=== PATIENT | male | born 1960 | race Caucasian/White ===

== ENCOUNTER 2018-06-01 18:38 | Inpatient (IN) | payer MEDICAID ==
[~2018-06-01] VITALS: Ht 177.8 cm; Wt 69.9 kg
[2018-06-01] MEDS ORDERED: FERROUS FUMARA324 M1 PO (18:54)
[2018-06-01] MEDS ORDERED: NOVOLOG100 UNIT/3 SUBQ (18:54)
[2018-06-01] MEDS ORDERED: LEXAPRO10 MG ORAL (18:54)
[2018-06-01] MEDS ORDERED: ZYPREXA10 MG ORAL (18:54)
[2018-06-01 19:00] VITALS: BP 95/44
[2018-06-01 19:23] LABS: HEMATOCRIT 24.3 % (42.0-52.0); HEMOGLOBIN 8.5 G/DL (14.2-18.0); MEAN CORPUSCULAR VOLUME 89 FL (80-99); PLATELET COUNT 220 K/UL (150-450); RED BLOOD COUNT 2.72 M/UL (4.70-6.10); RED CELL DISTRIBUTION WIDTH 11.6 % (11.6-14.8); WHITE BLOOD COUNT 18.3 K/UL (4.8-10.8)
[2018-06-01 19:25] LABS: BASOPHILS % (AUTO) 0.3 % (0.0-2.0); EOSINOPHILS % (AUTO) 1.5 % (0.0-3.0); LYMPHOCYTES % (AUTO) 7.4 % (20.0-45.0); MONOCYTES % (AUTO) 5.4 % (1.0-10.0); NEUTROPHILS % (AUTO) 85.4 % (45.0-75.0)
[2018-06-01 19:31] LABS: ANION GAP 11 mmol/L (5-15); APPEARANCE,URINE CLOUDY; BILIRUBIN, URINE NEGATIVE (NEGATIVE); BLOOD UREA NITROGEN 61 mg/dL (7-18); CALCIUM 9.2 MG/DL (8.5-10.1); CARBON DIOXIDE 27 MMOL/L (21-32); CHLORIDE 91 MMOL/L (98-107); COLOR,URINE PALE YELLOW; CREATININE 3.7 MG/DL (0.55-1.30); GLUCOSE, URINE (UA) NEGATIVE (NEGATIVE); KETONES,URINE NEGATIVE (NEGATIVE); LEUKOCYTE ESTERASE ,URINE 3+ (NEGATIVE); NITRITE,URINE NEGATIVE (NEGATIVE); PH,URINE 6 (4.5-8.0); POTASSIUM 5.1 MMOL/L (3.5-5.1); PROTEIN,URINE 1+ (NEGATIVE); SODIUM 128 MMOL/L (136-145); UROBILINOGEN,URINE NORMAL MG/DL (0.0-1.0)
[2018-06-01 19:58] LABS: ALANINE AMINOTRANSFERASE 20 U/L (12-78); ALBUMIN 2.1 G/DL (3.4-5.0); ALBUMIN/GLOBULIN RATIO 0.4 (1.0-2.7); ALKALINE PHOSPHATASE 73 U/L (46-116); ASPARTATE AMINO TRANSFERASE 22 U/L (15-37); BILIRUBIN,TOTAL 0.3 MG/DL (0.2-1.0); CKMB 0.6 NG/ML (0.0-3.6); CREATINE KINASE 148 U/L (26-308); PHOSPHORUS 5.7 MG/DL (2.5-4.9)
--- NOTE | 2018-06-01 20:37 | Emergency Room Report ---
History of Present Illness General Chief Complaint: Abnormal Labs Source: Patient Present Illness HPI Patient is a 58-year-old male sent in snf by ambulance after increased generalized weakness and fever. Patient was noted to be type I diabetic. Previous amputation to his left lower extremity. He was noted to have increased white blood count on laboratory testing at the facility. Patient was sent in for possible pneumonia. Patient was noted to have increased generalized weakness. History is markedly limited by patient's mental status. Allergies: Coded Allergies: DIVALPROEX SODIUM (Verified Allergy, Unknown, 06/01/18) PENICILLINS (Unverified Allergy, Unknown, 06/01/18) Uncoded Allergies: PENICILLIN (Allergy, Unknown, 06/01/18) Patient History Past Medical History: see triage record, DM Reviewed Nursing Documentation: PMH: Agreed; PSxH: Agreed Nursing Documentation-PMH Hx Hypertension: Yes Hx Diabetes: Yes History Of Psychiatric Problem: Yes - Schizophrenia Hx Seizures: Yes Review of Systems All Other Systems: limited Physical Exam Vital Signs Date Time Temp Pulse Resp B/P (MAP) Pulse Ox O2 Delivery O2 Flow Rate FiO2 06/01/18 18:48 98.4 119 20 89/62 98 Nasal Cannula 2.0 98.4 Sp02 EP Interpretation: reviewed, normal General Appearance: normal inspection, well appearing, no apparent distress, alert, GCS 15 Head: atraumatic ENT: normal ENT inspection, hearing grossly normal, normal voice Neck: normal inspection, supple, no bony tend, limited range of motion Respiratory: normal inspection, no respiratory distress, no retraction, wheezing Cardiovascular #1: no edema, tachycardia Gastrointestinal: normal bowel sounds, soft, no guarding, other - gtube Genitourinary: no CVA tenderness Musculoskeletal: back normal, decreased range of motion Neurologic: normal inspection, alert, responsive, speech normal, motor weakness Psychiatric: depressed affect Skin: normal inspection, normal color, no rash Medical Decision Making Diagnostic Impression: Primary Impression: Sepsis Additional Impressions: UTI (urinary tract infection) Pneumonia Amputated left leg Renal insufficiency ER Course Patient presented for fever. Differential diagnosis included wasn't limited to pneumonia, urinary tract infection, drug fever, allergic reaction, sepsis, cholecystitis, among others.Because of complexity of patient's case laboratory testing and imaging studies were ordered. Laboratory testing was notable for elevated white blood count as well as elevated BUN/creatinine consistent with acute renal insufficiency urinalysis showed evidence of gross infection. The patient started on IV fluids as well as IV antibiotics. Chest x-ray one view showed a right lower lobe atelectasis possible infiltrate. Dr. Joyce was contacted for inpatient management due to covering physician. Labs Test 06/01/18 18:50 White Blood Count 18.3 K/UL (4.8-10.8) Red Blood Count 2.72 M/UL (4.70-6.10) Hemoglobin 8.5 G/DL (14.2-18.0) Hematocrit 24.3 % (42.0-52.0) Mean Corpuscular Volume 89 FL (80-99) Mean Corpuscular Hemoglobin 31.4 PG (27.0-31.0) Mean Corpuscular Hemoglobin Concent 35.0 G/DL (32.0-36.0) Red Cell Distribution Width 11.6 % (11.6-14.8) Platelet Count 220 K/UL (150-450) Mean Platelet Volume 7.3 FL (6.5-10.1) Neutrophils (%) (Auto) 85.4 % (45.0-75.0) Lymphocytes (%) (Auto) 7.4 % (20.0-45.0) Monocytes (%) (Auto) 5.4 % (1.0-10.0) Eosinophils (%) (Auto) 1.5 % (0.0-3.0) Basophils (%) (Auto) 0.3 % (0.0-2.0) Urine Color Pale yellow Urine Appearance Cloudy Urine pH 6 (4.5-8.0) Urine Specific [place] 1.005 (1.005-1.035) Urine Protein 1+ (NEGATIVE) Urine Glucose (UA) Negative (NEGATIVE) Urine Ketones Negative (NEGATIVE) Urine Blood 3+ (NEGATIVE) Urine Nitrite Negative (NEGATIVE) Urine Bilirubin Negative (NEGATIVE) Urine Urobilinogen Normal MG/DL (0.0-1.0) Urine Leukocyte Esterase 3+ (NEGATIVE) Urine RBC 5-10 /HPF (0 - 0) Urine WBC Tntc /HPF (0 - 0) Urine Squamous Epithelial Cells None /LPF (NONE/OCC) Urine Bacteria Many /HPF (NONE) Sodium Level 128 MMOL/L (136-145) Potassium Level 5.1 MMOL/L (3.5-5.1) Chloride Level 91 MMOL/L (98-107) Carbon Dioxide Level 27 MMOL/L (21-32) Anion Gap 11 mmol/L (5-15) Blood Urea Nitrogen 61 mg/dL (7-18) Creatinine 3.7 MG/DL (0.55-1.30) Estimat Glomerular Filtration Rate 17.0 mL/min (>60) Glucose Level 148 MG/DL (74-106) Lactic Acid Level 1.60 mmol/L (0.4-2.0) Calcium Level 9.2 MG/DL (8.5-10.1) Phosphorus Level 5.7 MG/DL (2.5-4.9) Magnesium Level 2.3 MG/DL (1.8-2.4) Total Bilirubin 0.3 MG/DL (0.2-1.0) Aspartate Amino Transf (AST/SGOT) 22 U/L (15-37) Alanine Aminotransferase (ALT/SGPT) 20 U/L (12-78) Alkaline Phosphatase 73 U/L (46-116) Total Creatine Kinase 148 U/L (26-308) Creatine Kinase MB 0.6 NG/ML (0.0-3.6) Creatine Kinase MB Relative Index 0.4 Troponin I 0.000 ng/mL (0.000-0.056) Pro-B-Type Natriuretic Peptide 336 pg/mL (0-125) Total Protein 7.1 G/DL (6.4-8.2) Albumin 2.1 G/DL (3.4-5.0) Globulin 5.0 g/dL Albumin/Globulin Ratio 0.4 (1.0-2.7) Last Vital Signs Date Time Temp Pulse Resp B/P (MAP) Pulse Ox O2 Delivery O2 Flow Rate FiO2 06/01/18 19:00 99.3 98 20 95/44 97 Room Air 99.3 06/01/18 18:48 2.0 Status: unchanged Disposition: ADMITTED INPATIENT Condition: Serious Referrals: Dony Sanchez MD (PCP) Tha Lobo MD Jun 01, 2018 20:37
[2018-06-01] MEDS ORDERED: Clindamycin 600mg 50 ML IVPB ONE (20:45)
[2018-06-01] MEDS ORDERED: Folic Acid 1 MG, Magnesium Sulfate 2,000 MG, Multivitamin - 12 Injection 10 ML, Thiamin... IV ONE ×5 (21:15)
[2018-06-01] MEDS ORDERED: Folic Acid 1 MG, Magnesium Sulfate 2,000 MG, Multivitamin - 12 Injection 10 ML in NS 10... IV ONE (21:15)
[2018-06-01] MEDS ORDERED: [UNRECOGNIZED DRUG - OTHER] IV ONE (21:30)
[2018-06-01] MEDS ORDERED: THIAMINE HCL IV ONE (21:30)
[2018-06-01] MEDS ORDERED: FOLIC ACID IV ONE (21:30)
[2018-06-01] MEDS ORDERED: MULTIVITAMIN IV ONE (21:30)
[2018-06-01 22:00] VITALS: BP 87/49
[2018-06-01] MEDS ORDERED: Thiamine HCl 100 MG in NS 55 ML IV ONE (22:00)
[2018-06-01 22:39] VITALS: BP 91/58
[2018-06-01 23:00] VITALS: BP 83/45
[2018-06-01] MEDS ORDERED: Azithromycin 500 MG in D5W 275 ML IV ONE (23:45)
[2018-06-01] MEDS ORDERED: cefTRIAXone 1 GM in D5W 55 ML IVPB ONE (23:45)
[2018-06-02] VITALS (61 sets, daily range): BP systolic 77–122; BP diastolic 39–68
[2018-06-02] MEDS: NovoLOG Insulin Flexpen SUBQ SCH ×4 (00:48→18:49)
[2018-06-02] MEDS: levETIRAcetam 500mg/5ml Liquid NG SCH ×3 (00:52→21:02)
[2018-06-02] MEDS ORDERED: DOPamine 400mg/250ml 250 ML IV PRN (01:15)
[2018-06-02 06:11] LABS: HEMATOCRIT 21.5 % (42.0-52.0); HEMOGLOBIN 7.4 G/DL (14.2-18.0); MEAN CORPUSCULAR VOLUME 92 FL (80-99); PLATELET COUNT 201 K/UL (150-450); RED BLOOD COUNT 2.34 M/UL (4.70-6.10); RED CELL DISTRIBUTION WIDTH 12.1 % (11.6-14.8)
[2018-06-02 06:47] LABS: ALANINE AMINOTRANSFERASE 19 U/L (12-78); ALBUMIN 1.9 G/DL (3.4-5.0); ALBUMIN/GLOBULIN RATIO 0.4 (1.0-2.7); ALKALINE PHOSPHATASE 61 U/L (46-116); ANION GAP 11 mmol/L (5-15); ASPARTATE AMINO TRANSFERASE 20 U/L (15-37); BILIRUBIN,TOTAL 0.3 MG/DL (0.2-1.0); BLOOD UREA NITROGEN 55 mg/dL (7-18); CALCIUM 8.7 MG/DL (8.5-10.1); CARBON DIOXIDE 23 MMOL/L (21-32); CHLORIDE 99 MMOL/L (98-107); CREATININE 3.3 MG/DL (0.55-1.30); PHOSPHORUS 4.6 MG/DL (2.5-4.9); POTASSIUM 4.4 MMOL/L (3.5-5.1); SODIUM 133 MMOL/L (136-145)
[2018-06-02] MEDS ORDERED: Lidocaine 1% Plain 30 ml INJ PRN (07:00)
[2018-06-02] MEDS ORDERED: Heparin 2000 units/Ns 1000ml INJ PRN (07:00)
[2018-06-02] MEDS ORDERED: Megace 400mg/10ml Susp ORAL SCH (09:00)
[2018-06-02] MEDS ORDERED: Pantoprazole Inj IVP SCH (09:00)
[2018-06-02] MEDS ORDERED: Azithromycin 250mg tab ORAL SCH (09:00)
[2018-06-02] MEDS: Heparin 5000 units/ml inj SUBQ SCH ×2 (09:00→21:05)
--- NOTE | 2018-06-02 09:00 | Operative Note - PDOC ---
Operative Note Operative Note Date of Operation/Procedure: Jun 02, 2018 Pre-op Diagnosis: sepsis, hypotension, critical care Procedure: right subclavian central venous catheter insertion Post-op Diagnosis: same as pre-op Surgeon: dhruv Anesthesia: local Specimen: none Complications: none Condition: unstable Fluids: n/a Estimated Blood Loss: minimal Drains: none Implant(s) used?: No Indications for Procedure 58M in septic shock admitted to ICU for critical care and management. Found to by tachy and hypotensive. Currently on Pressors. Central venous access urgently needed for care. Unfortunately no next of kin available and patient only AAOx1. Line needed for care and emergency consent signed. Medically necessary in critically ill patient. Description of Procedure Patient was made comfortable at bedside. Placed in correct position. Sterile technique and procedure carried out. right chest wall prepped and draped in standard surgical fashion. local anesthetic infiltrated. finder needle used to cannulate right subclavian vein on second pass. good venous flow noted. guide wire passed and needle removed. small skin incision made and dilator used. triple lumen catheter placed over wire and wire discarded. all ports flushed and aspirated well. catheter sutured in place. dressings applied. cxr ordered. patient tolerated procedure well. Shiv Horvath Jun 02, 2018 09:00
[2018-06-02] MEDS ORDERED: Lidocaine 1% MPF 10mg/ml 5ml INJ PRN (09:15)
--- NOTE | 2018-06-02 09:33 | Diagnostic Imaging Report ---
EXAM: XR Chest, 1 View CLINICAL HISTORY: LINE TECHNIQUE: Frontal view of the chest. COMPARISON: Chest x-ray dated 06/01/18 FINDINGS: Lungs: Subsegmental atelectasis in the right lung base, improved compared to the prior exam. The lungs are otherwise clear. Pleural space: Unremarkable. The costophrenic angles are sharp. No visible pneumothorax. Heart: Unremarkable. No cardiomegaly. Mediastinum: Unremarkable. Bones/joints: Unremarkable. Tubes, lines and devices: Interval placement of a right subclavian- approach central venous catheter with the tip in the region of the SVC/right atrial junction. EKG leads overlie the thorax. IMPRESSION: 1. Interval placement of a right subclavian-approach central venous catheter with the tip in the region of the SVC/right atrial junction. 2. Subsegmental atelectasis in the right lung base, improved compared to the prior exam.
--- NOTE | 2018-06-02 09:41 | Pulmonolgy Critical Care Note ---
Critical Care - Asmt/Plan Problems: (1) Septic shock (2) ATN (acute tubular necrosis) (3) UTI (urinary tract infection) (4) Amputated left leg (5) Feeding by G-tube (6) Diabetes Respiratory: monitor respiratory rate, adjust FIO2, CXR Cardiac: continue to monitor HR/BP Renal: F/U I&O, keep IV fluid Infectious Disease: check cultures Gastrointestinal: continue feedings/current rate Endocrine: monitor blood sugar Hematologic: monitor H/H, transfuse if hgb<8.5 Neurologic: PRN Ativan, keep patient comfortable Prophylaxis: Protonix Notes Reviewed: insurance investigator, renal Discussed with: nurses Critical Care - Objective Last 24 Hour Vital Signs Date Time Temp Pulse Resp B/P (MAP) Pulse Ox O2 Delivery O2 Flow Rate FiO2 06/02/18 07:00 102 25 82/44 (57) 100 06/02/18 06:30 101 25 78/39 (52) 100 06/02/18 06:30 84/45 06/02/18 06:00 106 23 83/41 (55) 100 06/02/18 05:45 103 27 85/46 (59) 100 06/02/18 05:30 101 19 77/40 (52) 100 06/02/18 05:15 102 21 79/41 (54) 100 06/02/18 05:00 105 21 82/45 (57) 97 06/02/18 04:45 103 25 80/48 (59) 97 06/02/18 04:30 105 25 80/40 (53) 97 06/02/18 04:15 108 25 77/39 (52) 98 06/02/18 04:00 Room Air 06/02/18 04:00 98.3 105 23 93/54 (67) 98 98.3 06/02/18 04:00 105 06/02/18 00:00 Room Air 06/01/18 23:19 Room Air 06/01/18 23:00 99 25 83/45 (58) 98 06/01/18 22:39 104 06/01/18 22:39 97.8 104 26 91/58 (69) 96 97.8 06/01/18 22:15 99.5 106 12 87/49 95 Room Air 2.0 99.5 06/01/18 22:00 99.5 106 12 87/49 95 Room Air 99.5 06/01/18 19:00 99.3 98 20 95/44 97 Room Air 99.3 06/01/18 18:48 98.4 119 20 89/62 98 Nasal Cannula 2.0 98.4 Status: awake Condition: critical HEENT: atraumatic Neck: full ROM Lungs: clear Heart: HR/BP stable Abdomen: soft, non-tender Extremities: no C/C/E Decubiti: location Micro: Microbiology Date/Time Source Procedure Growth Status 06/01/18 18:50 Urine,Clean Catch Urine Culture - Preliminary Gram Negative Gomez Resulted Accucheck: 107 Critical Care - Subjective ROS Limited/Unobtainable: Yes Condition: critical EKG Rhythm: Sinus Rhythm I&O: Intake and Output 06/01/18 06/02/18 19:00 07:00 Intake Total 610.631 ml Output Total 3300 ml Balance -2689.369 ml Intake Oral 0 ml IV Total 610.631 ml Output Urine Total 3300 ml # Bowel Movements 1 Labs: Laboratory Tests Test 06/01/18 18:50 06/02/18 05:18 White Blood Count 18.3 K/UL (4.8-10.8) H 11.0 K/UL (4.8-10.8) H Red Blood Count 2.72 M/UL (4.70-6.10) L 2.34 M/UL (4.70-6.10) L Hemoglobin 8.5 G/DL (14.2-18.0) L 7.4 G/DL (14.2-18.0) L Hematocrit 24.3 % (42.0-52.0) L 21.5 % (42.0-52.0) L Mean Corpuscular Volume 89 FL (80-99) 92 FL (80-99) Mean Corpuscular Hemoglobin 31.4 PG (27.0-31.0) H 31.6 PG (27.0-31.0) H Mean Corpuscular Hemoglobin Concent 35.0 G/DL (32.0-36.0) 34.3 G/DL (32.0-36.0) Red Cell Distribution Width 11.6 % (11.6-14.8) 12.1 % (11.6-14.8) Platelet Count 220 K/UL (150-450) 201 K/UL (150-450) Mean Platelet Volume 7.3 FL (6.5-10.1) 7.9 FL (6.5-10.1) Neutrophils (%) (Auto) 85.4 % (45.0-75.0) H % (45.0-75.0) Lymphocytes (%) (Auto) 7.4 % (20.0-45.0) L % (20.0-45.0) Monocytes (%) (Auto) 5.4 % (1.0-10.0) % (1.0-10.0) Eosinophils (%) (Auto) 1.5 % (0.0-3.0) % (0.0-3.0) Basophils (%) (Auto) 0.3 % (0.0-2.0) % (0.0-2.0) Urine Color Pale yellow Urine Appearance Cloudy Urine pH 6 (4.5-8.0) Urine Specific [place] 1.005 (1.005-1.035) Urine Protein 1+ (NEGATIVE) H Urine Glucose (UA) Negative (NEGATIVE) Urine Ketones Negative (NEGATIVE) Urine Blood 3+ (NEGATIVE) H Urine Nitrite Negative (NEGATIVE) Urine Bilirubin Negative (NEGATIVE) Urine Urobilinogen Normal MG/DL (0.0-1.0) Urine Leukocyte Esterase 3+ (NEGATIVE) H Urine RBC 5-10 /HPF (0 - 0) H Urine WBC Tntc /HPF (0 - 0) H Urine Squamous Epithelial Cells None /LPF (NONE/OCC) Urine Bacteria Many /HPF (NONE) H Sodium Level 128 MMOL/L (136-145) L 133 MMOL/L (136-145) L Potassium Level 5.1 MMOL/L (3.5-5.1) 4.4 MMOL/L (3.5-5.1) Chloride Level 91 MMOL/L (98-107) L 99 MMOL/L (98-107) Carbon Dioxide Level 27 MMOL/L (21-32) 23 MMOL/L (21-32) Anion Gap 11 mmol/L (5-15) 11 mmol/L (5-15) Blood Urea Nitrogen 61 mg/dL (7-18) H 55 mg/dL (7-18) H Creatinine 3.7 MG/DL (0.55-1.30) H 3.3 MG/DL (0.55-1.30) H Estimat Glomerular Filtration Rate 17.0 mL/min (>60) 19.4 mL/min (>60) Glucose Level 148 MG/DL (74-106) H 100 MG/DL (74-106) Lactic Acid Level 1.60 mmol/L (0.4-2.0) 1.90 mmol/L (0.4-2.0) Calcium Level 9.2 MG/DL (8.5-10.1) 8.7 MG/DL (8.5-10.1) Phosphorus Level 5.7 MG/DL (2.5-4.9) H 4.6 MG/DL (2.5-4.9) Magnesium Level 2.3 MG/DL (1.8-2.4) 2.2 MG/DL (1.8-2.4) Total Bilirubin 0.3 MG/DL (0.2-1.0) 0.3 MG/DL (0.2-1.0) Aspartate Amino Transf (AST/SGOT) 22 U/L (15-37) 20 U/L (15-37) Alanine Aminotransferase (ALT/SGPT) 20 U/L (12-78) 19 U/L (12-78) Alkaline Phosphatase 73 U/L (46-116) 61 U/L (46-116) Total Creatine Kinase 148 U/L (26-308) Creatine Kinase MB 0.6 NG/ML (0.0-3.6) Creatine Kinase MB Relative Index 0.4 Troponin I 0.000 ng/mL (0.000-0.056) 0.000 ng/mL (0.000-0.056) Pro-B-Type Natriuretic Peptide 336 pg/mL (0-125) H Total Protein 7.1 G/DL (6.4-8.2) 6.4 G/DL (6.4-8.2) Albumin 2.1 G/DL (3.4-5.0) L 1.9 G/DL (3.4-5.0) L Globulin 5.0 g/dL 4.5 g/dL Albumin/Globulin Ratio 0.4 (1.0-2.7) L 0.4 (1.0-2.7) L Neutrophils % (Manual) Pending Lymphocytes % (Manual) Pending Platelet Estimate Pending Platelet Morphology Pending Dony Sanchez MD Jun 02, 2018 09:41
[2018-06-02] MEDS ORDERED: Morphine Sulfate 4mg/ml Inj (IV USE ONLY) IVP PRN (09:45)
[2018-06-02] MEDS ORDERED: Miralax 17gm pkt ORAL PRN (09:45)
[2018-06-02] MEDS ORDERED: Albuterol/Ipratropium 3ml neb HHN PRN (09:45)
[2018-06-02] MEDS ORDERED: Ertapenem 0.5 GM in NS 55 ML IV SCH (10:30)
[2018-06-02] MEDS ORDERED: Vancomycin 1250mg/D5W 250ml IVPB ONE (11:00)
[2018-06-02] MEDS ORDERED: Amikacin Rx to dose MISC PRN (11:30)
[2018-06-02] MEDS: Ertapenem 0.5 GM in NS 55 ML IV SCH (11:52)
--- NOTE | 2018-06-02 12:55 | Consultation ---
Consult Note Consult Note asked to eval for renal failure- Patient is a 58-year-old male sent in longterm by ambulance after increased generalized weakness and fever. Patient was noted to be type I diabetic. Previous amputation to his left lower extremity. He was noted to have increased white blood count on laboratory testing at the facility. Patient was sent in for possible pneumonia. Patient was noted to have increased generalized weakness. History is markedly limited by patient's mental status. Allergies: DIVALPROEX SODIUM (Verified Allergy, Unknown, 06/01/18) PENICILLINS (Unverified Allergy, Unknown, 06/01/18) Hx Hypertension: Yes Hx Diabetes: Yes History Of Psychiatric Problem: Yes - Schizophrenia Hx Seizures: Yes in ICU examined data reviewed discussed with wash and greaser/Plan Acute renal failure- Hypotension, on Pressors Sever Anemia UTI , Pneumonia, Amputated left leg Transfuse Hydrate ferreira Avoid Nephrotoxics monitor renal parameters trial hydrocortison Albumin bolus Jose Menon MD Jun 02, 2018 12:55
--- NOTE | 2018-06-02 13:06 | General Progress Note ---
Progress Note Progress Note pt needs blood transfusion. He doesn't have any family member to sing his consents. Pt himself in not capable of singing any consent either. Dony Sanchez MD Jun 02, 2018 13:06
[2018-06-02 13:28] LABS: CREATINE KINASE 160 U/L (26-308); FERRITIN 560 NG/ML (8-388); GAMMA GLUTAMYL TRANSPEPTIDASE 19 U/L (5-85)
[2018-06-02] MEDS ORDERED: Amikacin 450 MG in NS 110 ML IV SCH (13:30)
--- NOTE | 2018-06-02 13:52 | Consultation ---
Consult Note Consult Note [id number] Sanya Dodson MD Jun 02, 2018 13:52
[2018-06-02 14:25] LABS: % IRON SATURATION 14 % (15-50); IRON 18 ug/dL (50-175); TOTAL IRON BINDING CAPACITY 127 ug/dL (250-450)
[2018-06-02] MEDS: Hydrocortisone 100mg Inj IV SCH ×2 (15:27→21:34)
[2018-06-02] MEDS ORDERED: Tubing IV Secondary IV ONE (16:41)
[2018-06-02] MEDS ORDERED: D5W 275ml ONE (16:41)
--- NOTE | 2018-06-02 17:53 | History & Physical ---
History and Physical History & Physicial Dictated for Int Med-dr Joyce no. [id number] Manjinder Marley MD Jun 02, 2018 17:53
--- NOTE | 2018-06-02 19:00 | Consultation ---
DATE OF CONSULTATION: 06/02/2018 INFECTIOUS DISEASE CONSULTATION CONSULTING PHYSICIAN: Sanya Dodson M.D. REFERRING PHYSICIAN: Dony Sanchez M.D. REASON FOR CONSULTATION: Evaluation of the patient for sepsis and antibiotic management. HISTORY OF PRESENT ILLNESS: The patient is a 58-year-old male with multiple medical problems as listed below, who was admitted to this medical center for general weakness. The patient was found to be febrile. It was noted that the patient has urinary obstruction. A Vargas catheter was placed with drainage of over 3 L. Initially, urine was purulent. Urine culture is growing gram-negative sin. The patient was found to be hypotensive and he was admitted to ICU and started on pressors. Infectious Diseases consultation has been requested for further evaluation of the patient's antibiotic management. The patient is lethargic and unable to provide much information. PAST MEDICAL HISTORY: 1. History of duodenal fistula. 2. History of left BKA. 3. History of feeding tube placement. 4. Diabetes. 5. Depression/anxiety. 6. Anemia. 7. History of seizure disorder. 8. Hypertension. 9. History of recent suicidal attempt. ALLERGIES: Penicillin. FAMILY HISTORY: Unavailable. REVIEW OF SYSTEMS: Unobtainable. MEDICATIONS: Vancomycin, amikacin, and ertapenem. PHYSICAL EXAMINATION: VITAL SIGNS: Temperature 99.5, blood pressure 82/44, pulse 114, respiratory rate 20. HEENT: No pale conjunctivae. No icterus. NECK: No lymphadenopathy. CHEST: Feeding tube in place. EXTREMITIES: Left BKA. NEUROLOGIC: Lethargic. GENITOURINARY: Vargas catheter in place. LABORATORY DATA: White blood cell count on admission 18 and today it is 11, hemoglobin 7.4, platelets 201,000. UA, too numerous to count white blood cells. BUN 55, creatinine 3.3. Liver function tests unremarkable. Chest x-ray, interval placement of right subclavian vein , right lung base atelectasis. ASSESSMENT: The patient is a 58-year-old unfortunate male with: 1. Sepsis/septic shock. 2. UTI (complicated) in the setting of urinary obstruction. 3. Fever. 4. Leukocytosis, improving. 5. CKD versus FARHANA. PLAN: 1. We will continue the patient on IV ertapenem and vancomycin for now day #1, hold amikacin. 2. Monitor CBC. 3. Monitor BMP. 4. Monitor cultures (blood, sputum, urine). 5. Monitor chest x-ray. 6. Based on the patient's clinical course and laboratories, we will do further recommendation. Thank you for this consultation. I will follow the patient with you during this admission. Sanya Dodson M.D. DR: Jean-Pierre JOB#: [id number] CC:
--- NOTE | 2018-06-02 19:15 | History and Physical Report ---
DATE OF ADMISSION: 06/01/2018 CHIEF COMPLAINT: The patient is a 58-year-old male who presents with chief complaint of fever and generalized weakness. HISTORY OF PRESENT ILLNESS: The patient is a resident of [facility]. The patient has a history of cerebrovascular accident with resulting hemiparesis. The patient himself is mostly nonverbal. Much of the history and physical is obtained from the patient's chart. According to staff at [facility], the patient began to experience fever yesterday, 06/01/2018. The patient previously had been admitted to [facility] for reversal of PEG and placement of jejunostomy tube. The patient presented to [facility] emergency room. The patient was found to have urinary tract infection. The patient is admitted with fever and urinary tract infection to rule out sepsis. PAST MEDICAL HISTORY: Significant for 1. Diabetes type 1. 2. Hypertension. 3. Seizure disorder. 4. Cerebrovascular disease status post cerebrovascular accident. 5. Multi infarct dementia. PAST SURGICAL HISTORY: Significant for 1. Duodenal to transverse colon fistulotomy on 05/25/2018. 2. Laparoscopic placement of jejunostomy tube. 3. PEG placement. 4. PEG reversal. 5. Left [id number] amputation. CURRENT MEDICATIONS: 1. Lexapro 10 mg p.o. daily. 2. Iron fumarate 324 mg by p.o. daily. 3. NovoLog sliding scale. 4. Zyprexa 10 mg p.o. daily. ALLERGIES: To 1. Depakote. 2. Penicillin. SOCIAL HISTORY: The patient lives at [facility]. The patient denies tobacco or alcohol use. REVIEW OF SYSTEMS: Unable to assess secondary to the patient's mental status. PHYSICAL EXAMINATION: GENERAL: The patient is thin appearing, cachectic white male, in no apparent distress. VITAL SIGNS: Temperature 98.3 degrees, respirations 13 to 23, pulse 105 to 108, and blood pressure 85 to 93 over 43 to 54. HEENT: Eyes, pupils equal and responsive to light and accommodation. Extraocular movements intact. NECK: Supple without lymphadenopathy. CHEST: Lungs are clear to auscultation bilaterally without wheezes or rales. CARDIOVASCULAR: Tachycardic, regular rate. S1 and S2 are normal without murmurs, rubs, or gallops. ABDOMEN: Soft, nondistended with positive bowel sounds. No evidence of hepatosplenomegaly. Currently, no rebound or guarding noted. EXTREMITIES: Negative for clubbing, cyanosis, or edema. RECTAL: Refused. GENITAL: Refused. NEUROLOGIC: Cranial nerves II through XII are grossly intact without focal deficits. Motor strength is 5/5 bilaterally. LABORATORY AND DIAGNOSTIC DATA: WBC 18.3, hemoglobin 8.5, hematocrit 24.3, and platelets 223,000. Sodium 128, potassium 5.1, chloride 91, CO2 27, BUN 61, creatinine 3.7, and glucose 148. Urinalysis showed 1+ protein, 3+ blood, and 3+ leukocyte esterase with wbc's too numerous to count. ASSESSMENT: This is a 58-year-old white male 1. Generalized weakness. 2. Fever. 3. Leukocytosis. 4. Anemia. 5. Diabetes type 1. 6. Seizure disorder. 7. Hypertension. 8. Renal failure. 9. Cerebrovascular disease. 10. History of left hkgne-lun-vula amputation. 11. Anorexia. 12. Multi infarct dementia. TREATMENT: 1. Urinary tract infection. The patient has been started empirically on ertapenem and vancomycin. An Infectious Disease consultation has been obtained with Dr. Dodson. We will follow recommendations of Dr. Dodson. 2. Anemia. The patient is status post transfusion one unit of packed RBCs. 3. Diabetes type 1. Continue NovoLog sliding scale as above. 4. Seizure disorder. Continue Keppra as above. 5. Hypertension. The patient is currently hypotensive on dopamine. 6. Renal failure. A Nephrology consultation is pending with Dr. Menon. 7. Cerebrovascular disease, status post cerebrovascular accident. 8. Left svwme-orm-xqte amputation. 9. Anorexia. 10. Multi infarct dementia. 11. Jejunostomy tube. The patient currently has a Red Vipul in place. An abdominal x-ray is pending to determine location of Red Vipul. Manjinder Marley M.D. DR: SO JOB#: [id number] CC:
[2018-06-02] MEDS ORDERED: Dyna-Hex 2% Top Sol 2oz TOPIC SCH (20:00)
[2018-06-02] MEDS: Dyna-Hex 2% Top Sol 2oz TOPIC SCH (20:03)
[2018-06-02] MEDS: Pantoprazole Inj IVP SCH (21:02)
[2018-06-02] MEDS ORDERED: Amikacin 0 MG in NS 110 ML IV SCH (23:45)
[2018-06-02] MEDS ORDERED: Ertapenem 1 GM in NS 55 ML IV SCH (23:45)
[2018-06-02] MEDS ORDERED: Vancomycin 1 GM in D5W 275 ML IV SCH (23:45)
[2018-06-03] VITALS (63 sets, daily range): BP systolic 75–126; BP diastolic 38–68
[2018-06-03] MEDS: Hydrocortisone 100mg Inj IV SCH ×3 (05:25→21:16)
[2018-06-03] MEDS: NovoLOG Insulin Flexpen SUBQ SCH ×4 (05:28→17:32)
[2018-06-03 05:45] LABS: HEMATOCRIT 26.7 % (42.0-52.0); HEMOGLOBIN 8.9 G/DL (14.2-18.0); MEAN CORPUSCULAR VOLUME 91 FL (80-99); PLATELET COUNT 276 K/UL (150-450); RED BLOOD COUNT 2.92 M/UL (4.70-6.10); RED CELL DISTRIBUTION WIDTH 12.5 % (11.6-14.8); WHITE BLOOD COUNT 10.5 K/UL (4.8-10.8)
[2018-06-03 06:14] LABS: ALANINE AMINOTRANSFERASE 21 U/L (12-78); ALBUMIN 2.1 G/DL (3.4-5.0); ALBUMIN/GLOBULIN RATIO 0.5 (1.0-2.7); ALKALINE PHOSPHATASE 56 U/L (46-116); ANION GAP 10 mmol/L (5-15); ASPARTATE AMINO TRANSFERASE 21 U/L (15-37); BILIRUBIN,TOTAL 0.5 MG/DL (0.2-1.0); BLOOD UREA NITROGEN 12 mg/dL (7-18); CALCIUM 8.5 MG/DL (8.5-10.1); CARBON DIOXIDE 23 MMOL/L (21-32); CHLORIDE 105 MMOL/L (98-107); CREATININE 0.5 MG/DL (0.55-1.30); PHOSPHORUS 2.4 MG/DL (2.5-4.9); POTASSIUM 4.1 MMOL/L (3.5-5.1); SODIUM 138 MMOL/L (136-145)
[2018-06-03 06:36] LABS: ALANINE AMINOTRANSFERASE 18 U/L (12-78); ALBUMIN 2.1 G/DL (3.4-5.0); ALKALINE PHOSPHATASE 56 U/L (46-116); ASPARTATE AMINO TRANSFERASE 21 U/L (15-37); BILIRUBIN,DIRECT 0.1 MG/DL (0.0-0.3); BILIRUBIN,TOTAL 0.5 MG/DL (0.2-1.0); CHOLESTEROL 71 MG/DL (< 200); HDL CHOLESTEROL 15 MG/DL (40-60); TRIGLYCERIDES 127 MG/DL (30-150)
--- NOTE | 2018-06-03 07:24 | General Progress Note ---
Assessment/Plan Problem List: (1) Diabetes ICD Codes: E11.9 - Type 2 diabetes mellitus without complications SNOMED: 68321900 (2) Sepsis ICD Codes: A41.9 - Sepsis, unspecified organism SNOMED: 45247352, 169787270 (3) Renal insufficiency ICD Codes: N28.9 - Disorder of kidney and ureter, unspecified SNOMED: 872080035, 641697388 (4) Amputated left leg ICD Codes: Z89.612 - Acquired absence of left leg above knee SNOMED: 793694885 (5) feeding by Jt Assessment/Plan start JTF anemia work up abx per ID fu labs supportive care chart from an out side facility was reviewed Subjective ROS Limited/Unobtainable: No Allergies: Coded Allergies: DIVALPROEX SODIUM (Verified Allergy, Unknown, 06/01/18) PENICILLINS (Unverified Allergy, Unknown, 06/01/18) Uncoded Allergies: PENICILLIN (Allergy, Unknown, 06/01/18) Objective Last 24 Hour Vital Signs Date Time Temp Pulse Resp B/P (MAP) Pulse Ox O2 Delivery O2 Flow Rate FiO2 06/03/18 06:45 90 23 117/51 (73) 100 06/03/18 06:30 67 23 101/51 (68) 100 06/03/18 06:15 84 17 106/56 (73) 100 06/03/18 06:00 80 16 89/65 (73) 100 06/03/18 05:45 90 14 117/53 (74) 100 06/03/18 05:30 89 16 102/50 (67) 100 06/03/18 05:25 104/50 06/03/18 05:15 83 10 104/50 (68) 100 06/03/18 05:00 89 15 99/56 (70) 99 06/03/18 04:45 74 14 126/38 (67) 100 06/03/18 04:15 88 14 75/42 (53) 100 06/03/18 04:00 98.3 96 16 100/57 (71) 99 98.3 06/03/18 04:00 96 06/03/18 04:00 Room Air 06/03/18 03:45 100 18 97/56 (70) 99 06/03/18 03:30 93 15 110/62 (78) 99 06/03/18 03:15 73 11 105/54 (71) 100 06/03/18 03:00 90 17 105/58 (74) 100 06/03/18 02:30 88 14 91/49 (63) 99 06/03/18 02:15 84 15 113/62 (79) 99 06/03/18 02:00 92 17 108/59 (75) 100 06/03/18 01:45 90 15 101/61 (74) 99 06/03/18 01:30 95 23 95/61 (72) 99 06/03/18 01:15 101 21 109/62 (78) 99 06/03/18 01:00 91 11 110/59 (76) 100 06/03/18 00:45 89 13 107/58 (74) 100 06/03/18 00:30 90 14 107/61 (76) 99 06/03/18 00:15 91 15 99/56 (70) 100 06/03/18 00:00 99 18 103/57 (72) 100 06/03/18 00:00 Room Air 06/03/18 00:00 89 06/02/18 23:45 83 21 108/58 (75) 100 06/02/18 23:30 86 19 107/57 (74) 100 06/02/18 23:15 89 16 98/61 (73) 100 06/02/18 23:00 98.1 94 19 100/55 (70) 100 98.1 06/02/18 22:45 88 16 101/57 (72) 100 06/02/18 22:30 88 15 99/54 (69) 100 06/02/18 22:15 93 16 104/51 (68) 100 06/02/18 22:00 93 15 98/51 (67) 100 06/02/18 21:45 89 17 101/55 (70) 100 06/02/18 21:30 91 13 99/54 (69) 100 06/02/18 21:15 88 16 100/54 (69) 100 06/02/18 21:00 89 15 101/54 (70) 100 06/02/18 20:45 88 18 95/67 (76) 100 06/02/18 20:30 88 15 98/52 (67) 100 06/02/18 20:15 89 13 98/53 (68) 100 9/15/18 20:00 97 14 92/54 (67) 99 18 20:00 94 06/02/18 20:00 Room Air 06/02/18 19:45 100 13 93/44 (60) 100 06/02/18 19:36 94 13 97/50 (66) 100 06/02/18 19:30 95 14 98/53 (68) 100 06/02/18 19:29 97 20 Nasal Cannula 2.0 28 06/02/18 19:29 99 Nasal Cannula 2.0 28 06/02/18 19:29 Nasal Cannula 2.0 28 06/02/18 19:22 97 18 94/47 (63) 100 06/02/18 19:15 97 15 92/51 (65) 100 06/02/18 19:00 98.9 92 10 98/52 (67) 100 98.9 06/02/18 18:00 99 12 95/66 (76) 99 06/02/18 17:00 98 12 99/68 (78) 99 06/02/18 16:30 95 12 116/60 (78) 99 18 16:00 93 06/02/18 16:00 99/68 06/02/18 16:00 Room Air 06/02/18 16:00 95 12 114/67 (83) 99 06/02/18 15:00 95 12 106/64 (78) 99 06/02/18 14:30 95 12 112/63 (79) 99 06/02/18 14:00 96 12 122/66 (84) 99 06/02/18 14:00 93 06/02/18 13:30 94 12 113/59 (77) 99 06/02/18 13:00 99 12 107/65 (79) 99 06/02/18 12:30 99 12 95/56 (69) 99 06/02/18 12:00 Room Air 06/02/18 12:00 98 12 111/59 (76) 99 06/02/18 12:00 100 06/02/18 11:30 99 12 84/47 (59) 99 06/02/18 11:00 105 12 100/55 (70) 99 18 10:32 82/44 18 10:30 107 12 81/53 (62) 99 06/02/18 10:05 97 Nasal Cannula 2.0 28 06/02/18 10:05 Nasal Cannula 2.0 28 06/02/18 10:04 114 20 Nasal Cannula 2.0 28 06/02/18 10:00 113 12 78/42 (54) 99 06/02/18 09:30 116 12 82/51 (61) 96 06/02/18 09:00 115 12 81/44 (56) 96 06/02/18 08:00 106 06/02/18 08:00 110 12 86/39 (55) 96 06/02/18 08:00 Room Air Intake and Output 06/02/18 06/03/18 19:00 07:00 Intake Total 1357.60 ml 1400.03 ml Output Total 2010 ml 1155 ml Balance -652.40 ml 245.03 ml IV Total 1357.60 ml 1340.03 ml Other 60 ml Output Urine Total 2010 ml 1155 ml Laboratory Tests 06/03/18 04:00: Urine Eosinophils [Pending], Urine Random Sodium 85 06/03/18 04:35: White Blood Count 10.5, Red Blood Count 2.92L, Hemoglobin 8.9L, Hematocrit 26.7L , Mean Corpuscular Volume 91, Mean Corpuscular Hemoglobin 30.7, Mean Corpuscular Hemoglobin Concent 33.5, Red Cell Distribution Width 12.5, Platelet Count 276, Mean Platelet Volume 7.4, Neutrophils (%) (Auto) , Lymphocytes (%) ( Auto) , Monocytes (%) (Auto) , Eosinophils (%) (Auto) , Basophils (%) (Auto) , Neutrophils % (Manual) [Pending], Lymphocytes % (Manual) [Pending], Platelet Estimate [Pending], Platelet Morphology [Pending], Sodium Level 138, Potassium Level 4.1, Chloride Level 105, Carbon Dioxide Level 23, Anion Gap 10, Blood Urea Nitrogen 12, Creatinine 0.5#L, Estimat Glomerular Filtration Rate > 60, Glucose Level 166H, Lactic Acid Level 0.70, Uric Acid 5.0, Calcium Level 8.5, Phosphorus Level 2.4L, Magnesium Level 1.8, Total Bilirubin 0.5, Direct Bilirubin 0.1, Aspartate Amino Transf (AST/SGOT) 21, Alanine Aminotransferase ( ALT/SGPT) 18, Alkaline Phosphatase 56, Troponin I 0.021, Pro-B-Type Natriuretic Peptide 2221H, Total Protein 6.2L, Albumin 2.1L, Globulin 4.0, Albumin/Globulin Ratio 0.5L, Triglycerides Level 127, Cholesterol Level 71, LDL Cholesterol 40, HDL Cholesterol 15L, Cholesterol/HDL Ratio 4.7H, Thyroid Stimulating Hormone ( TSH) 0.849 Height (Feet): 5 Height (Inches): 10.00 Weight (Pounds): 125 General Appearance: lethargic EENT: normal ENT inspection Neck: supple Cardiovascular: normal rate Respiratory/Chest: decreased breath sounds Abdomen: normal bowel sounds, non tender, soft Extremities: non-tender Louis Mcneil MD Jun 03, 2018 07:24
[2018-06-03] MEDS: Pantoprazole Inj IVP SCH ×2 (08:00→21:15)
[2018-06-03] MEDS: Heparin 5000 units/ml inj SUBQ SCH ×2 (08:02→21:16)
[2018-06-03] MEDS: levETIRAcetam 500mg/5ml Liquid NG SCH ×2 (08:03→21:15)
--- NOTE | 2018-06-03 09:20 | Diagnostic Imaging Report ---
EXAM: XR Chest, 1 View CLINICAL HISTORY: DYSPNEA TECHNIQUE: Frontal view of the chest. COMPARISON: Chest x-ray dated 06/02/18 FINDINGS: Lungs: Persistent subsegmental atelectasis versus infiltrate at the periphery of the right lung base. Pleural space: Unremarkable. The costophrenic angles are sharp. No visible pneumothorax. Heart: Unremarkable. No cardiomegaly. Mediastinum: Unremarkable. Bones/joints: Unremarkable. Tubes, lines and devices: Stable positioning of the right subclavian central venous catheter with the tip in SVC/right atrial junction. EKG leads overlie the thorax. IMPRESSION: No significant interval change compared to the prior exam. Persistent subcentimeter atelectasis versus infiltrate in the periphery of the right lung base.
--- NOTE | 2018-06-03 09:23 | Diagnostic Imaging Report ---
EXAM: XR Abdomen, 1 view CLINICAL HISTORY: PAIN TECHNIQUE: Frontal supine view of the abdomen/pelvis. COMPARISON: No relevant prior studies available. FINDINGS: Intraperitoneal space: No free air. Gastrointestinal tract: Mild diffuse colonic fecal retention, suggesting constipation. Nonspecific mild gaseous distention of small bowel loops, which remain within normal limits in diameter. Organs: Surgical clips in the right upper abdominal quadrant suggest prior cholecystectomy. Renal shadows are obscured by bowel gas. Bones/joints: Mild degenerative changes in the lumbosacral junction and bilateral hip joints. Soft tissues: Radiodense clips also seen in the mid abdomen and left upper quadrant. IMPRESSION: Mild diffuse colonic fecal retention, suggesting constipation, with nonspecific mild gaseous distention of small bowel loops..
--- NOTE | 2018-06-03 12:03 | Consultation ---
History of Present Illness General Date patient seen: Jun 03, 2018 Chief Complaint: Abnormal Labs Reason for Consultation: evaluate recently placed j tube Present Illness HPI The patient is a resident of [facility]. The patient has a history of cerebrovascular accident with resulting hemiparesis. Found to be febrile and admitted to [facility] for care and work up. Septic requiring ICU admission. Altered mental status and initially non verbal upon admission. From records, at [facility] for reversal of PEG and placement of surgical jejunostomy tube. Given history and currently medical status as well as recent surgical history concerns for possible surgical placed j tube as etiology of sepsis. surgery called to evaluate. patient seen, chart reviewed, patient examined. Allergies: Coded Allergies: DIVALPROEX SODIUM (Verified Allergy, Unknown, 06/01/18) PENICILLINS (Unverified Allergy, Unknown, 06/01/18) Uncoded Allergies: PENICILLIN (Allergy, Unknown, 06/01/18) Medication History Scheduled Escitalopram Oxalate* (Lexapro*), 10 MG ORAL DAILY, (Reported) Olanzapine* (Zyprexa*), 10 MG ORAL DAILY, (Reported) Miscellaneous Medications Ferrous Fumarate (Ferrous Fumarate), 324 MG PO, (Reported) Insulin Aspart* (Novolog*), 0 SUBQ, (Reported) Patient History Limited by: medical condition History Provided By: Medical Record, PMD Healthcare decision maker NO Resuscitation status Full Code Advanced Directive on File Past Medical/Surgical History Past Medical/Surgical History: (1) Renal insufficiency (2) Pneumonia (3) Septic shock (4) Diabetes (5) Sepsis (6) UTI (urinary tract infection) (7) Feeding by G-tube (8) ATN (acute tubular necrosis) (9) feeding by Jt Review of Systems All Other Systems: negative except mentioned in HPI Physical Exam General Appearance: no apparent distress Lines, tubes and drains: central line HEENT: mucous membranes moist Neck: normal inspection Respiratory/Chest: no respiratory distress, no accessory muscle use Cardiovascular/Chest: normal peripheral pulses, tachycardia Abdomen: non tender, soft, no organomegaly, no mass, feeding tube, other - midline incision c/d/i Extremities: other Skin Exam: warm/dry Neurologic: responsive Last 24 Hour Vital Signs Date Time Temp Pulse Resp B/P (MAP) Pulse Ox O2 Delivery O2 Flow Rate FiO2 06/03/18 10:15 67 17 100 06/03/18 10:00 62 12 103/66 (78) 100 06/03/18 09:45 76 16 116/59 (78) 100 06/03/18 09:30 91 24 111/63 (79) 99 06/03/18 09:15 73 14 119/68 (85) 98 06/03/18 09:00 84 13 117/60 (79) 98 06/03/18 08:45 72 11 116/60 (78) 98 06/03/18 08:30 74 19 110/51 (70) 100 06/03/18 08:15 90 17 104/53 (70) 99 06/03/18 08:00 Nasal Cannula 3.0 06/03/18 08:00 71 15 105/49 (67) 99 06/03/18 08:00 70 06/03/18 07:45 82 18 106/47 (66) 99 06/03/18 07:30 79 17 111/55 (73) 100 06/03/18 07:15 99.1 90 16 111/55 (73) 100 99.1 06/03/18 07:00 67 15 116/52 (73) 100 06/03/18 06:45 90 23 117/51 (73) 100 06/03/18 06:30 67 23 101/51 (68) 100 06/03/18 06:15 84 17 106/56 (73) 100 06/03/18 06:00 80 16 89/65 (73) 100 06/03/18 05:45 90 14 117/53 (74) 100 06/03/18 05:30 89 16 102/50 (67) 100 06/03/18 05:25 104/50 06/03/18 05:15 83 10 104/50 (68) 100 06/03/18 05:00 89 15 99/56 (70) 99 06/03/18 04:45 74 14 126/38 (67) 100 06/03/18 04:15 88 14 75/42 (53) 100 06/03/18 04:00 98.3 96 16 100/57 (71) 99 98.3 06/03/18 04:00 96 06/03/18 04:00 Room Air 06/03/18 03:45 100 18 97/56 (70) 99 06/03/18 03:30 93 15 110/62 (78) 99 06/03/18 03:15 73 11 105/54 (71) 100 06/03/18 03:00 90 17 105/58 (74) 100 06/03/18 02:30 88 14 91/49 (63) 99 06/03/18 02:15 84 15 113/62 (79) 99 06/03/18 02:00 92 17 108/59 (75) 100 06/03/18 01:45 90 15 101/61 (74) 99 06/03/18 01:30 95 23 95/61 (72) 99 06/03/18 01:15 101 21 109/62 (78) 99 06/03/18 01:00 91 11 110/59 (76) 100 06/03/18 00:45 89 13 107/58 (74) 100 06/03/18 00:30 90 14 107/61 (76) 99 06/03/18 00:15 91 15 99/56 (70) 100 06/03/18 00:00 99 18 103/57 (72) 100 06/03/18 00:00 Room Air 06/03/18 00:00 89 06/02/18 23:45 83 21 108/58 (75) 100 06/02/18 23:30 86 19 107/57 (74) 100 06/02/18 23:15 89 16 98/61 (73) 100 06/02/18 23:00 98.1 94 19 100/55 (70) 100 98.1 06/02/18 22:45 88 16 101/57 (72) 100 06/02/18 22:30 88 15 99/54 (69) 100 06/02/18 22:15 93 16 104/51 (68) 100 06/02/18 22:00 93 15 98/51 (67) 100 06/02/18 21:45 89 17 101/55 (70) 100 06/02/18 21:30 91 13 99/54 (69) 100 06/02/18 21:15 88 16 100/54 (69) 100 06/02/18 21:00 89 15 101/54 (70) 100 06/02/18 20:45 88 18 95/67 (76) 100 06/02/18 20:30 88 15 98/52 (67) 100 06/02/18 20:15 89 13 98/53 (68) 100 06/02/18 20:00 97 14 92/54 (67) 99 06/02/18 20:00 94 06/02/18 20:00 Room Air 06/02/18 19:45 100 13 93/44 (60) 100 06/02/18 19:36 94 13 97/50 (66) 100 06/02/18 19:30 95 14 98/53 (68) 100 06/02/18 19:29 97 20 Nasal Cannula 2.0 28 06/02/18 19:29 99 Nasal Cannula 2.0 28 06/02/18 19:29 Nasal Cannula 2.0 28 06/02/18 19:22 97 18 94/47 (63) 100 06/02/18 19:15 97 15 92/51 (65) 100 06/02/18 19:00 98.9 92 10 98/52 (67) 100 98.9 06/02/18 18:00 99 12 95/66 (76) 99 06/02/18 17:00 98 12 99/68 (78) 99 06/02/18 16:30 95 12 116/60 (78) 99 06/02/18 16:00 93 06/02/18 16:00 99/68 06/02/18 16:00 Room Air 06/02/18 16:00 95 12 114/67 (83) 99 06/02/18 15:00 95 12 106/64 (78) 99 06/02/18 14:30 95 12 112/63 (79) 99 06/02/18 14:00 96 12 122/66 (84) 99 06/02/18 14:00 93 06/02/18 13:30 94 12 113/59 (77) 99 06/02/18 13:00 99 12 107/65 (79) 99 06/02/18 12:30 99 12 95/56 (69) 99 06/02/18 12:00 Room Air 06/02/18 12:00 98 12 111/59 (76) 99 06/02/18 12:00 100 Intake and Output 06/02/18 06/03/18 19:00 07:00 Intake Total 1357.60 ml 1522.89 ml Output Total 2009 ml 1205 ml Balance -652.40 ml 317.89 ml IV Total 1357.60 ml 1462.89 ml Other 60 ml Output Urine Total 2009 ml 1205 ml Laboratory Tests Test 06/03/18 04:00 06/03/18 04:35 06/03/18 08:55 Urine Eosinophils None seen (NONE SEEN) Urine Random Sodium 85 mmol/L (20-110) White Blood Count 10.5 K/UL (4.8-10.8) Red Blood Count 2.92 M/UL (4.70-6.10) L Hemoglobin 8.9 G/DL (14.2-18.0) L Hematocrit 26.7 % (42.0-52.0) L Mean Corpuscular Volume 91 FL (80-99) Mean Corpuscular Hemoglobin 30.7 PG (27.0-31.0) Mean Corpuscular Hemoglobin Concent 33.5 G/DL (32.0-36.0) Red Cell Distribution Width 12.5 % (11.6-14.8) Platelet Count 276 K/UL (150-450) Mean Platelet Volume 7.4 FL (6.5-10.1) Neutrophils (%) (Auto) % (45.0-75.0) Lymphocytes (%) (Auto) % (20.0-45.0) Monocytes (%) (Auto) % (1.0-10.0) Eosinophils (%) (Auto) % (0.0-3.0) Basophils (%) (Auto) % (0.0-2.0) Differential Total Cells Counted 100 Neutrophils % (Manual) 91 % (45-75) H Lymphocytes % (Manual) 3 % (20-45) L Monocytes % (Manual) 5 % (1-10) Eosinophils % (Manual) 0 % (0-3) Basophils % (Manual) 0 % (0-2) Band Neutrophils 1 % (0-8) Platelet Estimate Adequate Platelet Morphology Normal Hypochromasia 1+ Sodium Level 138 MMOL/L (136-145) Potassium Level 4.1 MMOL/L (3.5-5.1) Chloride Level 105 MMOL/L (98-107) Carbon Dioxide Level 23 MMOL/L (21-32) Anion Gap 10 mmol/L (5-15) Blood Urea Nitrogen 12 mg/dL (7-18) Creatinine 0.5 MG/DL (0.55-1.30) #L Estimat Glomerular Filtration Rate > 60 mL/min (>60) Glucose Level 166 MG/DL (74-106) H Lactic Acid Level 0.70 mmol/L (0.4-2.0) Uric Acid 5.0 MG/DL (2.6-7.2) Calcium Level 8.5 MG/DL (8.5-10.1) Phosphorus Level 2.4 MG/DL (2.5-4.9) L Magnesium Level 1.8 MG/DL (1.8-2.4) Total Bilirubin 0.5 MG/DL (0.2-1.0) Direct Bilirubin 0.1 MG/DL (0.0-0.3) Aspartate Amino Transf (AST/SGOT) 21 U/L (15-37) Alanine Aminotransferase (ALT/SGPT) 18 U/L (12-78) Alkaline Phosphatase 56 U/L (46-116) Troponin I 0.021 ng/mL (0.000-0.056) Pro-B-Type Natriuretic Peptide 2221 pg/mL (0-125) H Total Protein 6.2 G/DL (6.4-8.2) L Albumin 2.1 G/DL (3.4-5.0) L Globulin 4.0 g/dL Albumin/Globulin Ratio 0.5 (1.0-2.7) L Triglycerides Level 127 MG/DL (30-150) Cholesterol Level 71 MG/DL (< 200) LDL Cholesterol 40 mg/dL (<100) HDL Cholesterol 15 MG/DL (40-60) L Cholesterol/HDL Ratio 4.7 (3.3-4.4) H Thyroid Stimulating Hormone (TSH) 0.849 uiU/mL (0.358-3.740) Arterial Blood pH 7.400 (7.350-7.450) Arterial Blood Partial Pressure CO2 32.3 mmHg (35.0-45.0) L Arterial Blood Partial Pressure O2 97.4 mmHg (75.0-100.0) Arterial Blood HCO3 19.7 mmol/L (22.0-26.0) L Arterial Blood Oxygen Saturation 96.9 % (92.0-98.0) Arterial Blood Base Excess -4.3 Nickolas Test Positive Height (Feet): 5 Height (Inches): 10.00 Weight (Pounds): 125 Medications Current Medications Medications (Trade) Dose Ordered Sig/Cristofer Route PRN Reason Start Time Stop Time Status Last Admin Dose Admin Acetaminophen (Tylenol) 650 mg Q4H PRN ORAL fever 06/02/18 09:45 07/02/18 09:44 Albuterol/ Ipratropium (Albuterol/ Ipratropium) 3 ml Q4H PRN HHN Shortness of Breath 06/02/18 09:45 06/07/18 09:44 Chlorhexidine Gluconate (Aileen-Hex 2%) 1 applic DAILY@2000 TOPIC 06/02/18 20:00 07/02/18 19:59 06/02/18 20:03 Dextrose (Dextrose 50%) 25 ml STAT PRN IV Hypoglycemia 06/01/18 23:45 07/01/18 23:44 Dextrose (Dextrose 50%) 50 ml STAT PRN IV Hypoglycemia 06/01/18 23:45 07/01/18 23:44 Ertapenem 0.5 gm/ Sodium Chloride 55 ml @ 110 mls/hr Q24H IV 06/02/18 12:00 06/07/18 11:59 06/02/18 11:52 Heparin Sodium (Porcine) (Heparin 5000 units/ml) 5,000 units EVERY 12 HOURS SUBQ 06/02/18 09:00 07/02/18 08:59 06/03/18 08:02 Hydrocortisone (Solu-CORTEF) 100 mg EVERY 8 HOURS IV 06/02/18 14:00 07/02/18 13:59 06/03/18 05:25 Insulin Aspart (NovoLOG) Q6HR SUBQ 06/02/18 00:00 07/02/18 00:00 06/03/18 05:28 Levetiracetam (Keppra) 500 mg Q12HR NG 06/02/18 00:06 07/02/18 00:05 06/03/18 08:03 Morphine Sulfate (Morphine Sulfate) 2 mg Q4H PRN IVP Severe Pain (Pain Scale 7-10) 06/02/18 09:45 06/09/18 09:44 Norepinephrine Bitartrate 4 mg/ Dextrose 254 ml @ 0 mls/hr Q24H IV 06/02/18 09:45 07/02/18 09:44 06/03/18 05:25 Ondansetron HCl (Zofran) 4 mg Q6H PRN IVP Nausea & Vomiting 06/02/18 09:45 07/02/18 09:44 Pantoprazole (Protonix) 40 mg EVERY 12 HOURS IVP 06/02/18 21:00 07/02/18 20:59 06/03/18 08:00 Polyethylene Glycol (Miralax) 17 gm DAILYPRN PRN ORAL Constipation 06/02/18 09:45 07/02/18 09:44 Sodium Chloride 1,000 ml @ 100 mls/hr Q10H IVLG 06/02/18 09:35 07/02/18 09:34 06/03/18 01:47 Vancomycin HCl (Vanco rx to dose) 1 ea DAILY PRN MISC . 06/02/18 10:15 07/02/18 10:14 Assessment/Plan Problem List: (1) Sepsis Assessment & Plan: Patient known to me. Seen yesterday for urgent central line placement given sepsis and requirements during work up noted recent surgical placed j tube. also urosepsis. today patient is more awake and responsive. he is unsure of what happened but is able to follow commands. looks much better today as was completely unresponsive yesterday. records reviewed. abdomen examined. midline wound c/d/i with surgical milind. no signs of infection or complication. j tube is a red rubber catheter and patent/functional. KUB reviewed. -unlikely etiology of sepsis recent surgery and feeding tube. likely urosepsis -okay to use feeding tube -will potentially remove surgical milind during hospitalization -cont current care and management thank you ICD Codes: A41.9 - Sepsis, unspecified organism SNOMED: 78583399, [id number] Shiv Horvath Jun 03, 2018 12:03
[2018-06-03] MEDS: Ertapenem 0.5 GM in NS 55 ML IV SCH (12:09)
--- NOTE | 2018-06-03 12:22 | Pulmonolgy Critical Care Note ---
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 - Objective Last 24 Hour Vital Signs Date Time Temp Pulse Resp B/P (MAP) Pulse Ox O2 Delivery O2 Flow Rate FiO2 06/03/18 10:15 67 17 100 06/03/18 10:00 62 12 103/66 (78) 100 06/03/18 09:45 76 16 116/59 (78) 100 06/03/18 09:30 91 24 111/63 (79) 99 06/03/18 09:15 73 14 119/68 (85) 98 06/03/18 09:00 84 13 117/60 (79) 98 06/03/18 08:45 72 11 116/60 (78) 98 06/03/18 08:30 74 19 110/51 (70) 100 06/03/18 08:15 90 17 104/53 (70) 99 06/03/18 08:00 Nasal Cannula 3.0 06/03/18 08:00 71 15 105/49 (67) 99 06/03/18 08:00 70 06/03/18 07:45 82 18 106/47 (66) 99 06/03/18 07:30 79 17 111/55 (73) 100 06/03/18 07:15 99.1 90 16 111/55 (73) 100 99.1 06/03/18 07:00 67 15 116/52 (73) 100 06/03/18 06:45 90 23 117/51 (73) 100 06/03/18 06:30 67 23 101/51 (68) 100 06/03/18 06:15 84 17 106/56 (73) 100 06/03/18 06:00 80 16 89/65 (73) 100 06/03/18 05:45 90 14 117/53 (74) 100 06/03/18 05:30 89 16 102/50 (67) 100 06/03/18 05:25 104/50 06/03/18 05:15 83 10 104/50 (68) 100 06/03/18 05:00 89 15 99/56 (70) 99 06/03/18 04:45 74 14 126/38 (67) 100 06/03/18 04:15 88 14 75/42 (53) 100 06/03/18 04:00 98.3 96 16 100/57 (71) 99 98.3 06/03/18 04:00 96 06/03/18 04:00 Room Air 06/03/18 03:45 100 18 97/56 (70) 99 06/03/18 03:30 93 15 110/62 (78) 99 06/03/18 03:15 73 11 105/54 (71) 100 06/03/18 03:00 90 17 105/58 (74) 100 06/03/18 02:30 88 14 91/49 (63) 99 06/03/18 02:15 84 15 113/62 (79) 99 06/03/18 02:00 92 17 108/59 (75) 100 06/03/18 01:45 90 15 101/61 (74) 99 06/03/18 01:30 95 23 95/61 (72) 99 06/03/18 01:15 101 21 109/62 (78) 99 06/03/18 01:00 91 11 110/59 (76) 100 06/03/18 00:45 89 13 107/58 (74) 100 06/03/18 00:30 90 14 107/61 (76) 99 06/03/18 00:15 91 15 99/56 (70) 100 06/03/18 00:00 99 18 103/57 (72) 100 06/03/18 00:00 Room Air 06/03/18 00:00 89 06/02/18 23:45 83 21 108/58 (75) 100 06/02/18 23:30 86 19 107/57 (74) 100 06/02/18 23:15 89 16 98/61 (73) 100 06/02/18 23:00 98.1 94 19 100/55 (70) 100 98.1 06/02/18 22:45 88 16 101/57 (72) 100 18 22:30 88 15 99/54 (69) 100 18 22:15 93 16 104/51 (68) 100 18 22:00 93 15 98/51 (67) 100 18 21:45 89 17 101/55 (70) 100 18 21:30 91 13 99/54 (69) 100 18 21:15 88 16 100/54 (69) 100 18 21:00 89 15 101/54 (70) 100 18 20:45 88 18 95/67 (76) 100 18 20:30 88 15 98/52 (67) 100 06/02/18 20:15 89 13 98/53 (68) 100 06/02/18 20:00 97 14 92/54 (67) 99 06/02/18 20:00 94 06/02/18 20:00 Room Air 06/02/18 19:45 100 13 93/44 (60) 100 06/02/18 19:36 94 13 97/50 (66) 100 06/02/18 19:30 95 14 98/53 (68) 100 06/02/18 19:29 97 20 Nasal Cannula 2.0 28 06/02/18 19:29 99 Nasal Cannula 2.0 28 06/02/18 19:29 Nasal Cannula 2.0 28 06/02/18 19:22 97 18 94/47 (63) 100 06/02/18 19:15 97 15 92/51 (65) 100 06/02/18 19:00 98.9 92 10 98/52 (67) 100 98.9 18 18:00 99 12 95/66 (76) 99 18 17:00 98 12 99/68 (78) 99 06/02/18 16:30 95 12 116/60 (78) 99 06/02/18 16:00 93 18 16:00 99/68 06/02/18 16:00 Room Air 06/02/18 16:00 95 12 114/67 (83) 99 06/02/18 15:00 95 12 106/64 (78) 99 06/02/18 14:30 95 12 112/63 (79) 99 06/02/18 14:00 96 12 122/66 (84) 99 06/02/18 14:00 93 06/02/18 13:30 94 12 113/59 (77) 99 06/02/18 13:00 99 12 107/65 (79) 99 06/02/18 12:30 99 12 95/56 (69) 99 Status: awake Condition: critical HEENT: atraumatic Lungs: clear Heart: HR/BP stable, regular Abdomen: soft, non-tender Extremities: no C/C/E, edema Micro: Microbiology Date/Time Source Procedure Growth Status 06/01/18 18:58 Blood Blood Culture - Preliminary NO GROWTH AFTER 24 HOURS Resulted 06/01/18 18:58 Blood Blood Culture - Preliminary NO GROWTH AFTER 24 HOURS Resulted 06/01/18 18:50 Urine,Clean Catch Urine Culture - Final Escherichia Coli Complete Accucheck: 190 Critical Care - Subjective ROS Limited/Unobtainable: Yes Condition: critical FI02: 28 Sputum Amount: None Tube Feeding Amount: 10 I&O: Intake and Output 06/02/18 06/03/18 19:00 07:00 Intake Total 1357.60 ml 1522.89 ml Output Total 2010 ml 1205 ml Balance -652.40 ml 317.89 ml IV Total 1357.60 ml 1462.89 ml Other 60 ml Output Urine Total 2010 ml 1205 ml Labs: Laboratory Tests Test 06/03/18 04:00 06/03/18 04:35 06/03/18 08:55 Urine Eosinophils None seen (NONE SEEN) Urine Random Sodium 85 mmol/L (20-110) White Blood Count 10.5 K/UL (4.8-10.8) Red Blood Count 2.92 M/UL (4.70-6.10) L Hemoglobin 8.9 G/DL (14.2-18.0) L Hematocrit 26.7 % (42.0-52.0) L Mean Corpuscular Volume 91 FL (80-99) Mean Corpuscular Hemoglobin 30.7 PG (27.0-31.0) Mean Corpuscular Hemoglobin Concent 33.5 G/DL (32.0-36.0) Red Cell Distribution Width 12.5 % (11.6-14.8) Platelet Count 276 K/UL (150-450) Mean Platelet Volume 7.4 FL (6.5-10.1) Neutrophils (%) (Auto) % (45.0-75.0) Lymphocytes (%) (Auto) % (20.0-45.0) Monocytes (%) (Auto) % (1.0-10.0) Eosinophils (%) (Auto) % (0.0-3.0) Basophils (%) (Auto) % (0.0-2.0) Differential Total Cells Counted 100 Neutrophils % (Manual) 91 % (45-75) H Lymphocytes % (Manual) 3 % (20-45) L Monocytes % (Manual) 5 % (1-10) Eosinophils % (Manual) 0 % (0-3) Basophils % (Manual) 0 % (0-2) Band Neutrophils 1 % (0-8) Platelet Estimate Adequate Platelet Morphology Normal Hypochromasia 1+ Sodium Level 138 MMOL/L (136-145) Potassium Level 4.1 MMOL/L (3.5-5.1) Chloride Level 105 MMOL/L (98-107) Carbon Dioxide Level 23 MMOL/L (21-32) Anion Gap 10 mmol/L (5-15) Blood Urea Nitrogen 12 mg/dL (7-18) Creatinine 0.5 MG/DL (0.55-1.30) #L Estimat Glomerular Filtration Rate > 60 mL/min (>60) Glucose Level 166 MG/DL (74-106) H Lactic Acid Level 0.70 mmol/L (0.4-2.0) Uric Acid 5.0 MG/DL (2.6-7.2) Calcium Level 8.5 MG/DL (8.5-10.1) Phosphorus Level 2.4 MG/DL (2.5-4.9) L Magnesium Level 1.8 MG/DL (1.8-2.4) Total Bilirubin 0.5 MG/DL (0.2-1.0) Direct Bilirubin 0.1 MG/DL (0.0-0.3) Aspartate Amino Transf (AST/SGOT) 21 U/L (15-37) Alanine Aminotransferase (ALT/SGPT) 18 U/L (12-78) Alkaline Phosphatase 56 U/L (46-116) Troponin I 0.021 ng/mL (0.000-0.056) Pro-B-Type Natriuretic Peptide 2221 pg/mL (0-125) H Total Protein 6.2 G/DL (6.4-8.2) L Albumin 2.1 G/DL (3.4-5.0) L Globulin 4.0 g/dL Albumin/Globulin Ratio 0.5 (1.0-2.7) L Triglycerides Level 127 MG/DL (30-150) Cholesterol Level 71 MG/DL (< 200) LDL Cholesterol 40 mg/dL (<100) HDL Cholesterol 15 MG/DL (40-60) L Cholesterol/HDL Ratio 4.7 (3.3-4.4) H Thyroid Stimulating Hormone (TSH) 0.849 uiU/mL (0.358-3.740) Arterial Blood pH 7.400 (7.350-7.450) Arterial Blood Partial Pressure CO2 32.3 mmHg (35.0-45.0) L Arterial Blood Partial Pressure O2 97.4 mmHg (75.0-100.0) Arterial Blood HCO3 19.7 mmol/L (22.0-26.0) L Arterial Blood Oxygen Saturation 96.9 % (92.0-98.0) Arterial Blood Base Excess -4.3 Nickolas Test Positive Dony Sanchez MD Jun 03, 2018 12:22
--- NOTE | 2018-06-03 15:53 | Cardiology Report ---
APPROVED REPORT EKG Measurement Heart [id number] OR [id number] Sinus tachycardia Otherwise normal ECG
--- NOTE | 2018-06-03 16:13 | Nephrology Progress Note ---
Assessment/Plan Problem List: (1) Septic shock (2) ATN (acute tubular necrosis) (3) UTI (urinary tract infection) (4) feeding by Jt (5) Hypoalbuminemia Assessment Acute renal failure- Likely urinary retention Hypotension, on Pressors Sever Anemia UTI , Pneumonia, Amputated left leg Plan Transfuse pressors, taper Hydrate ferreira Avoid Nephrotoxics monitor renal parameters trial hydrocortisone Midodrine Albumin bolus as needed Subjective ROS Limited/Unobtainable: No Constitutional: Reports: malaise Objective Objective Last 24 Hour Vital Signs Date Time Temp Pulse Resp B/P (MAP) Pulse Ox O2 Delivery O2 Flow Rate FiO2 06/03/18 14:00 80 13 89/54 (66) 99 06/03/18 12:45 92 15 85/56 (66) 99 06/03/18 12:30 79 17 102/57 (72) 100 06/03/18 12:15 86 12 96/59 (71) 99 06/03/18 12:00 87 14 97/57 (70) 99 06/03/18 12:00 84 06/03/18 12:00 97/57 06/03/18 12:00 Nasal Cannula 2.0 06/03/18 11:45 96 17 106/57 (73) 99 06/03/18 11:30 88 16 109/67 (81) 100 06/03/18 11:15 72 18 104/56 (72) 100 06/03/18 11:00 62 14 111/49 (69) 100 06/03/18 11:00 111/49 06/03/18 10:45 75 16 113/65 (81) 99 06/03/18 10:30 98.9 64 11 113/54 (73) 100 98.9 06/03/18 10:15 67 17 100 06/03/18 10:00 62 12 103/66 (78) 100 06/03/18 10:00 103/66 06/03/18 09:45 76 16 116/59 (78) 100 06/03/18 09:30 91 24 111/63 (79) 99 06/03/18 09:15 73 14 119/68 (85) 98 06/03/18 09:00 117/60 06/03/18 09:00 84 13 117/60 (79) 98 06/03/18 08:45 72 11 116/60 (78) 98 06/03/18 08:30 74 19 110/51 (70) 100 06/03/18 08:15 90 17 104/53 (70) 99 06/03/18 08:00 Nasal Cannula 3.0 06/03/18 08:00 71 15 105/49 (67) 99 06/03/18 08:00 105/49 06/03/18 08:00 70 06/03/18 07:45 82 18 106/47 (66) 99 06/03/18 07:30 79 17 111/55 (73) 100 06/03/18 07:15 99.1 90 16 111/55 (73) 100 99.1 06/03/18 07:00 67 15 116/52 (73) 100 06/03/18 06:45 90 23 117/51 (73) 100 06/03/18 06:30 67 23 101/51 (68) 100 06/03/18 06:15 84 17 106/56 (73) 100 06/03/18 06:00 80 16 89/65 (73) 100 06/03/18 05:45 90 14 117/53 (74) 100 06/03/18 05:30 89 16 102/50 (67) 100 06/03/18 05:25 104/50 06/03/18 05:15 83 10 104/50 (68) 100 06/03/18 05:00 89 15 99/56 (70) 99 06/03/18 04:45 74 14 126/38 (67) 100 06/03/18 04:15 88 14 75/42 (53) 100 06/03/18 04:00 98.3 96 16 100/57 (71) 99 98.3 06/03/18 04:00 96 06/03/18 04:00 Room Air 06/03/18 03:45 100 18 97/56 (70) 99 06/03/18 03:30 93 15 110/62 (78) 99 06/03/18 03:15 73 11 105/54 (71) 100 06/03/18 03:00 90 17 105/58 (74) 100 06/03/18 02:30 88 14 91/49 (63) 99 06/03/18 02:15 84 15 113/62 (79) 99 06/03/18 02:00 92 17 108/59 (75) 100 06/03/18 01:45 90 15 101/61 (74) 99 06/03/18 01:30 95 23 95/61 (72) 99 06/03/18 01:15 101 21 109/62 (78) 99 06/03/18 01:00 91 11 110/59 (76) 100 06/03/18 00:45 89 13 107/58 (74) 100 06/03/18 00:30 90 14 107/61 (76) 99 06/03/18 00:15 91 15 99/56 (70) 100 06/03/18 00:00 99 18 103/57 (72) 100 06/03/18 00:00 Room Air 06/03/18 00:00 89 06/02/18 23:45 83 21 108/58 (75) 100 06/02/18 23:30 86 19 107/57 (74) 100 06/02/18 23:15 89 16 98/61 (73) 100 06/02/18 23:00 98.1 94 19 100/55 (70) 100 98.1 06/02/18 22:45 88 16 101/57 (72) 100 06/02/18 22:30 88 15 99/54 (69) 100 06/02/18 22:15 93 16 104/51 (68) 100 06/02/18 22:00 93 15 98/51 (67) 100 06/02/18 21:45 89 17 101/55 (70) 100 06/02/18 21:30 91 13 99/54 (69) 100 06/02/18 21:15 88 16 100/54 (69) 100 06/02/18 21:00 89 15 101/54 (70) 100 06/02/18 20:45 88 18 95/67 (76) 100 06/02/18 20:30 88 15 98/52 (67) 100 06/02/18 20:15 89 13 98/53 (68) 100 06/02/18 20:00 97 14 92/54 (67) 99 06/02/18 20:00 94 06/02/18 20:00 Room Air 06/02/18 19:45 100 13 93/44 (60) 100 06/02/18 19:36 94 13 97/50 (66) 100 9/15/18 19:30 95 14 98/53 (68) 100 06/02/18 19:29 97 20 Nasal Cannula 2.0 28 06/02/18 19:29 99 Nasal Cannula 2.0 28 06/02/18 19:29 Nasal Cannula 2.0 28 06/02/18 19:22 97 18 94/47 (63) 100 06/02/18 19:15 97 15 92/51 (65) 100 06/02/18 19:00 98.9 92 10 98/52 (67) 100 98.9 06/02/18 18:00 99 12 95/66 (76) 99 06/02/18 17:00 98 12 99/68 (78) 99 06/02/18 16:30 95 12 116/60 (78) 99 Intake and Output 06/02/18 06/03/18 19:00 07:00 Intake Total 1357.60 ml 1522.89 ml Output Total 2010 ml 1205 ml Balance -652.40 ml 317.89 ml IV Total 1357.60 ml 1462.89 ml Other 60 ml Output Urine Total 2010 ml 1205 ml Laboratory Tests 06/03/18 04:00: Urine Eosinophils None seen, Urine Random Sodium 85 06/03/18 04:35: White Blood Count 10.5, Red Blood Count 2.92L, Hemoglobin 8.9L, Hematocrit 26.7L , Mean Corpuscular Volume 91, Mean Corpuscular Hemoglobin 30.7, Mean Corpuscular Hemoglobin Concent 33.5, Red Cell Distribution Width 12.5, Platelet Count 276, Mean Platelet Volume 7.4, Neutrophils (%) (Auto) , Lymphocytes (%) ( Auto) , Monocytes (%) (Auto) , Eosinophils (%) (Auto) , Basophils (%) (Auto) , Differential Total Cells Counted 100, Neutrophils % (Manual) 91H, Lymphocytes % (Manual) 3L, Monocytes % (Manual) 5, Eosinophils % (Manual) 0, Basophils % ( Manual) 0, Band Neutrophils 1, Platelet Estimate Adequate, Platelet Morphology Normal, Hypochromasia 1+, Sodium Level 138, Potassium Level 4.1, Chloride Level 105, Carbon Dioxide Level 23, Anion Gap 10, Blood Urea Nitrogen 12, Creatinine 0.5#L, Estimat Glomerular Filtration Rate > 60, Glucose Level 166H, Lactic Acid Level 0.70, Uric Acid 5.0, Calcium Level 8.5, Phosphorus Level 2.4L, Magnesium Level 1.8, Total Bilirubin 0.5, Direct Bilirubin 0.1, Aspartate Amino Transf ( AST/SGOT) 21, Alanine Aminotransferase (ALT/SGPT) 18, Alkaline Phosphatase 56, Troponin I 0.021, Pro-B-Type Natriuretic Peptide 2221H, Total Protein 6.2L, Albumin 2.1L, Globulin 4.0, Albumin/Globulin Ratio 0.5L, Triglycerides Level 127 , Cholesterol Level 71, LDL Cholesterol 40, HDL Cholesterol 15L, Cholesterol/ HDL Ratio 4.7H, Thyroid Stimulating Hormone (TSH) 0.849 06/03/18 08:55: Arterial Blood pH 7.400, Arterial Blood Partial Pressure CO2 32.3L, Arterial Blood Partial Pressure O2 97.4, Arterial Blood HCO3 19.7L, Arterial Blood Oxygen Saturation 96.9, Arterial Blood Base Excess -4.3, Nickolas Test Positive Height (Feet): 5 Height (Inches): 10.00 Weight (Pounds): 125 General Appearance: no apparent distress Cardiovascular: normal rate Respiratory/Chest: decreased breath sounds Abdomen: soft, distended, other - JT + Objective no other change Jose Menon MD Jun 03, 2018 16:13
--- NOTE | 2018-06-03 16:22 | Internal Med Progress Note ---
Subjective Date of Service: Jun 03, 2018 Physician Name Manjinder Marley Attending Physician Ean Joyce MD Current Medications Medications (Trade) Dose Ordered Sig/Cristofer Route PRN Reason Start Time Stop Time Status Last Admin Dose Admin Acetaminophen (Tylenol) 650 mg Q4H PRN ORAL fever 06/02/18 09:45 07/02/18 09:44 Albumin Human 500 ml @ 0 mls/hr Q0M ONCE IV 06/03/18 17:00 06/03/18 17:01 Albuterol/ Ipratropium (Albuterol/ Ipratropium) 3 ml Q4H PRN HHN Shortness of Breath 06/02/18 09:45 06/07/18 09:44 Chlorhexidine Gluconate (Aileen-Hex 2%) 1 applic DAILY@2000 TOPIC 06/02/18 20:00 07/02/18 19:59 06/02/18 20:03 Dextrose (Dextrose 50%) 25 ml STAT PRN IV Hypoglycemia 06/01/18 23:45 07/01/18 23:44 Dextrose (Dextrose 50%) 50 ml STAT PRN IV Hypoglycemia 06/01/18 23:45 07/01/18 23:44 Dextrose/Sodium Chloride 1,000 ml @ 50 mls/hr Q20H IV 06/03/18 17:00 07/03/18 16:59 Ertapenem 0.5 gm/ Sodium Chloride 55 ml @ 110 mls/hr Q24H IV 06/02/18 12:00 06/07/18 11:59 06/03/18 12:09 Heparin Sodium (Porcine) (Heparin 5000 units/ml) 5,000 units EVERY 12 HOURS SUBQ 06/02/18 09:00 07/02/18 08:59 06/03/18 08:02 Hydrocortisone (Solu-CORTEF) 100 mg EVERY 8 HOURS IV 06/02/18 14:00 07/02/18 13:59 06/03/18 14:49 Insulin Aspart (NovoLOG) Q6HR SUBQ 06/02/18 00:00 07/02/18 00:00 06/03/18 12:10 Levetiracetam (Keppra) 500 mg Q12HR NG 06/02/18 00:06 07/02/18 00:05 06/03/18 08:03 Midodrine (Pro-Amatine) 10 mg THREE TIMES A DAY ORAL 06/03/18 18:00 07/03/18 17:59 Norepinephrine Bitartrate 4 mg/ Dextrose 254 ml @ 0 mls/hr Q24H IV 06/02/18 09:45 07/02/18 09:44 06/03/18 05:25 Ondansetron HCl (Zofran) 4 mg Q6H PRN IVP Nausea & Vomiting 06/02/18 09:45 07/02/18 09:44 Pantoprazole (Protonix) 40 mg EVERY 12 HOURS IVP 06/02/18 21:00 07/02/18 20:59 06/03/18 08:00 Polyethylene Glycol (Miralax) 17 gm DAILYPRN PRN ORAL Constipation 06/02/18 09:45 07/02/18 09:44 Vancomycin HCl (Vanco rx to dose) 1 ea DAILY PRN MISC . 06/02/18 10:15 07/02/18 10:14 Allergies: Coded Allergies: DIVALPROEX SODIUM (Verified Allergy, Unknown, 06/01/18) PENICILLINS (Unverified Allergy, Unknown, 06/01/18) Uncoded Allergies: PENICILLIN (Allergy, Unknown, 06/01/18) ROS Limited/Unobtainable: Yes Subjective 59 YO M admitted with Fever and gen weakness. Now UTI and sepsis. Continues on levophed. Cover for Int Med-Dr Joyce. ICU Objective Last Vital Signs Date Time Temp Pulse Resp B/P (MAP) Pulse Ox O2 Delivery O2 Flow Rate FiO2 06/03/18 14:00 80 13 89/54 (66) 99 06/03/18 12:00 Nasal Cannula 2.0 06/03/18 10:30 98.9 98.9 06/02/18 19:29 28 Laboratory Tests Test 06/03/18 04:00 06/03/18 04:35 06/03/18 08:55 Urine Eosinophils None seen (NONE SEEN) Urine Random Sodium 85 mmol/L (20-110) White Blood Count 10.5 K/UL (4.8-10.8) Red Blood Count 2.92 M/UL (4.70-6.10) L Hemoglobin 8.9 G/DL (14.2-18.0) L Hematocrit 26.7 % (42.0-52.0) L Mean Corpuscular Volume 91 FL (80-99) Mean Corpuscular Hemoglobin 30.7 PG (27.0-31.0) Mean Corpuscular Hemoglobin Concent 33.5 G/DL (32.0-36.0) Red Cell Distribution Width 12.5 % (11.6-14.8) Platelet Count 276 K/UL (150-450) Mean Platelet Volume 7.4 FL (6.5-10.1) Neutrophils (%) (Auto) % (45.0-75.0) Lymphocytes (%) (Auto) % (20.0-45.0) Monocytes (%) (Auto) % (1.0-10.0) Eosinophils (%) (Auto) % (0.0-3.0) Basophils (%) (Auto) % (0.0-2.0) Differential Total Cells Counted 100 Neutrophils % (Manual) 91 % (45-75) H Lymphocytes % (Manual) 3 % (20-45) L Monocytes % (Manual) 5 % (1-10) Eosinophils % (Manual) 0 % (0-3) Basophils % (Manual) 0 % (0-2) Band Neutrophils 1 % (0-8) Platelet Estimate Adequate Platelet Morphology Normal Hypochromasia 1+ Sodium Level 138 MMOL/L (136-145) Potassium Level 4.1 MMOL/L (3.5-5.1) Chloride Level 105 MMOL/L (98-107) Carbon Dioxide Level 23 MMOL/L (21-32) Anion Gap 10 mmol/L (5-15) Blood Urea Nitrogen 12 mg/dL (7-18) Creatinine 0.5 MG/DL (0.55-1.30) #L Estimat Glomerular Filtration Rate > 60 mL/min (>60) Glucose Level 166 MG/DL (74-106) H Lactic Acid Level 0.70 mmol/L (0.4-2.0) Uric Acid 5.0 MG/DL (2.6-7.2) Calcium Level 8.5 MG/DL (8.5-10.1) Phosphorus Level 2.4 MG/DL (2.5-4.9) L Magnesium Level 1.8 MG/DL (1.8-2.4) Total Bilirubin 0.5 MG/DL (0.2-1.0) Direct Bilirubin 0.1 MG/DL (0.0-0.3) Aspartate Amino Transf (AST/SGOT) 21 U/L (15-37) Alanine Aminotransferase (ALT/SGPT) 18 U/L (12-78) Alkaline Phosphatase 56 U/L (46-116) Troponin I 0.021 ng/mL (0.000-0.056) Pro-B-Type Natriuretic Peptide 2221 pg/mL (0-125) H Total Protein 6.2 G/DL (6.4-8.2) L Albumin 2.1 G/DL (3.4-5.0) L Globulin 4.0 g/dL Albumin/Globulin Ratio 0.5 (1.0-2.7) L Triglycerides Level 127 MG/DL (30-150) Cholesterol Level 71 MG/DL (< 200) LDL Cholesterol 40 mg/dL (<100) HDL Cholesterol 15 MG/DL (40-60) L Cholesterol/HDL Ratio 4.7 (3.3-4.4) H Thyroid Stimulating Hormone (TSH) 0.849 uiU/mL (0.358-3.740) Arterial Blood pH 7.400 (7.350-7.450) Arterial Blood Partial Pressure CO2 32.3 mmHg (35.0-45.0) L Arterial Blood Partial Pressure O2 97.4 mmHg (75.0-100.0) Arterial Blood HCO3 19.7 mmol/L (22.0-26.0) L Arterial Blood Oxygen Saturation 96.9 % (92.0-98.0) Arterial Blood Base Excess -4.3 Nickolas Test Positive Microbiology Date/Time Source Procedure Growth Status 06/01/18 18:58 Blood Blood Culture - Preliminary NO GROWTH AFTER 24 HOURS Resulted 06/01/18 18:58 Blood Blood Culture - Preliminary NO GROWTH AFTER 24 HOURS Resulted 06/01/18 18:50 Urine,Clean Catch Urine Culture - Final Escherichia Coli Complete Intake and Output 06/02/18 06/03/18 19:00 07:00 Intake Total 1357.60 ml 1522.89 ml Output Total 2010 ml 1205 ml Balance -652.40 ml 317.89 ml IV Total 1357.60 ml 1462.89 ml Other 60 ml Output Urine Total 2010 ml 1205 ml Objective HYSICAL EXAMINATION: GENERAL: The patient is thin appearing, cachectic white male, in no apparent distress. VITAL SIGNS: Temperature 98.3 degrees, respirations 13 to 23, pulse 105 to 108, and blood pressure 85 to 93 over 43 to 54. HEENT: Eyes, pupils equal and responsive to light and accommodation. Extraocular movements intact. NECK: Supple without lymphadenopathy. CHEST: Nasal canula; Lungs are clear to auscultation bilaterally without wheezes or rales. CARDIOVASCULAR: Tachycardic, regular rate. S1 and S2 are normal without murmurs, rubs, or gallops. ABDOMEN: Soft, nondistended with positive bowel sounds. No evidence of hepatosplenomegaly. Currently, no rebound or guarding noted. EXTREMITIES: Negative for clubbing, cyanosis, or edema. RECTAL: Refused. GENITAL: Refused. NEUROLOGIC: Cranial nerves II through XII are grossly intact without focal deficits. Motor strength is 5/5 bilaterally. Assessment/Plan Problem List: (1) HTN (hypertension) Assessment & Plan: current hypotensive (2) Alzheimer's dementia (3) Fever (4) Altered mental status (5) UTI (urinary tract infection) Assessment & Plan: E. Coli-continue ceftriaxone. See ID note (6) Septic shock Assessment & Plan: Continue levophed. Status: not improved Manjinder Marley MD Jun 03, 2018 16:22
[2018-06-03] MEDS ORDERED: D5NS 1,000 ML IV SCH (17:00)
[2018-06-03] MEDS: Midodrine 10mg tab ORAL SCH (17:14)
[2018-06-03] MEDS: Dyna-Hex 2% Top Sol 2oz TOPIC SCH (20:00)
[2018-06-04] VITALS (16 sets, daily range): BP systolic 92–117; BP diastolic 51–69
[2018-06-04] MEDS: NovoLOG Insulin Flexpen SUBQ SCH ×5 (05:24→23:25)
[2018-06-04] MEDS: Hydrocortisone 100mg Inj IV SCH (05:24)
[2018-06-04 05:53] LABS: INR 1.1 (0.9-1.1)
[2018-06-04 05:58] LABS: BASOPHILS % (AUTO) 0.2 % (0.0-2.0); HEMATOCRIT 27.4 % (42.0-52.0); HEMOGLOBIN 9.1 G/DL (14.2-18.0); LYMPHOCYTES % (AUTO) 11.1 % (20.0-45.0); MEAN CORPUSCULAR VOLUME 92 FL (80-99); MONOCYTES % (AUTO) 6.1 % (1.0-10.0); NEUTROPHILS % (AUTO) 82.6 % (45.0-75.0); PLATELET COUNT 315 K/UL (150-450); RED CELL DISTRIBUTION WIDTH 12.3 % (11.6-14.8); WHITE BLOOD COUNT 12.5 K/UL (4.8-10.8)
[2018-06-04 06:06] LABS: ALANINE AMINOTRANSFERASE 33 U/L (12-78); ALBUMIN 2.1 G/DL (3.4-5.0); ALBUMIN/GLOBULIN RATIO 0.6 (1.0-2.7); ALKALINE PHOSPHATASE 70 U/L (46-116); AMYLASE 20 U/L (25-115); ANION GAP 7 mmol/L (5-15); ASPARTATE AMINO TRANSFERASE 26 U/L (15-37); BILIRUBIN,TOTAL 0.3 MG/DL (0.2-1.0); BLOOD UREA NITROGEN 16 mg/dL (7-18); CALCIUM 8.8 MG/DL (8.5-10.1); CARBON DIOXIDE 27 MMOL/L (21-32); CHLORIDE 108 MMOL/L (98-107); CREATININE 0.6 MG/DL (0.55-1.30); PHOSPHORUS 1.2 MG/DL (2.5-4.9); POTASSIUM 4.1 MMOL/L (3.5-5.1); SODIUM 142 MMOL/L (136-145)
[2018-06-04 06:44] LABS: % IRON SATURATION 62 % (15-50); IRON 64 ug/dL (50-175); TOTAL IRON BINDING CAPACITY 104 ug/dL (250-450)
[2018-06-04] MEDS ORDERED: Vancomycin 1250mg/D5W 250ml IVPB ONE (08:00)
[2018-06-04] MEDS: Pantoprazole Inj IVP SCH ×2 (08:58→20:43)
[2018-06-04] MEDS: Midodrine 10mg tab ORAL SCH ×3 (08:58→20:45)
[2018-06-04] MEDS: levETIRAcetam 500mg/5ml Liquid NG SCH ×2 (08:58→20:42)
[2018-06-04] MEDS: Heparin 5000 units/ml inj SUBQ SCH ×2 (09:01→20:43)
--- NOTE | 2018-06-04 09:34 | Nephrology Progress Note ---
Assessment/Plan Problem List: (1) Septic shock (2) ATN (acute tubular necrosis) (3) UTI (urinary tract infection) (4) feeding by Jt (5) Hypoalbuminemia Assessment OFF pressors Acute renal failure- Likely urinary retention Hypotension, on Pressors Sever Anemia UTI , Pneumonia, Amputated left leg Plan DC Hydrocortisone Transfused Hydrate ferreira Avoid Nephrotoxics monitor renal parameters Midodrine Albumin bolus as needed to Tele Subjective ROS Limited/Unobtainable: No Constitutional: Reports: malaise Objective Objective Last 24 Hour Vital Signs Date Time Temp Pulse Resp B/P (MAP) Pulse Ox O2 Delivery O2 Flow Rate FiO2 06/04/18 08:00 Nasal Cannula 2.0 06/04/18 08:00 98.2 93 17 105/60 (75) 97 98.2 06/04/18 08:00 92 06/04/18 07:00 90 19 103/55 (71) 98 06/04/18 06:00 97 18 100/51 (67) 98 06/04/18 05:00 87 14 99/58 (72) 99 06/04/18 04:00 63 06/04/18 04:00 99.1 80 11 93/55 (68) 99 99.1 06/04/18 04:00 Nasal Cannula 2.0 06/04/18 03:00 91 14 96/56 (69) 98 06/04/18 02:00 85 18 92/53 (66) 99 06/04/18 01:00 92 18 105/58 (74) 100 06/04/18 00:00 80 06/04/18 00:00 Nasal Cannula 2.0 06/04/18 00:00 98.9 101 16 93/57 (69) 99 98.9 06/03/18 23:00 90 14 107/58 (74) 100 06/03/18 22:00 93 13 99/55 (70) 99 06/03/18 21:00 93 14 93/54 (67) 98 06/03/18 21:00 99/55 06/03/18 20:31 98 Nasal Cannula 2.0 28 06/03/18 20:31 Nasal Cannula 2.0 28 06/03/18 20:30 82 16 Nasal Cannula 2.0 28 06/03/18 20:00 98.1 97 14 112/57 (75) 98 98.1 06/03/18 20:00 120/60 06/03/18 20:00 Nasal Cannula 2.0 06/03/18 20:00 71 18 19:00 110/59 18 19:00 67 13 106/60 (75) 97 18 18:27 119/59 18 18:00 67 12 113/54 (73) 99 18 18:00 113/54 06/03/18 18:00 98.7 67 12 113/54 (73) 99 98.7 06/03/18 17:30 76 16 103/46 (65) 98 18 17:00 118/60 06/03/18 17:00 89 21 118/60 (79) 98 06/03/18 16:30 73 17 105/68 (80) 99 06/03/18 16:00 71 06/03/18 16:00 109/91 06/03/18 16:00 Nasal Cannula 2.0 06/03/18 16:00 97.8 71 17 104/48 (66) 99 97.8 06/03/18 15:30 71 17 94/47 (63) 99 06/03/18 15:00 78 18 95/53 (67) 99 06/03/18 15:00 89/34 06/03/18 14:30 81 14 90/52 (65) 99 06/03/18 14:00 80 13 89/54 (66) 99 18 14:00 119/65 06/03/18 13:00 84/44 06/03/18 12:45 92 15 85/56 (66) 99 06/03/18 12:30 79 17 102/57 (72) 100 06/03/18 12:15 86 12 96/59 (71) 99 06/03/18 12:00 87 14 97/57 (70) 99 06/03/18 12:00 84 06/03/18 12:00 97/57 06/03/18 12:00 Nasal Cannula 2.0 06/03/18 11:45 96 17 106/57 (73) 99 06/03/18 11:30 88 16 109/67 (81) 100 06/03/18 11:15 72 18 104/56 (72) 100 06/03/18 11:00 62 14 111/49 (69) 100 06/03/18 11:00 111/49 06/03/18 10:45 75 16 113/65 (81) 99 06/03/18 10:30 98.9 64 11 113/54 (73) 100 98.9 06/03/18 10:28 Nasal Cannula 2.0 28 06/03/18 10:27 100 Nasal Cannula 2.0 28 06/03/18 10:26 73 16 Nasal Cannula 2.0 28 06/03/18 10:15 67 17 100 06/03/18 10:00 62 12 103/66 (78) 100 06/03/18 10:00 103/66 06/03/18 09:45 76 16 116/59 (78) 100 Intake and Output 06/03/18 06/04/18 19:00 07:00 Intake Total 2195.14 ml 1287.62 ml Output Total 750 ml 625 ml Balance 1445.14 ml 662.62 ml Free Water 430 ml 100 ml IV Total 1515.14 ml 557.62 ml Tube Feeding 250 ml 630 ml Output Urine Total 750 ml 625 ml # Bowel Movements 2 Laboratory Tests 06/04/18 04:00: White Blood Count 12.5H, Red Blood Count 3.00L, Hemoglobin 9.1L, Hematocrit 27.4L, Mean Corpuscular Volume 92, Mean Corpuscular Hemoglobin 30.5, Mean Corpuscular Hemoglobin Concent 33.3, Red Cell Distribution Width 12.3, Platelet Count 315, Mean Platelet Volume 6.5, Neutrophils (%) (Auto) 82.6H, Lymphocytes ( %) (Auto) 11.1L, Monocytes (%) (Auto) 6.1, Eosinophils (%) (Auto) 0.0, Basophils (%) (Auto) 0.2, Erythrocyte Sedimentation Rate [Pending], Prothrombin Time 12.0H, Prothromb Time International Ratio 1.1, Urine Eosinophils None seen , Sodium Level 142, Potassium Level 4.1, Chloride Level 108H, Carbon Dioxide Level 27, Anion Gap 7, Blood Urea Nitrogen 16, Creatinine 0.6, Estimat Glomerular Filtration Rate > 60, Glucose Level 239H, Calcium Level 8.8, Phosphorus Level 1.2L, Magnesium Level 2.0, Iron Level 64, Total Iron Binding Capacity 104L, Percent Iron Saturation 62H, Unsaturated Iron Binding 40L, Total Bilirubin 0.3, Aspartate Amino Transf (AST/SGOT) 26, Alanine Aminotransferase ( ALT/SGPT) 33, Alkaline Phosphatase 70, C-Reactive Protein, Quantitative 11.2H, Total Protein 5.7L, Albumin 2.1L, Globulin 3.6, Albumin/Globulin Ratio 0.6L, Amylase Level 20L, Lipase 82, Carcinoembryonic Antigen [Pending], Random Vancomycin Level < 2.0 06/04/18 04:30: Stool Occult Blood [Pending] Height (Feet): 5 Height (Inches): 10.00 Weight (Pounds): 125 General Appearance: no apparent distress Cardiovascular: tachycardia Respiratory/Chest: decreased breath sounds Abdomen: soft Objective no other change Jose Menon MD Jun 04, 2018 09:34
[2018-06-04] MEDS ORDERED: Potassium Phosphate 30 MM in NS 275 ML IV ONE (10:00)
--- NOTE | 2018-06-04 10:07 | Infectious Diseases Prog Note ---
Assessment/Plan Assessment/Plan The patient is a 58-year-old unfortunate male with: Sepsis/septic shock. 06/01 - BCx NGTD UTI (complicated) in the setting of urinary obstruction. 06/01/18 - UCx E. Coli Fever - resolved Leukocytosis, improving. CKD versus FARHANA. PLAN: - Continue the patient on IV ertapenem #3 and vancomycin #3 for now 06/02 SP Amikacin #1 - Monitor CBC. - Monitor BMP. - Monitor cultures (blood, sputum, urine). - Monitor chest x-ray. We will follow the patient with you during this admission. Subjective Allergies: Coded Allergies: DIVALPROEX SODIUM (Verified Allergy, Unknown, 06/01/18) PENICILLINS (Unverified Allergy, Unknown, 06/01/18) Subjective Patient talking a little No complaints Objective Vital Signs Last 24 Hour Vital Signs Date Time Temp Pulse Resp B/P (MAP) Pulse Ox O2 Delivery O2 Flow Rate FiO2 06/04/18 09:00 75 19 98/54 (69) 98 06/04/18 08:16 Nasal Cannula 2.0 28 06/04/18 08:16 86 20 Nasal Cannula 2.0 28 06/04/18 08:16 99 Nasal Cannula 2.0 28 06/04/18 08:00 Nasal Cannula 2.0 06/04/18 08:00 98.2 93 17 105/60 (75) 97 98.2 06/04/18 08:00 92 06/04/18 07:00 90 19 103/55 (71) 98 06/04/18 06:00 97 18 100/51 (67) 98 06/04/18 05:00 87 14 99/58 (72) 99 06/04/18 04:00 63 06/04/18 04:00 99.1 80 11 93/55 (68) 99 99.1 06/04/18 04:00 Nasal Cannula 2.0 06/04/18 03:00 91 14 96/56 (69) 98 06/04/18 02:00 85 18 92/53 (66) 99 06/04/18 01:00 92 18 105/58 (74) 100 06/04/18 00:00 80 06/04/18 00:00 Nasal Cannula 2.0 06/04/18 00:00 98.9 101 16 93/57 (69) 99 98.9 18 23:00 90 14 107/58 (74) 100 1618 22:00 93 13 99/55 (70) 99 1618 21:00 93 14 93/54 (67) 98 1618 21:00 99/55 1618 20:31 98 Nasal Cannula 2.0 28 18 20:31 Nasal Cannula 2.0 28 18 20:30 82 16 Nasal Cannula 2.0 28 18 20:00 98.1 97 14 112/57 (75) 98 98.1 18 20:00 120/60 18 20:00 Nasal Cannula 2.0 18 20:00 71 18 19:00 110/59 18 19:00 67 13 106/60 (75) 97 18 18:27 119/59 06/03/18 18:00 67 12 113/54 (73) 99 18 18:00 113/54 18 18:00 98.7 67 12 113/54 (73) 99 98.7 18 17:30 76 16 103/46 (65) 98 1618 17:00 118/60 18 17:00 89 21 118/60 (79) 98 1618 16:30 73 17 105/68 (80) 99 18 16:00 71 1618 16:00 109/91 18 16:00 Nasal Cannula 2.0 06/03/18 16:00 97.8 71 17 104/48 (66) 99 97.8 16/18 15:30 71 17 94/47 (63) 99 16/18 15:00 78 18 95/53 (67) 99 16/18 15:00 89/34 16/18 14:30 81 14 90/52 (65) 99 16/18 14:00 80 13 89/54 (66) 99 1618 14:00 119/65 16/18 13:00 84/44 16/18 12:45 92 15 85/56 (66) 99 18 12:30 79 17 102/57 (72) 100 06/03/18 12:15 86 12 96/59 (71) 99 06/03/18 12:00 87 14 97/57 (70) 99 06/03/18 12:00 84 06/03/18 12:00 97/57 06/03/18 12:00 Nasal Cannula 2.0 06/03/18 11:45 96 17 106/57 (73) 99 06/03/18 11:30 88 16 109/67 (81) 100 06/03/18 11:15 72 18 104/56 (72) 100 06/03/18 11:00 62 14 111/49 (69) 100 06/03/18 11:00 111/49 06/03/18 10:45 75 16 113/65 (81) 99 06/03/18 10:30 98.9 64 11 113/54 (73) 100 98.9 06/03/18 10:28 Nasal Cannula 2.0 28 06/03/18 10:27 100 Nasal Cannula 2.0 28 06/03/18 10:26 73 16 Nasal Cannula 2.0 28 06/03/18 10:15 67 17 100 06/03/18 10:00 62 12 103/66 (78) 100 06/03/18 10:00 103/66 Height (Feet): 5 Height (Inches): 10.00 Weight (Pounds): 125 Objective GEN: NAD, HEENT: NCAT, No pale conjunctivae. No icterus. CHEST: CTAB, ABD: Soft, Feeding tube in place. HEART: RRR, S1, S2 EXTREMITIES: Left BKA. NEUROLOGIC: Lethargic. GENITOURINARY: Vargas catheter in place. Microbiology Date/Time Source Procedure Growth Status 06/02/18 11:50 Blood Blood Culture - Preliminary NO GROWTH AFTER 24 HOURS Resulted 06/02/18 11:30 Blood Blood Culture - Preliminary NO GROWTH AFTER 24 HOURS Resulted 06/01/18 18:58 Blood Blood Culture - Preliminary NO GROWTH AFTER 48 HOURS Resulted 06/01/18 18:58 Blood Blood Culture - Preliminary NO GROWTH AFTER 48 HOURS Resulted 06/01/18 18:50 Nasal Nares MRSA Culture - Final Staphylococcus Aureus - Mrsa Complete 06/01/18 18:50 Urine,Clean Catch Urine Culture - Final Escherichia Coli Complete 06/01/18 18:50 Rectum VRE Culture - Final NO VANCOMYCIN RESISTANT ENTEROCOCCUS ... Complete Laboratory Tests Test 06/04/18 04:00 06/04/18 04:30 White Blood Count 12.5 K/UL (4.8-10.8) H Red Blood Count 3.00 M/UL (4.70-6.10) L Hemoglobin 9.1 G/DL (14.2-18.0) L Hematocrit 27.4 % (42.0-52.0) L Mean Corpuscular Volume 92 FL (80-99) Mean Corpuscular Hemoglobin 30.5 PG (27.0-31.0) Mean Corpuscular Hemoglobin Concent 33.3 G/DL (32.0-36.0) Red Cell Distribution Width 12.3 % (11.6-14.8) Platelet Count 315 K/UL (150-450) Mean Platelet Volume 6.5 FL (6.5-10.1) Neutrophils (%) (Auto) 82.6 % (45.0-75.0) H Lymphocytes (%) (Auto) 11.1 % (20.0-45.0) L Monocytes (%) (Auto) 6.1 % (1.0-10.0) Eosinophils (%) (Auto) 0.0 % (0.0-3.0) Basophils (%) (Auto) 0.2 % (0.0-2.0) Erythrocyte Sedimentation Rate 71 MM/HR (0-20) H Prothrombin Time 12.0 SEC (9.30-11.50) H Prothromb Time International Ratio 1.1 (0.9-1.1) Urine Eosinophils None seen (NONE SEEN) Sodium Level 142 MMOL/L (136-145) Potassium Level 4.1 MMOL/L (3.5-5.1) Chloride Level 108 MMOL/L (98-107) H Carbon Dioxide Level 27 MMOL/L (21-32) Anion Gap 7 mmol/L (5-15) Blood Urea Nitrogen 16 mg/dL (7-18) Creatinine 0.6 MG/DL (0.55-1.30) Estimat Glomerular Filtration Rate > 60 mL/min (>60) Glucose Level 239 MG/DL (74-106) H Calcium Level 8.8 MG/DL (8.5-10.1) Phosphorus Level 1.2 MG/DL (2.5-4.9) L Magnesium Level 2.0 MG/DL (1.8-2.4) Iron Level 64 ug/dL (50-175) Total Iron Binding Capacity 104 ug/dL (250-450) L Percent Iron Saturation 62 % (15-50) H Unsaturated Iron Binding 40 ug/dL (112-346) L Total Bilirubin 0.3 MG/DL (0.2-1.0) Aspartate Amino Transf (AST/SGOT) 26 U/L (15-37) Alanine Aminotransferase (ALT/SGPT) 33 U/L (12-78) Alkaline Phosphatase 70 U/L (46-116) C-Reactive Protein, Quantitative 11.2 mg/dL (0.00-0.90) H Total Protein 5.7 G/DL (6.4-8.2) L Albumin 2.1 G/DL (3.4-5.0) L Globulin 3.6 g/dL Albumin/Globulin Ratio 0.6 (1.0-2.7) L Amylase Level 20 U/L (25-115) L Lipase 82 U/L (73-393) Carcinoembryonic Antigen Pending Random Vancomycin Level < 2.0 ug/mL Stool Occult Blood Pending Current Medications Medications (Trade) Dose Ordered Sig/Cristofer Route PRN Reason Start Time Stop Time Status Last Admin Dose Admin Acetaminophen (Tylenol) 650 mg Q4H PRN ORAL fever 06/02/18 09:45 07/02/18 09:44 Albuterol/ Ipratropium (Albuterol/ Ipratropium) 3 ml Q4H PRN HHN Shortness of Breath 06/02/18 09:45 06/07/18 09:44 Chlorhexidine Gluconate (Aileen-Hex 2%) 1 applic DAILY@2000 TOPIC 06/02/18 20:00 07/02/18 19:59 06/03/18 20:00 Dextrose (Dextrose 50%) 25 ml STAT PRN IV Hypoglycemia 06/01/18 23:45 07/01/18 23:44 Dextrose (Dextrose 50%) 50 ml STAT PRN IV Hypoglycemia 06/01/18 23:45 07/01/18 23:44 Dextrose/Sodium Chloride 1,000 ml @ 50 mls/hr Q20H IV 06/03/18 17:00 07/03/18 16:59 06/03/18 17:16 Ertapenem 1 gm/ Sodium Chloride 55 ml @ 110 mls/hr Q24H IV 06/04/18 12:00 06/07/18 11:59 Heparin Sodium (Porcine) (Heparin 5000 units/ml) 5,000 units EVERY 12 HOURS SUBQ 06/02/18 09:00 07/02/18 08:59 06/04/18 09:01 Insulin Aspart (NovoLOG) Q6HR SUBQ 06/02/18 00:00 07/02/18 00:00 06/04/18 05:24 Levetiracetam (Keppra) 500 mg Q12HR NG 06/02/18 00:06 07/02/18 00:05 06/04/18 08:58 Midodrine (Pro-Amatine) 10 mg Q8HR ORAL 06/04/18 14:00 07/03/18 17:59 Norepinephrine Bitartrate 4 mg/ Dextrose 254 ml @ 0 mls/hr Q24H IV 06/02/18 09:45 07/02/18 09:44 06/03/18 18:27 Ondansetron HCl (Zofran) 4 mg Q6H PRN IVP Nausea & Vomiting 06/02/18 09:45 07/02/18 09:44 Pantoprazole (Protonix) 40 mg EVERY 12 HOURS IVP 06/02/18 21:00 07/02/18 20:59 06/04/18 08:58 Polyethylene Glycol (Miralax) 17 gm DAILYPRN PRN ORAL Constipation 06/02/18 09:45 07/02/18 09:44 Potassium Phosphate 30 mm/ Sodium Chloride 285 ml @ 47.5 mls/hr ONCE ONCE IV 06/04/18 10:00 06/04/18 15:59 Vancomycin HCl (Vanco rx to dose) 1 ea DAILY PRN MISC . 06/02/18 10:15 07/02/18 10:14 Jacek Davenport MD Jun 04, 2018 10:07
--- NOTE | 2018-06-04 10:27 | Pulmonolgy Critical Care Note ---
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, 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 Discussed with: nurses, consultants, telehealth case managermanager cash - Objective Last 24 Hour Vital Signs Date Time Temp Pulse Resp B/P (MAP) Pulse Ox O2 Delivery O2 Flow Rate FiO2 06/04/18 10:00 80 19 105/60 (75) 98 06/04/18 09:00 75 19 98/54 (69) 98 06/04/18 08:16 Nasal Cannula 2.0 28 06/04/18 08:16 86 20 Nasal Cannula 2.0 28 06/04/18 08:16 99 Nasal Cannula 2.0 28 06/04/18 08:00 Nasal Cannula 2.0 06/04/18 08:00 98.2 93 17 105/60 (75) 97 98.2 06/04/18 08:00 92 06/04/18 07:00 90 19 103/55 (71) 98 06/04/18 06:00 97 18 100/51 (67) 98 06/04/18 05:00 87 14 99/58 (72) 99 06/04/18 04:00 63 06/04/18 04:00 99.1 80 11 93/55 (68) 99 99.1 06/04/18 04:00 Nasal Cannula 2.0 06/04/18 03:00 91 14 96/56 (69) 98 06/04/18 02:00 85 18 92/53 (66) 99 06/04/18 01:00 92 18 105/58 (74) 100 06/04/18 00:00 80 06/04/18 00:00 Nasal Cannula 2.0 06/04/18 00:00 98.9 101 16 93/57 (69) 99 98.9 9/16/18 23:00 90 14 107/58 (74) 100 18 22:00 93 13 99/55 (70) 99 18 21:00 93 14 93/54 (67) 98 18 21:00 99/55 18 20:31 98 Nasal Cannula 2.0 28 06/03/18 20:31 Nasal Cannula 2.0 28 18 20:30 82 16 Nasal Cannula 2.0 28 06/03/18 20:00 98.1 97 14 112/57 (75) 98 98.1 18 20:00 120/60 18 20:00 Nasal Cannula 2.0 06/03/18 20:00 71 18 19:00 110/59 18 19:00 67 13 106/60 (75) 97 18 18:27 119/59 18 18:00 67 12 113/54 (73) 99 18 18:00 113/54 18 18:00 98.7 67 12 113/54 (73) 99 98.7 18 17:30 76 16 103/46 (65) 98 18 17:00 118/60 18 17:00 89 21 118/60 (79) 98 18 16:30 73 17 105/68 (80) 99 18 16:00 71 18 16:00 109/91 18 16:00 Nasal Cannula 2.0 06/03/18 16:00 97.8 71 17 104/48 (66) 99 97.8 18 15:30 71 17 94/47 (63) 99 18 15:00 78 18 95/53 (67) 99 1618 15:00 89/34 1618 14:30 81 14 90/52 (65) 99 18 14:00 80 13 89/54 (66) 99 1618 14:00 119/65 18 13:00 84/44 1618 12:45 92 15 85/56 (66) 99 18 12:30 79 17 102/57 (72) 100 06/03/18 12:15 86 12 96/59 (71) 99 06/03/18 12:00 87 14 97/57 (70) 99 06/03/18 12:00 84 06/03/18 12:00 97/57 06/03/18 12:00 Nasal Cannula 2.0 06/03/18 11:45 96 17 106/57 (73) 99 06/03/18 11:30 88 16 109/67 (81) 100 06/03/18 11:15 72 18 104/56 (72) 100 06/03/18 11:00 62 14 111/49 (69) 100 06/03/18 11:00 111/49 06/03/18 10:45 75 16 113/65 (81) 99 06/03/18 10:30 98.9 64 11 113/54 (73) 100 98.9 06/03/18 10:28 Nasal Cannula 2.0 28 06/03/18 10:27 100 Nasal Cannula 2.0 28 Status: awake Condition: critical Neck: full ROM Lungs: chest wall tender Heart: HR/BP unstable Abdomen: soft, feeding tube Decubiti: location Micro: Microbiology Date/Time Source Procedure Growth Status 06/02/18 11:50 Blood Blood Culture - Preliminary NO GROWTH AFTER 24 HOURS Resulted 06/02/18 11:30 Blood Blood Culture - Preliminary NO GROWTH AFTER 24 HOURS Resulted 06/01/18 18:58 Blood Blood Culture - Preliminary NO GROWTH AFTER 48 HOURS Resulted 06/01/18 18:58 Blood Blood Culture - Preliminary NO GROWTH AFTER 48 HOURS Resulted 06/01/18 18:50 Nasal Nares MRSA Culture - Final Staphylococcus Aureus - Mrsa Complete 06/01/18 18:50 Urine,Clean Catch Urine Culture - Final Escherichia Coli Complete 06/01/18 18:50 Rectum VRE Culture - Final NO VANCOMYCIN RESISTANT ENTEROCOCCUS ... Complete Accucheck: 285 Critical Care - Subjective ROS Limited/Unobtainable: No Condition: critical EKG Rhythm: Sinus Rhythm FI02: 28 Sputum Amount: None Tube Feeding Amount: 60 I&O: Intake and Output 06/03/18 06/04/18 19:00 07:00 Intake Total 2195.14 ml 1287.62 ml Output Total 750 ml 625 ml Balance 1445.14 ml 662.62 ml Free Water 430 ml 100 ml IV Total 1515.14 ml 557.62 ml Tube Feeding 250 ml 630 ml Output Urine Total 750 ml 625 ml # Bowel Movements 2 Labs: Laboratory Tests Test 06/04/18 04:00 06/04/18 04:30 White Blood Count 12.5 K/UL (4.8-10.8) H Red Blood Count 3.00 M/UL (4.70-6.10) L Hemoglobin 9.1 G/DL (14.2-18.0) L Hematocrit 27.4 % (42.0-52.0) L Mean Corpuscular Volume 92 FL (80-99) Mean Corpuscular Hemoglobin 30.5 PG (27.0-31.0) Mean Corpuscular Hemoglobin Concent 33.3 G/DL (32.0-36.0) Red Cell Distribution Width 12.3 % (11.6-14.8) Platelet Count 315 K/UL (150-450) Mean Platelet Volume 6.5 FL (6.5-10.1) Neutrophils (%) (Auto) 82.6 % (45.0-75.0) H Lymphocytes (%) (Auto) 11.1 % (20.0-45.0) L Monocytes (%) (Auto) 6.1 % (1.0-10.0) Eosinophils (%) (Auto) 0.0 % (0.0-3.0) Basophils (%) (Auto) 0.2 % (0.0-2.0) Erythrocyte Sedimentation Rate 71 MM/HR (0-20) H Prothrombin Time 12.0 SEC (9.30-11.50) H Prothromb Time International Ratio 1.1 (0.9-1.1) Urine Eosinophils None seen (NONE SEEN) Sodium Level 142 MMOL/L (136-145) Potassium Level 4.1 MMOL/L (3.5-5.1) Chloride Level 108 MMOL/L (98-107) H Carbon Dioxide Level 27 MMOL/L (21-32) Anion Gap 7 mmol/L (5-15) Blood Urea Nitrogen 16 mg/dL (7-18) Creatinine 0.6 MG/DL (0.55-1.30) Estimat Glomerular Filtration Rate > 60 mL/min (>60) Glucose Level 239 MG/DL (74-106) H Calcium Level 8.8 MG/DL (8.5-10.1) Phosphorus Level 1.2 MG/DL (2.5-4.9) L Magnesium Level 2.0 MG/DL (1.8-2.4) Iron Level 64 ug/dL (50-175) Total Iron Binding Capacity 104 ug/dL (250-450) L Percent Iron Saturation 62 % (15-50) H Unsaturated Iron Binding 40 ug/dL (112-346) L Total Bilirubin 0.3 MG/DL (0.2-1.0) Aspartate Amino Transf (AST/SGOT) 26 U/L (15-37) Alanine Aminotransferase (ALT/SGPT) 33 U/L (12-78) Alkaline Phosphatase 70 U/L (46-116) C-Reactive Protein, Quantitative 11.2 mg/dL (0.00-0.90) H Total Protein 5.7 G/DL (6.4-8.2) L Albumin 2.1 G/DL (3.4-5.0) L Globulin 3.6 g/dL Albumin/Globulin Ratio 0.6 (1.0-2.7) L Amylase Level 20 U/L (25-115) L Lipase 82 U/L (73-393) Carcinoembryonic Antigen Pending Random Vancomycin Level < 2.0 ug/mL Stool Occult Blood Pending Dony Sanchez MD Jun 04, 2018 10:27
--- NOTE | 2018-06-04 11:23 | GI Progress Note ---
Assessment/Plan Problems: (1) Amputated left leg ICD Codes: Z89.612 - Acquired absence of left leg above knee SNOMED: 722179261 (2) feeding by Jt (3) Sepsis ICD Codes: A41.9 - Sepsis, unspecified organism SNOMED: 73694635, 461561152 (4) Diabetes ICD Codes: E11.9 - Type 2 diabetes mellitus without complications SNOMED: 29868525 (5) Septic shock ICD Codes: A41.9 - Sepsis, unspecified organism; R65.21 - Severe sepsis with septic shock SNOMED: 56529839 (6) Renal insufficiency ICD Codes: N28.9 - Disorder of kidney and ureter, unspecified SNOMED: 856501638, 403009627 (7) Hypoalbuminemia ICD Codes: E88.09 - Other disorders of plasma-protein metabolism, not elsewhere classified SNOMED: 750813028 Status: stable Status Narrative Discussed with Dr. Mcneil. Assessment/Plan start JTF anemia work up abx per ID fu labs supportive care chart from an out side facility was reviewed The patient was seen and examined at bedside and all new and available data was reviewed in the patients chart. I agree with the above findings, impression and plan. (Patient seen earlier today. Signature stamp does not reflect patient encounter time.). - Louis Mcneil MD Subjective Gastrointestinal/Abdominal: Reports: no symptoms Objective Last 24 Hour Vital Signs Date Time Temp Pulse Resp B/P (MAP) Pulse Ox O2 Delivery O2 Flow Rate FiO2 06/04/18 10:00 80 19 105/60 (75) 98 06/04/18 09:00 75 19 98/54 (69) 98 06/04/18 08:16 Nasal Cannula 2.0 28 06/04/18 08:16 86 20 Nasal Cannula 2.0 28 06/04/18 08:16 99 Nasal Cannula 2.0 28 06/04/18 08:00 Nasal Cannula 2.0 06/04/18 08:00 98.2 93 17 105/60 (75) 97 98.2 06/04/18 08:00 92 06/04/18 07:00 90 19 103/55 (71) 98 06/04/18 06:00 97 18 100/51 (67) 98 06/04/18 05:00 87 14 99/58 (72) 99 9/17/18 04:00 63 18 04:00 99.1 80 11 93/55 (68) 99 99.1 06/04/18 04:00 Nasal Cannula 2.0 06/04/18 03:00 91 14 96/56 (69) 98 18 02:00 85 18 92/53 (66) 99 18 01:00 92 18 105/58 (74) 100 18 00:00 80 06/04/18 00:00 Nasal Cannula 2.0 06/04/18 00:00 98.9 101 16 93/57 (69) 99 98.9 06/03/18 23:00 90 14 107/58 (74) 100 18 22:00 93 13 99/55 (70) 99 18 21:00 93 14 93/54 (67) 98 18 21:00 99/55 18 20:31 98 Nasal Cannula 2.0 28 06/03/18 20:31 Nasal Cannula 2.0 28 18 20:30 82 16 Nasal Cannula 2.0 28 06/03/18 20:00 98.1 97 14 112/57 (75) 98 98.1 18 20:00 120/60 18 20:00 Nasal Cannula 2.0 18 20:00 71 18 19:00 110/59 18 19:00 67 13 106/60 (75) 97 1618 18:27 119/59 16/18 18:00 67 12 113/54 (73) 99 16/18 18:00 113/54 16/18 18:00 98.7 67 12 113/54 (73) 99 98.7 18 17:30 76 16 103/46 (65) 98 1618 17:00 118/60 1618 17:00 89 21 118/60 (79) 98 16/18 16:30 73 17 105/68 (80) 99 1618 16:00 71 16/18 16:00 109/91 18 16:00 Nasal Cannula 2.0 18 16:00 97.8 71 17 104/48 (66) 99 97.8 06/03/18 15:30 71 17 94/47 (63) 99 06/03/18 15:00 78 18 95/53 (67) 99 06/03/18 15:00 89/34 06/03/18 14:30 81 14 90/52 (65) 99 06/03/18 14:00 80 13 89/54 (66) 99 06/03/18 14:00 119/65 06/03/18 13:00 84/44 06/03/18 12:45 92 15 85/56 (66) 99 06/03/18 12:30 79 17 102/57 (72) 100 06/03/18 12:15 86 12 96/59 (71) 99 06/03/18 12:00 87 14 97/57 (70) 99 06/03/18 12:00 84 06/03/18 12:00 97/57 06/03/18 12:00 Nasal Cannula 2.0 06/03/18 11:45 96 17 106/57 (73) 99 06/03/18 11:30 88 16 109/67 (81) 100 Intake and Output 06/03/18 06/04/18 19:00 07:00 Intake Total 2195.14 ml 1287.62 ml Output Total 750 ml 625 ml Balance 1445.14 ml 662.62 ml Free Water 430 ml 100 ml IV Total 1515.14 ml 557.62 ml Tube Feeding 250 ml 630 ml Output Urine Total 750 ml 625 ml # Bowel Movements 2 Laboratory Tests Test 06/04/18 04:00 06/04/18 04:30 White Blood Count 12.5 K/UL (4.8-10.8) H Red Blood Count 3.00 M/UL (4.70-6.10) L Hemoglobin 9.1 G/DL (14.2-18.0) L Hematocrit 27.4 % (42.0-52.0) L Mean Corpuscular Volume 92 FL (80-99) Mean Corpuscular Hemoglobin 30.5 PG (27.0-31.0) Mean Corpuscular Hemoglobin Concent 33.3 G/DL (32.0-36.0) Red Cell Distribution Width 12.3 % (11.6-14.8) Platelet Count 315 K/UL (150-450) Mean Platelet Volume 6.5 FL (6.5-10.1) Neutrophils (%) (Auto) 82.6 % (45.0-75.0) H Lymphocytes (%) (Auto) 11.1 % (20.0-45.0) L Monocytes (%) (Auto) 6.1 % (1.0-10.0) Eosinophils (%) (Auto) 0.0 % (0.0-3.0) Basophils (%) (Auto) 0.2 % (0.0-2.0) Erythrocyte Sedimentation Rate 71 MM/HR (0-20) H Prothrombin Time 12.0 SEC (9.30-11.50) H Prothromb Time International Ratio 1.1 (0.9-1.1) Urine Eosinophils None seen (NONE SEEN) Sodium Level 142 MMOL/L (136-145) Potassium Level 4.1 MMOL/L (3.5-5.1) Chloride Level 108 MMOL/L (98-107) H Carbon Dioxide Level 27 MMOL/L (21-32) Anion Gap 7 mmol/L (5-15) Blood Urea Nitrogen 16 mg/dL (7-18) Creatinine 0.6 MG/DL (0.55-1.30) Estimat Glomerular Filtration Rate > 60 mL/min (>60) Glucose Level 239 MG/DL (74-106) H Calcium Level 8.8 MG/DL (8.5-10.1) Phosphorus Level 1.2 MG/DL (2.5-4.9) L Magnesium Level 2.0 MG/DL (1.8-2.4) Iron Level 64 ug/dL (50-175) Total Iron Binding Capacity 104 ug/dL (250-450) L Percent Iron Saturation 62 % (15-50) H Unsaturated Iron Binding 40 ug/dL (112-346) L Total Bilirubin 0.3 MG/DL (0.2-1.0) Aspartate Amino Transf (AST/SGOT) 26 U/L (15-37) Alanine Aminotransferase (ALT/SGPT) 33 U/L (12-78) Alkaline Phosphatase 70 U/L (46-116) C-Reactive Protein, Quantitative 11.2 mg/dL (0.00-0.90) H Total Protein 5.7 G/DL (6.4-8.2) L Albumin 2.1 G/DL (3.4-5.0) L Globulin 3.6 g/dL Albumin/Globulin Ratio 0.6 (1.0-2.7) L Amylase Level 20 U/L (25-115) L Lipase 82 U/L (73-393) Carcinoembryonic Antigen Pending Random Vancomycin Level < 2.0 ug/mL Stool Occult Blood Negative (NEGATIVE) Height (Feet): 5 Height (Inches): 10.00 Weight (Pounds): 125 General Appearance: WD/WN, no apparent distress, alert Cardiovascular: normal rate Respiratory/Chest: normal breath sounds, no respiratory distress Abdominal Exam: normal bowel sounds, non tender, soft, other - JT Extremities: normal range of motion, non-tender Finn El NP Jun 04, 2018 11:22
[2018-06-04] MEDS ORDERED: Ertapenem 1 GM in NS 55 ML IV SCH (12:00)
[2018-06-04] MEDS ORDERED: Miralax 17gm pkt ORAL PRN (12:55)
[2018-06-04] MEDS ORDERED: Albuterol/Ipratropium 3ml neb HHN PRN (13:45)
[2018-06-04] MEDS ORDERED: Midodrine 10mg tab ORAL SCH (14:00)
[2018-06-04] MEDS: D5NS 1,000 ML IV SCH (14:27)
--- NOTE | 2018-06-04 19:38 | Internal Med Progress Note ---
Subjective Date of Service: Jun 04, 2018 Physician Name MarleyManjinder Attending Physician Ean Joyce MD Current Medications Medications (Trade) Dose Ordered Sig/Cristofer Route PRN Reason Start Time Stop Time Status Last Admin Dose Admin Acetaminophen (Tylenol) 650 mg Q4H PRN ORAL fever 06/04/18 13:45 07/02/18 09:44 Albuterol/ Ipratropium (Albuterol/ Ipratropium) 3 ml Q4H PRN HHN Shortness of Breath 06/04/18 13:45 06/07/18 09:44 Chlorhexidine Gluconate (Aileen-Hex 2%) 1 applic DAILY@2000 TOPIC 06/04/18 20:00 07/02/18 19:59 Dextrose (Dextrose 50%) 25 ml STAT PRN IV Hypoglycemia 06/04/18 12:54 07/01/18 12:53 Dextrose (Dextrose 50%) 50 ml STAT PRN IV Hypoglycemia 06/04/18 12:54 07/01/18 12:53 Dextrose/Sodium Chloride 1,000 ml @ 50 mls/hr Q20H IV 06/04/18 12:45 07/03/18 16:59 06/04/18 14:27 Ertapenem 1 gm/ Sodium Chloride 55 ml @ 110 mls/hr Q24H IV 06/05/18 12:00 06/07/18 11:59 Heparin Sodium (Porcine) (Heparin 5000 units/ml) 5,000 units EVERY 12 HOURS SUBQ 06/04/18 21:00 07/02/18 08:59 Insulin Aspart (NovoLOG) Q6HR SUBQ 06/04/18 18:00 07/02/18 00:00 06/04/18 17:52 Levetiracetam (Keppra) 500 mg Q12HR NG 06/04/18 21:00 07/02/18 00:05 Midodrine (Pro-Amatine) 10 mg Q8HR ORAL 06/04/18 14:00 07/03/18 17:59 06/04/18 14:26 Ondansetron HCl (Zofran) 4 mg Q6H PRN IVP Nausea & Vomiting 06/04/18 15:45 07/02/18 09:44 Pantoprazole (Protonix) 40 mg EVERY 12 HOURS IVP 06/04/18 21:00 07/02/18 20:59 Polyethylene Glycol (Miralax) 17 gm DAILYPRN PRN ORAL Constipation 06/04/18 12:55 07/04/18 12:54 Vancomycin HCl (Vanco rx to dose) 1 ea DAILY PRN MISC . 06/05/18 09:00 07/02/18 10:14 Vancomycin/Sodium Chloride 250 ml @ 166.667 mls/hr Q12H IVPB 06/04/18 23:00 06/09/18 22:59 Allergies: Coded Allergies: DIVALPROEX SODIUM (Verified Allergy, Unknown, 06/01/18) PENICILLINS (Unverified Allergy, Unknown, 06/01/18) Subjective 59 YO M admitted with Fever and gen weakness. Now UTI and sepsis. Cover for Int Med-Dr Joyce. Objective Last Vital Signs Date Time Temp Pulse Resp B/P (MAP) Pulse Ox O2 Delivery O2 Flow Rate FiO2 06/04/18 16:05 97.5 75 18 117/69 (85) 98 97.5 06/04/18 12:00 Nasal Cannula 2.0 06/04/18 08:16 28 Laboratory Tests Test 06/04/18 04:00 06/04/18 04:30 White Blood Count 12.5 K/UL (4.8-10.8) H Red Blood Count 3.00 M/UL (4.70-6.10) L Hemoglobin 9.1 G/DL (14.2-18.0) L Hematocrit 27.4 % (42.0-52.0) L Mean Corpuscular Volume 92 FL (80-99) Mean Corpuscular Hemoglobin 30.5 PG (27.0-31.0) Mean Corpuscular Hemoglobin Concent 33.3 G/DL (32.0-36.0) Red Cell Distribution Width 12.3 % (11.6-14.8) Platelet Count 315 K/UL (150-450) Mean Platelet Volume 6.5 FL (6.5-10.1) Neutrophils (%) (Auto) 82.6 % (45.0-75.0) H Lymphocytes (%) (Auto) 11.1 % (20.0-45.0) L Monocytes (%) (Auto) 6.1 % (1.0-10.0) Eosinophils (%) (Auto) 0.0 % (0.0-3.0) Basophils (%) (Auto) 0.2 % (0.0-2.0) Erythrocyte Sedimentation Rate 71 MM/HR (0-20) H Prothrombin Time 12.0 SEC (9.30-11.50) H Prothromb Time International Ratio 1.1 (0.9-1.1) Urine Eosinophils None seen (NONE SEEN) Sodium Level 142 MMOL/L (136-145) Potassium Level 4.1 MMOL/L (3.5-5.1) Chloride Level 108 MMOL/L (98-107) H Carbon Dioxide Level 27 MMOL/L (21-32) Anion Gap 7 mmol/L (5-15) Blood Urea Nitrogen 16 mg/dL (7-18) Creatinine 0.6 MG/DL (0.55-1.30) Estimat Glomerular Filtration Rate > 60 mL/min (>60) Glucose Level 239 MG/DL (74-106) H Calcium Level 8.8 MG/DL (8.5-10.1) Phosphorus Level 1.2 MG/DL (2.5-4.9) L Magnesium Level 2.0 MG/DL (1.8-2.4) Iron Level 64 ug/dL (50-175) Total Iron Binding Capacity 104 ug/dL (250-450) L Percent Iron Saturation 62 % (15-50) H Unsaturated Iron Binding 40 ug/dL (112-346) L Total Bilirubin 0.3 MG/DL (0.2-1.0) Aspartate Amino Transf (AST/SGOT) 26 U/L (15-37) Alanine Aminotransferase (ALT/SGPT) 33 U/L (12-78) Alkaline Phosphatase 70 U/L (46-116) C-Reactive Protein, Quantitative 11.2 mg/dL (0.00-0.90) H Total Protein 5.7 G/DL (6.4-8.2) L Albumin 2.1 G/DL (3.4-5.0) L Globulin 3.6 g/dL Albumin/Globulin Ratio 0.6 (1.0-2.7) L Amylase Level 20 U/L (25-115) L Lipase 82 U/L (73-393) Carcinoembryonic Antigen Pending Random Vancomycin Level < 2.0 ug/mL Stool Occult Blood Negative (NEGATIVE) Microbiology Date/Time Source Procedure Growth Status 06/02/18 11:50 Blood Blood Culture - Preliminary NO GROWTH AFTER 24 HOURS Resulted 06/02/18 11:30 Blood Blood Culture - Preliminary NO GROWTH AFTER 24 HOURS Resulted 06/03/18 09:27 Sputum Gram Stain - Final Resulted 06/03/18 09:27 Sputum Sputum Culture Pending Resulted Intake and Output 06/03/18 06/04/18 19:00 07:00 Intake Total 2195.14 ml 1287.62 ml Output Total 750 ml 625 ml Balance 1445.14 ml 662.62 ml Free Water 430 ml 100 ml IV Total 1515.14 ml 557.62 ml Tube Feeding 250 ml 630 ml Output Urine Total 750 ml 625 ml # Bowel Movements 2 Objective HYSICAL EXAMINATION: GENERAL: The patient is thin appearing, cachectic white male, in no apparent distress. HEENT: Eyes, pupils equal and responsive to light and accommodation. Extraocular movements intact. NECK: Supple without lymphadenopathy. CHEST: Nasal canula; Lungs are clear to auscultation bilaterally without wheezes or rales. CARDIOVASCULAR: Tachycardic, regular rate. S1 and S2 are normal without murmurs, rubs, or gallops. ABDOMEN: Soft, nondistended with positive bowel sounds. No evidence of hepatosplenomegaly. Currently, no rebound or guarding noted. EXTREMITIES: Negative for clubbing, cyanosis, or edema. RECTAL: Refused. GENITAL: Refused. NEUROLOGIC: Cranial nerves II through XII are grossly intact without focal deficits. Motor strength is 5/5 bilaterally. Assessment/Plan Problem List: (1) HTN (hypertension) Assessment & Plan: current hypotensive (2) Alzheimer's dementia (3) Fever (4) Altered mental status (5) UTI (urinary tract infection) Assessment & Plan: E. Coli-continue ertapenem. See ID note (6) Septic shock Assessment & Plan: Continue levophed. Status: progressing Manjinder Marley MD Jun 04, 2018 19:38
[2018-06-04] MEDS: Dyna-Hex 2% Top Sol 2oz TOPIC SCH (20:42)
--- NOTE | 2018-06-04 22:12 | Consultation ---
History of Present Illness General Date patient seen: Jun 04, 2018 Chief Complaint: Abnormal Labs Reason for Consultation: evaluate recently placed j tube Present Illness HPI 58-year-old male with multiple medical problems as listed below, who was admitted to this medical center for general weakness. the pt is well known to this md the pt has decompensated over the past several months. the pt is unable to make decisions and lacks capacity. he is a poor historian Allergies: Coded Allergies: DIVALPROEX SODIUM (Verified Allergy, Unknown, 06/01/18) PENICILLINS (Unverified Allergy, Unknown, 06/01/18) Medication History Scheduled Escitalopram Oxalate* (Lexapro*), 10 MG ORAL DAILY, (Reported) Olanzapine* (Zyprexa*), 10 MG ORAL DAILY, (Reported) Miscellaneous Medications Ferrous Fumarate (Ferrous Fumarate), 324 MG PO, (Reported) Insulin Aspart* (Novolog*), 0 SUBQ, (Reported) Patient History Limited by: medical condition History Provided By: Patient, Medical Record, PMD Healthcare decision maker NO Resuscitation status Full Code Advanced Directive on File Past Medical/Surgical History Past Medical/Surgical History: (1) Renal insufficiency (2) Pneumonia (3) Septic shock (4) Diabetes (5) Sepsis (6) UTI (urinary tract infection) (7) Feeding by G-tube (8) ATN (acute tubular necrosis) (9) feeding by Jt (10) Hypoalbuminemia (11) Fever (12) Altered mental status (13) HTN (hypertension) (14) Alzheimer's dementia Review of Systems Psychiatric: Reports: prior hx, anxiety, depressed feelings, emotional problems , hallucinations Physical Exam General Appearance: no apparent distress, lethargic, confused, agitated Last 24 Hour Vital Signs Date Time Temp Pulse Resp B/P (MAP) Pulse Ox O2 Delivery O2 Flow Rate FiO2 06/04/18 16:05 97.5 75 18 117/69 (85) 98 97.5 06/04/18 13:06 97.7 81 18 99/60 (73) 96 97.7 06/04/18 12:00 90 06/04/18 12:00 98.0 85 19 105/65 (78) 99 98.0 06/04/18 12:00 Nasal Cannula 2.0 06/04/18 11:00 80 19 110/62 (78) 98 06/04/18 10:00 80 19 105/60 (75) 98 06/04/18 09:00 75 19 98/54 (69) 98 06/04/18 08:16 Nasal Cannula 2.0 28 06/04/18 08:16 86 20 Nasal Cannula 2.0 28 06/04/18 08:16 99 Nasal Cannula 2.0 28 06/04/18 08:00 Nasal Cannula 2.0 06/04/18 08:00 98.2 93 17 105/60 (75) 97 98.2 06/04/18 08:00 92 06/04/18 07:00 90 19 103/55 (71) 98 06/04/18 06:00 97 18 100/51 (67) 98 06/04/18 05:00 87 14 99/58 (72) 99 06/04/18 04:00 63 06/04/18 04:00 99.1 80 11 93/55 (68) 99 99.1 06/04/18 04:00 Nasal Cannula 2.0 06/04/18 03:00 91 14 96/56 (69) 98 06/04/18 02:00 85 18 92/53 (66) 99 06/04/18 01:00 92 18 105/58 (74) 100 06/04/18 00:00 80 06/04/18 00:00 Nasal Cannula 2.0 06/04/18 00:00 98.9 101 16 93/57 (69) 99 98.9 06/03/18 23:00 90 14 107/58 (74) 100 Intake and Output 06/03/18 06/04/18 19:00 07:00 Intake Total 2195.14 ml 1287.62 ml Output Total 750 ml 625 ml Balance 1445.14 ml 662.62 ml Free Water 430 ml 100 ml IV Total 1515.14 ml 557.62 ml Tube Feeding 250 ml 630 ml Output Urine Total 750 ml 625 ml # Bowel Movements 2 Laboratory Tests Test 06/04/18 04:00 06/04/18 04:30 White Blood Count 12.5 K/UL (4.8-10.8) H Red Blood Count 3.00 M/UL (4.70-6.10) L Hemoglobin 9.1 G/DL (14.2-18.0) L Hematocrit 27.4 % (42.0-52.0) L Mean Corpuscular Volume 92 FL (80-99) Mean Corpuscular Hemoglobin 30.5 PG (27.0-31.0) Mean Corpuscular Hemoglobin Concent 33.3 G/DL (32.0-36.0) Red Cell Distribution Width 12.3 % (11.6-14.8) Platelet Count 315 K/UL (150-450) Mean Platelet Volume 6.5 FL (6.5-10.1) Neutrophils (%) (Auto) 82.6 % (45.0-75.0) H Lymphocytes (%) (Auto) 11.1 % (20.0-45.0) L Monocytes (%) (Auto) 6.1 % (1.0-10.0) Eosinophils (%) (Auto) 0.0 % (0.0-3.0) Basophils (%) (Auto) 0.2 % (0.0-2.0) Erythrocyte Sedimentation Rate 71 MM/HR (0-20) H Prothrombin Time 12.0 SEC (9.30-11.50) H Prothromb Time International Ratio 1.1 (0.9-1.1) Urine Eosinophils None seen (NONE SEEN) Sodium Level 142 MMOL/L (136-145) Potassium Level 4.1 MMOL/L (3.5-5.1) Chloride Level 108 MMOL/L (98-107) H Carbon Dioxide Level 27 MMOL/L (21-32) Anion Gap 7 mmol/L (5-15) Blood Urea Nitrogen 16 mg/dL (7-18) Creatinine 0.6 MG/DL (0.55-1.30) Estimat Glomerular Filtration Rate > 60 mL/min (>60) Glucose Level 239 MG/DL (74-106) H Calcium Level 8.8 MG/DL (8.5-10.1) Phosphorus Level 1.2 MG/DL (2.5-4.9) L Magnesium Level 2.0 MG/DL (1.8-2.4) Iron Level 64 ug/dL (50-175) Total Iron Binding Capacity 104 ug/dL (250-450) L Percent Iron Saturation 62 % (15-50) H Unsaturated Iron Binding 40 ug/dL (112-346) L Total Bilirubin 0.3 MG/DL (0.2-1.0) Aspartate Amino Transf (AST/SGOT) 26 U/L (15-37) Alanine Aminotransferase (ALT/SGPT) 33 U/L (12-78) Alkaline Phosphatase 70 U/L (46-116) C-Reactive Protein, Quantitative 11.2 mg/dL (0.00-0.90) H Total Protein 5.7 G/DL (6.4-8.2) L Albumin 2.1 G/DL (3.4-5.0) L Globulin 3.6 g/dL Albumin/Globulin Ratio 0.6 (1.0-2.7) L Amylase Level 20 U/L (25-115) L Lipase 82 U/L (73-393) Carcinoembryonic Antigen Pending Random Vancomycin Level < 2.0 ug/mL Stool Occult Blood Negative (NEGATIVE) Height (Feet): 5 Height (Inches): 10.00 Weight (Pounds): 125 Medications Current Medications Medications (Trade) Dose Ordered Sig/Cristofer Route PRN Reason Start Time Stop Time Status Last Admin Dose Admin Acetaminophen (Tylenol) 650 mg Q4H PRN ORAL fever 06/04/18 13:45 07/02/18 09:44 Albuterol/ Ipratropium (Albuterol/ Ipratropium) 3 ml Q4H PRN HHN Shortness of Breath 06/04/18 13:45 06/07/18 09:44 Chlorhexidine Gluconate (Aileen-Hex 2%) 1 applic DAILY@2000 TOPIC 06/04/18 20:00 07/02/18 19:59 06/04/18 20:42 Dextrose (Dextrose 50%) 25 ml STAT PRN IV Hypoglycemia 06/04/18 12:54 07/01/18 12:53 Dextrose (Dextrose 50%) 50 ml STAT PRN IV Hypoglycemia 06/04/18 12:54 07/01/18 12:53 Dextrose/Sodium Chloride 1,000 ml @ 50 mls/hr Q20H IV 06/04/18 12:45 07/03/18 16:59 06/04/18 14:27 Ertapenem 1 gm/ Sodium Chloride 55 ml @ 110 mls/hr Q24H IV 06/05/18 12:00 06/07/18 11:59 Heparin Sodium (Porcine) (Heparin 5000 units/ml) 5,000 units EVERY 12 HOURS SUBQ 06/04/18 21:00 07/02/18 08:59 06/04/18 20:43 Insulin Aspart (NovoLOG) Q6HR SUBQ 06/04/18 18:00 07/02/18 00:00 06/04/18 17:52 Levetiracetam (Keppra) 500 mg Q12HR NG 06/04/18 21:00 07/02/18 00:05 06/04/18 20:42 Midodrine (Pro-Amatine) 10 mg Q8HR ORAL 06/04/18 14:00 07/03/18 17:59 06/04/18 20:45 Ondansetron HCl (Zofran) 4 mg Q6H PRN IVP Nausea & Vomiting 06/04/18 15:45 07/02/18 09:44 Pantoprazole (Protonix) 40 mg EVERY 12 HOURS IVP 06/04/18 21:00 07/02/18 20:59 06/04/18 20:43 Polyethylene Glycol (Miralax) 17 gm DAILYPRN PRN ORAL Constipation 06/04/18 12:55 07/04/18 12:54 Vancomycin HCl (Vanco rx to dose) 1 ea DAILY PRN MISC . 06/05/18 09:00 07/02/18 10:14 Vancomycin/Sodium Chloride 250 ml @ 166.667 mls/hr Q12H IVPB 06/04/18 23:00 06/09/18 22:59 Assessment/Plan Problem List: (1) Encephalopathy due to metabolic factor or toxin SNOMED: 724852300 (2) MDD (major depressive disorder), recurrent episode, moderate ICD Codes: F33.1 - Major depressive disorder, recurrent, moderate SNOMED: 52934368, 040978451 Status: unchanged Assessment/Plan seroquel prn the pt lacks capacity to make decisions Katherine Orozco MD Jun 04, 2018 22:12
[2018-06-04] MEDS ORDERED: Vancomycin 750mg/NS 250ml IVPB SCH (23:00)
[2018-06-05] VITALS: BP 101/61
[2018-06-05 04:00] VITALS: BP 110/63
[2018-06-05] MEDS: Midodrine 10mg tab ORAL SCH ×3 (05:02→21:20)
[2018-06-05] MEDS: NovoLOG Insulin Flexpen SUBQ SCH ×3 (05:48→17:57)
[2018-06-05 06:43] LABS: BASOPHILS % (AUTO) 0.6 % (0.0-2.0); EOSINOPHILS % (AUTO) 1.2 % (0.0-3.0); HEMATOCRIT 28.1 % (42.0-52.0); HEMOGLOBIN 9.4 G/DL (14.2-18.0); MEAN CORPUSCULAR VOLUME 92 FL (80-99); MONOCYTES % (AUTO) 8.8 % (1.0-10.0); NEUTROPHILS % (AUTO) 68.5 % (45.0-75.0); PLATELET COUNT 366 K/UL (150-450); RED BLOOD COUNT 3.05 M/UL (4.70-6.10); RED CELL DISTRIBUTION WIDTH 12.2 % (11.6-14.8); WHITE BLOOD COUNT 14.8 K/UL (4.8-10.8)
[2018-06-05 06:52] LABS: ALANINE AMINOTRANSFERASE 38 U/L (12-78); ALBUMIN 1.9 G/DL (3.4-5.0); ALBUMIN/GLOBULIN RATIO 0.6 (1.0-2.7); ALKALINE PHOSPHATASE 63 U/L (46-116); ANION GAP 2 mmol/L (5-15); ASPARTATE AMINO TRANSFERASE 33 U/L (15-37); BILIRUBIN,TOTAL 0.2 MG/DL (0.2-1.0); BLOOD UREA NITROGEN 15 mg/dL (7-18); CALCIUM 8.4 MG/DL (8.5-10.1); CARBON DIOXIDE 31 MMOL/L (21-32); CHLORIDE 109 MMOL/L (98-107); CREATININE 0.6 MG/DL (0.55-1.30); PHOSPHORUS 1.6 MG/DL (2.5-4.9); POTASSIUM 3.7 MMOL/L (3.5-5.1); SODIUM 142 MMOL/L (136-145)
[2018-06-05 08:00] VITALS: BP 104/63
--- NOTE | 2018-06-05 08:22 | Infectious Diseases Prog Note ---
Assessment/Plan Assessment/Plan The patient is a 58-year-old unfortunate male with: Sepsis/septic shock. 06/01 - BCx NGTD 06/02 - BCx NGTD UTI (complicated) in the setting of urinary obstruction. 06/01/18 - UCx E. Coli Fever - resolved Leukocytosis - still elevated CKD versus FARHANA. PLAN: - Start Ceftriaxone - D/C - IV ertapenem #4 and vancomycin #4 06/02 SP Amikacin #1 - Monitor CBC. - Monitor BMP. - Monitor cultures (blood). - Monitor chest x-ray. We will follow the patient with you during this admission. Subjective Allergies: Coded Allergies: DIVALPROEX SODIUM (Verified Allergy, Unknown, 06/01/18) PENICILLINS (Unverified Allergy, Unknown, 06/01/18) Subjective Patient talking some. Afebrile Objective Vital Signs Last 24 Hour Vital Signs Date Time Temp Pulse Resp B/P (MAP) Pulse Ox O2 Delivery O2 Flow Rate FiO2 06/05/18 04:00 97.9 92 19 110/63 (79) 97 97.9 06/05/18 00:00 97.4 76 18 101/61 (74) 98 97.4 06/04/18 21:00 Nasal Cannula 2.0 06/04/18 20:00 Nasal Cannula 2.0 28 06/04/18 20:00 96 Nasal Cannula 2.0 28 06/04/18 20:00 80 20 Nasal Cannula 2.0 28 06/04/18 20:00 97.5 80 18 112/57 (75) 97 97.5 06/04/18 16:05 97.5 75 18 117/69 (85) 98 97.5 06/04/18 13:06 97.7 81 18 99/60 (73) 96 97.7 06/04/18 12:00 90 06/04/18 12:00 98.0 85 19 105/65 (78) 99 98.0 06/04/18 12:00 Nasal Cannula 2.0 06/04/18 11:00 80 19 110/62 (78) 98 06/04/18 10:00 80 19 105/60 (75) 98 06/04/18 09:00 75 19 98/54 (69) 98 Height (Feet): 5 Height (Inches): 10.00 Weight (Pounds): 125 Objective GEN: NAD, Laying in bed HEENT: NCAT, MMM No icterus. CHEST: CTAB, No W ABD: Soft, Feeding tube in place. HEART: RRR, S1, S2 EXTREMITIES: Left BKA. GENITOURINARY: Vargas catheter in place. Microbiology Date/Time Source Procedure Growth Status 06/02/18 11:50 Blood Blood Culture - Preliminary NO GROWTH AFTER 48 HOURS Resulted 06/02/18 11:30 Blood Blood Culture - Preliminary NO GROWTH AFTER 48 HOURS Resulted 06/03/18 09:27 Sputum Gram Stain - Final Complete 06/03/18 09:27 Sputum Sputum Culture - Final NORMAL UPPER RESPIRATORY BIENVENIDO PRESENT Complete Laboratory Tests Test 06/05/18 05:45 06/05/18 06:00 White Blood Count 14.8 K/UL (4.8-10.8) H Red Blood Count 3.05 M/UL (4.70-6.10) L Hemoglobin 9.4 G/DL (14.2-18.0) L Hematocrit 28.1 % (42.0-52.0) L Mean Corpuscular Volume 92 FL (80-99) Mean Corpuscular Hemoglobin 31.0 PG (27.0-31.0) Mean Corpuscular Hemoglobin Concent 33.6 G/DL (32.0-36.0) Red Cell Distribution Width 12.2 % (11.6-14.8) Platelet Count 366 K/UL (150-450) Mean Platelet Volume 6.2 FL (6.5-10.1) L Neutrophils (%) (Auto) 68.5 % (45.0-75.0) Lymphocytes (%) (Auto) 21.0 % (20.0-45.0) Monocytes (%) (Auto) 8.8 % (1.0-10.0) Eosinophils (%) (Auto) 1.2 % (0.0-3.0) Basophils (%) (Auto) 0.6 % (0.0-2.0) Sodium Level 142 MMOL/L (136-145) Potassium Level 3.7 MMOL/L (3.5-5.1) Chloride Level 109 MMOL/L (98-107) H Carbon Dioxide Level 31 MMOL/L (21-32) Anion Gap 2 mmol/L (5-15) L Blood Urea Nitrogen 15 mg/dL (7-18) Creatinine 0.6 MG/DL (0.55-1.30) Estimat Glomerular Filtration Rate > 60 mL/min (>60) Glucose Level 182 MG/DL (74-106) H Calcium Level 8.4 MG/DL (8.5-10.1) L Phosphorus Level 1.6 MG/DL (2.5-4.9) L Magnesium Level 1.6 MG/DL (1.8-2.4) L Total Bilirubin 0.2 MG/DL (0.2-1.0) Aspartate Amino Transf (AST/SGOT) 33 U/L (15-37) Alanine Aminotransferase (ALT/SGPT) 38 U/L (12-78) Alkaline Phosphatase 63 U/L (46-116) Total Protein 5.2 G/DL (6.4-8.2) L Albumin 1.9 G/DL (3.4-5.0) L Globulin 3.3 g/dL Albumin/Globulin Ratio 0.6 (1.0-2.7) L Urine Eosinophils Pending Current Medications Medications (Trade) Dose Ordered Sig/Cristofer Route PRN Reason Start Time Stop Time Status Last Admin Dose Admin Acetaminophen (Tylenol) 650 mg Q4H PRN ORAL fever 06/04/18 13:45 07/02/18 09:44 Albuterol/ Ipratropium (Albuterol/ Ipratropium) 3 ml Q4H PRN HHN Shortness of Breath 06/04/18 13:45 06/07/18 09:44 Chlorhexidine Gluconate (Aileen-Hex 2%) 1 applic DAILY@2000 TOPIC 06/04/18 20:00 07/02/18 19:59 06/04/18 20:42 Dextrose (Dextrose 50%) 25 ml STAT PRN IV Hypoglycemia 06/04/18 12:54 07/01/18 12:53 Dextrose (Dextrose 50%) 50 ml STAT PRN IV Hypoglycemia 06/04/18 12:54 07/01/18 12:53 Dextrose/Sodium Chloride 1,000 ml @ 50 mls/hr Q20H IV 06/04/18 12:45 07/03/18 16:59 06/04/18 14:27 Ertapenem 1 gm/ Sodium Chloride 55 ml @ 110 mls/hr Q24H IV 06/05/18 12:00 06/07/18 11:59 Heparin Sodium (Porcine) (Heparin 5000 units/ml) 5,000 units EVERY 12 HOURS SUBQ 06/04/18 21:00 07/02/18 08:59 06/04/18 20:43 Insulin Aspart (NovoLOG) Q6HR SUBQ 06/04/18 18:00 07/02/18 00:00 06/05/18 05:48 Levetiracetam (Keppra) 500 mg Q12HR NG 06/04/18 21:00 07/02/18 00:05 06/04/18 20:42 Midodrine (Pro-Amatine) 10 mg Q8HR ORAL 06/04/18 14:00 07/03/18 17:59 06/05/18 05:02 Ondansetron HCl (Zofran) 4 mg Q6H PRN IVP Nausea & Vomiting 06/04/18 15:45 07/02/18 09:44 Pantoprazole (Protonix) 40 mg EVERY 12 HOURS IVP 06/04/18 21:00 07/02/18 20:59 06/04/18 20:43 Polyethylene Glycol (Miralax) 17 gm DAILYPRN PRN ORAL Constipation 06/04/18 12:55 07/04/18 12:54 Vancomycin HCl (Vanco rx to dose) 1 ea DAILY PRN MISC . 06/05/18 09:00 07/02/18 10:14 Vancomycin/Sodium Chloride 250 ml @ 166.667 mls/hr Q12H IVPB 06/04/18 23:00 06/09/18 22:59 06/04/18 23:23 Jacek Davenport MD Jun 05, 2018 08:22
[2018-06-05] MEDS: Pantoprazole Inj IVP SCH ×2 (08:50→21:16)
[2018-06-05] MEDS: levETIRAcetam 500mg/5ml Liquid NG SCH ×2 (08:51→21:19)
[2018-06-05] MEDS: D5NS 1,000 ML IV SCH (08:52)
[2018-06-05] MEDS: Heparin 5000 units/ml inj SUBQ SCH ×2 (08:53→21:24)
[2018-06-05] MEDS ORDERED: Potassium Phosphate 30 MM in NS 275 ML IV ONE ×2 (10:00→11:00)
--- NOTE | 2018-06-05 10:00 | Nephrology Progress Note ---
Assessment/Plan Problem List: (1) Septic shock (2) ATN (acute tubular necrosis) (3) UTI (urinary tract infection) (4) feeding by Jt (5) Hypoalbuminemia Assessment OFF pressors Acute renal failure- Likely urinary retention Hypotension, on Pressors Sever Anemia UTI , Pneumonia, Amputated left leg Plan DC Hydrocortisone mag and Phos IV Transfused Hydrate ferreira Avoid Nephrotoxics monitor renal parameters Midodrine Albumin bolus as needed Med surg Subjective ROS Limited/Unobtainable: No Constitutional: Reports: weakness Objective Objective Last 24 Hour Vital Signs Date Time Temp Pulse Resp B/P (MAP) Pulse Ox O2 Delivery O2 Flow Rate FiO2 06/05/18 09:00 Nasal Cannula 2.0 06/05/18 08:00 97.8 95 19 104/63 (77) 97 97.8 06/05/18 04:00 97.9 92 19 110/63 (79) 97 97.9 06/05/18 00:00 97.4 76 18 101/61 (74) 98 97.4 06/04/18 21:00 Nasal Cannula 2.0 06/04/18 20:00 Nasal Cannula 2.0 28 06/04/18 20:00 96 Nasal Cannula 2.0 28 06/04/18 20:00 80 20 Nasal Cannula 2.0 28 06/04/18 20:00 97.5 80 18 112/57 (75) 97 97.5 06/04/18 16:05 97.5 75 18 117/69 (85) 98 97.5 06/04/18 13:06 97.7 81 18 99/60 (73) 96 97.7 06/04/18 12:00 90 06/04/18 12:00 98.0 85 19 105/65 (78) 99 98.0 06/04/18 12:00 Nasal Cannula 2.0 06/04/18 11:00 80 19 110/62 (78) 98 06/04/18 10:00 80 19 105/60 (75) 98 Intake and Output 06/04/18 06/05/18 19:00 07:00 Intake Total 510 ml 1520.000 ml Output Total 940 ml 625 ml Balance -430 ml 895.000 ml Free Water 300 ml IV Total 150 ml 500.000 ml Tube Feeding 360 ml 720 ml Output Urine Total 940 ml 625 ml # Bowel Movements 2 Laboratory Tests 06/05/18 05:45: White Blood Count 14.8H, Red Blood Count 3.05L, Hemoglobin 9.4L, Hematocrit 28.1L, Mean Corpuscular Volume 92, Mean Corpuscular Hemoglobin 31.0, Mean Corpuscular Hemoglobin Concent 33.6, Red Cell Distribution Width 12.2, Platelet Count 366, Mean Platelet Volume 6.2L, Neutrophils (%) (Auto) 68.5, Lymphocytes ( %) (Auto) 21.0, Monocytes (%) (Auto) 8.8, Eosinophils (%) (Auto) 1.2, Basophils (%) (Auto) 0.6, Sodium Level 142, Potassium Level 3.7, Chloride Level 109H, Carbon Dioxide Level 31, Anion Gap 2L, Blood Urea Nitrogen 15, Creatinine 0.6, Estimat Glomerular Filtration Rate > 60, Glucose Level 182H, Calcium Level 8.4L , Phosphorus Level 1.6L, Magnesium Level 1.6L, Total Bilirubin 0.2, Aspartate Amino Transf (AST/SGOT) 33, Alanine Aminotransferase (ALT/SGPT) 38, Alkaline Phosphatase 63, Total Protein 5.2L, Albumin 1.9L, Globulin 3.3, Albumin/ Globulin Ratio 0.6L 06/05/18 06:00: Urine Eosinophils None seen Height (Feet): 5 Height (Inches): 10.00 Weight (Pounds): 125 General Appearance: no apparent distress Cardiovascular: tachycardia Abdomen: soft, hypoactive bowel sounds Objective no other change Jose Menon MD Jun 05, 2018 10:00
[2018-06-05] MEDS: cefTRIAXone 1 GM in D5W 55 ML IVPB SCH (10:05)
--- NOTE | 2018-06-05 10:52 | Diagnostic Imaging Report ---
Indication: Cough, abnormal chest sounds Technique: One view of the chest Comparison: 06/03/2018 Findings: There is increased hazy opacity over the right lung base, likely increasing pleural fluid. Left lung and pleural space remain clear. Right subclavian central venous catheter remains Impression: Suspect increasing right-sided pleural effusion since previous exam of 2 days earlier Other stable findings as described
[2018-06-05 12:00] VITALS: BP 102/63
[2018-06-05] MEDS ORDERED: Ertapenem 1 GM in NS 55 ML IV SCH (12:00)
--- NOTE | 2018-06-05 12:02 | Pulmonology Progress Note ---
Assessment/Plan Problems: (1) Sepsis (2) UTI (urinary tract infection) (3) Hypoalbuminemia (4) feeding by Jt (5) Amputated left leg (6) HTN (hypertension) (7) Alzheimer's dementia Assessment/Plan improving continue abx check electrolytes watch WBC f/u cultures Subjective ROS Limited/Unobtainable: No Constitutional: Reports: no symptoms HEENT: Repors: no symptoms Allergies: Coded Allergies: DIVALPROEX SODIUM (Verified Allergy, Unknown, 06/01/18) PENICILLINS (Unverified Allergy, Unknown, 06/01/18) Objective Last 24 Hour Vital Signs Date Time Temp Pulse Resp B/P (MAP) Pulse Ox O2 Delivery O2 Flow Rate FiO2 06/05/18 09:24 97 Nasal Cannula 2.0 28 06/05/18 09:24 Nasal Cannula 2.0 28 06/05/18 09:24 77 20 Nasal Cannula 2.0 28 06/05/18 09:00 Nasal Cannula 2.0 06/05/18 08:00 97.8 95 19 104/63 (77) 97 97.8 06/05/18 04:00 97.9 92 19 110/63 (79) 97 97.9 06/05/18 00:00 97.4 76 18 101/61 (74) 98 97.4 06/04/18 21:00 Nasal Cannula 2.0 06/04/18 20:00 Nasal Cannula 2.0 28 06/04/18 20:00 96 Nasal Cannula 2.0 28 06/04/18 20:00 80 20 Nasal Cannula 2.0 28 06/04/18 20:00 97.5 80 18 112/57 (75) 97 97.5 06/04/18 16:05 97.5 75 18 117/69 (85) 98 97.5 06/04/18 13:06 97.7 81 18 99/60 (73) 96 97.7 Intake and Output 06/04/18 06/05/18 19:00 07:00 Intake Total 510 ml 1520.000 ml Output Total 940 ml 625 ml Balance -430 ml 895.000 ml Free Water 300 ml IV Total 150 ml 500.000 ml Tube Feeding 360 ml 720 ml Output Urine Total 940 ml 625 ml # Bowel Movements 2 General Appearance: cachetic HEENT: normocephalic Respiratory/Chest: chest wall non-tender, lungs clear Cardiovascular: normal peripheral pulses, normal rate Abdomen: normal bowel sounds Genitourinary: normal external genitalia 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 II-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 grossly normal Microbiology Date/Time Source Procedure Growth Status 06/03/18 09:27 Sputum Gram Stain - Final Complete 06/03/18 09:27 Sputum Sputum Culture - Final NORMAL UPPER RESPIRATORY BIENVENIDO PRESENT Complete Laboratory Tests 06/05/18 05:45: White Blood Count 14.8H, Red Blood Count 3.05L, Hemoglobin 9.4L, Hematocrit 28.1L, Mean Corpuscular Volume 92, Mean Corpuscular Hemoglobin 31.0, Mean Corpuscular Hemoglobin Concent 33.6, Red Cell Distribution Width 12.2, Platelet Count 366, Mean Platelet Volume 6.2L, Neutrophils (%) (Auto) 68.5, Lymphocytes ( %) (Auto) 21.0, Monocytes (%) (Auto) 8.8, Eosinophils (%) (Auto) 1.2, Basophils (%) (Auto) 0.6, Sodium Level 142, Potassium Level 3.7, Chloride Level 109H, Carbon Dioxide Level 31, Anion Gap 2L, Blood Urea Nitrogen 15, Creatinine 0.6, Estimat Glomerular Filtration Rate > 60, Glucose Level 182H, Calcium Level 8.4L , Phosphorus Level 1.6L, Magnesium Level 1.6L, Total Bilirubin 0.2, Aspartate Amino Transf (AST/SGOT) 33, Alanine Aminotransferase (ALT/SGPT) 38, Alkaline Phosphatase 63, Total Protein 5.2L, Albumin 1.9L, Globulin 3.3, Albumin/ Globulin Ratio 0.6L 06/05/18 06:00: Urine Eosinophils None seen Current Medications Medications (Trade) Dose Ordered Sig/Cristofer Route PRN Reason Start Time Stop Time Status Last Admin Dose Admin Acetaminophen (Tylenol) 650 mg Q4H PRN ORAL fever 06/04/18 13:45 07/02/18 09:44 Albuterol/ Ipratropium (Albuterol/ Ipratropium) 3 ml Q4H PRN HHN Shortness of Breath 06/04/18 13:45 06/07/18 09:44 Ceftriaxone Sodium 1 gm/ Dextrose 55 ml @ 110 mls/hr Q24H IVPB 06/05/18 10:00 06/12/18 09:59 06/05/18 10:05 Chlorhexidine Gluconate (Aileen-Hex 2%) 1 applic DAILY@2000 TOPIC 06/04/18 20:00 07/02/18 19:59 06/04/18 20:42 Dextrose (Dextrose 50%) 25 ml STAT PRN IV Hypoglycemia 06/04/18 12:54 07/01/18 12:53 Dextrose (Dextrose 50%) 50 ml STAT PRN IV Hypoglycemia 06/04/18 12:54 07/01/18 12:53 Dextrose/Sodium Chloride 1,000 ml @ 50 mls/hr Q20H IV 06/04/18 12:45 07/03/18 16:59 06/05/18 08:52 Heparin Sodium (Porcine) (Heparin 5000 units/ml) 5,000 units EVERY 12 HOURS SUBQ 06/04/18 21:00 07/02/18 08:59 06/05/18 08:53 Insulin Aspart (NovoLOG) Q6HR SUBQ 06/04/18 18:00 07/02/18 00:00 06/05/18 05:48 Levetiracetam (Keppra) 500 mg Q12HR NG 06/04/18 21:00 07/02/18 00:05 06/05/18 08:51 Midodrine (Pro-Amatine) 10 mg Q8HR ORAL 06/04/18 14:00 07/03/18 17:59 06/05/18 05:02 Ondansetron HCl (Zofran) 4 mg Q6H PRN IVP Nausea & Vomiting 06/04/18 15:45 07/02/18 09:44 Pantoprazole (Protonix) 40 mg EVERY 12 HOURS IVP 06/04/18 21:00 07/02/18 20:59 06/05/18 08:50 Polyethylene Glycol (Miralax) 17 gm DAILYPRN PRN ORAL Constipation 06/04/18 12:55 07/04/18 12:54 Potassium Phosphate 30 mm/ Sodium Chloride 285 ml @ 47.5 mls/hr ONCE ONCE IV 06/05/18 11:00 06/05/18 16:59 06/05/18 11:36 Dony Sanchez MD Jun 05, 2018 12:02
--- NOTE | 2018-06-05 13:04 | Cardiology Report ---
APPROVED REPORT EXAM: Two-dimensional and M-mode echocardiogram with Doppler and color Doppler. INDICATION SYNCOPE M-Mode DIMENSIONS IVSd1.6 (0.7-1.1cm)Left Atrium (MM)3.7 (1.6-4.0cm) LVDd3.8 (3.5-5.6cm)Aortic Root3.8 (2.0-3.7cm) PWd1.4 (0.7-1.1cm)Aortic Cusp Exc.1.9 (1.5-2.0cm) IVSs1.7 cm LVDs2.7 (2.5-4.0cm) PWs1.8 cm Technically difficult study due to dextrocardia.no apical views recorded Normal left ventricular chamber size, not all willett are visualized Left ventricular ejection fraction cannot be adequately estimated but seems to be normal in the availabe viewes No evidence of left ventricular hypertrophy. No evidence of pericardial effusion however may ahve a pericardial fat pad All other cardiac chamber sizes are within normal limits. Ortic valve not well visualized . Thickened mitral valve leaflets with normal excursion. Mitral annulus and aortic root calcification. Pulmonic valve not well visualized. Normal tricuspid valve structure. IVC at normal size with physiologic collapse. A color flow and spectral Doppler study was performed and revealed: Trace mitral regurgitation. Mitral diastolic velocities suggest reduced left ventricular relaxation c/w mild LV diastolic dysfunction (Grade I ) Tricuspid systolic velocities suggests peak right ventricular systolic pressure of 15 mmHg.
--- NOTE | 2018-06-05 13:46 | GI Progress Note ---
Assessment/Plan Problems: (1) Amputated left leg ICD Codes: Z89.612 - Acquired absence of left leg above knee SNOMED: 603211823 (2) feeding by Jt (3) Sepsis ICD Codes: A41.9 - Sepsis, unspecified organism SNOMED: 22522294, 256841805 (4) Diabetes ICD Codes: E11.9 - Type 2 diabetes mellitus without complications SNOMED: 02721222 (5) Septic shock ICD Codes: A41.9 - Sepsis, unspecified organism; R65.21 - Severe sepsis with septic shock SNOMED: 93221117 (6) Renal insufficiency ICD Codes: N28.9 - Disorder of kidney and ureter, unspecified SNOMED: 209597370, 812889689 (7) Hypoalbuminemia ICD Codes: E88.09 - Other disorders of plasma-protein metabolism, not elsewhere classified SNOMED: 236545263 Status: stable Status Narrative Discussed with Dr. Mcneil. Assessment/Plan OB stool negative cont GJFs to goal prn transfusions abx per ID PO/IV hydration fu labs supportive care dc planning The patient was seen and examined at bedside and all new and available data was reviewed in the patients chart. I agree with the above findings, impression and plan. (Patient seen earlier today. Signature stamp does not reflect patient encounter time.). - Louis Mcneil MD Subjective Gastrointestinal/Abdominal: Reports: no symptoms Subjective limited Objective Last 24 Hour Vital Signs Date Time Temp Pulse Resp B/P (MAP) Pulse Ox O2 Delivery O2 Flow Rate FiO2 06/05/18 12:00 96.9 93 19 102/63 (76) 97 96.9 06/05/18 09:24 97 Nasal Cannula 2.0 28 06/05/18 09:24 Nasal Cannula 2.0 28 06/05/18 09:24 77 20 Nasal Cannula 2.0 28 06/05/18 09:00 Nasal Cannula 2.0 06/05/18 08:00 97.8 95 19 104/63 (77) 97 97.8 06/05/18 04:00 97.9 92 19 110/63 (79) 97 97.9 06/05/18 00:00 97.4 76 18 101/61 (74) 98 97.4 06/04/18 21:00 Nasal Cannula 2.0 06/04/18 20:00 Nasal Cannula 2.0 28 06/04/18 20:00 96 Nasal Cannula 2.0 28 06/04/18 20:00 80 20 Nasal Cannula 2.0 28 06/04/18 20:00 97.5 80 18 112/57 (75) 97 97.5 06/04/18 16:05 97.5 75 18 117/69 (85) 98 97.5 Intake and Output 06/04/18 06/05/18 19:00 07:00 Intake Total 510 ml 1520.000 ml Output Total 940 ml 625 ml Balance -430 ml 895.000 ml Free Water 300 ml IV Total 150 ml 500.000 ml Tube Feeding 360 ml 720 ml Output Urine Total 940 ml 625 ml # Bowel Movements 2 Laboratory Tests Test 06/05/18 05:45 06/05/18 06:00 White Blood Count 14.8 K/UL (4.8-10.8) H Red Blood Count 3.05 M/UL (4.70-6.10) L Hemoglobin 9.4 G/DL (14.2-18.0) L Hematocrit 28.1 % (42.0-52.0) L Mean Corpuscular Volume 92 FL (80-99) Mean Corpuscular Hemoglobin 31.0 PG (27.0-31.0) Mean Corpuscular Hemoglobin Concent 33.6 G/DL (32.0-36.0) Red Cell Distribution Width 12.2 % (11.6-14.8) Platelet Count 366 K/UL (150-450) Mean Platelet Volume 6.2 FL (6.5-10.1) L Neutrophils (%) (Auto) 68.5 % (45.0-75.0) Lymphocytes (%) (Auto) 21.0 % (20.0-45.0) Monocytes (%) (Auto) 8.8 % (1.0-10.0) Eosinophils (%) (Auto) 1.2 % (0.0-3.0) Basophils (%) (Auto) 0.6 % (0.0-2.0) Sodium Level 142 MMOL/L (136-145) Potassium Level 3.7 MMOL/L (3.5-5.1) Chloride Level 109 MMOL/L (98-107) H Carbon Dioxide Level 31 MMOL/L (21-32) Anion Gap 2 mmol/L (5-15) L Blood Urea Nitrogen 15 mg/dL (7-18) Creatinine 0.6 MG/DL (0.55-1.30) Estimat Glomerular Filtration Rate > 60 mL/min (>60) Glucose Level 182 MG/DL (74-106) H Calcium Level 8.4 MG/DL (8.5-10.1) L Phosphorus Level 1.6 MG/DL (2.5-4.9) L Magnesium Level 1.6 MG/DL (1.8-2.4) L Total Bilirubin 0.2 MG/DL (0.2-1.0) Aspartate Amino Transf (AST/SGOT) 33 U/L (15-37) Alanine Aminotransferase (ALT/SGPT) 38 U/L (12-78) Alkaline Phosphatase 63 U/L (46-116) Total Protein 5.2 G/DL (6.4-8.2) L Albumin 1.9 G/DL (3.4-5.0) L Globulin 3.3 g/dL Albumin/Globulin Ratio 0.6 (1.0-2.7) L Urine Eosinophils None seen (NONE SEEN) Height (Feet): 5 Height (Inches): 10.00 Weight (Pounds): 125 General Appearance: WD/WN, no apparent distress, alert Cardiovascular: normal rate Respiratory/Chest: normal breath sounds, no respiratory distress Abdominal Exam: normal bowel sounds, non tender, soft, other Genitourinary/Rectal: other - suprapubic cathether Extremities: non-tender Finn El NP Jun 05, 2018 13:46
--- NOTE | 2018-06-05 15:12 | General Progress Note ---
Assessment/Plan Problem List: (1) Encephalopathy due to metabolic factor or toxin SNOMED: 799887974 (2) MDD (major depressive disorder), recurrent episode, moderate ICD Codes: F33.1 - Major depressive disorder, recurrent, moderate SNOMED: 95431286, 850289620 Assessment/Plan seroquel prn the pt lacks capacity to make decisions Subjective Date patient seen: Jun 05, 2018 Neurologic/Psychiatric: Reports: anxiety, depressed, emotional problems Allergies: Coded Allergies: DIVALPROEX SODIUM (Verified Allergy, Unknown, 06/01/18) PENICILLINS (Unverified Allergy, Unknown, 06/01/18) Objective Last 24 Hour Vital Signs Date Time Temp Pulse Resp B/P (MAP) Pulse Ox O2 Delivery O2 Flow Rate FiO2 06/05/18 12:00 96.9 93 19 102/63 (76) 97 96.9 06/05/18 09:24 97 Nasal Cannula 2.0 28 06/05/18 09:24 Nasal Cannula 2.0 28 06/05/18 09:24 77 20 Nasal Cannula 2.0 28 06/05/18 09:00 Nasal Cannula 2.0 06/05/18 08:00 97.8 95 19 104/63 (77) 97 97.8 06/05/18 04:00 97.9 92 19 110/63 (79) 97 97.9 06/05/18 00:00 97.4 76 18 101/61 (74) 98 97.4 06/04/18 21:00 Nasal Cannula 2.0 06/04/18 20:00 Nasal Cannula 2.0 28 06/04/18 20:00 96 Nasal Cannula 2.0 28 06/04/18 20:00 80 20 Nasal Cannula 2.0 28 06/04/18 20:00 97.5 80 18 112/57 (75) 97 97.5 06/04/18 16:05 97.5 75 18 117/69 (85) 98 97.5 Intake and Output 06/04/18 06/05/18 19:00 07:00 Intake Total 510 ml 1520.000 ml Output Total 940 ml 625 ml Balance -430 ml 895.000 ml Free Water 300 ml IV Total 150 ml 500.000 ml Tube Feeding 360 ml 720 ml Output Urine Total 940 ml 625 ml # Bowel Movements 2 Laboratory Tests 06/05/18 05:45: White Blood Count 14.8H, Red Blood Count 3.05L, Hemoglobin 9.4L, Hematocrit 28.1L, Mean Corpuscular Volume 92, Mean Corpuscular Hemoglobin 31.0, Mean Corpuscular Hemoglobin Concent 33.6, Red Cell Distribution Width 12.2, Platelet Count 366, Mean Platelet Volume 6.2L, Neutrophils (%) (Auto) 68.5, Lymphocytes ( %) (Auto) 21.0, Monocytes (%) (Auto) 8.8, Eosinophils (%) (Auto) 1.2, Basophils (%) (Auto) 0.6, Sodium Level 142, Potassium Level 3.7, Chloride Level 109H, Carbon Dioxide Level 31, Anion Gap 2L, Blood Urea Nitrogen 15, Creatinine 0.6, Estimat Glomerular Filtration Rate > 60, Glucose Level 182H, Calcium Level 8.4L , Phosphorus Level 1.6L, Magnesium Level 1.6L, Total Bilirubin 0.2, Aspartate Amino Transf (AST/SGOT) 33, Alanine Aminotransferase (ALT/SGPT) 38, Alkaline Phosphatase 63, Total Protein 5.2L, Albumin 1.9L, Globulin 3.3, Albumin/ Globulin Ratio 0.6L 06/05/18 06:00: Urine Eosinophils None seen Height (Feet): 5 Height (Inches): 10.00 Weight (Pounds): 125 General Appearance: no apparent distress, alert, confused Neurologic: depressed affect Katherine Orozco MD Jun 05, 2018 15:12
[2018-06-05 16:00] VITALS: BP 91/63
--- NOTE | 2018-06-05 18:25 | Internal Med Progress Note ---
Subjective Date of Service: Jun 05, 2018 Physician Name Marley,Manjinder Attending Physician Ean Joyce MD Current Medications Medications (Trade) Dose Ordered Sig/Cristofer Route PRN Reason Start Time Stop Time Status Last Admin Dose Admin Acetaminophen (Tylenol) 650 mg Q4H PRN ORAL fever 06/04/18 13:45 07/02/18 09:44 Albuterol/ Ipratropium (Albuterol/ Ipratropium) 3 ml Q4H PRN HHN Shortness of Breath 06/04/18 13:45 06/07/18 09:44 Ceftriaxone Sodium 1 gm/ Dextrose 55 ml @ 110 mls/hr Q24H IVPB 06/05/18 10:00 06/12/18 09:59 06/05/18 10:05 Chlorhexidine Gluconate (Aileen-Hex 2%) 1 applic DAILY@2000 TOPIC 06/04/18 20:00 07/02/18 19:59 06/04/18 20:42 Dextrose (Dextrose 50%) 25 ml STAT PRN IV Hypoglycemia 06/04/18 12:54 07/01/18 12:53 Dextrose (Dextrose 50%) 50 ml STAT PRN IV Hypoglycemia 06/04/18 12:54 07/01/18 12:53 Dextrose/Sodium Chloride 1,000 ml @ 50 mls/hr Q20H IV 06/04/18 12:45 07/03/18 16:59 06/05/18 08:52 Heparin Sodium (Porcine) (Heparin 5000 units/ml) 5,000 units EVERY 12 HOURS SUBQ 06/04/18 21:00 07/02/18 08:59 06/05/18 08:53 Insulin Aspart (NovoLOG) Q6HR SUBQ 06/04/18 18:00 07/02/18 00:00 06/05/18 17:57 Levetiracetam (Keppra) 500 mg Q12HR NG 06/04/18 21:00 07/02/18 00:05 06/05/18 08:51 Midodrine (Pro-Amatine) 10 mg Q8HR ORAL 06/04/18 14:00 07/03/18 17:59 06/05/18 14:12 Ondansetron HCl (Zofran) 4 mg Q6H PRN IVP Nausea & Vomiting 06/04/18 15:45 07/02/18 09:44 Pantoprazole (Protonix) 40 mg EVERY 12 HOURS IVP 06/04/18 21:00 07/02/18 20:59 06/05/18 08:50 Polyethylene Glycol (Miralax) 17 gm DAILYPRN PRN ORAL Constipation 06/04/18 12:55 07/04/18 12:54 Quetiapine Fumarate (SEROquel) 25 mg Q6H PRN ORAL For Anxiety 06/05/18 15:15 07/05/18 15:14 Allergies: Coded Allergies: DIVALPROEX SODIUM (Verified Allergy, Unknown, 06/01/18) PENICILLINS (Unverified Allergy, Unknown, 06/01/18) ROS Limited/Unobtainable: Yes Subjective 59 YO M admitted with Fever and gen weakness. Now UTI and sepsis. Cover for Int Med-Dr Joyce. Objective Last Vital Signs Date Time Temp Pulse Resp B/P (MAP) Pulse Ox O2 Delivery O2 Flow Rate FiO2 06/05/18 16:00 98.9 95 19 91/63 (72) 97 98.9 06/05/18 09:24 Nasal Cannula 2.0 28 Laboratory Tests Test 06/05/18 05:45 06/05/18 06:00 White Blood Count 14.8 K/UL (4.8-10.8) H Red Blood Count 3.05 M/UL (4.70-6.10) L Hemoglobin 9.4 G/DL (14.2-18.0) L Hematocrit 28.1 % (42.0-52.0) L Mean Corpuscular Volume 92 FL (80-99) Mean Corpuscular Hemoglobin 31.0 PG (27.0-31.0) Mean Corpuscular Hemoglobin Concent 33.6 G/DL (32.0-36.0) Red Cell Distribution Width 12.2 % (11.6-14.8) Platelet Count 366 K/UL (150-450) Mean Platelet Volume 6.2 FL (6.5-10.1) L Neutrophils (%) (Auto) 68.5 % (45.0-75.0) Lymphocytes (%) (Auto) 21.0 % (20.0-45.0) Monocytes (%) (Auto) 8.8 % (1.0-10.0) Eosinophils (%) (Auto) 1.2 % (0.0-3.0) Basophils (%) (Auto) 0.6 % (0.0-2.0) Sodium Level 142 MMOL/L (136-145) Potassium Level 3.7 MMOL/L (3.5-5.1) Chloride Level 109 MMOL/L (98-107) H Carbon Dioxide Level 31 MMOL/L (21-32) Anion Gap 2 mmol/L (5-15) L Blood Urea Nitrogen 15 mg/dL (7-18) Creatinine 0.6 MG/DL (0.55-1.30) Estimat Glomerular Filtration Rate > 60 mL/min (>60) Glucose Level 182 MG/DL (74-106) H Calcium Level 8.4 MG/DL (8.5-10.1) L Phosphorus Level 1.6 MG/DL (2.5-4.9) L Magnesium Level 1.6 MG/DL (1.8-2.4) L Total Bilirubin 0.2 MG/DL (0.2-1.0) Aspartate Amino Transf (AST/SGOT) 33 U/L (15-37) Alanine Aminotransferase (ALT/SGPT) 38 U/L (12-78) Alkaline Phosphatase 63 U/L (46-116) Total Protein 5.2 G/DL (6.4-8.2) L Albumin 1.9 G/DL (3.4-5.0) L Globulin 3.3 g/dL Albumin/Globulin Ratio 0.6 (1.0-2.7) L Urine Eosinophils None seen (NONE SEEN) Microbiology Date/Time Source Procedure Growth Status 06/03/18 09:27 Sputum Gram Stain - Final Complete 06/03/18 09:27 Sputum Sputum Culture - Final NORMAL UPPER RESPIRATORY BIENVENIDO PRESENT Complete Intake and Output 06/04/18 06/05/18 19:00 07:00 Intake Total 510 ml 1520.000 ml Output Total 940 ml 625 ml Balance -430 ml 895.000 ml Free Water 300 ml IV Total 150 ml 500.000 ml Tube Feeding 360 ml 720 ml Output Urine Total 940 ml 625 ml # Bowel Movements 2 Objective HYSICAL EXAMINATION: GENERAL: The patient is thin appearing, cachectic white male, in no apparent distress. HEENT: Eyes, pupils equal and responsive to light and accommodation. Extraocular movements intact. NECK: Supple without lymphadenopathy. CHEST: Nasal canula; Lungs are clear to auscultation bilaterally without wheezes or rales. CARDIOVASCULAR: Tachycardic, regular rate. S1 and S2 are normal without murmurs, rubs, or gallops. ABDOMEN: Soft, nondistended with positive bowel sounds. No evidence of hepatosplenomegaly. Currently, no rebound or guarding noted. EXTREMITIES: Negative for clubbing, cyanosis, or edema. RECTAL: Refused. GENITAL: Refused. NEUROLOGIC: Cranial nerves II through XII are grossly intact without focal deficits. Motor strength is 5/5 bilaterally. Assessment/Plan Problem List: (1) HTN (hypertension) Assessment & Plan: current hypotensive (2) Alzheimer's dementia (3) Fever (4) Altered mental status (5) UTI (urinary tract infection) Assessment & Plan: E. Coli-continue ertapenem. See ID note (6) Septic shock Assessment & Plan: Continue levophed. Manjinder Marley MD Jun 05, 2018 18:24
[2018-06-05] MEDS: Dyna-Hex 2% Top Sol 2oz TOPIC SCH (21:19)
[2018-06-06] VITALS (7 sets, daily range): BP systolic 98–124; BP diastolic 60–75
[2018-06-06] MEDS: NovoLOG Insulin Flexpen SUBQ SCH ×4 (00:05→17:52)
[2018-06-06] MEDS: D5NS 1,000 ML IV SCH ×2 (04:52→06:05)
[2018-06-06] MEDS: Midodrine 10mg tab ORAL SCH ×3 (05:24→21:18)
[2018-06-06 06:57] LABS: ALANINE AMINOTRANSFERASE 42 U/L (12-78); ALBUMIN 1.9 G/DL (3.4-5.0); ALBUMIN/GLOBULIN RATIO 0.5 (1.0-2.7); ALKALINE PHOSPHATASE 69 U/L (46-116); ANION GAP 2 mmol/L (5-15); ASPARTATE AMINO TRANSFERASE 33 U/L (15-37); BILIRUBIN,TOTAL 0.3 MG/DL (0.2-1.0); BLOOD UREA NITROGEN 9 mg/dL (7-18); CALCIUM 8.3 MG/DL (8.5-10.1); CARBON DIOXIDE 31 MMOL/L (21-32); CHLORIDE 102 MMOL/L (98-107); CREATININE 0.5 MG/DL (0.55-1.30); PHOSPHORUS 2.7 MG/DL (2.5-4.9); SODIUM 135 MMOL/L (136-145)
[2018-06-06 07:10] LABS: BASOPHILS % (AUTO) 0.6 % (0.0-2.0); EOSINOPHILS % (AUTO) 5.7 % (0.0-3.0); HEMATOCRIT 27.1 % (42.0-52.0); HEMOGLOBIN 9.2 G/DL (14.2-18.0); LYMPHOCYTES % (AUTO) 15.5 % (20.0-45.0); MEAN CORPUSCULAR VOLUME 92 FL (80-99); MONOCYTES % (AUTO) 7.9 % (1.0-10.0); NEUTROPHILS % (AUTO) 70.4 % (45.0-75.0); PLATELET COUNT 371 K/UL (150-450); RED BLOOD COUNT 2.95 M/UL (4.70-6.10); RED CELL DISTRIBUTION WIDTH 12.7 % (11.6-14.8); WHITE BLOOD COUNT 13.8 K/UL (4.8-10.8)
[2018-06-06] MEDS: Pantoprazole Inj IVP SCH (08:25)
[2018-06-06] MEDS: levETIRAcetam 500mg/5ml Liquid NG SCH ×2 (08:25→21:18)
[2018-06-06] MEDS: Heparin 5000 units/ml inj SUBQ SCH ×2 (08:26→21:18)
--- NOTE | 2018-06-06 08:47 | Nephrology Progress Note ---
Assessment/Plan Problem List: (1) Septic shock (2) ATN (acute tubular necrosis) (3) UTI (urinary tract infection) (4) feeding by Jt (5) Hypoalbuminemia Assessment OFF pressors Acute renal failure- Likely urinary retention Hypotension, on Pressors Sever Anemia UTI , Pneumonia, Amputated left leg Plan DC Hydrocortisone mag and Phos IV Transfused Hydrate ferreira Avoid Nephrotoxics monitor renal parameters Midodrine Albumin bolus as needed Med surg Subjective ROS Limited/Unobtainable: No Constitutional: Reports: malaise Objective Objective Last 24 Hour Vital Signs Date Time Temp Pulse Resp B/P (MAP) Pulse Ox O2 Delivery O2 Flow Rate FiO2 06/06/18 08:00 97.5 87 19 124/69 (87) 99 97.5 06/06/18 04:00 98.1 93 18 98/60 (73) 99 98.1 06/06/18 00:00 97.0 69 19 119/67 (84) 99 97.0 06/05/18 20:40 Nasal Cannula 2.0 06/05/18 16:00 98.9 95 19 91/63 (72) 97 98.9 06/05/18 12:00 96.9 93 19 102/63 (76) 97 96.9 06/05/18 09:24 97 Nasal Cannula 2.0 28 06/05/18 09:24 Nasal Cannula 2.0 28 06/05/18 09:24 77 20 Nasal Cannula 2.0 28 06/05/18 09:00 Nasal Cannula 2.0 Intake and Output 06/05/18 06/06/18 19:00 07:00 Intake Total 180 ml 1290 ml Output Total 900 ml 1000 ml Balance -720 ml 290 ml Free Water 300 ml IV Total 450 ml Tube Feeding 180 ml 540 ml Output Urine Total 900 ml 1000 ml # Bowel Movements 1 Laboratory Tests 06/06/18 05:15: White Blood Count 13.8H, Red Blood Count 2.95L, Hemoglobin 9.2L, Hematocrit 27.1L, Mean Corpuscular Volume 92, Mean Corpuscular Hemoglobin 31.3H, Mean Corpuscular Hemoglobin Concent 34.0, Red Cell Distribution Width 12.7, Platelet Count 371, Mean Platelet Volume 6.3L, Neutrophils (%) (Auto) 70.4, Lymphocytes ( %) (Auto) 15.5L, Monocytes (%) (Auto) 7.9, Eosinophils (%) (Auto) 5.7H, Basophils (%) (Auto) 0.6, Erythrocyte Sedimentation Rate [Pending], Sodium Level 135L, Potassium Level 4.0, Chloride Level 102, Carbon Dioxide Level 31, Anion Gap 2L, Blood Urea Nitrogen 9, Creatinine 0.5L, Estimat Glomerular Filtration Rate > 60, Glucose Level 168H, Calcium Level 8.3L, Phosphorus Level 2.7, Magnesium Level 1.9, Total Bilirubin 0.3, Aspartate Amino Transf (AST/SGOT ) 33, Alanine Aminotransferase (ALT/SGPT) 42, Alkaline Phosphatase 69, C- Reactive Protein, Quantitative 6.3H, Total Protein 5.4L, Albumin 1.9L, Globulin 3.5, Albumin/Globulin Ratio 0.5L Height (Feet): 5 Height (Inches): 10.00 Weight (Pounds): 154 General Appearance: no apparent distress Objective no other change Jose Menon MD Jun 06, 2018 08:47
[2018-06-06] MEDS: cefTRIAXone 1 GM in D5W 55 ML IVPB SCH (09:10)
--- NOTE | 2018-06-06 11:20 | Infectious Diseases Prog Note ---
Assessment/Plan Assessment/Plan The patient is a 58-year-old unfortunate male with: Sepsis/septic shock. 06/01 - BCx NGTD 06/02 - BCx NGTD UTI (complicated) in the setting of urinary obstruction. 06/01/18 - UCx E. Coli Fever - resolved Leukocytosis - still elevated CKD versus FARHANA. PLAN: - Continue Ceftriaxone #2/7 - 06/05 SP - IV ertapenem #4 and vancomycin #4 06/02 SP Amikacin #1 - Monitor CBC. - Monitor BMP. - Monitor cultures (blood). - Monitor chest x-ray. We will follow the patient with you during this admission. Subjective Allergies: Coded Allergies: DIVALPROEX SODIUM (Verified Allergy, Unknown, 06/01/18) PENICILLINS (Unverified Allergy, Unknown, 06/01/18) Subjective Patient awake and interactive Afebrile Objective Vital Signs Last 24 Hour Vital Signs Date Time Temp Pulse Resp B/P (MAP) Pulse Ox O2 Delivery O2 Flow Rate FiO2 06/06/18 09:41 79 18 Nasal Cannula 2.0 28 06/06/18 09:41 Nasal Cannula 2.0 28 06/06/18 09:41 97 Nasal Cannula 2.0 28 06/06/18 08:55 Nasal Cannula 2.0 06/06/18 08:00 97.5 87 19 124/69 (87) 99 97.5 06/06/18 04:00 98.1 93 18 98/60 (73) 99 98.1 06/06/18 00:00 97.0 69 19 119/67 (84) 99 97.0 06/05/18 20:40 Nasal Cannula 2.0 06/05/18 16:00 98.9 95 19 91/63 (72) 97 98.9 06/05/18 12:00 96.9 93 19 102/63 (76) 97 96.9 Height (Feet): 5 Height (Inches): 10.00 Weight (Pounds): 154 Objective GEN: NAD, comfortable HEENT: NCAT, MMM No icterus. CHEST: CTAB, No W ABD: Soft, Feeding tube in place. HEART: RRR, S1, S2 EXTREMITIES: Left BKA. GENITOURINARY: Vargas catheter in place. Laboratory Tests Test 06/06/18 05:15 White Blood Count 13.8 K/UL (4.8-10.8) H Red Blood Count 2.95 M/UL (4.70-6.10) L Hemoglobin 9.2 G/DL (14.2-18.0) L Hematocrit 27.1 % (42.0-52.0) L Mean Corpuscular Volume 92 FL (80-99) Mean Corpuscular Hemoglobin 31.3 PG (27.0-31.0) H Mean Corpuscular Hemoglobin Concent 34.0 G/DL (32.0-36.0) Red Cell Distribution Width 12.7 % (11.6-14.8) Platelet Count 371 K/UL (150-450) Mean Platelet Volume 6.3 FL (6.5-10.1) L Neutrophils (%) (Auto) 70.4 % (45.0-75.0) Lymphocytes (%) (Auto) 15.5 % (20.0-45.0) L Monocytes (%) (Auto) 7.9 % (1.0-10.0) Eosinophils (%) (Auto) 5.7 % (0.0-3.0) H Basophils (%) (Auto) 0.6 % (0.0-2.0) Erythrocyte Sedimentation Rate 56 MM/HR (0-20) H Sodium Level 135 MMOL/L (136-145) L Potassium Level 4.0 MMOL/L (3.5-5.1) Chloride Level 102 MMOL/L (98-107) Carbon Dioxide Level 31 MMOL/L (21-32) Anion Gap 2 mmol/L (5-15) L Blood Urea Nitrogen 9 mg/dL (7-18) Creatinine 0.5 MG/DL (0.55-1.30) L Estimat Glomerular Filtration Rate > 60 mL/min (>60) Glucose Level 168 MG/DL (74-106) H Calcium Level 8.3 MG/DL (8.5-10.1) L Phosphorus Level 2.7 MG/DL (2.5-4.9) Magnesium Level 1.9 MG/DL (1.8-2.4) Total Bilirubin 0.3 MG/DL (0.2-1.0) Aspartate Amino Transf (AST/SGOT) 33 U/L (15-37) Alanine Aminotransferase (ALT/SGPT) 42 U/L (12-78) Alkaline Phosphatase 69 U/L (46-116) C-Reactive Protein, Quantitative 6.3 mg/dL (0.00-0.90) H Total Protein 5.4 G/DL (6.4-8.2) L Albumin 1.9 G/DL (3.4-5.0) L Globulin 3.5 g/dL Albumin/Globulin Ratio 0.5 (1.0-2.7) L Current Medications Medications (Trade) Dose Ordered Sig/Cristofer Route PRN Reason Start Time Stop Time Status Last Admin Dose Admin Acetaminophen (Tylenol) 650 mg Q4H PRN ORAL fever 06/04/18 13:45 07/02/18 09:44 Albuterol/ Ipratropium (Albuterol/ Ipratropium) 3 ml Q4H PRN HHN Shortness of Breath 06/04/18 13:45 06/07/18 09:44 Ceftriaxone Sodium 1 gm/ Dextrose 55 ml @ 110 mls/hr Q24H IVPB 06/05/18 10:00 06/12/18 09:59 06/06/18 09:10 Chlorhexidine Gluconate (Aileen-Hex 2%) 1 applic DAILY@2000 TOPIC 06/04/18 20:00 07/02/18 19:59 06/05/18 21:19 Dextrose (Dextrose 50%) 25 ml STAT PRN IV Hypoglycemia 06/04/18 12:54 07/01/18 12:53 Dextrose (Dextrose 50%) 50 ml STAT PRN IV Hypoglycemia 06/04/18 12:54 07/01/18 12:53 Heparin Sodium (Porcine) (Heparin 5000 units/ml) 5,000 units EVERY 12 HOURS SUBQ 06/04/18 21:00 07/02/18 08:59 06/06/18 08:26 Insulin Aspart (NovoLOG) Q6HR SUBQ 06/04/18 18:00 07/02/18 00:00 06/06/18 05:24 Lansoprazole (Prevacid) 30 mg DAILY GT 06/07/18 09:00 07/07/18 08:59 Levetiracetam (Keppra) 500 mg Q12HR NG 06/04/18 21:00 07/02/18 00:05 06/06/18 08:25 Midodrine (Pro-Amatine) 10 mg Q8HR ORAL 06/04/18 14:00 07/03/18 17:59 06/06/18 05:24 Ondansetron HCl (Zofran) 4 mg Q6H PRN IVP Nausea & Vomiting 06/04/18 15:45 07/02/18 09:44 Polyethylene Glycol (Miralax) 17 gm DAILYPRN PRN ORAL Constipation 06/04/18 12:55 07/04/18 12:54 Quetiapine Fumarate (SEROquel) 25 mg Q6H PRN ORAL For Anxiety 06/05/18 15:15 07/05/18 15:14 Jacek Davenport MD Jun 06, 2018 11:20
--- NOTE | 2018-06-06 13:27 | Pulmonology Progress Note ---
Assessment/Plan Problems: (1) Sepsis (2) UTI (urinary tract infection) (3) Hypoalbuminemia (4) feeding by Jt (5) Amputated left leg (6) HTN (hypertension) (7) Alzheimer's dementia Assessment/Plan wbc still high confused improving continue abx check electrolytes watch WBC f/u cultures dc in one or two days Subjective ROS Limited/Unobtainable: No Constitutional: Reports: no symptoms HEENT: Repors: no symptoms Respiratory: Reports: no symptoms Cardiovascular: Reports: no symptoms Allergies: Coded Allergies: DIVALPROEX SODIUM (Verified Allergy, Unknown, 06/01/18) PENICILLINS (Unverified Allergy, Unknown, 06/01/18) Objective Last 24 Hour Vital Signs Date Time Temp Pulse Resp B/P (MAP) Pulse Ox O2 Delivery O2 Flow Rate FiO2 06/06/18 12:00 97.7 85 20 118/66 (83) 98 97.7 06/06/18 09:41 79 18 Nasal Cannula 2.0 28 06/06/18 09:41 Nasal Cannula 2.0 28 06/06/18 09:41 97 Nasal Cannula 2.0 28 06/06/18 08:55 Nasal Cannula 2.0 06/06/18 08:00 97.5 87 19 124/69 (87) 99 97.5 06/06/18 04:00 98.1 93 18 98/60 (73) 99 98.1 06/06/18 00:00 97.0 69 19 119/67 (84) 99 97.0 06/05/18 20:40 Nasal Cannula 2.0 06/05/18 16:00 98.9 95 19 91/63 (72) 97 98.9 Intake and Output 06/05/18 06/06/18 19:00 07:00 Intake Total 180 ml 1290 ml Output Total 900 ml 1000 ml Balance -720 ml 290 ml Free Water 300 ml IV Total 450 ml Tube Feeding 180 ml 540 ml Output Urine Total 900 ml 1000 ml # Bowel Movements 1 General Appearance: WD/WN HEENT: normocephalic Respiratory/Chest: chest wall non-tender, lungs clear Cardiovascular: normal peripheral pulses, normal rate Abdomen: normal bowel sounds, no organomegaly Extremities: no cyanosis Skin: no ulcers Laboratory Tests 06/06/18 05:15: White Blood Count 13.8H, Red Blood Count 2.95L, Hemoglobin 9.2L, Hematocrit 27.1L, Mean Corpuscular Volume 92, Mean Corpuscular Hemoglobin 31.3H, Mean Corpuscular Hemoglobin Concent 34.0, Red Cell Distribution Width 12.7, Platelet Count 371, Mean Platelet Volume 6.3L, Neutrophils (%) (Auto) 70.4, Lymphocytes ( %) (Auto) 15.5L, Monocytes (%) (Auto) 7.9, Eosinophils (%) (Auto) 5.7H, Basophils (%) (Auto) 0.6, Erythrocyte Sedimentation Rate 56H, Sodium Level 135L , Potassium Level 4.0, Chloride Level 102, Carbon Dioxide Level 31, Anion Gap 2L , Blood Urea Nitrogen 9, Creatinine 0.5L, Estimat Glomerular Filtration Rate > 60, Glucose Level 168H, Calcium Level 8.3L, Phosphorus Level 2.7, Magnesium Level 1.9, Total Bilirubin 0.3, Aspartate Amino Transf (AST/SGOT) 33, Alanine Aminotransferase (ALT/SGPT) 42, Alkaline Phosphatase 69, C-Reactive Protein, Quantitative 6.3H, Total Protein 5.4L, Albumin 1.9L, Globulin 3.5, Albumin/ Globulin Ratio 0.5L Current Medications Medications (Trade) Dose Ordered Sig/Cristofer Route PRN Reason Start Time Stop Time Status Last Admin Dose Admin Acetaminophen (Tylenol) 650 mg Q4H PRN ORAL fever 06/04/18 13:45 07/02/18 09:44 Albuterol/ Ipratropium (Albuterol/ Ipratropium) 3 ml Q4H PRN HHN Shortness of Breath 06/04/18 13:45 06/07/18 09:44 Ceftriaxone Sodium 1 gm/ Dextrose 55 ml @ 110 mls/hr Q24H IVPB 06/05/18 10:00 06/12/18 09:59 06/06/18 09:10 Chlorhexidine Gluconate (Aileen-Hex 2%) 1 applic DAILY@1999 TOPIC 06/04/18 20:00 07/02/18 19:59 06/05/18 21:19 Dextrose (Dextrose 50%) 25 ml STAT PRN IV Hypoglycemia 06/04/18 12:54 07/01/18 12:53 Dextrose (Dextrose 50%) 50 ml STAT PRN IV Hypoglycemia 06/04/18 12:54 07/01/18 12:53 Heparin Sodium (Porcine) (Heparin 5000 units/ml) 5,000 units EVERY 12 HOURS SUBQ 06/04/18 21:00 07/02/18 08:59 06/06/18 08:26 Insulin Aspart (NovoLOG) Q6HR SUBQ 06/04/18 18:00 07/02/18 00:00 06/06/18 12:12 Lansoprazole (Prevacid) 30 mg DAILY GT 06/07/18 09:00 07/07/18 08:59 Levetiracetam (Keppra) 500 mg Q12HR NG 06/04/18 21:00 07/02/18 00:05 06/06/18 08:25 Midodrine (Pro-Amatine) 10 mg Q8HR ORAL 06/04/18 14:00 07/03/18 17:59 06/06/18 05:24 Ondansetron HCl (Zofran) 4 mg Q6H PRN IVP Nausea & Vomiting 06/04/18 15:45 07/02/18 09:44 Polyethylene Glycol (Miralax) 17 gm DAILYPRN PRN ORAL Constipation 06/04/18 12:55 07/04/18 12:54 Quetiapine Fumarate (SEROquel) 25 mg Q6H PRN ORAL For Anxiety 06/05/18 15:15 07/05/18 15:14 Dony Sanchez MD Jun 06, 2018 13:27
--- NOTE | 2018-06-06 14:25 | General Surgery Progress Note ---
General Surgery-Progress Note Subjective Procedure Performed right subclavian central venous catheter insertion Symptoms: improved Additional Comments leukocytosis improving Objective Last 24 Hour Vital Signs Date Time Temp Pulse Resp B/P (MAP) Pulse Ox O2 Delivery O2 Flow Rate FiO2 06/06/18 14:17 85 109/70 (83) 06/06/18 12:00 97.7 85 20 118/66 (83) 98 97.7 06/06/18 09:41 79 18 Nasal Cannula 2.0 28 06/06/18 09:41 Nasal Cannula 2.0 28 06/06/18 09:41 97 Nasal Cannula 2.0 28 06/06/18 08:55 Nasal Cannula 2.0 06/06/18 08:00 97.5 87 19 124/69 (87) 99 97.5 06/06/18 04:00 98.1 93 18 98/60 (73) 99 98.1 06/06/18 00:00 97.0 69 19 119/67 (84) 99 97.0 06/05/18 20:40 Nasal Cannula 2.0 06/05/18 16:00 98.9 95 19 91/63 (72) 97 98.9 I&O Intake and Output 06/05/18 06/06/18 19:00 07:00 Intake Total 180 ml 1290 ml Output Total 900 ml 1000 ml Balance -720 ml 290 ml Free Water 300 ml IV Total 450 ml Tube Feeding 180 ml 540 ml Output Urine Total 900 ml 1000 ml # Bowel Movements 1 Dressing: dry Wound: clean, dry Drains: other Cardiovascular: RSR Respiratory: clear Abdomen: soft, flat, non-tender, present bowel sounds, other Extremities: other Laboratory Tests Test 06/06/18 05:15 White Blood Count 13.8 K/UL (4.8-10.8) H Red Blood Count 2.95 M/UL (4.70-6.10) L Hemoglobin 9.2 G/DL (14.2-18.0) L Hematocrit 27.1 % (42.0-52.0) L Mean Corpuscular Volume 92 FL (80-99) Mean Corpuscular Hemoglobin 31.3 PG (27.0-31.0) H Mean Corpuscular Hemoglobin Concent 34.0 G/DL (32.0-36.0) Red Cell Distribution Width 12.7 % (11.6-14.8) Platelet Count 371 K/UL (150-450) Mean Platelet Volume 6.3 FL (6.5-10.1) L Neutrophils (%) (Auto) 70.4 % (45.0-75.0) Lymphocytes (%) (Auto) 15.5 % (20.0-45.0) L Monocytes (%) (Auto) 7.9 % (1.0-10.0) Eosinophils (%) (Auto) 5.7 % (0.0-3.0) H Basophils (%) (Auto) 0.6 % (0.0-2.0) Erythrocyte Sedimentation Rate 56 MM/HR (0-20) H Sodium Level 135 MMOL/L (136-145) L Potassium Level 4.0 MMOL/L (3.5-5.1) Chloride Level 102 MMOL/L (98-107) Carbon Dioxide Level 31 MMOL/L (21-32) Anion Gap 2 mmol/L (5-15) L Blood Urea Nitrogen 9 mg/dL (7-18) Creatinine 0.5 MG/DL (0.55-1.30) L Estimat Glomerular Filtration Rate > 60 mL/min (>60) Glucose Level 168 MG/DL (74-106) H Calcium Level 8.3 MG/DL (8.5-10.1) L Phosphorus Level 2.7 MG/DL (2.5-4.9) Magnesium Level 1.9 MG/DL (1.8-2.4) Total Bilirubin 0.3 MG/DL (0.2-1.0) Aspartate Amino Transf (AST/SGOT) 33 U/L (15-37) Alanine Aminotransferase (ALT/SGPT) 42 U/L (12-78) Alkaline Phosphatase 69 U/L (46-116) C-Reactive Protein, Quantitative 6.3 mg/dL (0.00-0.90) H Total Protein 5.4 G/DL (6.4-8.2) L Albumin 1.9 G/DL (3.4-5.0) L Globulin 3.5 g/dL Albumin/Globulin Ratio 0.5 (1.0-2.7) L Plan Problems: (1) Sepsis Assessment & Plan: Patient known to me. Seen yesterday for urgent central line placement given sepsis and requirements during work up noted recent surgical placed j tube. also urosepsis. awake and responsive. he is unsure of what happened but is able to follow commands. records reviewed. abdomen examined. midline wound c/d/i with surgical milind. no signs of infection or complication. j tube is a red rubber catheter and patent/functional. KUB reviewed. -unlikely etiology of sepsis recent surgery and feeding tube. likely urosepsis -okay to use feeding tube -surgical milind from midline removed at bedside today. -cont current care and management thank you Shiv Horvath Jun 06, 2018 14:25
--- NOTE | 2018-06-06 14:28 | GI Progress Note ---
Assessment/Plan Problems: (1) Amputated left leg ICD Codes: Z89.612 - Acquired absence of left leg above knee SNOMED: 765931811 (2) feeding by Jt (3) Sepsis ICD Codes: A41.9 - Sepsis, unspecified organism SNOMED: 71488416, 887993535 (4) Diabetes ICD Codes: E11.9 - Type 2 diabetes mellitus without complications SNOMED: 10677420 (5) Septic shock ICD Codes: A41.9 - Sepsis, unspecified organism; R65.21 - Severe sepsis with septic shock SNOMED: 42320539 (6) Renal insufficiency ICD Codes: N28.9 - Disorder of kidney and ureter, unspecified SNOMED: 075719285, 310688022 (7) Hypoalbuminemia ICD Codes: E88.09 - Other disorders of plasma-protein metabolism, not elsewhere classified SNOMED: 337180250 Status: stable Status Narrative Discussed with Dr. Mcneil. Assessment/Plan OB stool negative cont GJFs to goal prn transfusions abx per ID PO/IV hydration fu labs supportive care dc planning The patient was seen and examined at bedside and all new and available data was reviewed in the patients chart. I agree with the above findings, impression and plan. (Patient seen earlier today. Signature stamp does not reflect patient encounter time.). - Louis Mcneil MD Subjective Subjective limited Objective Last 24 Hour Vital Signs Date Time Temp Pulse Resp B/P (MAP) Pulse Ox O2 Delivery O2 Flow Rate FiO2 06/06/18 14:17 85 109/70 (83) 06/06/18 12:00 97.7 85 20 118/66 (83) 98 97.7 06/06/18 09:41 79 18 Nasal Cannula 2.0 28 06/06/18 09:41 Nasal Cannula 2.0 28 06/06/18 09:41 97 Nasal Cannula 2.0 28 06/06/18 08:55 Nasal Cannula 2.0 06/06/18 08:00 97.5 87 19 124/69 (87) 99 97.5 06/06/18 04:00 98.1 93 18 98/60 (73) 99 98.1 06/06/18 00:00 97.0 69 19 119/67 (84) 99 97.0 06/05/18 20:40 Nasal Cannula 2.0 06/05/18 16:00 98.9 95 19 91/63 (72) 97 98.9 Intake and Output 06/05/18 06/06/18 19:00 07:00 Intake Total 180 ml 1290 ml Output Total 900 ml 1000 ml Balance -720 ml 290 ml Free Water 300 ml IV Total 450 ml Tube Feeding 180 ml 540 ml Output Urine Total 900 ml 1000 ml # Bowel Movements 1 Laboratory Tests Test 06/06/18 05:15 White Blood Count 13.8 K/UL (4.8-10.8) H Red Blood Count 2.95 M/UL (4.70-6.10) L Hemoglobin 9.2 G/DL (14.2-18.0) L Hematocrit 27.1 % (42.0-52.0) L Mean Corpuscular Volume 92 FL (80-99) Mean Corpuscular Hemoglobin 31.3 PG (27.0-31.0) H Mean Corpuscular Hemoglobin Concent 34.0 G/DL (32.0-36.0) Red Cell Distribution Width 12.7 % (11.6-14.8) Platelet Count 371 K/UL (150-450) Mean Platelet Volume 6.3 FL (6.5-10.1) L Neutrophils (%) (Auto) 70.4 % (45.0-75.0) Lymphocytes (%) (Auto) 15.5 % (20.0-45.0) L Monocytes (%) (Auto) 7.9 % (1.0-10.0) Eosinophils (%) (Auto) 5.7 % (0.0-3.0) H Basophils (%) (Auto) 0.6 % (0.0-2.0) Erythrocyte Sedimentation Rate 56 MM/HR (0-20) H Sodium Level 135 MMOL/L (136-145) L Potassium Level 4.0 MMOL/L (3.5-5.1) Chloride Level 102 MMOL/L (98-107) Carbon Dioxide Level 31 MMOL/L (21-32) Anion Gap 2 mmol/L (5-15) L Blood Urea Nitrogen 9 mg/dL (7-18) Creatinine 0.5 MG/DL (0.55-1.30) L Estimat Glomerular Filtration Rate > 60 mL/min (>60) Glucose Level 168 MG/DL (74-106) H Calcium Level 8.3 MG/DL (8.5-10.1) L Phosphorus Level 2.7 MG/DL (2.5-4.9) Magnesium Level 1.9 MG/DL (1.8-2.4) Total Bilirubin 0.3 MG/DL (0.2-1.0) Aspartate Amino Transf (AST/SGOT) 33 U/L (15-37) Alanine Aminotransferase (ALT/SGPT) 42 U/L (12-78) Alkaline Phosphatase 69 U/L (46-116) C-Reactive Protein, Quantitative 6.3 mg/dL (0.00-0.90) H Total Protein 5.4 G/DL (6.4-8.2) L Albumin 1.9 G/DL (3.4-5.0) L Globulin 3.5 g/dL Albumin/Globulin Ratio 0.5 (1.0-2.7) L Height (Feet): 5 Height (Inches): 10.00 Weight (Pounds): 154 General Appearance: WD/WN, no apparent distress, alert Cardiovascular: normal rate Respiratory/Chest: normal breath sounds, no respiratory distress Abdominal Exam: normal bowel sounds, non tender, soft, other - GJ Extremities: non-tender Finn El NP Jun 06, 2018 14:28
--- NOTE | 2018-06-06 18:13 | Internal Med Progress Note ---
Subjective Date of Service: Jun 06, 2018 Physician Name MarleyManjinder Attending Physician Ean Joyce MD Current Medications Medications (Trade) Dose Ordered Sig/Cristofer Route PRN Reason Start Time Stop Time Status Last Admin Dose Admin Acetaminophen (Tylenol) 650 mg Q4H PRN ORAL fever 06/04/18 13:45 07/02/18 09:44 Albuterol/ Ipratropium (Albuterol/ Ipratropium) 3 ml Q4H PRN HHN Shortness of Breath 06/04/18 13:45 06/07/18 09:44 Ceftriaxone Sodium 1 gm/ Dextrose 55 ml @ 110 mls/hr Q24H IVPB 06/05/18 10:00 06/12/18 09:59 06/06/18 09:10 Chlorhexidine Gluconate (Aileen-Hex 2%) 1 applic DAILY@2000 TOPIC 06/04/18 20:00 07/02/18 19:59 06/05/18 21:19 Dextrose (Dextrose 50%) 25 ml STAT PRN IV Hypoglycemia 06/04/18 12:54 07/01/18 12:53 Dextrose (Dextrose 50%) 50 ml STAT PRN IV Hypoglycemia 06/04/18 12:54 07/01/18 12:53 Heparin Sodium (Porcine) (Heparin 5000 units/ml) 5,000 units EVERY 12 HOURS SUBQ 06/04/18 21:00 07/02/18 08:59 06/06/18 08:26 Insulin Aspart (NovoLOG) Q6HR SUBQ 06/04/18 18:00 07/02/18 00:00 06/06/18 17:52 Lansoprazole (Prevacid) 30 mg DAILY GT 06/07/18 09:00 07/07/18 08:59 Levetiracetam (Keppra) 500 mg Q12HR NG 06/04/18 21:00 07/02/18 00:05 06/06/18 08:25 Midodrine (Pro-Amatine) 10 mg Q8HR ORAL 06/04/18 14:00 07/03/18 17:59 06/06/18 14:14 Ondansetron HCl (Zofran) 4 mg Q6H PRN IVP Nausea & Vomiting 06/04/18 15:45 07/02/18 09:44 Polyethylene Glycol (Miralax) 17 gm DAILYPRN PRN ORAL Constipation 06/04/18 12:55 07/04/18 12:54 Quetiapine Fumarate (SEROquel) 25 mg Q6H PRN ORAL For Anxiety 06/05/18 15:15 07/05/18 15:14 Allergies: Coded Allergies: DIVALPROEX SODIUM (Verified Allergy, Unknown, 06/01/18) PENICILLINS (Unverified Allergy, Unknown, 06/01/18) ROS Limited/Unobtainable: Yes Subjective 59 YO M admitted with Fever and gen weakness. Now UTI and sepsis. Cover for Int Med-Dr Joyce. Objective Last Vital Signs Date Time Temp Pulse Resp B/P (MAP) Pulse Ox O2 Delivery O2 Flow Rate FiO2 06/06/18 16:00 97.7 82 18 123/75 (91) 100 97.7 06/06/18 09:41 Nasal Cannula 2.0 28 Laboratory Tests Test 06/06/18 05:15 White Blood Count 13.8 K/UL (4.8-10.8) H Red Blood Count 2.95 M/UL (4.70-6.10) L Hemoglobin 9.2 G/DL (14.2-18.0) L Hematocrit 27.1 % (42.0-52.0) L Mean Corpuscular Volume 92 FL (80-99) Mean Corpuscular Hemoglobin 31.3 PG (27.0-31.0) H Mean Corpuscular Hemoglobin Concent 34.0 G/DL (32.0-36.0) Red Cell Distribution Width 12.7 % (11.6-14.8) Platelet Count 371 K/UL (150-450) Mean Platelet Volume 6.3 FL (6.5-10.1) L Neutrophils (%) (Auto) 70.4 % (45.0-75.0) Lymphocytes (%) (Auto) 15.5 % (20.0-45.0) L Monocytes (%) (Auto) 7.9 % (1.0-10.0) Eosinophils (%) (Auto) 5.7 % (0.0-3.0) H Basophils (%) (Auto) 0.6 % (0.0-2.0) Erythrocyte Sedimentation Rate 56 MM/HR (0-20) H Sodium Level 135 MMOL/L (136-145) L Potassium Level 4.0 MMOL/L (3.5-5.1) Chloride Level 102 MMOL/L (98-107) Carbon Dioxide Level 31 MMOL/L (21-32) Anion Gap 2 mmol/L (5-15) L Blood Urea Nitrogen 9 mg/dL (7-18) Creatinine 0.5 MG/DL (0.55-1.30) L Estimat Glomerular Filtration Rate > 60 mL/min (>60) Glucose Level 168 MG/DL (74-106) H Calcium Level 8.3 MG/DL (8.5-10.1) L Phosphorus Level 2.7 MG/DL (2.5-4.9) Magnesium Level 1.9 MG/DL (1.8-2.4) Total Bilirubin 0.3 MG/DL (0.2-1.0) Aspartate Amino Transf (AST/SGOT) 33 U/L (15-37) Alanine Aminotransferase (ALT/SGPT) 42 U/L (12-78) Alkaline Phosphatase 69 U/L (46-116) C-Reactive Protein, Quantitative 6.3 mg/dL (0.00-0.90) H Total Protein 5.4 G/DL (6.4-8.2) L Albumin 1.9 G/DL (3.4-5.0) L Globulin 3.5 g/dL Albumin/Globulin Ratio 0.5 (1.0-2.7) L Intake and Output 06/05/18 06/06/18 19:00 07:00 Intake Total 180 ml 1290 ml Output Total 900 ml 1000 ml Balance -720 ml 290 ml Free Water 300 ml IV Total 450 ml Tube Feeding 180 ml 540 ml Output Urine Total 900 ml 1000 ml # Bowel Movements 1 Objective HYSICAL EXAMINATION: GENERAL: The patient is thin appearing, cachectic white male, in no apparent distress. HEENT: Eyes, pupils equal and responsive to light and accommodation. Extraocular movements intact. NECK: Supple without lymphadenopathy. CHEST: Nasal canula; Lungs are clear to auscultation bilaterally without wheezes or rales. CARDIOVASCULAR: Tachycardic, regular rate. S1 and S2 are normal without murmurs, rubs, or gallops. ABDOMEN: Soft, nondistended with positive bowel sounds. No evidence of hepatosplenomegaly. Currently, no rebound or guarding noted. EXTREMITIES: Negative for clubbing, cyanosis, or edema. RECTAL: Refused. GENITAL: Refused. NEUROLOGIC: Cranial nerves II through XII are grossly intact without focal deficits. Motor strength is 5/5 bilaterally. Assessment/Plan Problem List: (1) HTN (hypertension) Assessment & Plan: current hypotensive (2) Alzheimer's dementia (3) Fever (4) Altered mental status (5) UTI (urinary tract infection) Assessment & Plan: E. Coli-continue ertapenem. See ID note (6) Septic shock Assessment & Plan: Continue levophed. Status: progressing Manjinder Marley MD Jun 06, 2018 18:13
[2018-06-06] MEDS: Dyna-Hex 2% Top Sol 2oz TOPIC SCH (21:18)
--- NOTE | 2018-06-06 21:49 | General Progress Note ---
Assessment/Plan Problem List: (1) Encephalopathy due to metabolic factor or toxin SNOMED: 924970625 (2) MDD (major depressive disorder), recurrent episode, moderate ICD Codes: F33.1 - Major depressive disorder, recurrent, moderate SNOMED: 94517264, 025871428 Assessment/Plan seroquel prn the pt lacks capacity to make decisions Subjective Date patient seen: Jun 06, 2018 Neurologic/Psychiatric: Reports: anxiety, depressed, emotional problems Allergies: Coded Allergies: DIVALPROEX SODIUM (Verified Allergy, Unknown, 06/01/18) PENICILLINS (Unverified Allergy, Unknown, 06/01/18) Objective Last 24 Hour Vital Signs Date Time Temp Pulse Resp B/P (MAP) Pulse Ox O2 Delivery O2 Flow Rate FiO2 06/06/18 20:00 97.2 79 19 111/75 (87) 97 97.2 06/06/18 19:14 96 Nasal Cannula 2.0 28 06/06/18 19:14 77 19 Nasal Cannula 2.0 28 06/06/18 19:14 Nasal Cannula 2.0 28 06/06/18 16:00 97.7 82 18 123/75 (91) 100 97.7 06/06/18 14:17 85 109/70 (83) 06/06/18 12:00 97.7 85 20 118/66 (83) 98 97.7 06/06/18 09:41 79 18 Nasal Cannula 2.0 28 06/06/18 09:41 Nasal Cannula 2.0 28 06/06/18 09:41 97 Nasal Cannula 2.0 28 06/06/18 08:55 Nasal Cannula 2.0 06/06/18 08:00 97.5 87 19 124/69 (87) 99 97.5 06/06/18 04:00 98.1 93 18 98/60 (73) 99 98.1 06/06/18 00:00 97.0 69 19 119/67 (84) 99 97.0 Intake and Output 06/05/18 06/06/18 19:00 07:00 Intake Total 180 ml 1290 ml Output Total 900 ml 1000 ml Balance -720 ml 290 ml Free Water 300 ml IV Total 450 ml Tube Feeding 180 ml 540 ml Output Urine Total 900 ml 1000 ml # Bowel Movements 1 Laboratory Tests 06/06/18 05:15: White Blood Count 13.8H, Red Blood Count 2.95L, Hemoglobin 9.2L, Hematocrit 27.1L, Mean Corpuscular Volume 92, Mean Corpuscular Hemoglobin 31.3H, Mean Corpuscular Hemoglobin Concent 34.0, Red Cell Distribution Width 12.7, Platelet Count 371, Mean Platelet Volume 6.3L, Neutrophils (%) (Auto) 70.4, Lymphocytes ( %) (Auto) 15.5L, Monocytes (%) (Auto) 7.9, Eosinophils (%) (Auto) 5.7H, Basophils (%) (Auto) 0.6, Erythrocyte Sedimentation Rate 56H, Sodium Level 135L , Potassium Level 4.0, Chloride Level 102, Carbon Dioxide Level 31, Anion Gap 2L , Blood Urea Nitrogen 9, Creatinine 0.5L, Estimat Glomerular Filtration Rate > 60, Glucose Level 168H, Calcium Level 8.3L, Phosphorus Level 2.7, Magnesium Level 1.9, Total Bilirubin 0.3, Aspartate Amino Transf (AST/SGOT) 33, Alanine Aminotransferase (ALT/SGPT) 42, Alkaline Phosphatase 69, C-Reactive Protein, Quantitative 6.3H, Total Protein 5.4L, Albumin 1.9L, Globulin 3.5, Albumin/ Globulin Ratio 0.5L Height (Feet): 5 Height (Inches): 10.00 Weight (Pounds): 154 General Appearance: no apparent distress, alert, confused Katherine Orozco MD Jun 06, 2018 21:49
[2018-06-07] VITALS: BP 98/69
[2018-06-07] MEDS: NovoLOG Insulin Flexpen SUBQ SCH ×4 (00:15→17:42)
[2018-06-07 04:00] VITALS: BP 100/73
[2018-06-07] MEDS: Midodrine 10mg tab ORAL SCH ×3 (05:24→22:05)
[2018-06-07 06:36] LABS: BASOPHILS % (AUTO) 0.4 % (0.0-2.0); EOSINOPHILS % (AUTO) 5.9 % (0.0-3.0); HEMATOCRIT 27.6 % (42.0-52.0); HEMOGLOBIN 9.3 G/DL (14.2-18.0); LYMPHOCYTES % (AUTO) 13.4 % (20.0-45.0); MEAN CORPUSCULAR VOLUME 92 FL (80-99); MONOCYTES % (AUTO) 5.6 % (1.0-10.0); NEUTROPHILS % (AUTO) 74.6 % (45.0-75.0); PLATELET COUNT 425 K/UL (150-450); RED CELL DISTRIBUTION WIDTH 12.4 % (11.6-14.8); WHITE BLOOD COUNT 15.2 K/UL (4.8-10.8)
[2018-06-07 06:47] LABS: ALANINE AMINOTRANSFERASE 34 U/L (12-78); ALBUMIN/GLOBULIN RATIO 0.5 (1.0-2.7); ALKALINE PHOSPHATASE 71 U/L (46-116); ANION GAP 1 mmol/L (5-15); ASPARTATE AMINO TRANSFERASE 24 U/L (15-37); BILIRUBIN,TOTAL 0.3 MG/DL (0.2-1.0); BLOOD UREA NITROGEN 8 mg/dL (7-18); CALCIUM 8.9 MG/DL (8.5-10.1); CARBON DIOXIDE 32 MMOL/L (21-32); CHLORIDE 101 MMOL/L (98-107); CREATININE 0.5 MG/DL (0.55-1.30); PHOSPHORUS 3.5 MG/DL (2.5-4.9); POTASSIUM 4.1 MMOL/L (3.5-5.1); SODIUM 134 MMOL/L (136-145)
[2018-06-07 07:57] VITALS: BP 117/62
[2018-06-07] MEDS: Heparin 5000 units/ml inj SUBQ SCH ×3 (09:00→20:58)
--- NOTE | 2018-06-07 09:11 | Infectious Diseases Prog Note ---
Assessment/Plan Assessment/Plan The patient is a 58-year-old unfortunate male with: Sepsis/septic shock. 06/01 - BCx NGTD 06/02 - BCx NGTD UTI (complicated) in the setting of urinary obstruction. 06/01/18 - UCx E. Coli Fever - resolved Leukocytosis - still elevated CKD versus FARHANA. PLAN: - Continue Ceftriaxone #3/7 - 06/05 SP - IV ertapenem #4 and vancomycin #4 06/02 SP Amikacin #1 - Monitor CBC. - Monitor BMP. - Monitor cultures (blood). - Monitor chest x-ray. We will follow the patient with you during this admission. Subjective Allergies: Coded Allergies: DIVALPROEX SODIUM (Verified Allergy, Unknown, 06/01/18) PENICILLINS (Unverified Allergy, Unknown, 06/01/18) Subjective Patient awake Afebrile Objective Vital Signs Last 24 Hour Vital Signs Date Time Temp Pulse Resp B/P (MAP) Pulse Ox O2 Delivery O2 Flow Rate FiO2 06/07/18 08:12 81 18 Nasal Cannula 2.0 28 06/07/18 08:12 98 Nasal Cannula 2.0 28 06/07/18 08:12 Nasal Cannula 2.0 28 06/07/18 07:57 97.0 95 19 117/62 (80) 100 97.0 06/07/18 04:00 97.4 88 19 100/73 (82) 100 97.4 06/07/18 00:00 96.3 20 98/69 (79) 100 96.3 06/06/18 21:00 Nasal Cannula 2.0 06/06/18 20:00 97.2 79 19 111/75 (87) 97 97.2 06/06/18 19:14 96 Nasal Cannula 2.0 28 06/06/18 19:14 77 19 Nasal Cannula 2.0 28 06/06/18 19:14 Nasal Cannula 2.0 28 06/06/18 16:00 97.7 82 18 123/75 (91) 100 97.7 06/06/18 14:17 85 109/70 (83) 06/06/18 12:00 97.7 85 20 118/66 (83) 98 97.7 06/06/18 09:41 79 18 Nasal Cannula 2.0 28 06/06/18 09:41 Nasal Cannula 2.0 28 06/06/18 09:41 97 Nasal Cannula 2.0 28 Height (Feet): 5 Height (Inches): 10.00 Weight (Pounds): 154 Objective GEN: NAD, Laying in bed HEENT: NCAT, MMM No icterus. CHEST: CTAB, No W ABD: Soft, NT, ND, Feeding tube in place. HEART: RRR, S1, S2 EXTREMITIES: Left BKA. GENITOURINARY: Vargas catheter in place. Laboratory Tests Test 06/07/18 05:45 White Blood Count 15.2 K/UL (4.8-10.8) H Red Blood Count 3.00 M/UL (4.70-6.10) L Hemoglobin 9.3 G/DL (14.2-18.0) L Hematocrit 27.6 % (42.0-52.0) L Mean Corpuscular Volume 92 FL (80-99) Mean Corpuscular Hemoglobin 31.1 PG (27.0-31.0) H Mean Corpuscular Hemoglobin Concent 33.8 G/DL (32.0-36.0) Red Cell Distribution Width 12.4 % (11.6-14.8) Platelet Count 425 K/UL (150-450) Mean Platelet Volume 6.7 FL (6.5-10.1) Neutrophils (%) (Auto) 74.6 % (45.0-75.0) Lymphocytes (%) (Auto) 13.4 % (20.0-45.0) L Monocytes (%) (Auto) 5.6 % (1.0-10.0) Eosinophils (%) (Auto) 5.9 % (0.0-3.0) H Basophils (%) (Auto) 0.4 % (0.0-2.0) Sodium Level 134 MMOL/L (136-145) L Potassium Level 4.1 MMOL/L (3.5-5.1) Chloride Level 101 MMOL/L (98-107) Carbon Dioxide Level 32 MMOL/L (21-32) Anion Gap 1 mmol/L (5-15) L Blood Urea Nitrogen 8 mg/dL (7-18) Creatinine 0.5 MG/DL (0.55-1.30) L Estimat Glomerular Filtration Rate > 60 mL/min (>60) Glucose Level 147 MG/DL (74-106) H Calcium Level 8.9 MG/DL (8.5-10.1) Phosphorus Level 3.5 MG/DL (2.5-4.9) Magnesium Level 1.8 MG/DL (1.8-2.4) Total Bilirubin 0.3 MG/DL (0.2-1.0) Aspartate Amino Transf (AST/SGOT) 24 U/L (15-37) Alanine Aminotransferase (ALT/SGPT) 34 U/L (12-78) Alkaline Phosphatase 71 U/L (46-116) Total Protein 5.7 G/DL (6.4-8.2) L Albumin 2.0 G/DL (3.4-5.0) L Globulin 3.7 g/dL Albumin/Globulin Ratio 0.5 (1.0-2.7) L Current Medications Medications (Trade) Dose Ordered Sig/Cristofer Route PRN Reason Start Time Stop Time Status Last Admin Dose Admin Acetaminophen (Tylenol) 650 mg Q4H PRN ORAL fever 06/04/18 13:45 07/02/18 09:44 Albuterol/ Ipratropium (Albuterol/ Ipratropium) 3 ml Q4H PRN HHN Shortness of Breath 06/04/18 13:45 06/07/18 09:44 Ceftriaxone Sodium 1 gm/ Dextrose 55 ml @ 110 mls/hr Q24H IVPB 06/05/18 10:00 06/12/18 09:59 06/06/18 09:10 Chlorhexidine Gluconate (Aileen-Hex 2%) 1 applic DAILY@2000 TOPIC 06/04/18 20:00 07/02/18 19:59 06/06/18 21:18 Dextrose (Dextrose 50%) 25 ml STAT PRN IV Hypoglycemia 06/04/18 12:54 07/01/18 12:53 Dextrose (Dextrose 50%) 50 ml STAT PRN IV Hypoglycemia 06/04/18 12:54 07/01/18 12:53 Heparin Sodium (Porcine) (Heparin 5000 units/ml) 5,000 units EVERY 12 HOURS SUBQ 06/04/18 21:00 07/02/18 08:59 06/06/18 21:18 Insulin Aspart (NovoLOG) Q6HR SUBQ 06/04/18 18:00 07/02/18 00:00 06/07/18 05:25 Lansoprazole (Prevacid) 30 mg DAILY GT 06/07/18 09:00 07/07/18 08:59 Levetiracetam (Keppra) 500 mg Q12HR NG 06/04/18 21:00 07/02/18 00:05 06/06/18 21:18 Midodrine (Pro-Amatine) 10 mg Q8HR ORAL 06/04/18 14:00 07/03/18 17:59 06/07/18 05:24 Ondansetron HCl (Zofran) 4 mg Q6H PRN IVP Nausea & Vomiting 06/04/18 15:45 07/02/18 09:44 Polyethylene Glycol (Miralax) 17 gm DAILYPRN PRN ORAL Constipation 06/04/18 12:55 07/04/18 12:54 Quetiapine Fumarate (SEROquel) 25 mg Q6H PRN ORAL For Anxiety 06/05/18 15:15 07/05/18 15:14 Jacek Davenport MD Jun 07, 2018 09:11
[2018-06-07] MEDS: levETIRAcetam 500mg/5ml Liquid NG SCH ×2 (09:16→20:57)
[2018-06-07] MEDS: cefTRIAXone 1 GM in D5W 55 ML IVPB SCH (09:16)
--- NOTE | 2018-06-07 10:41 | General Surgery Progress Note ---
General Surgery-Progress Note Subjective Procedure Performed right subclavian central venous catheter insertion Additional Comments doing well. no acute events. leukocytosis Objective Last 24 Hour Vital Signs Date Time Temp Pulse Resp B/P (MAP) Pulse Ox O2 Delivery O2 Flow Rate FiO2 06/07/18 08:45 Nasal Cannula 2.0 06/07/18 08:12 81 18 Nasal Cannula 2.0 28 06/07/18 08:12 98 Nasal Cannula 2.0 28 06/07/18 08:12 Nasal Cannula 2.0 28 06/07/18 07:57 97.0 95 19 117/62 (80) 100 97.0 06/07/18 04:00 97.4 88 19 100/73 (82) 100 97.4 06/07/18 00:00 96.3 20 98/69 (79) 100 96.3 06/06/18 21:00 Nasal Cannula 2.0 06/06/18 20:00 97.2 79 19 111/75 (87) 97 97.2 06/06/18 19:14 96 Nasal Cannula 2.0 28 06/06/18 19:14 77 19 Nasal Cannula 2.0 28 06/06/18 19:14 Nasal Cannula 2.0 28 06/06/18 16:00 97.7 82 18 123/75 (91) 100 97.7 06/06/18 14:17 85 109/70 (83) 06/06/18 12:00 97.7 85 20 118/66 (83) 98 97.7 I&O Intake and Output 06/06/18 06/07/18 19:00 07:00 Intake Total 1075 ml 1020 ml Output Total 5200 ml Balance -4125 ml 1020 ml Free Water 300 ml 300 ml IV Total 55 ml Tube Feeding 720 ml 720 ml Output Urine Total 5200 ml # Bowel Movements 2 Drains: other Cardiovascular: RSR Respiratory: clear Abdomen: soft, flat, non-tender, present bowel sounds Extremities: other Laboratory Tests Test 06/07/18 05:45 White Blood Count 15.2 K/UL (4.8-10.8) H Red Blood Count 3.00 M/UL (4.70-6.10) L Hemoglobin 9.3 G/DL (14.2-18.0) L Hematocrit 27.6 % (42.0-52.0) L Mean Corpuscular Volume 92 FL (80-99) Mean Corpuscular Hemoglobin 31.1 PG (27.0-31.0) H Mean Corpuscular Hemoglobin Concent 33.8 G/DL (32.0-36.0) Red Cell Distribution Width 12.4 % (11.6-14.8) Platelet Count 425 K/UL (150-450) Mean Platelet Volume 6.7 FL (6.5-10.1) Neutrophils (%) (Auto) 74.6 % (45.0-75.0) Lymphocytes (%) (Auto) 13.4 % (20.0-45.0) L Monocytes (%) (Auto) 5.6 % (1.0-10.0) Eosinophils (%) (Auto) 5.9 % (0.0-3.0) H Basophils (%) (Auto) 0.4 % (0.0-2.0) Sodium Level 134 MMOL/L (136-145) L Potassium Level 4.1 MMOL/L (3.5-5.1) Chloride Level 101 MMOL/L (98-107) Carbon Dioxide Level 32 MMOL/L (21-32) Anion Gap 1 mmol/L (5-15) L Blood Urea Nitrogen 8 mg/dL (7-18) Creatinine 0.5 MG/DL (0.55-1.30) L Estimat Glomerular Filtration Rate > 60 mL/min (>60) Glucose Level 147 MG/DL (74-106) H Calcium Level 8.9 MG/DL (8.5-10.1) Phosphorus Level 3.5 MG/DL (2.5-4.9) Magnesium Level 1.8 MG/DL (1.8-2.4) Total Bilirubin 0.3 MG/DL (0.2-1.0) Aspartate Amino Transf (AST/SGOT) 24 U/L (15-37) Alanine Aminotransferase (ALT/SGPT) 34 U/L (12-78) Alkaline Phosphatase 71 U/L (46-116) Total Protein 5.7 G/DL (6.4-8.2) L Albumin 2.0 G/DL (3.4-5.0) L Globulin 3.7 g/dL Albumin/Globulin Ratio 0.5 (1.0-2.7) L Plan Problems: (1) Sepsis Assessment & Plan: Patient known to me. Seen yesterday for urgent central line placement given sepsis and requirements during work up noted recent surgical placed j tube. also urosepsis. awake and responsive. he is unsure of what happened but is able to follow commands. records reviewed. abdomen examined. midline wound c/d/i with surgical milind. no signs of infection or complication. j tube is a red rubber catheter and patent/functional. KUB reviewed. wound c/d/i. -unlikely etiology of sepsis recent surgery and feeding tube. likely urosepsis -okay to use feeding tube -cont current care and management thank you Shiv Horvath Jun 07, 2018 10:41
--- NOTE | 2018-06-07 10:42 | GI Progress Note ---
Assessment/Plan Problems: (1) Amputated left leg ICD Codes: Z89.612 - Acquired absence of left leg above knee SNOMED: 775697270 (2) feeding by Jt (3) Sepsis ICD Codes: A41.9 - Sepsis, unspecified organism SNOMED: 43417320, 931944502 (4) Diabetes ICD Codes: E11.9 - Type 2 diabetes mellitus without complications SNOMED: 23906540 (5) Septic shock ICD Codes: A41.9 - Sepsis, unspecified organism; R65.21 - Severe sepsis with septic shock SNOMED: 64870119 (6) Renal insufficiency ICD Codes: N28.9 - Disorder of kidney and ureter, unspecified SNOMED: 269605528, 485741861 (7) Hypoalbuminemia ICD Codes: E88.09 - Other disorders of plasma-protein metabolism, not elsewhere classified SNOMED: 543417499 Status: stable Status Narrative Discussed with Dr. Mcneil. Assessment/Plan OB stool negative cont GJFs to goal prn transfusions abx per ID PO/IV hydration fu labs supportive care dc planning The patient was seen and examined at bedside and all new and available data was reviewed in the patients chart. I agree with the above findings, impression and plan. (Patient seen earlier today. Signature stamp does not reflect patient encounter time.). - Louis Mcneil MD Subjective Subjective limited Objective Last 24 Hour Vital Signs Date Time Temp Pulse Resp B/P (MAP) Pulse Ox O2 Delivery O2 Flow Rate FiO2 06/07/18 08:45 Nasal Cannula 2.0 06/07/18 08:12 81 18 Nasal Cannula 2.0 28 06/07/18 08:12 98 Nasal Cannula 2.0 28 06/07/18 08:12 Nasal Cannula 2.0 28 06/07/18 07:57 97.0 95 19 117/62 (80) 100 97.0 06/07/18 04:00 97.4 88 19 100/73 (82) 100 97.4 06/07/18 00:00 96.3 20 98/69 (79) 100 96.3 06/06/18 21:00 Nasal Cannula 2.0 06/06/18 20:00 97.2 79 19 111/75 (87) 97 97.2 06/06/18 19:14 96 Nasal Cannula 2.0 28 06/06/18 19:14 77 19 Nasal Cannula 2.0 28 06/06/18 19:14 Nasal Cannula 2.0 28 06/06/18 16:00 97.7 82 18 123/75 (91) 100 97.7 06/06/18 14:17 85 109/70 (83) 06/06/18 12:00 97.7 85 20 118/66 (83) 98 97.7 Intake and Output 06/06/18 06/07/18 19:00 07:00 Intake Total 1075 ml 1020 ml Output Total 5200 ml Balance -4125 ml 1020 ml Free Water 300 ml 300 ml IV Total 55 ml Tube Feeding 720 ml 720 ml Output Urine Total 5200 ml # Bowel Movements 2 Laboratory Tests Test 06/07/18 05:45 White Blood Count 15.2 K/UL (4.8-10.8) H Red Blood Count 3.00 M/UL (4.70-6.10) L Hemoglobin 9.3 G/DL (14.2-18.0) L Hematocrit 27.6 % (42.0-52.0) L Mean Corpuscular Volume 92 FL (80-99) Mean Corpuscular Hemoglobin 31.1 PG (27.0-31.0) H Mean Corpuscular Hemoglobin Concent 33.8 G/DL (32.0-36.0) Red Cell Distribution Width 12.4 % (11.6-14.8) Platelet Count 425 K/UL (150-450) Mean Platelet Volume 6.7 FL (6.5-10.1) Neutrophils (%) (Auto) 74.6 % (45.0-75.0) Lymphocytes (%) (Auto) 13.4 % (20.0-45.0) L Monocytes (%) (Auto) 5.6 % (1.0-10.0) Eosinophils (%) (Auto) 5.9 % (0.0-3.0) H Basophils (%) (Auto) 0.4 % (0.0-2.0) Sodium Level 134 MMOL/L (136-145) L Potassium Level 4.1 MMOL/L (3.5-5.1) Chloride Level 101 MMOL/L (98-107) Carbon Dioxide Level 32 MMOL/L (21-32) Anion Gap 1 mmol/L (5-15) L Blood Urea Nitrogen 8 mg/dL (7-18) Creatinine 0.5 MG/DL (0.55-1.30) L Estimat Glomerular Filtration Rate > 60 mL/min (>60) Glucose Level 147 MG/DL (74-106) H Calcium Level 8.9 MG/DL (8.5-10.1) Phosphorus Level 3.5 MG/DL (2.5-4.9) Magnesium Level 1.8 MG/DL (1.8-2.4) Total Bilirubin 0.3 MG/DL (0.2-1.0) Aspartate Amino Transf (AST/SGOT) 24 U/L (15-37) Alanine Aminotransferase (ALT/SGPT) 34 U/L (12-78) Alkaline Phosphatase 71 U/L (46-116) Total Protein 5.7 G/DL (6.4-8.2) L Albumin 2.0 G/DL (3.4-5.0) L Globulin 3.7 g/dL Albumin/Globulin Ratio 0.5 (1.0-2.7) L Height (Feet): 5 Height (Inches): 10.00 Weight (Pounds): 154 General Appearance: alert Cardiovascular: normal rate Respiratory/Chest: normal breath sounds Abdominal Exam: other - Finn Gilbert NP Jun 07, 2018 10:42
[2018-06-07 12:00] VITALS: BP 88/56
--- NOTE | 2018-06-07 13:11 | Pulmonology Progress Note ---
Assessment/Plan Problems: (1) Sepsis (2) UTI (urinary tract infection) (3) Hypoalbuminemia (4) feeding by Jt (5) Amputated left leg (6) HTN (hypertension) (7) Alzheimer's dementia Assessment/Plan wbc still high confused improving continue abx check electrolytes watch WBC f/u cultures dc to care home when wbc trending down Subjective ROS Limited/Unobtainable: No Constitutional: Reports: no symptoms HEENT: Repors: no symptoms Respiratory: Reports: no symptoms Allergies: Coded Allergies: DIVALPROEX SODIUM (Verified Allergy, Unknown, 06/01/18) PENICILLINS (Unverified Allergy, Unknown, 06/01/18) Objective Last 24 Hour Vital Signs Date Time Temp Pulse Resp B/P (MAP) Pulse Ox O2 Delivery O2 Flow Rate FiO2 06/07/18 12:00 97.5 102 16 88/56 (67) 97 97.5 06/07/18 08:45 Nasal Cannula 2.0 06/07/18 08:12 81 18 Nasal Cannula 2.0 28 06/07/18 08:12 98 Nasal Cannula 2.0 28 06/07/18 08:12 Nasal Cannula 2.0 28 06/07/18 07:57 97.0 95 19 117/62 (80) 100 97.0 06/07/18 04:00 97.4 88 19 100/73 (82) 100 97.4 06/07/18 00:00 96.3 20 98/69 (79) 100 96.3 06/06/18 21:00 Nasal Cannula 2.0 06/06/18 20:00 97.2 79 19 111/75 (87) 97 97.2 06/06/18 19:14 96 Nasal Cannula 2.0 28 06/06/18 19:14 77 19 Nasal Cannula 2.0 28 06/06/18 19:14 Nasal Cannula 2.0 28 06/06/18 16:00 97.7 82 18 123/75 (91) 100 97.7 06/06/18 14:17 85 109/70 (83) Intake and Output 06/06/18 06/07/18 19:00 07:00 Intake Total 1075 ml 1020 ml Output Total 5200 ml Balance -4125 ml 1020 ml Free Water 300 ml 300 ml IV Total 55 ml Tube Feeding 720 ml 720 ml Output Urine Total 5200 ml # Bowel Movements 2 General Appearance: WD/WN HEENT: normocephalic, atraumatic Respiratory/Chest: chest wall non-tender, lungs clear Cardiovascular: normal peripheral pulses, regular rhythm Genitourinary: normal external genitalia Laboratory Tests 06/07/18 05:45: White Blood Count 15.2H, Red Blood Count 3.00L, Hemoglobin 9.3L, Hematocrit 27.6L, Mean Corpuscular Volume 92, Mean Corpuscular Hemoglobin 31.1H, Mean Corpuscular Hemoglobin Concent 33.8, Red Cell Distribution Width 12.4, Platelet Count 425, Mean Platelet Volume 6.7, Neutrophils (%) (Auto) 74.6, Lymphocytes (% ) (Auto) 13.4L, Monocytes (%) (Auto) 5.6, Eosinophils (%) (Auto) 5.9H, Basophils (%) (Auto) 0.4, Sodium Level 134L, Potassium Level 4.1, Chloride Level 101, Carbon Dioxide Level 32, Anion Gap 1L, Blood Urea Nitrogen 8, Creatinine 0.5L, Estimat Glomerular Filtration Rate > 60, Glucose Level 147H, Calcium Level 8.9, Phosphorus Level 3.5, Magnesium Level 1.8, Total Bilirubin 0.3, Aspartate Amino Transf (AST/SGOT) 24, Alanine Aminotransferase (ALT/SGPT) 34, Alkaline Phosphatase 71, Total Protein 5.7L, Albumin 2.0L, Globulin 3.7, Albumin/Globulin Ratio 0.5L Current Medications Medications (Trade) Dose Ordered Sig/Cristofer Route PRN Reason Start Time Stop Time Status Last Admin Dose Admin Acetaminophen (Tylenol) 650 mg Q4H PRN ORAL fever 06/04/18 13:45 07/02/18 09:44 Ceftriaxone Sodium 1 gm/ Dextrose 55 ml @ 110 mls/hr Q24H IVPB 06/05/18 10:00 06/12/18 09:59 06/07/18 09:16 Chlorhexidine Gluconate (Aileen-Hex 2%) 1 applic DAILY@2000 TOPIC 06/04/18 20:00 07/02/18 19:59 06/06/18 21:18 Dextrose (Dextrose 50%) 25 ml STAT PRN IV Hypoglycemia 06/04/18 12:54 07/01/18 12:53 Dextrose (Dextrose 50%) 50 ml STAT PRN IV Hypoglycemia 06/04/18 12:54 07/01/18 12:53 Heparin Sodium (Porcine) (Heparin 5000 units/ml) 5,000 units EVERY 12 HOURS SUBQ 06/04/18 21:00 07/02/18 08:59 06/06/18 21:18 Insulin Aspart (NovoLOG) Q6HR SUBQ 06/04/18 18:00 07/02/18 00:00 06/07/18 05:25 Lansoprazole (Prevacid) 30 mg DAILY GT 06/07/18 09:00 07/07/18 08:59 06/07/18 09:16 Levetiracetam (Keppra) 500 mg Q12HR NG 06/04/18 21:00 07/02/18 00:05 06/07/18 09:16 Midodrine (Pro-Amatine) 10 mg Q8HR ORAL 06/04/18 14:00 07/03/18 17:59 06/07/18 05:24 Ondansetron HCl (Zofran) 4 mg Q6H PRN IVP Nausea & Vomiting 06/04/18 15:45 07/02/18 09:44 Polyethylene Glycol (Miralax) 17 gm DAILYPRN PRN ORAL Constipation 06/04/18 12:55 07/04/18 12:54 Quetiapine Fumarate (SEROquel) 25 mg Q6H PRN ORAL For Anxiety 06/05/18 15:15 07/05/18 15:14 Dony Sanchez MD Jun 07, 2018 13:10
--- NOTE | 2018-06-07 13:21 | General Progress Note ---
Assessment/Plan Problem List: (1) Encephalopathy due to metabolic factor or toxin SNOMED: 966745165 (2) MDD (major depressive disorder), recurrent episode, moderate ICD Codes: F33.1 - Major depressive disorder, recurrent, moderate SNOMED: 12424703, 209297797 Status: stable Assessment/Plan seroquel prn the pt lacks capacity to make decisions Subjective Date patient seen: Jun 07, 2018 Neurologic/Psychiatric: Reports: anxiety, depressed, emotional problems Allergies: Coded Allergies: DIVALPROEX SODIUM (Verified Allergy, Unknown, 06/01/18) PENICILLINS (Unverified Allergy, Unknown, 06/01/18) Objective Last 24 Hour Vital Signs Date Time Temp Pulse Resp B/P (MAP) Pulse Ox O2 Delivery O2 Flow Rate FiO2 06/07/18 12:00 97.5 102 16 88/56 (67) 97 97.5 06/07/18 08:45 Nasal Cannula 2.0 06/07/18 08:12 81 18 Nasal Cannula 2.0 28 06/07/18 08:12 98 Nasal Cannula 2.0 28 06/07/18 08:12 Nasal Cannula 2.0 28 06/07/18 07:57 97.0 95 19 117/62 (80) 100 97.0 06/07/18 04:00 97.4 88 19 100/73 (82) 100 97.4 06/07/18 00:00 96.3 20 98/69 (79) 100 96.3 06/06/18 21:00 Nasal Cannula 2.0 06/06/18 20:00 97.2 79 19 111/75 (87) 97 97.2 06/06/18 19:14 96 Nasal Cannula 2.0 28 06/06/18 19:14 77 19 Nasal Cannula 2.0 28 06/06/18 19:14 Nasal Cannula 2.0 28 06/06/18 16:00 97.7 82 18 123/75 (91) 100 97.7 06/06/18 14:17 85 109/70 (83) Intake and Output 06/06/18 06/07/18 19:00 07:00 Intake Total 1075 ml 1020 ml Output Total 5200 ml Balance -4125 ml 1020 ml Free Water 300 ml 300 ml IV Total 55 ml Tube Feeding 720 ml 720 ml Output Urine Total 5200 ml # Bowel Movements 2 Laboratory Tests 06/07/18 05:45: White Blood Count 15.2H, Red Blood Count 3.00L, Hemoglobin 9.3L, Hematocrit 27.6L, Mean Corpuscular Volume 92, Mean Corpuscular Hemoglobin 31.1H, Mean Corpuscular Hemoglobin Concent 33.8, Red Cell Distribution Width 12.4, Platelet Count 425, Mean Platelet Volume 6.7, Neutrophils (%) (Auto) 74.6, Lymphocytes (% ) (Auto) 13.4L, Monocytes (%) (Auto) 5.6, Eosinophils (%) (Auto) 5.9H, Basophils (%) (Auto) 0.4, Sodium Level 134L, Potassium Level 4.1, Chloride Level 101, Carbon Dioxide Level 32, Anion Gap 1L, Blood Urea Nitrogen 8, Creatinine 0.5L, Estimat Glomerular Filtration Rate > 60, Glucose Level 147H, Calcium Level 8.9, Phosphorus Level 3.5, Magnesium Level 1.8, Total Bilirubin 0.3, Aspartate Amino Transf (AST/SGOT) 24, Alanine Aminotransferase (ALT/SGPT) 34, Alkaline Phosphatase 71, Total Protein 5.7L, Albumin 2.0L, Globulin 3.7, Albumin/Globulin Ratio 0.5L Height (Feet): 5 Height (Inches): 10.00 Weight (Pounds): 154 General Appearance: no apparent distress, alert, confused Neurologic: depressed affect Katherine Orozco MD Jun 07, 2018 13:20
--- NOTE | 2018-06-07 14:38 | Nephrology Progress Note ---
Assessment/Plan Problem List: (1) Septic shock (2) ATN (acute tubular necrosis) (3) UTI (urinary tract infection) (4) feeding by Jt (5) Hypoalbuminemia Assessment OFF pressors Acute renal failure- Likely urinary retention Hypotension, on Pressors Sever Anemia UTI , Pneumonia, Amputated left leg Plan DC Hydrocortisone mag and Phos IV Transfused Hydrate ferreira Avoid Nephrotoxics monitor renal parameters Midodrine Albumin bolus as needed Med surg Subjective ROS Limited/Unobtainable: No Constitutional: Reports: malaise, weakness Objective Objective Last 24 Hour Vital Signs Date Time Temp Pulse Resp B/P (MAP) Pulse Ox O2 Delivery O2 Flow Rate FiO2 06/07/18 12:00 97.5 102 16 88/56 (67) 97 97.5 06/07/18 08:45 Nasal Cannula 2.0 06/07/18 08:12 81 18 Nasal Cannula 2.0 28 06/07/18 08:12 98 Nasal Cannula 2.0 28 06/07/18 08:12 Nasal Cannula 2.0 28 06/07/18 07:57 97.0 95 19 117/62 (80) 100 97.0 06/07/18 04:00 97.4 88 19 100/73 (82) 100 97.4 06/07/18 00:00 96.3 20 98/69 (79) 100 96.3 06/06/18 21:00 Nasal Cannula 2.0 06/06/18 20:00 97.2 79 19 111/75 (87) 97 97.2 06/06/18 19:14 96 Nasal Cannula 2.0 28 06/06/18 19:14 77 19 Nasal Cannula 2.0 28 06/06/18 19:14 Nasal Cannula 2.0 28 06/06/18 16:00 97.7 82 18 123/75 (91) 100 97.7 Intake and Output 06/06/18 06/07/18 19:00 07:00 Intake Total 1075 ml 1020 ml Output Total 5200 ml Balance -4125 ml 1020 ml Free Water 300 ml 300 ml IV Total 55 ml Tube Feeding 720 ml 720 ml Output Urine Total 5200 ml # Bowel Movements 2 Laboratory Tests 06/07/18 05:45: White Blood Count 15.2H, Red Blood Count 3.00L, Hemoglobin 9.3L, Hematocrit 27.6L, Mean Corpuscular Volume 92, Mean Corpuscular Hemoglobin 31.1H, Mean Corpuscular Hemoglobin Concent 33.8, Red Cell Distribution Width 12.4, Platelet Count 425, Mean Platelet Volume 6.7, Neutrophils (%) (Auto) 74.6, Lymphocytes (% ) (Auto) 13.4L, Monocytes (%) (Auto) 5.6, Eosinophils (%) (Auto) 5.9H, Basophils (%) (Auto) 0.4, Sodium Level 134L, Potassium Level 4.1, Chloride Level 101, Carbon Dioxide Level 32, Anion Gap 1L, Blood Urea Nitrogen 8, Creatinine 0.5L, Estimat Glomerular Filtration Rate > 60, Glucose Level 147H, Calcium Level 8.9, Phosphorus Level 3.5, Magnesium Level 1.8, Total Bilirubin 0.3, Aspartate Amino Transf (AST/SGOT) 24, Alanine Aminotransferase (ALT/SGPT) 34, Alkaline Phosphatase 71, Total Protein 5.7L, Albumin 2.0L, Globulin 3.7, Albumin/Globulin Ratio 0.5L Height (Feet): 5 Height (Inches): 10.00 Weight (Pounds): 154 General Appearance: no apparent distress Respiratory/Chest: decreased breath sounds Abdomen: distended Objective no other change Jose Menon MD Jun 07, 2018 14:38
[2018-06-07] MEDS ORDERED: Albumin Human 5% 250ml IV ONE (14:45)
[2018-06-07 16:00] VITALS: BP 92/58
[2018-06-07] MEDS ORDERED: Albumin Human 5% 500ml IV ONE (16:00)
--- NOTE | 2018-06-07 16:31 | Internal Med Progress Note ---
Subjective Date of Service: Jun 07, 2018 Physician Name Marley,Manjinder Attending Physician Ean Joyce MD Current Medications Medications (Trade) Dose Ordered Sig/Cristofer Route PRN Reason Start Time Stop Time Status Last Admin Dose Admin Acetaminophen (Tylenol) 650 mg Q4H PRN ORAL fever 06/04/18 13:45 07/02/18 09:44 Albumin Human 500 ml @ 0 mls/hr Q0M ONCE IV 06/07/18 16:00 06/07/18 16:01 06/07/18 15:24 Ceftriaxone Sodium 1 gm/ Dextrose 55 ml @ 110 mls/hr Q24H IVPB 06/05/18 10:00 06/12/18 09:59 06/07/18 09:16 Chlorhexidine Gluconate (Aileen-Hex 2%) 1 applic DAILY@2000 TOPIC 06/04/18 20:00 07/02/18 19:59 06/06/18 21:18 Dextrose (Dextrose 50%) 25 ml STAT PRN IV Hypoglycemia 06/04/18 12:54 07/01/18 12:53 Dextrose (Dextrose 50%) 50 ml STAT PRN IV Hypoglycemia 06/04/18 12:54 07/01/18 12:53 Heparin Sodium (Porcine) (Heparin 5000 units/ml) 5,000 units EVERY 12 HOURS SUBQ 06/04/18 21:00 07/02/18 08:59 06/06/18 21:18 Insulin Aspart (NovoLOG) Q6HR SUBQ 06/04/18 18:00 07/02/18 00:00 06/07/18 05:25 Lansoprazole (Prevacid) 30 mg DAILY GT 06/07/18 09:00 07/07/18 08:59 06/07/18 09:16 Levetiracetam (Keppra) 500 mg Q12HR NG 06/04/18 21:00 07/02/18 00:05 06/07/18 09:16 Midodrine (Pro-Amatine) 10 mg Q8HR ORAL 06/04/18 14:00 07/03/18 17:59 06/07/18 14:40 Ondansetron HCl (Zofran) 4 mg Q6H PRN IVP Nausea & Vomiting 06/04/18 15:45 07/02/18 09:44 Polyethylene Glycol (Miralax) 17 gm DAILYPRN PRN ORAL Constipation 06/04/18 12:55 07/04/18 12:54 Quetiapine Fumarate (SEROquel) 25 mg Q6H PRN ORAL For Anxiety 06/05/18 15:15 07/05/18 15:14 Allergies: Coded Allergies: DIVALPROEX SODIUM (Verified Allergy, Unknown, 06/01/18) PENICILLINS (Unverified Allergy, Unknown, 06/01/18) ROS Limited/Unobtainable: No Constitutional: Reports: no symptoms HEENT: Reports: no symptoms Cardiovascular: Reports: no symptoms Respiratory: Reports: no symptoms Gastrointestinal/Abdominal: Reports: no symptoms Genitourinary: Reports: no symptoms Neurologic/Psychiatric: Reports: no symptoms Subjective 59 YO M admitted with Fever and gen weakness. Now UTI and sepsis. Cover for Int Med-Dr Joyce. Worsening leukocytosis Objective Last Vital Signs Date Time Temp Pulse Resp B/P (MAP) Pulse Ox O2 Delivery O2 Flow Rate FiO2 06/07/18 16:00 97.5 97 17 92/58 (69) 100 97.5 06/07/18 08:45 Nasal Cannula 2.0 06/07/18 08:12 28 Laboratory Tests Test 06/07/18 05:45 White Blood Count 15.2 K/UL (4.8-10.8) H Red Blood Count 3.00 M/UL (4.70-6.10) L Hemoglobin 9.3 G/DL (14.2-18.0) L Hematocrit 27.6 % (42.0-52.0) L Mean Corpuscular Volume 92 FL (80-99) Mean Corpuscular Hemoglobin 31.1 PG (27.0-31.0) H Mean Corpuscular Hemoglobin Concent 33.8 G/DL (32.0-36.0) Red Cell Distribution Width 12.4 % (11.6-14.8) Platelet Count 425 K/UL (150-450) Mean Platelet Volume 6.7 FL (6.5-10.1) Neutrophils (%) (Auto) 74.6 % (45.0-75.0) Lymphocytes (%) (Auto) 13.4 % (20.0-45.0) L Monocytes (%) (Auto) 5.6 % (1.0-10.0) Eosinophils (%) (Auto) 5.9 % (0.0-3.0) H Basophils (%) (Auto) 0.4 % (0.0-2.0) Sodium Level 134 MMOL/L (136-145) L Potassium Level 4.1 MMOL/L (3.5-5.1) Chloride Level 101 MMOL/L (98-107) Carbon Dioxide Level 32 MMOL/L (21-32) Anion Gap 1 mmol/L (5-15) L Blood Urea Nitrogen 8 mg/dL (7-18) Creatinine 0.5 MG/DL (0.55-1.30) L Estimat Glomerular Filtration Rate > 60 mL/min (>60) Glucose Level 147 MG/DL (74-106) H Calcium Level 8.9 MG/DL (8.5-10.1) Phosphorus Level 3.5 MG/DL (2.5-4.9) Magnesium Level 1.8 MG/DL (1.8-2.4) Total Bilirubin 0.3 MG/DL (0.2-1.0) Aspartate Amino Transf (AST/SGOT) 24 U/L (15-37) Alanine Aminotransferase (ALT/SGPT) 34 U/L (12-78) Alkaline Phosphatase 71 U/L (46-116) Total Protein 5.7 G/DL (6.4-8.2) L Albumin 2.0 G/DL (3.4-5.0) L Globulin 3.7 g/dL Albumin/Globulin Ratio 0.5 (1.0-2.7) L Intake and Output 06/06/18 06/07/18 19:00 07:00 Intake Total 1075 ml 1020 ml Output Total 5200 ml Balance -4125 ml 1020 ml Free Water 300 ml 300 ml IV Total 55 ml Tube Feeding 720 ml 720 ml Output Urine Total 5200 ml # Bowel Movements 2 Objective HYSICAL EXAMINATION: GENERAL: The patient is thin appearing, cachectic white male, in no apparent distress. HEENT: Eyes, pupils equal and responsive to light and accommodation. Extraocular movements intact. NECK: Supple without lymphadenopathy. CHEST: Nasal canula; Lungs are clear to auscultation bilaterally without wheezes or rales. CARDIOVASCULAR: Tachycardic, regular rate. S1 and S2 are normal without murmurs, rubs, or gallops. ABDOMEN: Soft, nondistended with positive bowel sounds. No evidence of hepatosplenomegaly. Currently, no rebound or guarding noted. EXTREMITIES: Negative for clubbing, cyanosis, or edema. RECTAL: Refused. GENITAL: Refused. NEUROLOGIC: Cranial nerves II through XII are grossly intact without focal deficits. Motor strength is 5/5 bilaterally. Assessment/Plan Problem List: (1) HTN (hypertension) Assessment & Plan: current hypotensive (2) Alzheimer's dementia (3) Fever (4) Altered mental status (5) UTI (urinary tract infection) Assessment & Plan: E. Coli-continue ertapenem. See ID note (6) Septic shock Assessment & Plan: Continue antibiotics per ID (7) Leukocytosis Assessment & Plan: See ID note. Status: progressing Manjinder Marley MD Jun 07, 2018 16:31
[2018-06-07 20:00] VITALS: BP 100/61
[2018-06-07] MEDS: Dyna-Hex 2% Top Sol 2oz TOPIC SCH (20:57)
[2018-06-08] VITALS: BP 117/65
[2018-06-08] MEDS: NovoLOG Insulin Flexpen SUBQ SCH ×3 (00:24→12:22)
[2018-06-08 04:00] VITALS: BP 107/64
[2018-06-08] MEDS: Midodrine 10mg tab ORAL SCH ×2 (05:40→14:14)
[2018-06-08 06:37] LABS: BASOPHILS % (AUTO) 0.2 % (0.0-2.0); EOSINOPHILS % (AUTO) 2.7 % (0.0-3.0); HEMATOCRIT 28.1 % (42.0-52.0); HEMOGLOBIN 9.5 G/DL (14.2-18.0); LYMPHOCYTES % (AUTO) 13.9 % (20.0-45.0); MEAN CORPUSCULAR VOLUME 92 FL (80-99); MONOCYTES % (AUTO) 6.3 % (1.0-10.0); NEUTROPHILS % (AUTO) 76.9 % (45.0-75.0); PLATELET COUNT 438 K/UL (150-450); RED BLOOD COUNT 3.05 M/UL (4.70-6.10); RED CELL DISTRIBUTION WIDTH 13.1 % (11.6-14.8); WHITE BLOOD COUNT 12.2 K/UL (4.8-10.8)
[2018-06-08 06:47] LABS: ANION GAP 5 mmol/L (5-15); BLOOD UREA NITROGEN 10 mg/dL (7-18); CARBON DIOXIDE 32 MMOL/L (21-32); CHLORIDE 101 MMOL/L (98-107); CREATININE 0.5 MG/DL (0.55-1.30); POTASSIUM 3.5 MMOL/L (3.5-5.1); SODIUM 138 MMOL/L (136-145)
[2018-06-08 08:00] VITALS: BP 102/63
--- NOTE | 2018-06-08 08:01 | Infectious Diseases Prog Note ---
Assessment/Plan Assessment/Plan The patient is a 58-year-old unfortunate male with: Sepsis/septic shock. 06/01 - BCx NGTD 06/02 - BCx NGTD UTI (complicated) in the setting of urinary obstruction. 06/01/18 - UCx E. Coli Fever - resolved Leukocytosis - Improving CKD versus FARHANA. PLAN: - Continue Ceftriaxone #4/7 - 06/05 SP - IV ertapenem #4 and vancomycin #4 06/02 SP Amikacin #1 - Monitor CBC. - Monitor BMP. - Monitor cultures (blood). - Monitor chest x-ray. We will follow the patient with you during this admission. Subjective Allergies: Coded Allergies: DIVALPROEX SODIUM (Verified Allergy, Unknown, 06/01/18) PENICILLINS (Unverified Allergy, Unknown, 06/01/18) Subjective Patient awake and alert Afebrile Objective Vital Signs Last 24 Hour Vital Signs Date Time Temp Pulse Resp B/P (MAP) Pulse Ox O2 Delivery O2 Flow Rate FiO2 06/08/18 04:00 97.2 93 19 107/64 (78) 98 97.2 06/08/18 00:00 97.1 80 19 117/65 (82) 98 97.1 06/07/18 21:00 Room Air 06/07/18 20:14 98 Room Air 06/07/18 20:14 Room Air 06/07/18 20:13 89 18 Nasal Cannula 2.0 28 06/07/18 20:00 97.7 91 19 100/61 (74) 94 97.7 06/07/18 16:00 97.5 97 17 92/58 (69) 100 97.5 06/07/18 12:00 97.5 102 16 88/56 (67) 97 97.5 06/07/18 08:45 Nasal Cannula 2.0 06/07/18 08:12 81 18 Nasal Cannula 2.0 28 06/07/18 08:12 98 Nasal Cannula 2.0 28 06/07/18 08:12 Nasal Cannula 2.0 28 Height (Feet): 5 Height (Inches): 10.00 Weight (Pounds): 154 Objective GEN: NAD, Laying in bed HEENT: NCAT, MMM No icterus. CHEST: CTAB, No W ABD: Soft, NT, ND, Feeding tube in place. HEART: RRR, S1, S2 EXTREMITIES: Left BKA. GENITOURINARY: Vargas catheter in place. Laboratory Tests Test 06/08/18 05:30 White Blood Count 12.2 K/UL (4.8-10.8) H Red Blood Count 3.05 M/UL (4.70-6.10) L Hemoglobin 9.5 G/DL (14.2-18.0) L Hematocrit 28.1 % (42.0-52.0) L Mean Corpuscular Volume 92 FL (80-99) Mean Corpuscular Hemoglobin 31.2 PG (27.0-31.0) H Mean Corpuscular Hemoglobin Concent 33.9 G/DL (32.0-36.0) Red Cell Distribution Width 13.1 % (11.6-14.8) Platelet Count 438 K/UL (150-450) Mean Platelet Volume 7.0 FL (6.5-10.1) Neutrophils (%) (Auto) 76.9 % (45.0-75.0) H Lymphocytes (%) (Auto) 13.9 % (20.0-45.0) L Monocytes (%) (Auto) 6.3 % (1.0-10.0) Eosinophils (%) (Auto) 2.7 % (0.0-3.0) Basophils (%) (Auto) 0.2 % (0.0-2.0) Sodium Level 138 MMOL/L (136-145) Potassium Level 3.5 MMOL/L (3.5-5.1) Chloride Level 101 MMOL/L (98-107) Carbon Dioxide Level 32 MMOL/L (21-32) Anion Gap 5 mmol/L (5-15) Blood Urea Nitrogen 10 mg/dL (7-18) Creatinine 0.5 MG/DL (0.55-1.30) L Estimat Glomerular Filtration Rate > 60 mL/min (>60) Glucose Level 160 MG/DL (74-106) H Calcium Level 9.0 MG/DL (8.5-10.1) Current Medications Medications (Trade) Dose Ordered Sig/Cristofer Route PRN Reason Start Time Stop Time Status Last Admin Dose Admin Acetaminophen (Tylenol) 650 mg Q4H PRN ORAL fever 06/04/18 13:45 07/02/18 09:44 Ceftriaxone Sodium 1 gm/ Dextrose 55 ml @ 110 mls/hr Q24H IVPB 06/05/18 10:00 06/12/18 09:59 06/07/18 09:16 Chlorhexidine Gluconate (Aileen-Hex 2%) 1 applic DAILY@2000 TOPIC 06/04/18 20:00 07/02/18 19:59 06/07/18 20:57 Dextrose (Dextrose 50%) 25 ml STAT PRN IV Hypoglycemia 06/04/18 12:54 07/01/18 12:53 Dextrose (Dextrose 50%) 50 ml STAT PRN IV Hypoglycemia 06/04/18 12:54 07/01/18 12:53 Heparin Sodium (Porcine) (Heparin 5000 units/ml) 5,000 units EVERY 12 HOURS SUBQ 06/04/18 21:00 07/02/18 08:59 06/07/18 20:58 Insulin Aspart (NovoLOG) Q6HR SUBQ 06/04/18 18:00 07/02/18 00:00 06/08/18 05:39 Lansoprazole (Prevacid) 30 mg DAILY GT 06/07/18 09:00 07/07/18 08:59 06/07/18 09:16 Levetiracetam (Keppra) 500 mg Q12HR NG 06/04/18 21:00 07/02/18 00:05 06/07/18 20:57 Midodrine (Pro-Amatine) 10 mg Q8HR ORAL 06/04/18 14:00 07/03/18 17:59 06/08/18 05:40 Ondansetron HCl (Zofran) 4 mg Q6H PRN IVP Nausea & Vomiting 06/04/18 15:45 07/02/18 09:44 Polyethylene Glycol (Miralax) 17 gm DAILYPRN PRN ORAL Constipation 06/04/18 12:55 07/04/18 12:54 Quetiapine Fumarate (SEROquel) 25 mg Q6H PRN ORAL For Anxiety 06/05/18 15:15 07/05/18 15:14 Jacek Davenport MD Jun 08, 2018 08:01
[2018-06-08] MEDS: levETIRAcetam 500mg/5ml Liquid NG SCH (08:24)
[2018-06-08] MEDS: Heparin 5000 units/ml inj SUBQ SCH (08:25)
[2018-06-08] MEDS: cefTRIAXone 1 GM in D5W 55 ML IVPB SCH (09:35)
--- NOTE | 2018-06-08 10:36 | Diagnostic Imaging Report ---
Indication: Pain Findings: 3 views of the right shoulder were obtained. No acute fractures, malalignment, erosions or periostitis are identified. Soft tissues are unremarkable. There is a right subclavian line incidentally noted. Impression: Negative for acute injury
--- NOTE | 2018-06-08 10:37 | Diagnostic Imaging Report ---
Indication: Pain right ankle ankle pain/trauma Comparison: None Findings: 3 views of the right ankle obtained. No acute fracture, malalignment, periostitis, or osteochondral defects are identified. Soft tissues are unremarkable. Impression: Negative examination
--- NOTE | 2018-06-08 10:48 | GI Progress Note ---
Assessment/Plan Problems: (1) Amputated left leg ICD Codes: Z89.612 - Acquired absence of left leg above knee SNOMED: 030667870 (2) feeding by Jt (3) Sepsis ICD Codes: A41.9 - Sepsis, unspecified organism SNOMED: 72598393, 828582577 (4) Diabetes ICD Codes: E11.9 - Type 2 diabetes mellitus without complications SNOMED: 68577963 (5) Septic shock ICD Codes: A41.9 - Sepsis, unspecified organism; R65.21 - Severe sepsis with septic shock SNOMED: 71896871 (6) Renal insufficiency ICD Codes: N28.9 - Disorder of kidney and ureter, unspecified SNOMED: 443658908, 386378905 (7) Hypoalbuminemia ICD Codes: E88.09 - Other disorders of plasma-protein metabolism, not elsewhere classified SNOMED: 887283104 Status: stable Status Narrative Discussed with Dr. Mcneil. Assessment/Plan OB stool negative cont GJFs to goal prn transfusions abx per ID PO/IV hydration fu labs supportive care dc planning The patient was seen and examined at bedside and all new and available data was reviewed in the patients chart. I agree with the above findings, impression and plan. (Patient seen earlier today. Signature stamp does not reflect patient encounter time.). - Louis Mcneil MD Subjective Subjective limited Objective Last 24 Hour Vital Signs Date Time Temp Pulse Resp B/P (MAP) Pulse Ox O2 Delivery O2 Flow Rate FiO2 06/08/18 10:28 Nasal Cannula 2.0 28 06/08/18 10:28 94 18 Nasal Cannula 2.0 28 06/08/18 10:28 95 Nasal Cannula 2.0 28 06/08/18 09:00 Room Air 06/08/18 08:00 97.4 90 18 102/63 (76) 97 97.4 06/08/18 04:00 97.2 93 19 107/64 (78) 98 97.2 06/08/18 00:00 97.1 80 19 117/65 (82) 98 97.1 06/07/18 21:00 Room Air 06/07/18 20:14 98 Room Air 06/07/18 20:14 Room Air 06/07/18 20:13 89 18 Nasal Cannula 2.0 28 06/07/18 20:00 97.7 91 19 100/61 (74) 94 97.7 06/07/18 16:00 97.5 97 17 92/58 (69) 100 97.5 06/07/18 12:00 97.5 102 16 88/56 (67) 97 97.5 Intake and Output 06/07/18 06/08/18 19:00 07:00 Intake Total 115 ml 1020 ml Output Total 2500 ml 2500 ml Balance -2385 ml -1480 ml Free Water 300 ml IV Total 55 ml Tube Feeding 60 ml 720 ml Output Urine Total 2500 ml 2500 ml # Bowel Movements 1 Laboratory Tests Test 06/08/18 05:30 White Blood Count 12.2 K/UL (4.8-10.8) H Red Blood Count 3.05 M/UL (4.70-6.10) L Hemoglobin 9.5 G/DL (14.2-18.0) L Hematocrit 28.1 % (42.0-52.0) L Mean Corpuscular Volume 92 FL (80-99) Mean Corpuscular Hemoglobin 31.2 PG (27.0-31.0) H Mean Corpuscular Hemoglobin Concent 33.9 G/DL (32.0-36.0) Red Cell Distribution Width 13.1 % (11.6-14.8) Platelet Count 438 K/UL (150-450) Mean Platelet Volume 7.0 FL (6.5-10.1) Neutrophils (%) (Auto) 76.9 % (45.0-75.0) H Lymphocytes (%) (Auto) 13.9 % (20.0-45.0) L Monocytes (%) (Auto) 6.3 % (1.0-10.0) Eosinophils (%) (Auto) 2.7 % (0.0-3.0) Basophils (%) (Auto) 0.2 % (0.0-2.0) Sodium Level 138 MMOL/L (136-145) Potassium Level 3.5 MMOL/L (3.5-5.1) Chloride Level 101 MMOL/L (98-107) Carbon Dioxide Level 32 MMOL/L (21-32) Anion Gap 5 mmol/L (5-15) Blood Urea Nitrogen 10 mg/dL (7-18) Creatinine 0.5 MG/DL (0.55-1.30) L Estimat Glomerular Filtration Rate > 60 mL/min (>60) Glucose Level 160 MG/DL (74-106) H Calcium Level 9.0 MG/DL (8.5-10.1) Height (Feet): 5 Height (Inches): 10.00 Weight (Pounds): 154 General Appearance: alert, thin Cardiovascular: normal rate Respiratory/Chest: normal breath sounds Abdominal Exam: other - Finn Gilbert NP Jun 08, 2018 10:48
[2018-06-08 12:00] VITALS: BP 91/65
[2018-06-08] MEDS ORDERED: KEPPRA LIQ100 MG/1 M NG (13:12)
[2018-06-08] MEDS ORDERED: SEROQUEL25 MG ORAL (13:12)
[2018-06-08] MEDS ORDERED: PRO-AMATINE10 MG ORAL (13:12)
[2018-06-08] MEDS ORDERED: CEFTRIAXONE1 G2 IV (13:12)
--- NOTE | 2018-06-08 13:14 | Pulmonology Progress Note ---
Assessment/Plan Problems: (1) Sepsis (2) UTI (urinary tract infection) (3) Hypoalbuminemia (4) feeding by Jt (5) Amputated left leg (6) HTN (hypertension) (7) Alzheimer's dementia Assessment/Plan wbc decreasing, afebrile confused improving continue abx check electrolytes watch WBC f/u cultures dc with IV abx at the care home Subjective ROS Limited/Unobtainable: No Constitutional: Reports: no symptoms HEENT: Repors: no symptoms Respiratory: Reports: no symptoms Allergies: Coded Allergies: DIVALPROEX SODIUM (Verified Allergy, Unknown, 06/01/18) PENICILLINS (Unverified Allergy, Unknown, 06/01/18) Objective Last 24 Hour Vital Signs Date Time Temp Pulse Resp B/P (MAP) Pulse Ox O2 Delivery O2 Flow Rate FiO2 06/08/18 12:00 97.5 106 17 91/65 (74) 96 97.5 06/08/18 10:28 Nasal Cannula 2.0 28 06/08/18 10:28 94 18 Nasal Cannula 2.0 28 06/08/18 10:28 95 Nasal Cannula 2.0 28 06/08/18 09:00 Room Air 06/08/18 08:00 97.4 90 18 102/63 (76) 97 97.4 06/08/18 04:00 97.2 93 19 107/64 (78) 98 97.2 06/08/18 00:00 97.1 80 19 117/65 (82) 98 97.1 06/07/18 21:00 Room Air 06/07/18 20:14 98 Room Air 06/07/18 20:14 Room Air 06/07/18 20:13 89 18 Nasal Cannula 2.0 28 06/07/18 20:00 97.7 91 19 100/61 (74) 94 97.7 06/07/18 16:00 97.5 97 17 92/58 (69) 100 97.5 Intake and Output 06/07/18 06/08/18 19:00 07:00 Intake Total 115 ml 1020 ml Output Total 2500 ml 2500 ml Balance -2385 ml -1480 ml Free Water 300 ml IV Total 55 ml Tube Feeding 60 ml 720 ml Output Urine Total 2500 ml 2500 ml # Bowel Movements 1 General Appearance: WD/WN HEENT: atraumatic Respiratory/Chest: chest wall non-tender, no respiratory distress Cardiovascular: normal peripheral pulses, normal rate Abdomen: normal bowel sounds, soft, non tender Genitourinary: normal external genitalia Extremities: no clubbing Skin: no rash Laboratory Tests 06/08/18 05:30: White Blood Count 12.2H, Red Blood Count 3.05L, Hemoglobin 9.5L, Hematocrit 28.1L, Mean Corpuscular Volume 92, Mean Corpuscular Hemoglobin 31.2H, Mean Corpuscular Hemoglobin Concent 33.9, Red Cell Distribution Width 13.1, Platelet Count 438, Mean Platelet Volume 7.0, Neutrophils (%) (Auto) 76.9H, Lymphocytes ( %) (Auto) 13.9L, Monocytes (%) (Auto) 6.3, Eosinophils (%) (Auto) 2.7, Basophils (%) (Auto) 0.2, Sodium Level 138, Potassium Level 3.5, Chloride Level 101, Carbon Dioxide Level 32, Anion Gap 5, Blood Urea Nitrogen 10, Creatinine 0.5L, Estimat Glomerular Filtration Rate > 60, Glucose Level 160H, Calcium Level 9.0 Current Medications Medications (Trade) Dose Ordered Sig/Cristofer Route PRN Reason Start Time Stop Time Status Last Admin Dose Admin Acetaminophen (Tylenol) 650 mg Q4H PRN ORAL fever 06/04/18 13:45 07/02/18 09:44 Ceftriaxone Sodium 1 gm/ Dextrose 55 ml @ 110 mls/hr Q24H IVPB 06/05/18 10:00 06/12/18 09:59 06/08/18 09:35 Chlorhexidine Gluconate (Aileen-Hex 2%) 1 applic DAILY@2000 TOPIC 06/04/18 20:00 07/02/18 19:59 06/07/18 20:57 Dextrose (Dextrose 50%) 25 ml STAT PRN IV Hypoglycemia 06/04/18 12:54 07/01/18 12:53 Dextrose (Dextrose 50%) 50 ml STAT PRN IV Hypoglycemia 06/04/18 12:54 07/01/18 12:53 Heparin Sodium (Porcine) (Heparin 5000 units/ml) 5,000 units EVERY 12 HOURS SUBQ 06/04/18 21:00 07/02/18 08:59 06/08/18 08:25 Insulin Aspart (NovoLOG) Q6HR SUBQ 06/04/18 18:00 07/02/18 00:00 06/08/18 12:22 Lansoprazole (Prevacid) 30 mg DAILY GT 06/07/18 09:00 07/07/18 08:59 06/08/18 08:25 Levetiracetam (Keppra) 500 mg Q12HR NG 06/04/18 21:00 07/02/18 00:05 06/08/18 08:24 Midodrine (Pro-Amatine) 10 mg Q8HR ORAL 06/04/18 14:00 07/03/18 17:59 06/08/18 05:40 Ondansetron HCl (Zofran) 4 mg Q6H PRN IVP Nausea & Vomiting 06/04/18 15:45 07/02/18 09:44 Polyethylene Glycol (Miralax) 17 gm DAILYPRN PRN ORAL Constipation 06/04/18 12:55 07/04/18 12:54 Quetiapine Fumarate (SEROquel) 25 mg Q6H PRN ORAL For Anxiety 06/05/18 15:15 07/05/18 15:14 Dony Sanchez MD Jun 08, 2018 13:14
--- NOTE | 2018-06-08 13:37 | Nephrology Progress Note ---
Assessment/Plan Problem List: (1) Septic shock (2) ATN (acute tubular necrosis) (3) UTI (urinary tract infection) (4) feeding by Jt (5) Hypoalbuminemia Assessment OFF pressors Acute renal failure- Likely urinary retention Hypotension, on Pressors Sever Anemia UTI , Pneumonia, Amputated left leg Plan DC Hydrocortisone mag and Phos IV Transfused Hydrate ferreira Avoid Nephrotoxics monitor renal parameters Midodrine Albumin bolus as needed Med surg Subjective ROS Limited/Unobtainable: No Objective Objective Last 24 Hour Vital Signs Date Time Temp Pulse Resp B/P (MAP) Pulse Ox O2 Delivery O2 Flow Rate FiO2 06/08/18 12:00 97.5 106 17 91/65 (74) 96 97.5 06/08/18 10:28 Nasal Cannula 2.0 28 06/08/18 10:28 94 18 Nasal Cannula 2.0 06/08/18 10:28 95 Nasal Cannula 2.0 28 06/08/18 09:00 Room Air 06/08/18 08:00 97.4 90 18 102/63 (76) 97 97.4 06/08/18 04:00 97.2 93 19 107/64 (78) 98 97.2 06/08/18 00:00 97.1 80 19 117/65 (82) 98 97.1 06/07/18 21:00 Room Air 06/07/18 20:14 98 Room Air 06/07/18 20:14 Room Air 06/07/18 20:13 89 18 Nasal Cannula 2.0 28 06/07/18 20:00 97.7 91 19 100/61 (74) 94 97.7 06/07/18 16:00 97.5 97 17 92/58 (69) 100 97.5 Intake and Output 06/07/18 06/08/18 19:00 07:00 Intake Total 115 ml 1020 ml Output Total 2500 ml 2500 ml Balance -2385 ml -1480 ml Free Water 300 ml IV Total 55 ml Tube Feeding 60 ml 720 ml Output Urine Total 2500 ml 2500 ml # Bowel Movements 1 Laboratory Tests 06/08/18 05:30: White Blood Count 12.2H, Red Blood Count 3.05L, Hemoglobin 9.5L, Hematocrit 28.1L, Mean Corpuscular Volume 92, Mean Corpuscular Hemoglobin 31.2H, Mean Corpuscular Hemoglobin Concent 33.9, Red Cell Distribution Width 13.1, Platelet Count 438, Mean Platelet Volume 7.0, Neutrophils (%) (Auto) 76.9H, Lymphocytes ( %) (Auto) 13.9L, Monocytes (%) (Auto) 6.3, Eosinophils (%) (Auto) 2.7, Basophils (%) (Auto) 0.2, Sodium Level 138, Potassium Level 3.5, Chloride Level 101, Carbon Dioxide Level 32, Anion Gap 5, Blood Urea Nitrogen 10, Creatinine 0.5L, Estimat Glomerular Filtration Rate > 60, Glucose Level 160H, Calcium Level 9.0 Height (Feet): 5 Height (Inches): 10.00 Weight (Pounds): 154 General Appearance: no apparent distress, lethargic Cardiovascular: tachycardia Respiratory/Chest: decreased breath sounds Abdomen: soft Objective no other change Jose Menon MD Jun 08, 2018 13:37
--- NOTE | 2018-06-08 13:40 | General Progress Note ---
Assessment/Plan Problem List: (1) Encephalopathy due to metabolic factor or toxin SNOMED: 585787846 (2) MDD (major depressive disorder), recurrent episode, moderate ICD Codes: F33.1 - Major depressive disorder, recurrent, moderate SNOMED: 05229202, 935440808 Assessment/Plan seroquel prn the pt lacks capacity to make decisions Subjective Date patient seen: Jun 08, 2018 Neurologic/Psychiatric: Reports: anxiety Allergies: Coded Allergies: DIVALPROEX SODIUM (Verified Allergy, Unknown, 06/01/18) PENICILLINS (Unverified Allergy, Unknown, 06/01/18) Objective Last 24 Hour Vital Signs Date Time Temp Pulse Resp B/P (MAP) Pulse Ox O2 Delivery O2 Flow Rate FiO2 06/08/18 12:00 97.5 106 17 91/65 (74) 96 97.5 06/08/18 10:28 Nasal Cannula 2.0 28 06/08/18 10:28 94 18 Nasal Cannula 2.0 28 06/08/18 10:28 95 Nasal Cannula 2.0 28 06/08/18 09:00 Room Air 06/08/18 08:00 97.4 90 18 102/63 (76) 97 97.4 06/08/18 04:00 97.2 93 19 107/64 (78) 98 97.2 06/08/18 00:00 97.1 80 19 117/65 (82) 98 97.1 06/07/18 21:00 Room Air 06/07/18 20:14 98 Room Air 06/07/18 20:14 Room Air 06/07/18 20:13 89 18 Nasal Cannula 2.0 28 06/07/18 20:00 97.7 91 19 100/61 (74) 94 97.7 06/07/18 16:00 97.5 97 17 92/58 (69) 100 97.5 Intake and Output 06/07/18 06/08/18 19:00 07:00 Intake Total 115 ml 1020 ml Output Total 2500 ml 2500 ml Balance -2385 ml -1480 ml Free Water 300 ml IV Total 55 ml Tube Feeding 60 ml 720 ml Output Urine Total 2500 ml 2500 ml # Bowel Movements 1 Laboratory Tests 06/08/18 05:30: White Blood Count 12.2H, Red Blood Count 3.05L, Hemoglobin 9.5L, Hematocrit 28.1L, Mean Corpuscular Volume 92, Mean Corpuscular Hemoglobin 31.2H, Mean Corpuscular Hemoglobin Concent 33.9, Red Cell Distribution Width 13.1, Platelet Count 438, Mean Platelet Volume 7.0, Neutrophils (%) (Auto) 76.9H, Lymphocytes ( %) (Auto) 13.9L, Monocytes (%) (Auto) 6.3, Eosinophils (%) (Auto) 2.7, Basophils (%) (Auto) 0.2, Sodium Level 138, Potassium Level 3.5, Chloride Level 101, Carbon Dioxide Level 32, Anion Gap 5, Blood Urea Nitrogen 10, Creatinine 0.5L, Estimat Glomerular Filtration Rate > 60, Glucose Level 160H, Calcium Level 9.0 Height (Feet): 5 Height (Inches): 10.00 Weight (Pounds): 154 General Appearance: no apparent distress, alert, confused Katherine Orozco MD Jun 08, 2018 13:40
--- NOTE | 2018-06-08 13:52 | General Surgery Progress Note ---
General Surgery-Progress Note Subjective Additional Comments leukocytosis improving Objective Last 24 Hour Vital Signs Date Time Temp Pulse Resp B/P (MAP) Pulse Ox O2 Delivery O2 Flow Rate FiO2 06/08/18 12:00 97.5 106 17 91/65 (74) 96 97.5 06/08/18 10:28 Nasal Cannula 2.0 28 06/08/18 10:28 94 18 Nasal Cannula 2.0 28 06/08/18 10:28 95 Nasal Cannula 2.0 28 06/08/18 09:00 Room Air 06/08/18 08:00 97.4 90 18 102/63 (76) 97 97.4 06/08/18 04:00 97.2 93 19 107/64 (78) 98 97.2 06/08/18 00:00 97.1 80 19 117/65 (82) 98 97.1 06/07/18 21:00 Room Air 06/07/18 20:14 98 Room Air 06/07/18 20:14 Room Air 06/07/18 20:13 89 18 Nasal Cannula 2.0 28 06/07/18 20:00 97.7 91 19 100/61 (74) 94 97.7 06/07/18 16:00 97.5 97 17 92/58 (69) 100 97.5 I&O Intake and Output 06/07/18 06/08/18 19:00 07:00 Intake Total 115 ml 1020 ml Output Total 2500 ml 2500 ml Balance -2385 ml -1480 ml Free Water 300 ml IV Total 55 ml Tube Feeding 60 ml 720 ml Output Urine Total 2500 ml 2500 ml # Bowel Movements 1 Laboratory Tests Test 06/08/18 05:30 White Blood Count 12.2 K/UL (4.8-10.8) H Red Blood Count 3.05 M/UL (4.70-6.10) L Hemoglobin 9.5 G/DL (14.2-18.0) L Hematocrit 28.1 % (42.0-52.0) L Mean Corpuscular Volume 92 FL (80-99) Mean Corpuscular Hemoglobin 31.2 PG (27.0-31.0) H Mean Corpuscular Hemoglobin Concent 33.9 G/DL (32.0-36.0) Red Cell Distribution Width 13.1 % (11.6-14.8) Platelet Count 438 K/UL (150-450) Mean Platelet Volume 7.0 FL (6.5-10.1) Neutrophils (%) (Auto) 76.9 % (45.0-75.0) H Lymphocytes (%) (Auto) 13.9 % (20.0-45.0) L Monocytes (%) (Auto) 6.3 % (1.0-10.0) Eosinophils (%) (Auto) 2.7 % (0.0-3.0) Basophils (%) (Auto) 0.2 % (0.0-2.0) Sodium Level 138 MMOL/L (136-145) Potassium Level 3.5 MMOL/L (3.5-5.1) Chloride Level 101 MMOL/L (98-107) Carbon Dioxide Level 32 MMOL/L (21-32) Anion Gap 5 mmol/L (5-15) Blood Urea Nitrogen 10 mg/dL (7-18) Creatinine 0.5 MG/DL (0.55-1.30) L Estimat Glomerular Filtration Rate > 60 mL/min (>60) Glucose Level 160 MG/DL (74-106) H Calcium Level 9.0 MG/DL (8.5-10.1) Plan Problems: (1) Sepsis Assessment & Plan: Patient known to me. Seen yesterday for urgent central line placement given sepsis and requirements during work up noted recent surgical placed j tube. also urosepsis. awake and responsive. he is unsure of what happened but is able to follow commands. records reviewed. abdomen examined. midline wound c/d/i with surgical milind. no signs of infection or complication. j tube is a red rubber catheter and patent/functional. KUB reviewed. wound c/d/i. -unlikely etiology of sepsis recent surgery and feeding tube. likely urosepsis -okay to use feeding tube -cont current care and management thank you Shiv Horvath Jun 08, 2018 13:52
--- NOTE | 2018-06-08 15:01 | Internal Med Progress Note ---
Subjective Physician Name Ean Joyce Attending Physician Ean Joyce MD Current Medications Medications (Trade) Dose Ordered Sig/Cristofer Route PRN Reason Start Time Stop Time Status Last Admin Dose Admin Acetaminophen (Tylenol) 650 mg Q4H PRN ORAL fever 06/04/18 13:45 07/02/18 09:44 Ceftriaxone Sodium 1 gm/ Dextrose 55 ml @ 110 mls/hr Q24H IVPB 06/05/18 10:00 06/12/18 09:59 06/08/18 09:35 Chlorhexidine Gluconate (Aileen-Hex 2%) 1 applic DAILY@2000 TOPIC 06/04/18 20:00 07/02/18 19:59 06/07/18 20:57 Dextrose (Dextrose 50%) 25 ml STAT PRN IV Hypoglycemia 06/04/18 12:54 07/01/18 12:53 Dextrose (Dextrose 50%) 50 ml STAT PRN IV Hypoglycemia 06/04/18 12:54 07/01/18 12:53 Heparin Sodium (Porcine) (Heparin 5000 units/ml) 5,000 units EVERY 12 HOURS SUBQ 06/04/18 21:00 07/02/18 08:59 06/08/18 08:25 Insulin Aspart (NovoLOG) Q6HR SUBQ 06/04/18 18:00 07/02/18 00:00 06/08/18 12:22 Lansoprazole (Prevacid) 30 mg DAILY GT 06/07/18 09:00 07/07/18 08:59 06/08/18 08:25 Levetiracetam (Keppra) 500 mg Q12HR NG 06/04/18 21:00 07/02/18 00:05 06/08/18 08:24 Midodrine (Pro-Amatine) 10 mg Q8HR ORAL 06/04/18 14:00 07/03/18 17:59 06/08/18 14:14 Ondansetron HCl (Zofran) 4 mg Q6H PRN IVP Nausea & Vomiting 06/04/18 15:45 07/02/18 09:44 Polyethylene Glycol (Miralax) 17 gm DAILYPRN PRN ORAL Constipation 06/04/18 12:55 07/04/18 12:54 Quetiapine Fumarate (SEROquel) 25 mg Q6H PRN ORAL For Anxiety 06/05/18 15:15 07/05/18 15:14 Allergies: Coded Allergies: DIVALPROEX SODIUM (Verified Allergy, Unknown, 06/01/18) PENICILLINS (Unverified Allergy, Unknown, 06/01/18) Subjective awake, responsive, single word response, NAD Objective Last Vital Signs Date Time Temp Pulse Resp B/P (MAP) Pulse Ox O2 Delivery O2 Flow Rate FiO2 06/08/18 12:00 97.5 106 17 91/65 (74) 96 97.5 06/08/18 10:28 Nasal Cannula 2.0 28 Laboratory Tests Test 06/08/18 05:30 White Blood Count 12.2 K/UL (4.8-10.8) H Red Blood Count 3.05 M/UL (4.70-6.10) L Hemoglobin 9.5 G/DL (14.2-18.0) L Hematocrit 28.1 % (42.0-52.0) L Mean Corpuscular Volume 92 FL (80-99) Mean Corpuscular Hemoglobin 31.2 PG (27.0-31.0) H Mean Corpuscular Hemoglobin Concent 33.9 G/DL (32.0-36.0) Red Cell Distribution Width 13.1 % (11.6-14.8) Platelet Count 438 K/UL (150-450) Mean Platelet Volume 7.0 FL (6.5-10.1) Neutrophils (%) (Auto) 76.9 % (45.0-75.0) H Lymphocytes (%) (Auto) 13.9 % (20.0-45.0) L Monocytes (%) (Auto) 6.3 % (1.0-10.0) Eosinophils (%) (Auto) 2.7 % (0.0-3.0) Basophils (%) (Auto) 0.2 % (0.0-2.0) Sodium Level 138 MMOL/L (136-145) Potassium Level 3.5 MMOL/L (3.5-5.1) Chloride Level 101 MMOL/L (98-107) Carbon Dioxide Level 32 MMOL/L (21-32) Anion Gap 5 mmol/L (5-15) Blood Urea Nitrogen 10 mg/dL (7-18) Creatinine 0.5 MG/DL (0.55-1.30) L Estimat Glomerular Filtration Rate > 60 mL/min (>60) Glucose Level 160 MG/DL (74-106) H Calcium Level 9.0 MG/DL (8.5-10.1) Intake and Output 06/07/18 06/08/18 19:00 07:00 Intake Total 115 ml 1020 ml Output Total 2500 ml 2500 ml Balance -2385 ml -1480 ml Free Water 300 ml IV Total 55 ml Tube Feeding 60 ml 720 ml Output Urine Total 2500 ml 2500 ml # Bowel Movements 1 Objective General: No acute distress, awake and responsive, NAD HEENT: NCAT, sclera anicteric, PERRL, EOMI. Neck: Supple, no significant jugular venous distention, Lungs: Fair inspiratory effort, decrease breath sound on bases, no Wheeze, Right side chest wall TLC. Heart: Regular rate and rhythm, normal S1/S2, no murmurs Abdomen: soft, nontender, nondistended. Normoactive bowel sounds, PEG site intact. : Vargas cath Extremities: No Cyanosis , clubbing or edema. Neuro: A&O x 3, Able to move upper extremities slowly. Left BKA. Skin: warm, no rashes Assessment/Plan Assessment/Plan (1) HTN (hypertension) (2) Alzheimer's dementia (3) Fever (4) Altered mental status (5) E. Coli UTI (urinary tract infection) (6) Septic shock Plan: Abx: Ertapenem Monitor Labs and cultures DC Planning to SNF. Full code Ean Joyce MD Jun 08, 2018 15:01
[2018-06-08 16:00] VITALS: BP 102/66
[2018-06-08] MEDS ORDERED: NS 275ml ONE (16:19)
--- NOTE | 2018-06-10 14:13 | Discharge Summary ---
Discharge Summary Discharge Summary _ DATE OF ADMISSION: 06/01/2018 DATE OF DISCHARGE: 06/08/2018 REASON FOR ADMISSION: 58 years old male with past medical history of hypertension, Alzheimer dementia , left lower extremity BKA, seizure disorder, dysphagia , J-tube recently placed , depression, diabetes mellitus, was sent from the long-term facility for evaluation ,due to fever and generalized weakness. Vital signs revealed no fever but show ed hypotension and tachycardia. Laboratory workup revealed leukocytosis with WBC 18.3. Hemoglobin 8.5, hematocrit 24.3 Urinalysis positive for UTI. Sodium 128 ,potassium 5.1, BUN 61, creatinine 3.7. Lactic acid 1.6. LFT stable. Glucose 148. Troponin negative. Chest x-ray revealed atelectasis in the right lung base. Patient admitted with diagnoses of hypotension, shock ,sepsis , urinary tract infection, possible pneumonia. CONSULTANTS: pulmonary Dr. Sanchez ID specialist Dr. Dodson GI specialist dr. Mcneil bottom loader Dr. Menon surgery Dr. Horvath psychiatrist [facility] COURSE: Patient initially admitted to ICU . Patient was started on IV fludis. Patient was on pressors for hemodynamic support. Central line was placed by surgeon. Hemodynamic status was closely monitored. Echocardiogram was done; ejection fraction appeared to be within normal. Patient started on IV fluids and empiric antibiotics. Infectious disease specialist directed antibiotic treatment. Blood culture were negative, urine culture revealed Escherichia coli, sputum culture was negative. According to infectious disease doctor recommendations, patient need to complete antibiotic regimen at the facility. Leukocytosis trending down, 12, prior to discharge, no fevers,. Supplemental oxygen provided as needed to keep pulse oximetry above 92%. Pulmonary toilet provided as needed. Blood pressure was supported with midodrine. Patient subsequently was able to be weaned off pressors. Renal parameters and electrolytes were closely monitored. Electrolytes corrected as needed, and nephrotoxins were avoided. Acute renal failure was likely due to septic shock and resolved with IV hydration and as patient clinically improved. Prior to discharge BUN 10 and creatinine 0.5. Electrolytes stable. Albumin boluses provided as needed. Patient initially was on stress dose of steroids, which subsequently tapered down and discontinued. Seizure precautions were maintained. Keppra was continued. No seizure activity while in the hospital. J tube feeding started with strict aspiration/ reflux precautions. J-tube site care provided. Patient was able to tolerate tube feeding. Blood sugar was managed with sliding scale of insulin and remained stable. Hemoglobin and hematocrit were closely monitored with goal to keep hemoglobin above 7. Patient undergone transfusion of 1 unit of packed red blood cells. Stool for occult blood was negative. Anemia workup was consistent with anemia of chronic disease. Prior to discharge hemoglobin 9.5 hematocrit 28.1. GI specialist closely followed. Pain management was addressed, and pain was controlled. Bowel regimen instituted. Supportive care provided. Psychiatrist closely followed . Per psychiatrist , patient lacked capacity to make an informed decision. Psychiatric medication regimen optimized. Patient clinically stabilized and was ready for discharge to long-term facility for continuation of care. FINAL DIAGNOSES: Septic shock Sepsis Complicated UTI with Escherichia coli in setting of urinary obstruction Acute tubular necrosis, resolved Encephalopathy due to metabolic factor or toxin Hypertension Alzheimer dementia BKA left lower extremity Seizure disorder G-tube feeding Major depressive disorder Hypoalbuminemia Anemia of chronic disease DISCHARGE MEDICATIONS: See Medication Reconciliation list. DISCHARGE INSTRUCTIONS: Patient was discharged to the long-term facility. Follow up with medical doctor at the facility. I have been assigned to dictate discharge summary for this account. I was not involved in the patient's management. Claudia Keita NP Jun 10, 2018 14:13
== END 2018-06-08 16:20 | DRG 720 ==
LOC: EDBD 18:38 → EMR 19:15 → ICU 20:40 → 2E 20:40 → UNDOADMIN 20:40 → EDBEDREQ 20:56 → EDBEDREQSVC 21:24 → 4E 06-04 12:30
PROC: 30233N1 Transfusion of Nonautologous Red Blood Cells into Peripheral Vein, Percutaneous Approach (ICD-10-PCS; principal; 2018-06-02)
PROC: 05H533Z Insertion of Infusion Device into Right Subclavian Vein, Percutaneous Approach (ICD-10-PCS; 2018-06-02)
DX: A41.9 Sepsis, unspecified organism (principal); N17.0 Acute kidney failure with tubular necrosis; R65.21 Severe sepsis with septic shock; G93.49 Other encephalopathy; N39.0 Urinary tract infection, site not specified; E88.09 Other disorders of plasma-protein metabolism, not elsewhere classified; F20.9 Schizophrenia, unspecified; B96.20 Unspecified Escherichia coli [E. coli] as the cause of diseases classified elsewhere; E10.9 Type 1 diabetes mellitus without complications; G30.9 Alzheimer's disease, unspecified; F02.80 Dementia in other diseases classified elsewhere, unspecified severity, without behavioral disturbance, psychotic disturbance, mood disturbance, and anxiety; Z79.4 Long term (current) use of insulin; I10 Essential (primary) hypertension; Z89.512 Acquired absence of left leg below knee; G40.909 Epilepsy, unspecified, not intractable, without status epilepticus; F32.9 Major depressive disorder, single episode, unspecified; D63.8 Anemia in other chronic diseases classified elsewhere; Z88.0 Allergy status to penicillin; Z88.8 Allergy status to other drugs, medicaments and biological substances; I69.359 Hemiplegia and hemiparesis following cerebral infarction affecting unspecified side; Z43.4 Encounter for attention to other artificial openings of digestive tract
CPT/HCPCS: 36415; 36600; 71045; 74018; 80048; 80053; 80061; 80076; 80202; 81003; 82150; 82270; 82378; 82550; 82553; 82607; 82728; 82746; 82803; 82962; 82977; 83540; 83550; 83605; 83690; 83735; 83880; 84100; 84300; 84443; 84484; 84550; 85007; 85025; 85610; 85651; 86140; 86850; 86900; 86901; 86920; 87040; 87070; 87081; 87086; 87181; 87205; 89050; 93005; 93306; 94664; 94760; J1815; S0077

== ENCOUNTER 2018-06-19 13:39 | Inpatient (IN) | payer MEDICAID ==
[~2018-06-19] VITALS: Ht 177.8 cm; Wt 58.2 kg
[~2018-06-19 13:39] MED LIST: CEFTRIAXONE1 G2 IV; FERROUS FUMARA324 M1 PO; KEPPRA LIQ100 MG/1 M NG; LEXAPRO10 MG ORAL; NOVOLOG100 UNIT/3 SUBQ; PRO-AMATINE10 MG ORAL; SEROQUEL25 MG ORAL; ZYPREXA10 MG ORAL
[2018-06-19 13:48] VITALS: BP 112/69
[2018-06-19] MEDS ORDERED: levETIRAcetam 500mg/NS100ml 100 ML IVPB ONE (14:00)
[2018-06-19 14:16] LABS: APPEARANCE,URINE CLEAR; BILIRUBIN, URINE NEGATIVE (NEGATIVE); GLUCOSE, URINE (UA) NEGATIVE (NEGATIVE); KETONES,URINE NEGATIVE (NEGATIVE); LEUKOCYTE ESTERASE ,URINE 1+ (NEGATIVE); NITRITE,URINE NEGATIVE (NEGATIVE); PH,URINE 8 (4.5-8.0); PROTEIN,URINE 2+ (NEGATIVE); UROBILINOGEN,URINE 1 MG/DL (0.0-1.0)
[2018-06-19 14:19] LABS: COLOR,URINE YELLOW
[2018-06-19 14:20] LABS: BASOPHILS % (AUTO) 0.5 % (0.0-2.0); HEMATOCRIT 33.6 % (42.0-52.0); HEMOGLOBIN 11.2 G/DL (14.2-18.0); LYMPHOCYTES % (AUTO) 10.4 % (20.0-45.0); MEAN CORPUSCULAR VOLUME 90 FL (80-99); MONOCYTES % (AUTO) 6.7 % (1.0-10.0); NEUTROPHILS % (AUTO) 82.4 % (45.0-75.0); PLATELET COUNT 384 K/UL (150-450); RED BLOOD COUNT 3.75 M/UL (4.70-6.10); RED CELL DISTRIBUTION WIDTH 13.2 % (11.6-14.8); WHITE BLOOD COUNT 11.3 K/UL (4.8-10.8)
[2018-06-19 14:30] LABS: ANION GAP 11 mmol/L (5-15); BLOOD UREA NITROGEN 19 mg/dL (7-18); CALCIUM 9.6 MG/DL (8.5-10.1); CARBON DIOXIDE 25 MMOL/L (21-32); CHLORIDE 98 MMOL/L (98-107); CREATININE 0.7 MG/DL (0.55-1.30); POTASSIUM 4.1 MMOL/L (3.5-5.1); SODIUM 134 MMOL/L (136-145)
--- NOTE | 2018-06-19 14:34 | Diagnostic Imaging Report ---
Indications: Altered mental status Technique: Spiral acquisitions obtained through the brain. Angled axial and coronal 5 x 5 mm slices were reconstructed. Total dose length product 1505.47 mGycm. CTDI vol(s) 70.38 mGy. Dose reduction achieved using automated exposure control Comparison: None. Findings: There is an area of encephalomalacia involving the posterior right frontal lobe at or adjacent to the operculum. No acute intracranial hemorrhage nor edema. No mass effect nor midline shift. Normal size ventricles and extra axial CSF spaces. There is a small focus of encephalomalacia in the right cerebellar hemisphere. Normal alejandro-white differentiation. There is evidence of prior bilateral cataract surgery. There is minimal ethmoid sinus and sphenoid sinus mucosal disease. The mastoids are clear. There is evidence of prior bilateral cataract surgery. The calvarium is intact. Impression: Negative for acute intracranial bleed or mass effect Right frontal and right cerebellar encephalomalacia, consistent with old infarcts. Minimal sinus disease The CT scanner at [facility] is accredited by the [employer] and the scans are performed using protocols designed to limit radiation exposure to as low as reasonably achievable to attain images of sufficient resolution adequate for diagnostic evaluation.
[2018-06-19 14:35] LABS: ALANINE AMINOTRANSFERASE 30 U/L (12-78); ALBUMIN 3.4 G/DL (3.4-5.0); ALBUMIN/GLOBULIN RATIO 0.7 (1.0-2.7); ALKALINE PHOSPHATASE 83 U/L (46-116); ASPARTATE AMINO TRANSFERASE 23 U/L (15-37); BILIRUBIN,TOTAL 0.4 MG/DL (0.2-1.0); CREATINE KINASE 81 U/L (26-308)
--- NOTE | 2018-06-19 14:36 | Emergency Room Report ---
History of Present Illness General Chief Complaint: Seizure Source: EMS Present Illness HPI Patient presents emergency department today with acute altered mental status. Patient apparently had a history of seizure. And patient had a seizure today. Patient stays at a senior living. Patient at baseline is nonverbal. Symptoms noted the severe. Patient is unable to provide any history. History is obtained from medical records.No other modifying factors. No other associated signs and symptoms. No other complaints were noted. Allergies: Coded Allergies: DIVALPROEX SODIUM (Verified Allergy, Unknown, 06/01/18) PENICILLINS (Unverified Allergy, Unknown, 06/01/18) Patient History Past Medical History: DM, HTN, CAD, CVA/TIA, dementia, seizures Past Surgical History: other - GJ tube Social History Narrative from senior living Reviewed Nursing Documentation: PMH: Agreed; PSxH: Agreed Nursing Documentation-PMH Hx Cardiac Problems: Yes Hx Hypertension: Yes Hx Diabetes: Yes Hx Cancer: No Hx Gastrointestinal Problems: Yes - duodenal fistula Hx Neurological Problems: Yes Hx Cerebrovascular Accident: Yes Hx Seizures: Yes Review of Systems All Other Systems: limited - For mental status Physical Exam Vital Signs Date Time Temp Pulse Resp B/P (MAP) Pulse Ox O2 Delivery O2 Flow Rate FiO2 06/19/18 13:37 98.2 113 16 107/69 96 98.2 Sp02 EP Interpretation: reviewed, normal General Appearance: mild distress, thin, Chronically Ill Head: atraumatic Eyes: bilateral eye normal inspection ENT: dry mucus membranes Neck: full range of motion, supple Respiratory: lungs clear, normal breath sounds Cardiovascular #1: regular rate, rhythm, no edema Gastrointestinal: non tender, soft Genitourinary: normal inspection Musculoskeletal: decreased range of motion - Lower extremity Neurologic: other - Unable to fully assess, poor mental status. Psychiatric: other - Unable to fully assess for mental status Skin: normal color, no rash Medical Decision Making Diagnostic Impression: Primary Impression: Seizure disorder Additional Impressions: Epileptic seizure, generalized Altered mental state ER Course Patient presents to the emergency department today with altered mental status. Differential considerations include acute CVA, acute infectious process, acute electrolyte abnormality, acute coronary syndrome, worsening dementia just to name a few.Given the severity of the patient's presentation I felt this is a highly complex patient. This patient required extensive workup. Patient's head CT was negative. Laboratory workup was negative. Patient remained confused and altered. Therefore felt the patient require admission. Case was discussed with Dr. Joyce and Dr. Sanchez. Patient will be admitted to telemetry for further treatment. Labs Test 06/19/18 13:42 06/19/18 13:45 Urine Color Yellow Urine Appearance Clear Urine pH 8 (4.5-8.0) Urine Specific [place] 1.015 (1.005-1.035) Urine Protein 2+ (NEGATIVE) Urine Glucose (UA) Negative (NEGATIVE) Urine Ketones Negative (NEGATIVE) Urine Blood 1+ (NEGATIVE) Urine Nitrite Negative (NEGATIVE) Urine Bilirubin Negative (NEGATIVE) Urine Urobilinogen 1 MG/DL (0.0-1.0) Urine Leukocyte Esterase 1+ (NEGATIVE) Urine RBC 5-10 /HPF (0 - 0) Urine WBC 2-4 /HPF (0 - 0) Urine Squamous Epithelial Cells Occasional /LPF Urine Bacteria Few /HPF (NONE) White Blood Count 11.3 K/UL (4.8-10.8) Red Blood Count 3.75 M/UL (4.70-6.10) Hemoglobin 11.2 G/DL (14.2-18.0) Hematocrit 33.6 % (42.0-52.0) Mean Corpuscular Volume 90 FL (80-99) Mean Corpuscular Hemoglobin 29.8 PG (27.0-31.0) Mean Corpuscular Hemoglobin Concent 33.3 G/DL (32.0-36.0) Red Cell Distribution Width 13.2 % (11.6-14.8) Platelet Count 384 K/UL (150-450) Mean Platelet Volume 7.0 FL (6.5-10.1) Neutrophils (%) (Auto) 82.4 % (45.0-75.0) Lymphocytes (%) (Auto) 10.4 % (20.0-45.0) Monocytes (%) (Auto) 6.7 % (1.0-10.0) Eosinophils (%) (Auto) 0.0 % (0.0-3.0) Basophils (%) (Auto) 0.5 % (0.0-2.0) Sodium Level 134 MMOL/L (136-145) Potassium Level 4.1 MMOL/L (3.5-5.1) Chloride Level 98 MMOL/L (98-107) Carbon Dioxide Level 25 MMOL/L (21-32) Anion Gap 11 mmol/L (5-15) Blood Urea Nitrogen 19 mg/dL (7-18) Creatinine 0.7 MG/DL (0.55-1.30) Estimat Glomerular Filtration Rate > 60 mL/min (>60) Glucose Level 177 MG/DL (74-106) Lactic Acid Level 1.70 mmol/L (0.4-2.0) Calcium Level 9.6 MG/DL (8.5-10.1) Total Bilirubin 0.4 MG/DL (0.2-1.0) Aspartate Amino Transf (AST/SGOT) 23 U/L (15-37) Alanine Aminotransferase (ALT/SGPT) 30 U/L (12-78) Alkaline Phosphatase 83 U/L (46-116) Total Creatine Kinase 81 U/L (26-308) Troponin I 0.009 ng/mL (0.000-0.056) Total Protein 8.4 G/DL (6.4-8.2) Albumin 3.4 G/DL (3.4-5.0) Globulin 5.0 g/dL Albumin/Globulin Ratio 0.7 (1.0-2.7) EKG Diagnostic Results Rate: normal Rhythm: NSR ST Segments: no acute changes Rhythm Strip Diag. Results EP Interpretation: yes Rate: 100 Rhythm: NSR, no PVC's, no ectopy Chest X-Ray Diagnostic Results Chest X-Ray Diagnostic Results : Chest X-Ray Ordered: Yes # of Views/Limited/Complete: 1 View Indication: Chest Pain EP Interpretation: Yes Interpretation: no consolidation, no effusion, no pneumothorax Impression: No acute disease Electronically Signed by: Electronically signed by Jose Christie MD CT/MRI/US Diagnostic Results CT/MRI/US Diagnostic Results : Imaging Test Ordered: CT head: Negative Last Vital Signs Date Time Temp Pulse Resp B/P (MAP) Pulse Ox O2 Delivery O2 Flow Rate FiO2 06/19/18 13:48 108 16 06/19/18 13:48 100.0 112/69 98 100.0 Status: unchanged Disposition: ADMITTED INPATIENT Condition: Serious Referrals: Dony Sanchez MD (PCP) Jose Christie MD Jun 19, 2018 14:36
[2018-06-19 15:22] VITALS: BP 110/68
[2018-06-19] MEDS ORDERED: ALBUTEROL0.63 MG/3 HHN (15:25)
[2018-06-19] MEDS ORDERED: PRO-AMATINE10 MG GT (15:25)
[2018-06-19 16:41] VITALS: BP 103/61
--- NOTE | 2018-06-19 17:17 | Diagnostic Imaging Report ---
Indication: Cough Technique: One view of the chest Comparison: 06/05/2018 Findings: Lungs and pleural spaces are clear. Heart size is normal . Previously demonstrated right-sided pleural effusion is no longer evident. Previously demonstrated PICC has been removed Impression: No acute process
[2018-06-19] MEDS ORDERED: Zolpidem 5mg tab ORAL PRN (18:30)
[2018-06-19] MEDS ORDERED: Morphine Sulfate 2mg/ml Inj IVP PRN (18:30)
[2018-06-19] MEDS ORDERED: Mylanta II UD 30ml ORAL PRN (18:30)
[2018-06-19] MEDS ORDERED: Miralax 17gm pkt ORAL PRN (18:30)
[2018-06-19] MEDS ORDERED: LORazepam Inj 2mg/ml 1ml IV PRN (18:30)
--- NOTE | 2018-06-19 19:38 | History & Physical ---
History and Physical History & Physicial Dictated for Int Med-Dr Joyce no. [id number]. Manjinder Marley MD Jun 19, 2018 19:38
[2018-06-19 20:00] VITALS: BP 118/69
[2018-06-19] MEDS: Heparin 5000 units/ml inj SUBQ SCH (20:54)
[2018-06-19] MEDS ORDERED: OLANZapine 10mg tab ORAL SCH (21:00)
[2018-06-19] MEDS ORDERED: levETIRAcetam 500mg/5ml Liquid NG SCH (21:00)
[2018-06-19] MEDS ORDERED: Midodrine 10mg tab ORAL SCH (22:00)
[2018-06-19] MEDS ORDERED: Acetaminophen 650mg/20.3ml GT PRN (23:30)
[2018-06-19] MEDS ORDERED: Zolpidem 5mg tab GT PRN (23:30)
[2018-06-19] MEDS ORDERED: Miralax 17gm pkt GT PRN (23:30)
[2018-06-20] VITALS: BP 112/79
[2018-06-20] MEDS ORDERED: Mylanta II UD 30ml GT PRN (00:30)
[2018-06-20 04:00] VITALS: BP 118/66
[2018-06-20] MEDS: Midodrine 10mg tab GT SCH ×3 (05:49→22:18)
[2018-06-20 07:00] LABS: BASOPHILS % (AUTO) 0.8 % (0.0-2.0); EOSINOPHILS % (AUTO) 1.2 % (0.0-3.0); HEMATOCRIT 33.2 % (42.0-52.0); HEMOGLOBIN 11.1 G/DL (14.2-18.0); LYMPHOCYTES % (AUTO) 32.5 % (20.0-45.0); MEAN CORPUSCULAR VOLUME 91 FL (80-99); MONOCYTES % (AUTO) 11.4 % (1.0-10.0); NEUTROPHILS % (AUTO) 54.2 % (45.0-75.0); PLATELET COUNT 361 K/UL (150-450); RED BLOOD COUNT 3.66 M/UL (4.70-6.10); RED CELL DISTRIBUTION WIDTH 13.4 % (11.6-14.8); WHITE BLOOD COUNT 6.1 K/UL (4.8-10.8)
[2018-06-20 07:29] LABS: ALANINE AMINOTRANSFERASE 29 U/L (12-78); ALBUMIN 3.4 G/DL (3.4-5.0); ALBUMIN/GLOBULIN RATIO 0.7 (1.0-2.7); ALKALINE PHOSPHATASE 87 U/L (46-116); ANION GAP 9 mmol/L (5-15); ASPARTATE AMINO TRANSFERASE 30 U/L (15-37); BILIRUBIN,TOTAL 0.7 MG/DL (0.2-1.0); BLOOD UREA NITROGEN 15 mg/dL (7-18); CARBON DIOXIDE 25 MMOL/L (21-32); CHLORIDE 101 MMOL/L (98-107); CREATININE 0.7 MG/DL (0.55-1.30); SODIUM 135 MMOL/L (136-145)
[2018-06-20 08:00] VITALS: BP 121/70
[2018-06-20] MEDS: Heparin 5000 units/ml inj SUBQ SCH ×2 (08:15→22:19)
[2018-06-20] MEDS ORDERED: levETIRAcetam 500mg/5ml Liquid GT SCH (09:00)
--- NOTE | 2018-06-20 11:44 | Consultation ---
History of Present Illness General Date patient seen: Jun 20, 2018 Chief Complaint: Seizure Present Illness HPI 58 year old male with hx of CVA, bed bound, DM, psychosis, bed bound, [facility] resident admitted with CC of witnessed seizures. Pt can't give any history and all information is obtained from the chart. Allergies: Coded Allergies: DIVALPROEX SODIUM (Verified Allergy, Unknown, 06/01/18) PENICILLINS (Unverified Allergy, Unknown, 06/01/18) Medication History Scheduled Albuterol Sulfate (Albuterol Sulfate), 0.63 MG HHN Q4HR, (Reported) Ceftriaxone Sodium (Ceftriaxone), 1 GM IV DAILY Escitalopram Oxalate* (Lexapro*), 10 MG ORAL DAILY, (Reported) Levetiracetam (Keppra), 500 MG NG Q12HR Midodrine (Midodrine HCl), 10 MG ORAL Q8HR Midodrine (Midodrine HCl), 10 MG GT THREE TIMES A DAY, (Reported) Olanzapine* (Zyprexa*), 10 MG ORAL DAILY, (Reported) Scheduled PRN Quetiapine Fumarate* (Seroquel*), 25 MG ORAL Q6H PRN Miscellaneous Medications Ferrous Fumarate (Ferrous Fumarate), 324 MG PO, (Reported) Insulin Aspart* (Novolog*), 0 SUBQ, (Reported) Patient History Healthcare decision maker N Resuscitation status Full Code Advanced Directive on File Past Medical/Surgical History Past Medical/Surgical History: (1) Feeding by G-tube (2) Diabetes (3) Hypoalbuminemia (4) Alzheimer's dementia (5) Epileptic seizure, generalized Review of Systems All Other Systems: negative except mentioned in HPI Physical Exam General Appearance: cachetic Lines, tubes and drains: peripheral HEENT: normocephalic, atraumatic Neck: non-tender, normal alignment Respiratory/Chest: chest wall non-tender, lungs clear Cardiovascular/Chest: normal peripheral pulses, normal rate Abdomen: normal bowel sounds, non tender Genitourinary/Rectal: normal genital exam, normal rectal exam Extremities: normal range of motion, non-tender Last 24 Hour Vital Signs Date Time Temp Pulse Resp B/P (MAP) Pulse Ox O2 Delivery O2 Flow Rate FiO2 06/20/18 09:00 Room Air 06/20/18 08:00 95 06/20/18 08:00 98.1 95 20 121/70 (87) 97 98.1 06/20/18 04:00 93 06/20/18 04:00 97.3 93 20 118/66 (83) 97 97.3 06/20/18 00:00 98.0 94 18 112/79 (90) 98 98.0 06/20/18 00:00 94 06/19/18 21:00 Room Air 06/19/18 20:00 97.0 95 19 118/69 (85) 97 97.0 06/19/18 20:00 97 06/19/18 17:50 Room Air 06/19/18 17:27 90 06/19/18 16:41 96.3 88 18 103/61 (75) 94 96.3 06/19/18 16:25 99.5 97 16 110/68 100 99.5 06/19/18 15:22 99.5 97 16 110/68 100 99.5 06/19/18 13:48 108 16 06/19/18 13:48 100.0 108 16 112/69 98 100.0 06/19/18 13:37 98.2 113 16 107/69 96 98.2 Intake and Output 06/19/18 06/20/18 19:00 07:00 Intake Total 600 ml Output Total 200 ml 1000 ml Balance -200 ml -400 ml Intake Tube Feeding 420 ml Other 180 ml Output Urine Total 200 ml 1000 ml # Bowel Movements 1 1 Laboratory Tests Test 06/19/18 13:42 06/19/18 13:45 06/20/18 05:25 Urine Color Yellow Urine Appearance Clear Urine pH 8 (4.5-8.0) Urine Specific [place] 1.015 (1.005-1.035) Urine Protein 2+ (NEGATIVE) H Urine Glucose (UA) Negative (NEGATIVE) Urine Ketones Negative (NEGATIVE) Urine Blood 1+ (NEGATIVE) H Urine Nitrite Negative (NEGATIVE) Urine Bilirubin Negative (NEGATIVE) Urine Urobilinogen 1 MG/DL (0.0-1.0) H Urine Leukocyte Esterase 1+ (NEGATIVE) H Urine RBC 5-10 /HPF (0 - 0) H Urine WBC 2-4 /HPF (0 - 0) Urine Squamous Epithelial Cells Occasional /LPF Urine Bacteria Few /HPF (NONE) White Blood Count 11.3 K/UL (4.8-10.8) H 6.1 K/UL (4.8-10.8) Red Blood Count 3.75 M/UL (4.70-6.10) L 3.66 M/UL (4.70-6.10) L Hemoglobin 11.2 G/DL (14.2-18.0) L 11.1 G/DL (14.2-18.0) L Hematocrit 33.6 % (42.0-52.0) L 33.2 % (42.0-52.0) L Mean Corpuscular Volume 90 FL (80-99) 91 FL (80-99) Mean Corpuscular Hemoglobin 29.8 PG (27.0-31.0) 30.5 PG (27.0-31.0) Mean Corpuscular Hemoglobin Concent 33.3 G/DL (32.0-36.0) 33.6 G/DL (32.0-36.0) Red Cell Distribution Width 13.2 % (11.6-14.8) 13.4 % (11.6-14.8) Platelet Count 384 K/UL (150-450) 361 K/UL (150-450) Mean Platelet Volume 7.0 FL (6.5-10.1) 7.2 FL (6.5-10.1) Neutrophils (%) (Auto) 82.4 % (45.0-75.0) H 54.2 % (45.0-75.0) Lymphocytes (%) (Auto) 10.4 % (20.0-45.0) L 32.5 % (20.0-45.0) Monocytes (%) (Auto) 6.7 % (1.0-10.0) 11.4 % (1.0-10.0) H Eosinophils (%) (Auto) 0.0 % (0.0-3.0) 1.2 % (0.0-3.0) Basophils (%) (Auto) 0.5 % (0.0-2.0) 0.8 % (0.0-2.0) Sodium Level 134 MMOL/L (136-145) L 135 MMOL/L (136-145) L Potassium Level 4.1 MMOL/L (3.5-5.1) 4.0 MMOL/L (3.5-5.1) Chloride Level 98 MMOL/L (98-107) 101 MMOL/L (98-107) Carbon Dioxide Level 25 MMOL/L (21-32) 25 MMOL/L (21-32) Anion Gap 11 mmol/L (5-15) 9 mmol/L (5-15) Blood Urea Nitrogen 19 mg/dL (7-18) H 15 mg/dL (7-18) Creatinine 0.7 MG/DL (0.55-1.30) 0.7 MG/DL (0.55-1.30) Estimat Glomerular Filtration Rate > 60 mL/min (>60) > 60 mL/min (>60) Glucose Level 177 MG/DL (74-106) H 127 MG/DL (74-106) H Lactic Acid Level 1.70 mmol/L (0.4-2.0) Calcium Level 9.6 MG/DL (8.5-10.1) 10.0 MG/DL (8.5-10.1) Total Bilirubin 0.4 MG/DL (0.2-1.0) 0.7 MG/DL (0.2-1.0) Aspartate Amino Transf (AST/SGOT) 23 U/L (15-37) 30 U/L (15-37) Alanine Aminotransferase (ALT/SGPT) 30 U/L (12-78) 29 U/L (12-78) Alkaline Phosphatase 83 U/L (46-116) 87 U/L (46-116) Total Creatine Kinase 81 U/L (26-308) Troponin I 0.009 ng/mL (0.000-0.056) Total Protein 8.4 G/DL (6.4-8.2) H 8.5 G/DL (6.4-8.2) H Albumin 3.4 G/DL (3.4-5.0) 3.4 G/DL (3.4-5.0) Globulin 5.0 g/dL 5.1 g/dL Albumin/Globulin Ratio 0.7 (1.0-2.7) L 0.7 (1.0-2.7) L Levetiracetam (Keppra) Level Pending Microbiology Date/Time Source Procedure Growth Status 06/19/18 13:42 Urine,Clean Catch Urine Culture - Preliminary NO GROWTH Resulted Height (Feet): 5 Height (Inches): 10.00 Weight (Pounds): 129 Medications Current Medications Medications (Trade) Dose Ordered Sig/Cristofer Route PRN Reason Start Time Stop Time Status Last Admin Dose Admin Acetaminophen (Tylenol) 650 mg Q4H PRN GT fever 06/19/18 23:30 07/19/18 23:29 Al Hydroxide/Mg Hydroxide (Mylanta II) 30 ml Q6H PRN GT dyspepsia 06/20/18 00:30 07/19/18 18:29 Dextrose (Dextrose 50%) 25 ml Q30M PRN IV Hypoglycemia 06/19/18 18:30 07/19/18 18:29 Dextrose (Dextrose 50%) 50 ml Q30M PRN IV Hypoglycemia 06/19/18 18:30 07/19/18 18:29 Escitalopram Oxalate (Lexapro) 10 mg DAILY GT 06/20/18 09:00 07/20/18 08:59 06/20/18 08:13 Heparin Sodium (Porcine) (Heparin 5000 units/ml) 5,000 units EVERY 12 HOURS SUBQ 06/19/18 21:00 07/19/18 20:59 06/20/18 08:15 Levetiracetam (Keppra) 500 mg Q12HR GT 06/20/18 09:00 07/19/18 20:59 06/20/18 08:13 Lorazepam (Ativan 2mg/ml 1ml) 2 mg Q1H PRN IV seizures 06/19/18 18:30 06/26/18 18:29 Midodrine (Pro-Amatine) 10 mg Q8HR GT 06/20/18 06:00 07/19/18 21:59 06/20/18 05:49 Morphine Sulfate (Morphine Sulfate) 1 mg Q4H PRN IVP For Pain 06/19/18 18:30 06/26/18 18:29 Olanzapine (ZyPREXA) 10 mg QHS GT 06/20/18 21:00 07/19/18 20:59 Ondansetron HCl (Zofran) 4 mg Q6H PRN IVP Nausea & Vomiting 06/19/18 18:30 07/19/18 18:29 Polyethylene Glycol (Miralax) 17 gm HSPRN PRN GT Constipation 06/19/18 23:30 07/19/18 18:29 Quetiapine Fumarate (SEROquel) 25 mg Q6H PRN GT agitation 06/20/18 00:30 07/19/18 18:29 06/20/18 08:14 Zolpidem Tartrate (Ambien) 5 mg HSPRN PRN GT Insomnia 06/19/18 23:30 06/26/18 18:29 Assessment/Plan Problem List: (1) Epileptic seizure, generalized ICD Codes: G40.309 - Generalized idiopathic epilepsy and epileptic syndromes, not intractable, without status epilepticus SNOMED: 70339655 (2) Diabetes ICD Codes: E11.9 - Type 2 diabetes mellitus without complications SNOMED: 44943337 (3) HTN (hypertension) ICD Codes: I10 - Essential (primary) hypertension SNOMED: 56579917 (4) Alzheimer's dementia ICD Codes: G30.9 - Alzheimer's disease, unspecified; F02.80 - Dementia in other diseases classified elsewhere without behavioral disturbance SNOMED: 19562900 (5) Feeding by G-tube ICD Codes: Z93.1 - Gastrostomy status SNOMED: 039802080, 996033915 (6) Hypoalbuminemia ICD Codes: E88.09 - Other disorders of plasma-protein metabolism, not elsewhere classified SNOMED: 800962372 Assessment/Plan increase [facility] social service consult monitor BP resume Gtube feeding Dony Sanchez MD Jun 20, 2018 11:44
[2018-06-20 12:00] VITALS: BP 101/79
--- NOTE | 2018-06-20 12:20 | Internal Med Progress Note ---
Subjective Date of Service: Jun 20, 2018 Physician Name Manjinder Marley Attending Physician Ean Joyce MD Current Medications Medications (Trade) Dose Ordered Sig/Cristofer Route PRN Reason Start Time Stop Time Status Last Admin Dose Admin Acetaminophen (Tylenol) 650 mg Q4H PRN GT fever 06/19/18 23:30 07/19/18 23:29 Al Hydroxide/Mg Hydroxide (Mylanta II) 30 ml Q6H PRN GT dyspepsia 06/20/18 00:30 07/19/18 18:29 Dextrose (Dextrose 50%) 25 ml Q30M PRN IV Hypoglycemia 06/20/18 12:15 07/20/18 12:14 Dextrose (Dextrose 50%) 50 ml Q30M PRN IV Hypoglycemia 06/20/18 12:15 07/20/18 12:14 Escitalopram Oxalate (Lexapro) 10 mg DAILY GT 06/20/18 09:00 07/20/18 08:59 06/20/18 08:13 Heparin Sodium (Porcine) (Heparin 5000 units/ml) 5,000 units EVERY 12 HOURS SUBQ 06/19/18 21:00 07/19/18 20:59 06/20/18 08:15 Insulin Aspart (NovoLOG) BEFORE MEALS AND HS SUBQ 06/20/18 16:30 07/20/18 16:29 Levetiracetam (Keppra) 1,000 mg Q12HR GT 06/20/18 21:00 07/19/18 20:59 Lorazepam (Ativan 2mg/ml 1ml) 2 mg Q1H PRN IV seizures 06/19/18 18:30 06/26/18 18:29 Midodrine (Pro-Amatine) 10 mg Q8HR GT 06/20/18 06:00 07/19/18 21:59 06/20/18 05:49 Morphine Sulfate (Morphine Sulfate) 1 mg Q4H PRN IVP For Pain 06/19/18 18:30 06/26/18 18:29 Olanzapine (ZyPREXA) 10 mg QHS GT 06/20/18 21:00 07/19/18 20:59 Ondansetron HCl (Zofran) 4 mg Q6H PRN IVP Nausea & Vomiting 06/19/18 18:30 07/19/18 18:29 Polyethylene Glycol (Miralax) 17 gm HSPRN PRN GT Constipation 06/19/18 23:30 07/19/18 18:29 Quetiapine Fumarate (SEROquel) 25 mg Q6H PRN GT agitation 06/20/18 00:30 07/19/18 18:29 06/20/18 08:14 Zolpidem Tartrate (Ambien) 5 mg HSPRN PRN GT Insomnia 06/19/18 23:30 06/26/18 18:29 Allergies: Coded Allergies: DIVALPROEX SODIUM (Verified Allergy, Unknown, 06/01/18) PENICILLINS (Unverified Allergy, Unknown, 06/01/18) ROS Limited/Unobtainable: Yes Subjective 58 YO M admitted with seizure. Cover for Int Med-Dr Joyce Objective Last Vital Signs Date Time Temp Pulse Resp B/P (MAP) Pulse Ox O2 Delivery O2 Flow Rate FiO2 06/20/18 12:00 98.2 107 20 101/79 (86) 98 98.2 06/20/18 09:00 Room Air General Appearance: alert, cachetic, thin EENT: PERRL/EOMI, normal ENT inspection Neck: non-tender, normal alignment, supple, normal inspection Cardiovascular: normal peripheral pulses, normal rate, regular rhythm, no gallop/murmur, no JVD Respiratory/Chest: chest wall non-tender, lungs clear, normal breath sounds, no respiratory distress, no accessory muscle use Abdomen: normal bowel sounds, non tender, soft, no organomegaly, no mass Extremities: normal range of motion Edema: trace edema Neurologic: hydrologic engineer II-XII grossly normal, no motor/sensory deficits Skin: normal pigmentation, warm/dry Laboratory Tests Test 06/19/18 13:42 06/19/18 13:45 06/20/18 05:25 Urine Color Yellow Urine Appearance Clear Urine pH 8 (4.5-8.0) Urine Specific [place] 1.015 (1.005-1.035) Urine Protein 2+ (NEGATIVE) H Urine Glucose (UA) Negative (NEGATIVE) Urine Ketones Negative (NEGATIVE) Urine Blood 1+ (NEGATIVE) H Urine Nitrite Negative (NEGATIVE) Urine Bilirubin Negative (NEGATIVE) Urine Urobilinogen 1 MG/DL (0.0-1.0) H Urine Leukocyte Esterase 1+ (NEGATIVE) H Urine RBC 5-10 /HPF (0 - 0) H Urine WBC 2-4 /HPF (0 - 0) Urine Squamous Epithelial Cells Occasional /LPF Urine Bacteria Few /HPF (NONE) White Blood Count 11.3 K/UL (4.8-10.8) H 6.1 K/UL (4.8-10.8) Red Blood Count 3.75 M/UL (4.70-6.10) L 3.66 M/UL (4.70-6.10) L Hemoglobin 11.2 G/DL (14.2-18.0) L 11.1 G/DL (14.2-18.0) L Hematocrit 33.6 % (42.0-52.0) L 33.2 % (42.0-52.0) L Mean Corpuscular Volume 90 FL (80-99) 91 FL (80-99) Mean Corpuscular Hemoglobin 29.8 PG (27.0-31.0) 30.5 PG (27.0-31.0) Mean Corpuscular Hemoglobin Concent 33.3 G/DL (32.0-36.0) 33.6 G/DL (32.0-36.0) Red Cell Distribution Width 13.2 % (11.6-14.8) 13.4 % (11.6-14.8) Platelet Count 384 K/UL (150-450) 361 K/UL (150-450) Mean Platelet Volume 7.0 FL (6.5-10.1) 7.2 FL (6.5-10.1) Neutrophils (%) (Auto) 82.4 % (45.0-75.0) H 54.2 % (45.0-75.0) Lymphocytes (%) (Auto) 10.4 % (20.0-45.0) L 32.5 % (20.0-45.0) Monocytes (%) (Auto) 6.7 % (1.0-10.0) 11.4 % (1.0-10.0) H Eosinophils (%) (Auto) 0.0 % (0.0-3.0) 1.2 % (0.0-3.0) Basophils (%) (Auto) 0.5 % (0.0-2.0) 0.8 % (0.0-2.0) Sodium Level 134 MMOL/L (136-145) L 135 MMOL/L (136-145) L Potassium Level 4.1 MMOL/L (3.5-5.1) 4.0 MMOL/L (3.5-5.1) Chloride Level 98 MMOL/L (98-107) 101 MMOL/L (98-107) Carbon Dioxide Level 25 MMOL/L (21-32) 25 MMOL/L (21-32) Anion Gap 11 mmol/L (5-15) 9 mmol/L (5-15) Blood Urea Nitrogen 19 mg/dL (7-18) H 15 mg/dL (7-18) Creatinine 0.7 MG/DL (0.55-1.30) 0.7 MG/DL (0.55-1.30) Estimat Glomerular Filtration Rate > 60 mL/min (>60) > 60 mL/min (>60) Glucose Level 177 MG/DL (74-106) H 127 MG/DL (74-106) H Lactic Acid Level 1.70 mmol/L (0.4-2.0) Calcium Level 9.6 MG/DL (8.5-10.1) 10.0 MG/DL (8.5-10.1) Total Bilirubin 0.4 MG/DL (0.2-1.0) 0.7 MG/DL (0.2-1.0) Aspartate Amino Transf (AST/SGOT) 23 U/L (15-37) 30 U/L (15-37) Alanine Aminotransferase (ALT/SGPT) 30 U/L (12-78) 29 U/L (12-78) Alkaline Phosphatase 83 U/L (46-116) 87 U/L (46-116) Total Creatine Kinase 81 U/L (26-308) Troponin I 0.009 ng/mL (0.000-0.056) Total Protein 8.4 G/DL (6.4-8.2) H 8.5 G/DL (6.4-8.2) H Albumin 3.4 G/DL (3.4-5.0) 3.4 G/DL (3.4-5.0) Globulin 5.0 g/dL 5.1 g/dL Albumin/Globulin Ratio 0.7 (1.0-2.7) L 0.7 (1.0-2.7) L Levetiracetam (Keppra) Level Pending Microbiology Date/Time Source Procedure Growth Status 06/19/18 13:42 Urine,Clean Catch Urine Culture - Preliminary NO GROWTH Resulted Intake and Output 06/19/18 06/20/18 19:00 07:00 Intake Total 600 ml Output Total 200 ml 1000 ml Balance -200 ml -400 ml Intake Tube Feeding 420 ml Other 180 ml Output Urine Total 200 ml 1000 ml # Bowel Movements 1 1 Assessment/Plan Problem List: (1) History of left above knee amputation (2) Dementia, multi-infarct (3) Cerebral vascular disease (4) Seizure disorder (5) Epileptic seizure, generalized Assessment & Plan: Breakthrough seizure. Continue Keppra (6) HTN (hypertension) (7) Diabetes Assessment & Plan: Continue novolog sliding scale Status: not improved Manjinder Marley MD Jun 20, 2018 12:20
--- NOTE | 2018-06-20 12:51 | Consultation ---
History of Present Illness General Chief Complaint: Seizure Present Illness HPI 58-year-old male with multiple medical problems as listed below, who was admitted to this medical center for AMS. the pt is weak and has waxing and waning of consciousness cognitive impairment Allergies: Coded Allergies: DIVALPROEX SODIUM (Verified Allergy, Unknown, 06/01/18) PENICILLINS (Unverified Allergy, Unknown, 06/01/18) Medication History Scheduled Albuterol Sulfate (Albuterol Sulfate), 0.63 MG HHN Q4HR, (Reported) Ceftriaxone Sodium (Ceftriaxone), 1 GM IV DAILY Escitalopram Oxalate* (Lexapro*), 10 MG ORAL DAILY, (Reported) Levetiracetam (Keppra), 500 MG NG Q12HR Midodrine (Midodrine HCl), 10 MG ORAL Q8HR Midodrine (Midodrine HCl), 10 MG GT THREE TIMES A DAY, (Reported) Olanzapine* (Zyprexa*), 10 MG ORAL DAILY, (Reported) Scheduled PRN Quetiapine Fumarate* (Seroquel*), 25 MG ORAL Q6H PRN Miscellaneous Medications Ferrous Fumarate (Ferrous Fumarate), 324 MG PO, (Reported) Insulin Aspart* (Novolog*), 0 SUBQ, (Reported) Patient History Limited by: medical condition History Provided By: Patient, Medical Record, PMD Healthcare decision maker N Resuscitation status Full Code Advanced Directive on File Past Medical/Surgical History Past Medical/Surgical History: (1) Septic shock (2) ATN (acute tubular necrosis) (3) feeding by Jt (4) Fever (5) Altered mental status (6) MDD (major depressive disorder), recurrent episode, moderate (7) Encephalopathy due to metabolic factor or toxin (8) Leukocytosis (9) Seroma after procedure (10) Epileptic seizure, generalized (11) Altered mental state (12) Diabetes (13) Hypoalbuminemia (14) Feeding by G-tube (15) Alzheimer's dementia (16) HTN (hypertension) (17) Dementia, multi-infarct (18) Seizure disorder (19) Cerebral vascular disease (20) History of left above knee amputation Review of Systems Psychiatric: Reports: prior hx, anxiety, depressed feelings, emotional problems Physical Exam General Appearance: no apparent distress, alert Neurologic: depressed affect Last 24 Hour Vital Signs Date Time Temp Pulse Resp B/P (MAP) Pulse Ox O2 Delivery O2 Flow Rate FiO2 06/20/18 12:00 98.2 107 20 101/79 (86) 98 98.2 06/20/18 09:00 Room Air 06/20/18 08:00 95 06/20/18 08:00 98.1 95 20 121/70 (87) 97 98.1 06/20/18 04:00 93 06/20/18 04:00 97.3 93 20 118/66 (83) 97 97.3 06/20/18 00:00 98.0 94 18 112/79 (90) 98 98.0 06/20/18 00:00 94 06/19/18 21:00 Room Air 06/19/18 20:00 97.0 95 19 118/69 (85) 97 97.0 06/19/18 20:00 97 06/19/18 17:50 Room Air 06/19/18 17:27 90 06/19/18 16:41 96.3 88 18 103/61 (75) 94 96.3 06/19/18 16:25 99.5 97 16 110/68 100 99.5 06/19/18 15:22 99.5 97 16 110/68 100 99.5 06/19/18 13:48 108 16 06/19/18 13:48 100.0 108 16 112/69 98 100.0 06/19/18 13:37 98.2 113 16 107/69 96 98.2 Intake and Output 06/19/18 06/20/18 19:00 07:00 Intake Total 600 ml Output Total 200 ml 1000 ml Balance -200 ml -400 ml Intake Tube Feeding 420 ml Other 180 ml Output Urine Total 200 ml 1000 ml # Bowel Movements 1 1 Laboratory Tests Test 06/19/18 13:42 06/19/18 13:45 06/20/18 05:25 Urine Color Yellow Urine Appearance Clear Urine pH 8 (4.5-8.0) Urine Specific [place] 1.015 (1.005-1.035) Urine Protein 2+ (NEGATIVE) H Urine Glucose (UA) Negative (NEGATIVE) Urine Ketones Negative (NEGATIVE) Urine Blood 1+ (NEGATIVE) H Urine Nitrite Negative (NEGATIVE) Urine Bilirubin Negative (NEGATIVE) Urine Urobilinogen 1 MG/DL (0.0-1.0) H Urine Leukocyte Esterase 1+ (NEGATIVE) H Urine RBC 5-10 /HPF (0 - 0) H Urine WBC 2-4 /HPF (0 - 0) Urine Squamous Epithelial Cells Occasional /LPF Urine Bacteria Few /HPF (NONE) White Blood Count 11.3 K/UL (4.8-10.8) H 6.1 K/UL (4.8-10.8) Red Blood Count 3.75 M/UL (4.70-6.10) L 3.66 M/UL (4.70-6.10) L Hemoglobin 11.2 G/DL (14.2-18.0) L 11.1 G/DL (14.2-18.0) L Hematocrit 33.6 % (42.0-52.0) L 33.2 % (42.0-52.0) L Mean Corpuscular Volume 90 FL (80-99) 91 FL (80-99) Mean Corpuscular Hemoglobin 29.8 PG (27.0-31.0) 30.5 PG (27.0-31.0) Mean Corpuscular Hemoglobin Concent 33.3 G/DL (32.0-36.0) 33.6 G/DL (32.0-36.0) Red Cell Distribution Width 13.2 % (11.6-14.8) 13.4 % (11.6-14.8) Platelet Count 384 K/UL (150-450) 361 K/UL (150-450) Mean Platelet Volume 7.0 FL (6.5-10.1) 7.2 FL (6.5-10.1) Neutrophils (%) (Auto) 82.4 % (45.0-75.0) H 54.2 % (45.0-75.0) Lymphocytes (%) (Auto) 10.4 % (20.0-45.0) L 32.5 % (20.0-45.0) Monocytes (%) (Auto) 6.7 % (1.0-10.0) 11.4 % (1.0-10.0) H Eosinophils (%) (Auto) 0.0 % (0.0-3.0) 1.2 % (0.0-3.0) Basophils (%) (Auto) 0.5 % (0.0-2.0) 0.8 % (0.0-2.0) Sodium Level 134 MMOL/L (136-145) L 135 MMOL/L (136-145) L Potassium Level 4.1 MMOL/L (3.5-5.1) 4.0 MMOL/L (3.5-5.1) Chloride Level 98 MMOL/L (98-107) 101 MMOL/L (98-107) Carbon Dioxide Level 25 MMOL/L (21-32) 25 MMOL/L (21-32) Anion Gap 11 mmol/L (5-15) 9 mmol/L (5-15) Blood Urea Nitrogen 19 mg/dL (7-18) H 15 mg/dL (7-18) Creatinine 0.7 MG/DL (0.55-1.30) 0.7 MG/DL (0.55-1.30) Estimat Glomerular Filtration Rate > 60 mL/min (>60) > 60 mL/min (>60) Glucose Level 177 MG/DL (74-106) H 127 MG/DL (74-106) H Lactic Acid Level 1.70 mmol/L (0.4-2.0) Calcium Level 9.6 MG/DL (8.5-10.1) 10.0 MG/DL (8.5-10.1) Total Bilirubin 0.4 MG/DL (0.2-1.0) 0.7 MG/DL (0.2-1.0) Aspartate Amino Transf (AST/SGOT) 23 U/L (15-37) 30 U/L (15-37) Alanine Aminotransferase (ALT/SGPT) 30 U/L (12-78) 29 U/L (12-78) Alkaline Phosphatase 83 U/L (46-116) 87 U/L (46-116) Total Creatine Kinase 81 U/L (26-308) Troponin I 0.009 ng/mL (0.000-0.056) Total Protein 8.4 G/DL (6.4-8.2) H 8.5 G/DL (6.4-8.2) H Albumin 3.4 G/DL (3.4-5.0) 3.4 G/DL (3.4-5.0) Globulin 5.0 g/dL 5.1 g/dL Albumin/Globulin Ratio 0.7 (1.0-2.7) L 0.7 (1.0-2.7) L Levetiracetam (Keppra) Level Pending Microbiology Date/Time Source Procedure Growth Status 06/19/18 13:42 Urine,Clean Catch Urine Culture - Preliminary NO GROWTH Resulted Height (Feet): 5 Height (Inches): 10.00 Weight (Pounds): 129 Medications Current Medications Medications (Trade) Dose Ordered Sig/Cristofer Route PRN Reason Start Time Stop Time Status Last Admin Dose Admin Acetaminophen (Tylenol) 650 mg Q4H PRN GT fever 06/19/18 23:30 07/19/18 23:29 Al Hydroxide/Mg Hydroxide (Mylanta II) 30 ml Q6H PRN GT dyspepsia 06/20/18 00:30 07/19/18 18:29 Dextrose (Dextrose 50%) 25 ml Q30M PRN IV Hypoglycemia 06/20/18 12:15 07/20/18 12:14 Dextrose (Dextrose 50%) 50 ml Q30M PRN IV Hypoglycemia 06/20/18 12:15 07/20/18 12:14 Escitalopram Oxalate (Lexapro) 10 mg DAILY GT 06/20/18 09:00 07/20/18 08:59 06/20/18 08:13 Heparin Sodium (Porcine) (Heparin 5000 units/ml) 5,000 units EVERY 12 HOURS SUBQ 06/19/18 21:00 07/19/18 20:59 06/20/18 08:15 Insulin Aspart (NovoLOG) BEFORE MEALS AND HS SUBQ 06/20/18 16:30 07/20/18 16:29 Levetiracetam (Keppra) 1,000 mg Q12HR GT 06/20/18 21:00 07/19/18 20:59 Lorazepam (Ativan 2mg/ml 1ml) 2 mg Q1H PRN IV seizures 06/19/18 18:30 10 18:29 Midodrine (Pro-Amatine) 10 mg Q8HR GT 06/20/18 06:00 07/19/18 21:59 06/20/18 05:49 Morphine Sulfate (Morphine Sulfate) 1 mg Q4H PRN IVP For Pain 06/19/18 18:30 06/26/18 18:29 Olanzapine (ZyPREXA) 10 mg QHS GT 06/20/18 21:00 07/19/18 20:59 Ondansetron HCl (Zofran) 4 mg Q6H PRN IVP Nausea & Vomiting 06/19/18 18:30 07/19/18 18:29 Polyethylene Glycol (Miralax) 17 gm HSPRN PRN GT Constipation 06/19/18 23:30 07/19/18 18:29 Quetiapine Fumarate (SEROquel) 25 mg Q6H PRN GT agitation 06/20/18 00:30 07/19/18 18:29 06/20/18 08:14 Zolpidem Tartrate (Ambien) 5 mg HSPRN PRN GT Insomnia 06/19/18 23:30 06/26/18 18:29 Assessment/Plan Status: stable Assessment/Plan Encephalopathy due to metabolic d/o MDD psychotic d/o seizure d/o -cont current meds -provided kurt/Katherine Dwo MD Jun 20, 2018 12:51
[2018-06-20 16:00] VITALS: BP 98/59
[2018-06-20] MEDS: NovoLOG Insulin Flexpen SUBQ SCH ×2 (16:32→21:00)
[2018-06-20 20:00] VITALS: BP 124/73
[2018-06-20] MEDS ORDERED: OLANZapine 10mg tab GT SCH (21:00)
[2018-06-20] MEDS: levETIRAcetam 500mg/5ml Liquid GT SCH (22:22)
[2018-06-21] VITALS (8 sets, daily range): BP systolic 100–125; BP diastolic 39–71
[2018-06-21] MEDS: Midodrine 10mg tab GT SCH ×2 (06:22→22:17)
[2018-06-21] MEDS: NovoLOG Insulin Flexpen SUBQ SCH ×4 (06:26→21:00)
[2018-06-21 07:27] LABS: BASOPHILS % (AUTO) 1.1 % (0.0-2.0); EOSINOPHILS % (AUTO) 3.1 % (0.0-3.0); HEMATOCRIT 33.5 % (42.0-52.0); HEMOGLOBIN 11.1 G/DL (14.2-18.0); LYMPHOCYTES % (AUTO) 29.1 % (20.0-45.0); MEAN CORPUSCULAR VOLUME 92 FL (80-99); MONOCYTES % (AUTO) 9.1 % (1.0-10.0); NEUTROPHILS % (AUTO) 57.6 % (45.0-75.0); PLATELET COUNT 319 K/UL (150-450); RED BLOOD COUNT 3.66 M/UL (4.70-6.10); RED CELL DISTRIBUTION WIDTH 13.9 % (11.6-14.8); WHITE BLOOD COUNT 5.8 K/UL (4.8-10.8)
[2018-06-21 07:46] LABS: ANION GAP 8 mmol/L (5-15); BLOOD UREA NITROGEN 22 mg/dL (7-18); CALCIUM 9.6 MG/DL (8.5-10.1); CARBON DIOXIDE 29 MMOL/L (21-32); CHLORIDE 103 MMOL/L (98-107); CREATININE 0.7 MG/DL (0.55-1.30); POTASSIUM 4.4 MMOL/L (3.5-5.1); SODIUM 140 MMOL/L (136-145)
[2018-06-21] MEDS: levETIRAcetam 500mg/5ml Liquid GT SCH ×2 (08:42→22:18)
[2018-06-21] MEDS: Heparin 5000 units/ml inj SUBQ SCH ×2 (08:47→22:20)
--- NOTE | 2018-06-21 12:15 | Pulmonology Progress Note ---
Assessment/Plan Problems: (1) Epileptic seizure, generalized (2) Diabetes (3) HTN (hypertension) (4) Alzheimer's dementia (5) Feeding by G-tube (6) Hypoalbuminemia Assessment/Plan no more seizures tolerating feeding sliding scale med/surg social service consult to find family member to discuss end of life care. Subjective ROS Limited/Unobtainable: No Constitutional: Reports: no symptoms HEENT: Repors: no symptoms Respiratory: Reports: no symptoms Cardiovascular: Reports: no symptoms Allergies: Coded Allergies: DIVALPROEX SODIUM (Verified Allergy, Unknown, 06/01/18) PENICILLINS (Unverified Allergy, Unknown, 06/01/18) Objective Last 24 Hour Vital Signs Date Time Temp Pulse Resp B/P (MAP) Pulse Ox O2 Delivery O2 Flow Rate FiO2 06/21/18 12:00 97.8 81 17 109/71 (84) 96 97.8 06/21/18 09:00 Room Air 06/21/18 08:00 97.7 81 17 103/42 (62) 96 97.7 06/21/18 08:00 75 06/21/18 04:00 60 06/21/18 04:00 97.4 107 23 103/39 (60) 98 97.4 06/21/18 00:00 62 06/21/18 00:00 97.5 96 19 100/45 (63) 98 97.5 06/20/18 21:00 Room Air 06/20/18 20:00 91 06/20/18 20:00 97.7 95 20 124/73 (90) 98 97.7 06/20/18 16:00 89 06/20/18 16:00 98.2 98 20 98/59 (72) 98 98.2 Intake and Output 06/20/18 06/21/18 19:00 07:00 Intake Total 700 ml Output Total 400 ml 100 ml Balance 300 ml -100 ml Intake Free Water 160 ml Tube Feeding 540 ml Output Urine Total 400 ml 100 ml General Appearance: WD/WN HEENT: normocephalic Respiratory/Chest: chest wall non-tender, lungs clear Cardiovascular: normal peripheral pulses, normal rate Abdomen: normal bowel sounds, soft, non tender Genitourinary: normal external genitalia Extremities: no cyanosis Skin: no rash Microbiology Date/Time Source Procedure Growth Status 06/19/18 13:45 Blood Blood Culture - Preliminary NO GROWTH AFTER 24 HOURS Resulted 06/19/18 13:35 Blood Blood Culture - Preliminary NO GROWTH AFTER 24 HOURS Resulted 06/19/18 13:42 Urine,Clean Catch Urine Culture - Preliminary NO GROWTH AFTER 24 HOURS Resulted 06/19/18 15:00 Rectum VRE Culture - Final Enterococcus Faecalis - Vre Complete Laboratory Tests 06/21/18 06:00: White Blood Count 5.8, Red Blood Count 3.66L, Hemoglobin 11.1L, Hematocrit 33.5L , Mean Corpuscular Volume 92, Mean Corpuscular Hemoglobin 30.2, Mean Corpuscular Hemoglobin Concent 33.0, Red Cell Distribution Width 13.9, Platelet Count 319, Mean Platelet Volume 7.2, Neutrophils (%) (Auto) 57.6, Lymphocytes (% ) (Auto) 29.1, Monocytes (%) (Auto) 9.1, Eosinophils (%) (Auto) 3.1H, Basophils (%) (Auto) 1.1, Sodium Level 140, Potassium Level 4.4, Chloride Level 103, Carbon Dioxide Level 29, Anion Gap 8, Blood Urea Nitrogen 22H, Creatinine 0.7, Estimat Glomerular Filtration Rate > 60, Glucose Level 132H, Calcium Level 9.6 Current Medications Medications (Trade) Dose Ordered Sig/Cristofer Route PRN Reason Start Time Stop Time Status Last Admin Dose Admin Acetaminophen (Tylenol) 650 mg Q4H PRN GT fever 06/19/18 23:30 07/19/18 23:29 Al Hydroxide/Mg Hydroxide (Mylanta II) 30 ml Q6H PRN GT dyspepsia 06/20/18 00:30 07/19/18 18:29 Dextrose (Dextrose 50%) 25 ml Q30M PRN IV Hypoglycemia 06/20/18 12:15 07/20/18 12:14 Dextrose (Dextrose 50%) 50 ml Q30M PRN IV Hypoglycemia 06/20/18 12:15 07/20/18 12:14 Escitalopram Oxalate (Lexapro) 10 mg DAILY GT 06/20/18 09:00 07/20/18 08:59 06/21/18 08:42 Heparin Sodium (Porcine) (Heparin 5000 units/ml) 5,000 units EVERY 12 HOURS SUBQ 06/19/18 21:00 07/19/18 20:59 06/21/18 08:47 Insulin Aspart (NovoLOG) BEFORE MEALS AND HS SUBQ 06/20/18 16:30 07/20/18 16:29 06/21/18 11:10 Levetiracetam (Keppra) 1,000 mg Q12HR GT 06/20/18 21:00 07/19/18 20:59 06/21/18 08:42 Lorazepam (Ativan 2mg/ml 1ml) 2 mg Q1H PRN IV seizures 06/19/18 18:30 06/26/18 18:29 Midodrine (Pro-Amatine) 10 mg Q8HR GT 06/20/18 06:00 07/19/18 21:59 06/21/18 06:22 Morphine Sulfate (Morphine Sulfate) 1 mg Q4H PRN IVP For Pain 06/19/18 18:30 06/26/18 18:29 Olanzapine (ZyPREXA) 10 mg QHS GT 06/20/18 21:00 07/19/18 20:59 06/20/18 22:18 Ondansetron HCl (Zofran) 4 mg Q6H PRN IVP Nausea & Vomiting 06/19/18 18:30 07/19/18 18:29 Polyethylene Glycol (Miralax) 17 gm HSPRN PRN GT Constipation 06/19/18 23:30 07/19/18 18:29 Quetiapine Fumarate (SEROquel) 25 mg Q6H PRN GT agitation 06/20/18 00:30 07/19/18 18:29 06/20/18 08:14 Zolpidem Tartrate (Ambien) 5 mg HSPRN PRN GT Insomnia 06/19/18 23:30 06/26/18 18:29 Dony Sanchez MD Jun 21, 2018 12:15
[2018-06-21] MEDS ORDERED: Midodrine 10mg tab GT SCH (14:00)
--- NOTE | 2018-06-21 19:40 | Internal Med Progress Note ---
Subjective Date of Service: Jun 21, 2018 Physician Name AyakaManjinder Attending Physician Ean Joyce MD Current Medications Medications (Trade) Dose Ordered Sig/Cristofer Route PRN Reason Start Time Stop Time Status Last Admin Dose Admin Acetaminophen (Tylenol) 650 mg Q4H PRN GT fever 06/19/18 23:30 07/19/18 23:29 Al Hydroxide/Mg Hydroxide (Mylanta II) 30 ml Q6H PRN GT dyspepsia 06/20/18 00:30 07/19/18 18:29 Dextrose (Dextrose 50%) 25 ml Q30M PRN IV Hypoglycemia 06/20/18 12:15 07/20/18 12:14 Dextrose (Dextrose 50%) 50 ml Q30M PRN IV Hypoglycemia 06/20/18 12:15 07/20/18 12:14 Escitalopram Oxalate (Lexapro) 10 mg DAILY GT 06/20/18 09:00 07/20/18 08:59 06/21/18 08:42 Heparin Sodium (Porcine) (Heparin 5000 units/ml) 5,000 units EVERY 12 HOURS SUBQ 06/19/18 21:00 07/19/18 20:59 06/21/18 08:47 Insulin Aspart (NovoLOG) BEFORE MEALS AND HS SUBQ 06/20/18 16:30 07/20/18 16:29 06/21/18 16:38 Levetiracetam (Keppra) 1,000 mg Q12HR GT 06/20/18 21:00 07/19/18 20:59 06/21/18 08:42 Lorazepam (Ativan 2mg/ml 1ml) 2 mg Q1H PRN IV seizures 06/19/18 18:30 06/26/18 18:29 Midodrine (Pro-Amatine) 15 mg Q8HR GT 06/21/18 14:00 07/19/18 21:59 06/21/18 13:45 Morphine Sulfate (Morphine Sulfate) 1 mg Q4H PRN IVP For Pain 06/19/18 18:30 06/26/18 18:29 Olanzapine (ZyPREXA) 10 mg QHS GT 06/20/18 21:00 07/19/18 20:59 06/20/18 22:18 Ondansetron HCl (Zofran) 4 mg Q6H PRN IVP Nausea & Vomiting 06/19/18 18:30 07/19/18 18:29 Polyethylene Glycol (Miralax) 17 gm HSPRN PRN GT Constipation 06/19/18 23:30 07/19/18 18:29 Quetiapine Fumarate (SEROquel) 25 mg Q6H PRN GT agitation 06/20/18 00:30 07/19/18 18:29 06/20/18 08:14 Zolpidem Tartrate (Ambien) 5 mg HSPRN PRN GT Insomnia 06/19/18 23:30 06/26/18 18:29 Allergies: Coded Allergies: DIVALPROEX SODIUM (Verified Allergy, Unknown, 06/01/18) PENICILLINS (Unverified Allergy, Unknown, 06/01/18) ROS Limited/Unobtainable: Yes Subjective 58 YO M admitted with seizure. Cover for Int Med-Dr Joyce. No new seizure overnight Objective Last Vital Signs Date Time Temp Pulse Resp B/P (MAP) Pulse Ox O2 Delivery O2 Flow Rate FiO2 06/21/18 16:00 63 06/21/18 16:00 97.6 20 120/70 (87) 98 97.6 06/21/18 09:00 Room Air Laboratory Tests Test 06/21/18 06:00 White Blood Count 5.8 K/UL (4.8-10.8) Red Blood Count 3.66 M/UL (4.70-6.10) L Hemoglobin 11.1 G/DL (14.2-18.0) L Hematocrit 33.5 % (42.0-52.0) L Mean Corpuscular Volume 92 FL (80-99) Mean Corpuscular Hemoglobin 30.2 PG (27.0-31.0) Mean Corpuscular Hemoglobin Concent 33.0 G/DL (32.0-36.0) Red Cell Distribution Width 13.9 % (11.6-14.8) Platelet Count 319 K/UL (150-450) Mean Platelet Volume 7.2 FL (6.5-10.1) Neutrophils (%) (Auto) 57.6 % (45.0-75.0) Lymphocytes (%) (Auto) 29.1 % (20.0-45.0) Monocytes (%) (Auto) 9.1 % (1.0-10.0) Eosinophils (%) (Auto) 3.1 % (0.0-3.0) H Basophils (%) (Auto) 1.1 % (0.0-2.0) Sodium Level 140 MMOL/L (136-145) Potassium Level 4.4 MMOL/L (3.5-5.1) Chloride Level 103 MMOL/L (98-107) Carbon Dioxide Level 29 MMOL/L (21-32) Anion Gap 8 mmol/L (5-15) Blood Urea Nitrogen 22 mg/dL (7-18) H Creatinine 0.7 MG/DL (0.55-1.30) Estimat Glomerular Filtration Rate > 60 mL/min (>60) Glucose Level 132 MG/DL (74-106) H Calcium Level 9.6 MG/DL (8.5-10.1) Microbiology Date/Time Source Procedure Growth Status 06/19/18 13:45 Blood Blood Culture - Preliminary NO GROWTH AFTER 24 HOURS Resulted 06/19/18 13:35 Blood Blood Culture - Preliminary NO GROWTH AFTER 24 HOURS Resulted 06/19/18 13:42 Urine,Clean Catch Urine Culture - Preliminary NO GROWTH AFTER 24 HOURS Resulted 06/19/18 15:00 Rectum VRE Culture - Final Enterococcus Faecalis - Vre Complete Intake and Output 06/20/18 06/21/18 19:00 07:00 Intake Total 700 ml Output Total 400 ml 100 ml Balance 300 ml -100 ml Intake Free Water 160 ml Tube Feeding 540 ml Output Urine Total 400 ml 100 ml Objective General Appearance: alert, cachetic, thin EENT: PERRL/EOMI, normal ENT inspection Neck: non-tender, normal alignment, supple, normal inspection Cardiovascular: normal peripheral pulses, normal rate, regular rhythm, no gallop/murmur, no JVD Respiratory/Chest: chest wall non-tender, lungs clear, normal breath sounds, no respiratory distress, no accessory muscle use Abdomen: normal bowel sounds, non tender, soft, no organomegaly, no mass Extremities: normal range of motion Edema: trace edema 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 Continue Keppra (6) HTN (hypertension) (7) Diabetes Assessment & Plan: Continue novolog sliding scale Status: progressing Assessment/Plan Discharge planning Manjinder Marley MD Jun 21, 2018 19:40
[2018-06-21] MEDS ORDERED: Miralax 17gm pkt GT PRN (21:00)
[2018-06-21] MEDS ORDERED: Zolpidem 5mg tab GT PRN (21:00)
[2018-06-21] MEDS ORDERED: Mylanta II UD 30ml GT PRN (21:30)
[2018-06-21] MEDS ORDERED: Acetaminophen 650mg/20.3ml GT PRN (21:30)
[2018-06-21] MEDS ORDERED: LORazepam Inj 2mg/ml 1ml IV PRN (21:30)
[2018-06-21] MEDS: OLANZapine 10mg tab GT SCH (22:18)
--- NOTE | 2018-06-21 22:34 | General Progress Note ---
Assessment/Plan Status: unchanged Assessment/Plan Encephalopathy due to metabolic d/o MDD psychotic d/o seizure d/o -cont current meds -provided ro/st Subjective Date patient seen: Jun 21, 2018 Neurologic/Psychiatric: Reports: anxiety, depressed, emotional problems Allergies: Coded Allergies: DIVALPROEX SODIUM (Verified Allergy, Unknown, 06/01/18) PENICILLINS (Unverified Allergy, Unknown, 06/01/18) Objective Last 24 Hour Vital Signs Date Time Temp Pulse Resp B/P (MAP) Pulse Ox O2 Delivery O2 Flow Rate FiO2 06/21/18 21:00 Room Air 06/21/18 21:00 97.4 64 19 109/65 (80) 97 97.4 06/21/18 20:00 97.2 77 19 122/62 (82) 96 97.2 06/21/18 16:00 63 06/21/18 16:00 97.6 65 20 120/70 (87) 98 97.6 06/21/18 14:00 97.6 63 20 125/71 (89) 98 97.6 06/21/18 12:00 78 06/21/18 12:00 97.8 81 17 109/71 (84) 96 97.8 06/21/18 09:00 Room Air 06/21/18 08:00 97.7 81 17 103/42 (62) 96 97.7 06/21/18 08:00 75 06/21/18 04:00 60 06/21/18 04:00 97.4 107 23 103/39 (60) 98 97.4 06/21/18 00:00 62 06/21/18 00:00 97.5 96 19 100/45 (63) 98 97.5 Intake and Output 06/20/18 06/21/18 19:00 07:00 Intake Total 700 ml Output Total 400 ml 100 ml Balance 300 ml -100 ml Intake Free Water 160 ml Tube Feeding 540 ml Output Urine Total 400 ml 100 ml Laboratory Tests 06/21/18 06:00: White Blood Count 5.8, Red Blood Count 3.66L, Hemoglobin 11.1L, Hematocrit 33.5L , Mean Corpuscular Volume 92, Mean Corpuscular Hemoglobin 30.2, Mean Corpuscular Hemoglobin Concent 33.0, Red Cell Distribution Width 13.9, Platelet Count 319, Mean Platelet Volume 7.2, Neutrophils (%) (Auto) 57.6, Lymphocytes (% ) (Auto) 29.1, Monocytes (%) (Auto) 9.1, Eosinophils (%) (Auto) 3.1H, Basophils (%) (Auto) 1.1, Sodium Level 140, Potassium Level 4.4, Chloride Level 103, Carbon Dioxide Level 29, Anion Gap 8, Blood Urea Nitrogen 22H, Creatinine 0.7, Estimat Glomerular Filtration Rate > 60, Glucose Level 132H, Calcium Level 9.6 Height (Feet): 5 Height (Inches): 10.00 Weight (Pounds): 128 General Appearance: no apparent distress, alert Katherine Orozco MD Jun 21, 2018 22:34
[2018-06-22] VITALS: BP 147/81
[2018-06-22 04:00] VITALS: BP 120/60
[2018-06-22] MEDS: Midodrine 10mg tab GT SCH ×3 (06:01→21:35)
[2018-06-22] MEDS: NovoLOG Insulin Flexpen SUBQ SCH ×4 (06:24→21:40)
[2018-06-22 08:00] VITALS: BP 134/60
[2018-06-22 08:23] LABS: BASOPHILS % (AUTO) 0.7 % (0.0-2.0); EOSINOPHILS % (AUTO) 4.2 % (0.0-3.0); HEMATOCRIT 34.1 % (42.0-52.0); HEMOGLOBIN 11.1 G/DL (14.2-18.0); MEAN CORPUSCULAR VOLUME 92 FL (80-99); MONOCYTES % (AUTO) 7.8 % (1.0-10.0); NEUTROPHILS % (AUTO) 59.3 % (45.0-75.0); PLATELET COUNT 327 K/UL (150-450); RED CELL DISTRIBUTION WIDTH 13.9 % (11.6-14.8); WHITE BLOOD COUNT 6.1 K/UL (4.8-10.8)
[2018-06-22 08:44] LABS: ALANINE AMINOTRANSFERASE 27 U/L (12-78); ALBUMIN 3.2 G/DL (3.4-5.0); ALBUMIN/GLOBULIN RATIO 0.7 (1.0-2.7); ALKALINE PHOSPHATASE 82 U/L (46-116); ANION GAP 8 mmol/L (5-15); ASPARTATE AMINO TRANSFERASE 22 U/L (15-37); BILIRUBIN,TOTAL 0.6 MG/DL (0.2-1.0); BLOOD UREA NITROGEN 20 mg/dL (7-18); CALCIUM 9.5 MG/DL (8.5-10.1); CARBON DIOXIDE 28 MMOL/L (21-32); CHLORIDE 103 MMOL/L (98-107); CREATININE 0.6 MG/DL (0.55-1.30); POTASSIUM 3.8 MMOL/L (3.5-5.1); SODIUM 139 MMOL/L (136-145)
[2018-06-22] MEDS: levETIRAcetam 500mg/5ml Liquid GT SCH ×2 (10:01→21:33)
[2018-06-22] MEDS: Heparin 5000 units/ml inj SUBQ SCH ×2 (10:03→21:39)
[2018-06-22 12:00] VITALS: BP 99/65
--- NOTE | 2018-06-22 12:51 | Pulmonology Progress Note ---
Assessment/Plan Problems: (1) Epileptic seizure, generalized (2) Diabetes (3) HTN (hypertension) (4) Alzheimer's dementia (5) Feeding by G-tube (6) Hypoalbuminemia Assessment/Plan no more seizures tolerating feeding sliding scale med/surg social service consult to find family member to discuss end of life care. Subjective ROS Limited/Unobtainable: No Allergies: Coded Allergies: DIVALPROEX SODIUM (Verified Allergy, Unknown, 06/01/18) PENICILLINS (Unverified Allergy, Unknown, 06/01/18) Objective Last 24 Hour Vital Signs Date Time Temp Pulse Resp B/P (MAP) Pulse Ox O2 Delivery O2 Flow Rate FiO2 06/22/18 12:00 97.3 76 22 99/65 (76) 97 97.3 06/22/18 09:00 Room Air 06/22/18 08:00 98.2 81 18 134/60 (84) 97 98.2 06/22/18 04:00 97.7 80 19 120/60 (80) 94 97.7 06/22/18 00:00 97.4 62 19 147/81 (103) 95 97.4 06/21/18 21:00 Room Air 06/21/18 21:00 97.4 64 19 109/65 (80) 97 97.4 06/21/18 20:00 97.2 77 19 122/62 (82) 96 97.2 06/21/18 16:00 63 06/21/18 16:00 97.6 65 20 120/70 (87) 98 97.6 06/21/18 14:00 97.6 63 20 125/71 (89) 98 97.6 Intake and Output 06/21/18 06/22/18 19:00 07:00 Intake Total 720 ml Output Total 500 ml 600 ml Balance -500 ml 120 ml Intake Free Water 120 ml Tube Feeding 600 ml Output Urine Total 500 ml 600 ml # Bowel Movements 1 HEENT: normocephalic, atraumatic Respiratory/Chest: chest wall non-tender, normal breath sounds Cardiovascular: normal peripheral pulses, normal rate Abdomen: soft, non tender Genitourinary: normal external genitalia Extremities: no clubbing Skin: no rash, no ulcers Microbiology Date/Time Source Procedure Growth Status 06/19/18 13:45 Blood Blood Culture - Preliminary NO GROWTH AFTER 48 HOURS Resulted 06/19/18 13:35 Blood Blood Culture - Preliminary NO GROWTH AFTER 48 HOURS Resulted 06/19/18 13:42 Urine,Clean Catch Urine Culture - Final NO GROWTH AFTER 48 HOURS Complete 06/19/18 15:00 Rectum VRE Culture - Final Enterococcus Faecalis - Vre Complete Laboratory Tests 06/22/18 06:15: White Blood Count 6.1, Red Blood Count 3.70L, Hemoglobin 11.1L, Hematocrit 34.1L , Mean Corpuscular Volume 92, Mean Corpuscular Hemoglobin 30.0, Mean Corpuscular Hemoglobin Concent 32.6, Red Cell Distribution Width 13.9, Platelet Count 327, Mean Platelet Volume 7.2, Neutrophils (%) (Auto) 59.3, Lymphocytes (% ) (Auto) 28.0, Monocytes (%) (Auto) 7.8, Eosinophils (%) (Auto) 4.2H, Basophils (%) (Auto) 0.7, Sodium Level 139, Potassium Level 3.8, Chloride Level 103, Carbon Dioxide Level 28, Anion Gap 8, Blood Urea Nitrogen 20H, Creatinine 0.6, Estimat Glomerular Filtration Rate > 60, Glucose Level 132H, Calcium Level 9.5, Phosphorus Level 4.0, Magnesium Level 1.8, Total Bilirubin 0.6, Aspartate Amino Transf (AST/SGOT) 22, Alanine Aminotransferase (ALT/SGPT) 27, Alkaline Phosphatase 82, Total Protein 7.9, Albumin 3.2L, Globulin 4.7, Albumin/Globulin Ratio 0.7L Current Medications Medications (Trade) Dose Ordered Sig/Cristofer Route PRN Reason Start Time Stop Time Status Last Admin Dose Admin Acetaminophen (Tylenol) 650 mg Q4H PRN GT fever 06/21/18 21:30 07/19/18 21:29 Al Hydroxide/Mg Hydroxide (Mylanta II) 30 ml Q6H PRN GT dyspepsia 06/21/18 21:30 07/21/18 21:29 Dextrose (Dextrose 50%) 25 ml Q30M PRN IV Hypoglycemia 06/21/18 21:15 07/20/18 12:14 Dextrose (Dextrose 50%) 50 ml Q30M PRN IV Hypoglycemia 06/21/18 21:15 07/20/18 12:14 Escitalopram Oxalate (Lexapro) 10 mg DAILY GT 06/22/18 09:00 11/2/18 08:59 06/22/18 10:01 Heparin Sodium (Porcine) (Heparin 5000 units/ml) 5,000 units EVERY 12 HOURS SUBQ 06/21/18 21:00 07/21/18 20:59 06/22/18 10:03 Insulin Aspart (NovoLOG) BEFORE MEALS AND HS SUBQ 06/21/18 21:00 07/21/18 20:59 06/22/18 11:33 Levetiracetam (Keppra) 1,000 mg Q12HR GT 06/21/18 21:00 07/21/18 20:59 06/22/18 10:01 Lorazepam (Ativan 2mg/ml 1ml) 2 mg Q1H PRN IV seizures 06/21/18 21:30 06/26/18 18:29 Midodrine (Pro-Amatine) 15 mg Q8HR GT 06/21/18 22:00 07/19/18 21:59 06/22/18 06:01 Morphine Sulfate (Morphine Sulfate) 1 mg Q4H PRN IVP For Pain 06/21/18 21:30 06/26/18 21:29 Olanzapine (ZyPREXA) 10 mg QHS GT 06/21/18 21:00 07/21/18 20:59 06/21/18 22:18 Ondansetron HCl (Zofran) 4 mg Q6H PRN IVP Nausea & Vomiting 06/21/18 21:30 07/21/18 21:29 Polyethylene Glycol (Miralax) 17 gm HSPRN PRN GT Constipation 06/21/18 21:00 07/19/18 20:59 Quetiapine Fumarate (SEROquel) 25 mg Q6H PRN GT agitation 06/21/18 21:30 07/21/18 21:29 Zolpidem Tartrate (Ambien) 5 mg HSPRN PRN GT Insomnia 06/21/18 21:00 06/26/18 20:59 Dony Sanchez MD Jun 22, 2018 12:51
[2018-06-22] MEDS ORDERED: KEPPRA LIQ100 MG/1 M GT (12:52)
--- NOTE | 2018-06-22 14:49 | Internal Med Progress Note ---
Subjective Physician Name Ean Joyce Attending Physician Ean Joyce MD Current Medications Medications (Trade) Dose Ordered Sig/Cristofer Route PRN Reason Start Time Stop Time Status Last Admin Dose Admin Acetaminophen (Tylenol) 650 mg Q4H PRN GT fever 06/21/18 21:30 07/19/18 21:29 Al Hydroxide/Mg Hydroxide (Mylanta II) 30 ml Q6H PRN GT dyspepsia 06/21/18 21:30 07/21/18 21:29 Dextrose (Dextrose 50%) 25 ml Q30M PRN IV Hypoglycemia 06/21/18 21:15 07/20/18 12:14 Dextrose (Dextrose 50%) 50 ml Q30M PRN IV Hypoglycemia 06/21/18 21:15 07/20/18 12:14 Escitalopram Oxalate (Lexapro) 10 mg DAILY GT 06/22/18 09:00 07/20/18 08:59 06/22/18 10:01 Heparin Sodium (Porcine) (Heparin 5000 units/ml) 5,000 units EVERY 12 HOURS SUBQ 06/21/18 21:00 07/21/18 20:59 06/22/18 10:03 Insulin Aspart (NovoLOG) BEFORE MEALS AND HS SUBQ 06/21/18 21:00 07/21/18 20:59 06/22/18 11:33 Levetiracetam (Keppra) 1,000 mg Q12HR GT 06/21/18 21:00 07/21/18 20:59 06/22/18 10:01 Lorazepam (Ativan 2mg/ml 1ml) 2 mg Q1H PRN IV seizures 06/21/18 21:30 06/26/18 18:29 Midodrine (Pro-Amatine) 15 mg Q8HR GT 06/21/18 22:00 07/19/18 21:59 06/22/18 13:55 Morphine Sulfate (Morphine Sulfate) 1 mg Q4H PRN IVP For Pain 06/21/18 21:30 06/26/18 21:29 Olanzapine (ZyPREXA) 10 mg QHS GT 06/21/18 21:00 07/21/18 20:59 06/21/18 22:18 Ondansetron HCl (Zofran) 4 mg Q6H PRN IVP Nausea & Vomiting 10/4/18 21:30 07/21/18 21:29 Polyethylene Glycol (Miralax) 17 gm HSPRN PRN GT Constipation 06/21/18 21:00 07/19/18 20:59 Quetiapine Fumarate (SEROquel) 25 mg Q6H PRN GT agitation 06/21/18 21:30 07/21/18 21:29 Zolpidem Tartrate (Ambien) 5 mg HSPRN PRN GT Insomnia 06/21/18 21:00 06/26/18 20:59 Allergies: Coded Allergies: DIVALPROEX SODIUM (Verified Allergy, Unknown, 06/01/18) PENICILLINS (Unverified Allergy, Unknown, 06/01/18) Subjective open eyes, Not verbal, awake, NAD Objective Last Vital Signs Date Time Temp Pulse Resp B/P (MAP) Pulse Ox O2 Delivery O2 Flow Rate FiO2 06/22/18 12:00 97.3 76 22 99/65 (76) 97 97.3 06/22/18 09:00 Room Air Laboratory Tests Test 06/22/18 06:15 White Blood Count 6.1 K/UL (4.8-10.8) Red Blood Count 3.70 M/UL (4.70-6.10) L Hemoglobin 11.1 G/DL (14.2-18.0) L Hematocrit 34.1 % (42.0-52.0) L Mean Corpuscular Volume 92 FL (80-99) Mean Corpuscular Hemoglobin 30.0 PG (27.0-31.0) Mean Corpuscular Hemoglobin Concent 32.6 G/DL (32.0-36.0) Red Cell Distribution Width 13.9 % (11.6-14.8) Platelet Count 327 K/UL (150-450) Mean Platelet Volume 7.2 FL (6.5-10.1) Neutrophils (%) (Auto) 59.3 % (45.0-75.0) Lymphocytes (%) (Auto) 28.0 % (20.0-45.0) Monocytes (%) (Auto) 7.8 % (1.0-10.0) Eosinophils (%) (Auto) 4.2 % (0.0-3.0) H Basophils (%) (Auto) 0.7 % (0.0-2.0) Sodium Level 139 MMOL/L (136-145) Potassium Level 3.8 MMOL/L (3.5-5.1) Chloride Level 103 MMOL/L (98-107) Carbon Dioxide Level 28 MMOL/L (21-32) Anion Gap 8 mmol/L (5-15) Blood Urea Nitrogen 20 mg/dL (7-18) H Creatinine 0.6 MG/DL (0.55-1.30) Estimat Glomerular Filtration Rate > 60 mL/min (>60) Glucose Level 132 MG/DL (74-106) H Calcium Level 9.5 MG/DL (8.5-10.1) Phosphorus Level 4.0 MG/DL (2.5-4.9) Magnesium Level 1.8 MG/DL (1.8-2.4) Total Bilirubin 0.6 MG/DL (0.2-1.0) Aspartate Amino Transf (AST/SGOT) 22 U/L (15-37) Alanine Aminotransferase (ALT/SGPT) 27 U/L (12-78) Alkaline Phosphatase 82 U/L (46-116) Total Protein 7.9 G/DL (6.4-8.2) Albumin 3.2 G/DL (3.4-5.0) L Globulin 4.7 g/dL Albumin/Globulin Ratio 0.7 (1.0-2.7) L Microbiology Date/Time Source Procedure Growth Status 06/19/18 15:00 Rectum VRE Culture - Final Enterococcus Faecalis - Vre Complete Intake and Output 06/21/18 06/22/18 19:00 07:00 Intake Total 720 ml Output Total 500 ml 600 ml Balance -500 ml 120 ml Intake Free Water 120 ml Tube Feeding 600 ml Output Urine Total 500 ml 600 ml # Bowel Movements 1 Objective General: No acute distress, awake and not verbal HEENT: NCAT, sclera anicteric, PERRL, EOMI. Neck: Supple, no significant jugular venous distention, Lungs: Fair inspiratory effort, decrease air on bases, clear to auscultation bilaterally, no Wheeze Heart: Regular rate and rhythm, normal S1/S2, no murmurs Abdomen: soft, nontender, nondistended. Normoactive bowel sound, + PEG. : Vargas cath Extremities: No Cyanosis , clubbing or edema, Left BKA, Muscle atrophy. Neuro: minimal movement Upper extremities. Assessment/Plan Assessment/Plan (1) History of left above knee amputation (2) Dementia, multi-infarct (3) Cerebral vascular disease (4) Seizure disorder (5) Epileptic seizure, generalized (6) HTN (hypertension) (7) Diabetes Assessment & Plan: monitor Labs and cultures DC Planning to SNF Ean Jain MD Jun 22, 2018 14:49
[2018-06-22 16:00] VITALS: BP 118/68
[2018-06-22 20:00] VITALS: BP 110/75
[2018-06-22] MEDS: OLANZapine 10mg tab GT SCH (21:33)
--- NOTE | 2018-06-22 23:48 | General Progress Note ---
Assessment/Plan Assessment/Plan Encephalopathy due to metabolic d/o MDD psychotic d/o seizure d/o -cont current meds -provided ro/st Subjective Neurologic/Psychiatric: Reports: anxiety, depressed Allergies: Coded Allergies: DIVALPROEX SODIUM (Verified Allergy, Unknown, 06/01/18) PENICILLINS (Unverified Allergy, Unknown, 06/01/18) Objective Last 24 Hour Vital Signs Date Time Temp Pulse Resp B/P (MAP) Pulse Ox O2 Delivery O2 Flow Rate FiO2 06/22/18 21:00 Room Air 06/22/18 20:00 97.5 79 20 110/75 (87) 97 97.5 06/22/18 16:00 98.6 68 20 118/68 (85) 98 98.6 06/22/18 12:00 97.3 76 22 99/65 (76) 97 97.3 06/22/18 09:00 Room Air 06/22/18 08:00 98.2 81 18 134/60 (84) 97 98.2 06/22/18 04:00 97.7 80 19 120/60 (80) 94 97.7 06/22/18 00:00 97.4 62 19 147/81 (103) 95 97.4 Intake and Output 06/21/18 06/22/18 19:00 07:00 Intake Total 720 ml Output Total 500 ml 600 ml Balance -500 ml 120 ml Intake Free Water 120 ml Tube Feeding 600 ml Output Urine Total 500 ml 600 ml # Bowel Movements 1 Laboratory Tests 06/22/18 06:15: White Blood Count 6.1, Red Blood Count 3.70L, Hemoglobin 11.1L, Hematocrit 34.1L , Mean Corpuscular Volume 92, Mean Corpuscular Hemoglobin 30.0, Mean Corpuscular Hemoglobin Concent 32.6, Red Cell Distribution Width 13.9, Platelet Count 327, Mean Platelet Volume 7.2, Neutrophils (%) (Auto) 59.3, Lymphocytes (% ) (Auto) 28.0, Monocytes (%) (Auto) 7.8, Eosinophils (%) (Auto) 4.2H, Basophils (%) (Auto) 0.7, Sodium Level 139, Potassium Level 3.8, Chloride Level 103, Carbon Dioxide Level 28, Anion Gap 8, Blood Urea Nitrogen 20H, Creatinine 0.6, Estimat Glomerular Filtration Rate > 60, Glucose Level 132H, Calcium Level 9.5, Phosphorus Level 4.0, Magnesium Level 1.8, Total Bilirubin 0.6, Aspartate Amino Transf (AST/SGOT) 22, Alanine Aminotransferase (ALT/SGPT) 27, Alkaline Phosphatase 82, Total Protein 7.9, Albumin 3.2L, Globulin 4.7, Albumin/Globulin Ratio 0.7L Height (Feet): 5 Height (Inches): 10.00 Weight (Pounds): 128 General Appearance: no apparent distress, alert Katherine Orozco MD Jun 22, 2018 23:48
[2018-06-23] VITALS: BP 109/69
[2018-06-23 04:00] VITALS: BP 105/66
[2018-06-23] MEDS: Midodrine 10mg tab GT SCH ×3 (07:03→22:32)
[2018-06-23] MEDS: NovoLOG Insulin Flexpen SUBQ SCH ×4 (07:05→20:42)
[2018-06-23 08:00] VITALS: BP 115/73
[2018-06-23] MEDS: levETIRAcetam 500mg/5ml Liquid GT SCH ×2 (08:53→20:34)
[2018-06-23] MEDS: Heparin 5000 units/ml inj SUBQ SCH ×2 (08:54→20:35)
[2018-06-23 11:42] VITALS: BP 102/62
--- NOTE | 2018-06-23 12:01 | Pulmonology Progress Note ---
Assessment/Plan Problems: (1) Epileptic seizure, generalized (2) Diabetes (3) HTN (hypertension) (4) Alzheimer's dementia (5) Feeding by G-tube (6) Hypoalbuminemia Assessment/Plan no more seizures tolerating feeding sliding scale med/surg pts brother will think about Hospice Subjective ROS Limited/Unobtainable: No Constitutional: Reports: no symptoms HEENT: Repors: no symptoms Respiratory: Reports: no symptoms Allergies: Coded Allergies: DIVALPROEX SODIUM (Verified Allergy, Unknown, 06/01/18) PENICILLINS (Unverified Allergy, Unknown, 06/01/18) Objective Last 24 Hour Vital Signs Date Time Temp Pulse Resp B/P (MAP) Pulse Ox O2 Delivery O2 Flow Rate FiO2 06/23/18 11:42 98.6 89 18 102/62 (75) 98 98.6 06/23/18 09:00 Room Air 06/23/18 08:00 98.3 78 18 115/73 (87) 97 98.3 06/23/18 04:00 97.4 87 19 105/66 (79) 96 97.4 06/23/18 00:00 97.9 82 19 109/69 (82) 96 97.9 06/22/18 21:00 Room Air 06/22/18 20:00 97.5 79 20 110/75 (87) 97 97.5 06/22/18 16:00 98.6 68 20 118/68 (85) 98 98.6 Intake and Output 06/22/18 06/23/18 19:00 07:00 Intake Total 90 ml Output Total 800 ml 400 ml Balance -800 ml -310 ml Intake Free Water 30 ml Tube Feeding 60 ml Output Urine Total 800 ml 400 ml General Appearance: cachetic HEENT: normocephalic, atraumatic Respiratory/Chest: chest wall non-tender, lungs clear Cardiovascular: normal peripheral pulses, regular rhythm Abdomen: normal bowel sounds, soft, non tender Extremities: no cyanosis Skin: no rash Current Medications Medications (Trade) Dose Ordered Sig/Cristofer Route PRN Reason Start Time Stop Time Status Last Admin Dose Admin Acetaminophen (Tylenol) 650 mg Q4H PRN GT fever 06/21/18 21:30 07/19/18 21:29 Al Hydroxide/Mg Hydroxide (Mylanta II) 30 ml Q6H PRN GT dyspepsia 06/21/18 21:30 07/21/18 21:29 Dextrose (Dextrose 50%) 25 ml Q30M PRN IV Hypoglycemia 06/21/18 21:15 07/20/18 12:14 Dextrose (Dextrose 50%) 50 ml Q30M PRN IV Hypoglycemia 06/21/18 21:15 07/20/18 12:14 Escitalopram Oxalate (Lexapro) 10 mg DAILY GT 06/22/18 09:00 07/20/18 08:59 06/23/18 08:53 Heparin Sodium (Porcine) (Heparin 5000 units/ml) 5,000 units EVERY 12 HOURS SUBQ 06/21/18 21:00 07/21/18 20:59 06/23/18 08:54 Insulin Aspart (NovoLOG) BEFORE MEALS AND HS SUBQ 06/21/18 21:00 07/21/18 20:59 06/23/18 07:05 Levetiracetam (Keppra) 1,000 mg Q12HR GT 06/21/18 21:00 07/21/18 20:59 06/23/18 08:53 Lorazepam (Ativan 2mg/ml 1ml) 2 mg Q1H PRN IV seizures 06/21/18 21:30 06/26/18 18:29 Midodrine (Pro-Amatine) 15 mg Q8HR GT 06/21/18 22:00 07/19/18 21:59 06/23/18 07:03 Morphine Sulfate (Morphine Sulfate) 1 mg Q4H PRN IVP For Pain 06/21/18 21:30 06/26/18 21:29 Olanzapine (ZyPREXA) 10 mg QHS GT 06/21/18 21:00 07/21/18 20:59 06/22/18 21:33 Ondansetron HCl (Zofran) 4 mg Q6H PRN IVP Nausea & Vomiting 06/21/18 21:30 07/21/18 21:29 Polyethylene Glycol (Miralax) 17 gm HSPRN PRN GT Constipation 06/21/18 21:00 07/19/18 20:59 Quetiapine Fumarate (SEROquel) 25 mg Q6H PRN GT agitation 06/21/18 21:30 07/21/18 21:29 Zolpidem Tartrate (Ambien) 5 mg HSPRN PRN GT Insomnia 06/21/18 21:00 06/26/18 20:59 Dony Sanchez MD Jun 23, 2018 12:01
[2018-06-23] MEDS ORDERED: Sterile Water For Irrig 2000ml IRRIG ONE (15:00)
[2018-06-23 16:07] VITALS: BP 119/73
--- NOTE | 2018-06-23 17:39 | Internal Med Progress Note ---
Subjective Date of Service: Jun 23, 2018 Physician Name AyakaManjinder Attending Physician Ean Joyce MD Current Medications Medications (Trade) Dose Ordered Sig/Cristofer Route PRN Reason Start Time Stop Time Status Last Admin Dose Admin Acetaminophen (Tylenol) 650 mg Q4H PRN GT fever 06/21/18 21:30 07/19/18 21:29 Al Hydroxide/Mg Hydroxide (Mylanta II) 30 ml Q6H PRN GT dyspepsia 06/21/18 21:30 07/21/18 21:29 Dextrose (Dextrose 50%) 25 ml Q30M PRN IV Hypoglycemia 06/21/18 21:15 07/20/18 12:14 Dextrose (Dextrose 50%) 50 ml Q30M PRN IV Hypoglycemia 06/21/18 21:15 07/20/18 12:14 Escitalopram Oxalate (Lexapro) 10 mg DAILY GT 06/22/18 09:00 07/20/18 08:59 06/23/18 08:53 Heparin Sodium (Porcine) (Heparin 5000 units/ml) 5,000 units EVERY 12 HOURS SUBQ 06/21/18 21:00 07/21/18 20:59 06/23/18 08:54 Insulin Aspart (NovoLOG) BEFORE MEALS AND HS SUBQ 06/21/18 21:00 07/21/18 20:59 06/23/18 16:59 Levetiracetam (Keppra) 1,000 mg Q12HR GT 06/21/18 21:00 07/21/18 20:59 06/23/18 08:53 Lorazepam (Ativan 2mg/ml 1ml) 2 mg Q1H PRN IV seizures 06/21/18 21:30 06/26/18 18:29 Midodrine (Pro-Amatine) 15 mg Q8HR GT 06/21/18 22:00 07/19/18 21:59 06/23/18 13:13 Morphine Sulfate (Morphine Sulfate) 1 mg Q4H PRN IVP For Pain 06/21/18 21:30 06/26/18 21:29 Olanzapine (ZyPREXA) 10 mg QHS GT 06/21/18 21:00 07/21/18 20:59 06/22/18 21:33 Ondansetron HCl (Zofran) 4 mg Q6H PRN IVP Nausea & Vomiting 06/21/18 21:30 07/21/18 21:29 Polyethylene Glycol (Miralax) 17 gm HSPRN PRN GT Constipation 06/21/18 21:00 07/19/18 20:59 Quetiapine Fumarate (SEROquel) 25 mg Q6H PRN GT agitation 06/21/18 21:30 07/21/18 21:29 Zolpidem Tartrate (Ambien) 5 mg HSPRN PRN GT Insomnia 06/21/18 21:00 06/26/18 20:59 Allergies: Coded Allergies: DIVALPROEX SODIUM (Verified Allergy, Unknown, 06/01/18) PENICILLINS (Unverified Allergy, Unknown, 06/01/18) ROS Limited/Unobtainable: No Constitutional: Reports: no symptoms HEENT: Reports: no symptoms Cardiovascular: Reports: no symptoms Respiratory: Reports: no symptoms Gastrointestinal/Abdominal: Reports: no symptoms Genitourinary: Reports: no symptoms Neurologic/Psychiatric: Reports: no symptoms Subjective 58 YO M admitted with seizure. Cover for [facility]-Dr Joyce. No new seizure overnight Objective Last Vital Signs Date Time Temp Pulse Resp B/P (MAP) Pulse Ox O2 Delivery O2 Flow Rate FiO2 06/23/18 16:07 98.1 82 18 119/73 (88) 98 98.1 06/23/18 09:00 Room Air Intake and Output 06/22/18 06/23/18 19:00 07:00 Intake Total 90 ml Output Total 800 ml 400 ml Balance -800 ml -310 ml Intake Free Water 30 ml Tube Feeding 60 ml Output Urine Total 800 ml 400 ml Objective General Appearance: alert, cachetic, thin EENT: PERRL/EOMI, normal ENT inspection Neck: non-tender, normal alignment, supple, normal inspection Cardiovascular: normal peripheral pulses, normal rate, regular rhythm, no gallop/murmur, no JVD Respiratory/Chest: chest wall non-tender, lungs clear, normal breath sounds, no respiratory distress, no accessory muscle use Abdomen: normal bowel sounds, non tender, soft, no organomegaly, no mass Extremities: normal range of motion Edema: trace edema 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 Continue Keppra (6) HTN (hypertension) (7) Diabetes Assessment & Plan: Continue novolog sliding scale Status: progressing Assessment/Plan Discharge planning Manjinder Marley MD Jun 23, 2018 17:39
[2018-06-23] MEDS: OLANZapine 10mg tab GT SCH (22:32)
--- NOTE | 2018-06-24 00:04 | General Progress Note ---
Assessment/Plan Assessment/Plan Encephalopathy due to metabolic d/o MDD psychotic d/o seizure d/o -cont current meds -provided ro/st Subjective Date patient seen: Jun 23, 2018 Neurologic/Psychiatric: Reports: depressed Allergies: Coded Allergies: DIVALPROEX SODIUM (Verified Allergy, Unknown, 06/01/18) PENICILLINS (Unverified Allergy, Unknown, 06/01/18) Objective Last 24 Hour Vital Signs Date Time Temp Pulse Resp B/P (MAP) Pulse Ox O2 Delivery O2 Flow Rate FiO2 06/23/18 21:08 Room Air 06/23/18 16:07 98.1 82 18 119/73 (88) 98 98.1 06/23/18 11:42 98.6 89 18 102/62 (75) 98 98.6 06/23/18 09:00 Room Air 06/23/18 08:00 98.3 78 18 115/73 (87) 97 98.3 06/23/18 04:00 97.4 87 19 105/66 (79) 96 97.4 Intake and Output 06/23/18 06/24/18 19:00 07:00 Intake Total 630 ml 300 ml Output Total 500 ml Balance 130 ml 300 ml Intake Free Water 60 ml 120 ml Tube Feeding 570 ml 180 ml Output Urine Total 500 ml Height (Feet): 5 Height (Inches): 10.00 Weight (Pounds): 128 General Appearance: no apparent distress, alert, cachetic Neurologic: depressed affect Katherine Orozco MD Jun 24, 2018 00:04
[2018-06-24 04:00] VITALS: BP 133/74
[2018-06-24] MEDS: Midodrine 10mg tab GT SCH ×3 (05:31→22:33)
[2018-06-24] MEDS: NovoLOG Insulin Flexpen SUBQ SCH ×4 (05:39→21:00)
[2018-06-24 07:28] LABS: EOSINOPHILS % (AUTO) 3.8 % (0.0-3.0); HEMATOCRIT 32.2 % (42.0-52.0); HEMOGLOBIN 10.9 G/DL (14.2-18.0); MEAN CORPUSCULAR VOLUME 92 FL (80-99); MONOCYTES % (AUTO) 10.8 % (1.0-10.0); NEUTROPHILS % (AUTO) 55.4 % (45.0-75.0); PLATELET COUNT 231 K/UL (150-450); RED BLOOD COUNT 3.51 M/UL (4.70-6.10); RED CELL DISTRIBUTION WIDTH 13.6 % (11.6-14.8); WHITE BLOOD COUNT 4.9 K/UL (4.8-10.8)
[2018-06-24 07:56] LABS: ANION GAP 7 mmol/L (5-15); BLOOD UREA NITROGEN 20 mg/dL (7-18); CALCIUM 9.4 MG/DL (8.5-10.1); CARBON DIOXIDE 28 MMOL/L (21-32); CHLORIDE 103 MMOL/L (98-107); CREATININE 0.5 MG/DL (0.55-1.30); POTASSIUM 4.3 MMOL/L (3.5-5.1); SODIUM 138 MMOL/L (136-145)
[2018-06-24 08:00] VITALS: BP 105/69
[2018-06-24] MEDS: levETIRAcetam 500mg/5ml Liquid GT SCH ×2 (09:53→21:47)
[2018-06-24] MEDS: Heparin 5000 units/ml inj SUBQ SCH ×2 (09:54→21:48)
[2018-06-24 12:00] VITALS: BP 105/66
[2018-06-24] MEDS: Morphine Sulfate 2mg/ml Inj IVP PRN (14:02)
--- NOTE | 2018-06-24 15:30 | Internal Med Progress Note ---
Subjective Date of Service: Jun 24, 2018 Physician Name AyakaManjinder Attending Physician Ean Joyce MD Current Medications Medications (Trade) Dose Ordered Sig/Cristofer Route PRN Reason Start Time Stop Time Status Last Admin Dose Admin Acetaminophen (Tylenol) 650 mg Q4H PRN GT fever 06/21/18 21:30 07/19/18 21:29 Al Hydroxide/Mg Hydroxide (Mylanta II) 30 ml Q6H PRN GT dyspepsia 06/21/18 21:30 07/21/18 21:29 Dextrose (Dextrose 50%) 25 ml Q30M PRN IV Hypoglycemia 06/21/18 21:15 07/20/18 12:14 Dextrose (Dextrose 50%) 50 ml Q30M PRN IV Hypoglycemia 06/21/18 21:15 07/20/18 12:14 Escitalopram Oxalate (Lexapro) 10 mg DAILY GT 06/22/18 09:00 07/20/18 08:59 06/24/18 09:53 Heparin Sodium (Porcine) (Heparin 5000 units/ml) 5,000 units EVERY 12 HOURS SUBQ 06/21/18 21:00 07/21/18 20:59 06/24/18 09:54 Insulin Aspart (NovoLOG) BEFORE MEALS AND HS SUBQ 06/21/18 21:00 07/21/18 20:59 06/24/18 12:13 Levetiracetam (Keppra) 1,000 mg Q12HR GT 06/21/18 21:00 07/21/18 20:59 06/24/18 09:53 Lorazepam (Ativan 2mg/ml 1ml) 2 mg Q1H PRN IV seizures 06/21/18 21:30 06/26/18 18:29 Midodrine (Pro-Amatine) 15 mg Q8HR GT 06/21/18 22:00 07/19/18 21:59 06/24/18 14:01 Morphine Sulfate (Morphine Sulfate) 1 mg Q4H PRN IVP For Pain 06/21/18 21:30 06/26/18 21:29 06/24/18 14:02 Olanzapine (ZyPREXA) 10 mg QHS GT 06/21/18 21:00 07/21/18 20:59 06/23/18 22:32 Ondansetron HCl (Zofran) 4 mg Q6H PRN IVP Nausea & Vomiting 06/21/18 21:30 07/21/18 21:29 Polyethylene Glycol (Miralax) 17 gm HSPRN PRN GT Constipation 06/21/18 21:00 07/19/18 20:59 Quetiapine Fumarate (SEROquel) 25 mg Q6H PRN GT agitation 06/21/18 21:30 07/21/18 21:29 Zolpidem Tartrate (Ambien) 5 mg HSPRN PRN GT Insomnia 06/21/18 21:00 06/26/18 20:59 Allergies: Coded Allergies: DIVALPROEX SODIUM (Verified Allergy, Unknown, 06/01/18) PENICILLINS (Unverified Allergy, Unknown, 06/01/18) ROS Limited/Unobtainable: No Constitutional: Reports: no symptoms HEENT: Reports: no symptoms Cardiovascular: Reports: no symptoms Respiratory: Reports: no symptoms Gastrointestinal/Abdominal: Reports: no symptoms Genitourinary: Reports: no symptoms Neurologic/Psychiatric: Reports: no symptoms Subjective 58 YO M admitted with seizure. Cover for [facility] Med-Dr Joyce. No new seizure overnight Objective Last Vital Signs Date Time Temp Pulse Resp B/P (MAP) Pulse Ox O2 Delivery O2 Flow Rate FiO2 06/24/18 14:32 97.9 06/24/18 12:00 88 18 105/66 (79) 96 06/24/18 09:00 Room Air Laboratory Tests Test 06/24/18 07:00 White Blood Count 4.9 K/UL (4.8-10.8) Red Blood Count 3.51 M/UL (4.70-6.10) L Hemoglobin 10.9 G/DL (14.2-18.0) L Hematocrit 32.2 % (42.0-52.0) L Mean Corpuscular Volume 92 FL (80-99) Mean Corpuscular Hemoglobin 31.1 PG (27.0-31.0) H Mean Corpuscular Hemoglobin Concent 33.9 G/DL (32.0-36.0) Red Cell Distribution Width 13.6 % (11.6-14.8) Platelet Count 231 K/UL (150-450) Mean Platelet Volume 7.7 FL (6.5-10.1) Neutrophils (%) (Auto) 55.4 % (45.0-75.0) Lymphocytes (%) (Auto) 29.0 % (20.0-45.0) Monocytes (%) (Auto) 10.8 % (1.0-10.0) H Eosinophils (%) (Auto) 3.8 % (0.0-3.0) H Basophils (%) (Auto) 1.0 % (0.0-2.0) Sodium Level 138 MMOL/L (136-145) Potassium Level 4.3 MMOL/L (3.5-5.1) Chloride Level 103 MMOL/L (98-107) Carbon Dioxide Level 28 MMOL/L (21-32) Anion Gap 7 mmol/L (5-15) Blood Urea Nitrogen 20 mg/dL (7-18) H Creatinine 0.5 MG/DL (0.55-1.30) L Estimat Glomerular Filtration Rate > 60 mL/min (>60) Glucose Level 141 MG/DL (74-106) H Calcium Level 9.4 MG/DL (8.5-10.1) Intake and Output 06/23/18 06/24/18 19:00 07:00 Intake Total 630 ml 780 ml Output Total 500 ml 300 ml Balance 130 ml 480 ml Intake Free Water 60 ml 180 ml Tube Feeding 570 ml 600 ml Output Urine Total 500 ml 300 ml Objective General Appearance: alert, cachetic, thin EENT: PERRL/EOMI, normal ENT inspection Neck: non-tender, normal alignment, supple, normal inspection Cardiovascular: normal peripheral pulses, normal rate, regular rhythm, no gallop/murmur, no JVD Respiratory/Chest: chest wall non-tender, lungs clear, normal breath sounds, no respiratory distress, no accessory muscle use Abdomen: normal bowel sounds, non tender, soft, no organomegaly, no mass Extremities: normal range of motion Edema: trace edema 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 Continue Keppra (6) HTN (hypertension) (7) Diabetes Assessment & Plan: Continue novolog sliding scale Status: progressing Assessment/Plan Discharge planning: Rehab on [place] refused patient-Discharge to another SNF when bed available Manjinder Marley MD Jun 24, 2018 15:30
[2018-06-24 16:00] VITALS: BP 98/67
[2018-06-24 16:33] LABS: BASOPHILS % (AUTO) 1.1 % (0.0-2.0); EOSINOPHILS % (AUTO) 2.8 % (0.0-3.0); HEMATOCRIT 34.1 % (42.0-52.0); HEMOGLOBIN 11.8 G/DL (14.2-18.0); LYMPHOCYTES % (AUTO) 24.7 % (20.0-45.0); MEAN CORPUSCULAR VOLUME 93 FL (80-99); MONOCYTES % (AUTO) 9.2 % (1.0-10.0); NEUTROPHILS % (AUTO) 62.2 % (45.0-75.0); PLATELET COUNT 280 K/UL (150-450); RED BLOOD COUNT 3.67 M/UL (4.70-6.10); RED CELL DISTRIBUTION WIDTH 13.6 % (11.6-14.8); WHITE BLOOD COUNT 7.8 K/UL (4.8-10.8)
[2018-06-24 20:00] VITALS: BP 105/66
[2018-06-24] MEDS: OLANZapine 10mg tab GT SCH (21:46)
[2018-06-25] VITALS: BP 101/69
[2018-06-25] MEDS: Morphine Sulfate 2mg/ml Inj IVP PRN (00:36)
[2018-06-25 04:00] VITALS: BP 102/67
[2018-06-25] MEDS: Midodrine 10mg tab GT SCH ×2 (05:45→13:26)
[2018-06-25] MEDS: NovoLOG Insulin Flexpen SUBQ SCH ×3 (05:47→16:30)
[2018-06-25 06:56] LABS: ANION GAP 8 mmol/L (5-15); BLOOD UREA NITROGEN 19 mg/dL (7-18); CALCIUM 9.5 MG/DL (8.5-10.1); CARBON DIOXIDE 28 MMOL/L (21-32); CHLORIDE 103 MMOL/L (98-107); CREATININE 0.6 MG/DL (0.55-1.30); POTASSIUM 4.1 MMOL/L (3.5-5.1); SODIUM 139 MMOL/L (136-145)
[2018-06-25 08:00] VITALS: BP 104/65
[2018-06-25] MEDS: levETIRAcetam 500mg/5ml Liquid GT SCH (08:35)
[2018-06-25] MEDS: Heparin 5000 units/ml inj SUBQ SCH (08:36)
[2018-06-25 12:00] VITALS: BP 116/69
--- NOTE | 2018-06-25 13:28 | Pulmonology Progress Note ---
Assessment/Plan Problems: (1) Epileptic seizure, generalized (2) Diabetes (3) HTN (hypertension) (4) Alzheimer's dementia (5) Feeding by G-tube (6) Hypoalbuminemia Assessment/Plan no more seizures tolerating feeding sliding scale med/surg pts brother will think about Hospice [place] will take the pt Subjective ROS Limited/Unobtainable: No Constitutional: Reports: no symptoms HEENT: Repors: no symptoms Respiratory: Reports: no symptoms Allergies: Coded Allergies: DIVALPROEX SODIUM (Verified Allergy, Unknown, 06/01/18) PENICILLINS (Unverified Allergy, Unknown, 06/01/18) Objective Last 24 Hour Vital Signs Date Time Temp Pulse Resp B/P (MAP) Pulse Ox O2 Delivery O2 Flow Rate FiO2 06/25/18 12:00 98.3 73 21 116/69 (85) 96 98.3 06/25/18 09:00 Room Air 06/25/18 08:00 97.3 69 19 104/65 (78) 96 97.3 06/25/18 04:00 97.5 70 18 102/67 (79) 99 97.5 06/25/18 01:06 98.3 06/25/18 00:36 98.3 06/25/18 00:00 98.3 75 20 101/69 (80) 97 98.3 06/24/18 21:08 Room Air 06/24/18 20:00 97.1 67 20 105/66 (79) 96 97.1 06/24/18 16:00 97.5 80 18 98/67 (77) 96 97.5 06/24/18 14:02 97.9 Intake and Output 06/24/18 06/25/18 19:00 07:00 Intake Total 690 ml 630 ml Balance 690 ml 630 ml Intake Free Water 90 ml 150 ml Tube Feeding 600 ml 480 ml General Appearance: cachetic HEENT: normocephalic Respiratory/Chest: chest wall non-tender, lungs clear Cardiovascular: normal peripheral pulses, normal rate Abdomen: normal bowel sounds, no mass Extremities: no cyanosis, no clubbing Laboratory Tests 06/24/18 16:10: White Blood Count 7.8#, Red Blood Count 3.67L, Hemoglobin 11.8L, Hematocrit 34.1L, Mean Corpuscular Volume 93, Mean Corpuscular Hemoglobin 32.2H, Mean Corpuscular Hemoglobin Concent 34.7, Red Cell Distribution Width 13.6, Platelet Count 280, Mean Platelet Volume 7.1, Neutrophils (%) (Auto) 62.2, Lymphocytes (% ) (Auto) 24.7, Monocytes (%) (Auto) 9.2, Eosinophils (%) (Auto) 2.8, Basophils ( %) (Auto) 1.1 06/25/18 06:10: Sodium Level 139, Potassium Level 4.1, Chloride Level 103, Carbon Dioxide Level 28, Anion Gap 8, Blood Urea Nitrogen 19H, Creatinine 0.6, Estimat Glomerular Filtration Rate > 60, Glucose Level 141H, Calcium Level 9.5 Current Medications Medications (Trade) Dose Ordered Sig/Cristofer Route PRN Reason Start Time Stop Time Status Last Admin Dose Admin Acetaminophen (Tylenol) 650 mg Q4H PRN GT fever 06/21/18 21:30 07/19/18 21:29 Al Hydroxide/Mg Hydroxide (Mylanta II) 30 ml Q6H PRN GT dyspepsia 06/21/18 21:30 07/21/18 21:29 Dextrose (Dextrose 50%) 25 ml Q30M PRN IV Hypoglycemia 06/21/18 21:15 07/20/18 12:14 Dextrose (Dextrose 50%) 50 ml Q30M PRN IV Hypoglycemia 06/21/18 21:15 07/20/18 12:14 Escitalopram Oxalate (Lexapro) 10 mg DAILY GT 06/22/18 09:00 07/20/18 08:59 06/25/18 08:35 Heparin Sodium (Porcine) (Heparin 5000 units/ml) 5,000 units EVERY 12 HOURS SUBQ 06/21/18 21:00 07/21/18 20:59 06/25/18 08:36 Insulin Aspart (NovoLOG) BEFORE MEALS AND HS SUBQ 06/21/18 21:00 07/21/18 20:59 06/25/18 12:04 Levetiracetam (Keppra) 1,000 mg Q12HR GT 06/21/18 21:00 07/21/18 20:59 06/25/18 08:35 Lorazepam (Ativan 2mg/ml 1ml) 2 mg Q1H PRN IV seizures 06/21/18 21:30 06/26/18 18:29 Midodrine (Pro-Amatine) 15 mg Q8HR GT 06/21/18 22:00 07/19/18 21:59 06/25/18 05:45 Morphine Sulfate (Morphine Sulfate) 1 mg Q4H PRN IVP For Pain 06/21/18 21:30 06/26/18 21:29 06/25/18 00:36 Olanzapine (ZyPREXA) 10 mg QHS GT 06/21/18 21:00 07/21/18 20:59 06/24/18 21:46 Ondansetron HCl (Zofran) 4 mg Q6H PRN IVP Nausea & Vomiting 06/21/18 21:30 07/21/18 21:29 Polyethylene Glycol (Miralax) 17 gm HSPRN PRN GT Constipation 06/21/18 21:00 07/19/18 20:59 06/25/18 08:35 Quetiapine Fumarate (SEROquel) 25 mg Q6H PRN GT agitation 06/21/18 21:30 07/21/18 21:29 Zolpidem Tartrate (Ambien) 5 mg HSPRN PRN GT Insomnia 06/21/18 21:00 06/26/18 20:59 Dony Sanchez MD Jun 25, 2018 13:28
[2018-06-25 16:00] VITALS: BP 111/69
--- NOTE | 2018-06-25 23:52 | General Progress Note ---
Assessment/Plan Assessment/Plan Encephalopathy due to metabolic d/o MDD psychotic d/o seizure d/o -cont current meds -provided ro/st Subjective Date patient seen: Jun 25, 2018 Neurologic/Psychiatric: Reports: anxiety, depressed, emotional problems Allergies: Coded Allergies: DIVALPROEX SODIUM (Verified Allergy, Unknown, 06/01/18) PENICILLINS (Unverified Allergy, Unknown, 06/01/18) Objective Last 24 Hour Vital Signs Date Time Temp Pulse Resp B/P (MAP) Pulse Ox O2 Delivery O2 Flow Rate FiO2 06/25/18 16:00 97.0 64 14 111/69 (83) 98 97.0 06/25/18 12:00 98.3 73 21 116/69 (85) 96 98.3 06/25/18 09:00 Room Air 06/25/18 08:00 97.3 69 19 104/65 (78) 96 97.3 06/25/18 04:00 97.5 70 18 102/67 (79) 99 97.5 06/25/18 01:06 98.3 06/25/18 00:36 98.3 06/25/18 00:00 98.3 75 20 101/69 (80) 97 98.3 Intake and Output 06/24/18 06/25/18 19:00 07:00 Intake Total 690 ml 630 ml Balance 690 ml 630 ml Intake Free Water 90 ml 150 ml Tube Feeding 600 ml 480 ml Laboratory Tests 06/25/18 06:10: Sodium Level 139, Potassium Level 4.1, Chloride Level 103, Carbon Dioxide Level 28, Anion Gap 8, Blood Urea Nitrogen 19H, Creatinine 0.6, Estimat Glomerular Filtration Rate > 60, Glucose Level 141H, Calcium Level 9.5 Height (Feet): 5 Height (Inches): 10.00 Weight (Pounds): 128 Katherine Orozco MD Jun 25, 2018 23:52
--- NOTE | 2018-06-28 12:40 | Discharge Summary ---
Discharge Summary Discharge Summary _ DATE OF ADMISSION: 06/19/2018 DATE OF DISCHARGE: 06/25/2018 REASON FOR ADMISSION: 58 years old male with past medical history of diabetes mellitus, hypertension, coronary artery disease, CVA , multiinfarct dementia, seizure disorder , dysphagia G-tube ,was sent for evaluation due to acute altered mental status. Patient apparently had a seizure prior to presentation to emergency department. Patient was non-verbal and was unable to provide any information. Vital signs revealed tachycardia and low blood pres.sure Laboratory workup revealed mild leukocytosis WBC 11.3. Hemoglobin 11.3, hematocrit 33.6. Essentially stable electrolytes and renal parameters. Troponin negative. Urinalysis revealed no evidence of UTI. CT of the head revealed no evidence of acute intracranial bleeding or mass effect. Noted right frontal and right cerebellar encephalomalacia, consistent with old infarcts. Chest x-ray revealed no acute cardiopulmonary pathology. Patient admitted with diagnoses of generalized epileptic seizure, altered mental status. CONSULTANTS: pulmonary Dr. Sanchez psychiatrist [facility]: Patient admitted. Seizure precautions were maintained. Keppra dose was increased. No further seizure activity. Blood pressure was supported with midodrine . All antihypertensive medications were on hold . Blood sugar was managed with sliding scale of insulin, remained stable. DVT prophylaxis provided. Strict aspiration precautions were maintained . G tube site care provided . Patient was able to tolerate tube feeding. Leukocytosis resolved, no fevers, no evidence of infection. Leukocytosis was likely reactive due to breakthrough seizure episode. Hemoglobin and hematocrit were closely monitored with goal to keep hemoglobin above 7, remained at baseline. Psychiatrist seen and evaluated patient, and diagnosed patient with metabolic encephalopathy, major depressive disorder and psychotic disorder. Reality orientation and supportive therapy provided. Psychiatric medication regimen optimized. Bowel regimen instituted. Supportive care provided. Per nnps , dietary recommendations via G tube, implemented in plan of care. Patient was transferred to intermediate facility for further management FINAL DIAGNOSES: Generalized epileptic seizure Seizure disorder Metabolic encephalopathy Cerebrovascular disease with history of CVA Diabetes mellitus History of hypertension with current hypotension Multi-infarct dementia Dysphagia, G-tube feeding Left above-knee amputation Major depressive disorder Psychotic disorder Malnutrition DISCHARGE MEDICATIONS: See Medication Reconciliation list. DISCHARGE INSTRUCTIONS: Patient was discharged to the intermediate facility. Follow up with medical doctor at the facility. I have been assigned to dictate discharge summary for this account. I was not involved in the patient's management. Claudia Keita NP Jun 28, 2018 12:40
== END 2018-06-25 17:15 | DRG 53 ==
LOC: EDBD 13:39 → EDBEDREQ 14:02 → EMR 14:15 → 2E 14:32 → EDBEDREQ 14:53 → 2E 17:59 → 4E 06-21 21:13
DX: G40.309 Generalized idiopathic epilepsy and epileptic syndromes, not intractable, without status epilepticus (principal); G93.41 Metabolic encephalopathy; E88.09 Other disorders of plasma-protein metabolism, not elsewhere classified; Z89.612 Acquired absence of left leg above knee; Z43.1 Encounter for attention to gastrostomy; G30.9 Alzheimer's disease, unspecified; R13.10 Dysphagia, unspecified; F02.80 Dementia in other diseases classified elsewhere, unspecified severity, without behavioral disturbance, psychotic disturbance, mood disturbance, and anxiety; E11.9 Type 2 diabetes mellitus without complications; Z86.73 Personal history of transient ischemic attack (TIA), and cerebral infarction without residual deficits; Z88.0 Allergy status to penicillin; Z88.8 Allergy status to other drugs, medicaments and biological substances; I10 Essential (primary) hypertension; F29 Unspecified psychosis not due to a substance or known physiological condition; F32.9 Major depressive disorder, single episode, unspecified; R09.02 Hypoxemia; D64.9 Anemia, unspecified
CPT/HCPCS: 36415; 70450; 71045; 80048; 80053; 80299; 81003; 82550; 82962; 83605; 83735; 84100; 84484; 85025; 87040; 87081; 87086; 93005; 96374; 99285; J1815

== ENCOUNTER 2018-07-24 10:45 | Inpatient (IN) | payer MEDICAID ==
[~2018-07-24] VITALS: Ht 165.1 cm; Wt 59.4 kg
[~2018-07-24 10:45] MED LIST changes: +ALBUTEROL0.63 MG/3 HHN; +KEPPRA LIQ100 MG/1 M GT; +LEXAPRO10 MG GT; -LEXAPRO10 MG ORAL; +PRO-AMATINE10 MG GT; +ZYPREXA10 MG GT; -ZYPREXA10 MG ORAL
[2018-07-24 11:00] VITALS: BP 94/75
[2018-07-24] MEDS ORDERED: LEVSIN-SL0.125 MG SL (11:24)
[2018-07-24] MEDS ORDERED: ZOFRAN ODT8 MG SL (11:24)
[2018-07-24] MEDS ORDERED: POLYETHYLENE GL17 GM GT (11:24)
[2018-07-24] MEDS ORDERED: MORPHINE S10 MG/5 ML ORAL (11:24)
[2018-07-24] MEDS ORDERED: ACETAMINOPHEN325 M1 GT (11:24)
[2018-07-24] MEDS ORDERED: HEPARIN SO5000 UNIT2 SUBQ (11:24)
[2018-07-24] MEDS ORDERED: BISACODYL10 M1 RC (11:24)
[2018-07-24] MEDS ORDERED: ZOFRAN4 M3 GT (11:24)
[2018-07-24] MEDS ORDERED: NORCO 5-325 TA1 EACH GT (11:24)
[2018-07-24] MEDS ORDERED: ALUM-MAG HYDRO360 ML GT (11:24)
[2018-07-24] MEDS ORDERED: SENNA8.6 M2 GT (11:24)
[2018-07-24 11:43] VITALS: BP 113/78
[2018-07-24 12:00] LABS: BASOPHILS % (AUTO) 0.6 % (0.0-2.0); EOSINOPHILS % (AUTO) 1.3 % (0.0-3.0); HEMATOCRIT 37.1 % (42.0-52.0); HEMOGLOBIN 12.7 G/DL (14.2-18.0); LYMPHOCYTES % (AUTO) 15.4 % (20.0-45.0); MEAN CORPUSCULAR VOLUME 89 FL (80-99); MONOCYTES % (AUTO) 7.8 % (1.0-10.0); PLATELET COUNT 363 K/UL (150-450); RED BLOOD COUNT 4.16 M/UL (4.70-6.10); RED CELL DISTRIBUTION WIDTH 13.6 % (11.6-14.8); WHITE BLOOD COUNT 9.2 K/UL (4.8-10.8)
[2018-07-24 12:33] LABS: ANION GAP 10 mmol/L (5-15); BLOOD UREA NITROGEN 18 mg/dL (7-18); CALCIUM 10.4 MG/DL (8.5-10.1); CARBON DIOXIDE 27 MMOL/L (21-32); CHLORIDE 99 MMOL/L (98-107); CREATININE 0.6 MG/DL (0.55-1.30); POTASSIUM 4.3 MMOL/L (3.5-5.1); SODIUM 136 MMOL/L (136-145)
[2018-07-24] MEDS ORDERED: LORazepam Inj 2mg/ml 1ml IV PRN ×2 (12:45→16:45)
[2018-07-24] MEDS ORDERED: Morphine Sulfate 2mg/ml Inj IVP PRN (12:45)
--- NOTE | 2018-07-24 12:51 | Emergency Room Report ---
History of Present Illness General Chief Complaint: Malfunctioning Gastric Tube Source: Medical Record, EMS Present Illness HPI This patient presents from a long term facility for concern of inability to use the J-tube. There are no other complaints. Allergies: Coded Allergies: DIVALPROEX SODIUM (Verified Allergy, Unknown, 06/01/18) PENICILLINS (Unverified Allergy, Unknown, 06/01/18) Patient History Past Medical History: see triage record, DM, CVA/TIA, dementia, seizures Social History: Denies: smoking, alcohol use, drug use Reviewed Nursing Documentation: PMH: Agreed; PSxH: Agreed Nursing Documentation-PMH Past Medical History: No History, Except For Hx Cardiac Problems: Yes - stroke Hx Hypertension: Yes Hx Diabetes: Yes Hx Cancer: No Hx Gastrointestinal Problems: Yes - duodenal fistula Hx Neurological Problems: Yes Hx Cerebrovascular Accident: Yes Hx Seizures: Yes Review of Systems All Other Systems: limited Physical Exam Vital Signs Date Time Temp Pulse Resp B/P (MAP) Pulse Ox O2 Delivery O2 Flow Rate FiO2 07/24/18 10:47 96.8 109 18 103/62 96 Room Air Sp02 EP Interpretation: reviewed, normal General Appearance: no apparent distress, alert, GCS 15, non-toxic Head: normocephalic, atraumatic Eyes: bilateral eye normal inspection, bilateral eye PERRL ENT: hearing grossly normal, normal pharynx, no angioedema Neck: full range of motion, supple/symm/no masses Respiratory: chest non-tender, lungs clear, normal breath sounds, no respiratory distress, no retraction, no accessory muscle use, speaking full sentences Cardiovascular #1: regular rate, rhythm, no edema Gastrointestinal: normal bowel sounds, non tender, soft, non-distended, no guarding, no rebound, other - J-tube in place Rectal: deferred Musculoskeletal: back normal, gait/station normal, normal range of motion, non- tender Neurologic: alert, oriented x3, responsive, motor strength/tone normal, sensory intact, speech normal Psychiatric: judgement/insight normal, memory normal, mood/affect normal, no suicidal/homicidal ideation Skin: no rash, warm/dry, well hydrated, other - See RN skin exam Medical Decision Making Diagnostic Impression: Primary Impression: Malfunction of jejunostomy tube ER Course This patient has malfunction of his J-tube. He is admitted for J-tube replacement. Laboratory Tests Test 07/24/18 11:45 White Blood Count 9.2 K/UL (4.8-10.8) Red Blood Count 4.16 M/UL (4.70-6.10) L Hemoglobin 12.7 G/DL (14.2-18.0) L Hematocrit 37.1 % (42.0-52.0) L Mean Corpuscular Volume 89 FL (80-99) Mean Corpuscular Hemoglobin 30.5 PG (27.0-31.0) Mean Corpuscular Hemoglobin Concent 34.2 G/DL (32.0-36.0) Red Cell Distribution Width 13.6 % (11.6-14.8) Platelet Count 363 K/UL (150-450) Mean Platelet Volume 7.5 FL (6.5-10.1) Neutrophils (%) (Auto) 75.0 % (45.0-75.0) Lymphocytes (%) (Auto) 15.4 % (20.0-45.0) L Monocytes (%) (Auto) 7.8 % (1.0-10.0) Eosinophils (%) (Auto) 1.3 % (0.0-3.0) Basophils (%) (Auto) 0.6 % (0.0-2.0) Prothrombin Time 11.0 SEC (9.30-11.50) Prothrombin Time INR 1.0 (0.9-1.1) PTT 27 SEC (23-33) Sodium Level 136 MMOL/L (136-145) Potassium Level 4.3 MMOL/L (3.5-5.1) Chloride Level 99 MMOL/L (98-107) Carbon Dioxide Level 27 MMOL/L (21-32) Anion Gap 10 mmol/L (5-15) Blood Urea Nitrogen 18 mg/dL (7-18) Creatinine 0.6 MG/DL (0.55-1.30) Estimate Glomerular Filtration Rate > 60 mL/min (>60) Glucose Level 149 MG/DL (74-106) H Calcium Level 10.4 MG/DL (8.5-10.1) H Last Vital Signs Date Time Temp Pulse Resp B/P (MAP) Pulse Ox O2 Delivery O2 Flow Rate FiO2 07/24/18 11:43 103 11 113/78 100 Room Air 07/24/18 11:00 95.1 Disposition: ADMITTED INPATIENT Condition: Stable Referrals: Dony Sanchez MD (PCP) Anne Carballo DO Jul 24, 2018 12:51
[2018-07-24] MEDS: D5 1/2NS 1,000 ML IV SCH (14:11)
[2018-07-24 14:12] VITALS: BP 124/74
--- NOTE | 2018-07-24 14:58 | Consultation ---
Sanya Dodson MD Jul 24, 2018 14:58
--- NOTE | 2018-07-24 15:08 | Consultation ---
History of Present Illness General Date patient seen: Jul 24, 2018 Chief Complaint: Malfunctioning Gastric Tube Present Illness HPI 58 yo male with hx of mmp, the pt is stable at baseline no behavioral issues. the pt has episodes of anxiety. meds were ordered. no si/hi Allergies: Coded Allergies: DIVALPROEX SODIUM (Verified Allergy, Unknown, 06/01/18) PENICILLINS (Unverified Allergy, Unknown, 06/01/18) Medication History Scheduled Albuterol Sulfate (Albuterol Sulfate), 0.63 MG HHN Q4HR, (Reported) Bisacodyl (Bisacodyl), 10 MG RC PRN, (Reported) Ceftriaxone Sodium (Ceftriaxone), 1 GM IV DAILY Escitalopram Oxalate* (Lexapro*), 10 MG GT DAILY, (Reported) Heparin Sod (Porcine) (Heparin Sodium*), 5,000 UNITS SUBQ EVERY 12 HOURS, ( Reported) Hyoscyamine Sulfate* (Levsin-Sl*), 0.125 MG SL EVERY 4 HOURS, (Reported) Levetiracetam (Keppra), 500 MG NG Q12HR Levetiracetam (Keppra), 1,000 MG GT Q12HR Mag Hydrox/Al Hydrox/Simeth (Alum-Mag Hydroxide-Simeth Liq), 30 ML GT EVERY 6 HOURS, (Reported) Midodrine (Midodrine HCl), 10 MG ORAL Q8HR Midodrine (Midodrine HCl), 15 MG GT THREE TIMES A DAY, (Reported) Olanzapine* (Zyprexa*), 10 MG GT DAILY, (Reported) Sennosides (Senna), 8.6 MG GT DAILY, (Reported) Scheduled PRN Acetaminophen* (Acetaminophen 325MG Tablet*), 650 MG GT Q4H PRN for Mild Pain/ Temp > 100.5, (Reported) Hydrocodone Bit/Acetaminophen 5-325* ([place] 5-325*), 1 TAB GT Q4H PRN for For Pain, (Reported) Morphine 10mg/5ml Oral Soln* (Morphine 10mg/5ml Oral Soln*), 10 MG ORAL EVERY 4 HOURS PRN for For Pain, (Reported) Ondansetron Odt* (Zofran Odt*), 4 MG SL Q4HR PRN for Nausea & Vomiting, ( Reported) Ondansetron* (Zofran*), 4 MG GT Q6H PRN for Nausea & Vomiting, (Reported) Polyethylene Glycol 3350* (Polyethylene Glycol 3350*), 17 GM GT BEDTIME PRN for Constipation, (Reported) Quetiapine Fumarate* (Seroquel*), 25 MG ORAL Q6H PRN Miscellaneous Medications Ferrous Fumarate (Ferrous Fumarate), 324 MG PO, (Reported) Insulin Aspart* (Novolog*), 0 SUBQ, (Reported) Patient History History Provided By: Patient, Medical Record, PMD Healthcare decision maker Resuscitation status Advanced Directive on File Past Medical/Surgical History Past Medical/Surgical History: (1) Diabetes (2) Hypoalbuminemia (3) Feeding by G-tube (4) Alzheimer's dementia (5) HTN (hypertension) (6) Dementia, multi-infarct (7) Cerebral vascular disease (8) History of left above knee amputation (9) Septic shock (10) Fever (11) ATN (acute tubular necrosis) (12) Altered mental status (13) MDD (major depressive disorder), recurrent episode, moderate (14) feeding by Jt (15) Leukocytosis (16) Encephalopathy due to metabolic factor or toxin (17) Seroma after procedure (18) Malfunction of jejunostomy tube (19) Cellulitis Review of Systems Psychiatric: Reports: prior hx, anxiety, depressed feelings, emotional problems Physical Exam General Appearance: alert Neurologic: oriented x 3, responsive, depressed affect Last 24 Hour Vital Signs Date Time Temp Pulse Resp B/P (MAP) Pulse Ox O2 Delivery O2 Flow Rate FiO2 07/24/18 14:28 98.6 105 20 124/74 96 Room Air 07/24/18 14:12 98.6 105 20 124/74 (91) 96 07/24/18 11:43 103 11 113/78 100 Room Air 07/24/18 11:00 95.1 103 11 94/75 100 Room Air 07/24/18 10:47 96.8 109 18 103/62 96 Room Air Laboratory Tests Test 07/24/18 11:45 White Blood Count 9.2 K/UL (4.8-10.8) Red Blood Count 4.16 M/UL (4.70-6.10) L Hemoglobin 12.7 G/DL (14.2-18.0) L Hematocrit 37.1 % (42.0-52.0) L Mean Corpuscular Volume 89 FL (80-99) Mean Corpuscular Hemoglobin 30.5 PG (27.0-31.0) Mean Corpuscular Hemoglobin Concent 34.2 G/DL (32.0-36.0) Red Cell Distribution Width 13.6 % (11.6-14.8) Platelet Count 363 K/UL (150-450) Mean Platelet Volume 7.5 FL (6.5-10.1) Neutrophils (%) (Auto) 75.0 % (45.0-75.0) Lymphocytes (%) (Auto) 15.4 % (20.0-45.0) L Monocytes (%) (Auto) 7.8 % (1.0-10.0) Eosinophils (%) (Auto) 1.3 % (0.0-3.0) Basophils (%) (Auto) 0.6 % (0.0-2.0) Prothrombin Time 11.0 SEC (9.30-11.50) Prothromb Time International Ratio 1.0 (0.9-1.1) Activated Partial Thromboplast Time 27 SEC (23-33) Sodium Level 136 MMOL/L (136-145) Potassium Level 4.3 MMOL/L (3.5-5.1) Chloride Level 99 MMOL/L (98-107) Carbon Dioxide Level 27 MMOL/L (21-32) Anion Gap 10 mmol/L (5-15) Blood Urea Nitrogen 18 mg/dL (7-18) Creatinine 0.6 MG/DL (0.55-1.30) Estimat Glomerular Filtration Rate > 60 mL/min (>60) Glucose Level 149 MG/DL (74-106) H Calcium Level 10.4 MG/DL (8.5-10.1) H Height (Feet): 5 Height (Inches): 9.00 Weight (Pounds): 160 Medications Current Medications Medications (Trade) Dose Ordered Sig/Cristofer Route PRN Reason Start Time Stop Time Status Last Admin Dose Admin Dextrose (Dextrose 50%) 25 ml Q30M PRN IV Hypoglycemia 07/24/18 12:45 08/23/18 12:44 Dextrose (Dextrose 50%) 50 ml Q30MIN PRN IV Hypoglycemia 07/24/18 12:45 08/23/18 12:44 Dextrose/Sodium Chloride 1,000 ml @ 50 mls/hr Q20H IV 07/24/18 12:44 08/23/18 12:43 07/24/18 14:11 Heparin Sodium (Porcine) (Heparin 5000 units/ml) 5,000 units EVERY 12 HOURS SUBQ 07/24/18 21:00 08/23/18 20:59 Levetiracetam (Keppra) 1,000 mg Q12HR GT 07/24/18 21:00 08/23/18 20:59 Lorazepam (Ativan 2mg/ml 1ml) 0.5 mg Q4H PRN IV For Anxiety 07/24/18 12:45 07/31/18 12:44 Morphine Sulfate (Morphine Sulfate) 1 mg Q4H PRN IVP For Pain 07/24/18 12:45 07/31/18 12:44 Olanzapine (ZyPREXA) 10 mg DAILY GT 07/25/18 09:00 08/24/18 08:59 Ondansetron HCl (Zofran) 4 mg Q6H PRN IVP Nausea & Vomiting 07/24/18 12:45 08/23/18 12:44 Quetiapine Fumarate (SEROquel) 25 mg Q6H PRN ORAL agitation 07/24/18 12:45 08/23/18 12:44 Assessment/Plan Problem List: (1) Alzheimer's dementia ICD Codes: G30.9 - Alzheimer's disease, unspecified; F02.80 - Dementia in other diseases classified elsewhere without behavioral disturbance SNOMED: 99294599 (2) MDD (major depressive disorder), recurrent episode, moderate ICD Codes: F33.1 - Major depressive disorder, recurrent, moderate SNOMED: 89414311, [id number] Assessment/Plan karen cervantes seroquel provided ro/st ativan prn Katherine Orozco MD Jul 24, 2018 15:08
--- NOTE | 2018-07-24 15:36 | Consultation ---
Consult Note Consult Note # [id number] Sanya Dodson MD Jul 24, 2018 15:36
[2018-07-24 16:13] VITALS: BP 99/65
[2018-07-24] MEDS: NovoLOG Insulin Flexpen SUBQ SCH ×2 (16:30→20:41)
--- NOTE | 2018-07-24 16:43 | GI Initial Consult Note ---
History of Present Illness General Date patient seen: Jul 24, 2018 Time patient seen: 16:36 Reason for Hospitalization: Malfunctioning Gastric Tube Referring physician: TERELL BOSWELL Reason for Consultation: J TUBE MALFUNCTION Present Illness HPI This patient presents from a half-way facility for concern of inability to use the J-tube. There are no other complaints. GI consulted for J-tube malfunction, unable to flush or use. ROS limited, patient with psychiatric history. Jtube site assessed, possible surgical tube placed. Presents today with mild anemia. Unable to obtain any records of exact date when and how J tube placed. Home Meds Active Scripts Levetiracetam (Keppra) 100 Mg/1 Ml Solution, 1000 MG GT Q12HR for 60 Days, #60 ML Prov:Dony Sanchez MD 06/22/18 Ceftriaxone Sodium (CEFTRIAXONE) 1 Gm Vial.port, 1 GM IV DAILY for 3 Days, VIAL Prov:Dony Sanchez MD 06/08/18 Levetiracetam (Keppra) 100 Mg/1 Ml Solution, 500 MG NG Q12HR for 30 Days, #30 ML Prov:Dony Sanchez MD 06/08/18 Midodrine (Midodrine HCl) 10 Mg Tablet, 10 MG ORAL Q8HR for 60 Days, TAB Prov:Dony Sanchez MD 06/08/18 Quetiapine Fumarate* (SEROQUEL*) 25 Mg Tablet, 25 MG ORAL Q6H PRN for 30 Days, TAB Prov:Dony Sanchez MD 06/08/18 Reported Medications Ondansetron* (ZOFRAN*) 4 Mg Tablet, 4 MG GT Q6H PRN for Nausea & Vomiting, TAB 07/24/18 Ondansetron Odt* (ZOFRAN ODT*) 8 Mg Tab.rapdis, 4 MG SL Q4HR PRN for Nausea & Vomiting, #30 TAB 07/24/18 Sennosides (SENNA) 8.6 Mg Tablet, 8.6 MG GT DAILY, TAB 07/24/18 Polyethylene Glycol 3350* (POLYETHYLENE GLYCOL 3350*) 17 Gm Powd.pack, 17 GM GT BEDTIME PRN for Constipation, PACKET 07/24/18 Hydrocodone Bit/Acetaminophen 5-325* ([place] 5-325*) 1 Each Tablet, 1 TAB GT Q4H PRN for For Pain, TAB 0 Refills 07/24/18 Mag Hydrox/Al Hydrox/Simeth (ALUM-MAG HYDROXIDE-SIMETH LIQ) 360 Ml Oral.susp, 30 ML GT EVERY 6 HOURS, ML 07/24/18 Morphine 10mg/5ml Oral Soln* (Morphine 10mg/5ml Oral Soln*) 10 Mg/5 Ml Solution , 10 MG ORAL EVERY 4 HOURS PRN for For Pain, ML 0 Refills 07/24/18 Hyoscyamine Sulfate* (LEVSIN-SL*) 0.125 Mg Tab.subl, 0.125 MG SL EVERY 4 HOURS, #20 TAB 0 Refills 07/24/18 Heparin Sod (Porcine) (HEPARIN SODIUM*) 5 000/1 Ml Vial, 5000 UNITS SUBQ EVERY 12 HOURS, VIAL 07/24/18 Bisacodyl (BISACODYL) 10 Mg Supp.rect, 10 MG RC PRN, SUPP 07/24/18 Acetaminophen* (ACETAMINOPHEN 325MG TABLET*) 325 Mg Tablet, 650 MG GT Q4H PRN for Mild Pain/Temp > 100.5, TAB 07/24/18 Albuterol Sulfate (ALBUTEROL SULFATE) 0.63 Mg/3 Ml Vial.neb, 0.63 MG HHN Q4HR, VIAL 06/19/18 Midodrine (Midodrine HCl) 10 Mg Tablet, 15 MG GT THREE TIMES A DAY, TAB 06/19/18 Olanzapine* (ZYPREXA*) 10 Mg Tablet, 10 MG GT DAILY, #30 TAB 0 Refills 06/01/18 Insulin Aspart* (NOVOLOG*) 100 Unit/1 Ml Insuln.pen, 0 SUBQ, #1 EA 0 Refills 06/01/18 Ferrous Fumarate (FERROUS FUMARATE) 324 Mg Tablet, 324 MG PO, TAB 06/01/18 Escitalopram Oxalate* (LEXAPRO*) 10 Mg Tablet, 10 MG GT DAILY, TAB 06/01/18 Med list reviewed/reconciled: Yes Allergies: Coded Allergies: DIVALPROEX SODIUM (Verified Allergy, Unknown, 06/01/18) PENICILLINS (Unverified Allergy, Unknown, 06/01/18) Patient History Limited by: medical condition History Provided By: Medical Record [facility] Narrative Past Medical History: see triage record, DM, CVA/TIA, dementia, seizures Social History: Denies: smoking, alcohol use, drug use Reviewed Nursing Documentation: PMH: Agreed; PSxH: Agreed Nursing Documentation-PMH Past Medical History: No History, Except For Hx Cardiac Problems: Yes - stroke Hx Hypertension: Yes Hx Diabetes: Yes Hx Cancer: No Hx Gastrointestinal Problems: Yes - duodenal fistula Hx Neurological Problems: Yes Hx Cerebrovascular Accident: Yes Hx Seizures: Yes Review of Systems All Other Systems: negative except mentioned in HPI Physical Exam Vital Signs Date Time Temp Pulse Resp B/P (MAP) Pulse Ox O2 Delivery O2 Flow Rate FiO2 07/24/18 10:47 96.8 109 18 103/62 96 Room Air Sp02 EP Interpretation: reviewed, normal Labs Laboratory Tests Test 07/24/18 11:45 White Blood Count 9.2 K/UL (4.8-10.8) Red Blood Count 4.16 M/UL (4.70-6.10) L Hemoglobin 12.7 G/DL (14.2-18.0) L Hematocrit 37.1 % (42.0-52.0) L Mean Corpuscular Volume 89 FL (80-99) Mean Corpuscular Hemoglobin 30.5 PG (27.0-31.0) Mean Corpuscular Hemoglobin Concent 34.2 G/DL (32.0-36.0) Red Cell Distribution Width 13.6 % (11.6-14.8) Platelet Count 363 K/UL (150-450) Mean Platelet Volume 7.5 FL (6.5-10.1) Neutrophils (%) (Auto) 75.0 % (45.0-75.0) Lymphocytes (%) (Auto) 15.4 % (20.0-45.0) L Monocytes (%) (Auto) 7.8 % (1.0-10.0) Eosinophils (%) (Auto) 1.3 % (0.0-3.0) Basophils (%) (Auto) 0.6 % (0.0-2.0) Prothrombin Time 11.0 SEC (9.30-11.50) Prothromb Time International Ratio 1.0 (0.9-1.1) Activated Partial Thromboplast Time 27 SEC (23-33) Sodium Level 136 MMOL/L (136-145) Potassium Level 4.3 MMOL/L (3.5-5.1) Chloride Level 99 MMOL/L (98-107) Carbon Dioxide Level 27 MMOL/L (21-32) Anion Gap 10 mmol/L (5-15) Blood Urea Nitrogen 18 mg/dL (7-18) Creatinine 0.6 MG/DL (0.55-1.30) Estimat Glomerular Filtration Rate > 60 mL/min (>60) Glucose Level 149 MG/DL (74-106) H Calcium Level 10.4 MG/DL (8.5-10.1) H General Appearance: well appearing, no apparent distress, alert, thin Head: normocephalic EENT: PERRL/EOMI, normal ENT inspection Neck: supple Respiratory: normal breath sounds, no respiratory distress Cardiovascular: normal rate Gastrointestinal: normal inspection, non tender, soft, normal bowel sounds, non -distended Rectal: deferred Genitourinary: deferred Musculoskeletal: normal inspection, back normal Neurologic: alert, responsive Skin: normal inspection, normal color, no rash, warm/dry, palpation normal, well hydrated Lymphatic: normal inspection, no adenopathy Current Medications Current Medications Medications (Trade) Dose Ordered Sig/Cristofer Route PRN Reason Start Time Stop Time Status Last Admin Dose Admin Dextrose (Dextrose 50%) 25 ml Q30M PRN IV Hypoglycemia 07/24/18 16:00 08/23/18 15:59 Dextrose (Dextrose 50%) 50 ml Q30M PRN IV Hypoglycemia 07/24/18 16:00 08/23/18 15:59 Dextrose/Sodium Chloride 1,000 ml @ 50 mls/hr Q20H IV 07/24/18 12:44 08/23/18 12:43 07/24/18 14:11 Heparin Sodium (Porcine) (Heparin 5000 units/ml) 5,000 units EVERY 12 HOURS SUBQ 07/24/18 21:00 08/23/18 20:59 Insulin Aspart (NovoLOG) BEFORE MEALS AND HS SUBQ 07/24/18 16:30 08/23/18 16:29 Levetiracetam (Keppra) 1,000 mg Q12HR GT 07/24/18 21:00 08/23/18 20:59 Lorazepam (Ativan 2mg/ml 1ml) 1 mg Q4H PRN IV For Anxiety 07/24/18 16:45 07/31/18 16:44 Morphine Sulfate (Morphine Sulfate) 1 mg Q4H PRN IVP For Pain 07/24/18 12:45 07/31/18 12:44 Olanzapine (ZyPREXA) 10 mg DAILY GT 07/25/18 09:00 08/24/18 08:59 Ondansetron HCl (Zofran) 4 mg Q6H PRN IVP Nausea & Vomiting 07/24/18 12:45 08/23/18 12:44 GI: Plan Problems: (1) feeding by Jt (2) Malfunction of jejunostomy tube (3) Feeding by G-tube (4) Alzheimer's dementia Plan J tube replacement scheduled for tomorrow. - maintain NPO + IVFs - hold all blood thinners ST evaluation for possible oral gratification will follow with additional recs post procedure Discussed with Dr. Mcneil. Thank you for this patient referral, we will follow. The patient was seen and examined at bedside and all new and available data was reviewed in the patients chart. I agree with the above findings, impression and plan. (Patient seen earlier today. Signature stamp does not reflect patient encounter time.). - MD [facility] PH[facility]GR[facility]HER Jul 24, 2018 16:43
--- NOTE | 2018-07-24 16:56 | History & Physical ---
History and Physical History & Physicial Dictated for Int Med-Dr Joyce no. [id number]. Manjinder Marley MD Jul 24, 2018 16:56
[2018-07-24 20:00] VITALS: BP 107/72
[2018-07-24] MEDS: levETIRAcetam 500mg/5ml Liquid GT SCH (20:40)
[2018-07-24] MEDS: Heparin 5000 units/ml inj SUBQ SCH (20:40)
--- NOTE | 2018-07-24 21:15 | Consultation ---
DATE OF CONSULTATION: 07/24/2018 INFECTIOUS DISEASE CONSULTATION CONSULTING PHYSICIAN: Sanya Dodson M.D. REFERRING PHYSICIAN: Dony Sanchez M.D. REASON FOR CONSULTATION: Evaluation of the patient for possible J-tube site infection and antibiotic management. HISTORY OF PRESENT ILLNESS: The patient is a 58-year-old male with multiple medical problems, who came to the hospital with J-tube dysfunction. According to the nurse, the patient has some drainage from the site. The patient is not able to provide information due to the patient's mental status. Infectious Disease consultation has been requested for further evaluation of the patient and antibiotic management. PAST MEDICAL HISTORY: 1. Dementia. 2. Seizure disorder. 3. CVA. 4. Hypertension. 5. History of duodenal ulcer. 6. Status post J-tube placement. 7. History of left BKA. 8. Diabetes. MEDICATIONS: Off of antibiotics. ALLERGIES: Allergic to penicillin. FAMILY HISTORY: Unavailable. REVIEW OF SYSTEMS: Unobtainable. PHYSICAL EXAMINATION: VITAL SIGNS: Temperature 95.8, pulse 86, respiratory rate 18, and blood pressure 124/74. HEENT: No pale conjunctivitis. No icterus. NECK: No lymphadenopathy. CHEST: Clear. HEART: S1 and S2. ABDOMEN: Soft. J-tube in place. Minimal erythema around the site. I could not appreciate any drainage on abdominal exam. EXTREMITY: Left BKA. Wound healed. NEUROLOGIC: Awake. LABORATORY DATA: White blood cells 9.3, hemoglobin 12.7, and platelets 363,000. BUN 18 and creatinine 0.6. Chest x-ray, no acute process (06/19/2018). ASSESSMENT: The patient is a 58-year-old male, with mild J-tube site erythema (does not appear to be clinically significant at this point). 1. J-tube malfunction. 2. Afebrile. 3. Normal white blood cells. PLAN: 1. Monitor the patient clinically off of antibiotics. 2. Monitor CBC. 3. Monitor BMP. 4. Based on the patient's clinical course and laboratories, we will do further recommendations.. Sanya Dodson M.D. DR: SAGAR JOB#: [id number] CC:
--- NOTE | 2018-07-24 22:45 | History and Physical Report ---
DATE OF ADMISSION: 07/24/2018 CHIEF COMPLAINT: The patient is a 58-year-old male, presents with complaint of malfunctioning jejunostomy tube. HISTORY OF PRESENT ILLNESS: The patient was admitted to [facility] on 06/19/2018 to 06/25/2018. Please see history and physical and discharge summary dictated at that time. The patient is resident of [facility]. According to staff at [facility], the patient's Jejunostomy tube was nonfunctional. The patient presented to [place] emergency room. The patient was admitted for nonfunctional jejunostomy tube. REVIEW OF SYSTEMS: Unable to assess secondary to the patient's mental status. PAST MEDICAL HISTORY: Significant for: 1. Diabetes type 1. 2. Hypertension. 3. History of seizure disorder. 4. Cerebrovascular disease, status post cerebrovascular accident. 5. Multi-infarct dementia. PAST SURGICAL HISTORY: Significant for: 1. Duodenal to transverse colon fistulotomy on 05/25/2018. 2. Laparoscopic placement of jejunostomy tube. 3. PEG placement. 4. PEG reversal. 5. Left [id number] amputation. CURRENT MEDICATIONS: 1. Tylenol 650 mg per J-tube q.4 hours p.r.n. 2. Keppra 1000 mg per J-tube q.12 hours. 3. Levsin 0.125 mg sublingually q.4 hours p.r.n. 4. Lexapro 10 mg per J-tube daily. 5. Midodrine 5 mg three tablets per G-tube q.8 hours. 6. Morphine sulfate 100 mg per G-tube q.4 hours p.r.n. 7. Mylanta 30 mL per G-tube q.6 hours p.r.n. 8. [place] 5/325 one tablet per J-tube q.4 hours p.r.n. 9. MiraLax 17 g per J-tube daily p.r.n. 10. Zofran 4 mg sublingual q.4 hours p.r.n. 11. Zyprexa 10 mg per J-tube at bedtime. ALLERGIES: 1. Valproic acid. 2. Penicillin. SOCIAL HISTORY: The patient is single and lives at rehabilitation center [facility]. The patient denies tobacco or alcohol use. PHYSICAL EXAMINATION: VITAL SIGNS: Temperature 95.1 to 98.6, respirations 11 to 20, pulse 103 to 108, and blood pressure 94 to 124 over 74 to 76. GENERAL: The patient is thin-appearing white male, in no apparent distress. HEENT: Eyes, pupils equal and responsive to light and accommodation. Extraocular movements are intact. NECK: Supple without lymphadenopathy. CHEST: Lungs are clear to auscultation bilaterally without wheezes or rales. CARDIOVASCULAR: Regular rate. S1 and S2 are normal without murmurs, rubs, or gallops. ABDOMEN: Soft, nontender, and nondistended. Positive bowel sounds. No evidence of hepatosplenomegaly. Currently, no rebound or guarding noted. EXTREMITIES: Negative for clubbing, cyanosis, or edema. RECTAL: Refused. GENITAL: Refused. NEUROLOGIC: Cranial nerves II through XII are grossly intact without focal deficits. Motor strength is 5/5 bilaterally. Deep tendon reflexes are 2+ plantar. LABORATORY STUDIES: WBC 9.2, hemoglobin 12.7, hematocrit 37.1, and platelets 363,000. Sodium 136, potassium 4.3, chloride 99, CO2 of 27, BUN 18, creatinine 0.6, and glucose 149. ASSESSMENT AND PLAN: This is a 58-year-old white male. 1. Malfunctioning jejunostomy tube. A Gastroenterology consultation with Dr. Louis Mcneil. We will follow recommendations of Dr. Mcneil. The patient required endoscopic placement of jejunostomy tube in the past hospitalization. 2. Diabetes type 1. The patient has been placed on a NovoLog sliding scale. 3. Seizure disorder. Continue Keppra as above. 4. Hypotension. Continue midodrine as above. 5. Multi-infarct dementia. Manjinder Marley M.D. DR: MALIA JOB#: [id number] CC:
[2018-07-24 23:57] VITALS: BP 112/71
[2018-07-25] VITALS (8 sets, daily range): BP systolic 103–121; BP diastolic 67–75
[2018-07-25] MEDS: NovoLOG Insulin Flexpen SUBQ SCH ×2 (05:57→13:15)
[2018-07-25 06:29] LABS: BASOPHILS % (AUTO) 0.6 % (0.0-2.0); EOSINOPHILS % (AUTO) 1.8 % (0.0-3.0); HEMATOCRIT 36.5 % (42.0-52.0); HEMOGLOBIN 12.8 G/DL (14.2-18.0); LYMPHOCYTES % (AUTO) 26.6 % (20.0-45.0); MEAN CORPUSCULAR VOLUME 89 FL (80-99); MONOCYTES % (AUTO) 9.6 % (1.0-10.0); NEUTROPHILS % (AUTO) 61.5 % (45.0-75.0); PLATELET COUNT 368 K/UL (150-450); RED CELL DISTRIBUTION WIDTH 13.9 % (11.6-14.8); WHITE BLOOD COUNT 5.9 K/UL (4.8-10.8)
[2018-07-25 06:30] LABS: INR 1.1 (0.9-1.1)
[2018-07-25 07:12] LABS: ALANINE AMINOTRANSFERASE 60 U/L (12-78); ALBUMIN 3.3 G/DL (3.4-5.0); ALBUMIN/GLOBULIN RATIO 0.6 (1.0-2.7); ALKALINE PHOSPHATASE 127 U/L (46-116); ANION GAP 7 mmol/L (5-15); ASPARTATE AMINO TRANSFERASE 26 U/L (15-37); BILIRUBIN,TOTAL 1.1 MG/DL (0.2-1.0); BLOOD UREA NITROGEN 18 mg/dL (7-18); CALCIUM 10.1 MG/DL (8.5-10.1); CARBON DIOXIDE 28 MMOL/L (21-32); CHLORIDE 101 MMOL/L (98-107); CREATININE 0.6 MG/DL (0.55-1.30); POTASSIUM 4.2 MMOL/L (3.5-5.1); SODIUM 136 MMOL/L (136-145)
[2018-07-25 07:15] LABS: BILIRUBIN,DIRECT 0.3 MG/DL (0.0-0.3)
[2018-07-25] MEDS: D5 1/2NS 1,000 ML IV SCH (08:16)
[2018-07-25] MEDS: levETIRAcetam 500mg/5ml Liquid GT SCH (08:47)
[2018-07-25] MEDS: Heparin 5000 units/ml inj SUBQ SCH (08:47)
[2018-07-25] MEDS ORDERED: OLANZapine 10mg tab GT SCH (09:00)
--- NOTE | 2018-07-25 10:35 | Pre-Procedure Note/Attestation ---
Pre-Procedure Note/Attestation Complete Prior to Procedure Planned Procedure: not applicable Procedure Narrative: egd/J ot GT placement Indications for Procedure Pre-Operative Diagnosis: clogged feeding tube Attestation I attest that I discussed the nature of the procedure; its benefits; risks and complications; and alternatives (and the risks and benefits of such alternatives ), prior to the procedure, with the patient (or the patient's legal labor union business representative). I attest that, if there was a reasonable possibility of needing a blood transfusion, the patient (or the patient's legal labor union business representative) was given the [facility] standardized written summary, pursuant to the Bruce Derek Blood Safety Act ([place] Health and Safety Code # 1645, as amended). I attest that I re-evaluated the patient just prior to the surgery and that there has been no change in the patient's H&P, except as documented below: Louis Mcneil MD Jul 25, 2018 10:35
[2018-07-25] MEDS ORDERED: NS 500ML IVPB ONE (10:45)
[2018-07-25] MEDS ORDERED: Lidocaine 1% MPF 10mg/ml 5ml ONE (10:51)
[2018-07-25] MEDS ORDERED: Propofol 200mg/20ml IV ONE (10:51)
--- NOTE | 2018-07-25 10:57 | Internal Med Progress Note ---
Subjective Date of Service: Jul 25, 2018 Physician Name Manjinder Marley Attending Physician Ean Joyce MD Current Medications Medications (Trade) Dose Ordered Sig/Cristofer Route PRN Reason Start Time Stop Time Status Last Admin Dose Admin Dextrose (Dextrose 50%) 25 ml Q30M PRN IV Hypoglycemia 07/24/18 16:00 08/23/18 15:59 Dextrose (Dextrose 50%) 50 ml Q30M PRN IV Hypoglycemia 07/24/18 16:00 08/23/18 15:59 Dextrose/Sodium Chloride 1,000 ml @ 50 mls/hr Q20H IV 07/24/18 12:44 08/23/18 12:43 07/25/18 08:16 Heparin Sodium (Porcine) (Heparin 5000 units/ml) 5,000 units EVERY 12 HOURS SUBQ 07/24/18 21:00 08/23/18 20:59 Insulin Aspart (NovoLOG) BEFORE MEALS AND HS SUBQ 07/24/18 16:30 08/23/18 16:29 Levetiracetam (Keppra) 1,000 mg Q12HR GT 07/24/18 21:00 08/23/18 20:59 Lorazepam (Ativan 2mg/ml 1ml) 1 mg Q4H PRN IV For Anxiety 07/24/18 16:45 07/31/18 16:44 Morphine Sulfate (Morphine Sulfate) 1 mg Q4H PRN IVP For Pain 07/24/18 12:45 07/31/18 12:44 Olanzapine (ZyPREXA) 10 mg DAILY GT 07/25/18 09:00 08/24/18 08:59 Ondansetron HCl (Zofran) 4 mg Q6H PRN IVP Nausea & Vomiting 07/24/18 12:45 08/23/18 12:44 Allergies: Coded Allergies: DIVALPROEX SODIUM (Verified Allergy, Unknown, 06/01/18) PENICILLINS (Unverified Allergy, Unknown, 06/01/18) ROS Limited/Unobtainable: Yes Subjective 58 YO M admitted with malfunctioning jejunostomy tube. Await J-tube replacement on 07/26/18. Cover for Int Med-Dr Joyce. Objective Last Vital Signs Date Time Temp Pulse Resp B/P (MAP) Pulse Ox O2 Delivery O2 Flow Rate FiO2 07/25/18 08:55 Room Air 07/25/18 08:00 97.5 110 18 103/68 (80) 98 General Appearance: WD/WN, alert, thin EENT: PERRL/EOMI, normal ENT inspection Neck: non-tender, normal alignment, supple, normal inspection Cardiovascular: normal peripheral pulses, normal rate, regular rhythm, no gallop/murmur, no JVD Respiratory/Chest: chest wall non-tender, lungs clear, normal breath sounds, no respiratory distress, no accessory muscle use Abdomen: normal bowel sounds, non tender, soft, no organomegaly, no mass Extremities: normal range of motion, non-tender Neurologic: lead 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 II-XII grossly normal, no motor/sensory deficits Skin: normal pigmentation, warm/dry Laboratory Tests Test 07/24/18 11:45 07/25/18 06:00 White Blood Count 9.2 K/UL (4.8-10.8) 5.9 K/UL (4.8-10.8) Red Blood Count 4.16 M/UL (4.70-6.10) L 4.10 M/UL (4.70-6.10) L Hemoglobin 12.7 G/DL (14.2-18.0) L 12.8 G/DL (14.2-18.0) L Hematocrit 37.1 % (42.0-52.0) L 36.5 % (42.0-52.0) L Mean Corpuscular Volume 89 FL (80-99) 89 FL (80-99) Mean Corpuscular Hemoglobin 30.5 PG (27.0-31.0) 31.3 PG (27.0-31.0) H Mean Corpuscular Hemoglobin Concent 34.2 G/DL (32.0-36.0) 35.2 G/DL (32.0-36.0) Red Cell Distribution Width 13.6 % (11.6-14.8) 13.9 % (11.6-14.8) Platelet Count 363 K/UL (150-450) 368 K/UL (150-450) Mean Platelet Volume 7.5 FL (6.5-10.1) 7.3 FL (6.5-10.1) Neutrophils (%) (Auto) 75.0 % (45.0-75.0) 61.5 % (45.0-75.0) Lymphocytes (%) (Auto) 15.4 % (20.0-45.0) L 26.6 % (20.0-45.0) Monocytes (%) (Auto) 7.8 % (1.0-10.0) 9.6 % (1.0-10.0) Eosinophils (%) (Auto) 1.3 % (0.0-3.0) 1.8 % (0.0-3.0) Basophils (%) (Auto) 0.6 % (0.0-2.0) 0.6 % (0.0-2.0) Prothrombin Time 11.0 SEC (9.30-11.50) 11.3 SEC (9.30-11.50) Prothromb Time International Ratio 1.0 (0.9-1.1) 1.1 (0.9-1.1) Activated Partial Thromboplast Time 27 SEC (23-33) 27 SEC (23-33) Sodium Level 136 MMOL/L (136-145) 136 MMOL/L (136-145) Potassium Level 4.3 MMOL/L (3.5-5.1) 4.2 MMOL/L (3.5-5.1) Chloride Level 99 MMOL/L (98-107) 101 MMOL/L (98-107) Carbon Dioxide Level 27 MMOL/L (21-32) 28 MMOL/L (21-32) Anion Gap 10 mmol/L (5-15) 7 mmol/L (5-15) Blood Urea Nitrogen 18 mg/dL (7-18) 18 mg/dL (7-18) Creatinine 0.6 MG/DL (0.55-1.30) 0.6 MG/DL (0.55-1.30) Estimat Glomerular Filtration Rate > 60 mL/min (>60) > 60 mL/min (>60) Glucose Level 149 MG/DL (74-106) H 151 MG/DL (74-106) H Calcium Level 10.4 MG/DL (8.5-10.1) H 10.1 MG/DL (8.5-10.1) Total Bilirubin 1.1 MG/DL (0.2-1.0) H Direct Bilirubin 0.3 MG/DL (0.0-0.3) Aspartate Amino Transf (AST/SGOT) 26 U/L (15-37) Alanine Aminotransferase (ALT/SGPT) 60 U/L (12-78) Alkaline Phosphatase 127 U/L (46-116) H Total Protein 8.7 G/DL (6.4-8.2) H Albumin 3.3 G/DL (3.4-5.0) L Globulin 5.4 g/dL Albumin/Globulin Ratio 0.6 (1.0-2.7) L Microbiology Date/Time Source Procedure Growth Status 07/24/18 17:00 Rectum VRE Culture Pending Resulted 07/24/18 17:00 Rectum - Preliminary Resulted Intake and Output 07/24/18 07/25/18 19:00 07:00 Intake Total 200 ml 500 ml Output Total 200 ml Balance 0 ml 500 ml Intake IV Total 200 ml 500 ml Output Urine Total 200 ml Assessment/Plan Problem List: (1) Cerebral vascular disease (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 See GI note. (4) Diabetes Assessment & Plan: continue novolog (5) Seizure disorder Assessment & Plan: Continue keppra. Status: unchanged Manjinder Marley MD Jul 25, 2018 10:57
[2018-07-25] MEDS ORDERED: Clindamycin 600mg 50 ML IV ONE (11:04)
[2018-07-25] MEDS ORDERED: Atropine Inj 1mg/10ml Syr IV PRN (11:15)
[2018-07-25] MEDS ORDERED: fentaNYL 100 mcg/2 mL IV PRN (11:15)
[2018-07-25] MEDS ORDERED: DiphenhydrAMINE 50mg/ml Inj IVP PRN (11:15)
[2018-07-25] MEDS ORDERED: Midazolam 2mg/2ml Inj IVP PRN (11:15)
--- NOTE | 2018-07-25 11:17 | Anethesia Preoperative Eval ---
Anesthesia Pre-op PMH/ROS General Date of Evaluation: Jul 25, 2018 Time of Evaluation: 10:51 Anesthesiologist: richar ASA Score: ASA 4 Mallampati Score Class I : Soft palate, uvula, fauces, pillars visible Class II: Soft palate, uvula, fauces visible Class III: Soft palate, base of uvula visible Class IV: Only hard plate visible Mallampati Classification: Class II Surgeon: carmelita Diagnosis: dysphagia Surgical Procedure: gtube placement Anesthesia History: none Family History: no anesthesia problems Allergies: Coded Allergies: DIVALPROEX SODIUM (Verified Allergy, Unknown, 06/01/18) PENICILLINS (Unverified Allergy, Unknown, 06/01/18) Medications: see eMAR Patient NPO?: Yes Past Medical History Cardiovascular: Reports: HTN Pulmonary: Reports: other - pneumonia Neurologic/Psychiatric: Reports: CVA, other - alzheimer's dz, sz dz Endocrine: Reports: DM Anesthesia Pre-op Phys. Exam Physician Exam Last Vital Signs Date Time Temp Pulse Resp B/P (MAP) Pulse Ox O2 Delivery O2 Flow Rate FiO2 07/25/18 08:55 Room Air 07/25/18 08:00 97.5 110 18 103/68 (80) 98 Constitutional: NAD Neurologic: CN 2-12 intact Cardiovascular: RRR Respiratory: CTA Gastrointestinal: S/NT/ND Airway Exam Mallampati Score: Class II MO: limited Neck: flexible TMD: 2fb ROM: limited Teeth: missing, broken Anesthesia Pre-op A/P Labs Hematology Test 07/24/18 11:45 07/25/18 06:00 White Blood Count 9.2 K/UL (4.8-10.8) 5.9 K/UL (4.8-10.8) Red Blood Count 4.16 M/UL (4.70-6.10) L 4.10 M/UL (4.70-6.10) L Hemoglobin 12.7 G/DL (14.2-18.0) L 12.8 G/DL (14.2-18.0) L Hematocrit 37.1 % (42.0-52.0) L 36.5 % (42.0-52.0) L Mean Corpuscular Volume 89 FL (80-99) 89 FL (80-99) Mean Corpuscular Hemoglobin 30.5 PG (27.0-31.0) 31.3 PG (27.0-31.0) H Mean Corpuscular Hemoglobin Concent 34.2 G/DL (32.0-36.0) 35.2 G/DL (32.0-36.0) Red Cell Distribution Width 13.6 % (11.6-14.8) 13.9 % (11.6-14.8) Platelet Count 363 K/UL (150-450) 368 K/UL (150-450) Mean Platelet Volume 7.5 FL (6.5-10.1) 7.3 FL (6.5-10.1) Neutrophils (%) (Auto) 75.0 % (45.0-75.0) 61.5 % (45.0-75.0) Lymphocytes (%) (Auto) 15.4 % (20.0-45.0) L 26.6 % (20.0-45.0) Monocytes (%) (Auto) 7.8 % (1.0-10.0) 9.6 % (1.0-10.0) Eosinophils (%) (Auto) 1.3 % (0.0-3.0) 1.8 % (0.0-3.0) Basophils (%) (Auto) 0.6 % (0.0-2.0) 0.6 % (0.0-2.0) Coagulation Test 07/24/18 11:45 07/25/18 06:00 Prothrombin Time 11.0 SEC (9.30-11.50) 11.3 SEC (9.30-11.50) Prothromb Time International Ratio 1.0 (0.9-1.1) 1.1 (0.9-1.1) Activated Partial Thromboplast Time 27 SEC (23-33) 27 SEC (23-33) Chemistry Test 07/24/18 11:45 07/25/18 06:00 Sodium Level 136 MMOL/L (136-145) 136 MMOL/L (136-145) Potassium Level 4.3 MMOL/L (3.5-5.1) 4.2 MMOL/L (3.5-5.1) Chloride Level 99 MMOL/L (98-107) 101 MMOL/L (98-107) Carbon Dioxide Level 27 MMOL/L (21-32) 28 MMOL/L (21-32) Anion Gap 10 mmol/L (5-15) 7 mmol/L (5-15) Blood Urea Nitrogen 18 mg/dL (7-18) 18 mg/dL (7-18) Creatinine 0.6 MG/DL (0.55-1.30) 0.6 MG/DL (0.55-1.30) Estimat Glomerular Filtration Rate > 60 mL/min (>60) > 60 mL/min (>60) Glucose Level 149 MG/DL (74-106) H 151 MG/DL (74-106) H Calcium Level 10.4 MG/DL (8.5-10.1) H 10.1 MG/DL (8.5-10.1) Total Bilirubin 1.1 MG/DL (0.2-1.0) H Direct Bilirubin 0.3 MG/DL (0.0-0.3) Aspartate Amino Transf (AST/SGOT) 26 U/L (15-37) Alanine Aminotransferase (ALT/SGPT) 60 U/L (12-78) Alkaline Phosphatase 127 U/L (46-116) H Total Protein 8.7 G/DL (6.4-8.2) H Albumin 3.3 G/DL (3.4-5.0) L Globulin 5.4 g/dL Albumin/Globulin Ratio 0.6 (1.0-2.7) L Risk Assessment & Plan Assessment: asa4 Plan: mac Pre-Antibiotics Drug: clindamycin 600ml Given Within 1 Hr of Incision: Yes Time Given: 11:10 Teri Mcdonald MD Jul 25, 2018 11:17
--- NOTE | 2018-07-25 11:18 | Endoscopy Procedure Note ---
Endoscopy Procedure Note General Indication for Procedure: dysphagia Procedures Performed: EGD, PEG Operative Findings/Diagnosis: same Specimen: none Pt Tolerated Procedure Well: Yes Estimated Blood Loss: none Anesthesia Anesthesiologist: estefania hess Anesthesia: MAC Inserted Devices Implant(s) used?: No GI Core Measures 50 yrs or older w/o bx or poly: Not Applicable 10yrs. F/U not recommended: Not Applicable Louis Mcneil MD Jul 25, 2018 11:18
--- NOTE | 2018-07-25 11:40 | Immediate Post-Op Evaluation ---
Immediate Post-Op Evalulation Immediate Post-Op Evalulation Procedure: g-tube placement Date of Evaluation: Jul 25, 2018 Time of Evaluation: 11:38 IV Fluids: 350ml 0.9ns Blood Products: none Estimated Blood Loss: negligible Blood Pressure Systolic: 111 Blood Pressure Diastolic: 67 Pulse Rate: 94 Respiratory Rate: 18 O2 Sat by Pulse Oximetry: 100 Temperature (Fahrenheit): 97.3 Pain Score (1-10): 0 Nausea: No Vomiting: No Complications none Patient Status: awake, reacts, patent Hydration Status: adequate Drug: clindamycin 600mg Given Within 1 Hr of Incision: Yes Time Given: 11:10 Teri Mcdonald MD Jul 25, 2018 11:40
--- NOTE | 2018-07-25 11:42 | 48 Hour Post Anesthesia Eval ---
Post Anesthesia Evaluation Procedure: g-tube placement Date of Evaluation: Jul 25, 2018 Time of Evaluation: 11:40 Blood Pressure Systolic: 120 0: 70 Pulse Rate: 95 Respiratory Rate: 18 Temperature (Fahrenheit): 97.3 O2 Sat by Pulse Oximetry: 100 Airway: patent Nausea: No Vomiting: No Pain Intensity: 0 Hydration Status: adequate Cardiopulmonary Status: stable Mental Status/LOC: patient returned to baseline Post-Anesthesia Complications: none Follow-up care needed: N/A Teri Mcdonald MD Jul 25, 2018 11:42
--- NOTE | 2018-07-25 13:52 | Consultation ---
History of Present Illness General Date patient seen: Jul 25, 2018 Chief Complaint: Malfunctioning Gastric Tube Referring physician: TERELL BOSWELL Reason for Consultation: J TUBE MALFUNCTION Present Illness HPI 58 year old male with hx of CVA with PEG, group home resident presented from a half-way facility for inability to use the J-tube. There are no other complaints. the tube has been changed meanwhile Allergies: Coded Allergies: DIVALPROEX SODIUM (Verified Allergy, Unknown, 06/01/18) PENICILLINS (Unverified Allergy, Unknown, 06/01/18) Medication History Scheduled Albuterol Sulfate (Albuterol Sulfate), 0.63 MG HHN Q4HR, (Reported) Bisacodyl (Bisacodyl), 10 MG RC PRN, (Reported) Ceftriaxone Sodium (Ceftriaxone), 1 GM IV DAILY Escitalopram Oxalate* (Lexapro*), 10 MG GT DAILY, (Reported) Heparin Sod (Porcine) (Heparin Sodium*), 5,000 UNITS SUBQ EVERY 12 HOURS, ( Reported) Hyoscyamine Sulfate* (Levsin-Sl*), 0.125 MG SL EVERY 4 HOURS, (Reported) Levetiracetam (Keppra), 500 MG NG Q12HR Levetiracetam (Keppra), 1,000 MG GT Q12HR Mag Hydrox/Al Hydrox/Simeth (Alum-Mag Hydroxide-Simeth Liq), 30 ML GT EVERY 6 HOURS, (Reported) Midodrine (Midodrine HCl), 10 MG ORAL Q8HR Midodrine (Midodrine HCl), 15 MG GT THREE TIMES A DAY, (Reported) Olanzapine* (Zyprexa*), 10 MG GT DAILY, (Reported) Sennosides (Senna), 8.6 MG GT DAILY, (Reported) Scheduled PRN Acetaminophen* (Acetaminophen 325MG Tablet*), 650 MG GT Q4H PRN for Mild Pain/ Temp > 100.5, (Reported) Hydrocodone Bit/Acetaminophen 5-325* (Eckerman 5-325*), 1 TAB GT Q4H PRN for For Pain, (Reported) Morphine 10mg/5ml Oral Soln* (Morphine 10mg/5ml Oral Soln*), 10 MG ORAL EVERY 4 HOURS PRN for For Pain, (Reported) Ondansetron Odt* (Zofran Odt*), 4 MG SL Q4HR PRN for Nausea & Vomiting, ( Reported) Ondansetron* (Zofran*), 4 MG GT Q6H PRN for Nausea & Vomiting, (Reported) Polyethylene Glycol 3350* (Polyethylene Glycol 3350*), 17 GM GT BEDTIME PRN for Constipation, (Reported) Quetiapine Fumarate* (Seroquel*), 25 MG ORAL Q6H PRN Miscellaneous Medications Ferrous Fumarate (Ferrous Fumarate), 324 MG PO, (Reported) Insulin Aspart* (Novolog*), 0 SUBQ, (Reported) Patient History Healthcare decision maker Resuscitation status Advanced Directive on File No Past Medical/Surgical History Past Medical/Surgical History: (1) Feeding by G-tube (2) Alzheimer's dementia (3) Dementia, multi-infarct (4) Cerebral vascular disease Review of Systems All Other Systems: negative except mentioned in HPI Physical Exam General Appearance: cachetic Lines, tubes and drains: peripheral HEENT: normocephalic, atraumatic Neck: non-tender, normal alignment Respiratory/Chest: chest wall non-tender, lungs clear Breasts: no masses Cardiovascular/Chest: normal peripheral pulses Abdomen: normal bowel sounds Genitourinary/Rectal: normal genital exam Last 24 Hour Vital Signs Date Time Temp Pulse Resp B/P (MAP) Pulse Ox O2 Delivery O2 Flow Rate FiO2 07/25/18 12:13 97.2 95 18 109/72 (84) 98 07/25/18 11:43 98.0 98 15 121/72 100 Nasal Cannula 3 07/25/18 11:42 95 18 100 07/25/18 11:40 94 18 100 07/25/18 11:36 98 15 121/72 100 Nasal Cannula 3 07/25/18 11:31 97 14 120/67 100 Nasal Cannula 3 07/25/18 11:26 97.3 94 18 111/67 100 Nasal Cannula 3 07/25/18 08:55 Room Air 07/25/18 08:00 97.5 110 18 103/68 (80) 98 07/25/18 04:00 98.0 99 18 113/75 (88) 98 07/24/18 23:57 98.2 108 19 112/71 (85) 97 07/24/18 20:00 98.0 104 19 107/72 (84) 98 07/24/18 16:13 97.8 108 20 99/65 (76) 95 07/24/18 14:28 98.6 105 20 124/74 96 Room Air 07/24/18 14:12 98.6 105 20 124/74 (91) 96 Intake and Output 07/24/18 07/25/18 19:00 07:00 Intake Total 200 ml 500 ml Output Total 200 ml Balance 0 ml 500 ml Intake IV Total 200 ml 500 ml Output Urine Total 200 ml Laboratory Tests Test 07/25/18 06:00 White Blood Count 5.9 K/UL (4.8-10.8) Red Blood Count 4.10 M/UL (4.70-6.10) L Hemoglobin 12.8 G/DL (14.2-18.0) L Hematocrit 36.5 % (42.0-52.0) L Mean Corpuscular Volume 89 FL (80-99) Mean Corpuscular Hemoglobin 31.3 PG (27.0-31.0) H Mean Corpuscular Hemoglobin Concent 35.2 G/DL (32.0-36.0) Red Cell Distribution Width 13.9 % (11.6-14.8) Platelet Count 368 K/UL (150-450) Mean Platelet Volume 7.3 FL (6.5-10.1) Neutrophils (%) (Auto) 61.5 % (45.0-75.0) Lymphocytes (%) (Auto) 26.6 % (20.0-45.0) Monocytes (%) (Auto) 9.6 % (1.0-10.0) Eosinophils (%) (Auto) 1.8 % (0.0-3.0) Basophils (%) (Auto) 0.6 % (0.0-2.0) Prothrombin Time 11.3 SEC (9.30-11.50) Prothromb Time International Ratio 1.1 (0.9-1.1) Activated Partial Thromboplast Time 27 SEC (23-33) Sodium Level 136 MMOL/L (136-145) Potassium Level 4.2 MMOL/L (3.5-5.1) Chloride Level 101 MMOL/L (98-107) Carbon Dioxide Level 28 MMOL/L (21-32) Anion Gap 7 mmol/L (5-15) Blood Urea Nitrogen 18 mg/dL (7-18) Creatinine 0.6 MG/DL (0.55-1.30) Estimat Glomerular Filtration Rate > 60 mL/min (>60) Glucose Level 151 MG/DL (74-106) H Calcium Level 10.1 MG/DL (8.5-10.1) Total Bilirubin 1.1 MG/DL (0.2-1.0) H Direct Bilirubin 0.3 MG/DL (0.0-0.3) Aspartate Amino Transf (AST/SGOT) 26 U/L (15-37) Alanine Aminotransferase (ALT/SGPT) 60 U/L (12-78) Alkaline Phosphatase 127 U/L (46-116) H Total Protein 8.7 G/DL (6.4-8.2) H Albumin 3.3 G/DL (3.4-5.0) L Globulin 5.4 g/dL Albumin/Globulin Ratio 0.6 (1.0-2.7) L Microbiology Date/Time Source Procedure Growth Status 07/24/18 17:00 Rectum VRE Culture Pending Resulted 07/24/18 17:00 Rectum - Preliminary Resulted Height (Feet): 5 Height (Inches): 5.00 Weight (Pounds): 131 Medications Current Medications Medications (Trade) Dose Ordered Sig/Cristofer Route PRN Reason Start Time Stop Time Status Last Admin Dose Admin Al Hydroxide/Mg Hydroxide (Mylanta) 15 ml Q1H PRN ORAL gi upset 07/25/18 11:15 07/25/18 17:00 Atropine Sulfate (Atropine) 0.5 mg Q5M PRN IV bpm less than 45 07/25/18 11:15 07/25/18 17:00 Dextrose (Dextrose 50%) 25 ml Q30M PRN IV Hypoglycemia 07/24/18 16:00 08/23/18 15:59 Dextrose (Dextrose 50%) 50 ml Q30M PRN IV Hypoglycemia 07/24/18 16:00 08/23/18 15:59 Dextrose/Sodium Chloride 1,000 ml @ 50 mls/hr Q20H IV 07/24/18 12:44 08/23/18 12:43 07/25/18 08:16 Diphenhydramine HCl (Benadryl) 25 mg Q15M PRN IVP Itching 07/25/18 11:15 07/25/18 17:00 Fentanyl Citrate (Sublimaze 100 mcg/2 mL) 25 mcg Q10M PRN IV Moderate Pain (Pain Scale 4-6) 07/25/18 11:15 07/25/18 17:00 Heparin Sodium (Porcine) (Heparin 5000 units/ml) 5,000 units EVERY 12 HOURS SUBQ 07/24/18 21:00 08/23/18 20:59 Hydralazine HCl (Apresoline) 5 mg Q30M PRN IV SBP>160 OR___/DBP>90 OR___ 07/25/18 11:15 07/25/18 17:00 Insulin Aspart (NovoLOG) BEFORE MEALS AND HS SUBQ 07/24/18 16:30 08/23/18 16:29 07/25/18 13:15 Levetiracetam (Keppra) 1,000 mg Q12HR GT 07/24/18 21:00 08/23/18 20:59 Lorazepam (Ativan 2mg/ml 1ml) 1 mg Q4H PRN IV For Anxiety 07/24/18 16:45 07/31/18 16:44 Midazolam HCl (Versed 2mg/2ml vial) 1 mg Q15M PRN IVP For Anxiety 07/25/18 11:15 07/25/18 17:00 Morphine Sulfate (Morphine Sulfate) 1 mg Q4H PRN IVP For Pain 07/24/18 12:45 07/31/18 12:44 Olanzapine (ZyPREXA) 10 mg DAILY GT 07/25/18 09:00 08/24/18 08:59 Ondansetron HCl (Zofran) 4 mg Q1H PRN IVP Nausea & Vomiting 07/25/18 11:15 07/25/18 17:00 Ondansetron HCl (Zofran) 4 mg Q6H PRN IVP Nausea & Vomiting 07/24/18 12:45 08/23/18 12:44 Sodium Chloride 1,000 ml @ 10 mls/hr Q24H IVLG 07/25/18 11:10 07/25/18 17:00 Assessment/Plan Problem List: (1) Malfunction of jejunostomy tube ICD Codes: K94.13 - Enterostomy malfunction SNOMED: 105245707, 355695897 (2) Seizure disorder ICD Codes: G40.909 - Epilepsy, unspecified, not intractable, without status epilepticus SNOMED: 797808343 (3) 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
--- NOTE | 2018-07-25 16:09 | General Progress Note ---
Assessment/Plan Problem List: (1) Alzheimer's dementia ICD Codes: G30.9 - Alzheimer's disease, unspecified; F02.80 - Dementia in other diseases classified elsewhere without behavioral disturbance SNOMED: 56148408 (2) MDD (major depressive disorder), recurrent episode, moderate ICD Codes: F33.1 - Major depressive disorder, recurrent, moderate SNOMED: 77511874, 283785727 Assessment/Plan zyprexa dc seroquel provided ro/st ativan prn Subjective Allergies: Coded Allergies: DIVALPROEX SODIUM (Verified Allergy, Unknown, 06/01/18) PENICILLINS (Unverified Allergy, Unknown, 06/01/18) Objective Last 24 Hour Vital Signs Date Time Temp Pulse Resp B/P (MAP) Pulse Ox O2 Delivery O2 Flow Rate FiO2 07/25/18 12:13 97.2 95 18 109/72 (84) 98 07/25/18 11:43 98.0 98 15 121/72 100 Nasal Cannula 3 07/25/18 11:42 95 18 100 07/25/18 11:40 94 18 100 07/25/18 11:36 98 15 121/72 100 Nasal Cannula 3 07/25/18 11:31 97 14 120/67 100 Nasal Cannula 3 07/25/18 11:26 97.3 94 18 111/67 100 Nasal Cannula 3 07/25/18 08:55 Room Air 07/25/18 08:00 97.5 110 18 103/68 (80) 98 07/25/18 04:00 98.0 99 18 113/75 (88) 98 07/24/18 23:57 98.2 108 19 112/71 (85) 97 07/24/18 20:00 98.0 104 19 107/72 (84) 98 07/24/18 16:13 97.8 108 20 99/65 (76) 95 Intake and Output 07/24/18 07/25/18 19:00 07:00 Intake Total 200 ml 500 ml Output Total 200 ml Balance 0 ml 500 ml Intake IV Total 200 ml 500 ml Output Urine Total 200 ml Laboratory Tests 07/25/18 06:00: White Blood Count 5.9, Red Blood Count 4.10L, Hemoglobin 12.8L, Hematocrit 36.5L , Mean Corpuscular Volume 89, Mean Corpuscular Hemoglobin 31.3H, Mean Corpuscular Hemoglobin Concent 35.2, Red Cell Distribution Width 13.9, Platelet Count 368, Mean Platelet Volume 7.3, Neutrophils (%) (Auto) 61.5, Lymphocytes (% ) (Auto) 26.6, Monocytes (%) (Auto) 9.6, Eosinophils (%) (Auto) 1.8, Basophils ( %) (Auto) 0.6, Prothrombin Time 11.3, Prothromb Time International Ratio 1.1, Activated Partial Thromboplast Time 27, Sodium Level 136, Potassium Level 4.2, Chloride Level 101, Carbon Dioxide Level 28, Anion Gap 7, Blood Urea Nitrogen 18 , Creatinine 0.6, Estimat Glomerular Filtration Rate > 60, Glucose Level 151H, Calcium Level 10.1, Total Bilirubin 1.1H, Direct Bilirubin 0.3, Aspartate Amino Transf (AST/SGOT) 26, Alanine Aminotransferase (ALT/SGPT) 60, Alkaline Phosphatase 127H, Total Protein 8.7H, Albumin 3.3L, Globulin 5.4, Albumin/ Globulin Ratio 0.6L Height (Feet): 5 Height (Inches): 5.00 Weight (Pounds): 131 Katherine Orozco MD Jul 25, 2018 16:09
--- NOTE | 2018-07-25 17:00 | Procedure Note ---
DATE OF PROCEDURE: 07/25/2018 SURGEON: Louis Mcneil M.D. PROCEDURE: Upper endoscopy with PEG placement. ANESTHESIA: Per Dr. Robbins. INSTRUMENT: Olympus adult flexible upper endoscope. INDICATION: Dysphagia, failure to thrive, malfunctioning J-tube. The procedure, risks, benefits, and possible consequences, including hemorrhage, aspiration, perforation and infection, and alternative treatments, were explained to the patient/legal guardian by Dr. Louis Mcneil and the patient/legal guardian understood and accepted these risks. DESCRIPTION OF PROCEDURE: After informed consent was obtained and the patient was adequately sedated, Olympus upper endoscope was advanced from the mouth into the second portion of the duodenum and retroflexion performed in the stomach. The patient had evidence of atrophic gastritis. Mild duodenitis. The tube that was placed in the abdomen actually was J-tube. It was not in the stomach. Given that it was already clogged up, we removed the sutures and removed the J-tube. Then under endoscopic guidance under sterile condition, a 20-[place] pull type of G-tube was successfully placed in the epigastric area. The distance from the tip of the tube to skin was about 3 cm in size. The patient tolerated procedure very well without any complication. SUMMARY OF FINDINGS: 1. Atrophic gastritis. 2. Duodenitis. 3. Status post successful G-tube placement. RECOMMENDATIONS: 1. Abdominal binder. 2. Elevate the head of the bed at all times. 3. G-tube flush. 4. G-tube care. 5. We will start tube feeding later today. I want to thank, Dr. Ean Joyce, for this kind referral. Louis Mcneil M.D. DR: Addie JOB#: [id number] CC: Ean Joyce M.D.; Fax#: [phone]
--- NOTE | 2018-07-25 17:02 | Infectious Diseases Prog Note ---
Assessment/Plan Assessment/Plan ASSESSMENT: The patient is a 58-year-old male, with mild J-tube site erythema (does not appear to be clinically significant at this point). J-tube malfunction. Afebrile. Normal white blood cells. Dementia. Seizure disorder. CVA. Hypertension. History of duodenal ulcer. Status post J-tube placement. History of left BKA. Diabetes. PLAN: 1. Monitor the patient clinically off of antibiotics. 2. Monitor CBC. 3. Monitor BMP. Subjective Allergies: Coded Allergies: DIVALPROEX SODIUM (Verified Allergy, Unknown, 06/01/18) PENICILLINS (Unverified Allergy, Unknown, 06/01/18) Subjective DC planning today Objective Vital Signs Last 24 Hour Vital Signs Date Time Temp Pulse Resp B/P (MAP) Pulse Ox O2 Delivery O2 Flow Rate FiO2 07/25/18 16:22 98.2 105 18 121/70 (87) 98 07/25/18 12:13 97.2 95 18 109/72 (84) 98 07/25/18 11:43 98.0 98 15 121/72 100 Nasal Cannula 3 07/25/18 11:42 95 18 100 07/25/18 11:40 94 18 100 07/25/18 11:36 98 15 121/72 100 Nasal Cannula 3 07/25/18 11:31 97 14 120/67 100 Nasal Cannula 3 07/25/18 11:26 97.3 94 18 111/67 100 Nasal Cannula 3 07/25/18 08:55 Room Air 07/25/18 08:00 97.5 110 18 103/68 (80) 98 07/25/18 04:00 98.0 99 18 113/75 (88) 98 07/24/18 23:57 98.2 108 19 112/71 (85) 97 07/24/18 20:00 98.0 104 19 107/72 (84) 98 Height (Feet): 5 Height (Inches): 5.00 Weight (Pounds): 131 HEENT: anicteric Respiratory/Chest: no accessory muscle use Cardiovascular: regularly irregular Microbiology Date/Time Source Procedure Growth Status 07/24/18 17:00 Rectum VRE Culture Pending Resulted 07/24/18 17:00 Rectum - Preliminary Resulted Laboratory Tests Test 07/25/18 06:00 White Blood Count 5.9 K/UL (4.8-10.8) Red Blood Count 4.10 M/UL (4.70-6.10) L Hemoglobin 12.8 G/DL (14.2-18.0) L Hematocrit 36.5 % (42.0-52.0) L Mean Corpuscular Volume 89 FL (80-99) Mean Corpuscular Hemoglobin 31.3 PG (27.0-31.0) H Mean Corpuscular Hemoglobin Concent 35.2 G/DL (32.0-36.0) Red Cell Distribution Width 13.9 % (11.6-14.8) Platelet Count 368 K/UL (150-450) Mean Platelet Volume 7.3 FL (6.5-10.1) Neutrophils (%) (Auto) 61.5 % (45.0-75.0) Lymphocytes (%) (Auto) 26.6 % (20.0-45.0) Monocytes (%) (Auto) 9.6 % (1.0-10.0) Eosinophils (%) (Auto) 1.8 % (0.0-3.0) Basophils (%) (Auto) 0.6 % (0.0-2.0) Prothrombin Time 11.3 SEC (9.30-11.50) Prothromb Time International Ratio 1.1 (0.9-1.1) Activated Partial Thromboplast Time 27 SEC (23-33) Sodium Level 136 MMOL/L (136-145) Potassium Level 4.2 MMOL/L (3.5-5.1) Chloride Level 101 MMOL/L (98-107) Carbon Dioxide Level 28 MMOL/L (21-32) Anion Gap 7 mmol/L (5-15) Blood Urea Nitrogen 18 mg/dL (7-18) Creatinine 0.6 MG/DL (0.55-1.30) Estimat Glomerular Filtration Rate > 60 mL/min (>60) Glucose Level 151 MG/DL (74-106) H Calcium Level 10.1 MG/DL (8.5-10.1) Total Bilirubin 1.1 MG/DL (0.2-1.0) H Direct Bilirubin 0.3 MG/DL (0.0-0.3) Aspartate Amino Transf (AST/SGOT) 26 U/L (15-37) Alanine Aminotransferase (ALT/SGPT) 60 U/L (12-78) Alkaline Phosphatase 127 U/L (46-116) H Total Protein 8.7 G/DL (6.4-8.2) H Albumin 3.3 G/DL (3.4-5.0) L Globulin 5.4 g/dL Albumin/Globulin Ratio 0.6 (1.0-2.7) L Sanya Dodson MD Jul 25, 2018 17:02
--- NOTE | 2018-07-26 11:15 | Discharge Summary ---
Discharge Summary Discharge Summary _ DATE OF ADMISSION: 07/24/2018 DATE OF DISCHARGE: 07/25/2018 CONSULTANTS: Dr. Louis Sanchez BRIEF HOSPITAL COURSE: Patient is a 58-year-old -[place] male, who presented with complaints of malfunctioning jejunostomy tube. Patient is a resident of [facility] usp facility. According to staff at [facility], the patient's jejunostomy tube was nonfunctional. He was then sent to ED for further evaluation. He has medical history significant for diabetes mellitus, hypertension, seizure disorder, cerebrovascular disease and multi-infarct dementia. On evaluation at ED, blood work did not show any leukocytoses, hemoglobin was 12 , hematocrit 37. Electrolytes were stable. He was admitted for evaluation of J -tube. He was seen by infectious disease specialist. On evaluation there was mild erythema around the site, but no drainage. He was observed off antibiotics. He has history of major depressive disorder and dementia. He was seen by psychiatrist. He was stable at baseline with no behavioral issues. Seroquel was discontinued. He was given Zyprexa. He was seen by GI. On 07/25/2018, he underwent upper endoscopy with PEG tube placement by Dr. Louis Mcneil. Findings showed atrophic gastritis, and duodenitis. J-tube was inserted. He was placed on abdominal binder. He was eventually started on G-tube feeding. He was tolerating feeding with no residual. He was later on discharged back to custodial. FINAL DIAGNOSES: Malfunctioning J-tube, status post replacement Cerebrovascular disease Diabetes mellitus Seizure disorder Major depressive disorder Alzheimer's dementia History of duodenal ulcer Left BKA DISPOSITION: Patient was discharged back to [facility]. DISCHARGE MEDICATIONS: Refer to Discharge Medication List. I have been assigned to dictate discharge summary on this account, and I was not involved in the patient's management. Ruth Ann Kathleen NP Jul 26, 2018 11:15
== END 2018-07-25 16:27 | DRG 223 ==
LOC: EDUNIT# 10:45 → EDBD 10:45 → EMR 11:10 → 4E 12:50 → EDBEDREQ 13:36 → 4E 14:21
PROC: 0DPD4UZ Removal of Feeding Device from Lower Intestinal Tract, Percutaneous Endoscopic Approach (ICD-10-PCS; principal; 2018-07-25 11:01)
PROC: 0DH63UZ Insertion of Feeding Device into Stomach, Percutaneous Approach (ICD-10-PCS; 2018-07-25 11:01)
DX: K94.13 Enterostomy malfunction (principal); I95.9 Hypotension, unspecified; R13.10 Dysphagia, unspecified; G30.9 Alzheimer's disease, unspecified; F33.1 Major depressive disorder, recurrent, moderate; F01.50 Vascular dementia, unspecified severity, without behavioral disturbance, psychotic disturbance, mood disturbance, and anxiety; E10.9 Type 1 diabetes mellitus without complications; Y83.3 Surgical operation with formation of external stoma as the cause of abnormal reaction of the patient, or of later complication, without mention of misadventure at the time of the procedure; G40.909 Epilepsy, unspecified, not intractable, without status epilepticus; F02.80 Dementia in other diseases classified elsewhere, unspecified severity, without behavioral disturbance, psychotic disturbance, mood disturbance, and anxiety; Z89.512 Acquired absence of left leg below knee; I10 Essential (primary) hypertension; Z88.0 Allergy status to penicillin; Z88.8 Allergy status to other drugs, medicaments and biological substances; K29.40 Chronic atrophic gastritis without bleeding; K29.80 Duodenitis without bleeding
CPT/HCPCS: 36415; 80048; 80053; 82248; 82962; 85025; 85610; 85730; 87081; 94003; 94150; 99285; J1815; S0077

== ENCOUNTER 2018-11-03 19:49 | Inpatient (IN) | payer MEDICAID ==
[~2018-11-03] VITALS: Ht 177.8 cm; Wt 58.3 kg
[~2018-11-03 19:49] MED LIST changes: +ACETAMINOPHEN325 M1 JT; +ALUM-MAG HYDRO360 ML GT; +BISACODYL10 M1 RC; +HEPARIN SO5000 UNIT2 SUBQ; +LEVSIN-SL0.125 MG SL; +MORPHINE S10 MG/5 ML ORAL; +NORCO 5-325 TA1 EACH GT; +POLYETHYLENE GL17 GM GT; +SENNA8.6 M2 GT; +ZOFRAN ODT8 MG SL; +ZOFRAN4 M3 GT
--- NOTE | 2018-11-03 19:50 | NUR ---
ED Nurse Note: pt came for dislodged ferreira from [facility] via ambulance, noted serosanguineous drainage out of penile area. no pain at this time 16g coude ferreira cath inserted and 20ccNS inserted, 50cc urine returned yellow cloudy, pt tolerated well, will cont monitor. Addendum: 11/04/18 at 0302 by [email or web address] ED Nurse Note: pt came for dislodged ferreira from [facility] via ambulance, noted serosanguineous drainage out of penile area. no pain at this time. Per ERMD order, 16g coude ferreira cath inserted and 20ccNS inserted, 50cc urine returned yellow cloudy, pt tolerated well, will cont monitor. urine specimen obtained and sent per ERMD order.
--- NOTE | 2018-11-03 20:30 | NUR ---
ED Nurse Note: ERMD reminded regarding ferreira order.
[2018-11-03 20:50] VITALS: BP 106/67
[2018-11-03 21:50] VITALS: BP 117/71
--- NOTE | 2018-11-03 22:31 | Emergency Room Report ---
History of Present Illness General Chief Complaint: Male Urogenital Problems Source: Medical Record, EMS Present Illness HPI Patient pulled out ferreira. Some bleeding. Here to have ferreira replaced. No other history from patient - all from past encounters and medical records. H/O multiinfarct dementia H/O seizures on Keppra S/P BKA L leg J tube Admitted July 2018with these d/c diagnoses: Malfunctioning J-tube, status post replacement Cerebrovascular disease Diabetes mellitus Seizure disorder Major depressive disorder Alzheimer's dementia History of duodenal ulcer Left BKA Allergies: Coded Allergies: DIVALPROEX SODIUM (Verified Allergy, Unknown, 06/01/18) PENICILLINS (Unverified Allergy, Unknown, 06/01/18) Patient History Limited by: medical condition Past Medical History: see triage record, old chart reviewed Past Surgical History: other - G tube, BKA L Social History Narrative SNF Reviewed Nursing Documentation: PMH: Agreed; PSxH: Agreed Nursing Documentation-PMH Past Medical History: No History, Except For Hx Cardiac Problems: No - pt unable to provide hx coginitive impaired Hx Hypertension: Yes - pt cognitive impaired, unable to provide hx Hx Diabetes: Yes - pt cognitive impaired, unable to provide hx Hx Cancer: No - pt cognitive impaired, unable to provide hx Hx Gastrointestinal Problems: Yes - dysphagia,g-tube,constipation History Of Psychiatric Problem: Yes - anxiety,depression,psychosis Hx Neurological Problems: Yes - pt unable to provide hx coginitive impaired Hx Cerebrovascular Accident: Yes Hx Alzheimer's Disease: Yes - pt unable to provide hx coginitive impaired Hx Seizures: Yes - pt cognitive impaired, unable to provide hx Hx Aphasia: Yes - pt unable to provide hx coginitive impaired Review of Systems All Other Systems: limited Physical Exam Vital Signs Date Time Temp Pulse Resp B/P (MAP) Pulse Ox O2 Delivery O2 Flow Rate FiO2 11/03/18 19:36 97.7 109 19 99/62 96 Room Air Sp02 EP Interpretation: reviewed, normal General Appearance: no apparent distress, alert, thin, Chronically Ill Head: normocephalic Eyes: bilateral eye normal inspection, bilateral eye PERRL ENT: dry mucus membranes Neck: supple Respiratory: lungs clear, normal breath sounds Cardiovascular #1: regular rate, rhythm Cardiovascular #2: 2+ radial (L) Gastrointestinal: normal bowel sounds, non tender, other - G tube, scaphoid Genitourinary: other - penis with blood at meatus, no active bleeding Musculoskeletal: other - BKA L Neurologic: responsive, other - atrophy Psychiatric: depressed affect - but easily agitated Skin: warm/dry, other - sacral decubitus stage 1, heel decubitus with dressing R Medical Decision Making Medical: Other - dementia - multiinfarct Behavioral: Other Reaction to Intervention: Other - not respond to verbal commands Restraint Reassesment I, Jacek Hernandez MD, have personally evaluated this patient. Laboratory tests have been reviewed and addressed accordingly. The patient is deemed to present a danger to themselves and/or others. This is based on the exam, history and observed or reported behavior. Attempts for non-invasive measures have been considered and/or attempted, however, have been futile. It is in the best interest of the nursing staff, the patient, and others involved in this patient's care that non-behavioral restraints be applied. Patient evaluation reveals the following: striking out at nursing staff (had pulled out ferreira). Diagnostic Impression: Primary Impression: UTI (urinary tract infection) Qualified Codes: N39.0 - Urinary tract infection, site not specified Additional Impressions: Sepsis Qualified Codes: A41.9 - Sepsis, unspecified organism Transient hypotension Dehydration Dementia, multi-infarct Qualified Codes: F01.51 - Vascular dementia with behavioral disturbance Urethral trauma Qualified Codes: S37.30XA - Unspecified injury of urethra, initial encounter ER Course Patient presents after he pulled out ferreira. Ferreira will be replaced. Urinalysis is sent. Coudet inserted. Terbid urine Patient dry and appears septic. BC and labs ordered with fluid resuscitation and antibiotics. Pt combative with staff. Non-behavioral restraints ordered. EKG without injury. Chest x-ray no infiltrate. Labs with elevated white count. Lactic acid normal. CMP with elevated BUN normal creatinine. BP better. Pulse improved. Mentation unchanged. 0:10 (sepsis reevaluation) Admit med, Dr. Joyce (at request of Dr. Sanchez). Laboratory Tests Test 11/03/18 21:50 11/03/18 23:00 11/03/18 23:15 Urine Color Stacie Urine Appearance Very cloudy Urine pH 7 (4.5-8.0) Urine Specific [place] 1.015 (1.005-1.035) Urine Protein 3+ (NEGATIVE) H Urine Glucose (UA) Negative (NEGATIVE) Urine Ketones Negative (NEGATIVE) Urine Blood 4+ (NEGATIVE) H Urine Nitrite Negative (NEGATIVE) Urine Bilirubin Negative (NEGATIVE) Urine Ictotest Negative (NEGATIVE) Urine Urobilinogen Normal MG/DL (0.0-1.0) Urine Leukocyte Esterase 3+ (NEGATIVE) H Urine RBC 10-15 /HPF (0 - 0) H Urine WBC Tntc /HPF (0 - 0) H Urine Squamous Epithelial Cells Occasional /LPF Urine Bacteria Many /HPF (NONE) H White Blood Count 12.1 K/UL (4.8-10.8) H Red Blood Count 3.62 M/UL (4.70-6.10) L Hemoglobin 11.5 G/DL (14.2-18.0) L Hematocrit 33.4 % (42.0-52.0) L Mean Corpuscular Volume 92 FL (80-99) Mean Corpuscular Hemoglobin 31.7 PG (27.0-31.0) H Mean Corpuscular Hemoglobin Concent 34.4 G/DL (32.0-36.0) Red Cell Distribution Width 13.9 % (11.6-14.8) Platelet Count 268 K/UL (150-450) Mean Platelet Volume 7.9 FL (6.5-10.1) Neutrophils (%) (Auto) 79.0 % (45.0-75.0) H Lymphocytes (%) (Auto) 10.3 % (20.0-45.0) L Monocytes (%) (Auto) 10.1 % (1.0-10.0) H Eosinophils (%) (Auto) 0.2 % (0.0-3.0) Basophils (%) (Auto) 0.5 % (0.0-2.0) Prothrombin Time 11.2 SEC (9.30-11.50) Prothrombin Time INR 1.1 (0.9-1.1) PTT 28 SEC (23-33) Sodium Level 137 MMOL/L (136-145) Potassium Level 4.5 MMOL/L (3.5-5.1) Chloride Level 100 MMOL/L (98-107) Carbon Dioxide Level 31 MMOL/L (21-32) Anion Gap 7 mmol/L (5-15) Blood Urea Nitrogen 22 mg/dL (7-18) H Creatinine 0.7 MG/DL (0.55-1.30) Estimate Glomerular Filtration Rate > 60 mL/min (>60) Glucose Level 119 MG/DL (74-106) H Calcium Level 9.8 MG/DL (8.5-10.1) Magnesium Level 1.9 MG/DL (1.8-2.4) Total Bilirubin 0.5 MG/DL (0.2-1.0) Aspartate Amino Transferase (AST) 18 U/L (15-37) Alanine Aminotransferase (ALT) 16 U/L (12-78) Alkaline Phosphatase 113 U/L (46-116) Total Creatine Kinase 39 U/L (26-308) Troponin I 0.000 ng/mL (0.000-0.056) Pro-B-Type Natriuretic Peptide 142 pg/mL (0-125) H Total Protein 8.9 G/DL (6.4-8.2) H Albumin 3.3 G/DL (3.4-5.0) L Globulin 5.6 g/dL Albumin/Globulin Ratio 0.6 (1.0-2.7) L Lactic Acid Level 1.90 mmol/L (0.4-2.0) EKG Diagnostic Results Rate: normal Rhythm: NSR ST Segments: no acute changes Rhythm Strip Diag. Results EP Interpretation: yes Rhythm: no PVC's, no ectopy, other - ST Chest X-Ray Diagnostic Results Chest X-Ray Diagnostic Results : Chest X-Ray Ordered: Yes # of Views/Limited/Complete: 1 View Indication: Other EP Interpretation: Yes Interpretation: no consolidation, no effusion, no pneumothorax Impression: No acute disease Electronically Signed by: Jacek Hernandez MD Last Vital Signs Date Time Temp Pulse Resp B/P (MAP) Pulse Ox O2 Delivery O2 Flow Rate FiO2 11/03/18 19:36 97.7 109 19 99/62 96 Room Air Status: improved Disposition: ADMITTED INPATIENT Condition: Serious Referrals: NON PHYSICIAN (PCP) Jacek Hernandez MD Nov 03, 2018 22:31
[2018-11-03 22:42] LABS: APPEARANCE,URINE VERY CLOUDY; BILIRUBIN, URINE NEGATIVE (NEGATIVE); COLOR,URINE AMBER; GLUCOSE, URINE (UA) NEGATIVE (NEGATIVE); KETONES,URINE NEGATIVE (NEGATIVE); LEUKOCYTE ESTERASE ,URINE 3+ (NEGATIVE); NITRITE,URINE NEGATIVE (NEGATIVE); PH,URINE 7 (4.5-8.0); PROTEIN,URINE 3+ (NEGATIVE); UROBILINOGEN,URINE NORMAL MG/DL (0.0-1.0)
[2018-11-03] MEDS ORDERED: Cefepime HCl 2 GM in NS 110 ML IV SCH (22:45)
[2018-11-03] MEDS ORDERED: Sodium Chloride 1,400 ML IVLG ONE (22:45)
[2018-11-03] MEDS ORDERED: Vancomycin 1 GM in NS 275 ML IV ONE (22:45)
[2018-11-03 22:50] VITALS: BP 109/67
--- NOTE | 2018-11-03 22:50 | NUR ---
ED Nurse Note: Pt being combative and resist to care during iv insertion, no injury occured, ERMD notified, verbal order obtained for soft restraints. soft restraints applied, CMS intact, cap refill <3sec, skin intact, will cont monitor.
[2018-11-03 23:43] LABS: BASOPHILS % (AUTO) 0.5 % (0.0-2.0); EOSINOPHILS % (AUTO) 0.2 % (0.0-3.0); HEMATOCRIT 33.4 % (42.0-52.0); HEMOGLOBIN 11.5 G/DL (14.2-18.0); LYMPHOCYTES % (AUTO) 10.3 % (20.0-45.0); MEAN CORPUSCULAR VOLUME 92 FL (80-99); MONOCYTES % (AUTO) 10.1 % (1.0-10.0); PLATELET COUNT 268 K/UL (150-450); RED BLOOD COUNT 3.62 M/UL (4.70-6.10); RED CELL DISTRIBUTION WIDTH 13.9 % (11.6-14.8); WHITE BLOOD COUNT 12.1 K/UL (4.8-10.8)
[2018-11-03] MEDS ORDERED: Ondansetron ODT 8mg tab SL PRN (23:45)
[2018-11-03 23:50] LABS: INR 1.1 (0.9-1.1)
--- NOTE | 2018-11-03 23:50 | NUR ---
ED Nurse Note: report given to JULIET galeana and endorsed care.
[2018-11-03 23:56] LABS: ANION GAP 7 mmol/L (5-15); BLOOD UREA NITROGEN 22 mg/dL (7-18); CALCIUM 9.8 MG/DL (8.5-10.1); CARBON DIOXIDE 31 MMOL/L (21-32); CHLORIDE 100 MMOL/L (98-107); CREATININE 0.7 MG/DL (0.55-1.30); POTASSIUM 4.5 MMOL/L (3.5-5.1); SODIUM 137 MMOL/L (136-145)
[2018-11-04] VITALS (9 sets, daily range): BP systolic 116–159; BP diastolic 68–86
[2018-11-04 00:01] LABS: ALANINE AMINOTRANSFERASE 16 U/L (12-78); ALBUMIN 3.3 G/DL (3.4-5.0); ALBUMIN/GLOBULIN RATIO 0.6 (1.0-2.7); ALKALINE PHOSPHATASE 113 U/L (46-116); ASPARTATE AMINO TRANSFERASE 18 U/L (15-37); BILIRUBIN,TOTAL 0.5 MG/DL (0.2-1.0); CREATINE KINASE 39 U/L (26-308)
--- NOTE | 2018-11-04 00:10 | NUR ---
ED Nurse Note: ERMD reminded regarding nonbehavioral restraint order.
--- NOTE | 2018-11-04 00:23 | Diagnostic Imaging Report ---
EXAM: XR Chest, 1 View CLINICAL HISTORY: ALOC TECHNIQUE: Frontal view of the chest. COMPARISON: Chest x-ray dated 06/19/2018 FINDINGS: Lungs: Unremarkable. No consolidation. Pleural space: Unremarkable. No pneumothorax. Heart: Unremarkable. No cardiomegaly. Mediastinum: Unremarkable. Bones/joints: Unremarkable. IMPRESSION: Normal chest x-ray.
[2018-11-04] MEDS ORDERED: Vancomycin 1 GM in D5W 275 ML IV SCH (00:30)
--- NOTE | 2018-11-04 01:00 | NUR ---
Note undone in EDM - 11/04/18 at 0611 by [email or web address] ER Nurse Note: Non behavioral restraints DC per MD orders at 0050. Pt not combative, coopeartive, calm. VSS. Soft restraints removed, skin intact, cap refill <3 secs, warm to touch. Will continue to montior.
[2018-11-04] MEDS ORDERED: Vancomycin 1gm vial IVPB ONE (02:37)
--- NOTE | 2018-11-04 04:53 | NUR ---
ER Nurse Note: Pt calm, asleep, VSS, no signs of distress. Pt has IV right AC, infusing NS; tolerating well. Pt has no fever. Vargas cath inserted, no kinks; urine clear and yellow. All orders completed per ERMD orders. All safey measures met. Awaitng bed and room; will continue to montior.
--- NOTE | 2018-11-04 06:11 | NUR ---
ER Nurse Note: Non behavioral restraints DC per MD orders at 0558. Pt not combative, coopeartive, calm, asleep. VSS. Soft restraints removed, skin intact, cap refill <3 secs, warm to touch. All safety measures met; no falls. Will continue to montior. Awaiting bed and hospital bed.
--- NOTE | 2018-11-04 07:09 | NUR ---
ER Nurse Note: Hand off report given to JULIET Garcia.
[2018-11-04] MEDS ORDERED: Miralax 17gm pkt ORAL PRN (07:25)
[2018-11-04] MEDS ORDERED: Albuterol/Ipratropium 3ml neb HHN PRN (07:25)
[2018-11-04] MEDS ORDERED: Morphine Sulfate 2mg/ml Inj(IV/IM USE ONLY) IVP PRN (07:26)
--- NOTE | 2018-11-04 07:40 | NUR ---
ED Nurse Note: Received patient in bed sleeping. pt woke up with nurse walked in to the room. pt aao x1 and fatigued. Lt below knee amputated with clean and intact surgical site skin. [facility] no pressure ulcer noted on Rt heel. VSS with room air. Addendum: 11/04/18 at 0749 by [email or web address] ED Nurse Note: Received patient in bed sleeping. pt woke up with nurse walked in to the room. pt aao x1 and fatigued. Lt below knee amputated with clean and intact surgical site skin. pt has pressure off boot on Rt foot from [facility] [place] [facility] but no pressure ulcer noted on Rt heel. G-tube in abdomen, F/C 16Fr patent and intact. VSS with room air.
--- NOTE | 2018-11-04 08:00 | NUR ---
ED Nurse Note: Breakfast has been served and offered but pt refused x3 and went back to sleep.
[2018-11-04] MEDS ORDERED: ATIVAN1 MG JT (08:49)
--- NOTE | 2018-11-04 09:01 | NUR ---
ED Nurse Note: Nurse tried to feed pt breakfast but pt refused again x3 as stating "I said I don't want to eat!" Waiting for the room in [place] to be available. pt is in hospital bed.
--- NOTE | 2018-11-04 09:43 | NUR ---
ED Nurse Note: Pt still in ER due to bed not available in [place]. Called Pharmacy to verify the 0900 medications. they will verify but was told IV ATB should be started once pt is transferred to [place]. will start other medications when they are verified.
[2018-11-04] MEDS ORDERED: Miralax 17gm pkt GT PRN (09:45)
[2018-11-04] MEDS ORDERED: Acetaminophen 650mg/20.3ml GT PRN (09:45)
[2018-11-04] MEDS: Heparin 5000 units/ml inj SUBQ SCH ×2 (09:50→20:54)
[2018-11-04] MEDS: levETIRAcetam 500mg/5ml Liquid GT SCH ×2 (10:04→20:52)
--- NOTE | 2018-11-04 12:57 | NUR ---
ED Nurse Note: Report given to JULIET Rodriguez
--- NOTE | 2018-11-04 13:03 | NUR ---
ED Nurse Note: Pt left department with 2 lead technologist in cytogenetics in stable condition with beloings with pt.
--- NOTE | 2018-11-04 15:14 | Consultation ---
History of Present Illness General Chief Complaint: Male Urogenital Problems Present Illness Allergies: Coded Allergies: DIVALPROEX SODIUM (Verified Allergy, Unknown, 06/01/18) PENICILLINS (Unverified Allergy, Unknown, 06/01/18) Medication History Scheduled Albuterol Sulfate (Albuterol Sulfate), 0.63 MG HHN Q4HR, (Reported) Bisacodyl (Bisacodyl), 10 MG RC PRN, (Reported) Ceftriaxone Sodium (Ceftriaxone), 1 GM IV DAILY Escitalopram Oxalate* (Lexapro*), 10 MG GT DAILY, (Reported) Heparin Sod (Porcine) (Heparin Sodium*), 5,000 UNITS SUBQ EVERY 12 HOURS, ( Reported) Hyoscyamine Sulfate* (Levsin-Sl*), 0.125 MG SL EVERY 4 HOURS, (Reported) Levetiracetam (Keppra), 500 MG NG Q12HR Levetiracetam (Keppra), 1,000 MG GT Q12HR Lorazepam* (Ativan*), 1 MG JT Q4HR, (Reported) Mag Hydrox/Al Hydrox/Simeth (Alum-Mag Hydroxide-Simeth Liq), 30 ML GT EVERY 6 HOURS, (Reported) Midodrine (Midodrine HCl), 10 MG ORAL Q8HR Midodrine (Midodrine HCl), 15 MG GT THREE TIMES A DAY, (Reported) Olanzapine* (Zyprexa*), 10 MG GT DAILY, (Reported) Sennosides (Senna), 8.6 MG GT DAILY, (Reported) Scheduled PRN Acetaminophen* (Acetaminophen 325MG Tablet*), 650 MG JT Q4H PRN for Mild Pain/ Temp > 100.5, (Reported) Hydrocodone Bit/Acetaminophen 5-325* ([place] 5-325*), 1 TAB GT Q4H PRN for For Pain, (Reported) Morphine 10mg/5ml Oral Soln* (Morphine 10mg/5ml Oral Soln*), 10 MG ORAL EVERY 4 HOURS PRN for For Pain, (Reported) Ondansetron Odt* (Zofran Odt*), 4 MG SL Q4HR PRN for Nausea & Vomiting, ( Reported) Ondansetron* (Zofran*), 4 MG GT Q6H PRN for Nausea & Vomiting, (Reported) Polyethylene Glycol 3350* (Polyethylene Glycol 3350*), 17 GM GT BEDTIME PRN for Constipation, (Reported) Quetiapine Fumarate* (Seroquel*), 25 MG ORAL Q6H PRN Miscellaneous Medications Ferrous Fumarate (Ferrous Fumarate), 324 MG PO, (Reported) Insulin Aspart* (Novolog*), 0 SUBQ, (Reported) Patient History Healthcare decision maker MARY JANE PRYOR Resuscitation status Advanced Directive on File Physical Exam Last 24 Hour Vital Signs Date Time Temp Pulse Resp B/P (MAP) Pulse Ox O2 Delivery O2 Flow Rate FiO2 11/04/18 14:14 97.7 108 20 159/86 (110) 98 11/04/18 13:01 98.2 81 18 121/68 100 Room Air 11/04/18 13:01 98.0 83 12 123/72 100 11/04/18 11:18 98.2 81 18 121/68 (85) 100 11/04/18 11:11 Room Air 11/04/18 11:02 Room Air 11/04/18 07:34 98.2 75 12 121/68 100 Room Air 11/04/18 07:34 79 13 Room Air 11/04/18 06:22 Room Air 11/04/18 06:08 98.1 80 13 118/76 99 Room Air 11/04/18 03:08 98.1 80 15 118/76 100 Room Air 11/04/18 00:50 98.0 80 14 116/74 100 Room Air 11/03/18 23:00 90 18 Room Air 11/03/18 22:50 98.1 90 18 109/67 96 Room Air 11/03/18 21:50 84 16 117/71 100 Room Air 11/03/18 20:50 98.1 95 18 106/67 96 Room Air 11/03/18 19:36 97.7 109 19 99/62 96 Room Air Intake and Output 11/03/18 11/04/18 18:59 06:59 Intake Total 2935 ml Output Total 1000 ml Balance 1935 ml IV Total 2935 ml Output Urine Total 1000 ml # Bowel Movements 1 Laboratory Tests Test 11/03/18 21:50 11/03/18 23:00 11/03/18 23:15 Urine Color Stacie Urine Appearance Very cloudy Urine pH 7 (4.5-8.0) Urine Specific [place] 1.015 (1.005-1.035) Urine Protein 3+ (NEGATIVE) H Urine Glucose (UA) Negative (NEGATIVE) Urine Ketones Negative (NEGATIVE) Urine Blood 4+ (NEGATIVE) H Urine Nitrite Negative (NEGATIVE) Urine Bilirubin Negative (NEGATIVE) Urine Ictotest Negative (NEGATIVE) Urine Urobilinogen Normal MG/DL (0.0-1.0) Urine Leukocyte Esterase 3+ (NEGATIVE) H Urine RBC 10-15 /HPF (0 - 0) H Urine WBC Tntc /HPF (0 - 0) H Urine Squamous Epithelial Cells Occasional /LPF Urine Bacteria Many /HPF (NONE) H White Blood Count 12.1 K/UL (4.8-10.8) H Red Blood Count 3.62 M/UL (4.70-6.10) L Hemoglobin 11.5 G/DL (14.2-18.0) L Hematocrit 33.4 % (42.0-52.0) L Mean Corpuscular Volume 92 FL (80-99) Mean Corpuscular Hemoglobin 31.7 PG (27.0-31.0) H Mean Corpuscular Hemoglobin Concent 34.4 G/DL (32.0-36.0) Red Cell Distribution Width 13.9 % (11.6-14.8) Platelet Count 268 K/UL (150-450) Mean Platelet Volume 7.9 FL (6.5-10.1) Neutrophils (%) (Auto) 79.0 % (45.0-75.0) H Lymphocytes (%) (Auto) 10.3 % (20.0-45.0) L Monocytes (%) (Auto) 10.1 % (1.0-10.0) H Eosinophils (%) (Auto) 0.2 % (0.0-3.0) Basophils (%) (Auto) 0.5 % (0.0-2.0) Prothrombin Time 11.2 SEC (9.30-11.50) Prothromb Time International Ratio 1.1 (0.9-1.1) Activated Partial Thromboplast Time 28 SEC (23-33) Sodium Level 137 MMOL/L (136-145) Potassium Level 4.5 MMOL/L (3.5-5.1) Chloride Level 100 MMOL/L (98-107) Carbon Dioxide Level 31 MMOL/L (21-32) Anion Gap 7 mmol/L (5-15) Blood Urea Nitrogen 22 mg/dL (7-18) H Creatinine 0.7 MG/DL (0.55-1.30) Estimat Glomerular Filtration Rate > 60 mL/min (>60) Glucose Level 119 MG/DL (74-106) H Calcium Level 9.8 MG/DL (8.5-10.1) Magnesium Level 1.9 MG/DL (1.8-2.4) Total Bilirubin 0.5 MG/DL (0.2-1.0) Aspartate Amino Transf (AST/SGOT) 18 U/L (15-37) Alanine Aminotransferase (ALT/SGPT) 16 U/L (12-78) Alkaline Phosphatase 113 U/L (46-116) Total Creatine Kinase 39 U/L (26-308) Troponin I 0.000 ng/mL (0.000-0.056) Pro-B-Type Natriuretic Peptide 142 pg/mL (0-125) H Total Protein 8.9 G/DL (6.4-8.2) H Albumin 3.3 G/DL (3.4-5.0) L Globulin 5.6 g/dL Albumin/Globulin Ratio 0.6 (1.0-2.7) L Lactic Acid Level 1.90 mmol/L (0.4-2.0) Height (Feet): 5 Height (Inches): 10.00 Weight (Pounds): 100 Medications Current Medications Medications (Trade) Dose Ordered Sig/Cristofer Route PRN Reason Start Time Stop Time Status Last Admin Dose Admin Acetaminophen (Tylenol) 650 mg Q4H PRN GT fever 11/04/18 09:45 12/04/18 07:24 Albuterol/ Ipratropium (Albuterol/ Ipratropium) 3 ml Q4H PRN HHN Shortness of Breath 11/04/18 07:25 11/09/18 07:24 Cefepime HCl 2 gm/ Dextrose 110 ml @ 220 mls/hr Q12H IV 11/04/18 14:00 11/11/18 13:59 Escitalopram Oxalate (Lexapro) 10 mg DAILY GT 11/04/18 09:00 12/04/18 08:59 11/04/18 09:46 Heparin Sodium (Porcine) (Heparin 5000 units/ml) 5,000 units EVERY 12 HOURS SUBQ 11/04/18 09:00 12/04/18 08:59 11/04/18 09:50 Levetiracetam (Keppra) 1,000 mg Q12HR GT 11/04/18 09:00 12/04/18 08:59 11/04/18 10:04 Morphine Sulfate (Morphine Sulfate) 2 mg Q4H PRN IVP Moderate Pain (Pain Scale 4-6) 11/04/18 07:26 11/11/18 07:25 Ondansetron HCl (Zofran) 4 mg Q6H PRN IVP Nausea & Vomiting 11/04/18 07:26 12/04/18 07:25 Phenazopyridine HCl (Pyridium) 100 mg DAILY PRN ORAL dysuria 11/04/18 09:44 12/04/18 09:43 Polyethylene Glycol (Miralax) 17 gm DAILYPRN PRN GT Constipation 11/04/18 09:45 12/04/18 07:24 Quetiapine Fumarate (SEROquel) 25 mg Q6H PRN GT agitation 11/04/18 09:45 12/04/18 07:23 Temazepam (Restoril) 15 mg HSPRN PRN GT Insomnia 11/04/18 21:00 11/11/18 20:59 Vancomycin HCl (Vanco rx to dose) 1 ea DAILY PRN MISC PER RX 11/04/18 13:00 12/04/18 12:59 Vancomycin HCl 500 mg/Dextrose 275 ml @ 275 mls/hr Q12H IVPB 11/04/18 15:30 11/09/18 15:29 Dony Sanchez MD Nov 04, 2018 15:14
[2018-11-04] MEDS: Cefepime HCl 2 GM in D5W 110 ML IV SCH (15:38)
--- NOTE | 2018-11-04 16:15 | NUR ---
CHARGE NURSE NOTE: was called twice for admission orders, no respond yet.
[2018-11-04] MEDS: Vancomycin 500 MG in D5W 275 ML IVPB SCH (16:43)
--- NOTE | 2018-11-04 18:40 | History & Physical ---
History and Physical History & Physicial Dictated for Int Med - Dr Joyce No. [id number] Manjinder Marley MD Nov 04, 2018 18:40
--- NOTE | 2018-11-04 19:30 | History and Physical Report ---
DATE OF ADMISSION: 11/04/2018 CHIEF COMPLAINT: The patient is a 58-year-old white male, presents with chief complaint of malfunctioning gastrostomy tube. HISTORY OF PRESENT ILLNESS: The patient is a resident of [facility]. The patient was admitted in July 2018 for J-tube malfunction. The J-tube was replaced with the G-tube by Dr. Louis Mcneil. According to staff at [facility], the patient pulled out his Vargas yesterday. The patient had some hematuria. The patient presented to [facility] for Vargas replacement. PAST MEDICAL HISTORY: Significant for: 1. Type 1 diabetes. 2. Hypertension. 3. History of seizure disorder. 4. Cerebrovascular disease, status post cerebrovascular accident. 5. Multiinfarct dementia. PAST SURGICAL HISTORY: Significant for: 1. Duodenal to transverse colon fistulotomy in May 2018. 2. Laparoscopic placement of jejunostomy tube. 3. Removal of jejunostomy tube. 4. PEG placement in July 2018 as above. 5. Left [id number] amputation. CURRENT MEDICATIONS: 1. Ativan 1 mg per G-tube q.4 h. p.r.n. 2. Keppra 1000 mg per G-tube twice daily. 3. Levsin 0.125 mg per G-tube q.4 h. p.r.n. 4. Lexapro 10 mg per G-tube daily. 5. Midodrine 50 mg per G-tube q.8 h. p.r.n. 6. Morphine sulfate 20 mg per G-tube q.4 h. p.r.n. 7. Thornton 5/325 mg one to two tablets p.o. q.4 h. p.r.n. 8. Zofran 4 mg per G-tube q.6 h. p.r.n. 9. Zyprexa 20 mg per G-tube nightly. ALLERGIES: To Depakote, sodium, and penicillin. SOCIAL HISTORY: The patient is a resident of [facility]. The patient denies tobacco or alcohol use. REVIEW OF SYSTEMS: Unable to assess secondary to the patient's mental status. PHYSICAL EXAMINATION: VITAL SIGNS: Temperature 98.2 degrees, respirations 13, pulse 79, blood pressure 110/60. GENERAL: The patient is a well-developed, well-nourished, nonverbal white male, in no apparent distress. HEENT: Eyes: Pupils equal and responsive to light and accommodation. Extraocular movements are intact. NECK: Supple without lymphadenopathy. CHEST: Lungs are clear to auscultation bilaterally without wheezes or rales. CARDIOVASCULAR: Regular rate. S1 and S2 are normal without murmurs, rubs, or gallops. ABDOMEN: Soft, nontender, and nondistended. Positive bowel sounds. No evidence of hepatosplenomegaly. Currently, no rebound or guarding noted. RECTAL: Refused. GENITAL: Refused. EXTREMITIES: Negative for clubbing, cyanosis, or edema. NEUROLOGIC: Cranial nerves II through XII are grossly intact without focal deficits. LABORATORY AND DIAGNOSTIC DATA: Laboratory studies, WBC 12.1, hemoglobin 11.5, hematocrit 33.4, and platelets 368,000. Sodium 137, potassium 4.5, chloride 100, CO2 31, BUN 22, creatinine 0.7, and glucose 119. Urinalysis showed 3+ protein, 4+ blood, 3+ leukocyte esterase with 10 to 15 rbc's, and wbc's too numerous to count. ASSESSMENT: This is a 58-year-old white male with: 1. Hematuria. 2. Urinary tract infection. 3. Vargas malfunction. 4. Diabetes type 2. 5. Dysphagia. 6. Hypertension. 7. Seizure disorder. 8. Cerebrovascular disease. 9. Multiinfarct dementia. TREATMENT: 1. Urinary tract infection/hematuria. Urine culture is pending. The patient has been started empirically on vancomycin and cefepime. Await urine culture results. 2. Diabetes type 1. NovoLog sliding scale has been instituted. 3. Dysphagia. Continue tube feeds with Glucerna 1.2 at 45 mL/hour. 4. Hypertension. 5. Seizure disorder. Continue Keppra as above. 6. Cerebrovascular disease. 7. Multiinfarct dementia. Manjinder Marley M.D. DR: Jodie JOB#: [id number] CC:
--- NOTE | 2018-11-04 19:30 | NUR ---
HAND-OFF: Report given to JULIET Salinas.
--- NOTE | 2018-11-04 19:43 | NUR ---
NURSE NOTES: Received patient awake in bed, pt denies pain, refused IV site dressing reinforcement, IV dressing otherwise dry and intact. Bed on lowest position, 2 side rials up, call light and belongings within reach. G tube noted, currently at 20cc/hr, will advance up to 45cc as tolerated. Sisi noted, urine yellow and clear. Addendum: 11/04/18 at 8987 by Cali Salinas RN harshad
[2018-11-05] MEDS: Cefepime HCl 2 GM in D5W 110 ML IV SCH ×2 (01:41→16:31)
[2018-11-05] MEDS: Vancomycin 500 MG in D5W 275 ML IVPB SCH (03:30)
--- NOTE | 2018-11-05 04:26 | NUR ---
NURSE NOTES: Patient refused 2000, 0000, 0400 vital signs even after numerous attempts. Patient refused to be connected to his IV as well so abx unable to be administered. Pt keeps saying "no no no" and pulls away when MARKETING SUPPORT ASSISTANT and RN attempt to get close to him. Pt will also kick his leg in an attempt to keep MARKETING SUPPORT ASSISTANT and RN away from him. Advanced feeding to 40cc/hr.
--- NOTE | 2018-11-05 07:25 | NUR ---
HAND-OFF: Report given to JULIET Espinoza. Addendum: 11/05/18 at 9627 by Cali Salinas RN Report given to JULIET Rodriguez.
[2018-11-05] MEDS: levETIRAcetam 500mg/5ml Liquid GT SCH ×2 (09:00→21:13)
[2018-11-05] MEDS: Heparin 5000 units/ml inj SUBQ SCH ×2 (09:00→21:00)
--- NOTE | 2018-11-05 11:19 | Consultation ---
History of Present Illness General Date patient seen: Nov 05, 2018 Time patient seen: 10:59 Chief Complaint: Male Urogenital Problems Present Illness HPI 58 y/o M wtih hx of vascular dementia, Dm, duodenal ulcer, CVA, MDD, seizures disorder, s/p L leg BKA, dysphagia s/p J-tube (w/ hx of malfunction and replacement on 07/2018), SNF resident presents to ED on 11/03 with hematuria after pulling out ferreira catheter day prior to admission. WBC increased pyuria Allergies: Coded Allergies: DIVALPROEX SODIUM (Verified Allergy, Unknown, 06/01/18) PENICILLINS (Unverified Allergy, Unknown, 06/01/18) Medication History Scheduled Albuterol Sulfate (Albuterol Sulfate), 0.63 MG HHN Q4HR, (Reported) Bisacodyl (Bisacodyl), 10 MG RC PRN, (Reported) Ceftriaxone Sodium (Ceftriaxone), 1 GM IV DAILY Escitalopram Oxalate* (Lexapro*), 10 MG GT DAILY, (Reported) Heparin Sod (Porcine) (Heparin Sodium*), 5,000 UNITS SUBQ EVERY 12 HOURS, ( Reported) Hyoscyamine Sulfate* (Levsin-Sl*), 0.125 MG SL EVERY 4 HOURS, (Reported) Levetiracetam (Keppra), 500 MG NG Q12HR Levetiracetam (Keppra), 1,000 MG GT Q12HR Lorazepam* (Ativan*), 1 MG JT Q4HR, (Reported) Mag Hydrox/Al Hydrox/Simeth (Alum-Mag Hydroxide-Simeth Liq), 30 ML GT EVERY 6 HOURS, (Reported) Midodrine (Midodrine HCl), 10 MG ORAL Q8HR Midodrine (Midodrine HCl), 15 MG GT THREE TIMES A DAY, (Reported) Olanzapine* (Zyprexa*), 10 MG GT DAILY, (Reported) Sennosides (Senna), 8.6 MG GT DAILY, (Reported) Scheduled PRN Acetaminophen* (Acetaminophen 325MG Tablet*), 650 MG JT Q4H PRN for Mild Pain/ Temp > 100.5, (Reported) Hydrocodone Bit/Acetaminophen 5-325* ([place] 5-325*), 1 TAB GT Q4H PRN for For Pain, (Reported) Morphine 10mg/5ml Oral Soln* (Morphine 10mg/5ml Oral Soln*), 10 MG ORAL EVERY 4 HOURS PRN for For Pain, (Reported) Ondansetron Odt* (Zofran Odt*), 4 MG SL Q4HR PRN for Nausea & Vomiting, ( Reported) Ondansetron* (Zofran*), 4 MG GT Q6H PRN for Nausea & Vomiting, (Reported) Polyethylene Glycol 3350* (Polyethylene Glycol 3350*), 17 GM GT BEDTIME PRN for Constipation, (Reported) Quetiapine Fumarate* (Seroquel*), 25 MG ORAL Q6H PRN Miscellaneous Medications Ferrous Fumarate (Ferrous Fumarate), 324 MG PO, (Reported) Insulin Aspart* (Novolog*), 0 SUBQ, (Reported) Patient History Healthcare decision maker MARY JANE PRYOR Resuscitation status Full Code Advanced Directive on File Patient History Narrative Pmhx: as above Shx: The patient is a resident of [facility]. The patient denies tobacco or alcohol use. Fhx: non contributory Review of Systems All Other Systems: negative except mentioned in HPI Physical Exam Physical Exam Narrative GENERAL: The patient is a well-developed, well-nourished, nonverbal white male, in no apparent distress. HEENT: Eyes: Pupils equal and responsive to light and accommodation. Extraocular movements are intact. NECK: Supple without lymphadenopathy. CHEST: Lungs are clear to auscultation bilaterally without wheezes or rales. CARDIOVASCULAR: Regular rate. S1 and S2 are normal without murmurs, rubs, or gallops. ABDOMEN: Soft, nontender, and nondistended. Positive bowel sounds. No evidence of hepatosplenomegaly. Currently, no rebound or guarding noted. RECTAL: Refused. GENITAL: Refused. EXTREMITIES: Negative for clubbing, cyanosis, or edema. NEUROLOGIC: Cranial nerves II through XII are grossly intact without focal deficits. Last 24 Hour Vital Signs Date Time Temp Pulse Resp B/P (MAP) Pulse Ox O2 Delivery O2 Flow Rate FiO2 11/05/18 09:00 Room Air 11/04/18 21:00 Room Air 11/04/18 18:00 97.8 101 19 149/83 (105) 98 11/04/18 16:00 98.2 87 20 131/83 (99) 98 11/04/18 14:14 97.7 108 20 159/86 (110) 98 11/04/18 13:01 98.2 81 18 121/68 100 Room Air 11/04/18 13:01 98.0 83 12 123/72 100 11/04/18 11:18 98.2 81 18 121/68 (85) 100 11/04/18 11:11 Room Air 11/04/18 11:02 Room Air Intake and Output 11/04/18 11/05/18 19:00 07:00 Intake Total 550 ml 420 ml Output Total 600 ml 1601 ml Balance -50 ml -1181 ml Intake Oral 0 ml Free Water 500 ml 50 ml IV Total 50 ml Tube Feeding 370 ml Output Urine Total 600 ml 1600 ml Stool Total 1 ml # Bowel Movements 1 1 Height (Feet): 5 Height (Inches): 10.00 Weight (Pounds): 100 Medications Current Medications Medications (Trade) Dose Ordered Sig/Cristofer Route PRN Reason Start Time Stop Time Status Last Admin Dose Admin Acetaminophen (Tylenol) 650 mg Q4H PRN GT fever 11/04/18 09:45 12/04/18 07:24 Albuterol/ Ipratropium (Albuterol/ Ipratropium) 3 ml Q4H PRN HHN Shortness of Breath 11/04/18 07:25 11/09/18 07:24 Cefepime HCl 2 gm/ Dextrose 110 ml @ 220 mls/hr Q12H IV 11/04/18 14:00 11/11/18 13:59 11/05/18 01:41 Escitalopram Oxalate (Lexapro) 10 mg DAILY GT 11/04/18 09:00 12/04/18 08:59 11/04/18 09:46 Heparin Sodium (Porcine) (Heparin 5000 units/ml) 5,000 units EVERY 12 HOURS SUBQ 11/04/18 09:00 12/04/18 08:59 11/04/18 20:54 Levetiracetam (Keppra) 1,000 mg Q12HR GT 11/04/18 09:00 12/04/18 08:59 11/04/18 20:52 Morphine Sulfate (Morphine Sulfate) 2 mg Q4H PRN IVP Moderate Pain (Pain Scale 4-6) 11/04/18 07:26 11/11/18 07:25 Ondansetron HCl (Zofran) 4 mg Q6H PRN IVP Nausea & Vomiting 11/04/18 07:26 12/04/18 07:25 Phenazopyridine HCl (Pyridium) 100 mg DAILY PRN ORAL dysuria 11/04/18 09:44 12/04/18 09:43 Polyethylene Glycol (Miralax) 17 gm DAILYPRN PRN GT Constipation 11/04/18 09:45 12/04/18 07:24 Quetiapine Fumarate (SEROquel) 25 mg Q6H PRN GT agitation 11/04/18 09:45 12/04/18 07:23 Temazepam (Restoril) 15 mg HSPRN PRN GT Insomnia 11/04/18 21:00 11/11/18 20:59 Vancomycin HCl (Vanco rx to dose) 1 ea DAILY PRN MISC PER RX 11/04/18 13:00 12/04/18 12:59 Vancomycin HCl 500 mg/Dextrose 275 ml @ 275 mls/hr Q12H IVPB 11/04/18 15:30 11/09/18 15:29 11/04/18 16:43 Assessment/Plan Assessment/Plan Abx: IV Vancomycin 11/03- Cefepime 11/03- Levaquin x1 11/03 Assessment: Sepsis-likely 2ry to UTI -u/a wbc tnct, nit neg, leuk +3; ucx p -CXR: Normal chest x-ray. Afebrile Leukocytosis hematuria vascular dementia Dm duodenal ulcer CVA MDD seizures disorder s/p L leg BKA dysphagia s/p J-tube (w/ hx of malfunction and replacement on 07/2018) SNF resident Plan: - D/c empiric IV Vancomycin #3 and continue empiric CEfepime #3 pending urine culture -f/u cx -Monitor CBC/CMP, temperatures -J tube care -aspiration precautions Thank you for this consultation. Will continue to follow along with you. Discussed with Ruthy Oneill M.D. Nov 05, 2018 11:19
--- NOTE | 2018-11-05 11:25 | Consultation ---
History of Present Illness General Chief Complaint: Male Urogenital Problems Present Illness HPI 58-year-old white male, with hx of schizophrenia who presents with chief complaint of malfunctioning gastrostomy tube. the pt is more confused than baseline. The pt was calm, however he was weak and has memory impairment. the pt is not suicidal or homicidal/ Allergies: Coded Allergies: DIVALPROEX SODIUM (Verified Allergy, Unknown, 06/01/18) PENICILLINS (Unverified Allergy, Unknown, 06/01/18) Medication History Scheduled Albuterol Sulfate (Albuterol Sulfate), 0.63 MG HHN Q4HR, (Reported) Bisacodyl (Bisacodyl), 10 MG RC PRN, (Reported) Ceftriaxone Sodium (Ceftriaxone), 1 GM IV DAILY Escitalopram Oxalate* (Lexapro*), 10 MG GT DAILY, (Reported) Heparin Sod (Porcine) (Heparin Sodium*), 5,000 UNITS SUBQ EVERY 12 HOURS, ( Reported) Hyoscyamine Sulfate* (Levsin-Sl*), 0.125 MG SL EVERY 4 HOURS, (Reported) Levetiracetam (Keppra), 500 MG NG Q12HR Levetiracetam (Keppra), 1,000 MG GT Q12HR Lorazepam* (Ativan*), 1 MG JT Q4HR, (Reported) Mag Hydrox/Al Hydrox/Simeth (Alum-Mag Hydroxide-Simeth Liq), 30 ML GT EVERY 6 HOURS, (Reported) Midodrine (Midodrine HCl), 10 MG ORAL Q8HR Midodrine (Midodrine HCl), 15 MG GT THREE TIMES A DAY, (Reported) Olanzapine* (Zyprexa*), 10 MG GT DAILY, (Reported) Sennosides (Senna), 8.6 MG GT DAILY, (Reported) Scheduled PRN Acetaminophen* (Acetaminophen 325MG Tablet*), 650 MG JT Q4H PRN for Mild Pain/ Temp > 100.5, (Reported) Hydrocodone Bit/Acetaminophen 5-325* ([place] 5-325*), 1 TAB GT Q4H PRN for For Pain, (Reported) Morphine 10mg/5ml Oral Soln* (Morphine 10mg/5ml Oral Soln*), 10 MG ORAL EVERY 4 HOURS PRN for For Pain, (Reported) Ondansetron Odt* (Zofran Odt*), 4 MG SL Q4HR PRN for Nausea & Vomiting, ( Reported) Ondansetron* (Zofran*), 4 MG GT Q6H PRN for Nausea & Vomiting, (Reported) Polyethylene Glycol 3350* (Polyethylene Glycol 3350*), 17 GM GT BEDTIME PRN for Constipation, (Reported) Quetiapine Fumarate* (Seroquel*), 25 MG ORAL Q6H PRN Miscellaneous Medications Ferrous Fumarate (Ferrous Fumarate), 324 MG PO, (Reported) Insulin Aspart* (Novolog*), 0 SUBQ, (Reported) Patient History Limited by: medical condition History Provided By: Patient, Medical Record, PMD Healthcare decision maker MARY JANE PRYOR Resuscitation status Full Code Advanced Directive on File Past Medical/Surgical History Past Medical/Surgical History: (1) Diabetes (2) Hypoalbuminemia (3) Feeding by G-tube (4) Alzheimer's dementia (5) Septic shock (6) Fever (7) Cellulitis (8) Leukocytosis (9) ATN (acute tubular necrosis) (10) Altered mental status (11) HTN (hypertension) (12) Cerebral vascular disease (13) MDD (major depressive disorder), recurrent episode, moderate (14) Encephalopathy due to metabolic factor or toxin (15) History of left above knee amputation (16) Seroma after procedure (17) feeding by Jt (18) Cerebral vascular disease (19) 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 (20) Seizure disorder (21) Urethral trauma (22) Dementia, multi-infarct (23) Transient hypotension (24) UTI (urinary tract infection) (25) Dehydration (26) Sepsis Review of Systems Constitutional: Reports: malaise, weakness Psychiatric: Reports: prior hx, anxiety, depressed feelings, emotional problems Physical Exam General Appearance: no apparent distress, alert, confused, cachetic Last 24 Hour Vital Signs Date Time Temp Pulse Resp B/P (MAP) Pulse Ox O2 Delivery O2 Flow Rate FiO2 11/05/18 09:00 Room Air 11/04/18 21:00 Room Air 11/04/18 18:00 97.8 101 19 149/83 (105) 98 11/04/18 16:00 98.2 87 20 131/83 (99) 98 11/04/18 14:14 97.7 108 20 159/86 (110) 98 11/04/18 13:01 98.2 81 18 121/68 100 Room Air 11/04/18 13:01 98.0 83 12 123/72 100 Intake and Output 11/04/18 11/05/18 19:00 07:00 Intake Total 550 ml 420 ml Output Total 600 ml 1601 ml Balance -50 ml -1181 ml Intake Oral 0 ml Free Water 500 ml 50 ml IV Total 50 ml Tube Feeding 370 ml Output Urine Total 600 ml 1600 ml Stool Total 1 ml # Bowel Movements 1 1 Height (Feet): 5 Height (Inches): 10.00 Weight (Pounds): 100 Medications Current Medications Medications (Trade) Dose Ordered Sig/Cristofer Route PRN Reason Start Time Stop Time Status Last Admin Dose Admin Acetaminophen (Tylenol) 650 mg Q4H PRN GT fever 11/04/18 09:45 12/04/18 07:24 Albuterol/ Ipratropium (Albuterol/ Ipratropium) 3 ml Q4H PRN HHN Shortness of Breath 11/04/18 07:25 11/09/18 07:24 Cefepime HCl 2 gm/ Dextrose 110 ml @ 220 mls/hr Q12H IV 11/04/18 14:00 11/11/18 13:59 11/05/18 01:41 Escitalopram Oxalate (Lexapro) 10 mg DAILY GT 11/04/18 09:00 12/04/18 08:59 11/04/18 09:46 Heparin Sodium (Porcine) (Heparin 5000 units/ml) 5,000 units EVERY 12 HOURS SUBQ 11/04/18 09:00 12/04/18 08:59 11/04/18 20:54 Levetiracetam (Keppra) 1,000 mg Q12HR GT 11/04/18 09:00 12/04/18 08:59 11/04/18 20:52 Morphine Sulfate (Morphine Sulfate) 2 mg Q4H PRN IVP Moderate Pain (Pain Scale 4-6) 11/04/18 07:26 11/11/18 07:25 Ondansetron HCl (Zofran) 4 mg Q6H PRN IVP Nausea & Vomiting 11/04/18 07:26 12/04/18 07:25 Phenazopyridine HCl (Pyridium) 100 mg DAILY PRN ORAL dysuria 11/04/18 09:44 12/04/18 09:43 Polyethylene Glycol (Miralax) 17 gm DAILYPRN PRN GT Constipation 11/04/18 09:45 12/04/18 07:24 Quetiapine Fumarate (SEROquel) 25 mg Q6H PRN GT agitation 11/04/18 09:45 12/04/18 07:23 Temazepam (Restoril) 15 mg HSPRN PRN GT Insomnia 11/04/18 21:00 11/11/18 20:59 Vancomycin HCl (Vanco rx to dose) 1 ea DAILY PRN MISC PER RX 11/04/18 13:00 12/04/18 12:59 Vancomycin HCl 500 mg/Dextrose 275 ml @ 275 mls/hr Q12H IVPB 11/04/18 15:30 11/09/18 15:29 11/04/18 16:43 Assessment/Plan Problem List: (1) Schizoaffective disorder ICD Codes: F25.9 - Schizoaffective disorder, unspecified SNOMED: 89993710 (2) Dementia, multi-infarct ICD Codes: F01.50 - Vascular dementia without behavioral disturbance SNOMED: 99889149 Qualifiers: Qualified Codes: F01.51 - Vascular dementia with behavioral disturbance (3) MDD (major depressive disorder), recurrent episode, moderate ICD Codes: F33.1 - Major depressive disorder, recurrent, moderate SNOMED: 90216233, 324867741 Assessment/Plan lexapro 10mg po qam seroquel 25mg the pt lacks capacity to make decisions Katherine Orozco MD Nov 05, 2018 11:25
--- NOTE | 2018-11-05 12:08 | NUR ---
RD ASSESSMENT & RECOMMENDATIONS SEE CARE ACTIVITY FOR COMPLETE ASSESSMENT DAILY ESTIMATED NEEDS: Needs based on Underweight, DM, 55 30-35 kcals/kg 3468-3368 total kcals 1-1.5 g protein/kg 55-83 g total protein 25-30 mL/kg 2108-2013 total fluid mLs NUTRITION DIAGNOSIS: *Swallowing difficulty r/t dysphagia as evidenced by pt is PEG dep for all nutritional needs. *Increased kcal and protein needs r/t underweight status as evidenced by pt is 70% IBW, w/ generalized severe wasting. CURRENT TF:Glucerna 1.2 @45ml ENTERAL NUTRITION RECOMMENDATIONS: Glucerna 1.2 @60ml x24 hrs to provide 1440ml, 1728 kcal, 86g prot, 1159ml free fluid - Rec to increase RATE to 60ml/hr to better meet est kcal/prot needs - Flush per MD/ HOB over 30 degrees ADDITIONAL RECOMMENDATIONS: 1) Monitor lytes closely w/ TF / replete as needed 2) RECALIBRATE BED SCALE: PER SNF: Ht of 73 inches, Wt 119# (10/25) 3) Monitor BG, need for iss . .
--- NOTE | 2018-11-05 13:12 | Pulmonology Progress Note ---
Assessment/Plan Problems: (1) Encephalopathy due to metabolic factor or toxin (2) UTI (urinary tract infection) (3) Sepsis (4) 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 (5) Alzheimer's dementia (6) Feeding by G-tube (7) Cerebral vascular disease (8) Diabetes mellitus type 2, insulin dependent (9) Schizoaffective disorder Assessment/Plan improving f/u cultures check electrolytes all reviewed tolerating gtube feeding dvt prophylaxis. Subjective ROS Limited/Unobtainable: Yes Allergies: Coded Allergies: DIVALPROEX SODIUM (Verified Allergy, Unknown, 06/01/18) PENICILLINS (Unverified Allergy, Unknown, 11/06/18) Tolerates cephalosporins Objective Last 24 Hour Vital Signs Date Time Temp Pulse Resp B/P (MAP) Pulse Ox O2 Delivery O2 Flow Rate FiO2 11/05/18 09:00 Room Air 11/04/18 21:00 Room Air 11/04/18 18:00 97.8 101 19 149/83 (105) 98 11/04/18 16:00 98.2 87 20 131/83 (99) 98 11/04/18 14:14 97.7 108 20 159/86 (110) 98 Intake and Output 11/04/18 11/05/18 19:00 07:00 Intake Total 550 ml 420 ml Output Total 600 ml 1601 ml Balance -50 ml -1181 ml Intake Oral 0 ml Free Water 500 ml 50 ml IV Total 50 ml Tube Feeding 370 ml Output Urine Total 600 ml 1600 ml Stool Total 1 ml # Bowel Movements 1 1 General Appearance: cachetic HEENT: normocephalic Respiratory/Chest: chest wall non-tender, lungs clear Cardiovascular: normal peripheral pulses, normal rate Abdomen: normal bowel sounds, soft, non tender, no scars Extremities: no cyanosis Skin: no rash Neurologic/Psychiatric: sap data analyst II-XII grossly normal Microbiology Date/Time Source Procedure Growth Status 11/03/18 23:55 Blood Blood Culture - Preliminary NO GROWTH AFTER 24 HOURS Resulted 11/03/18 23:50 Blood Blood Culture - Preliminary NO GROWTH AFTER 24 HOURS Resulted 11/04/18 10:00 Indwelling Cath Urine Culture - Preliminary Resulted 11/03/18 21:50 Urine,Clean Catch Urine Culture - Preliminary Gram Negative Bacillus 1 Resulted Current Medications Medications (Trade) Dose Ordered Sig/Cristofer Route PRN Reason Start Time Stop Time Status Last Admin Dose Admin Acetaminophen (Tylenol) 650 mg Q4H PRN GT fever 11/04/18 09:45 12/04/18 07:24 Albuterol/ Ipratropium (Albuterol/ Ipratropium) 3 ml Q4H PRN HHN Shortness of Breath 11/04/18 07:25 11/09/18 07:24 Cefepime HCl 2 gm/ Dextrose 110 ml @ 220 mls/hr Q12H IV 11/04/18 14:00 11/11/18 13:59 11/05/18 01:41 Escitalopram Oxalate (Lexapro) 10 mg DAILY GT 11/04/18 09:00 12/04/18 08:59 11/04/18 09:46 Heparin Sodium (Porcine) (Heparin 5000 units/ml) 5,000 units EVERY 12 HOURS SUBQ 11/04/18 09:00 12/04/18 08:59 11/04/18 20:54 Levetiracetam (Keppra) 1,000 mg Q12HR GT 11/04/18 09:00 12/04/18 08:59 11/04/18 20:52 Morphine Sulfate (Morphine Sulfate) 2 mg Q4H PRN IVP Moderate Pain (Pain Scale 4-6) 11/04/18 07:26 11/11/18 07:25 Ondansetron HCl (Zofran) 4 mg Q6H PRN IVP Nausea & Vomiting 11/04/18 07:26 12/04/18 07:25 Phenazopyridine HCl (Pyridium) 100 mg DAILY PRN ORAL dysuria 11/04/18 09:44 12/04/18 09:43 Polyethylene Glycol (Miralax) 17 gm DAILYPRN PRN GT Constipation 11/04/18 09:45 12/04/18 07:24 Quetiapine Fumarate (SEROquel) 25 mg Q6H PRN GT agitation 11/04/18 09:45 12/04/18 07:23 Temazepam (Restoril) 15 mg HSPRN PRN GT Insomnia 11/04/18 21:00 11/11/18 20:59 Vancomycin HCl (Vanco rx to dose) 1 ea DAILY PRN MISC PER RX 11/04/18 13:00 12/04/18 12:59 Vancomycin HCl 500 mg/Dextrose 275 ml @ 275 mls/hr Q12H IVPB 2/17/19 15:30 11/09/18 15:29 11/04/18 16:43 Dony Sanchez MD Nov 05, 2018 13:12
[2018-11-05 14:34] LABS: BASOPHILS % (AUTO) 0.6 % (0.0-2.0); EOSINOPHILS % (AUTO) 1.3 % (0.0-3.0); HEMATOCRIT 31.1 % (42.0-52.0); HEMOGLOBIN 10.6 G/DL (14.2-18.0); LYMPHOCYTES % (AUTO) 19.5 % (20.0-45.0); MEAN CORPUSCULAR VOLUME 93 FL (80-99); MONOCYTES % (AUTO) 11.4 % (1.0-10.0); NEUTROPHILS % (AUTO) 67.2 % (45.0-75.0); PLATELET COUNT 272 K/UL (150-450); RED BLOOD COUNT 3.34 M/UL (4.70-6.10); RED CELL DISTRIBUTION WIDTH 13.7 % (11.6-14.8)
[2018-11-05 14:53] LABS: ALANINE AMINOTRANSFERASE 12 U/L (12-78); ALBUMIN/GLOBULIN RATIO 0.6 (1.0-2.7); ALKALINE PHOSPHATASE 110 U/L (46-116); ANION GAP 9 mmol/L (5-15); ASPARTATE AMINO TRANSFERASE 16 U/L (15-37); BILIRUBIN,TOTAL 0.4 MG/DL (0.2-1.0); BLOOD UREA NITROGEN 7 mg/dL (7-18); CALCIUM 9.4 MG/DL (8.5-10.1); CARBON DIOXIDE 27 MMOL/L (21-32); CHLORIDE 102 MMOL/L (98-107); CREATININE 0.5 MG/DL (0.55-1.30); POTASSIUM 3.7 MMOL/L (3.5-5.1); SODIUM 137 MMOL/L (136-145)
[2018-11-05] MEDS: Vancomycin 750 MG in D5W 275 ML IVPB SCH (17:47)
--- NOTE | 2018-11-05 18:04 | Internal Med Progress Note ---
Subjective Date of Service: Nov 05, 2018 Physician Name Manjinder Marley Attending Physician Ean Joyce MD Current Medications Medications (Trade) Dose Ordered Sig/Cristofer Route PRN Reason Start Time Stop Time Status Last Admin Dose Admin Acetaminophen (Tylenol) 650 mg Q4H PRN GT fever 11/04/18 09:45 12/04/18 07:24 Albuterol/ Ipratropium (Albuterol/ Ipratropium) 3 ml Q4H PRN HHN Shortness of Breath 11/04/18 07:25 11/09/18 07:24 Cefepime HCl 2 gm/ Dextrose 110 ml @ 220 mls/hr Q12H IV 11/04/18 14:00 11/11/18 13:59 11/05/18 16:31 Escitalopram Oxalate (Lexapro) 10 mg DAILY GT 11/04/18 09:00 12/04/18 08:59 11/04/18 09:46 Heparin Sodium (Porcine) (Heparin 5000 units/ml) 5,000 units EVERY 12 HOURS SUBQ 11/04/18 09:00 12/04/18 08:59 11/04/18 20:54 Levetiracetam (Keppra) 1,000 mg Q12HR GT 11/04/18 09:00 12/04/18 08:59 11/04/18 20:52 Morphine Sulfate (Morphine Sulfate) 2 mg Q4H PRN IVP Moderate Pain (Pain Scale 4-6) 11/04/18 07:26 11/11/18 07:25 Ondansetron HCl (Zofran) 4 mg Q6H PRN IVP Nausea & Vomiting 11/04/18 07:26 12/04/18 07:25 Phenazopyridine HCl (Pyridium) 100 mg DAILY PRN ORAL dysuria 11/04/18 09:44 12/04/18 09:43 Polyethylene Glycol (Miralax) 17 gm DAILYPRN PRN GT Constipation 11/04/18 09:45 12/04/18 07:24 Quetiapine Fumarate (SEROquel) 25 mg Q6H PRN GT agitation 11/04/18 09:45 12/04/18 07:23 Temazepam (Restoril) 15 mg HSPRN PRN GT Insomnia 11/04/18 21:00 11/11/18 20:59 Vancomycin HCl (Vanco rx to dose) 1 ea DAILY PRN MISC PER RX 11/04/18 13:00 12/04/18 12:59 Vancomycin HCl 750 mg/Dextrose 275 ml @ 275 mls/hr Q12H IVPB 11/05/18 16:00 11/10/18 15:59 11/05/18 17:47 Allergies: Coded Allergies: DIVALPROEX SODIUM (Verified Allergy, Unknown, 06/01/18) PENICILLINS (Unverified Allergy, Unknown, 06/01/18) ROS Limited/Unobtainable: Yes Subjective 58 YO M admitted with malfunction ferreira cath. Now hematuria and UTI. Cover for Int Med-dr Joyce Objective Last Vital Signs Date Time Temp Pulse Resp B/P (MAP) Pulse Ox O2 Delivery O2 Flow Rate FiO2 11/05/18 09:00 Room Air 11/04/18 18:00 97.8 101 19 149/83 (105) 98 General Appearance: mild distress, cachetic, thin EENT: PERRL/EOMI, normal ENT inspection Neck: non-tender, normal alignment, supple Cardiovascular: normal peripheral pulses, normal rate, regular rhythm, no gallop/murmur, no JVD Respiratory/Chest: chest wall non-tender, lungs clear, normal breath sounds, no respiratory distress, no accessory muscle use Abdomen: normal bowel sounds, non tender, soft, no organomegaly, no mass Extremities: normal range of motion 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: 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 II-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 grossly normal, no motor/sensory deficits Skin: normal pigmentation, warm/dry Laboratory Tests Test 11/05/18 14:15 White Blood Count 6.0 K/UL (4.8-10.8) Red Blood Count 3.34 M/UL (4.70-6.10) L Hemoglobin 10.6 G/DL (14.2-18.0) L Hematocrit 31.1 % (42.0-52.0) L Mean Corpuscular Volume 93 FL (80-99) Mean Corpuscular Hemoglobin 31.6 PG (27.0-31.0) H Mean Corpuscular Hemoglobin Concent 33.9 G/DL (32.0-36.0) Red Cell Distribution Width 13.7 % (11.6-14.8) Platelet Count 272 K/UL (150-450) Mean Platelet Volume 7.2 FL (6.5-10.1) Neutrophils (%) (Auto) 67.2 % (45.0-75.0) Lymphocytes (%) (Auto) 19.5 % (20.0-45.0) L Monocytes (%) (Auto) 11.4 % (1.0-10.0) H Eosinophils (%) (Auto) 1.3 % (0.0-3.0) Basophils (%) (Auto) 0.6 % (0.0-2.0) Sodium Level 137 MMOL/L (136-145) Potassium Level 3.7 MMOL/L (3.5-5.1) Chloride Level 102 MMOL/L (98-107) Carbon Dioxide Level 27 MMOL/L (21-32) Anion Gap 9 mmol/L (5-15) Blood Urea Nitrogen 7 mg/dL (7-18) Creatinine 0.5 MG/DL (0.55-1.30) L Estimat Glomerular Filtration Rate > 60 mL/min (>60) Glucose Level 140 MG/DL (74-106) H Calcium Level 9.4 MG/DL (8.5-10.1) Total Bilirubin 0.4 MG/DL (0.2-1.0) Aspartate Amino Transf (AST/SGOT) 16 U/L (15-37) Alanine Aminotransferase (ALT/SGPT) 12 U/L (12-78) Alkaline Phosphatase 110 U/L (46-116) Total Protein 8.1 G/DL (6.4-8.2) Albumin 3.0 G/DL (3.4-5.0) L Globulin 5.1 g/dL Albumin/Globulin Ratio 0.6 (1.0-2.7) L Vancomycin Level Trough 2.8 ug/mL (5.0-12.0) L Microbiology Date/Time Source Procedure Growth Status 11/03/18 23:55 Blood Blood Culture - Preliminary NO GROWTH AFTER 24 HOURS Resulted 11/03/18 23:50 Blood Blood Culture - Preliminary NO GROWTH AFTER 24 HOURS Resulted 11/04/18 10:00 Indwelling Cath Urine Culture - Preliminary Resulted 11/03/18 21:50 Urine,Clean Catch Urine Culture - Preliminary Gram Negative Bacillus 1 Resulted Intake and Output 11/04/18 11/05/18 18:59 06:59 Intake Total 550 ml 420 ml Output Total 600 ml 1601 ml Balance -50 ml -1181 ml Intake Oral 0 ml Free Water 500 ml 50 ml IV Total 50 ml Tube Feeding 370 ml Output Urine Total 600 ml 1600 ml Stool Total 1 ml # Bowel Movements 1 1 Assessment/Plan Problem List: (1) Dysphagia Assessment & Plan: S/P G-tube (2) Diabetes mellitus type 2, insulin dependent (3) Hematuria (4) UTI (urinary tract infection) Assessment & Plan: Gram neg sin. Await ID and sens. Continue cefepime per ID (5) Feeding by G-tube (6) HTN (hypertension) (7) Seizure disorder Assessment & Plan: Continue keppra (8) Cerebral vascular disease (9) 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 Status: not improved Manjinder Marley MD Nov 05, 2018 18:04
--- NOTE | 2018-11-05 19:20 | NUR ---
HAND-OFF: Report given to JULIET Roberts.
[2018-11-05 20:00] VITALS: BP 105/61
--- NOTE | 2018-11-05 20:02 | NUR ---
NURSE NOTES: Received patient awake in bed, more receptive to care than last night, no s/s of acute distress. Tube feeding noted, running at 45cc/hr. Vargas noted, draining yellow urine. IV site asymptomatic, patent, dressing dry and intact. Bed on lowest position, 2 side rails up, call light within reach.
[2018-11-06] VITALS: BP 110/66
--- NOTE | 2018-11-06 | NUR ---
NURSE NOTES: Received patient in bed. On RA, no SOB, no acute distress, no c/o pain. On GT feeding, no s/sx of aspiration noted. RAC IV saline lock intact, patent. Bed in lowest position, locked, alarms on. Call light in reach.
[2018-11-06] MEDS: Cefepime HCl 2 GM in D5W 110 ML IV SCH ×2 (01:44→14:24)
[2018-11-06 04:00] VITALS: BP 107/53
[2018-11-06] MEDS: Vancomycin 750 MG in D5W 275 ML IVPB SCH ×2 (04:14→16:27)
[2018-11-06 07:11] LABS: BASOPHILS % (AUTO) 0.6 % (0.0-2.0); EOSINOPHILS % (AUTO) 2.1 % (0.0-3.0); HEMATOCRIT 34.1 % (42.0-52.0); HEMOGLOBIN 11.4 G/DL (14.2-18.0); LYMPHOCYTES % (AUTO) 19.3 % (20.0-45.0); MEAN CORPUSCULAR VOLUME 94 FL (80-99); MONOCYTES % (AUTO) 11.9 % (1.0-10.0); NEUTROPHILS % (AUTO) 66.1 % (45.0-75.0); PLATELET COUNT 267 K/UL (150-450); RED BLOOD COUNT 3.64 M/UL (4.70-6.10); RED CELL DISTRIBUTION WIDTH 14.2 % (11.6-14.8); WHITE BLOOD COUNT 6.9 K/UL (4.8-10.8)
[2018-11-06 07:13] LABS: ANION GAP 7 mmol/L (5-15); BLOOD UREA NITROGEN 9 mg/dL (7-18); CALCIUM 9.6 MG/DL (8.5-10.1); CARBON DIOXIDE 30 MMOL/L (21-32); CHLORIDE 99 MMOL/L (98-107); CREATININE 0.7 MG/DL (0.55-1.30); SODIUM 136 MMOL/L (136-145)
--- NOTE | 2018-11-06 07:32 | NUR ---
HAND-OFF: Report given to Yamil CHUNG.
--- NOTE | 2018-11-06 07:59 | NUR ---
NURSE NOTES: Patient sleeping, room air, respirations at 16 breaths per minute, HOB at 45 degrees, side rails up x 2, G-tube in place, Vargas catheter in place, bed in lowest position, call light within reach.
[2018-11-06 08:00] VITALS: BP 110/56
[2018-11-06] MEDS: levETIRAcetam 500mg/5ml Liquid GT SCH ×2 (09:41→21:57)
[2018-11-06] MEDS: Heparin 5000 units/ml inj SUBQ SCH ×3 (09:42→21:58)
--- NOTE | 2018-11-06 10:02 | NUR ---
NURSE NOTES: Unable to perform full physical assessment as patient grabbed my stethoscope that was hanging from around my neck, pulling on it and not letting go. Patient was refusing physical assessment, uncooperative, and this behavior is aggressive. I was able to free his hands from around my stethoscope and, at that point, I ceased from any contact with patient and left the room. I informed the JULIET Meza, Charge Nurse.
[2018-11-06] MEDS ORDERED: Haloperidol 5mg/ml Inj IM PRN ×2 (11:00)
[2018-11-06 12:00] VITALS: BP 118/59
--- NOTE | 2018-11-06 12:03 | General Progress Note ---
Assessment/Plan Problem List: (1) Schizoaffective disorder ICD Codes: F25.9 - Schizoaffective disorder, unspecified SNOMED: 24991332 (2) Dementia, multi-infarct ICD Codes: F01.50 - Vascular dementia without behavioral disturbance SNOMED: 38752525 Qualifiers: Qualified Codes: F01.51 - Vascular dementia with behavioral disturbance (3) MDD (major depressive disorder), recurrent episode, moderate ICD Codes: F33.1 - Major depressive disorder, recurrent, moderate SNOMED: 35209378, 600162366 Status: unchanged Assessment/Plan Lexapro 10mg po qam Seroquel 25mg the pt lacks capacity to make decisions Haldol im prn Subjective Neurologic/Psychiatric: Reports: anxiety Allergies: Coded Allergies: DIVALPROEX SODIUM (Verified Allergy, Unknown, 06/01/18) PENICILLINS (Unverified Allergy, Unknown, 06/01/18) Subjective the pt was agitated and aggressive with his nurse today. the pt is more confused than baseline. the pt was unable to be engaged and answer the questions. Objective Last 24 Hour Vital Signs Date Time Temp Pulse Resp B/P (MAP) Pulse Ox O2 Delivery O2 Flow Rate FiO2 11/06/18 09:00 Room Air 11/06/18 08:00 98.2 79 17 110/56 (74) 100 11/06/18 04:00 97.9 76 16 107/53 (71) 100 11/06/18 00:00 97.9 80 18 110/66 (81) 99 11/05/18 21:00 Room Air 11/05/18 20:00 97.9 72 16 105/61 (76) 98 Intake and Output 11/05/18 11/06/18 19:00 07:00 Intake Total 1025 ml 680 ml Output Total 2400 ml Balance -1375 ml 680 ml Free Water 100 ml 75 ml IV Total 385 ml 110 ml Tube Feeding 540 ml 495 ml Output Urine Total 2400 ml Laboratory Tests 11/05/18 14:15: White Blood Count 6.0, Red Blood Count 3.34L, Hemoglobin 10.6L, Hematocrit 31.1L , Mean Corpuscular Volume 93, Mean Corpuscular Hemoglobin 31.6H, Mean Corpuscular Hemoglobin Concent 33.9, Red Cell Distribution Width 13.7, Platelet Count 272, Mean Platelet Volume 7.2, Neutrophils (%) (Auto) 67.2, Lymphocytes (% ) (Auto) 19.5L, Monocytes (%) (Auto) 11.4H, Eosinophils (%) (Auto) 1.3, Basophils (%) (Auto) 0.6, Sodium Level 137, Potassium Level 3.7, Chloride Level 102, Carbon Dioxide Level 27, Anion Gap 9, Blood Urea Nitrogen 7, Creatinine 0.5L, Estimat Glomerular Filtration Rate > 60, Glucose Level 140H, Calcium Level 9.4, Total Bilirubin 0.4, Aspartate Amino Transf (AST/SGOT) 16, Alanine Aminotransferase (ALT/SGPT) 12, Alkaline Phosphatase 110, Total Protein 8.1, Albumin 3.0L, Globulin 5.1, Albumin/Globulin Ratio 0.6L, Vancomycin Level Trough 2.8L 11/06/18 05:55: White Blood Count 6.9, Red Blood Count 3.64L, Hemoglobin 11.4L, Hematocrit 34.1L , Mean Corpuscular Volume 94, Mean Corpuscular Hemoglobin 31.3H, Mean Corpuscular Hemoglobin Concent 33.4, Red Cell Distribution Width 14.2, Platelet Count 267, Mean Platelet Volume 7.7, Neutrophils (%) (Auto) 66.1, Lymphocytes (% ) (Auto) 19.3L, Monocytes (%) (Auto) 11.9H, Eosinophils (%) (Auto) 2.1, Basophils (%) (Auto) 0.6, Sodium Level 136, Potassium Level 4.0, Chloride Level 99, Carbon Dioxide Level 30, Anion Gap 7, Blood Urea Nitrogen 9, Creatinine 0.7 , Estimat Glomerular Filtration Rate > 60, Glucose Level 200H, Calcium Level 9.6 Height (Feet): 5 Height (Inches): 10.00 Weight (Pounds): 100 General Appearance: alert, confused, agitated, cachetic Katherine Orozco MD Nov 06, 2018 12:03
--- NOTE | 2018-11-06 12:48 | Infectious Diseases Prog Note ---
Assessment/Plan Assessment/Plan Assessment: Sepsis-likely 2ry to UTI -u/a wbc tnct, nit neg, leuk +3; ucx Serratia marcescens, probable AMp-C (R Ancef, Ceftazidime, Levo, nitro; S Cefepime, ceftriaxone) -CXR: Normal chest x-ray. -Bcx nTD Afebrile Leukocytosis, SP hematuria vascular dementia Dm duodenal ulcer CVA MDD seizures disorder s/p L leg BKA dysphagia s/p J-tube (w/ hx of malfunction and replacement on 07/2018) SNF resident Plan: -Continue empiric Cefepime #4/5-7 for UTI -11/05 SP IV Vancomycin #3 -11/03 SP Levaquin x1 -f/u cx -Monitor CBC/CMP, temperatures -J tube care -aspiration precautions Thank you for this consultation. Will continue to follow along with you. Discussed with RN. Subjective Allergies: Coded Allergies: DIVALPROEX SODIUM (Verified Allergy, Unknown, 06/01/18) PENICILLINS (Unverified Allergy, Unknown, 06/01/18) Subjective afebrile no leukocytosis Bcx NTD Objective Vital Signs Last 24 Hour Vital Signs Date Time Temp Pulse Resp B/P (MAP) Pulse Ox O2 Delivery O2 Flow Rate FiO2 11/06/18 12:00 97.9 81 18 118/59 (78) 98 11/06/18 09:00 Room Air 11/06/18 08:00 98.2 79 17 110/56 (74) 100 11/06/18 04:00 97.9 76 16 107/53 (71) 100 11/06/18 00:00 97.9 80 18 110/66 (81) 99 11/05/18 21:00 Room Air 11/05/18 20:00 97.9 72 16 105/61 (76) 98 Height (Feet): 5 Height (Inches): 10.00 Weight (Pounds): 100 Objective GENERAL: The patient is a well-developed, well-nourished, nonverbal white male, in no apparent distress. HEENT: Eyes: Pupils equal and responsive to light and accommodation. Extraocular movements are intact. NECK: Supple without lymphadenopathy. CHEST: Lungs are clear to auscultation bilaterally without wheezes or rales. CARDIOVASCULAR: Regular rate. S1 and S2 are normal without murmurs, rubs, or gallops. ABDOMEN: Soft, nontender, and nondistended. Positive bowel sounds. No evidence of hepatosplenomegaly. Currently, no rebound or guarding noted. RECTAL: Refused. GENITAL: Refused. EXTREMITIES: Negative for clubbing, cyanosis, or edema. NEUROLOGIC: Cranial nerves II through XII are grossly intact without focal deficits. Microbiology Date/Time Source Procedure Growth Status 11/03/18 23:55 Blood Blood Culture - Preliminary NO GROWTH AFTER 48 HOURS Resulted 11/03/18 23:50 Blood Blood Culture - Preliminary NO GROWTH AFTER 48 HOURS Resulted 11/04/18 07:00 Nasal Nares Left MRSA Culture - Final NO METHICILLIN RESISTANT STAPH AUREUS... Complete 11/04/18 10:00 Indwelling Cath Urine Culture - Preliminary Mixed Gram Positive Organism Resulted 11/03/18 21:50 Urine,Clean Catch Urine Culture - Final Serratia Marcescens Complete 11/04/18 07:00 Rectum VRE Culture - Final NO VANCOMYCIN RESISTANT ENTEROCOCCUS ... Resulted 11/04/18 07:00 Rectum Pending Resulted Laboratory Tests Test 11/05/18 14:15 11/06/18 05:55 White Blood Count 6.0 K/UL (4.8-10.8) 6.9 K/UL (4.8-10.8) Red Blood Count 3.34 M/UL (4.70-6.10) L 3.64 M/UL (4.70-6.10) L Hemoglobin 10.6 G/DL (14.2-18.0) L 11.4 G/DL (14.2-18.0) L Hematocrit 31.1 % (42.0-52.0) L 34.1 % (42.0-52.0) L Mean Corpuscular Volume 93 FL (80-99) 94 FL (80-99) Mean Corpuscular Hemoglobin 31.6 PG (27.0-31.0) H 31.3 PG (27.0-31.0) H Mean Corpuscular Hemoglobin Concent 33.9 G/DL (32.0-36.0) 33.4 G/DL (32.0-36.0) Red Cell Distribution Width 13.7 % (11.6-14.8) 14.2 % (11.6-14.8) Platelet Count 272 K/UL (150-450) 267 K/UL (150-450) Mean Platelet Volume 7.2 FL (6.5-10.1) 7.7 FL (6.5-10.1) Neutrophils (%) (Auto) 67.2 % (45.0-75.0) 66.1 % (45.0-75.0) Lymphocytes (%) (Auto) 19.5 % (20.0-45.0) L 19.3 % (20.0-45.0) L Monocytes (%) (Auto) 11.4 % (1.0-10.0) H 11.9 % (1.0-10.0) H Eosinophils (%) (Auto) 1.3 % (0.0-3.0) 2.1 % (0.0-3.0) Basophils (%) (Auto) 0.6 % (0.0-2.0) 0.6 % (0.0-2.0) Sodium Level 137 MMOL/L (136-145) 136 MMOL/L (136-145) Potassium Level 3.7 MMOL/L (3.5-5.1) 4.0 MMOL/L (3.5-5.1) Chloride Level 102 MMOL/L (98-107) 99 MMOL/L (98-107) Carbon Dioxide Level 27 MMOL/L (21-32) 30 MMOL/L (21-32) Anion Gap 9 mmol/L (5-15) 7 mmol/L (5-15) Blood Urea Nitrogen 7 mg/dL (7-18) 9 mg/dL (7-18) Creatinine 0.5 MG/DL (0.55-1.30) L 0.7 MG/DL (0.55-1.30) Estimat Glomerular Filtration Rate > 60 mL/min (>60) > 60 mL/min (>60) Glucose Level 140 MG/DL (74-106) H 200 MG/DL (74-106) H Calcium Level 9.4 MG/DL (8.5-10.1) 9.6 MG/DL (8.5-10.1) Total Bilirubin 0.4 MG/DL (0.2-1.0) Aspartate Amino Transf (AST/SGOT) 16 U/L (15-37) Alanine Aminotransferase (ALT/SGPT) 12 U/L (12-78) Alkaline Phosphatase 110 U/L (46-116) Total Protein 8.1 G/DL (6.4-8.2) Albumin 3.0 G/DL (3.4-5.0) L Globulin 5.1 g/dL Albumin/Globulin Ratio 0.6 (1.0-2.7) L Vancomycin Level Trough 2.8 ug/mL (5.0-12.0) L Current Medications Medications (Trade) Dose Ordered Sig/Cristofer Route PRN Reason Start Time Stop Time Status Last Admin Dose Admin Acetaminophen (Tylenol) 650 mg Q4H PRN GT fever 11/04/18 09:45 12/04/18 07:24 Albuterol/ Ipratropium (Albuterol/ Ipratropium) 3 ml Q4H PRN HHN Shortness of Breath 11/04/18 07:25 11/09/18 07:24 Cefepime HCl 2 gm/ Dextrose 110 ml @ 220 mls/hr Q12H IV 11/04/18 14:00 11/11/18 13:59 11/06/18 01:44 Escitalopram Oxalate (Lexapro) 10 mg DAILY GT 11/04/18 09:00 12/04/18 08:59 11/06/18 09:41 Haloperidol Lactate (Haldol) 5 mg Q6H PRN IM Agitation 11/06/18 11:00 12/06/18 10:59 Heparin Sodium (Porcine) (Heparin 5000 units/ml) 5,000 units EVERY 12 HOURS SUBQ 11/04/18 09:00 12/04/18 08:59 11/06/18 09:42 Levetiracetam (Keppra) 1,000 mg Q12HR GT 11/04/18 09:00 12/04/18 08:59 11/06/18 09:41 Morphine Sulfate (Morphine Sulfate) 2 mg Q4H PRN IVP Moderate Pain (Pain Scale 4-6) 11/04/18 07:26 11/11/18 07:25 Ondansetron HCl (Zofran) 4 mg Q6H PRN IVP Nausea & Vomiting 11/04/18 07:26 12/04/18 07:25 Phenazopyridine HCl (Pyridium) 100 mg DAILY PRN ORAL dysuria 11/04/18 09:44 12/04/18 09:43 Polyethylene Glycol (Miralax) 17 gm DAILYPRN PRN GT Constipation 11/04/18 09:45 12/04/18 07:24 Quetiapine Fumarate (SEROquel) 25 mg Q6H PRN GT agitation 11/04/18 09:45 12/04/18 07:23 11/06/18 09:41 Temazepam (Restoril) 15 mg HSPRN PRN GT Insomnia 11/04/18 21:00 11/11/18 20:59 Vancomycin HCl (Vanco rx to dose) 1 ea DAILY PRN MISC PER RX 11/04/18 13:00 12/04/18 12:59 Vancomycin HCl 750 mg/Dextrose 275 ml @ 275 mls/hr Q12H IVPB 11/05/18 16:00 11/10/18 15:59 11/06/18 04:14 Ruthy Sin M.D. Nov 06, 2018 12:48
--- NOTE | 2018-11-06 14:19 | Pulmonology Progress Note ---
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 symptomatic treatment Subjective ROS Limited/Unobtainable: No Constitutional: Reports: no symptoms HEENT: Repors: no symptoms Respiratory: Reports: no symptoms Allergies: Coded Allergies: DIVALPROEX SODIUM (Verified Allergy, Unknown, 06/01/18) PENICILLINS (Unverified Allergy, Unknown, 11/06/18) Tolerates cephalosporins Objective Last 24 Hour Vital Signs Date Time Temp Pulse Resp B/P (MAP) Pulse Ox O2 Delivery O2 Flow Rate FiO2 11/06/18 12:00 97.9 81 18 118/59 (78) 98 11/06/18 09:00 Room Air 11/06/18 08:00 98.2 79 17 110/56 (74) 100 11/06/18 04:00 97.9 76 16 107/53 (71) 100 11/06/18 00:00 97.9 80 18 110/66 (81) 99 11/05/18 21:00 Room Air 11/05/18 20:00 97.9 72 16 105/61 (76) 98 Intake and Output 11/05/18 11/06/18 19:00 07:00 Intake Total 1025 ml 680 ml Output Total 2400 ml Balance -1375 ml 680 ml Free Water 100 ml 75 ml IV Total 385 ml 110 ml Tube Feeding 540 ml 495 ml Output Urine Total 2400 ml General Appearance: WD/WN, cachetic HEENT: normocephalic, atraumatic, PERRL Respiratory/Chest: chest wall non-tender, lungs clear Cardiovascular: normal peripheral pulses, normal rate Abdomen: normal bowel sounds, soft, non tender Genitourinary: normal external genitalia Extremities: no clubbing 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 Complete 11/04/18 10:00 Indwelling Cath Urine Culture - Preliminary Mixed Gram Positive Organism Resulted 11/03/18 21:50 Urine,Clean Catch Urine Culture - Final Serratia Marcescens Complete 11/04/18 07:00 Rectum VRE Culture - Final NO VANCOMYCIN RESISTANT ENTEROCOCCUS ... Resulted 11/04/18 07:00 Rectum Pending Resulted Laboratory Tests 11/06/18 05:55: White Blood Count 6.9, Red Blood Count 3.64L, Hemoglobin 11.4L, Hematocrit 34.1L , Mean Corpuscular Volume 94, Mean Corpuscular Hemoglobin 31.3H, Mean Corpuscular Hemoglobin Concent 33.4, Red Cell Distribution Width 14.2, Platelet Count 267, Mean Platelet Volume 7.7, Neutrophils (%) (Auto) 66.1, Lymphocytes (% ) (Auto) 19.3L, Monocytes (%) (Auto) 11.9H, Eosinophils (%) (Auto) 2.1, Basophils (%) (Auto) 0.6, Sodium Level 136, Potassium Level 4.0, Chloride Level 99, Carbon Dioxide Level 30, Anion Gap 7, Blood Urea Nitrogen 9, Creatinine 0.7 , Estimat Glomerular Filtration Rate > 60, Glucose Level 200H, Calcium Level 9.6 Current Medications Medications (Trade) Dose Ordered Sig/Cristofer Route PRN Reason Start Time Stop Time Status Last Admin Dose Admin Acetaminophen (Tylenol) 650 mg Q4H PRN GT fever 11/04/18 09:45 12/04/18 07:24 Albuterol/ Ipratropium (Albuterol/ Ipratropium) 3 ml Q4H PRN HHN Shortness of Breath 11/04/18 07:25 11/09/18 07:24 Cefepime HCl 2 gm/ Dextrose 110 ml @ 220 mls/hr Q12H IV 11/04/18 14:00 11/11/18 13:59 11/06/18 01:44 Escitalopram Oxalate (Lexapro) 10 mg DAILY GT 11/04/18 09:00 12/04/18 08:59 11/06/18 09:41 Haloperidol Lactate (Haldol) 5 mg Q6H PRN IM Agitation 11/06/18 11:00 12/06/18 10:59 Heparin Sodium (Porcine) (Heparin 5000 units/ml) 5,000 units EVERY 12 HOURS SUBQ 11/04/18 09:00 12/04/18 08:59 11/06/18 09:42 Levetiracetam (Keppra) 1,000 mg Q12HR GT 11/04/18 09:00 12/04/18 08:59 11/06/18 09:41 Morphine Sulfate (Morphine Sulfate) 2 mg Q4H PRN IVP Moderate Pain (Pain Scale 4-6) 11/04/18 07:26 11/11/18 07:25 Ondansetron HCl (Zofran) 4 mg Q6H PRN IVP Nausea & Vomiting 11/04/18 07:26 12/04/18 07:25 Phenazopyridine HCl (Pyridium) 100 mg DAILY PRN ORAL dysuria 11/04/18 09:44 12/04/18 09:43 Polyethylene Glycol (Miralax) 17 gm DAILYPRN PRN GT Constipation 11/04/18 09:45 12/04/18 07:24 Quetiapine Fumarate (SEROquel) 25 mg Q6H PRN GT agitation 11/04/18 09:45 12/04/18 07:23 11/06/18 09:41 Temazepam (Restoril) 15 mg HSPRN PRN GT Insomnia 11/04/18 21:00 11/11/18 20:59 Vancomycin HCl (Vanco rx to dose) 1 ea DAILY PRN MISC PER RX 11/04/18 13:00 12/04/18 12:59 Vancomycin HCl 750 mg/Dextrose 275 ml @ 275 mls/hr Q12H IVPB 11/05/18 16:00 11/10/18 15:59 11/06/18 04:14 Dony Sanchez MD Nov 06, 2018 14:19
--- NOTE | 2018-11-06 15:24 | Internal Med Progress Note ---
Subjective Date of Service: Nov 06, 2018 Physician Name Manjinder Marley Attending Physician Ean Joyce MD Current Medications Medications (Trade) Dose Ordered Sig/Cristofer Route PRN Reason Start Time Stop Time Status Last Admin Dose Admin Acetaminophen (Tylenol) 650 mg Q4H PRN GT fever 11/04/18 09:45 12/04/18 07:24 Albuterol/ Ipratropium (Albuterol/ Ipratropium) 3 ml Q4H PRN HHN Shortness of Breath 11/04/18 07:25 11/09/18 07:24 Cefepime HCl 2 gm/ Dextrose 110 ml @ 220 mls/hr Q12H IV 11/04/18 14:00 11/11/18 13:59 11/06/18 14:24 Escitalopram Oxalate (Lexapro) 10 mg DAILY GT 11/04/18 09:00 12/04/18 08:59 11/06/18 09:41 Haloperidol Lactate (Haldol) 5 mg Q6H PRN IM Agitation 11/06/18 11:00 12/06/18 10:59 Heparin Sodium (Porcine) (Heparin 5000 units/ml) 5,000 units EVERY 12 HOURS SUBQ 11/04/18 09:00 12/04/18 08:59 11/06/18 09:42 Levetiracetam (Keppra) 1,000 mg Q12HR GT 11/04/18 09:00 12/04/18 08:59 11/06/18 09:41 Morphine Sulfate (Morphine Sulfate) 2 mg Q4H PRN IVP Moderate Pain (Pain Scale 4-6) 11/04/18 07:26 11/11/18 07:25 Ondansetron HCl (Zofran) 4 mg Q6H PRN IVP Nausea & Vomiting 11/04/18 07:26 12/04/18 07:25 Phenazopyridine HCl (Pyridium) 100 mg DAILY PRN ORAL dysuria 11/04/18 09:44 12/04/18 09:43 Polyethylene Glycol (Miralax) 17 gm DAILYPRN PRN GT Constipation 11/04/18 09:45 12/04/18 07:24 Quetiapine Fumarate (SEROquel) 25 mg Q6H PRN GT agitation 11/04/18 09:45 12/04/18 07:23 11/06/18 09:41 Temazepam (Restoril) 15 mg HSPRN PRN GT Insomnia 11/04/18 21:00 11/11/18 20:59 Vancomycin HCl (Vanco rx to dose) 1 ea DAILY PRN MISC PER RX 11/04/18 13:00 12/04/18 12:59 Vancomycin HCl 750 mg/Dextrose 275 ml @ 275 mls/hr Q12H IVPB 11/05/18 16:00 11/10/18 15:59 11/06/18 04:14 Allergies: Coded Allergies: DIVALPROEX SODIUM (Verified Allergy, Unknown, 06/01/18) PENICILLINS (Unverified Allergy, Unknown, 11/06/18) Tolerates cephalosporins ROS Limited/Unobtainable: Yes Subjective 58 YO M admitted with malfunction ferreira cath. Now hematuria and UTI. Cover for Int Med-dr Joyce Objective Last Vital Signs Date Time Temp Pulse Resp B/P (MAP) Pulse Ox O2 Delivery O2 Flow Rate FiO2 11/06/18 12:00 97.9 81 18 118/59 (78) 98 11/06/18 09:00 Room Air Laboratory Tests Test 11/06/18 05:55 White Blood Count 6.9 K/UL (4.8-10.8) Red Blood Count 3.64 M/UL (4.70-6.10) L Hemoglobin 11.4 G/DL (14.2-18.0) L Hematocrit 34.1 % (42.0-52.0) L Mean Corpuscular Volume 94 FL (80-99) Mean Corpuscular Hemoglobin 31.3 PG (27.0-31.0) H Mean Corpuscular Hemoglobin Concent 33.4 G/DL (32.0-36.0) Red Cell Distribution Width 14.2 % (11.6-14.8) Platelet Count 267 K/UL (150-450) Mean Platelet Volume 7.7 FL (6.5-10.1) Neutrophils (%) (Auto) 66.1 % (45.0-75.0) Lymphocytes (%) (Auto) 19.3 % (20.0-45.0) L Monocytes (%) (Auto) 11.9 % (1.0-10.0) H Eosinophils (%) (Auto) 2.1 % (0.0-3.0) Basophils (%) (Auto) 0.6 % (0.0-2.0) Sodium Level 136 MMOL/L (136-145) Potassium Level 4.0 MMOL/L (3.5-5.1) Chloride Level 99 MMOL/L (98-107) Carbon Dioxide Level 30 MMOL/L (21-32) Anion Gap 7 mmol/L (5-15) Blood Urea Nitrogen 9 mg/dL (7-18) Creatinine 0.7 MG/DL (0.55-1.30) Estimat Glomerular Filtration Rate > 60 mL/min (>60) Glucose Level 200 MG/DL (74-106) H Calcium Level 9.6 MG/DL (8.5-10.1) Microbiology Date/Time Source Procedure Growth Status 11/03/18 23:55 Blood Blood Culture - Preliminary NO GROWTH AFTER 48 HOURS Resulted 11/03/18 23:50 Blood Blood Culture - Preliminary NO GROWTH AFTER 48 HOURS Resulted 11/04/18 07:00 Nasal Nares Left MRSA Culture - Final NO METHICILLIN RESISTANT STAPH AUREUS... Complete 11/04/18 10:00 Indwelling Cath Urine Culture - Preliminary Mixed Gram Positive Organism Resulted 11/03/18 21:50 Urine,Clean Catch Urine Culture - Final Serratia Marcescens Complete 11/04/18 07:00 Rectum VRE Culture - Final NO VANCOMYCIN RESISTANT ENTEROCOCCUS ... Resulted 11/04/18 07:00 Rectum Pending Resulted Intake and Output 11/05/18 11/06/18 19:00 07:00 Intake Total 1025 ml 680 ml Output Total 2400 ml Balance -1375 ml 680 ml Free Water 100 ml 75 ml IV Total 385 ml 110 ml Tube Feeding 540 ml 495 ml Output Urine Total 2400 ml Assessment/Plan Problem List: (1) Diabetes mellitus type 2, insulin dependent (2) UTI (urinary tract infection) Assessment & Plan: Serratia. 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
--- NOTE | 2018-11-06 15:34 | Cardiology Report ---
APPROVED REPORT EKG Measurement Heart [id number] Normal sinus rhythm Normal ECG
[2018-11-06 16:00] VITALS: BP 131/62
--- NOTE | 2018-11-06 19:30 | NUR ---
NURSE NOTES: Received report from JULIET David. Patient in bed, on room air. No signs of distress or labored breathing. IV intact, patent, and saline locked. G-tube intact, patent, and infusing feeding. Vargas intact, patent, and draining urine. Bed in lowest position with call light in reach. Will continue with plan of care.
--- NOTE | 2018-11-06 19:57 | NUR ---
HAND-OFF: Report given to Maria E Beyer RN. Patient sitting HOB at 45 degrees, awake and alert, watching television, bed in lowest position, call light within reach, G-tube in place, Vargas catheter in place, in no apparent distress.
[2018-11-06 20:00] VITALS: BP 114/64
[2018-11-07] VITALS: BP 109/66
[2018-11-07] MEDS: Cefepime HCl 2 GM in D5W 110 ML IV SCH ×2 (02:00→14:13)
[2018-11-07 04:00] VITALS: BP 109/64
[2018-11-07] MEDS: Vancomycin 750 MG in D5W 275 ML IVPB SCH (04:44)
--- NOTE | 2018-11-07 07:54 | NUR ---
NURSE NOTES: Patient alert x 2, on room air, no sign of shortness of breath and chest pain; Tube feeding Glucerna 1.2 running at 45 cc; Vargas drains well; IV RAC 24G NS running TKO; bed at lowest position and side rails up x2, breaks engaged; bed at lowest position. Will keep monitoring.
[2018-11-07 08:00] VITALS: BP 104/69
[2018-11-07] MEDS: levETIRAcetam 500mg/5ml Liquid GT SCH ×2 (08:21→20:28)
[2018-11-07] MEDS: Heparin 5000 units/ml inj SUBQ SCH ×3 (08:22→20:29)
[2018-11-07 12:00] VITALS: BP 108/63
--- NOTE | 2018-11-07 14:23 | Pulmonology Progress Note ---
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 symptomatic treatment Subjective ROS Limited/Unobtainable: No Constitutional: Reports: no symptoms HEENT: Repors: no symptoms Allergies: Coded Allergies: DIVALPROEX SODIUM (Verified Allergy, Unknown, 06/01/18) PENICILLINS (Unverified Allergy, Unknown, 11/06/18) Tolerates cephalosporins Objective Last 24 Hour Vital Signs Date Time Temp Pulse Resp B/P (MAP) Pulse Ox O2 Delivery O2 Flow Rate FiO2 11/07/18 12:00 97.1 97 17 108/63 (78) 96 11/07/18 09:00 Room Air 11/07/18 08:00 97.9 76 18 104/69 (81) 99 11/07/18 04:00 97.4 90 16 109/64 (79) 99 11/07/18 00:00 97.4 99 20 109/66 (80) 95 11/06/18 21:00 Room Air 11/06/18 20:00 97.0 90 16 114/64 (81) 96 11/06/18 16:00 97.8 94 18 131/62 (85) 98 Intake and Output 11/06/18 11/07/18 19:00 07:00 Intake Total 1065 ml 580 ml Output Total 800 ml 550 ml Balance 265 ml 30 ml Free Water 130 ml IV Total 660 ml Tube Feeding 405 ml 450 ml Output Urine Total 800 ml 550 ml General Appearance: WD/WN HEENT: normocephalic, atraumatic Respiratory/Chest: chest wall non-tender, lungs clear Cardiovascular: normal peripheral pulses, normal rate Abdomen: normal bowel sounds, soft, non tender Genitourinary: normal external genitalia Current Medications Medications (Trade) Dose Ordered Sig/Cristofer Route PRN Reason Start Time Stop Time Status Last Admin Dose Admin Acetaminophen (Tylenol) 650 mg Q4H PRN GT fever 11/04/18 09:45 12/04/18 07:24 Albuterol/ Ipratropium (Albuterol/ Ipratropium) 3 ml Q4H PRN HHN Shortness of Breath 11/04/18 07:25 11/09/18 07:24 Cefepime HCl 2 gm/ Dextrose 110 ml @ 220 mls/hr Q12H IV 11/04/18 14:00 11/11/18 13:59 11/07/18 14:13 Escitalopram Oxalate (Lexapro) 10 mg DAILY GT 11/04/18 09:00 12/04/18 08:59 11/07/18 08:21 Haloperidol Lactate (Haldol) 5 mg Q6H PRN IM Agitation 11/06/18 11:00 12/06/18 10:59 Heparin Sodium (Porcine) (Heparin 5000 units/ml) 5,000 units EVERY 12 HOURS SUBQ 11/04/18 09:00 12/04/18 08:59 11/06/18 09:42 Levetiracetam (Keppra) 1,000 mg Q12HR GT 11/04/18 09:00 12/04/18 08:59 11/07/18 08:21 Morphine Sulfate (Morphine Sulfate) 2 mg Q4H PRN IVP Moderate Pain (Pain Scale 4-6) 11/04/18 07:26 11/11/18 07:25 Ondansetron HCl (Zofran) 4 mg Q6H PRN IVP Nausea & Vomiting 11/04/18 07:26 12/04/18 07:25 Phenazopyridine HCl (Pyridium) 100 mg DAILY PRN ORAL dysuria 11/04/18 09:44 12/04/18 09:43 Polyethylene Glycol (Miralax) 17 gm DAILYPRN PRN GT Constipation 11/04/18 09:45 12/04/18 07:24 Quetiapine Fumarate (SEROquel) 25 mg Q6H PRN GT agitation 11/04/18 09:45 12/04/18 07:23 11/06/18 09:41 Temazepam (Restoril) 15 mg HSPRN PRN GT Insomnia 11/04/18 21:00 11/11/18 20:59 Vancomycin HCl (Vanco rx to dose) 1 ea DAILY PRN MISC PER RX 11/04/18 13:00 12/04/18 12:59 Vancomycin HCl 750 mg/Dextrose 275 ml @ 275 mls/hr Q12H IVPB 11/05/18 16:00 11/10/18 15:59 11/07/18 04:44 Dony Sanchez MD Nov 07, 2018 14:23
[2018-11-07 16:00] VITALS: BP 110/77
--- NOTE | 2018-11-07 16:48 | Infectious Diseases Prog Note ---
Assessment/Plan Assessment/Plan Assessment: Sepsis-likely 2ry to UTI -u/a wbc tnct, nit neg, leuk +3; ucx Serratia marcescens, probable AMp-C (R Ancef, Ceftazidime, Levo, nitro; S Cefepime, ceftriaxone); repaet ucx 11/04 20K S ,aures, <10k GNR, 20-30 mixed gram positive (colonizers) -CXR: Normal chest x-ray. -Bcx nTD Afebrile Leukocytosis, SP hematuria vascular dementia Dm duodenal ulcer CVA MDD seizures disorder s/p L leg BKA dysphagia s/p J-tube (w/ hx of malfunction and replacement on 07/2018) SNF resident Plan: -Continue empiric Cefepime #5/ for UTI -Dc Vancomycin # 5 -11/03 SP Levaquin x1 -f/u cx -Monitor CBC/CMP, temperatures -J tube care -aspiration precautions Thank you for this consultation. Will continue to follow along with you. Discussed with RN. Subjective Allergies: Coded Allergies: DIVALPROEX SODIUM (Verified Allergy, Unknown, 06/01/18) PENICILLINS (Unverified Allergy, Unknown, 11/06/18) Tolerates cephalosporins Subjective afebrile no leukocytosis Bcx NTD Objective Vital Signs Last 24 Hour Vital Signs Date Time Temp Pulse Resp B/P (MAP) Pulse Ox O2 Delivery O2 Flow Rate FiO2 11/07/18 12:00 97.1 97 17 108/63 (78) 96 11/07/18 09:00 Room Air 11/07/18 08:00 97.9 76 18 104/69 (81) 99 11/07/18 04:00 97.4 90 16 109/64 (79) 99 11/07/18 00:00 97.4 99 20 109/66 (80) 95 11/06/18 21:00 Room Air 11/06/18 20:00 97.0 90 16 114/64 (81) 96 Height (Feet): 5 Height (Inches): 10.00 Weight (Pounds): 128 Objective GENERAL: The patient is a well-developed, well-nourished, nonverbal white male, in no apparent distress. HEENT: Eyes: Pupils equal and responsive to light and accommodation. Extraocular movements are intact. NECK: Supple without lymphadenopathy. CHEST: Lungs are clear to auscultation bilaterally without wheezes or rales. CARDIOVASCULAR: Regular rate. S1 and S2 are normal without murmurs, rubs, or gallops. ABDOMEN: Soft, nontender, and nondistended. Positive bowel sounds. No evidence of hepatosplenomegaly. Currently, no rebound or guarding noted. RECTAL: Refused. GENITAL: Refused. EXTREMITIES: Negative for clubbing, cyanosis, or edema. NEUROLOGIC: Cranial nerves II through XII are grossly intact without focal deficits. Current Medications Medications (Trade) Dose Ordered Sig/Cristofer Route PRN Reason Start Time Stop Time Status Last Admin Dose Admin Acetaminophen (Tylenol) 650 mg Q4H PRN GT fever 11/04/18 09:45 12/04/18 07:24 Albuterol/ Ipratropium (Albuterol/ Ipratropium) 3 ml Q4H PRN HHN Shortness of Breath 11/04/18 07:25 11/09/18 07:24 Cefepime HCl 2 gm/ Dextrose 110 ml @ 220 mls/hr Q12H IV 11/04/18 14:00 11/11/18 13:59 11/07/18 14:13 Escitalopram Oxalate (Lexapro) 10 mg DAILY GT 11/04/18 09:00 12/04/18 08:59 11/07/18 08:21 Haloperidol Lactate (Haldol) 5 mg Q6H PRN IM Agitation 11/06/18 11:00 12/06/18 10:59 Heparin Sodium (Porcine) (Heparin 5000 units/ml) 5,000 units EVERY 12 HOURS SUBQ 11/04/18 09:00 12/04/18 08:59 11/06/18 09:42 Levetiracetam (Keppra) 1,000 mg Q12HR GT 11/04/18 09:00 12/04/18 08:59 11/07/18 08:21 Morphine Sulfate (Morphine Sulfate) 2 mg Q4H PRN IVP Moderate Pain (Pain Scale 4-6) 11/04/18 07:26 11/11/18 07:25 Ondansetron HCl (Zofran) 4 mg Q6H PRN IVP Nausea & Vomiting 11/04/18 07:26 12/04/18 07:25 Phenazopyridine HCl (Pyridium) 100 mg DAILY PRN ORAL dysuria 11/04/18 09:44 12/04/18 09:43 Polyethylene Glycol (Miralax) 17 gm DAILYPRN PRN GT Constipation 11/04/18 09:45 12/04/18 07:24 Quetiapine Fumarate (SEROquel) 25 mg Q6H PRN GT agitation 11/04/18 09:45 12/04/18 07:23 11/06/18 09:41 Temazepam (Restoril) 15 mg HSPRN PRN GT Insomnia 11/04/18 21:00 11/11/18 20:59 Vancomycin HCl (Vanco rx to dose) 1 ea DAILY PRN MISC PER RX 11/04/18 13:00 12/04/18 12:59 Vancomycin HCl 750 mg/Dextrose 275 ml @ 275 mls/hr Q12H IVPB 11/05/18 16:00 11/10/18 15:59 11/07/18 04:44 Ruthy Sin M.D. Nov 07, 2018 16:48
--- NOTE | 2018-11-07 16:54 | NUR ---
NURSE NOTES: Patient refused for lab blood draw, MD Joyce notified.
--- NOTE | 2018-11-07 19:44 | NUR ---
HAND-OFF: Report given to JULIET Reyes.
--- NOTE | 2018-11-07 19:53 | NUR ---
NURSE NOTES: Received patient awake,resting in bed,tolerating his g-tube feeding well.
--- NOTE | 2018-11-07 19:53 | Internal Med Progress Note ---
Subjective Date of Service: Nov 07, 2018 Physician Name Manjinder Marley Attending Physician Ean Joyce MD Current Medications Medications (Trade) Dose Ordered Sig/Cristofer Route PRN Reason Start Time Stop Time Status Last Admin Dose Admin Acetaminophen (Tylenol) 650 mg Q4H PRN GT fever 11/04/18 09:45 12/04/18 07:24 Albuterol/ Ipratropium (Albuterol/ Ipratropium) 3 ml Q4H PRN HHN Shortness of Breath 11/04/18 07:25 11/09/18 07:24 Cefepime HCl 2 gm/ Dextrose 110 ml @ 220 mls/hr Q12H IV 11/04/18 14:00 11/11/18 13:59 11/07/18 14:13 Escitalopram Oxalate (Lexapro) 10 mg DAILY GT 11/04/18 09:00 12/04/18 08:59 11/07/18 08:21 Haloperidol Lactate (Haldol) 5 mg Q6H PRN IM Agitation 11/06/18 11:00 12/06/18 10:59 Heparin Sodium (Porcine) (Heparin 5000 units/ml) 5,000 units EVERY 12 HOURS SUBQ 11/04/18 09:00 12/04/18 08:59 11/06/18 09:42 Levetiracetam (Keppra) 1,000 mg Q12HR GT 11/04/18 09:00 12/04/18 08:59 11/07/18 08:21 Morphine Sulfate (Morphine Sulfate) 2 mg Q4H PRN IVP Moderate Pain (Pain Scale 4-6) 11/04/18 07:26 11/11/18 07:25 Ondansetron HCl (Zofran) 4 mg Q6H PRN IVP Nausea & Vomiting 11/04/18 07:26 12/04/18 07:25 Phenazopyridine HCl (Pyridium) 100 mg DAILY PRN ORAL dysuria 11/04/18 09:44 12/04/18 09:43 Polyethylene Glycol (Miralax) 17 gm DAILYPRN PRN GT Constipation 11/04/18 09:45 12/04/18 07:24 Quetiapine Fumarate (SEROquel) 25 mg Q6H PRN GT agitation 11/04/18 09:45 12/04/18 07:23 11/06/18 09:41 Temazepam (Restoril) 15 mg HSPRN PRN GT Insomnia 11/04/18 21:00 11/11/18 20:59 Allergies: Coded Allergies: DIVALPROEX SODIUM (Verified Allergy, Unknown, 06/01/18) PENICILLINS (Unverified Allergy, Unknown, 11/06/18) Tolerates cephalosporins ROS Limited/Unobtainable: Yes Subjective 58 YO M admitted with malfunction ferreira cath. Now hematuria and UTI. Cover for Int Med-dr Joyce Objective Last Vital Signs Date Time Temp Pulse Resp B/P (MAP) Pulse Ox O2 Delivery O2 Flow Rate FiO2 11/07/18 16:00 97.3 79 19 110/77 (88) 97 11/07/18 09:00 Room Air Intake and Output 11/06/18 11/07/18 19:00 07:00 Intake Total 1065 ml 580 ml Output Total 800 ml 550 ml Balance 265 ml 30 ml Free Water 130 ml IV Total 660 ml Tube Feeding 405 ml 450 ml Output Urine Total 800 ml 550 ml Objective General Appearance: mild distress, cachetic, thin EENT: PERRL/EOMI, normal ENT inspection Neck: non-tender, normal alignment, supple Cardiovascular: normal peripheral pulses, normal rate, regular rhythm, no gallop/murmur, no JVD Respiratory/Chest: chest wall non-tender, lungs clear, normal breath sounds, no respiratory distress, no accessory muscle use Abdomen: normal bowel sounds, non tender, soft, no organomegaly, no mass Extremities: normal range of motion 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
--- NOTE | 2018-11-07 20:02 | NUR ---
CASE MANAGEMENT: REVIEW 58/M BIBA FROM [facility] CC: DISLODGE KWOK CATH SI: SEPSIS . DEHYDRATION T 97.7 HR 109 RR 19 BP 99/62 SAT 96% ROOM AIR WBC 12.1 H/H 11.5/33.4 BUN 22 UA: LEUKOCYTE 3+ BACTERIA MANY IS: NS IVF BOLUS X1 LEVOFLOXACIN IV X1 VANCO IV X1 PATIENT ADMITTED TO MED/SURG UNIT 11/03/2018 DCP: PATIENT IS FROM [facility]
[2018-11-08] MEDS: Cefepime HCl 2 GM in D5W 110 ML IV SCH ×2 (03:45→13:44)
[2018-11-08 04:00] VITALS: BP 132/77
--- NOTE | 2018-11-08 07:26 | NUR ---
HAND-OFF: Report given to Fabi Almendarez RN.
--- NOTE | 2018-11-08 07:42 | NUR ---
NURSE NOTES: Patient alert x2, on room air, no sign of distress and shortness of breath; no sign of chest pain; ferreira drain yellow urine; IV RAC running NS TKO; Tube feeding Glucerna 1.2 45cc running, will flush as needed. Side rails up x2 and padded for seizure percussion, bed at lowest position and elevated 30 degree, breaks engaged. Left leg amputated below the knee. Will keep monitoring.
[2018-11-08] MEDS: levETIRAcetam 500mg/5ml Liquid GT SCH ×3 (08:05→20:48)
[2018-11-08] MEDS: Heparin 5000 units/ml inj SUBQ SCH ×2 (08:06→20:48)
--- NOTE | 2018-11-08 13:35 | Pulmonology Progress Note ---
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 symptomatic treatment [facility] Subjective ROS Limited/Unobtainable: No Constitutional: Reports: no symptoms Respiratory: Reports: no symptoms Allergies: Coded Allergies: DIVALPROEX SODIUM (Verified Allergy, Unknown, 06/01/18) PENICILLINS (Unverified Allergy, Unknown, 11/06/18) Tolerates cephalosporins Objective Last 24 Hour Vital Signs Date Time Temp Pulse Resp B/P (MAP) Pulse Ox O2 Delivery O2 Flow Rate FiO2 11/08/18 09:00 Room Air 11/08/18 04:00 97.9 106 18 132/77 (95) 96 11/07/18 20:57 Room Air 11/07/18 16:00 97.3 79 19 110/77 (88) 97 Intake and Output 11/07/18 11/08/18 19:00 07:00 Intake Total 555 ml 650 ml Balance 555 ml 650 ml Free Water 60 ml IV Total 110 ml Tube Feeding 495 ml 540 ml Objective General Appearance: WD/WN HEENT: normocephalic Respiratory/Chest: chest wall non-tender, lungs clear, normal breath sounds Breasts: no masses Cardiovascular: normal peripheral pulses, normal rate Abdomen: normal bowel sounds, soft, non tender Extremities: no cyanosis Skin: no rash General Appearance: WD/WN, cachetic HEENT: normocephalic Current Medications Medications (Trade) Dose Ordered Sig/Cristofer Route PRN Reason Start Time Stop Time Status Last Admin Dose Admin Acetaminophen (Tylenol) 650 mg Q4H PRN GT fever 11/04/18 09:45 12/04/18 07:24 Albuterol/ Ipratropium (Albuterol/ Ipratropium) 3 ml Q4H PRN HHN Shortness of Breath 11/04/18 07:25 11/09/18 07:24 Cefepime HCl 2 gm/ Dextrose 110 ml @ 220 mls/hr Q12H IV 11/04/18 14:00 11/11/18 13:59 11/08/18 03:45 Escitalopram Oxalate (Lexapro) 10 mg DAILY GT 11/04/18 09:00 12/04/18 08:59 11/08/18 08:05 Haloperidol Lactate (Haldol) 5 mg Q6H PRN IM Agitation 11/06/18 11:00 12/06/18 10:59 Heparin Sodium (Porcine) (Heparin 5000 units/ml) 5,000 units EVERY 12 HOURS SUBQ 11/04/18 09:00 12/04/18 08:59 11/07/18 20:29 Levetiracetam (Keppra) 1,000 mg Q12HR GT 11/04/18 09:00 12/04/18 08:59 11/07/18 20:28 Morphine Sulfate (Morphine Sulfate) 2 mg Q4H PRN IVP Moderate Pain (Pain Scale 4-6) 11/04/18 07:26 11/11/18 07:25 Ondansetron HCl (Zofran) 4 mg Q6H PRN IVP Nausea & Vomiting 11/04/18 07:26 12/04/18 07:25 Phenazopyridine HCl (Pyridium) 100 mg DAILY PRN ORAL dysuria 11/04/18 09:44 12/04/18 09:43 Polyethylene Glycol (Miralax) 17 gm DAILYPRN PRN GT Constipation 11/04/18 09:45 12/04/18 07:24 Quetiapine Fumarate (SEROquel) 25 mg Q6H PRN GT agitation 11/04/18 09:45 12/04/18 07:23 11/06/18 09:41 Temazepam (Restoril) 15 mg HSPRN PRN GT Insomnia 11/04/18 21:00 11/11/18 20:59 Dony Sanchez MD Nov 08, 2018 13:35
--- NOTE | 2018-11-08 14:39 | NUR ---
RD ASSESSMENT & RECOMMENDATIONS SEE CARE ACTIVITY FOR COMPLETE ASSESSMENT DAILY ESTIMATED NEEDS: Needs based on Underweight, DM, 55 30-35 kcals/kg 5150-6194 total kcals 1-1.5 g protein/kg 55-83 g total protein 25-30 mL/kg 4032-7012 total fluid mLs NUTRITION DIAGNOSIS: *Swallowing difficulty r/t dysphagia as evidenced by pt is PEG dep for all nutritional needs. *Increased kcal and protein needs r/t underweight status as evidenced by pt is 70% IBW, w/ generalized severe wasting. CURRENT TF:Glucerna 1.2 @45ml ENTERAL NUTRITION RECOMMENDATIONS: Glucerna 1.2 @60ml x24 hrs to provide 1440ml, 1728 kcal, 86g prot, 1159ml free fluid - Rec to increase RATE to 60ml/hr to better meet est kcal/prot needs - Flush per MD/ HOB over 30 degrees ADDITIONAL RECOMMENDATIONS: 1) Monitor lytes closely w/ TF / replete as needed 2) RECALIBRATE BED SCALE: PER SNF: Ht of 73 inches, Wt 119# (10/25) 3) Monitor BG, need for iss-> Last BG 200 . .
--- NOTE | 2018-11-08 15:29 | NUR ---
*-* INSURANCE *-* CLINICALS,REVIEWS AND INTERQUAL FAXED TO: [facility] [employer] SALES MANAGER: MARIS Valle#: [id number] F#: [phone] PLEASE FAX CLINICALS TO ABOVE #
--- NOTE | 2018-11-08 15:56 | Infectious Diseases Prog Note ---
Assessment/Plan Assessment/Plan Assessment: Sepsis-likely 2ry to UTI -u/a wbc tnct, nit neg, leuk +3; ucx Serratia marcescens, probable AMp-C (R Ancef, Ceftazidime, Levo, nitro; S Cefepime, ceftriaxone); repaet ucx 11/04 20K MRSA, <10k GNR, achromobacter xylodixans mixed gram positive (colonizers) -CXR: Normal chest x-ray. -Bcx nTD Afebrile Leukocytosis, SP hematuria vascular dementia Dm duodenal ulcer CVA MDD seizures disorder s/p L leg BKA dysphagia s/p J-tube (w/ hx of malfunction and replacement on 07/2018) SNF resident Plan: -Continue empiric Cefepime #6/7 for UTI -11/06 SP IV Vancomycin # 5 -11/03 SP Levaquin x1 -f/u cx -Monitor CBC/CMP, temperatures -J tube care -aspiration precautions Thank you for this consultation. Will continue to follow along with you. Discussed with RN. Subjective Allergies: Coded Allergies: DIVALPROEX SODIUM (Verified Allergy, Unknown, 06/01/18) PENICILLINS (Unverified Allergy, Unknown, 11/06/18) Tolerates cephalosporins Subjective afebrile no leukocytosis Bcx NTD Objective Vital Signs Last 24 Hour Vital Signs Date Time Temp Pulse Resp B/P (MAP) Pulse Ox O2 Delivery O2 Flow Rate FiO2 11/08/18 09:00 Room Air 11/08/18 04:00 97.9 106 18 132/77 (95) 96 11/07/18 20:57 Room Air 11/07/18 16:00 97.3 79 19 110/77 (88) 97 Height (Feet): 5 Height (Inches): 10.00 Weight (Pounds): 128 Objective GENERAL: The patient is a well-developed, well-nourished, nonverbal white male, in no apparent distress. HEENT: Eyes: Pupils equal and responsive to light and accommodation. Extraocular movements are intact. NECK: Supple without lymphadenopathy. CHEST: Lungs are clear to auscultation bilaterally without wheezes or rales. CARDIOVASCULAR: Regular rate. S1 and S2 are normal without murmurs, rubs, or gallops. ABDOMEN: Soft, nontender, and nondistended. Positive bowel sounds. No evidence of hepatosplenomegaly. Currently, no rebound or guarding noted. RECTAL: Refused. GENITAL: Refused. EXTREMITIES: Negative for clubbing, cyanosis, or edema. NEUROLOGIC: Cranial nerves II through XII are grossly intact without focal deficits. Current Medications Medications (Trade) Dose Ordered Sig/Cristofer Route PRN Reason Start Time Stop Time Status Last Admin Dose Admin Acetaminophen (Tylenol) 650 mg Q4H PRN GT fever 11/04/18 09:45 12/04/18 07:24 Albuterol/ Ipratropium (Albuterol/ Ipratropium) 3 ml Q4H PRN HHN Shortness of Breath 11/04/18 07:25 11/09/18 07:24 Cefepime HCl 2 gm/ Dextrose 110 ml @ 220 mls/hr Q12H IV 11/04/18 14:00 11/11/18 13:59 11/08/18 13:44 Escitalopram Oxalate (Lexapro) 10 mg DAILY GT 11/04/18 09:00 12/04/18 08:59 11/08/18 08:05 Haloperidol Lactate (Haldol) 5 mg Q6H PRN IM Agitation 11/06/18 11:00 12/06/18 10:59 Heparin Sodium (Porcine) (Heparin 5000 units/ml) 5,000 units EVERY 12 HOURS SUBQ 11/04/18 09:00 12/04/18 08:59 11/07/18 20:29 Levetiracetam (Keppra) 1,000 mg Q12HR GT 11/04/18 09:00 12/04/18 08:59 11/07/18 20:28 Morphine Sulfate (Morphine Sulfate) 2 mg Q4H PRN IVP Moderate Pain (Pain Scale 4-6) 11/04/18 07:26 11/11/18 07:25 Ondansetron HCl (Zofran) 4 mg Q6H PRN IVP Nausea & Vomiting 11/04/18 07:26 12/04/18 07:25 Phenazopyridine HCl (Pyridium) 100 mg DAILY PRN ORAL dysuria 11/04/18 09:44 12/04/18 09:43 Polyethylene Glycol (Miralax) 17 gm DAILYPRN PRN GT Constipation 11/04/18 09:45 12/04/18 07:24 Quetiapine Fumarate (SEROquel) 25 mg Q6H PRN GT agitation 11/04/18 09:45 12/04/18 07:23 11/06/18 09:41 Temazepam (Restoril) 15 mg HSPRN PRN GT Insomnia 11/04/18 21:00 11/11/18 20:59 Ruthy Sin M.D. Nov 08, 2018 15:56
--- NOTE | 2018-11-08 19:02 | NUR ---
HAND-OFF: Report given to JULIET Reyes.
--- NOTE | 2018-11-08 19:37 | NUR ---
NURSE NOTES: Received patient comfortably resting in bed, tolerating his g-tube feeding well.
--- NOTE | 2018-11-08 20:09 | Internal Med Progress Note ---
Subjective Date of Service: Nov 08, 2018 Physician Name Manjinder Marley Attending Physician Ean Joyce MD Current Medications Medications (Trade) Dose Ordered Sig/Cristofer Route PRN Reason Start Time Stop Time Status Last Admin Dose Admin Acetaminophen (Tylenol) 650 mg Q4H PRN GT fever 11/04/18 09:45 12/04/18 07:24 Albuterol/ Ipratropium (Albuterol/ Ipratropium) 3 ml Q4H PRN HHN Shortness of Breath 11/04/18 07:25 11/09/18 07:24 Cefepime HCl 2 gm/ Dextrose 110 ml @ 220 mls/hr Q12H IV 11/04/18 14:00 11/11/18 13:59 11/08/18 13:44 Escitalopram Oxalate (Lexapro) 10 mg DAILY GT 11/04/18 09:00 12/04/18 08:59 11/08/18 08:05 Haloperidol Lactate (Haldol) 5 mg Q6H PRN IM Agitation 11/06/18 11:00 12/06/18 10:59 Heparin Sodium (Porcine) (Heparin 5000 units/ml) 5,000 units EVERY 12 HOURS SUBQ 11/04/18 09:00 12/04/18 08:59 11/07/18 20:29 Levetiracetam (Keppra) 1,000 mg Q12HR GT 11/04/18 09:00 12/04/18 08:59 11/07/18 20:28 Morphine Sulfate (Morphine Sulfate) 2 mg Q4H PRN IVP Moderate Pain (Pain Scale 4-6) 11/04/18 07:26 11/11/18 07:25 Ondansetron HCl (Zofran) 4 mg Q6H PRN IVP Nausea & Vomiting 11/04/18 07:26 12/04/18 07:25 Phenazopyridine HCl (Pyridium) 100 mg DAILY PRN ORAL dysuria 11/04/18 09:44 12/04/18 09:43 Polyethylene Glycol (Miralax) 17 gm DAILYPRN PRN GT Constipation 11/04/18 09:45 12/04/18 07:24 Quetiapine Fumarate (SEROquel) 25 mg Q6H PRN GT agitation 11/04/18 09:45 12/04/18 07:23 11/06/18 09:41 Temazepam (Restoril) 15 mg HSPRN PRN GT Insomnia 11/04/18 21:00 11/11/18 20:59 Allergies: Coded Allergies: DIVALPROEX SODIUM (Verified Allergy, Unknown, 06/01/18) PENICILLINS (Unverified Allergy, Unknown, 11/06/18) Tolerates cephalosporins ROS Limited/Unobtainable: Yes Subjective 58 YO M admitted with malfunction ferreira cath. Now hematuria and UTI. Cover for Int Med-dr Joyce Objective Last Vital Signs Date Time Temp Pulse Resp B/P (MAP) Pulse Ox O2 Delivery O2 Flow Rate FiO2 11/08/18 09:00 Room Air 11/08/18 04:00 97.9 106 18 132/77 (95) 96 Intake and Output 11/07/18 11/08/18 19:00 07:00 Intake Total 555 ml 650 ml Balance 555 ml 650 ml Free Water 60 ml IV Total 110 ml Tube Feeding 495 ml 540 ml Objective General Appearance: mild distress, cachetic, thin EENT: PERRL/EOMI, normal ENT inspection Neck: non-tender, normal alignment, supple Cardiovascular: normal peripheral pulses, normal rate, regular rhythm, no gallop/murmur, no JVD Respiratory/Chest: chest wall non-tender, lungs clear, normal breath sounds, no respiratory distress, no accessory muscle use Abdomen: normal bowel sounds, non tender, soft, no organomegaly, no mass Extremities: normal range of motion 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
[2018-11-09 00:06] VITALS: BP 109/65
[2018-11-09] MEDS: Cefepime HCl 2 GM in D5W 110 ML IV SCH ×2 (01:56→13:22)
[2018-11-09 04:00] VITALS: BP 131/69
--- NOTE | 2018-11-09 07:22 | NUR ---
HAND-OFF: Report given to Frances Edwards RN.
--- NOTE | 2018-11-09 07:32 | NUR ---
NURSE NOTES: pt in bed with no sob nor in any form of distress noted. breathing regular and unlabored. denies any pain at this time. Remains calm in bed with no behavior issue. will continue to monitor
[2018-11-09 08:00] VITALS: BP 110/69
[2018-11-09] MEDS: levETIRAcetam 500mg/5ml Liquid GT SCH (08:26)
[2018-11-09] MEDS: Heparin 5000 units/ml inj SUBQ SCH (08:33)
[2018-11-09 12:00] VITALS: BP 116/71
--- NOTE | 2018-11-09 14:53 | NUR ---
*-* DISCAHRGE PLANNED *-* PATIENT IS DISCHARGED TO: REHAB ON [facility] ROOM# 3-A SKILLED T:[phone] FOR NURSE TO NURSE REPORT [facility] HAS BEEN ARRANGED FOR CURRENCY EXCHANGE SPECIALIST AT [phone]
--- NOTE | 2018-11-09 15:06 | Pulmonology Progress Note ---
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 symptomatic treatment dc to custodial Subjective ROS Limited/Unobtainable: No Constitutional: Reports: no symptoms HEENT: Repors: no symptoms Respiratory: Reports: no symptoms Allergies: Coded Allergies: DIVALPROEX SODIUM (Verified Allergy, Unknown, 06/01/18) PENICILLINS (Unverified Allergy, Unknown, 11/06/18) Tolerates cephalosporins Objective Last 24 Hour Vital Signs Date Time Temp Pulse Resp B/P (MAP) Pulse Ox O2 Delivery O2 Flow Rate FiO2 11/09/18 12:00 97.6 82 20 116/71 (86) 100 11/09/18 09:34 Room Air 11/09/18 08:00 97.2 86 18 110/69 (83) 100 11/09/18 04:00 97.4 76 16 131/69 (89) 100 11/09/18 00:06 97.4 82 16 109/65 (80) 92 11/08/18 20:11 Room Air Intake and Output 11/08/18 11/09/18 19:00 07:00 Intake Total 540 ml 710 ml Output Total 500 ml Balance 40 ml 710 ml Free Water 60 ml IV Total 110 ml Tube Feeding 540 ml 540 ml Output Urine Total 500 ml # Bowel Movements 1 Objective General Appearance: WD/WN HEENT: normocephalic Respiratory/Chest: chest wall non-tender, lungs clear, normal breath sounds Breasts: no masses Cardiovascular: normal peripheral pulses, normal rate Abdomen: normal bowel sounds, soft, non tender Extremities: no cyanosis Skin: no rash Current Medications Medications (Trade) Dose Ordered Sig/Cristofer Route PRN Reason Start Time Stop Time Status Last Admin Dose Admin Acetaminophen (Tylenol) 650 mg Q4H PRN GT fever 11/04/18 09:45 12/04/18 07:24 Cefepime HCl 2 gm/ Dextrose 110 ml @ 220 mls/hr Q12H IV 11/04/18 14:00 11/11/18 13:59 11/09/18 13:22 Escitalopram Oxalate (Lexapro) 10 mg DAILY GT 11/04/18 09:00 12/04/18 08:59 11/09/18 08:27 Haloperidol Lactate (Haldol) 5 mg Q6H PRN IM Agitation 11/06/18 11:00 12/06/18 10:59 Heparin Sodium (Porcine) (Heparin 5000 units/ml) 5,000 units EVERY 12 HOURS SUBQ 11/04/18 09:00 12/04/18 08:59 11/09/18 08:33 Levetiracetam (Keppra) 1,000 mg Q12HR GT 11/04/18 09:00 12/04/18 08:59 11/09/18 08:26 Morphine Sulfate (Morphine Sulfate) 2 mg Q4H PRN IVP Moderate Pain (Pain Scale 4-6) 11/04/18 07:26 11/11/18 07:25 Ondansetron HCl (Zofran) 4 mg Q6H PRN IVP Nausea & Vomiting 11/04/18 07:26 12/04/18 07:25 Phenazopyridine HCl (Pyridium) 100 mg DAILY PRN ORAL dysuria 11/04/18 09:44 12/04/18 09:43 Polyethylene Glycol (Miralax) 17 gm DAILYPRN PRN GT Constipation 11/04/18 09:45 12/04/18 07:24 Quetiapine Fumarate (SEROquel) 25 mg Q6H PRN GT agitation 11/04/18 09:45 12/04/18 07:23 11/06/18 09:41 Temazepam (Restoril) 15 mg HSPRN PRN GT Insomnia 11/04/18 21:00 11/11/18 20:59 Dony Sanchez MD Nov 09, 2018 15:06
[2018-11-09 16:00] VITALS: BP 106/64
--- NOTE | 2018-11-09 17:46 | NUR ---
NURSE NOTES: pt discharged to [facility] picked up by ambulance with stable condition. Iv heplock removed and covered with gauze and taped. Flushed GT and patent. pt will be discharged with ferreira catheter on per Dr. richard. cleaned pt and kept comfortable. All discharge report given to Cherrie and verbalized understanding.
[2018-11-09] MEDS ORDERED: NS 275ml ONE (17:49)
[2018-11-09] MEDS ORDERED: Sterile Water Irrig 1000ml IRRIG ONE (17:49)
--- NOTE | 2018-11-09 18:20 | Internal Med Progress Note ---
Subjective Physician Name Ean Joyce Attending Physician Ean Joyce MD Allergies: Coded Allergies: DIVALPROEX SODIUM (Verified Allergy, Unknown, 06/01/18) PENICILLINS (Unverified Allergy, Unknown, 11/06/18) Tolerates cephalosporins Subjective Awake, alert, responsive, no chest pain, no shortness of breath. Objective Last Vital Signs Date Time Temp Pulse Resp B/P (MAP) Pulse Ox O2 Delivery O2 Flow Rate FiO2 11/09/18 16:00 97.4 79 20 106/64 (78) 100 11/09/18 09:34 Room Air Intake and Output 11/08/18 11/09/18 19:00 07:00 Intake Total 540 ml 710 ml Output Total 500 ml Balance 40 ml 710 ml Free Water 60 ml IV Total 110 ml Tube Feeding 540 ml 540 ml Output Urine Total 500 ml # Bowel Movements 1 Objective General: No acute distress, awake and alert HEENT: NCAT, sclera anicteric, PERRL, EOMI, poor dentition. Neck: Supple, no significant jugular venous distention, Lungs: Fair inspiratory effort, clear to auscultation bilaterally, no Wheeze or Rales. Heart: Regular rate and rhythm, normal S1/S2, no murmurs Abdomen: soft, nontender, nondistended. Normoactive bowel sounds, PEG site intact. : Vargas Cath. Extremities: No Cyanosis , clubbing or edema. Neuro: A&O x 3, Able to move all extremities Skin: warm, no rash. Assessment/Plan Assessment/Plan Sepsis-likely 2ry to UTI Leukocytosis, hematuria vascular dementia DM Type 2 Duodenal ulcer CVA MDD seizures disorder s/p L leg BKA Dysphagia s/p J-tube (w/ hx of malfunction and replacement on (07/2018) SNF resident Plan: -Abx: Cefepime -f/u cx -Monitor CBC/CMP, temperatures -J tube care -Aspiration precautions -DC planning to SNF. Ean Joyce MD Nov 09, 2018 18:20
--- NOTE | 2018-11-13 08:44 | Discharge Summary ---
Discharge Summary Discharge Summary _ DATE OF ADMISSION: 11/04/2018 DATE OF DISCHARGE: 11/09/2018 DISCHARGED BY: Dr. Joyce REASON FOR ADMISSION: 58 years old male with past medical history of multi-infarct dementia, seizure disorder, left lower extremity BKA, dysphagia, J-tube, diabetes mellitus, cerebrovascular disease, major depressive disorder, presented from the custodial facility, since he pulled out his Vargas and some bleeding noted. Upon evaluation patient was afebrile , but hypotensive and tachycardic. Lactic acid 1.9. Laboratory workup revealed leukocytosis and mild anemia. Chemistry showed azotemia . Troponin negative, EKG revealed sinus tachycardia, no acute ischemic changes Urinalysis revealed evidence of UTI. Chest x-ray demonstrated no acute cardiopulmonary pathology. Albumin low. In emergency department Vargas catheter was replaced. Patient was pancultured and started on fluid resuscitation and empiric antibiotics. CONSULTANTS: pulmonary Dr. Sanchez ID specialist Dr. Dodson psychiatrist [facility] COURSE: Patient admitted . IV fluids and empiric antibiotics continued. ID specialist was consulted. Urine culture revealed Serratia. Blood cultures were negative. Repeated urine culture showed mixed gram-positive organism, MRSA and Achromobacter. Antibiotic regimen was optimized as per ID specialist recommendation. Pyridium was provided for few days for comfort. Strict aspiration precautions were maintained. Tube feeding provided via J-tube Patient was able to tolerate tube feeding. [employer] recommendation regarding protein supplements implemented in plan of care. Renal parameters and electrolytes were closely monitored. Electrolytes corrected as needed. Nephrotoxins were avoided. Prior to discharge BUN from 22 down to 9. Prerenal azotemia was likely due to dehydration and sepsis and resolved with IV hydration. Initially noted mild hematuria was likely due to ureteral injury, secondary to pulling out a Vargas catheter. Hematuria resolved. Hemoglobin and hematocrit remained at baseline. Supplemental oxygen provided as needed to keep pulse oximetry above 92%. Pulmonary toilet was on standby. No evidence of respiratory insufficiency. Seizure precaution maintained. Keppra was continued. No evidence of seizure activity while in the hospital. Blood sugar was managed with sliding scale of insulin. DVT prophylaxis provided. Supportive care provided. Bowel regimen instituted. Psychiatric medication regimen was continued. Patient stabilized: hemodynamically stable , leukocytosis resolved. Patient was ready for transfer back to custodial [facility] for continuation of care FINAL DIAGNOSES: Sepsis likely secondary to UTI UTI with Serratia Encephalopathy due to metabolic factor or toxin Vascular dementia Cerebrovascular disease with history of CVA Hematuria, likely due to ureteral trauma Seizure disorder Dysphagia, feeding by J -tube (with history of malfunction and replacement 2017) Diabetes mellitus type 2 Status post left below-knee amputation Schizoaffective disorder Major depressive disorder DISCHARGE MEDICATIONS: See Medication Reconciliation list. DISCHARGE INSTRUCTIONS: Patient was discharged to the custodial facility. Follow up with medical doctor at the facility. I have been assigned to dictate discharge summary for this account. I was not involved in the patient's management. Claudia Keita MANAGER AUDIT Nov 13, 2018 08:44
== END 2018-11-09 17:50 | DRG 720 ==
LOC: EDBD 19:49 → EMR 20:30 → EDBEDREQ 11-04 12:41 → 4E 11-04 14:07
DX: A41.9 Sepsis, unspecified organism (principal); G93.49 Other encephalopathy; S37.39XA Other injury of urethra, initial encounter; R13.10 Dysphagia, unspecified; F25.9 Schizoaffective disorder, unspecified; F33.1 Major depressive disorder, recurrent, moderate; Z43.4 Encounter for attention to other artificial openings of digestive tract; N39.0 Urinary tract infection, site not specified; B96.89 Other specified bacterial agents as the cause of diseases classified elsewhere; F01.50 Vascular dementia, unspecified severity, without behavioral disturbance, psychotic disturbance, mood disturbance, and anxiety; Z86.73 Personal history of transient ischemic attack (TIA), and cerebral infarction without residual deficits; R31.9 Hematuria, unspecified; X58.XXXA Exposure to other specified factors, initial encounter; G40.909 Epilepsy, unspecified, not intractable, without status epilepticus; Z89.512 Acquired absence of left leg below knee; Z88.0 Allergy status to penicillin; Z88.8 Allergy status to other drugs, medicaments and biological substances; G30.9 Alzheimer's disease, unspecified; F02.80 Dementia in other diseases classified elsewhere, unspecified severity, without behavioral disturbance, psychotic disturbance, mood disturbance, and anxiety; E11.9 Type 2 diabetes mellitus without complications
CPT/HCPCS: 36415; 71045; 80048; 80053; 80202; 81003; 82550; 83605; 83735; 83880; 84484; 85025; 85610; 85730; 87040; 87081; 87086; 87181; 93005; 96360; 99285

== ENCOUNTER 2018-12-03 20:48 | Inpatient (IN) | payer MEDICAID ==
[~2018-12-03] VITALS: Ht 167.6 cm; Wt 57.3 kg
[~2018-12-03 20:48] MED LIST changes: +ATIVAN1 MG JT
[2018-12-03 21:05] VITALS: BP 112/72
--- NOTE | 2018-12-03 21:05 | NUR ---
ED Nurse Note: PT BIBA from longterm for GT replacement. Pt pulled GT out on November 27, told by AP that pt refused to have GT replaced until now. VSS aside from tachycardia noted around 130's.
[2018-12-03] MEDS ORDERED: Metoclopramide 10mg/2ml Inj IVP PRN (21:45)
[2018-12-03] MEDS ORDERED: Promethazine HCl 12.5 MG in NS 55 ML IV PRN (21:45)
[2018-12-03] MEDS ORDERED: Mylanta II UD 30ml ORAL PRN (21:45)
[2018-12-03] MEDS ORDERED: Morphine Sulfate 2mg/ml Inj(IV/IM USE ONLY) IVP PRN (21:45)
[2018-12-03] MEDS ORDERED: LORazepam Inj 2mg/ml 1ml IV PRN (21:45)
[2018-12-03] MEDS ORDERED: Miralax 17gm pkt ORAL PRN (21:45)
[2018-12-03] MEDS ORDERED: Nitroglycerin Subl 0.4mg tab SL PRN (21:45)
[2018-12-03] MEDS ORDERED: Promethazine HCl 25 MG in NS 55 ML IV PRN (21:45)
[2018-12-03 21:50] LABS: BASOPHILS % (AUTO) 1.1 % (0.0-2.0); HEMATOCRIT 46.9 % (42.0-52.0); HEMOGLOBIN 14.8 G/DL (14.2-18.0); LYMPHOCYTES % (AUTO) 12.8 % (20.0-45.0); MEAN CORPUSCULAR VOLUME 96 FL (80-99); MONOCYTES % (AUTO) 9.4 % (1.0-10.0); NEUTROPHILS % (AUTO) 76.6 % (45.0-75.0); PLATELET COUNT 332 K/UL (150-450); RED CELL DISTRIBUTION WIDTH 13.1 % (11.6-14.8); WHITE BLOOD COUNT 14.1 K/UL (4.8-10.8)
[2018-12-03 22:06] LABS: ANION GAP 19 mmol/L (5-15); BLOOD UREA NITROGEN 72 mg/dL (7-18); CALCIUM 11.4 MG/DL (8.5-10.1); CARBON DIOXIDE 24 MMOL/L (21-32); CHLORIDE 113 MMOL/L (98-107); CREATININE 1.1 MG/DL (0.55-1.30); POTASSIUM 3.9 MMOL/L (3.5-5.1); SODIUM 156 MMOL/L (136-145)
[2018-12-03 22:17] LABS: ALANINE AMINOTRANSFERASE 26 U/L (12-78); ALBUMIN 4.1 G/DL (3.4-5.0); ALBUMIN/GLOBULIN RATIO 0.7 (1.0-2.7); ALKALINE PHOSPHATASE 110 U/L (46-116); ASPARTATE AMINO TRANSFERASE 27 U/L (15-37); BILIRUBIN,TOTAL 1.3 MG/DL (0.2-1.0)
[2018-12-03 22:18] LABS: BILIRUBIN,DIRECT 0.2 MG/DL (0.0-0.3)
--- NOTE | 2018-12-03 23:27 | Emergency Room Report ---
History of Present Illness General Chief Complaint: Malfunctioning Gastric Tube Source: Medical Record Present Illness HPI Patient presents by paramedics from nursing facility Patient's feeding tube has been dislodged Patient requires this for feedings and medication Patient himself has underlying significant dementia History of present illness is limited secondary to this There was no reports of vomiting or diarrhea There was no reports of any trauma or fall It is unclear the specific timing of the feeding tube being dislodged however the stoma appears closed Allergies: Coded Allergies: DIVALPROEX SODIUM (Verified Allergy, Unknown, 06/01/18) PENICILLINS (Unverified Allergy, Unknown, 11/06/18) Tolerates cephalosporins Patient History Limited by: medical condition Past Medical History: see triage record Pertinent Family History: unable to obtain Reviewed Nursing Documentation: PMH: Agreed; PSxH: Agreed Nursing Documentation-PMH Past Medical History: No History, Except For Hx Cardiac Problems: No Hx Hypertension: Yes Hx Diabetes: Yes Hx Cancer: No Hx Gastrointestinal Problems: Yes - dysphagia,g-tube,constipation Hx Neurological Problems: Yes Hx Cerebrovascular Accident: Yes Hx Alzheimer's Disease: Yes - pt unable to provide hx coginitive impaired Hx Seizures: Yes Hx Aphasia: Yes - pt unable to provide hx coginitive impaired Review of Systems All Other Systems: limited - Other than the ones mentioned in the history of present illness all others are reviewed however they do stay limited due to the patient's mental status Physical Exam Vital Signs Date Time Temp Pulse Resp B/P (MAP) Pulse Ox O2 Delivery O2 Flow Rate FiO2 12/03/18 20:53 97.2 136 20 112/72 89 Room Air Sp02 EP Interpretation: reviewed, normal General Appearance: no apparent distress Head: normocephalic, atraumatic Eyes: bilateral eye PERRL, bilateral eye EOMI ENT: dry mucus membranes Neck: supple, thyroid normal Respiratory: lungs clear, no retraction, no accessory muscle use Cardiovascular #1: regular rate, rhythm Gastrointestinal: non tender, soft, other - Stoma is fully scabbed over and not patent Musculoskeletal: other - Below the knee amputations otherwise moving upper extremity without focal deficit Neurologic: responsive - To physical and verbal stimuli Skin: normal color, no rash, other - poor turgor Medical Decision Making Diagnostic Impression: Primary Impression: Malfunction of gastrostomy tube Additional Impressions: Dehydration Weakness ER Course Patient is a fairly complex patient with multiple differential to consideration including but not limited to cardiac cardiopulmonary and vascular emergencies Patient's blood work reveals elevated sodium level white blood cell count is also mildly elevated Patient shows signs of dehydration Further IV hydrated and requires inpatient care for further GI consultation Labs Test 12/03/18 21:32 White Blood Count 14.1 K/UL (4.8-10.8) Red Blood Count 4.90 M/UL (4.70-6.10) Hemoglobin 14.8 G/DL (14.2-18.0) Hematocrit 46.9 % (42.0-52.0) Mean Corpuscular Volume 96 FL (80-99) Mean Corpuscular Hemoglobin 30.2 PG (27.0-31.0) Mean Corpuscular Hemoglobin Concent 31.6 G/DL (32.0-36.0) Red Cell Distribution Width 13.1 % (11.6-14.8) Platelet Count 332 K/UL (150-450) Mean Platelet Volume 6.4 FL (6.5-10.1) Neutrophils (%) (Auto) 76.6 % (45.0-75.0) Lymphocytes (%) (Auto) 12.8 % (20.0-45.0) Monocytes (%) (Auto) 9.4 % (1.0-10.0) Eosinophils (%) (Auto) 0.0 % (0.0-3.0) Basophils (%) (Auto) 1.1 % (0.0-2.0) Sodium Level 156 MMOL/L (136-145) Potassium Level 3.9 MMOL/L (3.5-5.1) Chloride Level 113 MMOL/L (98-107) Carbon Dioxide Level 24 MMOL/L (21-32) Anion Gap 19 mmol/L (5-15) Blood Urea Nitrogen 72 mg/dL (7-18) Creatinine 1.1 MG/DL (0.55-1.30) Estimat Glomerular Filtration Rate > 60 mL/min (>60) Glucose Level 147 MG/DL (74-106) Calcium Level 11.4 MG/DL (8.5-10.1) Total Bilirubin 1.3 MG/DL (0.2-1.0) Direct Bilirubin 0.2 MG/DL (0.0-0.3) Aspartate Amino Transf (AST/SGOT) 27 U/L (15-37) Alanine Aminotransferase (ALT/SGPT) 26 U/L (12-78) Alkaline Phosphatase 110 U/L (46-116) Total Protein 10.0 G/DL (6.4-8.2) Albumin 4.1 G/DL (3.4-5.0) Globulin 5.9 g/dL Albumin/Globulin Ratio 0.7 (1.0-2.7) Rhythm Strip Diag. Results EP Interpretation: yes Rate: 60 Rhythm: NSR, no PVC's, no ectopy Last Vital Signs Date Time Temp Pulse Resp B/P (MAP) Pulse Ox O2 Delivery O2 Flow Rate FiO2 12/03/18 21:05 97.2 130 20 112/72 95 Room Air Status: improved Disposition: ADMITTED INPATIENT Condition: Serious Referrals: Dony Sanchez MD (PCP) Rodolfo Rivero 18, 2019 23:27
--- NOTE | 2018-12-03 23:35 | NUR ---
ED Nurse Note: Report given to JULIET Lopez. Current VSS. Showing no signs of acute distress. No belongings present. Pt brought up by farm technician.
[2018-12-04] MEDS: D5 1/2NS 1,000 ML IV SCH ×2 (01:36→12:06)
--- NOTE | 2018-12-04 03:00 | NUR ---
NURSE NOTES: Contacted Dr Joyce for continuance of home meds and for code status- Pt is listed as full code yet has a POLST on file for DNR/DNI. Waiting for a response, will report to am shift.
[2018-12-04 04:00] VITALS: BP 123/74
[2018-12-04 05:10] VITALS: BP 112/75
--- NOTE | 2018-12-04 07:44 | NUR ---
HAND-OFF: Report given to Melinda Jimenez RN.
--- NOTE | 2018-12-04 07:50 | NUR ---
NURSE NOTES: Received patient in bed,awake, verbal but patient refused to answer questions. ferreira intact, draining to gravity, IV intact,n o s/s of infiltration on IV site. On IVF of D5 1/2 NS @75cc/hr. Bed is in lowest position and locked. Side rails padded for seizure precaution. Patient refused v/s and RN explained the importance of following plan of care. But patient refused x3.Will continue plan of care.
--- NOTE | 2018-12-04 08:25 | NUR ---
NURSE NOTES: Received call from Dr. Joyce and clarified code status and received orders. Order read back and carried out. RN also relayed to Dr. Joyce that patient refused blood draw for labs. aware with no new order.
[2018-12-04] MEDS: Heparin 5000 units/ml inj SUBQ SCH ×2 (09:00→20:23)
[2018-12-04 09:10] VITALS: BP 113/75
--- NOTE | 2018-12-04 09:10 | NUR ---
NURSE NOTES: Able to take V/S and patient's pulse is 127. Dr. Joyce was paged and skin assessment done by wound care nurse and RN. Picture taken but unable to upload picture due to camera issue. Will follow up. Patient noted with sacrum with DTI and left hip redness, right heel redness, right ankle, foot redness.Will follow up with primary.
[2018-12-04] MEDS: Pantoprazole Inj IV SCH (09:17)
--- NOTE | 2018-12-04 11:02 | NUR ---
NEUROLOGY TECHCOURTROOM DEPUTY 58 Y/O MALE KIKE FROM [facility] TO [facility] CC:MALFUNCTIONING GT SI:DEHYDRATION . WEAKNESS VS: BP 109/76, P 136, T 97.2, RR 20, SpO2 89 WBC 14.1, Na 156, BUN 72, Ca 11.4, Total Bilirubin 1.3 IS:NS x1L IV D5 NS x1L IV ADMITTED TO MED/SURG DC PLAN; RETURN TO [facility]
--- NOTE | 2018-12-04 11:30 | NUR ---
NURSE NOTES: Patient refused blood sugar test and keeps on moving his arms and hands. RN explained the risks and benefits but patient refused to talk and blood sugar check x3. Will continue to monitor.
--- NOTE | 2018-12-04 11:44 | GI Initial Consult Note ---
History of Present Illness General Date patient seen: Dec 04, 2018 Time patient seen: 11:38 Reason for Hospitalization: Malfunctioning Gastric Tube Referring physician: TERELL BOSWELL Reason for Consultation: GT DISLODGEMENT Present Illness HPI Patient presents by paramedics from nursing facility Patient's feeding tube has been dislodged Patient requires this for feedings and medication Patient himself has underlying significant dementia History of present illness is limited secondary to this There was no reports of vomiting or diarrhea There was no reports of any trauma or fall It is unclear the specific timing of the feeding tube being dislodged however the stoma appears closed GI consulted for G-tube dislodgment. ROS limited, patient seen awake alert oriented no apparent distress with no active signs or symptoms of nausea or vomiting. GT site assessed; noted that the G-tube has been removed and the stoma has completely closed and scabbed. POLST reviewed and noted that the patient does not want any artificial feedings. Labs reviewed; white count of 14. No anemia. No transaminitis. Home Meds Active Scripts Levetiracetam (Keppra) 100 Mg/1 Ml Solution, 1000 MG GT Q12HR for 60 Days, #60 ML Prov:Dony Sanchez MD 06/22/18 Ceftriaxone Sodium (CEFTRIAXONE) 1 Gm Vial.port, 1 GM IV DAILY for 3 Days, VIAL Prov:Dony Sanchez MD 06/08/18 Levetiracetam (Keppra) 100 Mg/1 Ml Solution, 500 MG NG Q12HR for 30 Days, #30 ML Prov:Dony Sanchez MD 06/08/18 Midodrine (Midodrine HCl) 10 Mg Tablet, 10 MG ORAL Q8HR for 60 Days, TAB Prov:Dony Sanchez MD 06/08/18 Quetiapine Fumarate* (SEROQUEL*) 25 Mg Tablet, 25 MG ORAL Q6H PRN for 30 Days, TAB Prov:Dony Sanchez MD 06/08/18 Reported Medications Lorazepam* (ATIVAN*) 1 Mg Tablet, 1 MG JT Q4HR, TAB 11/04/18 Ondansetron* (ZOFRAN*) 4 Mg Tablet, 4 MG GT Q6H PRN for Nausea & Vomiting, TAB 07/24/18 Ondansetron Odt* (ZOFRAN ODT*) 8 Mg Tab.rapdis, 4 MG SL Q4HR PRN for Nausea & Vomiting, #30 TAB 07/24/18 Sennosides (SENNA) 8.6 Mg Tablet, 8.6 MG GT DAILY, TAB 07/24/18 Polyethylene Glycol 3350* (POLYETHYLENE GLYCOL 3350*) 17 Gm Powd.pack, 17 GM GT BEDTIME PRN for Constipation, PACKET 07/24/18 Hydrocodone Bit/Acetaminophen 5-325* (NOR[place] 5-325*) 1 Each Tablet, 1 TAB GT Q4H PRN for For Pain, TAB 0 Refills 07/24/18 Mag Hydrox/Al Hydrox/Simeth (ALUM-MAG HYDROXIDE-SIMETH LIQ) 360 Ml Oral.susp, 30 ML GT EVERY 6 HOURS, ML 07/24/18 Morphine 10mg/5ml Oral Soln* (Morphine 10mg/5ml Oral Soln*) 10 Mg/5 Ml Solution , 10 MG ORAL EVERY 4 HOURS PRN for For Pain, ML 0 Refills 07/24/18 Hyoscyamine Sulfate* (LEVSIN-SL*) 0.125 Mg Tab.subl, 0.125 MG SL EVERY 4 HOURS, #20 TAB 0 Refills 07/24/18 Heparin Sod (Porcine) (HEPARIN SODIUM*) 5 000/1 Ml Vial, 5000 UNITS SUBQ EVERY 12 HOURS, VIAL 07/24/18 Bisacodyl (BISACODYL) 10 Mg Supp.rect, 10 MG RC PRN, SUPP 07/24/18 Acetaminophen* (ACETAMINOPHEN 325MG TABLET*) 325 Mg Tablet, 650 MG JT Q4H PRN for Mild Pain/Temp > 100.5, TAB 07/24/18 Albuterol Sulfate (ALBUTEROL SULFATE) 0.63 Mg/3 Ml Vial.neb, 0.63 MG HHN Q4HR, VIAL 06/19/18 Midodrine (Midodrine HCl) 10 Mg Tablet, 15 MG GT THREE TIMES A DAY, TAB 06/19/18 Olanzapine* (ZYPREXA*) 10 Mg Tablet, 10 MG GT DAILY, #30 TAB 0 Refills 06/01/18 Insulin Aspart* (NOVOLOG*) 100 Unit/1 Ml Insuln.pen, 0 SUBQ, #1 EA 0 Refills 06/01/18 Ferrous Fumarate (FERROUS FUMARATE) 324 Mg Tablet, 324 MG PO, TAB 06/01/18 Escitalopram Oxalate* (LEXAPRO*) 10 Mg Tablet, 10 MG GT DAILY, TAB 06/01/18 Med list reviewed/reconciled: Yes Allergies: Coded Allergies: DIVALPROEX SODIUM (Verified Allergy, Unknown, 06/01/18) PENICILLINS (Unverified Allergy, Unknown, 11/06/18) Tolerates cephalosporins Patient History Limited by: medical condition History Provided By: Medical Record PMH Narrative Limited by: medical condition Past Medical History: see triage record Pertinent Family History: unable to obtain Reviewed Nursing Documentation: PMH: Agreed; PSxH: Agreed Nursing Documentation-PMH Past Medical History: No History, Except For Hx Cardiac Problems: No Hx Hypertension: Yes Hx Diabetes: Yes Hx Cancer: No Hx Gastrointestinal Problems: Yes - dysphagia,g-tube,constipation Hx Neurological Problems: Yes Hx Cerebrovascular Accident: Yes Hx Alzheimer's Disease: Yes - pt unable to provide hx cognitive impaired Hx Seizures: Yes Hx Aphasia: Yes - pt unable to provide hx coginitive impaired Social History: Denies: smoking, alcohol use, drug use, other Review of Systems All Other Systems: limited Physical Exam Vital Signs Date Time Temp Pulse Resp B/P (MAP) Pulse Ox O2 Delivery O2 Flow Rate FiO2 12/03/18 20:53 97.2 136 20 112/72 89 Room Air Sp02 EP Interpretation: reviewed, normal Labs Laboratory Tests Test 12/03/18 21:32 White Blood Count 14.1 K/UL (4.8-10.8) H Red Blood Count 4.90 M/UL (4.70-6.10) Hemoglobin 14.8 G/DL (14.2-18.0) Hematocrit 46.9 % (42.0-52.0) Mean Corpuscular Volume 96 FL (80-99) Mean Corpuscular Hemoglobin 30.2 PG (27.0-31.0) Mean Corpuscular Hemoglobin Concent 31.6 G/DL (32.0-36.0) L Red Cell Distribution Width 13.1 % (11.6-14.8) Platelet Count 332 K/UL (150-450) Mean Platelet Volume 6.4 FL (6.5-10.1) L Neutrophils (%) (Auto) 76.6 % (45.0-75.0) H Lymphocytes (%) (Auto) 12.8 % (20.0-45.0) L Monocytes (%) (Auto) 9.4 % (1.0-10.0) Eosinophils (%) (Auto) 0.0 % (0.0-3.0) Basophils (%) (Auto) 1.1 % (0.0-2.0) Sodium Level 156 MMOL/L (136-145) H Potassium Level 3.9 MMOL/L (3.5-5.1) Chloride Level 113 MMOL/L (98-107) H Carbon Dioxide Level 24 MMOL/L (21-32) Anion Gap 19 mmol/L (5-15) H Blood Urea Nitrogen 72 mg/dL (7-18) H Creatinine 1.1 MG/DL (0.55-1.30) Estimat Glomerular Filtration Rate > 60 mL/min (>60) Glucose Level 147 MG/DL (74-106) H Calcium Level 11.4 MG/DL (8.5-10.1) H Total Bilirubin 1.3 MG/DL (0.2-1.0) H Direct Bilirubin 0.2 MG/DL (0.0-0.3) Aspartate Amino Transf (AST/SGOT) 27 U/L (15-37) Alanine Aminotransferase (ALT/SGPT) 26 U/L (12-78) Alkaline Phosphatase 110 U/L (46-116) Total Protein 10.0 G/DL (6.4-8.2) H Albumin 4.1 G/DL (3.4-5.0) Globulin 5.9 g/dL Albumin/Globulin Ratio 0.7 (1.0-2.7) L General Appearance: well appearing, no apparent distress, alert, thin Head: normocephalic EENT: PERRL/EOMI, normal ENT inspection Neck: supple Respiratory: normal breath sounds, no respiratory distress Cardiovascular: normal rate Gastrointestinal: normal inspection, non tender, soft, normal bowel sounds, non -distended Rectal: deferred Genitourinary: deferred Musculoskeletal: normal inspection, back normal Neurologic: alert, responsive, sensory intact Skin: normal inspection, normal color, no rash, warm/dry, palpation normal, well hydrated Lymphatic: normal inspection, no adenopathy Current Medications Current Medications Medications (Trade) Dose Ordered Sig/Cristofer Route PRN Reason Start Time Stop Time Status Last Admin Dose Admin Acetaminophen (Tylenol) 650 mg Q4H PRN ORAL fever 12/03/18 21:45 01/02/19 21:44 Al Hydroxide/Mg Hydroxide (Mylanta II) 30 ml Q6H PRN ORAL dyspepsia 12/03/18 21:45 01/02/19 21:44 Dextrose (Dextrose 50%) 25 ml Q30M PRN IV Hypoglycemia 12/03/18 21:45 01/02/19 21:44 Dextrose (Dextrose 50%) 50 ml Q30M PRN IV Hypoglycemia 12/03/18 21:45 01/02/19 21:44 Dextrose/Sodium Chloride 1,000 ml @ 75 mls/hr [id number] IV 12/03/18 21:45 01/02/19 21:44 12/04/18 01:36 Diphenhydramine HCl (Benadryl) 25 mg Q6H PRN ORAL Itching/Pruritis 12/03/18 21:45 01/02/19 21:44 Heparin Sodium (Porcine) (Heparin 5000 units/ml) 5,000 units EVERY 12 HOURS SUBQ 12/04/18 09:00 01/03/19 08:59 Lorazepam (Ativan 2mg/ml 1ml) 1 mg Q4H PRN IV agitation 12/03/18 21:45 12/10/18 21:44 Metoclopramide HCl (Reglan) 10 mg Q4H PRN IVP servere nausea 12/03/18 21:45 01/02/19 21:44 Morphine Sulfate (Morphine Sulfate) 2 mg Q4H PRN IVP severe Pain (Pain Scale 7-10) 12/03/18 21:45 12/10/18 21:44 Nitroglycerin (Ntg) 0.4 mg Q5M X 3 DOSES PRN SL Prn Chest Pain 12/03/18 21:45 01/02/19 21:44 Ondansetron HCl (Zofran) 4 mg Q6H PRN IVP Nausea & Vomiting 12/03/18 21:45 01/02/19 21:44 Pantoprazole (Protonix) 40 mg DAILY IV 12/04/18 09:00 01/03/19 08:59 12/04/18 09:17 Polyethylene Glycol (Miralax) 17 gm HSPRN PRN ORAL Constipation 12/03/18 21:45 01/02/19 21:44 Promethazine HCl 25 mg/Sodium Chloride 56 ml @ 110 mls/hr Q6H PRN IV Refractory N/V 12/03/18 21:45 01/02/19 21:44 Temazepam (Restoril) 15 mg HSPRN PRN ORAL Insomnia 12/03/18 21:45 12/10/18 21:44 GI: Plan Problems: (1) Severe malnutrition (2) Encounter for PEG (percutaneous endoscopic gastrostomy) (3) Diabetes mellitus type 2, insulin dependent (4) Feeding by G-tube (5) Dementia, multi-infarct (6) Weakness (7) Dehydration (8) Malfunction of gastrostomy tube Plan POLST reviewed noted with no artificial feeding Possible PEG tomorrow, will follow up ST evaluation ordered Maintain n.p.o. plus IV fluids PPI IV p.o. hydration Prophylactic antibiotics We will follow with additional recommendations Discussed with Dr. Mcneil. Thank you for this patient referral, we will follow. The patient was seen and examined at bedside and all new and available data was reviewed in the patients chart. I agree with the above findings, impression and plan. (Patient seen earlier today. Signature stamp does not reflect patient encounter time.). - MD Sienna Noe,Kelley-Chris RAJAN Dec 04, 2018 11:44
[2018-12-04 12:00] VITALS: BP 104/76
--- NOTE | 2018-12-04 13:27 | Consultation ---
History of Present Illness General Chief Complaint: Malfunctioning Gastric Tube Referring physician: TERELL BOSWELL Reason for Consultation: inpatient management Present Illness HPI 58 year old with CVA, PEG, shelter resident pulled his PEG, nursing facility send him to hospital to get Feeding tube. Allergies: Coded Allergies: DIVALPROEX SODIUM (Verified Allergy, Unknown, 06/01/18) PENICILLINS (Unverified Allergy, Unknown, 11/06/18) Tolerates cephalosporins Medication History Scheduled Albuterol Sulfate (Albuterol Sulfate), 0.63 MG HHN Q4HR, (Reported) Bisacodyl (Bisacodyl), 10 MG RC PRN, (Reported) Ceftriaxone Sodium (Ceftriaxone), 1 GM IV DAILY Escitalopram Oxalate* (Lexapro*), 10 MG GT DAILY, (Reported) Heparin Sod (Porcine) (Heparin Sodium*), 5,000 UNITS SUBQ EVERY 12 HOURS, ( Reported) Hyoscyamine Sulfate* (Levsin-Sl*), 0.125 MG SL EVERY 4 HOURS, (Reported) Levetiracetam (Keppra), 500 MG NG Q12HR Levetiracetam (Keppra), 1,000 MG GT Q12HR Lorazepam* (Ativan*), 1 MG JT Q4HR, (Reported) Mag Hydrox/Al Hydrox/Simeth (Alum-Mag Hydroxide-Simeth Liq), 30 ML GT EVERY 6 HOURS, (Reported) Midodrine (Midodrine HCl), 10 MG ORAL Q8HR Midodrine (Midodrine HCl), 15 MG GT THREE TIMES A DAY, (Reported) Olanzapine* (Zyprexa*), 10 MG GT DAILY, (Reported) Sennosides (Senna), 8.6 MG GT DAILY, (Reported) Scheduled PRN Acetaminophen* (Acetaminophen 325MG Tablet*), 650 MG JT Q4H PRN for Mild Pain/ Temp > 100.5, (Reported) Hydrocodone Bit/Acetaminophen 5-325* ([place] 5-325*), 1 TAB GT Q4H PRN for For Pain, (Reported) Morphine 10mg/5ml Oral Soln* (Morphine 10mg/5ml Oral Soln*), 10 MG ORAL EVERY 4 HOURS PRN for For Pain, (Reported) Ondansetron Odt* (Zofran Odt*), 4 MG SL Q4HR PRN for Nausea & Vomiting, ( Reported) Ondansetron* (Zofran*), 4 MG GT Q6H PRN for Nausea & Vomiting, (Reported) Polyethylene Glycol 3350* (Polyethylene Glycol 3350*), 17 GM GT BEDTIME PRN for Constipation, (Reported) Quetiapine Fumarate* (Seroquel*), 25 MG ORAL Q6H PRN Miscellaneous Medications Ferrous Fumarate (Ferrous Fumarate), 324 MG PO, (Reported) Insulin Aspart* (Novolog*), 0 SUBQ, (Reported) Patient History Healthcare decision maker Sharif Harding Resuscitation status Do Not Resuscitate Advanced Directive on File No Past Medical/Surgical History Past Medical/Surgical History: (1) Diabetes mellitus type 2, insulin dependent (2) Schizoaffective disorder (3) History of left above knee amputation (4) Alzheimer's dementia (5) Feeding by G-tube (6) HTN (hypertension) (7) Seizure disorder Review of Systems All Other Systems: negative except mentioned in HPI Physical Exam General Appearance: cachetic Lines, tubes and drains: peripheral HEENT: normocephalic, atraumatic Neck: non-tender, supple Respiratory/Chest: chest wall non-tender, lungs clear Breasts: no masses Abdomen: normal bowel sounds, hyperactive bowel sounds Genitourinary/Rectal: normal rectal exam Extremities: non-tender Last 24 Hour Vital Signs Date Time Temp Pulse Resp B/P (MAP) Pulse Ox O2 Delivery O2 Flow Rate FiO2 12/04/18 12:00 99.6 122 20 104/76 (85) 95 12/04/18 09:10 99.2 127 20 113/75 (88) 95 12/04/18 09:00 Room Air 12/04/18 05:10 100.4 135 20 112/75 (87) 95 12/04/18 04:00 97.5 98 20 123/74 (90) 95 12/04/18 00:00 Room Air 12/03/18 23:40 98.8 110 23 109/76 94 Room Air 12/03/18 21:05 97.2 130 20 112/72 95 Room Air 12/03/18 20:53 97.2 136 20 112/72 89 Room Air Intake and Output 12/03/18 12/04/18 19:00 07:00 Intake Total 75 ml Output Total 550 ml Balance -475 ml Intake IV Total 75 ml Output Urine Total 550 ml # Voids 1 Laboratory Tests Test 12/03/18 21:32 White Blood Count 14.1 K/UL (4.8-10.8) H Red Blood Count 4.90 M/UL (4.70-6.10) Hemoglobin 14.8 G/DL (14.2-18.0) Hematocrit 46.9 % (42.0-52.0) Mean Corpuscular Volume 96 FL (80-99) Mean Corpuscular Hemoglobin 30.2 PG (27.0-31.0) Mean Corpuscular Hemoglobin Concent 31.6 G/DL (32.0-36.0) L Red Cell Distribution Width 13.1 % (11.6-14.8) Platelet Count 332 K/UL (150-450) Mean Platelet Volume 6.4 FL (6.5-10.1) L Neutrophils (%) (Auto) 76.6 % (45.0-75.0) H Lymphocytes (%) (Auto) 12.8 % (20.0-45.0) L Monocytes (%) (Auto) 9.4 % (1.0-10.0) Eosinophils (%) (Auto) 0.0 % (0.0-3.0) Basophils (%) (Auto) 1.1 % (0.0-2.0) Sodium Level 156 MMOL/L (136-145) H Potassium Level 3.9 MMOL/L (3.5-5.1) Chloride Level 113 MMOL/L (98-107) H Carbon Dioxide Level 24 MMOL/L (21-32) Anion Gap 19 mmol/L (5-15) H Blood Urea Nitrogen 72 mg/dL (7-18) H Creatinine 1.1 MG/DL (0.55-1.30) Estimat Glomerular Filtration Rate > 60 mL/min (>60) Glucose Level 147 MG/DL (74-106) H Calcium Level 11.4 MG/DL (8.5-10.1) H Total Bilirubin 1.3 MG/DL (0.2-1.0) H Direct Bilirubin 0.2 MG/DL (0.0-0.3) Aspartate Amino Transf (AST/SGOT) 27 U/L (15-37) Alanine Aminotransferase (ALT/SGPT) 26 U/L (12-78) Alkaline Phosphatase 110 U/L (46-116) Total Protein 10.0 G/DL (6.4-8.2) H Albumin 4.1 G/DL (3.4-5.0) Globulin 5.9 g/dL Albumin/Globulin Ratio 0.7 (1.0-2.7) L Height (Feet): 5 Height (Inches): 6.00 Weight (Pounds): 104 Medications Current Medications Medications (Trade) Dose Ordered Sig/Cristofer Route PRN Reason Start Time Stop Time Status Last Admin Dose Admin Acetaminophen (Tylenol) 650 mg Q4H PRN ORAL fever 12/03/18 21:45 01/02/19 21:44 Al Hydroxide/Mg Hydroxide (Mylanta II) 30 ml Q6H PRN ORAL dyspepsia 12/03/18 21:45 01/02/19 21:44 Dextrose (Dextrose 50%) 25 ml Q30M PRN IV Hypoglycemia 12/03/18 21:45 01/02/19 21:44 Dextrose (Dextrose 50%) 50 ml Q30M PRN IV Hypoglycemia 12/03/18 21:45 01/02/19 21:44 Dextrose/Sodium Chloride 1,000 ml @ 75 mls/hr [id number] IV 12/03/18 21:45 01/02/19 21:44 12/04/18 12:06 Diphenhydramine HCl (Benadryl) 25 mg Q6H PRN ORAL Itching/Pruritis 12/03/18 21:45 01/02/19 21:44 Heparin Sodium (Porcine) (Heparin 5000 units/ml) 5,000 units EVERY 12 HOURS SUBQ 12/04/18 09:00 01/03/19 08:59 Lorazepam (Ativan 2mg/ml 1ml) 1 mg Q4H PRN IV agitation 12/03/18 21:45 12/10/18 21:44 Metoclopramide HCl (Reglan) 10 mg Q4H PRN IVP servere nausea 12/03/18 21:45 01/02/19 21:44 Metoprolol Tartrate (Lopressor) 25 mg Q12HR ORAL 12/04/18 21:00 01/03/19 20:59 Morphine Sulfate (Morphine Sulfate) 2 mg Q4H PRN IVP severe Pain (Pain Scale 7-10) 12/03/18 21:45 12/10/18 21:44 Nitroglycerin (Ntg) 0.4 mg Q5M X 3 DOSES PRN SL Prn Chest Pain 12/03/18 21:45 01/02/19 21:44 Ondansetron HCl (Zofran) 4 mg Q6H PRN IVP Nausea & Vomiting 12/03/18 21:45 01/02/19 21:44 Pantoprazole (Protonix) 40 mg DAILY IV 12/04/18 09:00 01/03/19 08:59 12/04/18 09:17 Polyethylene Glycol (Miralax) 17 gm HSPRN PRN ORAL Constipation 12/03/18 21:45 01/02/19 21:44 Promethazine HCl 25 mg/Sodium Chloride 56 ml @ 110 mls/hr Q6H PRN IV Refractory N/V 12/03/18 21:45 01/02/19 21:44 Temazepam (Restoril) 15 mg HSPRN PRN ORAL Insomnia 12/03/18 21:45 12/10/18 21:44 Assessment/Plan Problem List: (1) Encounter for PEG (percutaneous endoscopic gastrostomy) ICD Codes: Z43.1 - Encounter for attention to gastrostomy SNOMED: 720380320, 913015734 (2) Encephalopathy due to metabolic factor or toxin SNOMED: 090366163 (3) Severe malnutrition ICD Codes: E43 - Unspecified severe protein-calorie malnutrition SNOMED: 20188744 (4) Malfunction of gastrostomy tube ICD Codes: K94.23 - Gastrostomy malfunction SNOMED: 347593812 (5) Diabetes mellitus type 2, insulin dependent ICD Codes: E11.9 - Type 2 diabetes mellitus without complications; Z79.4 - care home (current) use of insulin SNOMED: 501810227 (6) Schizoaffective disorder ICD Codes: F25.9 - Schizoaffective disorder, unspecified SNOMED: 36026315 (7) 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 ICD Codes: F01.50 - Vascular dementia without behavioral disturbance; I70.209 - Unspecified atherosclerosis of [place] arteries of extremities, unspecified extremity SNOMED: 342671224947169 (8) History of left above knee amputation ICD Codes: Z89.612 - Acquired absence of left leg above knee SNOMED: 396985829 Assessment/Plan npo Iv fluids GI evaluation dvt prophylaxis. Dony Sanchez MD Dec 04, 2018 13:27
--- NOTE | 2018-12-04 13:30 | NUR ---
NURSE NOTES: RN relayed to Chris who ordered EGD with possible biopsy and /or PEG that patient has an POLST and says no artificial feeding. RN recommend Chris to talk to patient and family again and Patient refused US, GT placement and ST eval. Chris put social service consult for bioethic.
--- NOTE | 2018-12-04 14:28 | NUR ---
Social Service Note Bioethics consult not required. ERIK spoke with patient's brother Sharif Smith [phone] who signed patient's POLST 06/2018 indicating DNR/DNI/ no artificial means of nutrition. Patient under [facility]. SW confirmed that brother would not want Gtube placement. Pending ST eval. Brother would like patient to return to SNF with hospice once medically appropriate. SW informed Chris [employer], Dr. Sanchez and Dr. Joyce. Will continue to be available as needed.
--- NOTE | 2018-12-04 14:34 | NUR ---
NURSE NOTES:WOUND CARE NOTES:Pt presented on admission with multiple pressure injuries. Pt is emaciated. R buttocks/Sacral DTPI noted .Site maroon and indurated with marginal erythema. Pt became agitated when minimally palpated.(L) 4cm x (W)3.2cm.Non-blanchable erythema periwound. Non-blanchable erythema without erythema or fluctuance L trochanter(L)1cm x (W)2.5cm. Non-Blanchable erythema without induration R trochanter (L)8cm x (W)6cm Non-blanchable erythema with fluctuance lateral R malleolus. (L)2.5cm x (W)2cm. Non-blanchable erythema without induration or fluctuance R achilles (L)1.3cm x (W)0.7cm. Non-blanchable erythema without induration or fluctuance lateral R foot (L)1cm x (W)1.2cm. Non-blanchable erythema with fluctuance R heel and Lateral aspect(L)1.4cm x (W)3cm. Tx.Plan:Apply Triad Paste to Sacrum /R Buttocks.Cover with Optifoam drsg .Change every 3 days and prn. Apply Cavilon Skin Barrier to R and L trochanters .Cover each site with Optifoam drsgs. Change every 7 days and PRN. Apply Cavilon Skin Barrier to red areas R foot (Achilles,Heel, lateral R foot and malleolus) .Cover each site with Optifoam drsgs .Change every 7 days and prn. Reposition at least every 2hours or as tolerated. Off-load heels with pillow. APM/MEEK mattress.
--- NOTE | 2018-12-04 14:48 | NUR ---
*-* INSURANCE *-* CLINICALS AND REVIEW FAXED TO: [facility] NCM: MARIS Sanchez P- [phone] f- [phone].... Addendum: 12/04/18 at 1452 by SWAPNIL FLETCHER *-* INSURANCE *-* CLINICALS AND REVIEW FAXED TO: HUSEYIN BOTELLO NCM: MARIS Sanchez P- [phone] f- [phone]....
--- NOTE | 2018-12-04 15:31 | NUR ---
RD ASSESSMENT & RECOMMENDATIONS SEE CARE ACTIVITY FOR COMPLETE ASSESSMENT DAILY ESTIMATED NEEDS: Needs based on wt loss, underweight/ 49.6kg 30-40 kcals/kg 7915-9090 total kcals 1-1.5 g protein/kg 50-75 g total protein 25-30 mL/kg 4825-9788 total fluid mLs NUTRITION DIAGNOSIS: *Swallowing difficulty r/t dysphagia as evidenced by h/o PEG dep, POLST now indicates no TF, currently NPO, PILOT CAN ROUTER eval pending. *Increased kcal and protein needs r/t underweight status, wt loss, wound healing as evidenced by pt is 63% IBW, w/ generalized severe wasting, possible recent significant wt loss of 10 lbs/8.4% wt loss in 1 month, admitted w/ multiple wounds, including DTI @ sacrum. CURRENT DIET:NPO PO DIET RECOMMENDATIONS: IF SAFE FOR PO -> LIBERALIZED REGULAR/ texture per PILOT CAN ROUTER ENTERAL NUTRITION RECOMMENDATIONS: CONSULT RD FOR TF IF PART OF POC ADDITIONAL RECOMMENDATIONS: 1) Calibrated bedscale wt, weekly wts- recent wt loss, underweight 2) Monitor POC- comfort measures, no TF per POLST at this time - pending PILOT CAN ROUTER eval 3) Wound healing- MVI x 1, Vit C 500mg QD, Demetri 1pkt BID
--- NOTE | 2018-12-04 15:35 | Consultation ---
History of Present Illness General Chief Complaint: Malfunctioning Gastric Tube Referring physician: TERELL BOSWELL Reason for Consultation: GT DISLODGEMENT Present Illness HPI This is a 58-year-old male with multiple medical morbidities who is a care home resident that was transferred to [facility] for evaluation of dislodged gastric feeding tube. On initial evaluation patient was identified to have a leukocytosis, abnormal labs, low-grade fevers, tachycardia. Patient' s prior G-tube site was inspected and noted to be near completely closed and no replacement she is to be placed by gastroenterology at that time. Patient also noted to have a wound upon admission therefore surgery was called to evaluate and assist with care and management. Allergies: Coded Allergies: DIVALPROEX SODIUM (Verified Allergy, Unknown, 06/01/18) PENICILLINS (Unverified Allergy, Unknown, 11/06/18) Tolerates cephalosporins Medication History Scheduled Albuterol Sulfate (Albuterol Sulfate), 0.63 MG HHN Q4HR, (Reported) Bisacodyl (Bisacodyl), 10 MG RC PRN, (Reported) Ceftriaxone Sodium (Ceftriaxone), 1 GM IV DAILY Escitalopram Oxalate* (Lexapro*), 10 MG GT DAILY, (Reported) Heparin Sod (Porcine) (Heparin Sodium*), 5,000 UNITS SUBQ EVERY 12 HOURS, ( Reported) Hyoscyamine Sulfate* (Levsin-Sl*), 0.125 MG SL EVERY 4 HOURS, (Reported) Levetiracetam (Keppra), 500 MG NG Q12HR Levetiracetam (Keppra), 1,000 MG GT Q12HR Lorazepam* (Ativan*), 1 MG JT Q4HR, (Reported) Mag Hydrox/Al Hydrox/Simeth (Alum-Mag Hydroxide-Simeth Liq), 30 ML GT EVERY 6 HOURS, (Reported) Midodrine (Midodrine HCl), 10 MG ORAL Q8HR Midodrine (Midodrine HCl), 15 MG GT THREE TIMES A DAY, (Reported) Olanzapine* (Zyprexa*), 10 MG GT DAILY, (Reported) Sennosides (Senna), 8.6 MG GT DAILY, (Reported) Scheduled PRN Acetaminophen* (Acetaminophen 325MG Tablet*), 650 MG JT Q4H PRN for Mild Pain/ Temp > 100.5, (Reported) Hydrocodone Bit/Acetaminophen 5-325* ([place] 5-325*), 1 TAB GT Q4H PRN for For Pain, (Reported) Morphine 10mg/5ml Oral Soln* (Morphine 10mg/5ml Oral Soln*), 10 MG ORAL EVERY 4 HOURS PRN for For Pain, (Reported) Ondansetron Odt* (Zofran Odt*), 4 MG SL Q4HR PRN for Nausea & Vomiting, ( Reported) Ondansetron* (Zofran*), 4 MG GT Q6H PRN for Nausea & Vomiting, (Reported) Polyethylene Glycol 3350* (Polyethylene Glycol 3350*), 17 GM GT BEDTIME PRN for Constipation, (Reported) Quetiapine Fumarate* (Seroquel*), 25 MG ORAL Q6H PRN Miscellaneous Medications Ferrous Fumarate (Ferrous Fumarate), 324 MG PO, (Reported) Insulin Aspart* (Novolog*), 0 SUBQ, (Reported) Patient History Limited by: medical condition History Provided By: Medical Record, PMD Healthcare decision maker Sharif Harding Resuscitation status Do Not Resuscitate Advanced Directive on File No Past Medical/Surgical History Past Medical/Surgical History: (1) Hematuria (2) Malfunction of gastrostomy tube (3) Severe malnutrition (4) Encounter for PEG (percutaneous endoscopic gastrostomy) (5) Dehydration (6) Weakness (7) Dementia, multi-infarct (8) Septic shock (9) Cellulitis (10) Seizure disorder (11) ATN (acute tubular necrosis) (12) HTN (hypertension) (13) Cerebral vascular disease (14) Feeding by G-tube (15) Alzheimer's dementia (16) Encephalopathy due to metabolic factor or toxin (17) History of left above knee amputation (18) 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 (19) Schizoaffective disorder (20) Diabetes mellitus type 2, insulin dependent Review of Systems ROS Narrative Cannot Obtain given patient's medical condition Physical Exam General Appearance: no apparent distress Lines, tubes and drains: other HEENT: atraumatic Neck: normal inspection Respiratory/Chest: no respiratory distress, no accessory muscle use Cardiovascular/Chest: tachycardia Abdomen: soft, distended, other - prior feeding tube site near closed Genitourinary/Rectal: other Extremities: other Skin Exam: other Last 24 Hour Vital Signs Date Time Temp Pulse Resp B/P (MAP) Pulse Ox O2 Delivery O2 Flow Rate FiO2 12/04/18 12:00 99.6 122 20 104/76 (85) 95 12/04/18 09:10 99.2 127 20 113/75 (88) 95 12/04/18 09:00 Room Air 12/04/18 05:10 100.4 135 20 112/75 (87) 95 12/04/18 04:00 97.5 98 20 123/74 (90) 95 12/04/18 00:00 Room Air 12/03/18 23:40 98.8 110 23 109/76 94 Room Air 12/03/18 21:05 97.2 130 20 112/72 95 Room Air 12/03/18 20:53 97.2 136 20 112/72 89 Room Air Intake and Output 12/03/18 12/04/18 19:00 07:00 Intake Total 150 ml Output Total 550 ml Balance -400 ml Intake IV Total 150 ml Output Urine Total 550 ml # Voids 1 Laboratory Tests Test 12/03/18 21:32 White Blood Count 14.1 K/UL (4.8-10.8) H Red Blood Count 4.90 M/UL (4.70-6.10) Hemoglobin 14.8 G/DL (14.2-18.0) Hematocrit 46.9 % (42.0-52.0) Mean Corpuscular Volume 96 FL (80-99) Mean Corpuscular Hemoglobin 30.2 PG (27.0-31.0) Mean Corpuscular Hemoglobin Concent 31.6 G/DL (32.0-36.0) L Red Cell Distribution Width 13.1 % (11.6-14.8) Platelet Count 332 K/UL (150-450) Mean Platelet Volume 6.4 FL (6.5-10.1) L Neutrophils (%) (Auto) 76.6 % (45.0-75.0) H Lymphocytes (%) (Auto) 12.8 % (20.0-45.0) L Monocytes (%) (Auto) 9.4 % (1.0-10.0) Eosinophils (%) (Auto) 0.0 % (0.0-3.0) Basophils (%) (Auto) 1.1 % (0.0-2.0) Sodium Level 156 MMOL/L (136-145) H Potassium Level 3.9 MMOL/L (3.5-5.1) Chloride Level 113 MMOL/L (98-107) H Carbon Dioxide Level 24 MMOL/L (21-32) Anion Gap 19 mmol/L (5-15) H Blood Urea Nitrogen 72 mg/dL (7-18) H Creatinine 1.1 MG/DL (0.55-1.30) Estimat Glomerular Filtration Rate > 60 mL/min (>60) Glucose Level 147 MG/DL (74-106) H Calcium Level 11.4 MG/DL (8.5-10.1) H Total Bilirubin 1.3 MG/DL (0.2-1.0) H Direct Bilirubin 0.2 MG/DL (0.0-0.3) Aspartate Amino Transf (AST/SGOT) 27 U/L (15-37) Alanine Aminotransferase (ALT/SGPT) 26 U/L (12-78) Alkaline Phosphatase 110 U/L (46-116) Total Protein 10.0 G/DL (6.4-8.2) H Albumin 4.1 G/DL (3.4-5.0) Globulin 5.9 g/dL Albumin/Globulin Ratio 0.7 (1.0-2.7) L Height (Feet): 5 Height (Inches): 6.00 Weight (Pounds): 104 Medications Current Medications Medications (Trade) Dose Ordered Sig/Cristofer Route PRN Reason Start Time Stop Time Status Last Admin Dose Admin Acetaminophen (Tylenol) 650 mg Q4H PRN ORAL fever 12/03/18 21:45 01/02/19 21:44 Al Hydroxide/Mg Hydroxide (Mylanta II) 30 ml Q6H PRN ORAL dyspepsia 12/03/18 21:45 01/02/19 21:44 Dextrose (Dextrose 50%) 25 ml Q30M PRN IV Hypoglycemia 12/03/18 21:45 01/02/19 21:44 Dextrose (Dextrose 50%) 50 ml Q30M PRN IV Hypoglycemia 12/03/18 21:45 01/02/19 21:44 Dextrose/Sodium Chloride 1,000 ml @ 75 mls/hr [id number] IV 12/03/18 21:45 01/02/19 21:44 12/04/18 12:06 Diphenhydramine HCl (Benadryl) 25 mg Q6H PRN ORAL Itching/Pruritis 12/03/18 21:45 01/02/19 21:44 Heparin Sodium (Porcine) (Heparin 5000 units/ml) 5,000 units EVERY 12 HOURS SUBQ 12/04/18 09:00 01/03/19 08:59 Lorazepam (Ativan 2mg/ml 1ml) 1 mg Q4H PRN IV agitation 12/03/18 21:45 12/10/18 21:44 Metoclopramide HCl (Reglan) 10 mg Q4H PRN IVP servere nausea 12/03/18 21:45 01/02/19 21:44 Metoprolol Tartrate (Lopressor) 25 mg Q12HR ORAL 12/04/18 21:00 01/03/19 20:59 Morphine Sulfate (Morphine Sulfate) 2 mg Q4H PRN IVP severe Pain (Pain Scale 7-10) 12/03/18 21:45 12/10/18 21:44 Nitroglycerin (Ntg) 0.4 mg Q5M X 3 DOSES PRN SL Prn Chest Pain 12/03/18 21:45 01/02/19 21:44 Ondansetron HCl (Zofran) 4 mg Q6H PRN IVP Nausea & Vomiting 12/03/18 21:45 01/02/19 21:44 Pantoprazole (Protonix) 40 mg DAILY IV 12/04/18 09:00 01/03/19 08:59 12/04/18 09:17 Polyethylene Glycol (Miralax) 17 gm HSPRN PRN ORAL Constipation 12/03/18 21:45 01/02/19 21:44 Promethazine HCl 25 mg/Sodium Chloride 56 ml @ 110 mls/hr Q6H PRN IV Refractory N/V 12/03/18 21:45 01/02/19 21:44 Temazepam (Restoril) 15 mg HSPRN PRN ORAL Insomnia 12/03/18 21:45 12/10/18 21:44 Assessment/Plan Problem List: (1) Malfunction of gastrostomy tube Assessment & Plan: Patient presents with dislodged gastric feeding tube. Prior site of tube near closed. As per gastrology no patient's prior records demonstrate no artificial feeding. Needs further review. In the meantime if feeding tube appropriate should have one placed soon IV fluids KUB ICD Codes: K94.23 - Gastrostomy malfunction SNOMED: 665420594 (2) Sacral decubitus ulcer Assessment & Plan: Presents from care home with stage 3 full-thickness bri- sacral decubitus ulcer with periwound erythema dry scab, no active drainage. No cellulitis. No odor. Pt presented on admission with multiple pressure injuries. Pt is emaciated. R buttocks/Sacral DTPI noted .Site maroon and indurated with marginal erythema. Pt became agitated when minimally palpated.(L) 4cm x (W)3.2cm.Non-blanchable erythema periwound. Non-blanchable erythema without erythema or fluctuance L trochanter(L)1cm x (W) 2.5cm. Non-Blanchable erythema without induration R trochanter (L)8cm x (W)6cm Non-blanchable erythema with fluctuance lateral R malleolus. (L)2.5cm x (W)2cm. Non-blanchable erythema without induration or fluctuance R achilles (L)1.3cm x ( W)0.7cm. Non-blanchable erythema without induration or fluctuance lateral R foot (L)1cm x (W)1.2cm. Non-blanchable erythema with fluctuance R heel and Lateral aspect(L)1.4cm x (W) 3cm. Tx.Plan: Apply Triad Paste to Sacrum /R Buttocks.Cover with Optifoam drsg .Change every 3 days and prn. Apply Cavilon Skin Barrier to R and L trochanters .Cover each site with Optifoam drsgs. Change every 7 days and PRN. Apply Cavilon Skin Barrier to red areas R foot (Achilles,Heel, lateral R foot and malleolus) .Cover each site with Optifoam drsgs .Change every 7 days and prn. Reposition at least every 2hours or as tolerated. Off-load heels with pillow. APM/MEEK mattress. ICD Codes: L89.159 - Pressure ulcer of sacral region, unspecified stage SNOMED: 825268656 Shiv Horvath Dec 04, 2018 15:35
--- NOTE | 2018-12-04 15:40 | NUR ---
NURSE NOTES: RN collected urine for UA and sent it to lab.
--- NOTE | 2018-12-04 15:48 | NUR ---
ST NOTE: BEDSIDE SWALLOW EVAL/CONSULT RECEIVED BEDSIDE SWALLOW CHART REVIEWED PRIOR THE EVALUATION COMPLETED SWALLOW CONSULT. PT IS A 58-YEAR-OLD MALE WHO WAS ADMITTED DUE TO DEHYDRATION AND WEAKNESS. DYSPHAGIA RISK FACTORS: H/O CVA(R FRONTAL AND R CEREBELLAR ENCEPHALOMALACIA, CONSISTENT W/OLD INFARCTS), H/O SEIZURE, PSYCH(PSYCHOSIS, BIPOLAR DISORDER, ANXIETY, INSOMNIA, SCHIZOAFFECTIVE DISORDER), H/O G-TUBE(PT PULLED IT OUT), MULTI-INFARCT DEMENTIA DUE TO ATHEROSCLEROSIS PLOF: PT RESIDES AT SNF. PER CHART, PT IS ON [facility] SOFT WITH NECTAR THICK LIQUIDS. PER PT'S POLST: DNR/DNI, COMFORT FOCUSED TREATMENT, NO ARTIFICIAL MEANS OF NUTRITION, INCLUDING FEEDING TUBES. PER CHART, PT WAS ON HOSPICE CARE. CURRENT STATUS: PT IS NPO. AWAKE, DID NOT TALK, DID NOT FOLLOW DIRECTIONS. PT REMOVED HIS G-TUBE. DRY MOUTH WAS NOTED. ATTEMPTED A FEW TIMES, PT REFUSED, UNABLE TO ASSESS PT'S SWALLOWING FUNCTION. BASED ON PT'S OVERALL CONDITIONS AND H/O CVA AND DEMENTIA, PT HAS RISK FOR ASPIRATION. RECOMMENDATIONS: 1. KEEP PT NPO. 2. DOUBT PT WOULD TAKE PO. IF PO IS GIVEN FOR QUALITY OF LIFE, CONSIDER THE SAFEST DIET LIQUIFIED PUREED, LIKE NECTAR THICK SOUP CONSISTENCY WITH NECTAR THICK LIQUIDS WITH STRICT ASPIRATION PRECAUTIONS WITH 1TO1 FEEDING AT 1/2 TEASPOON LEVEL. 3. CONTINUE IV FLUID. 4. CONSIDER PALLIATIVE CARE. D/W RN, MICHAEL BHARDWAJ.
[2018-12-04 16:57] VITALS: BP 118/77
--- NOTE | 2018-12-04 19:33 | NUR ---
HAND-OFF: Report given to Bernardo CHUNG.
[2018-12-04 20:00] VITALS: BP 112/77
--- NOTE | 2018-12-04 20:17 | NUR ---
NURSE NOTES: Patient in bed, refused accucheck for HS. no complaints of pain. Instructed the use of call light. Call light and needs in reach. Bed in lowest position, lock engaged and alarm on. Will continue to monitor.
[2018-12-04] MEDS: Metoprolol 25mg tab ORAL SCH (20:23)
[2018-12-04] MEDS: levETIRAcetam 500mg/NS100ml 100 ML IVPB SCH (20:31)
--- NOTE | 2018-12-04 23:44 | History & Physical ---
History and Physical History & Physicial The patient was seen and examined at bedside and all new and available data was reviewed in the patients chart. F/U Labs (Patient was seen earlier today. Signature timestamp does not reflect patient encounter time) Ean Wood MD, MD Dec 04, 2018 23:44
[2018-12-05] MEDS: D5 1/2NS 1,000 ML IV SCH ×2 (01:38→13:45)
[2018-12-05 04:00] VITALS: BP 117/75
--- NOTE | 2018-12-05 07:37 | NUR ---
HAND-OFF: Report given to JULIET Dominguez.
--- NOTE | 2018-12-05 07:45 | NUR ---
NURSE NOTES: During round,noted with patient's IV was out and patient said " I do not need IV." No s/s of infection or skin break on IV removal. Patient refused IV insertion x3. RN explained the risks and benefits but patient refused x3 resisting by waving his arms. Patient also refused v/s. Will continue to monitor.
[2018-12-05] MEDS: Heparin 5000 units/ml inj SUBQ SCH ×2 (09:00→20:33)
[2018-12-05] MEDS: levETIRAcetam 500mg/NS100ml 100 ML IVPB SCH ×2 (09:00→20:33)
[2018-12-05] MEDS: Pantoprazole Inj IV SCH (09:00)
[2018-12-05] MEDS: Metoprolol 25mg tab ORAL SCH ×2 (09:00→20:32)
--- NOTE | 2018-12-05 09:00 | NUR ---
NURSE NOTES: survey technologist talked to the patient regarding an IV insertion but patient refused x3. Patient also refused 9:00am scheduled medications. Unable to administer keppra IV since patient refused IV insertion. Dr. Joyce made aware with no new order.
[2018-12-05] MEDS ORDERED: Metoprolol Tartrate 12.5mg TAB ONE (09:39)
[2018-12-05 11:06] LABS: APPEARANCE,URINE CLEAR; BILIRUBIN, URINE NEGATIVE (NEGATIVE); GLUCOSE, URINE (UA) NEGATIVE (NEGATIVE); KETONES,URINE NEGATIVE (NEGATIVE); LEUKOCYTE ESTERASE ,URINE 2+ (NEGATIVE); NITRITE,URINE POSITIVE (NEGATIVE); PH,URINE 6 (4.5-8.0); PROTEIN,URINE 2+ (NEGATIVE); UROBILINOGEN,URINE NORMAL MG/DL (0.0-1.0)
[2018-12-05 11:09] LABS: COLOR,URINE YELLOW
--- NOTE | 2018-12-05 11:14 | NUR ---
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 WEAKNESS VS: BP 112/77, P 109, T 96.4, RR 20, SpO2 96 Urine Protein 2+, Urine Blood 1+, Urine Nitrate POSITIVE IS:D5 NS x1L IV PT IS NPO AND GT IS DISLODGED AWAITING PEG PLACEMENT MED/SURG STATUS
--- NOTE | 2018-12-05 11:30 | NUR ---
NURSE NOTES: Patient refused blood sugar check. Rn explained the risks and benefits.
--- NOTE | 2018-12-05 12:00 | NUR ---
NURSE NOTES: patient refused v/s. Explained the risks and benefits.
--- NOTE | 2018-12-05 12:22 | GI Progress Note ---
Assessment/Plan Problems: (1) Severe malnutrition ICD Codes: E43 - Unspecified severe protein-calorie malnutrition SNOMED: 17750454 (2) Encounter for PEG (percutaneous endoscopic gastrostomy) ICD Codes: Z43.1 - Encounter for attention to gastrostomy SNOMED: 444414337, 711327362 (3) Dehydration ICD Codes: E86.0 - Dehydration SNOMED: 69410327 (4) Weakness ICD Codes: R53.1 - Weakness SNOMED: 13621533 Status: stable Status Narrative Discussed with Dr. Mcneil. Assessment/Plan POLST reviewed noted with no artificial feeding. patient refusing all care No plans for PEG placement. advance diet per supportive care dc planning The patient was seen and examined at bedside and all new and available data was reviewed in the patients chart. I agree with the above findings, impression and plan. (Patient seen earlier today. Signature stamp does not reflect patient encounter time.). - Louis Mcneil MD Subjective Subjective refusing all care Objective Last 24 Hour Vital Signs Date Time Temp Pulse Resp B/P (MAP) Pulse Ox O2 Delivery O2 Flow Rate FiO2 12/05/18 09:00 99 117/75 12/05/18 09:00 Room Air 12/05/18 04:00 97.5 99 20 117/75 (89) 98 12/04/18 21:00 Room Air 12/04/18 20:00 96.4 109 20 112/77 (89) 96 12/04/18 16:57 98.8 117 20 118/77 (91) 100 Intake and Output 12/04/18 12/05/18 18:59 06:59 Intake Total 900 ml 963 ml Output Total 600 ml 450 ml Balance 300 ml 513 ml Intake IV Total 900 ml 963 ml Output Urine Total 600 ml 450 ml Laboratory Tests Test 12/05/18 10:52 Urine Color Yellow Urine Appearance Clear Urine pH 6 (4.5-8.0) Urine Specific [place] 1.010 (1.005-1.035) Urine Protein 2+ (NEGATIVE) H Urine Glucose (UA) Negative (NEGATIVE) Urine Ketones Negative (NEGATIVE) Urine Blood 1+ (NEGATIVE) H Urine Nitrite Positive (NEGATIVE) H Urine Bilirubin Negative (NEGATIVE) Urine Urobilinogen Normal MG/DL (0.0-1.0) Urine Leukocyte Esterase 2+ (NEGATIVE) H Urine RBC 2-4 /HPF (0 - 0) H Urine WBC 10-15 /HPF (0 - 0) H Urine Squamous Epithelial Cells Occasional /LPF Urine Bacteria Moderate /HPF (NONE) H Height (Feet): 5 Height (Inches): 6.00 Weight (Pounds): 128 General Appearance: no apparent distress Cardiovascular: normal rate Respiratory/Chest: normal breath sounds, no respiratory distress Abdominal Exam: normal bowel sounds, non tender, soft Extremities: non-tender Finn El NP Dec 05, 2018 12:22
--- NOTE | 2018-12-05 13:10 | Pulmonology Progress Note ---
Assessment/Plan Problems: (1) Severe malnutrition (2) Malfunction of gastrostomy tube (3) Diabetes mellitus type 2, insulin dependent (4) Schizoaffective disorder (5) History of left above knee amputation Assessment/Plan pt and his family refusing PEG placement [facility] Subjective ROS Limited/Unobtainable: No Constitutional: Reports: no symptoms HEENT: Repors: no symptoms Respiratory: Reports: no symptoms Allergies: Coded Allergies: DIVALPROEX SODIUM (Verified Allergy, Unknown, 06/01/18) PENICILLINS (Unverified Allergy, Unknown, 11/06/18) Tolerates cephalosporins Objective Last 24 Hour Vital Signs Date Time Temp Pulse Resp B/P (MAP) Pulse Ox O2 Delivery O2 Flow Rate FiO2 12/05/18 09:00 99 117/75 12/05/18 09:00 Room Air 12/05/18 04:00 97.5 99 20 117/75 (89) 98 12/04/18 21:00 Room Air 12/04/18 20:00 96.4 109 20 112/77 (89) 96 12/04/18 16:57 98.8 117 20 118/77 (91) 100 Intake and Output 12/04/18 12/05/18 18:59 06:59 Intake Total 900 ml 963 ml Output Total 600 ml 450 ml Balance 300 ml 513 ml Intake IV Total 900 ml 963 ml Output Urine Total 600 ml 450 ml General Appearance: cachetic HEENT: normocephalic, atraumatic Respiratory/Chest: chest wall non-tender, normal breath sounds Abdomen: normal bowel sounds, soft, non tender Genitourinary: normal external genitalia Extremities: no clubbing Skin: no lesions Laboratory Tests 12/05/18 10:52: Urine Color Yellow, Urine Appearance Clear, Urine pH 6, Urine Specific [place] 1.010, Urine Protein 2+H, Urine Glucose (UA) Negative, Urine Ketones Negative, Urine Blood 1+H, Urine Nitrite PositiveH, Urine Bilirubin Negative, Urine Urobilinogen Normal, Urine Leukocyte Esterase 2+H, Urine RBC 2-4H, Urine WBC 10- 15H, Urine Squamous Epithelial Cells Occasional, Urine Bacteria ModerateH Current Medications Medications (Trade) Dose Ordered Sig/Cristofer Route PRN Reason Start Time Stop Time Status Last Admin Dose Admin Acetaminophen (Tylenol) 650 mg Q4H PRN ORAL fever 12/03/18 21:45 01/02/19 21:44 Al Hydroxide/Mg Hydroxide (Mylanta II) 30 ml Q6H PRN ORAL dyspepsia 12/03/18 21:45 01/02/19 21:44 Dextrose (Dextrose 50%) 25 ml Q30M PRN IV Hypoglycemia 12/03/18 21:45 01/02/19 21:44 Dextrose (Dextrose 50%) 50 ml Q30M PRN IV Hypoglycemia 12/03/18 21:45 01/02/19 21:44 Dextrose/Sodium Chloride 1,000 ml @ 75 mls/hr [id number] IV 12/03/18 21:45 01/02/19 21:44 12/05/18 01:38 Diphenhydramine HCl (Benadryl) 25 mg Q6H PRN ORAL Itching/Pruritis 12/03/18 21:45 01/02/19 21:44 Heparin Sodium (Porcine) (Heparin 5000 units/ml) 5,000 units EVERY 12 HOURS SUBQ 12/04/18 09:00 01/03/19 08:59 Levetiracetam 100 ml @ 400 mls/hr Q12HR IVPB 12/04/18 21:00 01/03/19 20:59 12/04/18 20:31 Lorazepam (Ativan 2mg/ml 1ml) 1 mg Q4H PRN IV agitation 12/03/18 21:45 12/10/18 21:44 Metoclopramide HCl (Reglan) 10 mg Q4H PRN IVP servere nausea 12/03/18 21:45 01/02/19 21:44 Metoprolol Tartrate (Lopressor) 25 mg Q12HR ORAL 12/04/18 21:00 01/03/19 20:59 Morphine Sulfate (Morphine Sulfate) 2 mg Q4H PRN IVP severe Pain (Pain Scale 7-10) 12/03/18 21:45 12/10/18 21:44 Nitroglycerin (Ntg) 0.4 mg Q5M X 3 DOSES PRN SL Prn Chest Pain 12/03/18 21:45 01/02/19 21:44 Ondansetron HCl (Zofran) 4 mg Q6H PRN IVP Nausea & Vomiting 12/03/18 21:45 01/02/19 21:44 Pantoprazole (Protonix) 40 mg DAILY IV 12/04/18 09:00 01/03/19 08:59 12/04/18 09:17 Polyethylene Glycol (Miralax) 17 gm HSPRN PRN ORAL Constipation 12/03/18 21:45 01/02/19 21:44 Promethazine HCl 25 mg/Sodium Chloride 56 ml @ 110 mls/hr Q6H PRN IV Refractory N/V 12/03/18 21:45 01/02/19 21:44 Temazepam (Restoril) 15 mg HSPRN PRN ORAL Insomnia 12/03/18 21:45 12/10/18 21:44 Dony Sanchez MD Dec 05, 2018 13:10
[2018-12-05] MEDS ORDERED: ATIVAN4 MG/1 ML IJ (13:12)
--- NOTE | 2018-12-05 13:30 | History and Physical Report ---
DATE OF ADMISSION: 12/03/2018 NOTE: "POOR AUDIO QUALITY" CHIEF COMPLAINT: G-tube malfunctioning and dehydration. HISTORY OF PRESENT ILLNESS: This is a 58-year-old gentleman with past medical history significant for prior history of CVA, Alzheimer dementia with cognitive impairment, seizure disorder, aphasia, hypertension, diabetes type 2, and status post PEG placement, who was presented to the hospital from nursing facility after his PEG tube was dislodged. The patient required for feeding and medication. The patient himself has underlying significant dementia and very combative. Shortly after initial evaluation in the emergency, the patient was admitted to the hospital with severe dehydration as well as dysphagia, status post PEG placement with PEG feeding tube dislodged. PAST MEDICAL HISTORY/PAST SURGICAL HISTORY: As above. History of dysphagia, status post PEG placement, schizoaffective disorder, diabetes type 2, history of CVA, seizure disorder, Alzheimer dementia, and history of aphasia. MEDICATIONS AT HOME: Please refer to medication reconciliation. The patient is on albuterol sulfate, ceftriaxone completed, Lexapro, Levsin, Keppra, milk of magnesia, midodrine, Zyprexa, and senna. ALLERGIES: 1. Divalproex sodium. 2. Penicillin. However, the patient tolerated cephalosporin in the past. SOCIAL HISTORY: [facility] resident. No smoking, alcohol, or drugs at this time. FAMILY HISTORY: Noncontributory. REVIEW OF SYSTEMS: Mostly as above. Very limited secondary to the patient's status. Most of the history is taken from the ER chart and assisted documentation. No fever or chill was reported. No nausea or vomiting. No diarrhea. PHYSICAL EXAMINATION: VITAL SIGNS: On admission from the ER, temperature 97.2, pulse of 136, respirations 20, and blood pressure 112/72. GENERAL: The patient is awake, opens his eyes, cachectic with malnutrition, very agitated, and combative. HEAD AND NECK: Pupils equal and reactive to light. Anicteric. NECK: Supple. No JVD. LUNGS: Good air entry. No wheeze or rales. Poor inspiratory effort. HEART: S1 and S2. Distant heart sounds. No murmurs or gallops. ABDOMEN: Soft, not distended. PEG site, removed with stoma closed. No sign of infection at the site. EXTREMITIES: No cyanosis or clubbing. The patient has left AKA, right heel ulceration with muscle atrophy in bilateral lower extremities. NEUROLOGIC: Cranial nerves II through XII grossly intact. The patient is moving all the extremities spontaneously. PSYCHIATRIC: Unable to test completely due to the patient's mental status and agitation. LABORATORY AND DIAGNOSTIC DATA: On admission from the ER, WBC of 14, hemoglobin 14, hematocrit 46, and platelet is 332,000. Sodium 156, potassium 3.9, chloride 113, bicarbonate 24, BUN 72, and creatinine 1.1, GFR is greater than 60, glucose level 147, calcium 11.4, total bilirubin of 1.3, alkaline phosphatase 110. ASSESSMENT: 1. G-tube malfunctioning with dislodge. 2. Dysphagia, status post feeding tube placement. 3. Hypertension. 4. Diabetes, type 2. 5. Alzheimer dementia. 6. History of CVA. 7. acute kidney injury. 8. toxic metabolic. 9. Severe protein-calorie malnutrition with cachexia. 10. Status post left BKA. PLAN: 1. Admit the patient to medical floor. 2. We will follow up with Dr. Sanchez from Pulmonary/Critical Care, Dr. Horvath from General Surgery, and Dr. Mcneil from Gastroenterology. 3. Code status is DNR/DNI. 4. DVT prophylaxis, heparin subcutaneous. 5. We will try to get consent for the possible PEG placement soon. 6. Monitor laboratory. Ean Joyce M.D. DR: LEONOR JOB#: [id number] CC:
--- NOTE | 2018-12-05 14:43 | Surgery Progress Note ---
Surgery Progress Note Subjective Additional Comments no acute events. vitals stable. refused new tube. no plans for peg. comfort Objective Last 24 Hour Vital Signs Date Time Temp Pulse Resp B/P (MAP) Pulse Ox O2 Delivery O2 Flow Rate FiO2 12/05/18 09:00 99 117/75 12/05/18 09:00 Room Air 12/05/18 04:00 97.5 99 20 117/75 (89) 98 12/04/18 21:00 Room Air 12/04/18 20:00 96.4 109 20 112/77 (89) 96 12/04/18 16:57 98.8 117 20 118/77 (91) 100 I&O Intake and Output 12/04/18 12/05/18 18:59 06:59 Intake Total 900 ml 963 ml Output Total 600 ml 450 ml Balance 300 ml 513 ml Intake IV Total 900 ml 963 ml Output Urine Total 600 ml 450 ml Laboratory Tests Test 12/05/18 10:52 Urine Color Yellow Urine Appearance Clear Urine pH 6 (4.5-8.0) Urine Specific [place] 1.010 (1.005-1.035) Urine Protein 2+ (NEGATIVE) H Urine Glucose (UA) Negative (NEGATIVE) Urine Ketones Negative (NEGATIVE) Urine Blood 1+ (NEGATIVE) H Urine Nitrite Positive (NEGATIVE) H Urine Bilirubin Negative (NEGATIVE) Urine Urobilinogen Normal MG/DL (0.0-1.0) Urine Leukocyte Esterase 2+ (NEGATIVE) H Urine RBC 2-4 /HPF (0 - 0) H Urine WBC 10-15 /HPF (0 - 0) H Urine Squamous Epithelial Cells Occasional /LPF Urine Bacteria Moderate /HPF (NONE) H Plan Problems: (1) Malfunction of gastrostomy tube Assessment & Plan: Patient presents with dislodged gastric feeding tube. Prior site of tube near closed. As per gastrology no patient's prior records demonstrate no artificial feeding. IV fluids refusing care plans d/c planning cont with wound instructions upon dc Shiv Horvath Dec 05, 2018 14:43
--- NOTE | 2018-12-05 15:07 | NUR ---
ST NOTE: SWALLOW/SPEECH/COGNITION STATUS: DISCUSSED WITH TERESA Rodriguez RE: PT'S CONDITIONS. PT HAS BEEN REFUSING NURSING CARE AND PO TRIALS. PER CAN CRIMPER, SPOKE TO PT AND PT AGREED PO TRIALS. PT SEEN AT BEDSIDE IN PM. ALERT, ATTEMPTED PO TRIALS AND ORAL CARE. PT REFUSED BY SHAKING HIS HEAD AND LOOKING AWAY EVEN GIVEN MAX ENCOURAGEMENT. RN, MICHAEL BHARDWAJ, ALSO AT BEDSIDE TO ENCOURAGEMENT PT FOR PO TRIALS. HOWEVER, PT REFUSED. UNABLE TO FULLY ASSESS PT'S SWALLOWING FUNCTION. PER PT AND FAMILY WISHES, NO ARTIFICIAL FEEDING, INCLUDING TUBE FEEDING. IF PO IS GIVEN FOR QUALITY OF LIFE COMFORT FEEDING, CONSIDER LIQUIFIED PUREED, LIKE NECTAR THICK SOUP CONSISTENCY WITH NECTAR THICK LIQUIDS WITH STRICT ASPIRATION PRECAUTIONS WITH 1TO1 FEEDING. D/W RN AND INFORMED TERESA Rodriguez. WILL D/C PT FROM SKILLED [facility] SERV[facility].
[2018-12-05 16:00] VITALS: BP 118/75
--- NOTE | 2018-12-05 18:28 | Internal Med Progress Note ---
Subjective Physician Name Ean Joyce Attending Physician Ean Joyce MD Current Medications Medications (Trade) Dose Ordered Sig/Cristofer Route PRN Reason Start Time Stop Time Status Last Admin Dose Admin Acetaminophen (Tylenol) 650 mg Q4H PRN ORAL fever 12/03/18 21:45 01/02/19 21:44 Al Hydroxide/Mg Hydroxide (Mylanta II) 30 ml Q6H PRN ORAL dyspepsia 12/03/18 21:45 01/02/19 21:44 Dextrose (Dextrose 50%) 25 ml Q30M PRN IV Hypoglycemia 12/03/18 21:45 01/02/19 21:44 Dextrose (Dextrose 50%) 50 ml Q30M PRN IV Hypoglycemia 12/03/18 21:45 01/02/19 21:44 Dextrose/Sodium Chloride 1,000 ml @ 75 mls/hr [id number] IV 12/03/18 21:45 01/02/19 21:44 12/05/18 01:38 Diphenhydramine HCl (Benadryl) 25 mg Q6H PRN ORAL Itching/Pruritis 12/03/18 21:45 01/02/19 21:44 Heparin Sodium (Porcine) (Heparin 5000 units/ml) 5,000 units EVERY 12 HOURS SUBQ 12/04/18 09:00 01/03/19 08:59 Levetiracetam 100 ml @ 400 mls/hr Q12HR IVPB 12/04/18 21:00 01/03/19 20:59 12/04/18 20:31 Lorazepam (Ativan 2mg/ml 1ml) 1 mg Q4H PRN IV agitation 12/03/18 21:45 12/10/18 21:44 Metoclopramide HCl (Reglan) 10 mg Q4H PRN IVP servere nausea 12/03/18 21:45 01/02/19 21:44 Metoprolol Tartrate (Lopressor) 25 mg Q12HR ORAL 12/04/18 21:00 01/03/19 20:59 Morphine Sulfate (Morphine Sulfate) 2 mg Q4H PRN IVP severe Pain (Pain Scale 7-10) 12/03/18 21:45 12/10/18 21:44 Nitroglycerin (Ntg) 0.4 mg Q5M X 3 DOSES PRN SL Prn Chest Pain 12/03/18 21:45 01/02/19 21:44 Ondansetron HCl (Zofran) 4 mg Q6H PRN IVP Nausea & Vomiting 12/03/18 21:45 01/02/19 21:44 Pantoprazole (Protonix) 40 mg DAILY IV 12/04/18 09:00 01/03/19 08:59 12/04/18 09:17 Polyethylene Glycol (Miralax) 17 gm HSPRN PRN ORAL Constipation 12/03/18 21:45 01/02/19 21:44 Promethazine HCl 25 mg/Sodium Chloride 56 ml @ 110 mls/hr Q6H PRN IV Refractory N/V 12/03/18 21:45 01/02/19 21:44 Temazepam (Restoril) 15 mg HSPRN PRN ORAL Insomnia 12/03/18 21:45 12/10/18 21:44 Allergies: Coded Allergies: DIVALPROEX SODIUM (Verified Allergy, Unknown, 06/01/18) PENICILLINS (Unverified Allergy, Unknown, 11/06/18) Tolerates cephalosporins Subjective Awake, responsive with opening his eyes, severely cachectic and malnutrition, dry buccal cavity. Objective Last Vital Signs Date Time Temp Pulse Resp B/P (MAP) Pulse Ox O2 Delivery O2 Flow Rate FiO2 12/05/18 16:00 98.8 107 18 118/75 (89) 93 12/05/18 09:00 Room Air Laboratory Tests Test 12/05/18 10:52 Urine Color Yellow Urine Appearance Clear Urine pH 6 (4.5-8.0) Urine Specific [place] 1.010 (1.005-1.035) Urine Protein 2+ (NEGATIVE) H Urine Glucose (UA) Negative (NEGATIVE) Urine Ketones Negative (NEGATIVE) Urine Blood 1+ (NEGATIVE) H Urine Nitrite Positive (NEGATIVE) H Urine Bilirubin Negative (NEGATIVE) Urine Urobilinogen Normal MG/DL (0.0-1.0) Urine Leukocyte Esterase 2+ (NEGATIVE) H Urine RBC 2-4 /HPF (0 - 0) H Urine WBC 10-15 /HPF (0 - 0) H Urine Squamous Epithelial Cells Occasional /LPF Urine Bacteria Moderate /HPF (NONE) H Intake and Output 12/04/18 12/05/18 19:00 07:00 Intake Total 825 ml 963 ml Output Total 600 ml 450 ml Balance 225 ml 513 ml Intake IV Total 825 ml 963 ml Output Urine Total 600 ml 450 ml Assessment/Plan Assessment/Plan Defer PEG, follow up bioethics and ST evaluation. Ean Joyce MD Dec 05, 2018 18:28
--- NOTE | 2018-12-05 18:32 | Internal Med Progress Note ---
Subjective Physician Name Ean Joyce Attending Physician Ean Joyce MD Current Medications Medications (Trade) Dose Ordered Sig/Cristofer Route PRN Reason Start Time Stop Time Status Last Admin Dose Admin Acetaminophen (Tylenol) 650 mg Q4H PRN ORAL fever 12/03/18 21:45 01/02/19 21:44 Al Hydroxide/Mg Hydroxide (Mylanta II) 30 ml Q6H PRN ORAL dyspepsia 12/03/18 21:45 01/02/19 21:44 Dextrose (Dextrose 50%) 25 ml Q30M PRN IV Hypoglycemia 12/03/18 21:45 01/02/19 21:44 Dextrose (Dextrose 50%) 50 ml Q30M PRN IV Hypoglycemia 12/03/18 21:45 01/02/19 21:44 Dextrose/Sodium Chloride 1,000 ml @ 75 mls/hr [id number] IV 12/03/18 21:45 01/02/19 21:44 12/05/18 01:38 Diphenhydramine HCl (Benadryl) 25 mg Q6H PRN ORAL Itching/Pruritis 12/03/18 21:45 01/02/19 21:44 Heparin Sodium (Porcine) (Heparin 5000 units/ml) 5,000 units EVERY 12 HOURS SUBQ 12/04/18 09:00 01/03/19 08:59 Levetiracetam 100 ml @ 400 mls/hr Q12HR IVPB 12/04/18 21:00 01/03/19 20:59 12/04/18 20:31 Lorazepam (Ativan 2mg/ml 1ml) 1 mg Q4H PRN IV agitation 12/03/18 21:45 12/10/18 21:44 Metoclopramide HCl (Reglan) 10 mg Q4H PRN IVP servere nausea 12/03/18 21:45 01/02/19 21:44 Metoprolol Tartrate (Lopressor) 25 mg Q12HR ORAL 12/04/18 21:00 01/03/19 20:59 Morphine Sulfate (Morphine Sulfate) 2 mg Q4H PRN IVP severe Pain (Pain Scale 7-10) 12/03/18 21:45 12/10/18 21:44 Nitroglycerin (Ntg) 0.4 mg Q5M X 3 DOSES PRN SL Prn Chest Pain 12/03/18 21:45 01/02/19 21:44 Ondansetron HCl (Zofran) 4 mg Q6H PRN IVP Nausea & Vomiting 12/03/18 21:45 01/02/19 21:44 Pantoprazole (Protonix) 40 mg DAILY IV 12/04/18 09:00 01/03/19 08:59 12/04/18 09:17 Polyethylene Glycol (Miralax) 17 gm HSPRN PRN ORAL Constipation 12/03/18 21:45 01/02/19 21:44 Promethazine HCl 25 mg/Sodium Chloride 56 ml @ 110 mls/hr Q6H PRN IV Refractory N/V 12/03/18 21:45 01/02/19 21:44 Temazepam (Restoril) 15 mg HSPRN PRN ORAL Insomnia 12/03/18 21:45 12/10/18 21:44 Allergies: Coded Allergies: DIVALPROEX SODIUM (Verified Allergy, Unknown, 06/01/18) PENICILLINS (Unverified Allergy, Unknown, 11/06/18) Tolerates cephalosporins Subjective Awake, responsive with opening his eyes, severely cachectic and malnutrition, dry buccal cavity. Objective Last Vital Signs Date Time Temp Pulse Resp B/P (MAP) Pulse Ox O2 Delivery O2 Flow Rate FiO2 12/05/18 16:00 98.8 107 18 118/75 (89) 93 12/05/18 09:00 Room Air Laboratory Tests Test 12/05/18 10:52 Urine Color Yellow Urine Appearance Clear Urine pH 6 (4.5-8.0) Urine Specific [place] 1.010 (1.005-1.035) Urine Protein 2+ (NEGATIVE) H Urine Glucose (UA) Negative (NEGATIVE) Urine Ketones Negative (NEGATIVE) Urine Blood 1+ (NEGATIVE) H Urine Nitrite Positive (NEGATIVE) H Urine Bilirubin Negative (NEGATIVE) Urine Urobilinogen Normal MG/DL (0.0-1.0) Urine Leukocyte Esterase 2+ (NEGATIVE) H Urine RBC 2-4 /HPF (0 - 0) H Urine WBC 10-15 /HPF (0 - 0) H Urine Squamous Epithelial Cells Occasional /LPF Urine Bacteria Moderate /HPF (NONE) H Intake and Output 12/04/18 12/05/18 19:00 07:00 Intake Total 825 ml 963 ml Output Total 600 ml 450 ml Balance 225 ml 513 ml Intake IV Total 825 ml 963 ml Output Urine Total 600 ml 450 ml Objective GENERAL: The patient is awake, opens his eyes, cachectic with malnutrition, less agitated, and combative. HEAD AND NECK: Pupils equal and reactive to light. Anicteric. NECK: Supple. No JVD. LUNGS: poor air entry. No wheeze or rales. Poor inspiratory effort. HEART: S1 and S2. Distant heart sounds. No murmurs or gallops. ABDOMEN: Soft, not distended not tender, old G-tube site closed., EXTREMITIES: No cyanosis or clubbing. left AKA with intact stump, right heel ulceration with muscle atrophy in bilateral lower extremities. NEUROLOGIC: Cranial nerves II through XII grossly intact. The patient is moving all the extremities spontaneously. Assessment/Plan Assessment/Plan ASSESSMENT: 1. G-tube malfunctioning with dislodge. 2. Dysphagia, status post feeding tube placement. 3. Hypertension. 4. Diabetes, type 2. 5. Alzheimer dementia. 6. History of CVA. 7. ATN / acute kidney injury. 8. Acute toxic metabolic encephalopathy. 9. Severe protein-calorie malnutrition with cachexia. 10. Status post left BKA. PLAN: 1. In medical floor. 2. We will follow up with Dr. Sanchez from Pulmonary/Critical Care, from General Surgery, and Dr. Mcneil from Gastroenterology. 3. Code status is DNR/DNI. 4. DVT prophylaxis, heparin subcutaneous. 5. We will try to get consent for the possible PEG placement soon. 6. Monitor laboratory. 7. Defer PEG, follow up bioethics and ST evaluation. Ean Joyce M.D. Ean Joyce MD Dec 05, 2018 18:32
--- NOTE | 2018-12-05 18:40 | NUR ---
NURSE NOTES: RN took the picture of right foot,heels, achilles, lat foot and uploaded pictures.
--- NOTE | 2018-12-05 19:18 | NUR ---
HAND-OFF: Report given to
--- NOTE | 2018-12-05 19:37 | NUR ---
NURSE NOTES: Patient awake in bed, asked if it's ok to re insert IV but patient refused. Patient refused acchucheck with knowledge of risks and benefits. Instructed the use of call light. Call light and needs in reach. Bed in lowest position, lock engaged and alarm on. Will continue to monitor.
[2018-12-05 20:00] VITALS: BP 116/74
--- NOTE | 2018-12-05 23:51 | Consultation ---
History of Present Illness General Chief Complaint: Malfunctioning Gastric Tube Referring physician: TERELL BOSWELL Reason for Consultation: inpatient management Present Illness HPI 58-year-old man with past medical history significant for prior history of CVA,schizoaffective do, cognitive impairment, seizure disorder, aphasia, hypertension, diabetes type 2, and status post PEG placement, who was presented to the hospital from nursing facility after his PEG tube was dislodged. the pt is noncompliant and refusing care. the pt is unable to provide hx. the pt is confused. Allergies: Coded Allergies: DIVALPROEX SODIUM (Verified Allergy, Unknown, 06/01/18) PENICILLINS (Unverified Allergy, Unknown, 11/06/18) Tolerates cephalosporins Medication History Scheduled Albuterol Sulfate (Albuterol Sulfate), 0.63 MG HHN Q4HR, (Reported) Bisacodyl (Bisacodyl), 10 MG RC PRN, (Reported) Ceftriaxone Sodium (Ceftriaxone), 1 GM IV DAILY Escitalopram Oxalate* (Lexapro*), 10 MG GT DAILY, (Reported) Heparin Sod (Porcine) (Heparin Sodium*), 5,000 UNITS SUBQ EVERY 12 HOURS, ( Reported) Hyoscyamine Sulfate* (Levsin-Sl*), 0.125 MG SL EVERY 4 HOURS, (Reported) Levetiracetam (Keppra), 500 MG NG Q12HR Levetiracetam (Keppra), 1,000 MG GT Q12HR Lorazepam* (Ativan*), 1 MG JT Q4HR, (Reported) Mag Hydrox/Al Hydrox/Simeth (Alum-Mag Hydroxide-Simeth Liq), 30 ML GT EVERY 6 HOURS, (Reported) Midodrine (Midodrine HCl), 10 MG ORAL Q8HR Midodrine (Midodrine HCl), 15 MG GT THREE TIMES A DAY, (Reported) Olanzapine* (Zyprexa*), 10 MG GT DAILY, (Reported) Sennosides (Senna), 8.6 MG GT DAILY, (Reported) Scheduled PRN Acetaminophen* (Acetaminophen 325MG Tablet*), 650 MG JT Q4H PRN for Mild Pain/ Temp > 100.5, (Reported) Hydrocodone Bit/Acetaminophen 5-325* ([place] 5-325*), 1 TAB GT Q4H PRN for For Pain, (Reported) Morphine 10mg/5ml Oral Soln* (Morphine 10mg/5ml Oral Soln*), 10 MG ORAL EVERY 4 HOURS PRN for For Pain, (Reported) Ondansetron Odt* (Zofran Odt*), 4 MG SL Q4HR PRN for Nausea & Vomiting, ( Reported) Ondansetron* (Zofran*), 4 MG GT Q6H PRN for Nausea & Vomiting, (Reported) Polyethylene Glycol 3350* (Polyethylene Glycol 3350*), 17 GM GT BEDTIME PRN for Constipation, (Reported) Quetiapine Fumarate* (Seroquel*), 25 MG ORAL Q6H PRN Miscellaneous Medications Ferrous Fumarate (Ferrous Fumarate), 324 MG PO, (Reported) Insulin Aspart* (Novolog*), 0 SUBQ, (Reported) Patient History Limited by: medical condition History Provided By: Medical Record, PMD Healthcare decision maker Sharif Harding Resuscitation status Do Not Resuscitate Advanced Directive on File No Past Medical/Surgical History Past Medical/Surgical History: (1) Dementia, multi-infarct (2) Septic shock (3) Cellulitis (4) Seizure disorder (5) ATN (acute tubular necrosis) (6) HTN (hypertension) (7) Feeding by G-tube (8) Alzheimer's dementia (9) History of left above knee amputation (10) Schizoaffective disorder (11) Diabetes mellitus type 2, insulin dependent (12) Malfunction of gastrostomy tube (13) Severe malnutrition (14) Hematuria Review of Systems Psychiatric: Reports: depressed feelings Physical Exam General Appearance: alert, confused, thin Last 24 Hour Vital Signs Date Time Temp Pulse Resp B/P (MAP) Pulse Ox O2 Delivery O2 Flow Rate FiO2 12/05/18 21:00 Room Air 12/05/18 20:00 98.3 106 18 116/74 (88) 98 12/05/18 16:00 98.8 107 18 118/75 (89) 93 12/05/18 09:00 99 117/75 12/05/18 09:00 Room Air 12/05/18 04:00 97.5 99 20 117/75 (89) 98 Intake and Output 12/04/18 12/05/18 19:00 07:00 Intake Total 825 ml 963 ml Output Total 600 ml 450 ml Balance 225 ml 513 ml Intake IV Total 825 ml 963 ml Output Urine Total 600 ml 450 ml Laboratory Tests Test 12/05/18 10:52 Urine Color Yellow Urine Appearance Clear Urine pH 6 (4.5-8.0) Urine Specific [place] 1.010 (1.005-1.035) Urine Protein 2+ (NEGATIVE) H Urine Glucose (UA) Negative (NEGATIVE) Urine Ketones Negative (NEGATIVE) Urine Blood 1+ (NEGATIVE) H Urine Nitrite Positive (NEGATIVE) H Urine Bilirubin Negative (NEGATIVE) Urine Urobilinogen Normal MG/DL (0.0-1.0) Urine Leukocyte Esterase 2+ (NEGATIVE) H Urine RBC 2-4 /HPF (0 - 0) H Urine WBC 10-15 /HPF (0 - 0) H Urine Squamous Epithelial Cells Occasional /LPF Urine Bacteria Moderate /HPF (NONE) H Height (Feet): 5 Height (Inches): 6.00 Weight (Pounds): 128 Medications Current Medications Medications (Trade) Dose Ordered Sig/Cristofer Route PRN Reason Start Time Stop Time Status Last Admin Dose Admin Acetaminophen (Tylenol) 650 mg Q4H PRN ORAL fever 12/03/18 21:45 01/02/19 21:44 Al Hydroxide/Mg Hydroxide (Mylanta II) 30 ml Q6H PRN ORAL dyspepsia 12/03/18 21:45 01/02/19 21:44 Dextrose (Dextrose 50%) 25 ml Q30M PRN IV Hypoglycemia 12/03/18 21:45 01/02/19 21:44 Dextrose (Dextrose 50%) 50 ml Q30M PRN IV Hypoglycemia 12/03/18 21:45 01/02/19 21:44 Dextrose/Sodium Chloride 1,000 ml @ 75 mls/hr [id number] IV 12/03/18 21:45 01/02/19 21:44 12/05/18 01:38 Diphenhydramine HCl (Benadryl) 25 mg Q6H PRN ORAL Itching/Pruritis 12/03/18 21:45 01/02/19 21:44 Heparin Sodium (Porcine) (Heparin 5000 units/ml) 5,000 units EVERY 12 HOURS SUBQ 12/04/18 09:00 01/03/19 08:59 Levetiracetam 100 ml @ 400 mls/hr Q12HR IVPB 12/04/18 21:00 01/03/19 20:59 12/04/18 20:31 Lorazepam (Ativan 2mg/ml 1ml) 1 mg Q4H PRN IV agitation 12/03/18 21:45 12/10/18 21:44 Metoclopramide HCl (Reglan) 10 mg Q4H PRN IVP servere nausea 12/03/18 21:45 01/02/19 21:44 Metoprolol Tartrate (Lopressor) 25 mg Q12HR ORAL 12/04/18 21:00 01/03/19 20:59 Morphine Sulfate (Morphine Sulfate) 2 mg Q4H PRN IVP severe Pain (Pain Scale 7-10) 12/03/18 21:45 12/10/18 21:44 Nitroglycerin (Ntg) 0.4 mg Q5M X 3 DOSES PRN SL Prn Chest Pain 12/03/18 21:45 01/02/19 21:44 Ondansetron HCl (Zofran) 4 mg Q6H PRN IVP Nausea & Vomiting 12/03/18 21:45 01/02/19 21:44 Pantoprazole (Protonix) 40 mg DAILY IV 12/04/18 09:00 01/03/19 08:59 12/04/18 09:17 Polyethylene Glycol (Miralax) 17 gm HSPRN PRN ORAL Constipation 12/03/18 21:45 01/02/19 21:44 Promethazine HCl 25 mg/Sodium Chloride 56 ml @ 110 mls/hr Q6H PRN IV Refractory N/V 12/03/18 21:45 01/02/19 21:44 Temazepam (Restoril) 15 mg HSPRN PRN ORAL Insomnia 12/03/18 21:45 12/10/18 21:44 Assessment/Plan Problem List: (1) Schizoaffective disorder ICD Codes: F25.9 - Schizoaffective disorder, unspecified SNOMED: 48142462 Katherine Orozco MD Dec 05, 2018 23:51
[2018-12-06] VITALS: BP 125/80
[2018-12-06] MEDS: D5 1/2NS 1,000 ML IV SCH ×2 (03:05→16:25)
[2018-12-06 04:00] VITALS: BP 125/77
--- NOTE | 2018-12-06 07:30 | NUR ---
HAND-OFF: Report given to JULIET Espinoza.
--- NOTE | 2018-12-06 07:30 | NUR ---
NURSE NOTES: Received pt from JULIET RODRIGUEZ. Pt is confused and orient x1. pt has no iv access, MD is aware. pt has Vargas cath in place is running well. pt has old site of g tube on the stomach. all needs attended, bed is locked and is in the lowest position. call light within easy reach. will continue to monitor.
[2018-12-06 08:00] VITALS: BP 117/79
[2018-12-06] MEDS: Metoprolol 25mg tab ORAL SCH ×2 (09:00→21:00)
[2018-12-06] MEDS: Heparin 5000 units/ml inj SUBQ SCH ×2 (09:00→21:00)
[2018-12-06] MEDS: Pantoprazole Inj IV SCH (09:00)
[2018-12-06] MEDS: levETIRAcetam 500mg/NS100ml 100 ML IVPB SCH ×2 (09:00→21:00)
--- NOTE | 2018-12-06 10:03 | NUR ---
*-* INSURANCE *-* CLINICALS AND REVIEW FAXED TO: [id number] NCM: MARIS Sanchez P- [phone] F- [phone]....
--- NOTE | 2018-12-06 11:41 | GI Progress Note ---
Assessment/Plan Problems: (1) Severe malnutrition ICD Codes: E43 - Unspecified severe protein-calorie malnutrition SNOMED: 35145537 Status: stable Status Narrative Discussed with Dr. Mcneil. Assessment/Plan POLST reviewed noted with no artificial feeding. patient refusing all care, brother wants to respect patients wishes refusing to try to eat or drink recommend hospice care No plans for PEG placement. advance diet dc planning The patient was seen and examined at bedside and all new and available data was reviewed in the patients chart. I agree with the above findings, impression and plan. (Patient seen earlier today. Signature stamp does not reflect patient encounter time.). - Louis Mcneil MD Subjective Subjective refusing all care Objective Last 24 Hour Vital Signs Date Time Temp Pulse Resp B/P (MAP) Pulse Ox O2 Delivery O2 Flow Rate FiO2 12/06/18 09:00 Room Air 12/06/18 09:00 89 117/79 12/06/18 08:00 98.2 89 20 117/79 (92) 100 12/06/18 04:00 97.6 94 17 125/77 (93) 98 12/06/18 00:00 97.9 107 17 125/80 (95) 97 12/05/18 21:00 Room Air 12/05/18 20:00 98.3 106 18 116/74 (88) 98 12/05/18 16:00 98.8 107 18 118/75 (89) 93 Intake and Output 12/05/18 12/06/18 18:59 06:59 Output Total 400 ml 525 ml Balance -400 ml -525 ml Output Urine Total 400 ml 525 ml Height (Feet): 5 Height (Inches): 6.00 Weight (Pounds): 128 General Appearance: no apparent distress, alert, thin Cardiovascular: normal rate Respiratory/Chest: normal breath sounds, no respiratory distress Abdominal Exam: normal bowel sounds, non tender, soft Extremities: non-tender Finn El LEASING MACHINE TENDER Dec 06, 2018 11:41
[2018-12-06 12:00] VITALS: BP 103/63
--- NOTE | 2018-12-06 12:57 | Pulmonology Progress Note ---
Assessment/Plan Problems: (1) Severe malnutrition (2) Malfunction of gastrostomy tube (3) Diabetes mellitus type 2, insulin dependent (4) Schizoaffective disorder (5) History of left above knee amputation Assessment/Plan pt and his family refusing PEG placement will send him back to his assisted will start on liquid seizure medication, Keppra and prn IM ativan All medications and treatment were reviewed., Subjective ROS Limited/Unobtainable: No Constitutional: Reports: no symptoms HEENT: Repors: no symptoms Allergies: Coded Allergies: DIVALPROEX SODIUM (Verified Allergy, Unknown, 06/01/18) PENICILLINS (Unverified Allergy, Unknown, 11/06/18) Tolerates cephalosporins Objective Last 24 Hour Vital Signs Date Time Temp Pulse Resp B/P (MAP) Pulse Ox O2 Delivery O2 Flow Rate FiO2 12/06/18 09:00 Room Air 12/06/18 09:00 89 117/79 12/06/18 08:00 98.2 89 20 117/79 (92) 100 12/06/18 04:00 97.6 94 17 125/77 (93) 98 12/06/18 00:00 97.9 107 17 125/80 (95) 97 12/05/18 21:00 Room Air 12/05/18 20:00 98.3 106 18 116/74 (88) 98 12/05/18 16:00 98.8 107 18 118/75 (89) 93 Intake and Output 12/05/18 12/06/18 18:59 06:59 Output Total 400 ml 525 ml Balance -400 ml -525 ml Output Urine Total 400 ml 525 ml Objective General Appearance: WD/WN Respiratory/Chest: chest wall non-tender, lungs clear Cardiovascular: normal peripheral pulses, regular rhythm Abdomen: normal bowel sounds Genitourinary: normal external genitalia Skin: no rash Microbiology Date/Time Source Procedure Growth Status 12/04/18 07:00 Nasal Nares MRSA Culture - Final NO METHICILLIN RESISTANT STAPH AUREUS... Complete 12/05/18 10:52 Urine,Clean Catch Urine Culture - Preliminary Gram Negative Bacillus 1 Resulted Current Medications Medications (Trade) Dose Ordered Sig/Cristofer Route PRN Reason Start Time Stop Time Status Last Admin Dose Admin Acetaminophen (Tylenol) 650 mg Q4H PRN ORAL fever 12/03/18 21:45 01/02/19 21:44 Al Hydroxide/Mg Hydroxide (Mylanta II) 30 ml Q6H PRN ORAL dyspepsia 12/03/18 21:45 01/02/19 21:44 Dextrose (Dextrose 50%) 25 ml Q30M PRN IV Hypoglycemia 12/03/18 21:45 01/02/19 21:44 Dextrose (Dextrose 50%) 50 ml Q30M PRN IV Hypoglycemia 12/03/18 21:45 01/02/19 21:44 Dextrose/Sodium Chloride 1,000 ml @ 75 mls/hr [id number] IV 12/03/18 21:45 01/02/19 21:44 12/05/18 01:38 Diphenhydramine HCl (Benadryl) 25 mg Q6H PRN ORAL Itching/Pruritis 12/03/18 21:45 01/02/19 21:44 Heparin Sodium (Porcine) (Heparin 5000 units/ml) 5,000 units EVERY 12 HOURS SUBQ 12/04/18 09:00 01/03/19 08:59 Levetiracetam 100 ml @ 400 mls/hr Q12HR IVPB 12/04/18 21:00 01/03/19 20:59 12/04/18 20:31 Lorazepam (Ativan 2mg/ml 1ml) 1 mg Q4H PRN IV agitation 12/03/18 21:45 12/10/18 21:44 Metoclopramide HCl (Reglan) 10 mg Q4H PRN IVP servere nausea 12/03/18 21:45 01/02/19 21:44 Metoprolol Tartrate (Lopressor) 25 mg Q12HR ORAL 12/04/18 21:00 01/03/19 20:59 Morphine Sulfate (Morphine Sulfate) 2 mg Q4H PRN IVP severe Pain (Pain Scale 7-10) 12/03/18 21:45 12/10/18 21:44 Nitroglycerin (Ntg) 0.4 mg Q5M X 3 DOSES PRN SL Prn Chest Pain 12/03/18 21:45 01/02/19 21:44 Ondansetron HCl (Zofran) 4 mg Q6H PRN IVP Nausea & Vomiting 12/03/18 21:45 01/02/19 21:44 Pantoprazole (Protonix) 40 mg DAILY IV 12/04/18 09:00 01/03/19 08:59 12/04/18 09:17 Polyethylene Glycol (Miralax) 17 gm HSPRN PRN ORAL Constipation 12/03/18 21:45 01/02/19 21:44 Promethazine HCl 25 mg/Sodium Chloride 56 ml @ 110 mls/hr Q6H PRN IV Refractory N/V 12/03/18 21:45 01/02/19 21:44 Temazepam (Restoril) 15 mg HSPRN PRN ORAL Insomnia 12/03/18 21:45 12/10/18 21:44 Dony Sanchez MD Dec 06, 2018 12:57
--- NOTE | 2018-12-06 13:00 | NUR ---
NURSE NOTES: Dr richard visited pt, he is aware pt doesn't have iv access and is NPO and no medication given. pt refuses treatments. will continue to monitor.
--- NOTE | 2018-12-06 14:20 | Surgery Progress Note ---
Surgery Progress Note Subjective Symptoms: pain same, passing flatus, other Additional Comments no cooperative with exam Objective Last 24 Hour Vital Signs Date Time Temp Pulse Resp B/P (MAP) Pulse Ox O2 Delivery O2 Flow Rate FiO2 12/06/18 12:00 97.0 67 18 103/63 (76) 100 12/06/18 09:00 Room Air 12/06/18 09:00 89 117/79 12/06/18 08:00 98.2 89 20 117/79 (92) 100 12/06/18 04:00 97.6 94 17 125/77 (93) 98 12/06/18 00:00 97.9 107 17 125/80 (95) 97 12/05/18 21:00 Room Air 12/05/18 20:00 98.3 106 18 116/74 (88) 98 12/05/18 16:00 98.8 107 18 118/75 (89) 93 I&O Intake and Output 12/05/18 12/06/18 18:59 06:59 Output Total 400 ml 525 ml Balance -400 ml -525 ml Output Urine Total 400 ml 525 ml Dressing: other Wound: other Drains: other Cardiovascular: RSR Respiratory: decreased breath sounds Abdomen: soft, non-tender, present bowel sounds, non-distended Extremities: no tenderness, no cyanosis Plan Problems: (1) Malfunction of gastrostomy tube Assessment & Plan: Patient presents with dislodged gastric feeding tube. Prior site of tube near closed. As per gastrology no patient's prior records demonstrate no artificial feeding. PT HAS BEEN REFUSING NURSING CARE AND PO TRIALS. PER SLOT KEY PERSON, SPOKE TO PT AND PT AGREED PO TRIALS. PT SEEN AT BEDSIDE IN PM. ALERT, ATTEMPTED PO TRIALS AND ORAL CARE. PT REFUSED BY SHAKING HIS HEAD AND LOOKING AWAY EVEN GIVEN MAX ENCOURAGEMENT. RN, MICHAEL BHARDWAJ, ALSO AT BEDSIDE TO ENCOURAGEMENT PT FOR PO TRIALS. HOWEVER, PT REFUSED. UNABLE TO FULLY ASSESS PT'S SWALLOWING FUNCTION. PER PT AND FAMILY WISHES, NO ARTIFICIAL FEEDING, INCLUDING TUBE FEEDING. IF PO IS GIVEN FOR QUALITY OF LIFE COMFORT FEEDING, CONSIDER LIQUIFIED PUREED, LIKE NECTAR THICK SOUP CONSISTENCY WITH NECTAR THICK LIQUIDS WITH STRICT ASPIRATION PRECAUTIONS WITH 1TO1 FEEDING. IV fluids refusing care plans d/c planning cont with wound instructions upon dc Shiv Horvath Dec 06, 2018 14:20
[2018-12-06] MEDS ORDERED: D5 1/2NS 1000ml IV ONE (14:40)
[2018-12-06] MEDS ORDERED: Tubing IV Secondary IV ONE (14:40)
--- NOTE | 2018-12-06 15:11 | NUR ---
*-* DISCHARGE PLANNING *-* PATIENT HAS BEEN REFERRED TO: 1. [facility] P:[phone] F:[phone] 2. [facility] P:[phone] F:[phone] 3. [facility] P:[phone] F:[phone] 4. [facility] P: [phone] F:[phone] Addendum: 12/07/18 at 1417 by SWAPNIL FLETCHER CM 1. [facility] NO BED AVAILABILITY 2. [facility] FACILITY STATED MAXIME WAS OFF TILL MONDAY NO ADMISSIONS 3. [facility] NO MAKE BEDS 4. [facility] NO MALE BEDS
--- NOTE | 2018-12-06 15:13 | NUR ---
*-* DISCHARGE PLANNING *-* PATIENT HAS BEEN REFEREED TO [facility] P:[phone] F:[phone] Addendum: 12/06/18 at 1514 by SWAPNIL FLETCHER CM SPOKE TO NATACHA THEY DO NOT HAVE A CONTRACT AND SHE WILL TRY FOR [facility]
[2018-12-06 16:00] VITALS: BP 137/83
--- NOTE | 2018-12-06 16:11 | NUR ---
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 WEAKNESS VS: BP 125/80, P 107, T 97.0, RR 20, SpO2 97 IS:D5/NS IV PROTONIX iv HEPARIN SUBQ LEVETIRACETAM 100ml IVPB LOPRESSOR 25mg MED/SURG STATUS
--- NOTE | 2018-12-06 18:54 | Internal Med Progress Note ---
Subjective Date of Service: Nov 28, 2018 Physician Name Manjinder Marley Attending Physician Ean Joyce MD Current Medications Medications (Trade) Dose Ordered Sig/Cristofer Route PRN Reason Start Time Stop Time Status Last Admin Dose Admin Acetaminophen (Tylenol) 650 mg Q4H PRN ORAL fever 12/03/18 21:45 01/02/19 21:44 Al Hydroxide/Mg Hydroxide (Mylanta II) 30 ml Q6H PRN ORAL dyspepsia 12/03/18 21:45 01/02/19 21:44 Dextrose (Dextrose 50%) 25 ml Q30M PRN IV Hypoglycemia 12/03/18 21:45 01/02/19 21:44 Dextrose (Dextrose 50%) 50 ml Q30M PRN IV Hypoglycemia 12/03/18 21:45 01/02/19 21:44 Dextrose/Sodium Chloride 1,000 ml @ 75 mls/hr [id number] IV 12/03/18 21:45 01/02/19 21:44 12/05/18 01:38 Diphenhydramine HCl (Benadryl) 25 mg Q6H PRN ORAL Itching/Pruritis 12/03/18 21:45 01/02/19 21:44 Heparin Sodium (Porcine) (Heparin 5000 units/ml) 5,000 units EVERY 12 HOURS SUBQ 12/04/18 09:00 01/03/19 08:59 Levetiracetam 100 ml @ 400 mls/hr Q12HR IVPB 12/04/18 21:00 01/03/19 20:59 12/04/18 20:31 Lorazepam (Ativan 2mg/ml 1ml) 1 mg Q4H PRN IV agitation 12/03/18 21:45 12/10/18 21:44 Metoclopramide HCl (Reglan) 10 mg Q4H PRN IVP servere nausea 12/03/18 21:45 01/02/19 21:44 Metoprolol Tartrate (Lopressor) 25 mg Q12HR ORAL 12/04/18 21:00 01/03/19 20:59 Morphine Sulfate (Morphine Sulfate) 2 mg Q4H PRN IVP severe Pain (Pain Scale 7-10) 12/03/18 21:45 12/10/18 21:44 Nitroglycerin (Ntg) 0.4 mg Q5M X 3 DOSES PRN SL Prn Chest Pain 12/03/18 21:45 01/02/19 21:44 Ondansetron HCl (Zofran) 4 mg Q6H PRN IVP Nausea & Vomiting 12/03/18 21:45 01/02/19 21:44 Pantoprazole (Protonix) 40 mg DAILY IV 12/04/18 09:00 01/03/19 08:59 12/04/18 09:17 Polyethylene Glycol (Miralax) 17 gm HSPRN PRN ORAL Constipation 12/03/18 21:45 01/02/19 21:44 Promethazine HCl 25 mg/Sodium Chloride 56 ml @ 110 mls/hr Q6H PRN IV Refractory N/V 12/03/18 21:45 01/02/19 21:44 Temazepam (Restoril) 15 mg HSPRN PRN ORAL Insomnia 12/03/18 21:45 12/10/18 21:44 Allergies: Coded Allergies: DIVALPROEX SODIUM (Verified Allergy, Unknown, 06/01/18) PENICILLINS (Unverified Allergy, Unknown, 11/06/18) Tolerates cephalosporins ROS Limited/Unobtainable: Yes Subjective 58 YO M admitted with G-tube malunction. Cover for Int tasha-Dr Joyce Objective Last Vital Signs Date Time Temp Pulse Resp B/P (MAP) Pulse Ox O2 Delivery O2 Flow Rate FiO2 12/06/18 16:00 97.3 97 19 137/83 (101) 98 12/06/18 09:00 Room Air Microbiology Date/Time Source Procedure Growth Status 12/04/18 07:00 Nasal Nares MRSA Culture - Final NO METHICILLIN RESISTANT STAPH AUREUS... Complete 12/05/18 10:52 Urine,Clean Catch Urine Culture - Preliminary Gram Negative Bacillus 1 Resulted Intake and Output 12/05/18 12/06/18 19:00 07:00 Output Total 400 ml 525 ml Balance -400 ml -525 ml Output Urine Total 400 ml 525 ml Objective Objective GENERAL: The patient is awake, opens his eyes, cachectic with malnutrition, less agitated, and combative. HEAD AND NECK: Pupils equal and reactive to light. Anicteric. NECK: Supple. No JVD. LUNGS: poor air entry. No wheeze or rales. Poor inspiratory effort. HEART: S1 and S2. Distant heart sounds. No murmurs or gallops. ABDOMEN: Soft, not distended not tender, old G-tube site closed., EXTREMITIES: No cyanosis or clubbing. left AKA with intact stump, right heel ulceration with muscle atrophy in bilateral lower extremities. NEUROLOGIC: Cranial nerves II through XII grossly intact. The patient is moving all the extremities spontaneously. Assessment/Plan Assessment/Plan Assessment/Plan Assessment/Plan Assessment/Plan ASSESSMENT: 1. G-tube malfunctioning with dislodge. 2. Dysphagia, status post feeding tube placement. 3. Hypertension. 4. Diabetes, type 2. 5. Alzheimer dementia. 6. History of CVA. 7. ATN / acute kidney injury. 8. Acute toxic metabolic encephalopathy. 9. Severe protein-calorie malnutrition with cachexia. 10. Status post left BKA. PLAN: 1. In medical floor. 2. We will follow up with Dr. Sanchez from Pulmonary/Critical Care, from General Surgery, and Dr. Mcneil from Gastroenterology. 3. Code status is DNR/DNI. 4. DVT prophylaxis, heparin subcutaneous. 5. We will try to get consent for the possible PEG placement soon. 6. Monitor laboratory. 7. Defer PEG, follow up bioethics and ST evaluation. Manjinder Marley MD Dec 06, 2018 18:54
--- NOTE | 2018-12-06 19:30 | NUR ---
HAND-OFF: Report given to JLUIET WOODRUFF.
--- NOTE | 2018-12-06 20:10 | NUR ---
NURSE NOTES: Received patient in bed. A&OX1. Vargas draining well by gravity, yellow urine noted. No IV access noted, refused insert new IV. Patient refused assessment skin, patient say "I said NO!". Dressing on right foot dry and intact. Bed in lowest position. Call light within reach. Will continue to monitor.
--- NOTE | 2018-12-07 | NUR ---
NURSE NOTES: Patient refused dressing change.
[2018-12-07] MEDS: D5 1/2NS 1,000 ML IV SCH ×2 (05:45→19:05)
--- NOTE | 2018-12-07 07:29 | NUR ---
HAND-OFF: Report given to Olga CHUNG.
--- NOTE | 2018-12-07 07:30 | NUR ---
NURSE NOTES: Received pt from JULIET WOODRUFF. Pt is confused and orient x1. Pt is in RA. No SOB or acute respiratory distress noted. pt has no iv access Dr richard is aware. pt has Vargas cath in place is running well. All needs attended, bed is locked and is in the lowest position. call light within easy reach. will continue to monitor.
[2018-12-07 08:00] VITALS: BP 94/69
[2018-12-07] MEDS: levETIRAcetam 500mg/NS100ml 100 ML IVPB SCH ×2 (09:00→21:00)
[2018-12-07] MEDS: Metoprolol 25mg tab ORAL SCH ×2 (09:00→21:00)
[2018-12-07] MEDS: Heparin 5000 units/ml inj SUBQ SCH ×2 (09:00→21:00)
[2018-12-07] MEDS: Pantoprazole Inj IV SCH (09:00)
--- NOTE | 2018-12-07 10:51 | NUR ---
ST NOTE: SWALLOW/SPEECH/COGNITIONS STATUS: PER RN, DULCEON, PT REQUESTED WATER, AND PT WAS ABLE TO TAKE SOME ICE-CHIPS YESTERDAY WITHOUT DIFFICULTY. PT SEEN AT BEDSIDE IN AM. ALERT, VERBAL, CONFUSED, BUT ABLE TO MAKE NEEDS KNOWN, NO RESPIRATORY DISTRESS. PT REQUESTED TO HAVE ICE WATER. GIVEN A PITCH OF ICE-WATER VIA STRAW, MIN-MILD ORAL TRANSIT TIME AND OROPHARYNGEAL TRANSIT TIME, FAIR TO GOOD LARYNGEAL ELEVATION, NO OVERT S/S OF ASPIRATION. ATTEMPTED TO GIVE OTHER CONSISTENCIES, PT REFUSED EVEN GIVEN MAX ENCOURAGEMENT. PER PT, HE WANTS HOTDOG. DUE TO PT AND PT'S FAMILY REFUSED PEG PLACEMENT. PER SW'S NOTE, BROTHER WOULD LIKE TO D/C BACK TO SNF WITH HOSPICE CARE. FOR QUALITY OF LIFE, SLOWLY INITIATE FULL LIQUID DIET, ADVANCED DIET APPROPRIATE OR PER PT'S REQUEST. STRICT ASPIRATION PRECAUTIONS WITH 1TO1 ASSIST. D/W RN, AFSOON AND IN-CHARGE NURSE. POSTED ASPIRATION PRECAUTION SIGN. WILL D/C PT.
--- NOTE | 2018-12-07 12:39 | General Progress Note ---
Assessment/Plan Problem List: (1) Hematuria ICD Codes: R31.9 - Hematuria, unspecified SNOMED: 68305072 (2) Severe malnutrition ICD Codes: E43 - Unspecified severe protein-calorie malnutrition SNOMED: 10906253 (3) Diabetes mellitus type 2, insulin dependent ICD Codes: E11.9 - Type 2 diabetes mellitus without complications; Z79.4 - jail (current) use of insulin SNOMED: 938441678 (4) Schizoaffective disorder ICD Codes: F25.9 - Schizoaffective disorder, unspecified SNOMED: 73644506 (5) HTN (hypertension) ICD Codes: I10 - Essential (primary) hypertension SNOMED: 08364751 Assessment/Plan POLST reviewed noted with no artificial feeding. patient refusing all care, brother wants to respect patients wishes refusing to try to eat or drink recommend hospice care No plans for PEG placement. advance diet dc planning Subjective ROS Limited/Unobtainable: No Allergies: Coded Allergies: DIVALPROEX SODIUM (Verified Allergy, Unknown, 06/01/18) PENICILLINS (Unverified Allergy, Unknown, 11/06/18) Tolerates cephalosporins Objective Last 24 Hour Vital Signs Date Time Temp Pulse Resp B/P (MAP) Pulse Ox O2 Delivery O2 Flow Rate FiO2 12/07/18 09:00 Room Air 12/07/18 08:00 97.9 90 19 94/69 (77) 99 12/07/18 04:00 18 12/07/18 00:00 18 12/06/18 21:00 Room Air 12/06/18 20:00 19 12/06/18 16:00 97.3 97 19 137/83 (101) 98 Intake and Output 12/06/18 12/07/18 19:00 07:00 Output Total 200 ml 550 ml Balance -200 ml -550 ml Output Urine Total 200 ml 550 ml Height (Feet): 5 Height (Inches): 6.00 Weight (Pounds): 128 General Appearance: no apparent distress EENT: normal ENT inspection Neck: supple Cardiovascular: normal rate Respiratory/Chest: decreased breath sounds Abdomen: normal bowel sounds, non tender, soft Extremities: non-tender Louis Mcneil MD Dec 07, 2018 12:39
--- NOTE | 2018-12-07 12:58 | NUR ---
OUTPATIENT PHLEBOTOMISTTECHNOLOGY CONSULTANT SI: DEHYDRATION . WEAKNESS VS: BP 94/69, P 90, T 97.9, RR 19, SpO2 99 IS: PROTONIX iv HEPARIN SUBQ LEVETIRACETAM 100ml IVPB LOPRESSOR 25mg AWAITING PLACEMENT MED/SURG STATUS
--- NOTE | 2018-12-07 13:11 | NUR ---
*-* DISCHARGE PLANNING *-* PATIENT HAS BEEN REFERRED TO THE FOLLOWING FACILITIES. 1.[facility] P:[phone] F:[phone] 2.[facility] P:[phone] F:[phone] 3.[facility] P:[phone] F:[phone] 4.[facility] P:[phone] F:[phone] 5.[facility] P:[phone] F: [phone]
--- NOTE | 2018-12-07 13:15 | NUR ---
*-* INSURANCE *-* CLINICALS AND REVIEW FAXED TO: [id number] NCM: MARIS Sanchez P- [phone] F- [phone]....
--- NOTE | 2018-12-07 13:23 | NUR ---
RD ASSESSMENT & RECOMMENDATIONS SEE CARE ACTIVITY FOR COMPLETE ASSESSMENT DAILY ESTIMATED NEEDS: Needs based on wt loss, underweight/ 49.6kg 30-40 kcals/kg 5871-9518 total kcals 1-1.5 g protein/kg 50-75 g total protein 25-30 mL/kg 6345-2396 total fluid mLs NUTRITION DIAGNOSIS: *Swallowing difficulty r/t dysphagia as evidenced by h/o PEG dep, POLST now indicates no TF, diet now initiated on full liquid diet. *Increased kcal and protein needs r/t underweight status, wt loss, wound healing as evidenced by pt is 63% IBW, w/ generalized severe wasting, possible recent significant wt loss of 10 lbs/8.4% wt loss in 1 month, admitted w/ multiple wounds, including DTI @ sacrum. CURRENT DIET:Full Liquid diet, advanced as tolerated or as requested by pt PO DIET RECOMMENDATIONS: LIBERALIZED REGULAR/ texture per CHECK WRITER ADDITIONAL RECOMMENDATIONS: 1) Calibrated bedscale wt, weekly wts- recent wt loss, underweight 2) Monitor POC- comfort measures, no TF at this time 3) Wound healing- MVI x 1, Vit C 500mg QD, Demetri 1pkt BID 4) Ensure Enlive TID w/ meals 5) Updated labs as able .
--- NOTE | 2018-12-07 14:28 | NUR ---
NURSE NOTES: Patient on room air, no sign of distress and shortness of breath, no sign of chest pain; NO IV access MD aware; side rails up x2, breaks engaged, bed at lowest position; will keep monitoring.
--- NOTE | 2018-12-07 14:34 | Pulmonology Progress Note ---
Assessment/Plan Problems: (1) Severe malnutrition (2) Malfunction of gastrostomy tube (3) Diabetes mellitus type 2, insulin dependent (4) Schizoaffective disorder (5) History of left above knee amputation Assessment/Plan pt and his family refusing PEG placement will send him back to his [facility] will start on liquid seizure medication, Keppra and prn IM ativan All medications and treatment were reviewed., Subjective ROS Limited/Unobtainable: No Constitutional: Reports: no symptoms HEENT: Repors: no symptoms Allergies: Coded Allergies: DIVALPROEX SODIUM (Verified Allergy, Unknown, 06/01/18) PENICILLINS (Unverified Allergy, Unknown, 11/06/18) Tolerates cephalosporins Objective Last 24 Hour Vital Signs Date Time Temp Pulse Resp B/P (MAP) Pulse Ox O2 Delivery O2 Flow Rate FiO2 12/07/18 09:00 Room Air 12/07/18 08:00 97.9 90 19 94/69 (77) 99 12/07/18 04:00 18 12/07/18 00:00 18 12/06/18 21:00 Room Air 12/06/18 20:00 19 12/06/18 16:00 97.3 97 19 137/83 (101) 98 Intake and Output 12/06/18 12/07/18 18:59 06:59 Output Total 200 ml 550 ml Balance -200 ml -550 ml Output Urine Total 200 ml 550 ml Objective General Appearance: WD/WN Respiratory/Chest: chest wall non-tender, lungs clear Cardiovascular: normal peripheral pulses, regular rhythm Abdomen: normal bowel sounds Genitourinary: normal external genitalia Skin: no rash Microbiology Date/Time Source Procedure Growth Status 12/05/18 10:52 Urine,Clean Catch Urine Culture - Preliminary Escherichia Coli - Esbl Staphylococcus Aureus Resulted Current Medications Medications (Trade) Dose Ordered Sig/Cristofer Route PRN Reason Start Time Stop Time Status Last Admin Dose Admin Acetaminophen (Tylenol) 650 mg Q4H PRN ORAL fever 12/03/18 21:45 01/02/19 21:44 Al Hydroxide/Mg Hydroxide (Mylanta II) 30 ml Q6H PRN ORAL dyspepsia 12/03/18 21:45 01/02/19 21:44 Dextrose (Dextrose 50%) 25 ml Q30M PRN IV Hypoglycemia 12/03/18 21:45 01/02/19 21:44 Dextrose (Dextrose 50%) 50 ml Q30M PRN IV Hypoglycemia 12/03/18 21:45 01/02/19 21:44 Dextrose/Sodium Chloride 1,000 ml @ 75 mls/hr [id number] IV 12/03/18 21:45 01/02/19 21:44 12/05/18 01:38 Diphenhydramine HCl (Benadryl) 25 mg Q6H PRN ORAL Itching/Pruritis 12/03/18 21:45 01/02/19 21:44 Heparin Sodium (Porcine) (Heparin 5000 units/ml) 5,000 units EVERY 12 HOURS SUBQ 12/04/18 09:00 01/03/19 08:59 Levetiracetam 100 ml @ 400 mls/hr Q12HR IVPB 12/04/18 21:00 01/03/19 20:59 12/04/18 20:31 Lorazepam (Ativan 2mg/ml 1ml) 1 mg Q4H PRN IV agitation 12/03/18 21:45 12/10/18 21:44 Metoclopramide HCl (Reglan) 10 mg Q4H PRN IVP servere nausea 12/03/18 21:45 01/02/19 21:44 Metoprolol Tartrate (Lopressor) 25 mg Q12HR ORAL 12/04/18 21:00 01/03/19 20:59 Morphine Sulfate (Morphine Sulfate) 2 mg Q4H PRN IVP severe Pain (Pain Scale 7-10) 12/03/18 21:45 12/10/18 21:44 Nitroglycerin (Ntg) 0.4 mg Q5M X 3 DOSES PRN SL Prn Chest Pain 12/03/18 21:45 01/02/19 21:44 Ondansetron HCl (Zofran) 4 mg Q6H PRN IVP Nausea & Vomiting 12/03/18 21:45 01/02/19 21:44 Pantoprazole (Protonix) 40 mg DAILY IV 12/04/18 09:00 01/03/19 08:59 12/04/18 09:17 Polyethylene Glycol (Miralax) 17 gm HSPRN PRN ORAL Constipation 12/03/18 21:45 01/02/19 21:44 Promethazine HCl 25 mg/Sodium Chloride 56 ml @ 110 mls/hr Q6H PRN IV Refractory N/V 12/03/18 21:45 01/02/19 21:44 Temazepam (Restoril) 15 mg HSPRN PRN ORAL Insomnia 12/03/18 21:45 12/10/18 21:44 Dony Sanchez MD Dec 07, 2018 14:34
--- NOTE | 2018-12-07 15:20 | Surgery Progress Note ---
Surgery Progress Note Subjective Additional Comments pending discharge. no acute events. Objective Last 24 Hour Vital Signs Date Time Temp Pulse Resp B/P (MAP) Pulse Ox O2 Delivery O2 Flow Rate FiO2 12/07/18 09:00 Room Air 12/07/18 08:00 97.9 90 19 94/69 (77) 99 12/07/18 04:00 18 12/07/18 00:00 18 12/06/18 21:00 Room Air 12/06/18 20:00 19 12/06/18 16:00 97.3 97 19 137/83 (101) 98 I&O Intake and Output 12/06/18 12/07/18 19:00 07:00 Output Total 200 ml 550 ml Balance -200 ml -550 ml Output Urine Total 200 ml 550 ml Dressing: other Wound: other Drains: other Cardiovascular: RSR Respiratory: clear, decreased breath sounds Abdomen: soft, present bowel sounds, non-distended Extremities: other Plan Problems: (1) Malfunction of gastrostomy tube Assessment & Plan: Patient presents with dislodged gastric feeding tube. Prior site of tube near closed. As per gastrology no patient's prior records demonstrate no artificial feeding. PT HAS BEEN REFUSING NURSING CARE AND PO TRIALS. PER METAL ROASTER, SPOKE TO PT AND PT AGREED PO TRIALS. PT SEEN AT BEDSIDE IN PM. ALERT, ATTEMPTED PO TRIALS AND ORAL CARE. PT REFUSED BY SHAKING HIS HEAD AND LOOKING AWAY EVEN GIVEN MAX ENCOURAGEMENT. RN, MICHAEL BHARDWAJ, ALSO AT BEDSIDE TO ENCOURAGEMENT PT FOR PO TRIALS. HOWEVER, PT REFUSED. UNABLE TO FULLY ASSESS PT'S SWALLOWING FUNCTION. PER PT AND FAMILY WISHES, NO ARTIFICIAL FEEDING, INCLUDING TUBE FEEDING. IF PO IS GIVEN FOR QUALITY OF LIFE COMFORT FEEDING, CONSIDER LIQUIFIED PUREED, LIKE NECTAR THICK SOUP CONSISTENCY WITH NECTAR THICK LIQUIDS WITH STRICT ASPIRATION PRECAUTIONS WITH 1TO1 FEEDING. IV fluids refusing care plans d/c planning cont with wound instructions upon dc Shiv Horvath Dec 07, 2018 15:20
[2018-12-07 16:00] VITALS: BP 108/63
--- NOTE | 2018-12-07 16:04 | General Progress Note ---
Assessment/Plan Problem List: (1) Schizoaffective disorder ICD Codes: F25.9 - Schizoaffective disorder, unspecified SNOMED: 62022327 Status: stable Assessment/Plan haldol dec 25mg IM the pt lacks capacity to make decisions Subjective Date patient seen: Dec 07, 2018 Neurologic/Psychiatric: Reports: anxiety, depressed, emotional problems Allergies: Coded Allergies: DIVALPROEX SODIUM (Verified Allergy, Unknown, 06/01/18) PENICILLINS (Unverified Allergy, Unknown, 11/06/18) Tolerates cephalosporins Subjective the pt is rambling and is confused Objective Last 24 Hour Vital Signs Date Time Temp Pulse Resp B/P (MAP) Pulse Ox O2 Delivery O2 Flow Rate FiO2 12/07/18 09:00 Room Air 12/07/18 08:00 97.9 90 19 94/69 (77) 99 12/07/18 04:00 18 12/07/18 00:00 18 12/06/18 21:00 Room Air 12/06/18 20:00 19 Intake and Output 12/06/18 12/07/18 18:59 06:59 Output Total 200 ml 550 ml Balance -200 ml -550 ml Output Urine Total 200 ml 550 ml Height (Feet): 5 Height (Inches): 6.00 Weight (Pounds): 128 General Appearance: alert, confused Katherine Orozco MD Dec 07, 2018 16:04
--- NOTE | 2018-12-07 16:05 | General Progress Note ---
Assessment/Plan Problem List: (1) Schizoaffective disorder ICD Codes: F25.9 - Schizoaffective disorder, unspecified SNOMED: 96022118 Status: stable Assessment/Plan haldol dec 25mg IM the pt lacks capacity to make decisions Subjective Date patient seen: Dec 06, 2018 Neurologic/Psychiatric: Reports: anxiety, depressed Allergies: Coded Allergies: DIVALPROEX SODIUM (Verified Allergy, Unknown, 06/01/18) PENICILLINS (Unverified Allergy, Unknown, 11/06/18) Tolerates cephalosporins Subjective the pt is rambling and is confused [employer] was down last night/late entry the pt is delusional Objective Last 24 Hour Vital Signs Date Time Temp Pulse Resp B/P (MAP) Pulse Ox O2 Delivery O2 Flow Rate FiO2 12/07/18 09:00 Room Air 12/07/18 08:00 97.9 90 19 94/69 (77) 99 12/07/18 04:00 18 12/07/18 00:00 18 12/06/18 21:00 Room Air 12/06/18 20:00 19 Intake and Output 12/06/18 12/07/18 18:59 06:59 Output Total 200 ml 550 ml Balance -200 ml -550 ml Output Urine Total 200 ml 550 ml Height (Feet): 5 Height (Inches): 6.00 Weight (Pounds): 128 General Appearance: alert, confused, agitated Katherine Orozco MD Dec 07, 2018 16:05
--- NOTE | 2018-12-07 16:15 | Internal Med Progress Note ---
Subjective Physician Name Ean Joyce Attending Physician Ean Joyce MD Current Medications Medications (Trade) Dose Ordered Sig/Cristofer Route PRN Reason Start Time Stop Time Status Last Admin Dose Admin Acetaminophen (Tylenol) 650 mg Q4H PRN ORAL fever 12/03/18 21:45 01/02/19 21:44 Al Hydroxide/Mg Hydroxide (Mylanta II) 30 ml Q6H PRN ORAL dyspepsia 12/03/18 21:45 01/02/19 21:44 Dextrose (Dextrose 50%) 25 ml Q30M PRN IV Hypoglycemia 12/03/18 21:45 01/02/19 21:44 Dextrose (Dextrose 50%) 50 ml Q30M PRN IV Hypoglycemia 12/03/18 21:45 01/02/19 21:44 Dextrose/Sodium Chloride 1,000 ml @ 75 mls/hr [id number] IV 12/03/18 21:45 01/02/19 21:44 12/05/18 01:38 Diphenhydramine HCl (Benadryl) 25 mg Q6H PRN ORAL Itching/Pruritis 12/03/18 21:45 01/02/19 21:44 Haloperidol Decanoate (Haldol) 25 mg ONCE IM 12/07/18 17:30 12/07/18 18:30 Heparin Sodium (Porcine) (Heparin 5000 units/ml) 5,000 units EVERY 12 HOURS SUBQ 12/04/18 09:00 01/03/19 08:59 Levetiracetam 100 ml @ 400 mls/hr Q12HR IVPB 12/04/18 21:00 01/03/19 20:59 12/04/18 20:31 Lorazepam (Ativan 2mg/ml 1ml) 1 mg Q4H PRN IV agitation 12/03/18 21:45 12/10/18 21:44 Metoclopramide HCl (Reglan) 10 mg Q4H PRN IVP servere nausea 12/03/18 21:45 01/02/19 21:44 Metoprolol Tartrate (Lopressor) 25 mg Q12HR ORAL 12/04/18 21:00 01/03/19 20:59 Morphine Sulfate (Morphine Sulfate) 2 mg Q4H PRN IVP severe Pain (Pain Scale 7-10) 12/03/18 21:45 12/10/18 21:44 Nitroglycerin (Ntg) 0.4 mg Q5M X 3 DOSES PRN SL Prn Chest Pain 12/03/18 21:45 01/02/19 21:44 Ondansetron HCl (Zofran) 4 mg Q6H PRN IVP Nausea & Vomiting 12/03/18 21:45 01/02/19 21:44 Pantoprazole (Protonix) 40 mg DAILY IV 12/04/18 09:00 01/03/19 08:59 12/04/18 09:17 Polyethylene Glycol (Miralax) 17 gm HSPRN PRN ORAL Constipation 12/03/18 21:45 01/02/19 21:44 Promethazine HCl 25 mg/Sodium Chloride 56 ml @ 110 mls/hr Q6H PRN IV Refractory N/V 12/03/18 21:45 01/02/19 21:44 Temazepam (Restoril) 15 mg HSPRN PRN ORAL Insomnia 12/03/18 21:45 12/10/18 21:44 Allergies: Coded Allergies: DIVALPROEX SODIUM (Verified Allergy, Unknown, 06/01/18) PENICILLINS (Unverified Allergy, Unknown, 11/06/18) Tolerates cephalosporins Subjective Awake, responsive with opening his eyes, severely cachectic and malnutrition. Objective Last Vital Signs Date Time Temp Pulse Resp B/P (MAP) Pulse Ox O2 Delivery O2 Flow Rate FiO2 12/07/18 09:00 Room Air 12/07/18 08:00 97.9 90 19 94/69 (77) 99 Microbiology Date/Time Source Procedure Growth Status 12/05/18 10:52 Urine,Clean Catch Urine Culture - Preliminary Escherichia Coli - Esbl Staphylococcus Aureus Resulted Intake and Output 12/06/18 12/07/18 18:59 06:59 Output Total 200 ml 550 ml Balance -200 ml -550 ml Output Urine Total 200 ml 550 ml Objective GENERAL: The patient is awake, opens his eyes, cachectic with malnutrition, less agitated, and combative. HEAD AND NECK: Pupils equal and reactive to light. Anicteric. NECK: Supple. No JVD. LUNGS: poor air entry. No wheeze or rales. Poor inspiratory effort. HEART: S1 and S2. Distant heart sounds. No murmurs or gallops. ABDOMEN: Soft, not distended not tender, old G-tube site closed., EXTREMITIES: No cyanosis or clubbing. left AKA with intact stump, right heel ulceration with muscle atrophy in bilateral lower extremities. NEUROLOGIC: Cranial nerves II through XII grossly intact. The patient is moving all the extremities spontaneously. Assessment/Plan Assessment/Plan ASSESSMENT: 1. G-tube malfunctioning with dislodge. 2. Dysphagia, status post feeding tube placement. 3. Hypertension. 4. Diabetes, type 2. 5. Alzheimer dementia. 6. History of CVA. 7. ATN / acute kidney injury. 8. Acute toxic metabolic encephalopathy. 9. Severe protein-calorie malnutrition with cachexia. 10. Status post left BKA. PLAN: 1. In medical floor. 2. We will follow up with Dr. Sanchez from Pulmonary/Critical Care, from General Surgery, and Dr. Mcneil from Gastroenterology. 3. Code status is DNR/DNI. 4. DVT prophylaxis, heparin subcutaneous. 5. pt and his family refusing PEG placement 6. will send him back to his alf Ean Joyce M.D. Ean Joyce MD Dec 07, 2018 16:15
[2018-12-07] MEDS ORDERED: Haloperidol Decanoate 50mg Inj IM SCH (17:30)
--- NOTE | 2018-12-07 19:47 | NUR ---
HAND-OFF: Report given to JULIET Vines.
--- NOTE | 2018-12-07 19:48 | NUR ---
NURSE NOTES: Received patient in bed. A&OX1. Vargas draining well by gravity, yellow urine noted. No IV access noted, refused insert new IV. Patient refused assessment skin. Dressing on right foot dry and intact. Bed in lowest position. Call light within reach. Will continue to monitor.
[2018-12-07 20:00] VITALS: BP 105/59
--- NOTE | 2018-12-07 21:49 | NUR ---
NURSE NOTES: Patient refused change dressing. Explained risk and benefit but still refused.
[2018-12-08] VITALS: BP 102/57
[2018-12-08 04:00] VITALS: BP 128/53
--- NOTE | 2018-12-08 07:04 | NUR ---
HAND-OFF: Report given to Lisa VALDES.
--- NOTE | 2018-12-08 07:45 | NUR ---
NURSE NOTES: RECEIVED PATIENT A/A/OX2, DISORIENTED. ABLE TO VERBALIZE NEEDS. PATIENT DOES NOT HAVE IV ACCESS. EXPLAINED THE IMPORTANCE AND REMAINED REFUSED, STATED THAT "IT HURTS AND I DON'T WANT IT". PATIENT BECOMES COMBATIVE. KEPT NPO FOR GAGE ABD FOR TODAY. SIDERAILS ARE PADDED FOR SEIZURE PRECAUTIONS. P200 MATTRESS INPLACED. BED IN THE LOWEST POSITION. CALL LIGHT IS WITHIN REACH. WILL CONT TO MONITOR.
[2018-12-08 08:00] VITALS: BP 124/73
[2018-12-08] MEDS: D5 1/2NS 1,000 ML IV SCH ×2 (08:25→21:01)
[2018-12-08] MEDS: levETIRAcetam 500mg/NS100ml 100 ML IVPB SCH ×2 (08:35→21:00)
[2018-12-08] MEDS: Pantoprazole Inj IV SCH (08:35)
[2018-12-08] MEDS: Metoprolol 25mg tab ORAL SCH ×2 (08:35→21:00)
[2018-12-08] MEDS: Heparin 5000 units/ml inj SUBQ SCH ×2 (08:35→21:00)
--- NOTE | 2018-12-08 09:20 | NUR ---
NURSE NOTES: PATIENT APPEARED NONCOMPLIANT WITH MEDICATIONS REGIMEN. EXPLAINED THE INDICATIONS AND REMAINED REFUSED. NO ACUTE RESP DISTRESS NOTED. WILL CONT TO MONITOR.
--- NOTE | 2018-12-08 11:33 | NUR ---
NURSE NOTES: able to changed dressing on gtube stoma cleanse with NS, pat dry and cover with 4x4 gauze and secured with paper tape. No leakage and drainage noted. Patient is calm and comfortable @ this time. will cont to monitor
[2018-12-08 12:00] VITALS: BP 129/81
--- NOTE | 2018-12-08 14:18 | Internal Med Progress Note ---
Subjective Date of Service: Dec 08, 2018 Physician Name Manjinder Marley Attending Physician Ean Joyce MD Current Medications Medications (Trade) Dose Ordered Sig/Cristofer Route PRN Reason Start Time Stop Time Status Last Admin Dose Admin Acetaminophen (Tylenol) 650 mg Q4H PRN ORAL fever 12/03/18 21:45 01/02/19 21:44 Al Hydroxide/Mg Hydroxide (Mylanta II) 30 ml Q6H PRN ORAL dyspepsia 12/03/18 21:45 01/02/19 21:44 Dextrose (Dextrose 50%) 25 ml Q30M PRN IV Hypoglycemia 12/03/18 21:45 01/02/19 21:44 Dextrose (Dextrose 50%) 50 ml Q30M PRN IV Hypoglycemia 12/03/18 21:45 01/02/19 21:44 Dextrose/Sodium Chloride 1,000 ml @ 75 mls/hr [id number] IV 12/03/18 21:45 01/02/19 21:44 12/05/18 01:38 Diphenhydramine HCl (Benadryl) 25 mg Q6H PRN ORAL Itching/Pruritis 12/03/18 21:45 01/02/19 21:44 Heparin Sodium (Porcine) (Heparin 5000 units/ml) 5,000 units EVERY 12 HOURS SUBQ 12/04/18 09:00 01/03/19 08:59 Levetiracetam 100 ml @ 400 mls/hr Q12HR IVPB 12/04/18 21:00 01/03/19 20:59 12/04/18 20:31 Lorazepam (Ativan 2mg/ml 1ml) 1 mg Q4H PRN IV agitation 12/03/18 21:45 12/10/18 21:44 Metoclopramide HCl (Reglan) 10 mg Q4H PRN IVP servere nausea 12/03/18 21:45 01/02/19 21:44 Metoprolol Tartrate (Lopressor) 25 mg Q12HR ORAL 12/04/18 21:00 01/03/19 20:59 Morphine Sulfate (Morphine Sulfate) 2 mg Q4H PRN IVP severe Pain (Pain Scale 7-10) 12/03/18 21:45 12/10/18 21:44 Nitroglycerin (Ntg) 0.4 mg Q5M X 3 DOSES PRN SL Prn Chest Pain 12/03/18 21:45 01/02/19 21:44 Ondansetron HCl (Zofran) 4 mg Q6H PRN IVP Nausea & Vomiting 12/03/18 21:45 01/02/19 21:44 Pantoprazole (Protonix) 40 mg DAILY IV 12/04/18 09:00 01/03/19 08:59 12/04/18 09:17 Polyethylene Glycol (Miralax) 17 gm HSPRN PRN ORAL Constipation 12/03/18 21:45 01/02/19 21:44 Promethazine HCl 25 mg/Sodium Chloride 56 ml @ 110 mls/hr Q6H PRN IV Refractory N/V 12/03/18 21:45 01/02/19 21:44 Temazepam (Restoril) 15 mg HSPRN PRN ORAL Insomnia 12/03/18 21:45 12/10/18 21:44 Allergies: Coded Allergies: DIVALPROEX SODIUM (Verified Allergy, Unknown, 06/01/18) PENICILLINS (Unverified Allergy, Unknown, 11/06/18) Tolerates cephalosporins ROS Limited/Unobtainable: Yes Subjective 58 YO M admitted with G-tube malunction. Cover for Int tasha-Dr Joyce Objective Last Vital Signs Date Time Temp Pulse Resp B/P (MAP) Pulse Ox O2 Delivery O2 Flow Rate FiO2 12/08/18 12:00 97.8 71 19 129/81 (97) 99 12/08/18 09:00 Room Air Intake and Output 12/07/18 12/08/18 19:00 07:00 Intake Total 1800 ml Output Total 400 ml 400 ml Balance 1400 ml -400 ml Other 1800 ml Output Urine Total 400 ml 400 ml Objective Objective GENERAL: The patient is awake, opens his eyes, cachectic with malnutrition, less agitated, and combative. HEAD AND NECK: Pupils equal and reactive to light. Anicteric. NECK: Supple. No JVD. LUNGS: poor air entry. No wheeze or rales. Poor inspiratory effort. HEART: S1 and S2. Distant heart sounds. No murmurs or gallops. ABDOMEN: Soft, not distended not tender, old G-tube site closed., EXTREMITIES: No cyanosis or clubbing. left AKA with intact stump, right heel ulceration with muscle atrophy in bilateral lower extremities. NEUROLOGIC: Cranial nerves II through XII grossly intact. The patient is moving all the extremities spontaneously. Assessment/Plan Assessment/Plan Assessment/Plan Assessment/Plan Assessment/Plan ASSESSMENT: 1. G-tube malfunctioning with dislodge. 2. Dysphagia, status post feeding tube placement. 3. Hypertension. 4. Diabetes, type 2. 5. Alzheimer dementia. 6. History of CVA. 7. ATN / acute kidney injury. 8. Acute toxic metabolic encephalopathy. 9. Severe protein-calorie malnutrition with cachexia. 10. Status post left BKA. PLAN: 1. In medical floor. 2. We will follow up with Dr. Sanchez from Pulmonary/Critical Care, from General Surgery, and Dr. Mcneil from Gastroenterology. 3. Code status is DNR/DNI. 4. DVT prophylaxis, heparin subcutaneous. 5. We will try to get consent for the possible PEG placement soon. 6. Monitor laboratory. 7. Defer PEG, follow up bioethics and ST evaluation. 8. Discharge planning Manjinder Marley MD Dec 08, 2018 14:18
--- NOTE | 2018-12-08 14:35 | NUR ---
NURSE NOTES: patient refused for wound care treatment. unable to assess wound, patient is noncompliant. will cont to monitor.
[2018-12-08 16:00] VITALS: BP 109/71
--- NOTE | 2018-12-08 18:09 | NUR ---
NURSE NOTES: Finally, able to encourage patient to eat. He was able to consume 75% dinner and interacts more. will cont to monitor.
--- NOTE | 2018-12-08 19:00 | NUR ---
NURSE NOTES: Received a report from LUCIO Berkowitz. Pt is in stable condition. AAOX3. Able to make needs known. No respiratory distress noted. On room air. No IV access, doctors are aware. Bed in lowest position. Bed alarm is on. Call light within reach. Will continue to monitor.
--- NOTE | 2018-12-08 19:02 | NUR ---
HAND-OFF: Report given to Bonita.
--- NOTE | 2018-12-08 19:24 | Pulmonology Progress Note ---
Assessment/Plan Problems: (1) Severe malnutrition (2) Malfunction of gastrostomy tube (3) Diabetes mellitus type 2, insulin dependent (4) Schizoaffective disorder (5) History of left above knee amputation Assessment/Plan pt and his family refusing PEG placement will send him back to his care home will start on liquid seizure medication, Keppra and prn IM ativan All medications and treatment were reviewed., Subjective ROS Limited/Unobtainable: No Constitutional: Reports: no symptoms HEENT: Repors: no symptoms Respiratory: Reports: no symptoms Allergies: Coded Allergies: DIVALPROEX SODIUM (Verified Allergy, Unknown, 06/01/18) PENICILLINS (Unverified Allergy, Unknown, 11/06/18) Tolerates cephalosporins Objective Last 24 Hour Vital Signs Date Time Temp Pulse Resp B/P (MAP) Pulse Ox O2 Delivery O2 Flow Rate FiO2 12/08/18 16:00 97.8 86 18 109/71 (84) 99 12/08/18 12:00 97.8 71 19 129/81 (97) 99 12/08/18 09:00 Room Air 12/08/18 08:00 98.2 67 19 124/73 (90) 100 12/08/18 04:00 97.1 55 18 128/53 (78) 99 12/08/18 00:00 97.8 58 18 102/57 (72) 97 12/07/18 21:00 57 105/59 12/07/18 21:00 Room Air 12/07/18 20:00 97.2 57 18 105/59 (74) 98 Intake and Output 12/07/18 12/08/18 18:59 06:59 Intake Total 1800 ml Output Total 400 ml 400 ml Balance 1400 ml -400 ml Other 1800 ml Output Urine Total 400 ml 400 ml Objective General Appearance: WD/WN Respiratory/Chest: chest wall non-tender, lungs clear Cardiovascular: normal peripheral pulses, regular rhythm Abdomen: normal bowel sounds Genitourinary: normal external genitalia Skin: no rash Current Medications Medications (Trade) Dose Ordered Sig/Cristofer Route PRN Reason Start Time Stop Time Status Last Admin Dose Admin Acetaminophen (Tylenol) 650 mg Q4H PRN ORAL fever 12/03/18 21:45 01/02/19 21:44 Al Hydroxide/Mg Hydroxide (Mylanta II) 30 ml Q6H PRN ORAL dyspepsia 12/03/18 21:45 01/02/19 21:44 Dextrose (Dextrose 50%) 25 ml Q30M PRN IV Hypoglycemia 12/03/18 21:45 01/02/19 21:44 Dextrose (Dextrose 50%) 50 ml Q30M PRN IV Hypoglycemia 12/03/18 21:45 01/02/19 21:44 Dextrose/Sodium Chloride 1,000 ml @ 75 mls/hr [id number] IV 12/03/18 21:45 01/02/19 21:44 12/05/18 01:38 Diphenhydramine HCl (Benadryl) 25 mg Q6H PRN ORAL Itching/Pruritis 12/03/18 21:45 01/02/19 21:44 Heparin Sodium (Porcine) (Heparin 5000 units/ml) 5,000 units EVERY 12 HOURS SUBQ 12/04/18 09:00 01/03/19 08:59 Levetiracetam 100 ml @ 400 mls/hr Q12HR IVPB 12/04/18 21:00 01/03/19 20:59 12/04/18 20:31 Lorazepam (Ativan 2mg/ml 1ml) 1 mg Q4H PRN IV agitation 12/03/18 21:45 12/10/18 21:44 Metoclopramide HCl (Reglan) 10 mg Q4H PRN IVP servere nausea 12/03/18 21:45 01/02/19 21:44 Metoprolol Tartrate (Lopressor) 25 mg Q12HR ORAL 12/04/18 21:00 01/03/19 20:59 Morphine Sulfate (Morphine Sulfate) 2 mg Q4H PRN IVP severe Pain (Pain Scale 7-10) 12/03/18 21:45 12/10/18 21:44 Nitroglycerin (Ntg) 0.4 mg Q5M X 3 DOSES PRN SL Prn Chest Pain 12/03/18 21:45 01/02/19 21:44 Ondansetron HCl (Zofran) 4 mg Q6H PRN IVP Nausea & Vomiting 12/03/18 21:45 01/02/19 21:44 Pantoprazole (Protonix) 40 mg DAILY IV 12/04/18 09:00 01/03/19 08:59 12/04/18 09:17 Polyethylene Glycol (Miralax) 17 gm HSPRN PRN ORAL Constipation 12/03/18 21:45 01/02/19 21:44 Promethazine HCl 25 mg/Sodium Chloride 56 ml @ 110 mls/hr Q6H PRN IV Refractory N/V 12/03/18 21:45 01/02/19 21:44 Temazepam (Restoril) 15 mg HSPRN PRN ORAL Insomnia 12/03/18 21:45 12/10/18 21:44 Dony Sanchez MD Dec 08, 2018 19:24
[2018-12-08 20:00] VITALS: BP 111/76
--- NOTE | 2018-12-08 21:00 | NUR ---
NURSE NOTES: Offered to insert an IV, but pt refused. Pt also refused all of the meds, wound pictures to be taken, and accu-check despite education provided. Charge Nurse Chloé made aware. Will continue to monitor.
--- NOTE | 2018-12-08 22:22 | NUR ---
NURSE NOTES: Pt is covered with poop, but refused to be cleaned. He tried to hit the staff with an IV pole. He is agitated. Bonita RN tried to calm him down but pt became violent towards the RN. Charge Nurse Chloé made aware. Contacted Dr. Orozco for the Ativan 1mg IV to be replaced with IM since pt does not have an IV access. Waiting for Dr. Orozco's response.
[2018-12-08] MEDS ORDERED: LORazepam Inj 2mg/ml 1ml IM PRN (23:30)
--- NOTE | 2018-12-09 00:36 | General Progress Note ---
Assessment/Plan Problem List: (1) Schizoaffective disorder ICD Codes: F25.9 - Schizoaffective disorder, unspecified SNOMED: [id number] Status: unchanged Assessment/Plan Haldol dec 25mg IM the pt lacks capacity to make decisions Subjective Neurologic/Psychiatric: Reports: anxiety, depressed Allergies: Coded Allergies: DIVALPROEX SODIUM (Verified Allergy, Unknown, 06/01/18) PENICILLINS (Unverified Allergy, Unknown, 11/06/18) Tolerates cephalosporins Subjective the pt is disorganized and confused the pt has waxing and waning Objective Last 24 Hour Vital Signs Date Time Temp Pulse Resp B/P (MAP) Pulse Ox O2 Delivery O2 Flow Rate FiO2 12/08/18 21:01 Room Air 12/08/18 20:00 97.5 108 18 111/76 (88) 96 12/08/18 16:00 97.8 86 18 109/71 (84) 99 12/08/18 12:00 97.8 71 19 129/81 (97) 99 12/08/18 09:00 Room Air 12/08/18 08:00 98.2 67 19 124/73 (90) 100 12/08/18 04:00 97.1 55 18 128/53 (78) 99 Intake and Output 12/08/18 12/09/18 19:00 07:00 Intake Total 240 ml Balance 240 ml Intake Oral 240 ml Height (Feet): 5 Height (Inches): 6.00 Weight (Pounds): 128 General Appearance: alert, confused, thin Katherine Orozco MD Dec 09, 2018 00:36
[2018-12-09 04:00] VITALS: BP 123/76
--- NOTE | 2018-12-09 07:38 | NUR ---
HAND-OFF: Report given to JULIET Rodriguez.
[2018-12-09 08:00] VITALS: BP 107/72
[2018-12-09] MEDS: Pantoprazole Inj IV SCH (09:00)
[2018-12-09] MEDS: Heparin 5000 units/ml inj SUBQ SCH ×2 (09:00→21:00)
[2018-12-09] MEDS: Metoprolol 25mg tab ORAL SCH ×2 (09:00→21:00)
[2018-12-09] MEDS: levETIRAcetam 500mg/NS100ml 100 ML IVPB SCH ×2 (09:00→21:00)
[2018-12-09] MEDS: D5 1/2NS 1,000 ML IV SCH (11:05)
[2018-12-09 12:00] VITALS: BP 130/76
--- NOTE | 2018-12-09 14:08 | NUR ---
CASE MANAGEMENT: REVIEW SI: DEHYDRATION . MALFUNCTION OF GASTROSTOMY TUBE T 97.4 HR 110 RR 18 BP 130/76 SAT 98% ROOM AIR IS: LOPRESSOR PO Q12HR HEPARIN SQ Q12HR KEPPRA IV Q12HR D5 1/2 NS IVF @ 75ML/HR SOFT PO DIET 1:1 FEED ASSIST FOR ASPIRATION PRECAUTION MED/SURG STATUS DCP: PATIENT IS FROM [facility]
--- NOTE | 2018-12-09 14:14 | NUR ---
CASE MANAGEMENT: REVIEW SI: DEHYDRATION . MALFUNCTION OF GASTROSTOMY TUBE T 97.1 HR 55 RR 18 BP 128/53 SAT 99% ROOM AIR IS: LOPRESSOR PO Q12HR HEPARIN SQ Q12HR KEPPRA IV Q12HR D5 1/2 NS IVF @ 75ML/HR SOFT PO DIET 1:1 FEED ASSIST FOR ASPIRATION PRECAUTION MED/SURG STATUS DCP: PATIENT IS FROM [facility] Addendum: 12/09/18 at 1415 by SARAH ANDERSON CM REVIEW FOR 12/08/2018
--- NOTE | 2018-12-09 14:38 | Pulmonology Progress Note ---
Assessment/Plan Problems: (1) Severe malnutrition (2) Malfunction of gastrostomy tube (3) Diabetes mellitus type 2, insulin dependent (4) Schizoaffective disorder (5) History of left above knee amputation Assessment/Plan pt and his family refusing PEG placement will send him back to his skilled nursing will start on liquid seizure medication, Keppra and prn IM ativan All medications and treatment were reviewed., Subjective ROS Limited/Unobtainable: No Constitutional: Reports: no symptoms HEENT: Repors: no symptoms Respiratory: Reports: no symptoms Allergies: Coded Allergies: DIVALPROEX SODIUM (Verified Allergy, Unknown, 06/01/18) PENICILLINS (Unverified Allergy, Unknown, 11/06/18) Tolerates cephalosporins Objective Last 24 Hour Vital Signs Date Time Temp Pulse Resp B/P (MAP) Pulse Ox O2 Delivery O2 Flow Rate FiO2 12/09/18 12:00 97.4 100 18 130/76 (94) 98 12/09/18 09:00 Room Air 12/09/18 09:00 110 107/72 12/09/18 08:00 97.4 110 18 107/72 (84) 97 12/09/18 04:00 97.4 108 17 123/76 (92) 95 12/08/18 21:01 Room Air 12/08/18 20:00 97.5 108 18 111/76 (88) 96 12/08/18 16:00 97.8 86 18 109/71 (84) 99 Intake and Output 12/08/18 12/09/18 19:00 07:00 Intake Total 240 ml 240 ml Output Total 950 ml Balance 240 ml -710 ml Intake Oral 240 ml 240 ml Output Urine Total 950 ml Objective General Appearance: WD/WN Respiratory/Chest: chest wall non-tender, lungs clear Cardiovascular: normal peripheral pulses, regular rhythm Abdomen: normal bowel sounds Genitourinary: normal external genitalia Skin: no rash Current Medications Medications (Trade) Dose Ordered Sig/Cristofer Route PRN Reason Start Time Stop Time Status Last Admin Dose Admin Acetaminophen (Tylenol) 650 mg Q4H PRN ORAL fever 12/03/18 21:45 01/02/19 21:44 Al Hydroxide/Mg Hydroxide (Mylanta II) 30 ml Q6H PRN ORAL dyspepsia 12/03/18 21:45 01/02/19 21:44 Dextrose (Dextrose 50%) 25 ml Q30M PRN IV Hypoglycemia 12/03/18 21:45 01/02/19 21:44 Dextrose (Dextrose 50%) 50 ml Q30M PRN IV Hypoglycemia 12/03/18 21:45 01/02/19 21:44 Dextrose/Sodium Chloride 1,000 ml @ 75 mls/hr [id number] IV 12/03/18 21:45 01/02/19 21:44 12/05/18 01:38 Diphenhydramine HCl (Benadryl) 25 mg Q6H PRN ORAL Itching/Pruritis 12/03/18 21:45 01/02/19 21:44 Heparin Sodium (Porcine) (Heparin 5000 units/ml) 5,000 units EVERY 12 HOURS SUBQ 12/04/18 09:00 01/03/19 08:59 Levetiracetam 100 ml @ 400 mls/hr Q12HR IVPB 12/04/18 21:00 01/03/19 20:59 12/04/18 20:31 Lorazepam (Ativan 2mg/ml 1ml) 1 mg Q4H PRN IM agitation 12/08/18 23:30 12/15/18 23:29 12/09/18 01:39 Metoclopramide HCl (Reglan) 10 mg Q4H PRN IVP servere nausea 12/03/18 21:45 01/02/19 21:44 Metoprolol Tartrate (Lopressor) 25 mg Q12HR ORAL 12/04/18 21:00 01/03/19 20:59 Morphine Sulfate (Morphine Sulfate) 2 mg Q4H PRN IVP severe Pain (Pain Scale 7-10) 12/03/18 21:45 12/10/18 21:44 Nitroglycerin (Ntg) 0.4 mg Q5M X 3 DOSES PRN SL Prn Chest Pain 12/03/18 21:45 01/02/19 21:44 Ondansetron HCl (Zofran) 4 mg Q6H PRN IVP Nausea & Vomiting 12/03/18 21:45 01/02/19 21:44 Pantoprazole (Protonix) 40 mg DAILY IV 12/04/18 09:00 01/03/19 08:59 12/04/18 09:17 Polyethylene Glycol (Miralax) 17 gm HSPRN PRN ORAL Constipation 12/03/18 21:45 01/02/19 21:44 Promethazine HCl 25 mg/Sodium Chloride 56 ml @ 110 mls/hr Q6H PRN IV Refractory N/V 12/03/18 21:45 01/02/19 21:44 Temazepam (Restoril) 15 mg HSPRN PRN ORAL Insomnia 12/03/18 21:45 12/10/18 21:44 Dony Sanchez MD Dec 09, 2018 14:38
--- NOTE | 2018-12-09 15:46 | Internal Med Progress Note ---
Subjective Date of Service: Dec 09, 2018 Physician Name Manjinder Marley Attending Physician Ean Joyce MD Current Medications Medications (Trade) Dose Ordered Sig/Cristofer Route PRN Reason Start Time Stop Time Status Last Admin Dose Admin Acetaminophen (Tylenol) 650 mg Q4H PRN ORAL fever 12/03/18 21:45 01/02/19 21:44 Al Hydroxide/Mg Hydroxide (Mylanta II) 30 ml Q6H PRN ORAL dyspepsia 12/03/18 21:45 01/02/19 21:44 Dextrose (Dextrose 50%) 25 ml Q30M PRN IV Hypoglycemia 12/03/18 21:45 01/02/19 21:44 Dextrose (Dextrose 50%) 50 ml Q30M PRN IV Hypoglycemia 12/03/18 21:45 01/02/19 21:44 Dextrose/Sodium Chloride 1,000 ml @ 75 mls/hr [id number] IV 12/03/18 21:45 01/02/19 21:44 12/05/18 01:38 Diphenhydramine HCl (Benadryl) 25 mg Q6H PRN ORAL Itching/Pruritis 12/03/18 21:45 01/02/19 21:44 Heparin Sodium (Porcine) (Heparin 5000 units/ml) 5,000 units EVERY 12 HOURS SUBQ 12/04/18 09:00 01/03/19 08:59 Levetiracetam 100 ml @ 400 mls/hr Q12HR IVPB 12/04/18 21:00 01/03/19 20:59 12/04/18 20:31 Lorazepam (Ativan 2mg/ml 1ml) 1 mg Q4H PRN IM agitation 12/08/18 23:30 12/15/18 23:29 12/09/18 01:39 Metoclopramide HCl (Reglan) 10 mg Q4H PRN IVP servere nausea 12/03/18 21:45 01/02/19 21:44 Metoprolol Tartrate (Lopressor) 25 mg Q12HR ORAL 12/04/18 21:00 01/03/19 20:59 Morphine Sulfate (Morphine Sulfate) 2 mg Q4H PRN IVP severe Pain (Pain Scale 7-10) 12/03/18 21:45 12/10/18 21:44 Nitroglycerin (Ntg) 0.4 mg Q5M X 3 DOSES PRN SL Prn Chest Pain 12/03/18 21:45 01/02/19 21:44 Ondansetron HCl (Zofran) 4 mg Q6H PRN IVP Nausea & Vomiting 12/03/18 21:45 01/02/19 21:44 Pantoprazole (Protonix) 40 mg DAILY IV 12/04/18 09:00 01/03/19 08:59 12/04/18 09:17 Polyethylene Glycol (Miralax) 17 gm HSPRN PRN ORAL Constipation 12/03/18 21:45 01/02/19 21:44 Promethazine HCl 25 mg/Sodium Chloride 56 ml @ 110 mls/hr Q6H PRN IV Refractory N/V 12/03/18 21:45 01/02/19 21:44 Temazepam (Restoril) 15 mg HSPRN PRN ORAL Insomnia 12/03/18 21:45 12/10/18 21:44 Allergies: Coded Allergies: DIVALPROEX SODIUM (Verified Allergy, Unknown, 06/01/18) PENICILLINS (Unverified Allergy, Unknown, 11/06/18) Tolerates cephalosporins ROS Limited/Unobtainable: Yes Subjective 58 YO M admitted with G-tube malunction. Cover for Int med-Dr Joyce Objective Last Vital Signs Date Time Temp Pulse Resp B/P (MAP) Pulse Ox O2 Delivery O2 Flow Rate FiO2 12/09/18 12:00 97.4 100 18 130/76 (94) 98 12/09/18 09:00 Room Air Intake and Output 12/08/18 12/09/18 19:00 07:00 Intake Total 240 ml 240 ml Output Total 950 ml Balance 240 ml -710 ml Intake Oral 240 ml 240 ml Output Urine Total 950 ml Objective Objective GENERAL: The patient is awake, opens his eyes, cachectic with malnutrition, less agitated, and combative. HEAD AND NECK: Pupils equal and reactive to light. Anicteric. NECK: Supple. No JVD. LUNGS: poor air entry. No wheeze or rales. Poor inspiratory effort. HEART: S1 and S2. Distant heart sounds. No murmurs or gallops. ABDOMEN: Soft, not distended not tender, old G-tube site closed., EXTREMITIES: No cyanosis or clubbing. left AKA with intact stump, right heel ulceration with muscle atrophy in bilateral lower extremities. NEUROLOGIC: Cranial nerves II through XII grossly intact. The patient is moving all the extremities spontaneously. Assessment/Plan Assessment/Plan Assessment/Plan Assessment/Plan Assessment/Plan ASSESSMENT: 1. G-tube malfunctioning with dislodge. 2. Dysphagia, status post feeding tube placement. 3. Hypertension. 4. Diabetes, type 2. 5. Alzheimer dementia. 6. History of CVA. 7. ATN / acute kidney injury. 8. Acute toxic metabolic encephalopathy. 9. Severe protein-calorie malnutrition with cachexia. 10. Status post left BKA. PLAN: 1. In medical floor. 2. We will follow up with Dr. Sanchez from Pulmonary/Critical Care, from General Surgery, and Dr. Mcneil from Gastroenterology. 3. Code status is DNR/DNI. 4. DVT prophylaxis, heparin subcutaneous. 5. We will try to get consent for the possible PEG placement soon. 6. Monitor laboratory. 7. Defer PEG, follow up bioethics and ST evaluation. 8. Discharge planning Manjinder Marley MD Dec 09, 2018 15:46
[2018-12-09 16:00] VITALS: BP 118/78
--- NOTE | 2018-12-09 19:30 | NUR ---
HAND-OFF: Report given to JULIET Araujo.
--- NOTE | 2018-12-09 19:35 | NUR ---
NURSE NOTES: Received a report from JULIET Rodriguez. Pt is in stable condition. Sleeping comfortably. No respiratory distress noted. On room air. No IV access, doctors are aware. Bed in lowest position. Bed alarm is on. Call light within reach. Will continue to monitor.
[2018-12-09 20:00] VITALS: BP 106/70
--- NOTE | 2018-12-09 21:00 | NUR ---
NURSE NOTES: Pt is non-compliant. He refused meds, accu-check, and other nursing care despite education provided.
--- NOTE | 2018-12-09 21:45 | Surgery Progress Note ---
Surgery Progress Note Subjective Additional Comments no acute events. discharge planning. dnr/dni. refusing care. Objective Last 24 Hour Vital Signs Date Time Temp Pulse Resp B/P (MAP) Pulse Ox O2 Delivery O2 Flow Rate FiO2 12/09/18 16:00 97.2 105 19 118/78 (91) 98 12/09/18 12:00 97.4 100 18 130/76 (94) 98 12/09/18 09:00 Room Air 12/09/18 09:00 110 107/72 12/09/18 08:00 97.4 110 18 107/72 (84) 97 12/09/18 04:00 97.4 108 17 123/76 (92) 95 I&O Intake and Output 12/08/18 12/09/18 18:59 06:59 Intake Total 240 ml 240 ml Output Total 950 ml Balance 240 ml -710 ml Intake Oral 240 ml 240 ml Output Urine Total 950 ml Plan Problems: (1) Malfunction of gastrostomy tube Assessment & Plan: Patient presents with dislodged gastric feeding tube. Prior site of tube near closed. As per gastrology no patient's prior records demonstrate no artificial feeding. PT HAS BEEN REFUSING NURSING CARE AND PO TRIALS. PER FORMULA CLERK, SPOKE TO PT AND PT AGREED PO TRIALS. PT SEEN AT BEDSIDE IN PM. ALERT, ATTEMPTED PO TRIALS AND ORAL CARE. PT REFUSED BY SHAKING HIS HEAD AND LOOKING AWAY EVEN GIVEN MAX ENCOURAGEMENT. RN, MICHAEL BHARDWAJ, ALSO AT BEDSIDE TO ENCOURAGEMENT PT FOR PO TRIALS. HOWEVER, PT REFUSED. UNABLE TO FULLY ASSESS PT'S SWALLOWING FUNCTION. PER PT AND FAMILY WISHES, NO ARTIFICIAL FEEDING, INCLUDING TUBE FEEDING. IF PO IS GIVEN FOR QUALITY OF LIFE COMFORT FEEDING, CONSIDER LIQUIFIED PUREED, LIKE NECTAR THICK SOUP CONSISTENCY WITH NECTAR THICK LIQUIDS WITH STRICT ASPIRATION PRECAUTIONS WITH 1TO1 FEEDING. IV fluids refusing care plans d/c planning cont with wound instructions upon dc Shiv Horvath Dec 09, 2018 21:45
--- NOTE | 2018-12-09 22:00 | NUR ---
NURSE NOTES: Pt refused the dressings to be changed. He is resistive to care.
[2018-12-10] MEDS: D5 1/2NS 1,000 ML IV SCH ×2 (00:25→13:45)
--- NOTE | 2018-12-10 07:15 | NUR ---
HAND-OFF: Report given to JULIET Rodriguez.
[2018-12-10 07:44] LABS: HEMATOCRIT 37.2 % (42.0-52.0); HEMOGLOBIN 12.4 G/DL (14.2-18.0); MEAN CORPUSCULAR VOLUME 92 FL (80-99); PLATELET COUNT 124 K/UL (150-450); RED BLOOD COUNT 4.06 M/UL (4.70-6.10); RED CELL DISTRIBUTION WIDTH 12.5 % (11.6-14.8); WHITE BLOOD COUNT 7.2 K/UL (4.8-10.8)
[2018-12-10 08:00] VITALS: BP 113/76
[2018-12-10 08:02] LABS: ANION GAP 11 mmol/L (5-15); BLOOD UREA NITROGEN 8 mg/dL (7-18); CARBON DIOXIDE 28 MMOL/L (21-32); CHLORIDE 108 MMOL/L (98-107); CREATININE 0.6 MG/DL (0.55-1.30); SODIUM 146 MMOL/L (136-145)
[2018-12-10 08:04] LABS: POTASSIUM 2.7 MMOL/L (3.5-5.1)
[2018-12-10] MEDS: Pantoprazole Inj IV SCH (09:00)
[2018-12-10] MEDS: levETIRAcetam 500mg/NS100ml 100 ML IVPB SCH ×2 (09:00→20:21)
[2018-12-10] MEDS: Metoprolol 25mg tab ORAL SCH ×2 (09:00→21:00)
[2018-12-10] MEDS: Heparin 5000 units/ml inj SUBQ SCH ×2 (09:00→20:21)
--- NOTE | 2018-12-10 10:28 | General Progress Note ---
Assessment/Plan Problem List: (1) Hematuria ICD Codes: R31.9 - Hematuria, unspecified SNOMED: 27462113 (2) Severe malnutrition ICD Codes: E43 - Unspecified severe protein-calorie malnutrition SNOMED: 79480548 (3) Diabetes mellitus type 2, insulin dependent ICD Codes: E11.9 - Type 2 diabetes mellitus without complications; Z79.4 - penitentiary (current) use of insulin SNOMED: 941181222 (4) Schizoaffective disorder ICD Codes: F25.9 - Schizoaffective disorder, unspecified SNOMED: 99342614 (5) HTN (hypertension) ICD Codes: I10 - Essential (primary) hypertension SNOMED: 82491398 Assessment/Plan POLST reviewed noted with no artificial feeding. patient refusing all care, brother wants to respect patients wishes refusing to try to eat or drink recommend hospice care No plans for PEG placement. advance diet dc planning Subjective ROS Limited/Unobtainable: No Allergies: Coded Allergies: DIVALPROEX SODIUM (Verified Allergy, Unknown, 06/01/18) PENICILLINS (Unverified Allergy, Unknown, 11/06/18) Tolerates cephalosporins Objective Last 24 Hour Vital Signs Date Time Temp Pulse Resp B/P (MAP) Pulse Ox O2 Delivery O2 Flow Rate FiO2 12/10/18 08:00 97.5 101 18 113/76 (88) 100 12/09/18 21:00 Room Air 12/09/18 20:00 97.8 107 17 106/70 (82) 98 12/09/18 16:00 97.2 105 19 118/78 (91) 98 12/09/18 12:00 97.4 100 18 130/76 (94) 98 Intake and Output 12/09/18 12/10/18 19:00 07:00 Intake Total 480 ml Output Total 950 ml 500 ml Balance -470 ml -500 ml Intake Oral 480 ml Output Urine Total 950 ml 500 ml # Bowel Movements 1 Laboratory Tests 12/10/18 07:00: White Blood Count 7.2, Red Blood Count 4.06L, Hemoglobin 12.4L, Hematocrit 37.2L , Mean Corpuscular Volume 92, Mean Corpuscular Hemoglobin 30.6, Mean Corpuscular Hemoglobin Concent 33.4, Red Cell Distribution Width 12.5, Platelet Count 124L, Mean Platelet Volume 11.5H, Neutrophils (%) (Auto) , Lymphocytes (% ) (Auto) , Monocytes (%) (Auto) , Eosinophils (%) (Auto) , Basophils (%) (Auto) , Neutrophils % (Manual) [Pending], Lymphocytes % (Manual) [Pending], Platelet Estimate [Pending], Platelet Morphology [Pending], Sodium Level 146H, Potassium Level 2.7*L, Chloride Level 108H, Carbon Dioxide Level 28, Anion Gap 11, Blood Urea Nitrogen 8, Creatinine 0.6, Estimat Glomerular Filtration Rate > 60, Glucose Level 116H, Calcium Level 9.0 Height (Feet): 5 Height (Inches): 6.00 Weight (Pounds): 128 General Appearance: no apparent distress EENT: normal ENT inspection Neck: supple Cardiovascular: normal rate Respiratory/Chest: decreased breath sounds Abdomen: normal bowel sounds, non tender, soft Extremities: non-tender Louis Mcneil MD Dec 10, 2018 10:28
--- NOTE | 2018-12-10 11:52 | NUR ---
SHIPPING WEIGHERDEVULCANIZER CHARGER SI:DEHYDRATION . GT MALFUNCTION VS: BP 106/70, P 107, T 97.2, RR 19, SpO2 98 Hgb 12.4, Hct 37.2, Na 146, K 2.7 IS:K-DUR 40meq LEVETIRACETAM 100ml IVPB HEPARIN SUBQ PROTONIX 40mg IV D5/NS x1L IV MED/SURG STATUS
[2018-12-10 12:00] VITALS: BP 117/68
--- NOTE | 2018-12-10 13:55 | Pulmonology Progress Note ---
Assessment/Plan Problems: (1) Severe malnutrition (2) Malfunction of gastrostomy tube (3) Diabetes mellitus type 2, insulin dependent (4) Schizoaffective disorder (5) History of left above knee amputation Assessment/Plan pt and his family refusing PEG placement will send him back to his [facility] will start on liquid seizure medication, Keppra and prn IM ativan All medications and treatment were reviewed., Subjective ROS Limited/Unobtainable: No Constitutional: Reports: no symptoms HEENT: Repors: no symptoms Respiratory: Reports: no symptoms Allergies: Coded Allergies: DIVALPROEX SODIUM (Verified Allergy, Unknown, 06/01/18) PENICILLINS (Unverified Allergy, Unknown, 11/06/18) Tolerates cephalosporins Objective Last 24 Hour Vital Signs Date Time Temp Pulse Resp B/P (MAP) Pulse Ox O2 Delivery O2 Flow Rate FiO2 12/10/18 09:00 101 113/76 12/10/18 09:00 Room Air 12/10/18 08:00 97.5 101 18 113/76 (88) 100 12/09/18 21:00 Room Air 12/09/18 20:00 97.8 107 17 106/70 (82) 98 12/09/18 16:00 97.2 105 19 118/78 (91) 98 Intake and Output 12/09/18 12/10/18 19:00 07:00 Intake Total 480 ml Output Total 950 ml 500 ml Balance -470 ml -500 ml Intake Oral 480 ml Output Urine Total 950 ml 500 ml # Bowel Movements 1 Objective General Appearance: WD/WN Respiratory/Chest: chest wall non-tender, lungs clear Cardiovascular: normal peripheral pulses, regular rhythm Abdomen: normal bowel sounds Genitourinary: normal external genitalia Skin: no rash Laboratory Tests 12/10/18 07:00: White Blood Count 7.2, Red Blood Count 4.06L, Hemoglobin 12.4L, Hematocrit 37.2L , Mean Corpuscular Volume 92, Mean Corpuscular Hemoglobin 30.6, Mean Corpuscular Hemoglobin Concent 33.4, Red Cell Distribution Width 12.5, Platelet Count 124L, Mean Platelet Volume 11.5H, Neutrophils (%) (Auto) , Lymphocytes (% ) (Auto) , Monocytes (%) (Auto) , Eosinophils (%) (Auto) , Basophils (%) (Auto) , Differential Total Cells Counted 100, Neutrophils % (Manual) 64, Lymphocytes % (Manual) 20, Monocytes % (Manual) 13H, Eosinophils % (Manual) 3, Basophils % ( Manual) 0, Band Neutrophils 0, Platelet Estimate DecreasedL, Platelet Morphology Normal, Red Blood Cell Morphology Normal, Sodium Level 146H, Potassium Level 2.7*L, Chloride Level 108H, Carbon Dioxide Level 28, Anion Gap 11, Blood Urea Nitrogen 8, Creatinine 0.6, Estimat Glomerular Filtration Rate > 60, Glucose Level 116H, Calcium Level 9.0 Current Medications Medications (Trade) Dose Ordered Sig/Cristofer Route PRN Reason Start Time Stop Time Status Last Admin Dose Admin Acetaminophen (Tylenol) 650 mg Q4H PRN ORAL fever 12/03/18 21:45 01/02/19 21:44 Al Hydroxide/Mg Hydroxide (Mylanta II) 30 ml Q6H PRN ORAL dyspepsia 12/03/18 21:45 01/02/19 21:44 Dextrose (Dextrose 50%) 25 ml Q30M PRN IV Hypoglycemia 12/03/18 21:45 01/02/19 21:44 Dextrose (Dextrose 50%) 50 ml Q30M PRN IV Hypoglycemia 12/03/18 21:45 01/02/19 21:44 Dextrose/Sodium Chloride 1,000 ml @ 75 mls/hr [id number] IV 12/03/18 21:45 01/02/19 21:44 12/05/18 01:38 Diphenhydramine HCl (Benadryl) 25 mg Q6H PRN ORAL Itching/Pruritis 12/03/18 21:45 01/02/19 21:44 Heparin Sodium (Porcine) (Heparin 5000 units/ml) 5,000 units EVERY 12 HOURS SUBQ 12/04/18 09:00 01/03/19 08:59 Levetiracetam 100 ml @ 400 mls/hr Q12HR IVPB 12/04/18 21:00 01/03/19 20:59 12/04/18 20:31 Lorazepam (Ativan 2mg/ml 1ml) 1 mg Q4H PRN IM agitation 12/08/18 23:30 12/15/18 23:29 12/09/18 01:39 Metoclopramide HCl (Reglan) 10 mg Q4H PRN IVP servere nausea 12/03/18 21:45 01/02/19 21:44 Metoprolol Tartrate (Lopressor) 25 mg Q12HR ORAL 12/04/18 21:00 01/03/19 20:59 Morphine Sulfate (Morphine Sulfate) 2 mg Q4H PRN IVP severe Pain (Pain Scale 7-10) 12/03/18 21:45 12/10/18 21:44 Nitroglycerin (Ntg) 0.4 mg Q5M X 3 DOSES PRN SL Prn Chest Pain 12/03/18 21:45 01/02/19 21:44 Ondansetron HCl (Zofran) 4 mg Q6H PRN IVP Nausea & Vomiting 12/03/18 21:45 01/02/19 21:44 Pantoprazole (Protonix) 40 mg DAILY IV 12/04/18 09:00 01/03/19 08:59 12/04/18 09:17 Polyethylene Glycol (Miralax) 17 gm HSPRN PRN ORAL Constipation 12/03/18 21:45 01/02/19 21:44 Potassium Chloride (K-Dur) 40 meq ONCE ORAL 12/10/18 15:00 12/10/18 16:00 Promethazine HCl 25 mg/Sodium Chloride 56 ml @ 110 mls/hr Q6H PRN IV Refractory N/V 12/03/18 21:45 01/02/19 21:44 Temazepam (Restoril) 15 mg HSPRN PRN ORAL Insomnia 12/03/18 21:45 12/10/18 21:44 Dony Sanchez MD Dec 10, 2018 13:55
--- NOTE | 2018-12-10 14:03 | Surgery Progress Note ---
Surgery Progress Note Subjective Symptoms: other Additional Comments unchanged. resting comfortable. Objective Last 24 Hour Vital Signs Date Time Temp Pulse Resp B/P (MAP) Pulse Ox O2 Delivery O2 Flow Rate FiO2 12/10/18 09:00 101 113/76 12/10/18 09:00 Room Air 12/10/18 08:00 97.5 101 18 113/76 (88) 100 12/09/18 21:00 Room Air 12/09/18 20:00 97.8 107 17 106/70 (82) 98 12/09/18 16:00 97.2 105 19 118/78 (91) 98 I&O Intake and Output 12/09/18 12/10/18 19:00 07:00 Intake Total 480 ml Output Total 950 ml 500 ml Balance -470 ml -500 ml Intake Oral 480 ml Output Urine Total 950 ml 500 ml # Bowel Movements 1 Dressing: other Wound: other Drains: other Cardiovascular: RSR Respiratory: clear, decreased breath sounds Abdomen: soft, non-tender, present bowel sounds Extremities: other Laboratory Tests Test 12/10/18 07:00 White Blood Count 7.2 K/UL (4.8-10.8) Red Blood Count 4.06 M/UL (4.70-6.10) L Hemoglobin 12.4 G/DL (14.2-18.0) L Hematocrit 37.2 % (42.0-52.0) L Mean Corpuscular Volume 92 FL (80-99) Mean Corpuscular Hemoglobin 30.6 PG (27.0-31.0) Mean Corpuscular Hemoglobin Concent 33.4 G/DL (32.0-36.0) Red Cell Distribution Width 12.5 % (11.6-14.8) Platelet Count 124 K/UL (150-450) L Mean Platelet Volume 11.5 FL (6.5-10.1) H Neutrophils (%) (Auto) % (45.0-75.0) Lymphocytes (%) (Auto) % (20.0-45.0) Monocytes (%) (Auto) % (1.0-10.0) Eosinophils (%) (Auto) % (0.0-3.0) Basophils (%) (Auto) % (0.0-2.0) Differential Total Cells Counted 100 Neutrophils % (Manual) 64 % (45-75) Lymphocytes % (Manual) 20 % (20-45) Monocytes % (Manual) 13 % (1-10) H Eosinophils % (Manual) 3 % (0-3) Basophils % (Manual) 0 % (0-2) Band Neutrophils 0 % (0-8) Platelet Estimate Decreased L Platelet Morphology Normal Red Blood Cell Morphology Normal Sodium Level 146 MMOL/L (136-145) H Potassium Level 2.7 MMOL/L (3.5-5.1) *L Chloride Level 108 MMOL/L (98-107) H Carbon Dioxide Level 28 MMOL/L (21-32) Anion Gap 11 mmol/L (5-15) Blood Urea Nitrogen 8 mg/dL (7-18) Creatinine 0.6 MG/DL (0.55-1.30) Estimat Glomerular Filtration Rate > 60 mL/min (>60) Glucose Level 116 MG/DL (74-106) H Calcium Level 9.0 MG/DL (8.5-10.1) Plan Problems: (1) Malfunction of gastrostomy tube Assessment & Plan: Patient presents with dislodged gastric feeding tube. Prior site of tube near closed. As per gastrology no patient's prior records demonstrate no artificial feeding. PT HAS BEEN REFUSING NURSING CARE AND PO TRIALS. PER COSTUME SHOP MANAGER, SPOKE TO PT AND PT AGREED PO TRIALS. PT SEEN AT BEDSIDE IN PM. ALERT, ATTEMPTED PO TRIALS AND ORAL CARE. PT REFUSED BY SHAKING HIS HEAD AND LOOKING AWAY EVEN GIVEN MAX ENCOURAGEMENT. RN, MICHAEL BHARDWAJ, ALSO AT BEDSIDE TO ENCOURAGEMENT PT FOR PO TRIALS. HOWEVER, PT REFUSED. UNABLE TO FULLY ASSESS PT'S SWALLOWING FUNCTION. PER PT AND FAMILY WISHES, NO ARTIFICIAL FEEDING, INCLUDING TUBE FEEDING. IF PO IS GIVEN FOR QUALITY OF LIFE COMFORT FEEDING, CONSIDER LIQUIFIED PUREED, LIKE NECTAR THICK SOUP CONSISTENCY WITH NECTAR THICK LIQUIDS WITH STRICT ASPIRATION PRECAUTIONS WITH 1TO1 FEEDING. IV fluids refusing care plans d/c planning cont with wound instructions upon dc Shiv Horvath Dec 10, 2018 14:03
--- NOTE | 2018-12-10 15:55 | NUR ---
*-* INSURANCE *-* CLINICALS AND REVIEW FAXED TO: [id number] NCM: MARIS Sanchez P- [phone] F- [phone]....
[2018-12-10 16:00] VITALS: BP 133/59
--- NOTE | 2018-12-10 17:53 | Internal Med Progress Note ---
Subjective Date of Service: Dec 10, 2018 Physician Name Manjinder Marley Attending Physician Ean Joyce MD Current Medications Medications (Trade) Dose Ordered Sig/Cristofer Route PRN Reason Start Time Stop Time Status Last Admin Dose Admin Acetaminophen (Tylenol) 650 mg Q4H PRN ORAL fever 12/03/18 21:45 01/02/19 21:44 Al Hydroxide/Mg Hydroxide (Mylanta II) 30 ml Q6H PRN ORAL dyspepsia 12/03/18 21:45 01/02/19 21:44 Dextrose (Dextrose 50%) 25 ml Q30M PRN IV Hypoglycemia 12/03/18 21:45 01/02/19 21:44 Dextrose (Dextrose 50%) 50 ml Q30M PRN IV Hypoglycemia 12/03/18 21:45 01/02/19 21:44 Dextrose/Sodium Chloride 1,000 ml @ 75 mls/hr [id number] IV 12/03/18 21:45 01/02/19 21:44 12/05/18 01:38 Diphenhydramine HCl (Benadryl) 25 mg Q6H PRN ORAL Itching/Pruritis 12/03/18 21:45 01/02/19 21:44 Heparin Sodium (Porcine) (Heparin 5000 units/ml) 5,000 units EVERY 12 HOURS SUBQ 12/04/18 09:00 01/03/19 08:59 Levetiracetam 100 ml @ 400 mls/hr Q12HR IVPB 12/04/18 21:00 01/03/19 20:59 12/04/18 20:31 Lorazepam (Ativan 2mg/ml 1ml) 1 mg Q4H PRN IM agitation 12/08/18 23:30 12/15/18 23:29 12/09/18 01:39 Metoclopramide HCl (Reglan) 10 mg Q4H PRN IVP servere nausea 12/03/18 21:45 01/02/19 21:44 Metoprolol Tartrate (Lopressor) 25 mg Q12HR ORAL 12/04/18 21:00 01/03/19 20:59 Morphine Sulfate (Morphine Sulfate) 2 mg Q4H PRN IVP severe Pain (Pain Scale 7-10) 12/03/18 21:45 12/10/18 21:44 Nitroglycerin (Ntg) 0.4 mg Q5M X 3 DOSES PRN SL Prn Chest Pain 12/03/18 21:45 01/02/19 21:44 Ondansetron HCl (Zofran) 4 mg Q6H PRN IVP Nausea & Vomiting 12/03/18 21:45 01/02/19 21:44 Pantoprazole (Protonix) 40 mg DAILY IV 12/04/18 09:00 01/03/19 08:59 12/04/18 09:17 Polyethylene Glycol (Miralax) 17 gm HSPRN PRN ORAL Constipation 12/03/18 21:45 01/02/19 21:44 Promethazine HCl 25 mg/Sodium Chloride 56 ml @ 110 mls/hr Q6H PRN IV Refractory N/V 12/03/18 21:45 01/02/19 21:44 Temazepam (Restoril) 15 mg HSPRN PRN ORAL Insomnia 12/03/18 21:45 12/10/18 21:44 Allergies: Coded Allergies: DIVALPROEX SODIUM (Verified Allergy, Unknown, 06/01/18) PENICILLINS (Unverified Allergy, Unknown, 11/06/18) Tolerates cephalosporins ROS Limited/Unobtainable: Yes Subjective 58 YO M admitted with G-tube malunction. Cover for Int tasha-Dr Joyce Objective Last Vital Signs Date Time Temp Pulse Resp B/P (MAP) Pulse Ox O2 Delivery O2 Flow Rate FiO2 12/10/18 16:00 97.2 76 18 133/59 (83) 100 12/10/18 09:00 Room Air Laboratory Tests Test 12/10/18 07:00 White Blood Count 7.2 K/UL (4.8-10.8) Red Blood Count 4.06 M/UL (4.70-6.10) L Hemoglobin 12.4 G/DL (14.2-18.0) L Hematocrit 37.2 % (42.0-52.0) L Mean Corpuscular Volume 92 FL (80-99) Mean Corpuscular Hemoglobin 30.6 PG (27.0-31.0) Mean Corpuscular Hemoglobin Concent 33.4 G/DL (32.0-36.0) Red Cell Distribution Width 12.5 % (11.6-14.8) Platelet Count 124 K/UL (150-450) L Mean Platelet Volume 11.5 FL (6.5-10.1) H Neutrophils (%) (Auto) % (45.0-75.0) Lymphocytes (%) (Auto) % (20.0-45.0) Monocytes (%) (Auto) % (1.0-10.0) Eosinophils (%) (Auto) % (0.0-3.0) Basophils (%) (Auto) % (0.0-2.0) Differential Total Cells Counted 100 Neutrophils % (Manual) 64 % (45-75) Lymphocytes % (Manual) 20 % (20-45) Monocytes % (Manual) 13 % (1-10) H Eosinophils % (Manual) 3 % (0-3) Basophils % (Manual) 0 % (0-2) Band Neutrophils 0 % (0-8) Platelet Estimate Decreased L Platelet Morphology Normal Red Blood Cell Morphology Normal Sodium Level 146 MMOL/L (136-145) H Potassium Level 2.7 MMOL/L (3.5-5.1) *L Chloride Level 108 MMOL/L (98-107) H Carbon Dioxide Level 28 MMOL/L (21-32) Anion Gap 11 mmol/L (5-15) Blood Urea Nitrogen 8 mg/dL (7-18) Creatinine 0.6 MG/DL (0.55-1.30) Estimat Glomerular Filtration Rate > 60 mL/min (>60) Glucose Level 116 MG/DL (74-106) H Calcium Level 9.0 MG/DL (8.5-10.1) Intake and Output 12/09/18 12/10/18 19:00 07:00 Intake Total 480 ml Output Total 950 ml 500 ml Balance -470 ml -500 ml Intake Oral 480 ml Output Urine Total 950 ml 500 ml # Bowel Movements 1 Objective Objective GENERAL: The patient is awake, opens his eyes, cachectic with malnutrition, less agitated, and combative. HEAD AND NECK: Pupils equal and reactive to light. Anicteric. NECK: Supple. No JVD. LUNGS: poor air entry. No wheeze or rales. Poor inspiratory effort. HEART: S1 and S2. Distant heart sounds. No murmurs or gallops. ABDOMEN: Soft, not distended not tender, old G-tube site closed., EXTREMITIES: No cyanosis or clubbing. left AKA with intact stump, right heel ulceration with muscle atrophy in bilateral lower extremities. NEUROLOGIC: Cranial nerves II through XII grossly intact. The patient is moving all the extremities spontaneously. Assessment/Plan Assessment/Plan Assessment/Plan Assessment/Plan Assessment/Plan ASSESSMENT: 1. G-tube malfunctioning with dislodge. 2. Dysphagia, status post feeding tube placement. 3. Hypertension. 4. Diabetes, type 2. 5. Alzheimer dementia. 6. History of CVA. 7. ATN / acute kidney injury. 8. Acute toxic metabolic encephalopathy. 9. Severe protein-calorie malnutrition with cachexia. 10. Status post left BKA. PLAN: 1. In medical floor. 2. We will follow up with Dr. Sanchez from Pulmonary/Critical Care, from General Surgery, and Dr. Mcneil from Gastroenterology. 3. Code status is DNR/DNI. 4. DVT prophylaxis, heparin subcutaneous. 5. no plan for PEG placement soon-see GI note. 6. Monitor laboratory. 7. Defer PEG, follow up bioethics and ST evaluation. 8. Discharge planning Manjinder Marley MD Dec 10, 2018 17:53
[2018-12-10] MEDS: D5 1/2NS w/KCl 20mEq 1,000 ML IV SCH (19:00)
--- NOTE | 2018-12-10 19:45 | NUR ---
NURSE NOTES: Received patient on bed sleepintg, no s/s of any distress, no IV line noted, MD aware, Bed in low position and locked, call light within reach, will continue to monitor.
--- NOTE | 2018-12-10 20:56 | NUR ---
NURSE NOTES: Patient refused all her medications and refused IV line insertion, educate and explained to the patient the risk of not takin g his medications, still refused, He also refused taking his vital signs. Addendum: 12/11/18 at 0727 by Michael Melgar RN NURSE NOTES: Patient refused all his medications and refused IV line insertion, educate and explained to the patient the risk of not taking his medications, still refused, He also refused taking his vital signs.
--- NOTE | 2018-12-11 | NUR ---
NURSE NOTES: Patient refused vitals signs
[2018-12-11 04:00] VITALS: BP 98/54
--- NOTE | 2018-12-11 04:00 | NUR ---
NURSE NOTES: Patient refused vitals signs.
--- NOTE | 2018-12-11 07:26 | NUR ---
HAND-OFF: Report given to Angelica CHUNG.
--- NOTE | 2018-12-11 07:35 | NUR ---
NURSE NOTES: Received patient in bed,awake, verbally responsive but patient refused V/S and to answer questions. No IV, on P200 mattress. Patient refused to eat. RN explained the risks and benefits.Will continue plan of care.
--- NOTE | 2018-12-11 07:36 | NUR ---
NURSE NOTES: During round, patient put his blanket all the way to his shoulder and his arms are not exposed. Patient refused assessment when RN tried to do assessment. He shook his head and did not want to be bothered. Will continue to monitor.
--- NOTE | 2018-12-11 08:15 | NUR ---
NURSE NOTES Found patient with the white colored torniquet around his left wrist by treatment nurse during wound assessment. RN was called to the room. RN immediately checked the patient. Torniquet was already removed noted with sallie on the skin around the left wrist but skin intact.Pulse presents and patient able to move his fingers when RN tried to grab his hands and fingers patient moved his hand but able to grab RN's hand. No bruise or swelling @ this time.Patient's hand is cool to touch as well as his left arm not only his hand. Patient does not want to talk when RN asked what happened. There was order for lab test for this morning. MD aware and placed a call to family and left message, charge nurse and greenhouse manager aware.Picture taken.Will continue to monitor.
[2018-12-11] MEDS: D5 1/2NS w/KCl 20mEq 1,000 ML IV SCH ×2 (08:20→21:14)
--- NOTE | 2018-12-11 08:38 | General Progress Note ---
Assessment/Plan Problem List: (1) Hematuria ICD Codes: R31.9 - Hematuria, unspecified SNOMED: 83298455 (2) Severe malnutrition ICD Codes: E43 - Unspecified severe protein-calorie malnutrition SNOMED: 42080525 (3) Diabetes mellitus type 2, insulin dependent ICD Codes: E11.9 - Type 2 diabetes mellitus without complications; Z79.4 - FPC (current) use of insulin SNOMED: 169969156 (4) Schizoaffective disorder ICD Codes: F25.9 - Schizoaffective disorder, unspecified SNOMED: 36072305 (5) HTN (hypertension) ICD Codes: I10 - Essential (primary) hypertension SNOMED: 88487361 Assessment/Plan POLST reviewed noted with no artificial feeding. patient refusing all care, brother wants to respect patients wishes refusing to try to eat or drink recommend hospice care No plans for PEG placement. advance diet dc planning Subjective ROS Limited/Unobtainable: No Allergies: Coded Allergies: DIVALPROEX SODIUM (Verified Allergy, Unknown, 06/01/18) PENICILLINS (Unverified Allergy, Unknown, 11/06/18) Tolerates cephalosporins Objective Last 24 Hour Vital Signs Date Time Temp Pulse Resp B/P (MAP) Pulse Ox O2 Delivery O2 Flow Rate FiO2 12/11/18 04:00 98/54 (69) 12/10/18 21:00 Room Air 12/10/18 16:00 97.2 76 18 133/59 (83) 100 12/10/18 12:00 97.5 83 18 117/68 (84) 100 12/10/18 09:00 101 113/76 12/10/18 09:00 Room Air Intake and Output 12/10/18 12/11/18 19:00 07:00 Output Total 900 ml 250 ml Balance -900 ml -250 ml Output Urine Total 900 ml 250 ml # Bowel Movements 2 Height (Feet): 5 Height (Inches): 6.00 Weight (Pounds): 128 General Appearance: no apparent distress EENT: normal ENT inspection Neck: supple Cardiovascular: normal rate Respiratory/Chest: decreased breath sounds Abdomen: normal bowel sounds, non tender, soft Extremities: non-tender Louis Mcneil MD Dec 11, 2018 08:37
[2018-12-11] MEDS: Pantoprazole Inj IV SCH (08:55)
[2018-12-11] MEDS: levETIRAcetam 500mg/NS100ml 100 ML IVPB SCH ×2 (08:55→21:00)
[2018-12-11] MEDS: Metoprolol 25mg tab ORAL SCH ×2 (08:58→21:00)
[2018-12-11] MEDS: Heparin 5000 units/ml inj SUBQ SCH ×2 (08:59→21:00)
--- NOTE | 2018-12-11 09:00 | NUR ---
NURSE NOTES: Patient refused 9:00am scheduled medications, RN explained the risks and benefits but patient refused resisting by waving his arms to RN. Will continue to monitor.
--- NOTE | 2018-12-11 10:00 | NUR ---
NURSE NOTES: Patient able to drink some water without difficulties.
--- NOTE | 2018-12-11 12:00 | NUR ---
NURSE NOTES: Patient refused V/S and blood sugar check resisting waving his arms. Patient did not RN to check V/S and blood sugarx3. Will continue to monitor.
--- NOTE | 2018-12-11 12:27 | Pulmonology Progress Note ---
Assessment/Plan Problems: (1) Severe malnutrition (2) Malfunction of gastrostomy tube (3) Diabetes mellitus type 2, insulin dependent (4) Schizoaffective disorder (5) History of left above knee amputation Assessment/Plan pt and his family refusing PEG placement will send him back to his alf will start on liquid seizure medication, Keppra and prn IM ativan All medications and treatment were reviewed., Subjective ROS Limited/Unobtainable: No Allergies: Coded Allergies: DIVALPROEX SODIUM (Verified Allergy, Unknown, 06/01/18) PENICILLINS (Unverified Allergy, Unknown, 11/06/18) Tolerates cephalosporins Objective Last 24 Hour Vital Signs Date Time Temp Pulse Resp B/P (MAP) Pulse Ox O2 Delivery O2 Flow Rate FiO2 12/11/18 09:00 Room Air 12/11/18 04:00 98/54 (69) 12/10/18 21:00 Room Air 12/10/18 16:00 97.2 76 18 133/59 (83) 100 Intake and Output 12/10/18 12/11/18 19:00 07:00 Output Total 900 ml 250 ml Balance -900 ml -250 ml Output Urine Total 900 ml 250 ml # Bowel Movements 2 Objective General Appearance: WD/WN Respiratory/Chest: chest wall non-tender, lungs clear Cardiovascular: normal peripheral pulses, regular rhythm Abdomen: normal bowel sounds Genitourinary: normal external genitalia Skin: no rash Current Medications Medications (Trade) Dose Ordered Sig/Cristofer Route PRN Reason Start Time Stop Time Status Last Admin Dose Admin Acetaminophen (Tylenol) 650 mg Q4H PRN ORAL fever 12/03/18 21:45 01/02/19 21:44 Al Hydroxide/Mg Hydroxide (Mylanta II) 30 ml Q6H PRN ORAL dyspepsia 12/03/18 21:45 01/02/19 21:44 Dextrose (Dextrose 50%) 25 ml Q30M PRN IV Hypoglycemia 12/03/18 21:45 01/02/19 21:44 Dextrose (Dextrose 50%) 50 ml Q30M PRN IV Hypoglycemia 12/03/18 21:45 01/02/19 21:44 Dextrose/ Electrolytes 1,000 ml @ 75 mls/hr [id number] IV 12/10/18 19:00 01/09/19 18:59 Diphenhydramine HCl (Benadryl) 25 mg Q6H PRN ORAL Itching/Pruritis 12/03/18 21:45 01/02/19 21:44 Heparin Sodium (Porcine) (Heparin 5000 units/ml) 5,000 units EVERY 12 HOURS SUBQ 12/04/18 09:00 01/03/19 08:59 Levetiracetam 100 ml @ 400 mls/hr Q12HR IVPB 12/04/18 21:00 01/03/19 20:59 12/04/18 20:31 Lorazepam (Ativan 2mg/ml 1ml) 1 mg Q4H PRN IM agitation 12/08/18 23:30 12/15/18 23:29 12/09/18 01:39 Metoclopramide HCl (Reglan) 10 mg Q4H PRN IVP servere nausea 12/03/18 21:45 01/02/19 21:44 Metoprolol Tartrate (Lopressor) 25 mg Q12HR ORAL 12/04/18 21:00 01/03/19 20:59 Nitroglycerin (Ntg) 0.4 mg Q5M X 3 DOSES PRN SL Prn Chest Pain 12/03/18 21:45 01/02/19 21:44 Ondansetron HCl (Zofran) 4 mg Q6H PRN IVP Nausea & Vomiting 12/03/18 21:45 01/02/19 21:44 Pantoprazole (Protonix) 40 mg DAILY IV 12/04/18 09:00 01/03/19 08:59 12/04/18 09:17 Polyethylene Glycol (Miralax) 17 gm HSPRN PRN ORAL Constipation 12/03/18 21:45 01/02/19 21:44 Promethazine HCl 25 mg/Sodium Chloride 56 ml @ 110 mls/hr Q6H PRN IV Refractory N/V 12/03/18 21:45 01/02/19 21:44 Dony Sanchez MD Dec 11, 2018 12:27
[2018-12-11 12:46] LABS: BASOPHILS % (AUTO) 0.8 % (0.0-2.0); EOSINOPHILS % (AUTO) 3.4 % (0.0-3.0); HEMATOCRIT 36.1 % (42.0-52.0); HEMOGLOBIN 11.9 G/DL (14.2-18.0); LYMPHOCYTES % (AUTO) 22.8 % (20.0-45.0); MEAN CORPUSCULAR VOLUME 92 FL (80-99); MONOCYTES % (AUTO) 10.1 % (1.0-10.0); NEUTROPHILS % (AUTO) 62.8 % (45.0-75.0); PLATELET COUNT 129 K/UL (150-450); RED BLOOD COUNT 3.91 M/UL (4.70-6.10); RED CELL DISTRIBUTION WIDTH 12.7 % (11.6-14.8)
[2018-12-11 13:00] LABS: ANION GAP 12 mmol/L (5-15); BLOOD UREA NITROGEN 13 mg/dL (7-18); CALCIUM 9.2 MG/DL (8.5-10.1); CARBON DIOXIDE 26 MMOL/L (21-32); CHLORIDE 106 MMOL/L (98-107); CREATININE 0.5 MG/DL (0.55-1.30); POTASSIUM 3.8 MMOL/L (3.5-5.1); SODIUM 144 MMOL/L (136-145)
--- NOTE | 2018-12-11 13:41 | NUR ---
ASSISTANT TO THE DEANSECURITY SHIFT MANAGER SI:GT MALFUNCTION . SEVERE MALNUTRITION VS:BP 98/54 RBC 3.91, Hgb 11.9, Hct 36.1, CR 0.5 IS:D5 x1L IV LEVETIRACETAM 100ml IVPB HEPARIN SUBQ PROTONIX 40mg IV MED/SURG STATUS
--- NOTE | 2018-12-11 13:42 | NUR ---
RD ASSESSMENT & RECOMMENDATIONS SEE CARE ACTIVITY FOR COMPLETE ASSESSMENT DAILY ESTIMATED NEEDS: Needs based on wt loss, underweight/ 49.6kg 30-40 kcals/kg 8237-9469 total kcals 1-1.5 g protein/kg 50-75 g total protein 25-30 mL/kg 2943-4675 total fluid mLs NUTRITION DIAGNOSIS: *Swallowing difficulty r/t dysphagia as evidenced by h/o PEG dep, POLST now indicates no TF, on mech soft chopped texture diet. *Increased kcal and protein needs r/t underweight status, wt loss, wound healing as evidenced by pt is 63% IBW, w/ generalized severe wasting, possible recent significant wt loss of 10 lbs/8.4% wt loss in 1 month, admitted w/ multiple wounds, including DTI @ sacrum. CURRENT DIET:soft, mech soft chopped PO DIET RECOMMENDATIONS: LIBERALIZED REGULAR/ texture per SUSTAINABILITY ENGINEER ADDITIONAL RECOMMENDATIONS: 1) Calibrated bedscale wt, weekly wts- recent wt loss, underweight 2) Monitor POC- comfort measures, no TF at this time 3) Wound healing- MVI x 1, Vit C 500mg QD, Demetri 1pkt BID 4) Ensure Enlive TID w/ meals if pt receptive 5) Encourage PO intake - refusing meals again .
--- NOTE | 2018-12-11 15:03 | NUR ---
*-* INSURANCE *-* CLINICALS AND REVIEW FAXED TO: [id number] NCM: MARIS Sanchez P- [phone] F- [phone]....
--- NOTE | 2018-12-11 15:45 | NUR ---
ST NOTE: ST WEEKLY AND SWALLOW STATUS AND D/C SUMMARY: PT DID NOT MEET PO INTAKE GOALS, NURSING STAFF MET ASPIRATION PRECAUTIONS GOALS. DISCUSSED WITH RNMICHAEL RE:PT'S CONDITIONS, PER RN, PT HAS BEEN REFUSING TO EAT/DRINK BY MOUTH AND CARE. EDUCATED RN: RE:PT'S CONDITIONS AND ADVANCED DIET TOLERATED. NO FURTHER SKILLED ST SERVICE IS REQUIRED AT THIS TIME. D/C FROM SKILLED ST SERVICE.
--- NOTE | 2018-12-11 15:47 | Surgery Progress Note ---
Surgery Progress Note Subjective Symptoms: pain same, voiding well, passing flatus, BM Additional Comments no acute events. Objective Last 24 Hour Vital Signs Date Time Temp Pulse Resp B/P (MAP) Pulse Ox O2 Delivery O2 Flow Rate FiO2 12/11/18 09:00 Room Air 12/11/18 04:00 98/54 (69) 12/10/18 21:00 Room Air 12/10/18 16:00 97.2 76 18 133/59 (83) 100 I&O Intake and Output 12/10/18 12/11/18 19:00 07:00 Output Total 900 ml 250 ml Balance -900 ml -250 ml Output Urine Total 900 ml 250 ml # Bowel Movements 2 Dressing: saturated Wound: other Drains: other Cardiovascular: RSR Respiratory: decreased breath sounds Abdomen: soft, non-tender, present bowel sounds, non-distended Extremities: no tenderness, no cyanosis Laboratory Tests Test 12/11/18 12:20 White Blood Count 7.0 K/UL (4.8-10.8) Red Blood Count 3.91 M/UL (4.70-6.10) L Hemoglobin 11.9 G/DL (14.2-18.0) L Hematocrit 36.1 % (42.0-52.0) L Mean Corpuscular Volume 92 FL (80-99) Mean Corpuscular Hemoglobin 30.5 PG (27.0-31.0) Mean Corpuscular Hemoglobin Concent 33.0 G/DL (32.0-36.0) Red Cell Distribution Width 12.7 % (11.6-14.8) Platelet Count 129 K/UL (150-450) L Mean Platelet Volume 11.4 FL (6.5-10.1) H Neutrophils (%) (Auto) 62.8 % (45.0-75.0) Lymphocytes (%) (Auto) 22.8 % (20.0-45.0) Monocytes (%) (Auto) 10.1 % (1.0-10.0) H Eosinophils (%) (Auto) 3.4 % (0.0-3.0) H Basophils (%) (Auto) 0.8 % (0.0-2.0) Sodium Level 144 MMOL/L (136-145) Potassium Level 3.8 MMOL/L (3.5-5.1) Chloride Level 106 MMOL/L (98-107) Carbon Dioxide Level 26 MMOL/L (21-32) Anion Gap 12 mmol/L (5-15) Blood Urea Nitrogen 13 mg/dL (7-18) Creatinine 0.5 MG/DL (0.55-1.30) L Estimat Glomerular Filtration Rate > 60 mL/min (>60) Glucose Level 104 MG/DL (74-106) Calcium Level 9.2 MG/DL (8.5-10.1) Plan Problems: (1) Malfunction of gastrostomy tube Assessment & Plan: Patient presents with dislodged gastric feeding tube. Prior site of tube near closed. As per gastrology no patient's prior records demonstrate no artificial feeding. PT HAS BEEN REFUSING NURSING CARE AND PO TRIALS. PER TRANSPORTATION SUPERVISOR, SPOKE TO PT AND PT AGREED PO TRIALS. PT SEEN AT BEDSIDE IN PM. ALERT, ATTEMPTED PO TRIALS AND ORAL CARE. PT REFUSED BY SHAKING HIS HEAD AND LOOKING AWAY EVEN GIVEN MAX ENCOURAGEMENT. RN, MICHAEL BHARDWAJ, ALSO AT BEDSIDE TO ENCOURAGEMENT PT FOR PO TRIALS. HOWEVER, PT REFUSED. UNABLE TO FULLY ASSESS PT'S SWALLOWING FUNCTION. PER PT AND FAMILY WISHES, NO ARTIFICIAL FEEDING, INCLUDING TUBE FEEDING. IF PO IS GIVEN FOR QUALITY OF LIFE COMFORT FEEDING, CONSIDER LIQUIFIED PUREED, LIKE NECTAR THICK SOUP CONSISTENCY WITH NECTAR THICK LIQUIDS WITH STRICT ASPIRATION PRECAUTIONS WITH 1TO1 FEEDING. IV fluids refusing care plans d/c planning cont with wound instructions upon dc Shiv Horvath Dec 11, 2018 15:47
--- NOTE | 2018-12-11 15:53 | NUR ---
NURSE NOTES:WOUND CARE FOLLOW-UP NOTES:Non-blanchable erythema with shearing noted to sacrum .Base of wound is pink and dry.(L)8cm x (W)7cm. Periwound is clean and intact. Non-blanchable erythema without fluctuance noted to lateral R malleolus(L)2.3cm x (W)2.2cm. Non-blanchable erythema without fluctuance or induration R achilles (L)1.5cm x (W)1.2cm. R heel boggy with non-blanchable erythema (L)2cm x (W)1cm. Periwound is pink and intact. Tx.Plan : Continue current wound care orders and wound prevention protocols.
[2018-12-11 16:00] VITALS: BP 111/65
--- NOTE | 2018-12-11 16:30 | NUR ---
NURSE NOTES: Patient refused blood sugar check, patient refused to give his hands to RN and started waving his arms. RN explained the risks and benefits.
--- NOTE | 2018-12-11 16:33 | NUR ---
NURSE NOTES: Patient's brother Sharif Rodriguez called back and Rn informed what happened and patient able to move his fingers and hand without difficulties and no necrosis on fingernails.Pulse presents.Will continue to monitor.
--- NOTE | 2018-12-11 17:48 | Internal Med Progress Note ---
Subjective Date of Service: Dec 11, 2018 Physician Name Manjinder Marley Attending Physician Ean Joyce MD Current Medications Medications (Trade) Dose Ordered Sig/Cristofer Route PRN Reason Start Time Stop Time Status Last Admin Dose Admin Acetaminophen (Tylenol) 650 mg Q4H PRN ORAL fever 12/03/18 21:45 01/02/19 21:44 Al Hydroxide/Mg Hydroxide (Mylanta II) 30 ml Q6H PRN ORAL dyspepsia 12/03/18 21:45 01/02/19 21:44 Dextrose (Dextrose 50%) 25 ml Q30M PRN IV Hypoglycemia 12/03/18 21:45 01/02/19 21:44 Dextrose (Dextrose 50%) 50 ml Q30M PRN IV Hypoglycemia 12/03/18 21:45 01/02/19 21:44 Dextrose/ Electrolytes 1,000 ml @ 75 mls/hr [id number] IV 12/10/18 19:00 01/09/19 18:59 Diphenhydramine HCl (Benadryl) 25 mg Q6H PRN ORAL Itching/Pruritis 12/03/18 21:45 01/02/19 21:44 Heparin Sodium (Porcine) (Heparin 5000 units/ml) 5,000 units EVERY 12 HOURS SUBQ 12/04/18 09:00 01/03/19 08:59 Levetiracetam 100 ml @ 400 mls/hr Q12HR IVPB 12/04/18 21:00 01/03/19 20:59 12/04/18 20:31 Lorazepam (Ativan 2mg/ml 1ml) 1 mg Q4H PRN IM agitation 12/08/18 23:30 12/15/18 23:29 12/09/18 01:39 Metoclopramide HCl (Reglan) 10 mg Q4H PRN IVP servere nausea 12/03/18 21:45 01/02/19 21:44 Metoprolol Tartrate (Lopressor) 25 mg Q12HR ORAL 12/04/18 21:00 01/03/19 20:59 Nitroglycerin (Ntg) 0.4 mg Q5M X 3 DOSES PRN SL Prn Chest Pain 12/03/18 21:45 01/02/19 21:44 Ondansetron HCl (Zofran) 4 mg Q6H PRN IVP Nausea & Vomiting 12/03/18 21:45 01/02/19 21:44 Pantoprazole (Protonix) 40 mg DAILY IV 12/04/18 09:00 01/03/19 08:59 12/04/18 09:17 Polyethylene Glycol (Miralax) 17 gm HSPRN PRN ORAL Constipation 12/03/18 21:45 01/02/19 21:44 Promethazine HCl 25 mg/Sodium Chloride 56 ml @ 110 mls/hr Q6H PRN IV Refractory N/V 12/03/18 21:45 01/02/19 21:44 Allergies: Coded Allergies: DIVALPROEX SODIUM (Verified Allergy, Unknown, 06/01/18) PENICILLINS (Unverified Allergy, Unknown, 11/06/18) Tolerates cephalosporins ROS Limited/Unobtainable: Yes Subjective 58 YO M admitted with G-tube malunction. Cover for Int tasha-Dr Joyce Objective Last Vital Signs Date Time Temp Pulse Resp B/P (MAP) Pulse Ox O2 Delivery O2 Flow Rate FiO2 12/11/18 16:00 98.0 83 18 111/65 (80) 97 12/11/18 09:00 Room Air Laboratory Tests Test 12/11/18 12:20 White Blood Count 7.0 K/UL (4.8-10.8) Red Blood Count 3.91 M/UL (4.70-6.10) L Hemoglobin 11.9 G/DL (14.2-18.0) L Hematocrit 36.1 % (42.0-52.0) L Mean Corpuscular Volume 92 FL (80-99) Mean Corpuscular Hemoglobin 30.5 PG (27.0-31.0) Mean Corpuscular Hemoglobin Concent 33.0 G/DL (32.0-36.0) Red Cell Distribution Width 12.7 % (11.6-14.8) Platelet Count 129 K/UL (150-450) L Mean Platelet Volume 11.4 FL (6.5-10.1) H Neutrophils (%) (Auto) 62.8 % (45.0-75.0) Lymphocytes (%) (Auto) 22.8 % (20.0-45.0) Monocytes (%) (Auto) 10.1 % (1.0-10.0) H Eosinophils (%) (Auto) 3.4 % (0.0-3.0) H Basophils (%) (Auto) 0.8 % (0.0-2.0) Sodium Level 144 MMOL/L (136-145) Potassium Level 3.8 MMOL/L (3.5-5.1) Chloride Level 106 MMOL/L (98-107) Carbon Dioxide Level 26 MMOL/L (21-32) Anion Gap 12 mmol/L (5-15) Blood Urea Nitrogen 13 mg/dL (7-18) Creatinine 0.5 MG/DL (0.55-1.30) L Estimat Glomerular Filtration Rate > 60 mL/min (>60) Glucose Level 104 MG/DL (74-106) Calcium Level 9.2 MG/DL (8.5-10.1) Intake and Output 12/10/18 12/11/18 19:00 07:00 Output Total 900 ml 250 ml Balance -900 ml -250 ml Output Urine Total 900 ml 250 ml # Bowel Movements 2 Objective Objective GENERAL: The patient is awake, opens his eyes, cachectic with malnutrition, less agitated, and combative. HEAD AND NECK: Pupils equal and reactive to light. Anicteric. NECK: Supple. No JVD. LUNGS: poor air entry. No wheeze or rales. Poor inspiratory effort. HEART: S1 and S2. Distant heart sounds. No murmurs or gallops. ABDOMEN: Soft, not distended not tender, old G-tube site closed., EXTREMITIES: No cyanosis or clubbing. left AKA with intact stump, right heel ulceration with muscle atrophy in bilateral lower extremities. NEUROLOGIC: Cranial nerves II through XII grossly intact. The patient is moving all the extremities spontaneously. Assessment/Plan Assessment/Plan Assessment/Plan Assessment/Plan Assessment/Plan ASSESSMENT: 1. G-tube malfunctioning with dislodge. 2. Dysphagia, status post feeding tube placement. 3. Hypertension. 4. Diabetes, type 2. 5. Alzheimer dementia. 6. History of CVA. 7. ATN / acute kidney injury. 8. Acute toxic metabolic encephalopathy. 9. Severe protein-calorie malnutrition with cachexia. 10. Status post left BKA. 11. Hypokalemia PLAN: 1. In medical floor. 2. We will follow up with Dr. Sanchez from Pulmonary/Critical Care, from General Surgery, and Dr. Mcneil from Gastroenterology. 3. Code status is DNR/DNI. 4. DVT prophylaxis, heparin subcutaneous. 5. no plan for PEG placement soon-see GI note. 6. Monitor laboratory. 7. Defer PEG, follow up bioethics and ST evaluation. 8. Discharge planning 9. Continue D5 1/2 NS + 20 meq kcl/L Manjinder Marley MD Dec 11, 2018 17:48
--- NOTE | 2018-12-11 19:00 | NUR ---
NURSE NOTES: Patient had small bowel movement and given proper incontinent care, no skin issue.Dressing intact.
--- NOTE | 2018-12-11 19:29 | NUR ---
HAND-OFF: Report given to Shanon.
[2018-12-11 20:00] VITALS: BP 108/70
--- NOTE | 2018-12-11 22:52 | General Progress Note ---
Assessment/Plan Problem List: (1) Schizoaffective disorder ICD Codes: F25.9 - Schizoaffective disorder, unspecified SNOMED: 03750429 Assessment/Plan Haldol dec 25mg IM the pt lacks capacity to make decisions Subjective Constitutional: Reports: malaise, weakness Neurologic/Psychiatric: Reports: anxiety, depressed, emotional problems Allergies: Coded Allergies: DIVALPROEX SODIUM (Verified Allergy, Unknown, 06/01/18) PENICILLINS (Unverified Allergy, Unknown, 11/06/18) Tolerates cephalosporins Subjective the pt is disorganized and confused the pt has waxing and waning Objective Last 24 Hour Vital Signs Date Time Temp Pulse Resp B/P (MAP) Pulse Ox O2 Delivery O2 Flow Rate FiO2 12/11/18 21:00 74 108/70 12/11/18 20:00 97.4 76 17 108/70 (83) 99 12/11/18 16:00 98.0 83 18 111/65 (80) 97 12/11/18 09:00 Room Air 12/11/18 04:00 98/54 (69) Intake and Output 12/10/18 12/11/18 19:00 07:00 Output Total 900 ml 250 ml Balance -900 ml -250 ml Output Urine Total 900 ml 250 ml # Bowel Movements 2 Laboratory Tests 12/11/18 12:20: White Blood Count 7.0, Red Blood Count 3.91L, Hemoglobin 11.9L, Hematocrit 36.1L , Mean Corpuscular Volume 92, Mean Corpuscular Hemoglobin 30.5, Mean Corpuscular Hemoglobin Concent 33.0, Red Cell Distribution Width 12.7, Platelet Count 129L, Mean Platelet Volume 11.4H, Neutrophils (%) (Auto) 62.8, Lymphocytes (%) (Auto) 22.8, Monocytes (%) (Auto) 10.1H, Eosinophils (%) (Auto) 3.4H, Basophils (%) (Auto) 0.8, Sodium Level 144, Potassium Level 3.8, Chloride Level 106, Carbon Dioxide Level 26, Anion Gap 12, Blood Urea Nitrogen 13, Creatinine 0.5L, Estimat Glomerular Filtration Rate > 60, Glucose Level 104, Calcium Level 9.2 Height (Feet): 5 Height (Inches): 6.00 Weight (Pounds): 128 Katherine Orozco MD Dec 11, 2018 22:52
[2018-12-12] VITALS: BP 115/61
[2018-12-12 04:00] VITALS: BP 152/66
--- NOTE | 2018-12-12 04:00 | NUR ---
NURSE NOTES: Pt refused all PO medication. Had no IV access and could not administer IV meds. Pt refused accu checks and blood draw this am despite education on risks and benefits.
--- NOTE | 2018-12-12 07:42 | NUR ---
HAND-OFF: Report given to JULIET Diaz
--- NOTE | 2018-12-12 08:25 | NUR ---
NURSE NOTES: Patient alert to name,respirations unlabored,patient state he is ok but he will not allow us to take his vital signs at this time.Vargas catheter is in place and draining megan color urine.Call light within reach,bed alarm is on .
--- NOTE | 2018-12-12 08:51 | General Progress Note ---
Assessment/Plan Problem List: (1) Hematuria ICD Codes: R31.9 - Hematuria, unspecified SNOMED: 71280542 (2) Severe malnutrition ICD Codes: E43 - Unspecified severe protein-calorie malnutrition SNOMED: 28428139 (3) Diabetes mellitus type 2, insulin dependent ICD Codes: E11.9 - Type 2 diabetes mellitus without complications; Z79.4 - alf (current) use of insulin SNOMED: 653057496 (4) Schizoaffective disorder ICD Codes: F25.9 - Schizoaffective disorder, unspecified SNOMED: 24773371 (5) HTN (hypertension) ICD Codes: I10 - Essential (primary) hypertension SNOMED: 57307198 Assessment/Plan POLST reviewed noted with no artificial feeding. patient refusing all care, brother wants to respect patients wishes refusing to try to eat or drink recommend hospice care No plans for PEG placement. advance diet dc planning Subjective ROS Limited/Unobtainable: No Allergies: Coded Allergies: DIVALPROEX SODIUM (Verified Allergy, Unknown, 06/01/18) PENICILLINS (Unverified Allergy, Unknown, 11/06/18) Tolerates cephalosporins Objective Last 24 Hour Vital Signs Date Time Temp Pulse Resp B/P (MAP) Pulse Ox O2 Delivery O2 Flow Rate FiO2 12/12/18 04:00 97.4 62 18 152/66 (94) 97 12/12/18 00:00 97.7 65 18 115/61 (79) 100 12/11/18 21:00 74 108/70 12/11/18 21:00 Room Air 12/11/18 20:00 97.4 76 17 108/70 (83) 99 12/11/18 16:00 98.0 83 18 111/65 (80) 97 12/11/18 09:00 Room Air Intake and Output 12/11/18 12/12/18 18:59 06:59 Output Total 200 ml 300 ml Balance -200 ml -300 ml Output Urine Total 200 ml 300 ml # Bowel Movements 1 Laboratory Tests 12/11/18 12:20: White Blood Count 7.0, Red Blood Count 3.91L, Hemoglobin 11.9L, Hematocrit 36.1L , Mean Corpuscular Volume 92, Mean Corpuscular Hemoglobin 30.5, Mean Corpuscular Hemoglobin Concent 33.0, Red Cell Distribution Width 12.7, Platelet Count 129L, Mean Platelet Volume 11.4H, Neutrophils (%) (Auto) 62.8, Lymphocytes (%) (Auto) 22.8, Monocytes (%) (Auto) 10.1H, Eosinophils (%) (Auto) 3.4H, Basophils (%) (Auto) 0.8, Sodium Level 144, Potassium Level 3.8, Chloride Level 106, Carbon Dioxide Level 26, Anion Gap 12, Blood Urea Nitrogen 13, Creatinine 0.5L, Estimat Glomerular Filtration Rate > 60, Glucose Level 104, Calcium Level 9.2 Height (Feet): 5 Height (Inches): 6.00 Weight (Pounds): 117 General Appearance: no apparent distress EENT: normal ENT inspection Neck: supple Cardiovascular: normal rate Respiratory/Chest: decreased breath sounds Abdomen: normal bowel sounds, non tender, soft Extremities: non-tender Louis Mcneil MD Dec 12, 2018 08:51
[2018-12-12] MEDS: Pantoprazole Inj IV SCH (08:58)
[2018-12-12] MEDS: Metoprolol 25mg tab ORAL SCH ×2 (08:59→20:05)
[2018-12-12] MEDS: levETIRAcetam 500mg/NS100ml 100 ML IVPB SCH ×2 (08:59→20:05)
[2018-12-12] MEDS: Heparin 5000 units/ml inj SUBQ SCH ×2 (09:00→20:05)
[2018-12-12 10:46] LABS: BASOPHILS % (AUTO) 0.9 % (0.0-2.0); EOSINOPHILS % (AUTO) 2.3 % (0.0-3.0); HEMATOCRIT 35.9 % (42.0-52.0); HEMOGLOBIN 11.8 G/DL (14.2-18.0); LYMPHOCYTES % (AUTO) 20.8 % (20.0-45.0); MEAN CORPUSCULAR VOLUME 92 FL (80-99); MONOCYTES % (AUTO) 8.3 % (1.0-10.0); NEUTROPHILS % (AUTO) 67.7 % (45.0-75.0); PLATELET COUNT 139 K/UL (150-450); RED BLOOD COUNT 3.88 M/UL (4.70-6.10); RED CELL DISTRIBUTION WIDTH 12.1 % (11.6-14.8)
[2018-12-12] MEDS: D5 1/2NS w/KCl 20mEq 1,000 ML IV SCH (11:00)
[2018-12-12 11:18] LABS: ANION GAP 15 mmol/L (5-15); BLOOD UREA NITROGEN 16 mg/dL (7-18); CALCIUM 9.2 MG/DL (8.5-10.1); CARBON DIOXIDE 24 MMOL/L (21-32); CHLORIDE 105 MMOL/L (98-107); CREATININE 0.5 MG/DL (0.55-1.30); POTASSIUM 3.4 MMOL/L (3.5-5.1); SODIUM 144 MMOL/L (136-145)
--- NOTE | 2018-12-12 11:33 | NUR ---
NURSE NOTES: Patient refusing iv,accuchecks when attempting to talk with patient patient state go away.
--- NOTE | 2018-12-12 12:39 | Internal Med Progress Note ---
Subjective Date of Service: Dec 12, 2018 Physician Name Manjinder Marley Attending Physician Ean Joyce MD Current Medications Medications (Trade) Dose Ordered Sig/Cristofer Route PRN Reason Start Time Stop Time Status Last Admin Dose Admin Acetaminophen (Tylenol) 650 mg Q4H PRN ORAL fever 12/03/18 21:45 01/02/19 21:44 Al Hydroxide/Mg Hydroxide (Mylanta II) 30 ml Q6H PRN ORAL dyspepsia 12/03/18 21:45 01/02/19 21:44 Dextrose (Dextrose 50%) 25 ml Q30M PRN IV Hypoglycemia 12/03/18 21:45 01/02/19 21:44 Dextrose (Dextrose 50%) 50 ml Q30M PRN IV Hypoglycemia 12/03/18 21:45 01/02/19 21:44 Dextrose/ Electrolytes 1,000 ml @ 75 mls/hr [id number] IV 12/10/18 19:00 01/09/19 18:59 Diphenhydramine HCl (Benadryl) 25 mg Q6H PRN ORAL Itching/Pruritis 12/03/18 21:45 01/02/19 21:44 Heparin Sodium (Porcine) (Heparin 5000 units/ml) 5,000 units EVERY 12 HOURS SUBQ 12/04/18 09:00 01/03/19 08:59 Levetiracetam 100 ml @ 400 mls/hr Q12HR IVPB 12/04/18 21:00 01/03/19 20:59 12/04/18 20:31 Lorazepam (Ativan 2mg/ml 1ml) 1 mg Q4H PRN IM agitation 12/08/18 23:30 12/15/18 23:29 12/09/18 01:39 Metoclopramide HCl (Reglan) 10 mg Q4H PRN IVP servere nausea 12/03/18 21:45 01/02/19 21:44 Metoprolol Tartrate (Lopressor) 25 mg Q12HR ORAL 12/04/18 21:00 01/03/19 20:59 Nitroglycerin (Ntg) 0.4 mg Q5M X 3 DOSES PRN SL Prn Chest Pain 12/03/18 21:45 01/02/19 21:44 Ondansetron HCl (Zofran) 4 mg Q6H PRN IVP Nausea & Vomiting 12/03/18 21:45 01/02/19 21:44 Pantoprazole (Protonix) 40 mg DAILY IV 12/04/18 09:00 01/03/19 08:59 12/04/18 09:17 Polyethylene Glycol (Miralax) 17 gm HSPRN PRN ORAL Constipation 12/03/18 21:45 01/02/19 21:44 Promethazine HCl 25 mg/Sodium Chloride 56 ml @ 110 mls/hr Q6H PRN IV Refractory N/V 12/03/18 21:45 01/02/19 21:44 Allergies: Coded Allergies: DIVALPROEX SODIUM (Verified Allergy, Unknown, 06/01/18) PENICILLINS (Unverified Allergy, Unknown, 11/06/18) Tolerates cephalosporins ROS Limited/Unobtainable: Yes Subjective 58 YO M admitted with G-tube malunction. Cover for Int tasha-Dr Joyce Objective Last Vital Signs Date Time Temp Pulse Resp B/P (MAP) Pulse Ox O2 Delivery O2 Flow Rate FiO2 12/12/18 09:00 Room Air 12/12/18 04:00 97.4 62 18 152/66 (94) 97 Laboratory Tests Test 12/12/18 10:15 White Blood Count 6.0 K/UL (4.8-10.8) Red Blood Count 3.88 M/UL (4.70-6.10) L Hemoglobin 11.8 G/DL (14.2-18.0) L Hematocrit 35.9 % (42.0-52.0) L Mean Corpuscular Volume 92 FL (80-99) Mean Corpuscular Hemoglobin 30.3 PG (27.0-31.0) Mean Corpuscular Hemoglobin Concent 32.7 G/DL (32.0-36.0) Red Cell Distribution Width 12.1 % (11.6-14.8) Platelet Count 139 K/UL (150-450) L Mean Platelet Volume 10.4 FL (6.5-10.1) H Neutrophils (%) (Auto) 67.7 % (45.0-75.0) Lymphocytes (%) (Auto) 20.8 % (20.0-45.0) Monocytes (%) (Auto) 8.3 % (1.0-10.0) Eosinophils (%) (Auto) 2.3 % (0.0-3.0) Basophils (%) (Auto) 0.9 % (0.0-2.0) Sodium Level 144 MMOL/L (136-145) Potassium Level 3.4 MMOL/L (3.5-5.1) L Chloride Level 105 MMOL/L (98-107) Carbon Dioxide Level 24 MMOL/L (21-32) Anion Gap 15 mmol/L (5-15) Blood Urea Nitrogen 16 mg/dL (7-18) Creatinine 0.5 MG/DL (0.55-1.30) L Estimat Glomerular Filtration Rate > 60 mL/min (>60) Glucose Level 96 MG/DL (74-106) Calcium Level 9.2 MG/DL (8.5-10.1) Intake and Output 12/11/18 12/12/18 19:00 07:00 Output Total 200 ml 300 ml Balance -200 ml -300 ml Output Urine Total 200 ml 300 ml # Bowel Movements 1 Objective Objective GENERAL: The patient is awake, opens his eyes, cachectic with malnutrition, less agitated, and combative. HEAD AND NECK: Pupils equal and reactive to light. Anicteric. NECK: Supple. No JVD. LUNGS: poor air entry. No wheeze or rales. Poor inspiratory effort. HEART: S1 and S2. Distant heart sounds. No murmurs or gallops. ABDOMEN: Soft, not distended not tender, old G-tube site closed., EXTREMITIES: No cyanosis or clubbing. left AKA with intact stump, right heel ulceration with muscle atrophy in bilateral lower extremities. NEUROLOGIC: Cranial nerves II through XII grossly intact. The patient is moving all the extremities spontaneously. Assessment/Plan Assessment/Plan Assessment/Plan Assessment/Plan Assessment/Plan ASSESSMENT: 1. G-tube malfunctioning with dislodge. 2. Dysphagia, status post feeding tube placement. 3. Hypertension. 4. Diabetes, type 2. 5. Alzheimer dementia. 6. History of CVA. 7. ATN / acute kidney injury. 8. Acute toxic metabolic encephalopathy. 9. Severe protein-calorie malnutrition with cachexia. 10. Status post left BKA. 11. Hypokalemia PLAN: 1. In medical floor. 2. We will follow up with Dr. Sanchez from Pulmonary/Critical Care, from General Surgery, and Dr. Mcneil from Gastroenterology. 3. Code status is DNR/DNI. 4. DVT prophylaxis, heparin subcutaneous. 5. no plan for PEG placement soon-see GI note. 6. Monitor laboratory. 7. Defer PEG, follow up bioethics and ST evaluation. 8. Discharge planning 9. Continue D5 1/2 NS + 20 meq kcl/L Manjinder Marley MD Dec 12, 2018 12:39
--- NOTE | 2018-12-12 13:31 | NUR ---
*-* INSURANCE *-* CLINICALS ONLY FAXED TO: [id number] NCM: MARIS Sanchez P- [phone] F- [phone]....
--- NOTE | 2018-12-12 14:02 | Pulmonology Progress Note ---
Assessment/Plan Problems: (1) Severe malnutrition (2) Malfunction of gastrostomy tube (3) Diabetes mellitus type 2, insulin dependent (4) Schizoaffective disorder (5) History of left above knee amputation Assessment/Plan pt and his family refusing PEG placement will send him back to his [facility] will start on liquid seizure medication, Keppra and prn IM ativan All medications and treatment were reviewed., Subjective HEENT: Repors: no symptoms Respiratory: Reports: no symptoms Allergies: Coded Allergies: DIVALPROEX SODIUM (Verified Allergy, Unknown, 06/01/18) PENICILLINS (Unverified Allergy, Unknown, 11/06/18) Tolerates cephalosporins Objective Last 24 Hour Vital Signs Date Time Temp Pulse Resp B/P (MAP) Pulse Ox O2 Delivery O2 Flow Rate FiO2 12/12/18 09:00 Room Air 12/12/18 04:00 97.4 62 18 152/66 (94) 97 12/12/18 00:00 97.7 65 18 115/61 (79) 100 12/11/18 21:00 74 108/70 12/11/18 21:00 Room Air 12/11/18 20:00 97.4 76 17 108/70 (83) 99 12/11/18 16:00 98.0 83 18 111/65 (80) 97 Intake and Output 12/11/18 12/12/18 19:00 07:00 Output Total 200 ml 300 ml Balance -200 ml -300 ml Output Urine Total 200 ml 300 ml # Bowel Movements 1 Objective General Appearance: WD/WN Respiratory/Chest: chest wall non-tender, lungs clear Cardiovascular: normal peripheral pulses, regular rhythm Abdomen: normal bowel sounds Genitourinary: normal external genitalia Skin: no rash Laboratory Tests 12/12/18 10:15: White Blood Count 6.0, Red Blood Count 3.88L, Hemoglobin 11.8L, Hematocrit 35.9L , Mean Corpuscular Volume 92, Mean Corpuscular Hemoglobin 30.3, Mean Corpuscular Hemoglobin Concent 32.7, Red Cell Distribution Width 12.1, Platelet Count 139L, Mean Platelet Volume 10.4H, Neutrophils (%) (Auto) 67.7, Lymphocytes (%) (Auto) 20.8, Monocytes (%) (Auto) 8.3, Eosinophils (%) (Auto) 2.3, Basophils (%) (Auto) 0.9, Sodium Level 144, Potassium Level 3.4L, Chloride Level 105, Carbon Dioxide Level 24, Anion Gap 15, Blood Urea Nitrogen 16, Creatinine 0.5L, Estimat Glomerular Filtration Rate > 60, Glucose Level 96, Calcium Level 9.2 Current Medications Medications (Trade) Dose Ordered Sig/Cristofer Route PRN Reason Start Time Stop Time Status Last Admin Dose Admin Acetaminophen (Tylenol) 650 mg Q4H PRN ORAL fever 12/03/18 21:45 01/02/19 21:44 Al Hydroxide/Mg Hydroxide (Mylanta II) 30 ml Q6H PRN ORAL dyspepsia 12/03/18 21:45 01/02/19 21:44 Dextrose (Dextrose 50%) 25 ml Q30M PRN IV Hypoglycemia 12/03/18 21:45 01/02/19 21:44 Dextrose (Dextrose 50%) 50 ml Q30M PRN IV Hypoglycemia 12/03/18 21:45 01/02/19 21:44 Dextrose/ Electrolytes 1,000 ml @ 75 mls/hr [id number] IV 12/10/18 19:00 01/09/19 18:59 Diphenhydramine HCl (Benadryl) 25 mg Q6H PRN ORAL Itching/Pruritis 12/03/18 21:45 01/02/19 21:44 Heparin Sodium (Porcine) (Heparin 5000 units/ml) 5,000 units EVERY 12 HOURS SUBQ 12/04/18 09:00 01/03/19 08:59 Levetiracetam 100 ml @ 400 mls/hr Q12HR IVPB 12/04/18 21:00 01/03/19 20:59 12/04/18 20:31 Lorazepam (Ativan 2mg/ml 1ml) 1 mg Q4H PRN IM agitation 12/08/18 23:30 12/15/18 23:29 12/09/18 01:39 Metoclopramide HCl (Reglan) 10 mg Q4H PRN IVP servere nausea 12/03/18 21:45 01/02/19 21:44 Metoprolol Tartrate (Lopressor) 25 mg Q12HR ORAL 12/04/18 21:00 01/03/19 20:59 Nitroglycerin (Ntg) 0.4 mg Q5M X 3 DOSES PRN SL Prn Chest Pain 12/03/18 21:45 01/02/19 21:44 Ondansetron HCl (Zofran) 4 mg Q6H PRN IVP Nausea & Vomiting 12/03/18 21:45 01/02/19 21:44 Pantoprazole (Protonix) 40 mg DAILY IV 12/04/18 09:00 01/03/19 08:59 12/04/18 09:17 Polyethylene Glycol (Miralax) 17 gm HSPRN PRN ORAL Constipation 12/03/18 21:45 01/02/19 21:44 Promethazine HCl 25 mg/Sodium Chloride 56 ml @ 110 mls/hr Q6H PRN IV Refractory N/V 12/03/18 21:45 01/02/19 21:44 Dony Sanchez MD Dec 12, 2018 14:02
--- NOTE | 2018-12-12 15:21 | NUR ---
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 SEVERE MALNUTRITION VS:BP 152/66, P 62, T 97.4, RR 18, SpO2 97 RBC 3.88, Hgb 11.8, Hct 35.9, K3.4, CR 0.5 IS: D5 x1L IV METOPROLOL 25mg LEVETIRACETAM 100ml IVPB HEPARIN SUBQ PROTONIX 40mg IV MED/SURG STATUS AWAITING PLACEMENT AWAITING PLACEMENT
[2018-12-12 16:00] VITALS: BP 105/63
--- NOTE | 2018-12-12 19:05 | NUR ---
NURSE NOTES: Patient resting,patient not eating meals but onyl want water and will take in some juice.Vargas draining clear megan urine.Call light within reach,bed alarm is on.
--- NOTE | 2018-12-12 19:55 | NUR ---
HAND-OFF: Report given to YASH CHUNG.
--- NOTE | 2018-12-12 19:56 | NUR ---
NURSE NOTES: RECEIVED PATIENT IN BED, RESTING. PATIENT alert and oriented x 2. NO SIGNS OF RESPIRATORY DISTRESS. NO IV- MD aware. Pt on room air BED IN LOWEST POSITION, bed locked, side rails x2, bed alarm on. CALL LIGHT WITHIN REACH. Pt has not been eating. Only drinking fluids. Vargas catheter in place and draining light megan urine. Will continue to monitor. Pt resistive to and has been refusing meds and accu checks however allowed one accu check today of 3. Continuing to monitor
--- NOTE | 2018-12-12 20:53 | NUR ---
NURSE NOTES: RECEIVED PATIENT IN BED, RESTING. PATIENT alert and oriented x 2. NO SIGNS OF RESPIRATORY DISTRESS. NO IV- MD aware. Pt on room air BED IN LOWEST POSITION, bed locked, side rails x2, bed alarm on. CALL LIGHT WITHIN REACH. Pt has not been eating. Only drinking fluids. Vargas catheter in place and draining light megan urine. Will continue to monitor. Pt resistive to and has been refusing meds and accu checks however allowed one accu check today of 3. Continuing to monitor Addendum: 12/12/18 at 2056 by Shanon Tan RN time incorrect
[2018-12-12 21:00] VITALS: BP 118/65
--- NOTE | 2018-12-12 22:47 | General Progress Note ---
Assessment/Plan Problem List: (1) Schizoaffective disorder ICD Codes: F25.9 - Schizoaffective disorder, unspecified SNOMED: 09186054 Assessment/Plan Haldol dec 25mg IM the pt lacks capacity to make decisions Subjective Neurologic/Psychiatric: Reports: anxiety, depressed Allergies: Coded Allergies: DIVALPROEX SODIUM (Verified Allergy, Unknown, 06/01/18) PENICILLINS (Unverified Allergy, Unknown, 11/06/18) Tolerates cephalosporins Subjective the pt is disorganized and confused the pt has waxing and waning Objective Last 24 Hour Vital Signs Date Time Temp Pulse Resp B/P (MAP) Pulse Ox O2 Delivery O2 Flow Rate FiO2 12/12/18 20:05 67 105/63 12/12/18 16:00 97.2 67 20 105/63 (77) 99 12/12/18 09:00 Room Air 12/12/18 04:00 97.4 62 18 152/66 (94) 97 12/12/18 00:00 97.7 65 18 115/61 (79) 100 Intake and Output 12/11/18 12/12/18 19:00 07:00 Output Total 200 ml 300 ml Balance -200 ml -300 ml Output Urine Total 200 ml 300 ml # Bowel Movements 1 Laboratory Tests 12/12/18 10:15: White Blood Count 6.0, Red Blood Count 3.88L, Hemoglobin 11.8L, Hematocrit 35.9L , Mean Corpuscular Volume 92, Mean Corpuscular Hemoglobin 30.3, Mean Corpuscular Hemoglobin Concent 32.7, Red Cell Distribution Width 12.1, Platelet Count 139L, Mean Platelet Volume 10.4H, Neutrophils (%) (Auto) 67.7, Lymphocytes (%) (Auto) 20.8, Monocytes (%) (Auto) 8.3, Eosinophils (%) (Auto) 2.3, Basophils (%) (Auto) 0.9, Sodium Level 144, Potassium Level 3.4L, Chloride Level 105, Carbon Dioxide Level 24, Anion Gap 15, Blood Urea Nitrogen 16, Creatinine 0.5L, Estimat Glomerular Filtration Rate > 60, Glucose Level 96, Calcium Level 9.2 Height (Feet): 5 Height (Inches): 6.00 Weight (Pounds): 117 Katherine Orozco MD Dec 12, 2018 22:47
[2018-12-13] VITALS: BP 130/67
[2018-12-13] MEDS: D5 1/2NS w/KCl 20mEq 1,000 ML IV SCH ×2 (00:20→13:40)
[2018-12-13 04:00] VITALS: BP 113/61
[2018-12-13 06:34] LABS: BASOPHILS % (AUTO) 0.5 % (0.0-2.0); EOSINOPHILS % (AUTO) 2.7 % (0.0-3.0); HEMATOCRIT 33.9 % (42.0-52.0); HEMOGLOBIN 11.6 G/DL (14.2-18.0); LYMPHOCYTES % (AUTO) 23.9 % (20.0-45.0); MEAN CORPUSCULAR VOLUME 91 FL (80-99); MONOCYTES % (AUTO) 8.6 % (1.0-10.0); NEUTROPHILS % (AUTO) 64.3 % (45.0-75.0); PLATELET COUNT 148 K/UL (150-450); RED BLOOD COUNT 3.74 M/UL (4.70-6.10); RED CELL DISTRIBUTION WIDTH 12.5 % (11.6-14.8); WHITE BLOOD COUNT 5.3 K/UL (4.8-10.8)
[2018-12-13 06:59] LABS: ANION GAP 13 mmol/L (5-15); BLOOD UREA NITROGEN 9 mg/dL (7-18); CALCIUM 9.2 MG/DL (8.5-10.1); CARBON DIOXIDE 26 MMOL/L (21-32); CHLORIDE 100 MMOL/L (98-107); CREATININE 0.5 MG/DL (0.55-1.30); POTASSIUM 2.8 MMOL/L (3.5-5.1); SODIUM 139 MMOL/L (136-145)
--- NOTE | 2018-12-13 07:31 | NUR ---
HAND-OFF: Report given to JULIET Read.
--- NOTE | 2018-12-13 07:45 | NUR ---
NURSE NOTES: Received patient on bed, awake. No IV access, MD aware. Be din low and locked position, call light in reach. No signs of respiratory distress or pain. Room board updated, will continue to monitor.
[2018-12-13 08:00] VITALS: BP 109/66
--- NOTE | 2018-12-13 11:39 | NUR ---
NURSE NOTES: Received pt from JULIET FOSTER. Pt is confused and orient x2. pt is in RA. No SOB or acute respiratory distress noted. pt has no iv access and refused to have, Dr richard is aware. pt has ferreira cath in place is running well. all needs attended, bed is locked and is in the lowest position. call light within easy reach. will continue to monitor.
[2018-12-13] MEDS: levETIRAcetam 500mg/NS100ml 100 ML IVPB SCH ×2 (11:45→21:00)
[2018-12-13] MEDS: Pantoprazole Inj IV SCH (11:45)
[2018-12-13] MEDS: Metoprolol 25mg tab ORAL SCH ×2 (11:45→21:00)
[2018-12-13] MEDS: Heparin 5000 units/ml inj SUBQ SCH ×2 (11:45→21:00)
[2018-12-13 12:00] VITALS: BP 110/65
--- NOTE | 2018-12-13 12:00 | NUR ---
NURSE NOTES: Pt refused all meds and iv access, Dr richard visited pt he is aware about K 2.8 and other lab results and heis aware about pt refused all treatments. will continue to monitor.
--- NOTE | 2018-12-13 12:08 | NUR ---
HAND-OFF: Report given to JULIET Espinoza.
--- NOTE | 2018-12-13 12:20 | General Progress Note ---
Assessment/Plan Problem List: (1) Hematuria ICD Codes: R31.9 - Hematuria, unspecified SNOMED: 53557232 (2) Severe malnutrition ICD Codes: E43 - Unspecified severe protein-calorie malnutrition SNOMED: 33286949 (3) Diabetes mellitus type 2, insulin dependent ICD Codes: E11.9 - Type 2 diabetes mellitus without complications; Z79.4 - care home (current) use of insulin SNOMED: 847194852 (4) Schizoaffective disorder ICD Codes: F25.9 - Schizoaffective disorder, unspecified SNOMED: 65819319 (5) HTN (hypertension) ICD Codes: I10 - Essential (primary) hypertension SNOMED: 48838547 Assessment/Plan POLST reviewed noted with no artificial feeding. patient refusing all care, brother wants to respect patients wishes refusing to try to eat or drink recommend hospice care No plans for PEG placement. advance diet dc planning Subjective ROS Limited/Unobtainable: No Allergies: Coded Allergies: DIVALPROEX SODIUM (Verified Allergy, Unknown, 06/01/18) PENICILLINS (Unverified Allergy, Unknown, 11/06/18) Tolerates cephalosporins Objective Last 24 Hour Vital Signs Date Time Temp Pulse Resp B/P (MAP) Pulse Ox O2 Delivery O2 Flow Rate FiO2 12/13/18 09:00 Room Air 12/13/18 08:00 97.2 68 17 109/66 (80) 98 12/13/18 04:00 97.6 58 16 113/61 (78) 98 12/13/18 00:00 97.6 82 16 130/67 (88) 96 12/12/18 21:00 96.8 82 20 118/65 (82) 96 12/12/18 21:00 Room Air 12/12/18 20:05 67 105/63 12/12/18 16:00 97.2 67 20 105/63 (77) 99 Intake and Output 12/12/18 12/13/18 18:59 06:59 Intake Total 720 ml 2280 ml Output Total 275 ml 425 ml Balance 445 ml 1855 ml Intake Oral 720 ml 480 ml Other 1800 ml Output Urine Total 275 ml 425 ml # Voids 1 # Bowel Movements 1 Laboratory Tests 12/13/18 05:00: White Blood Count 5.3, Red Blood Count 3.74L, Hemoglobin 11.6L, Hematocrit 33.9L , Mean Corpuscular Volume 91, Mean Corpuscular Hemoglobin 30.9, Mean Corpuscular Hemoglobin Concent 34.1, Red Cell Distribution Width 12.5, Platelet Count 148L, Mean Platelet Volume 9.9, Neutrophils (%) (Auto) 64.3, Lymphocytes ( %) (Auto) 23.9, Monocytes (%) (Auto) 8.6, Eosinophils (%) (Auto) 2.7, Basophils (%) (Auto) 0.5, Sodium Level 139, Potassium Level 2.8L, Chloride Level 100, Carbon Dioxide Level 26, Anion Gap 13, Blood Urea Nitrogen 9, Creatinine 0.5L, Estimat Glomerular Filtration Rate > 60, Glucose Level 93, Calcium Level 9.2 Height (Feet): 5 Height (Inches): 6.00 Weight (Pounds): 117 General Appearance: no apparent distress EENT: normal ENT inspection Neck: supple Cardiovascular: normal peripheral pulses Respiratory/Chest: decreased breath sounds Abdomen: normal bowel sounds, non tender, soft Extremities: non-tender Louis Mcneil MD Dec 13, 2018 12:20
--- NOTE | 2018-12-13 12:36 | Pulmonology Progress Note ---
Assessment/Plan Problems: (1) Severe malnutrition (2) Malfunction of gastrostomy tube (3) Diabetes mellitus type 2, insulin dependent (4) Schizoaffective disorder (5) History of left above knee amputation Assessment/Plan pt and his family refusing PEG placement will send him back to his long-term will start on liquid seizure medication, Keppra and prn IM ativan All medications and treatment were reviewed., Subjective ROS Limited/Unobtainable: No Constitutional: Reports: no symptoms Allergies: Coded Allergies: DIVALPROEX SODIUM (Verified Allergy, Unknown, 06/01/18) PENICILLINS (Unverified Allergy, Unknown, 11/06/18) Tolerates cephalosporins Objective Last 24 Hour Vital Signs Date Time Temp Pulse Resp B/P (MAP) Pulse Ox O2 Delivery O2 Flow Rate FiO2 12/13/18 09:00 Room Air 12/13/18 08:00 97.2 68 17 109/66 (80) 98 12/13/18 04:00 97.6 58 16 113/61 (78) 98 12/13/18 00:00 97.6 82 16 130/67 (88) 96 12/12/18 21:00 96.8 82 20 118/65 (82) 96 12/12/18 21:00 Room Air 12/12/18 20:05 67 105/63 12/12/18 16:00 97.2 67 20 105/63 (77) 99 Intake and Output 12/12/18 12/13/18 18:59 06:59 Intake Total 720 ml 2280 ml Output Total 275 ml 425 ml Balance 445 ml 1855 ml Intake Oral 720 ml 480 ml Other 1800 ml Output Urine Total 275 ml 425 ml # Voids 1 # Bowel Movements 1 Objective General Appearance: WD/WN Respiratory/Chest: chest wall non-tender, lungs clear Cardiovascular: normal peripheral pulses, regular rhythm Abdomen: normal bowel sounds Genitourinary: normal external genitalia Skin: no rash Laboratory Tests 12/13/18 05:00: White Blood Count 5.3, Red Blood Count 3.74L, Hemoglobin 11.6L, Hematocrit 33.9L , Mean Corpuscular Volume 91, Mean Corpuscular Hemoglobin 30.9, Mean Corpuscular Hemoglobin Concent 34.1, Red Cell Distribution Width 12.5, Platelet Count 148L, Mean Platelet Volume 9.9, Neutrophils (%) (Auto) 64.3, Lymphocytes ( %) (Auto) 23.9, Monocytes (%) (Auto) 8.6, Eosinophils (%) (Auto) 2.7, Basophils (%) (Auto) 0.5, Sodium Level 139, Potassium Level 2.8L, Chloride Level 100, Carbon Dioxide Level 26, Anion Gap 13, Blood Urea Nitrogen 9, Creatinine 0.5L, Estimat Glomerular Filtration Rate > 60, Glucose Level 93, Calcium Level 9.2 Current Medications Medications (Trade) Dose Ordered Sig/Cristofer Route PRN Reason Start Time Stop Time Status Last Admin Dose Admin Acetaminophen (Tylenol) 650 mg Q4H PRN ORAL fever 12/03/18 21:45 01/02/19 21:44 Al Hydroxide/Mg Hydroxide (Mylanta II) 30 ml Q6H PRN ORAL dyspepsia 12/03/18 21:45 01/02/19 21:44 Dextrose (Dextrose 50%) 25 ml Q30M PRN IV Hypoglycemia 12/03/18 21:45 01/02/19 21:44 Dextrose (Dextrose 50%) 50 ml Q30M PRN IV Hypoglycemia 12/03/18 21:45 01/02/19 21:44 Dextrose/ Electrolytes 1,000 ml @ 75 mls/hr [id number] IV 12/10/18 19:00 01/09/19 18:59 Diphenhydramine HCl (Benadryl) 25 mg Q6H PRN ORAL Itching/Pruritis 12/03/18 21:45 01/02/19 21:44 Heparin Sodium (Porcine) (Heparin 5000 units/ml) 5,000 units EVERY 12 HOURS SUBQ 12/04/18 09:00 01/03/19 08:59 Levetiracetam 100 ml @ 400 mls/hr Q12HR IVPB 12/04/18 21:00 01/03/19 20:59 12/04/18 20:31 Lorazepam (Ativan 2mg/ml 1ml) 1 mg Q4H PRN IM agitation 12/08/18 23:30 12/15/18 23:29 12/09/18 01:39 Metoclopramide HCl (Reglan) 10 mg Q4H PRN IVP servere nausea 12/03/18 21:45 01/02/19 21:44 Metoprolol Tartrate (Lopressor) 25 mg Q12HR ORAL 12/04/18 21:00 01/03/19 20:59 Nitroglycerin (Ntg) 0.4 mg Q5M X 3 DOSES PRN SL Prn Chest Pain 12/03/18 21:45 01/02/19 21:44 Ondansetron HCl (Zofran) 4 mg Q6H PRN IVP Nausea & Vomiting 12/03/18 21:45 01/02/19 21:44 Pantoprazole (Protonix) 40 mg DAILY IV 12/04/18 09:00 01/03/19 08:59 12/04/18 09:17 Polyethylene Glycol (Miralax) 17 gm HSPRN PRN ORAL Constipation 12/03/18 21:45 01/02/19 21:44 Promethazine HCl 25 mg/Sodium Chloride 56 ml @ 110 mls/hr Q6H PRN IV Refractory N/V 12/03/18 21:45 01/02/19 21:44 Dony Sanchez MD Dec 13, 2018 12:36
--- NOTE | 2018-12-13 12:43 | NUR ---
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 97.2 HR 58 RR 16 B/P 113/61 RA 98% K 2.8 IS: IVF D5KCL @ 75ML/HR K-DUR PO KEPPRA IV PLACEMENT PENDING MED/SURG STATUS
--- NOTE | 2018-12-13 12:59 | Diagnostic Imaging Report ---
Indication:Abdominal pain Technique: Grayscale and duplex Doppler imaging of the abdomen performed. Comparison: None Findings: The aorta is severely calcified with suggestion of a fusiform aneurysm measuring at its maximum about 3.8 cm on this exam. Gallbladder is absent. The liver demonstrates a coarsened echotexture and is normal in size. The right kidney is small measuring about 7 cm to 8 cm. There is no hydronephrosis. The portal vein is patent by Doppler exam. Vargas catheter noted. No ascites seen. Much of the abdomen limited in evaluation due to overlying gas and bandages in the ventral abdominal wall. 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 Limited evaluation due to bandages and bowel gas. Small right kidney. Apparent cholecystectomy. Vargas catheter.
--- NOTE | 2018-12-13 14:14 | NUR ---
*-* INSURANCE *-* CLINICALS ONLY FAXED TO: [id number] NCM: MARIS Sanchez P- [phone] F- [phone]....
--- NOTE | 2018-12-13 15:14 | NUR ---
RD ASSESSMENT & RECOMMENDATIONS SEE CARE ACTIVITY FOR COMPLETE ASSESSMENT DAILY ESTIMATED NEEDS: Needs based on wt loss, underweight/ 49.6kg 30-40 kcals/kg 5605-9552 total kcals 1-1.5 g protein/kg 50-75 g total protein 25-30 mL/kg 8696-1311 total fluid mLs NUTRITION DIAGNOSIS: *Swallowing difficulty r/t dysphagia as evidenced by h/o PEG dep, POLST now indicates no TF, on mech soft chopped texture diet, refusing most meals. *Increased kcal and protein needs r/t underweight status, wt loss, wound healing as evidenced by pt is 63% IBW, w/ generalized severe wasting, possible recent significant wt loss of 10 lbs/8.4% wt loss in 1 month, admitted w/ multiple wounds, including DTI @ sacrum. CURRENT DIET:soft, mech soft chopped PO DIET RECOMMENDATIONS: LIBERALIZED REGULAR/ texture per ACQUISITION ASSOCIATE ADDITIONAL RECOMMENDATIONS: 1) Calibrated bedscale wt, weekly wts- recent wt loss, underweight 2) Monitor POC- comfort measures, no TF at this time 3) Wound healing- MVI x 1, Vit C 500mg QD, Demetri 1pkt BID : pt refusing all meds at this time 4) Ensure Enlive TID w/ meals if pt receptive 5) Encourage PO intake - refusing most meals
--- NOTE | 2018-12-13 15:38 | Surgery Progress Note ---
Surgery Progress Note Subjective Symptoms: pain same, passing flatus Objective Last 24 Hour Vital Signs Date Time Temp Pulse Resp B/P (MAP) Pulse Ox O2 Delivery O2 Flow Rate FiO2 12/13/18 12:00 97.2 68 17 110/65 (80) 100 12/13/18 11:45 68 109/66 12/13/18 09:00 Room Air 12/13/18 08:00 97.2 68 17 109/66 (80) 98 12/13/18 04:00 97.6 58 16 113/61 (78) 98 12/13/18 00:00 97.6 82 16 130/67 (88) 96 12/12/18 21:00 96.8 82 20 118/65 (82) 96 12/12/18 21:00 Room Air 12/12/18 20:05 67 105/63 12/12/18 16:00 97.2 67 20 105/63 (77) 99 I&O Intake and Output 12/12/18 12/13/18 19:00 07:00 Intake Total 720 ml 2280 ml Output Total 275 ml 425 ml Balance 445 ml 1855 ml Intake Oral 720 ml 480 ml Other 1800 ml Output Urine Total 275 ml 425 ml # Voids 1 # Bowel Movements 1 Dressing: other Wound: other Drains: other Cardiovascular: RSR Respiratory: decreased breath sounds Abdomen: soft, non-tender, non-distended Extremities: no cyanosis Laboratory Tests Test 12/13/18 05:00 White Blood Count 5.3 K/UL (4.8-10.8) Red Blood Count 3.74 M/UL (4.70-6.10) L Hemoglobin 11.6 G/DL (14.2-18.0) L Hematocrit 33.9 % (42.0-52.0) L Mean Corpuscular Volume 91 FL (80-99) Mean Corpuscular Hemoglobin 30.9 PG (27.0-31.0) Mean Corpuscular Hemoglobin Concent 34.1 G/DL (32.0-36.0) Red Cell Distribution Width 12.5 % (11.6-14.8) Platelet Count 148 K/UL (150-450) L Mean Platelet Volume 9.9 FL (6.5-10.1) Neutrophils (%) (Auto) 64.3 % (45.0-75.0) Lymphocytes (%) (Auto) 23.9 % (20.0-45.0) Monocytes (%) (Auto) 8.6 % (1.0-10.0) Eosinophils (%) (Auto) 2.7 % (0.0-3.0) Basophils (%) (Auto) 0.5 % (0.0-2.0) Sodium Level 139 MMOL/L (136-145) Potassium Level 2.8 MMOL/L (3.5-5.1) L Chloride Level 100 MMOL/L (98-107) Carbon Dioxide Level 26 MMOL/L (21-32) Anion Gap 13 mmol/L (5-15) Blood Urea Nitrogen 9 mg/dL (7-18) Creatinine 0.5 MG/DL (0.55-1.30) L Estimat Glomerular Filtration Rate > 60 mL/min (>60) Glucose Level 93 MG/DL (74-106) Calcium Level 9.2 MG/DL (8.5-10.1) Plan Problems: (1) Malfunction of gastrostomy tube Assessment & Plan: Patient presents with dislodged gastric feeding tube. Prior site of tube near closed. As per gastrology no patient's prior records demonstrate no artificial feeding. PT HAS BEEN REFUSING NURSING CARE AND PO TRIALS. PER QUALITY ASSURANCE ASSOCIATE, SPOKE TO PT AND PT AGREED PO TRIALS. PT SEEN AT BEDSIDE IN PM. ALERT, ATTEMPTED PO TRIALS AND ORAL CARE. PT REFUSED BY SHAKING HIS HEAD AND LOOKING AWAY EVEN GIVEN MAX ENCOURAGEMENT. RN, MICHAEL BHARDWAJ, ALSO AT BEDSIDE TO ENCOURAGEMENT PT FOR PO TRIALS. HOWEVER, PT REFUSED. UNABLE TO FULLY ASSESS PT'S SWALLOWING FUNCTION. PER PT AND FAMILY WISHES, NO ARTIFICIAL FEEDING, INCLUDING TUBE FEEDING. IF PO IS GIVEN FOR QUALITY OF LIFE COMFORT FEEDING, CONSIDER LIQUIFIED PUREED, LIKE NECTAR THICK SOUP CONSISTENCY WITH NECTAR THICK LIQUIDS WITH STRICT ASPIRATION PRECAUTIONS WITH 1TO1 FEEDING. IV fluids refusing care plans d/c planning cont with wound instructions upon dc Shiv Horvath Dec 13, 2018 15:37
[2018-12-13 16:00] VITALS: BP 87/64
--- NOTE | 2018-12-13 17:22 | NUR ---
NURSE NOTES: Dr AGUIRRE visited pt, he is aware about K 2.8 and other lab results and about pt refused all medications and iv access. will continue to monitor. Addendum: 12/13/18 at 1746 by Olga Stokes RN also aware BP 87/64 no new order. will continue to monitor.
--- NOTE | 2018-12-13 17:38 | Internal Med Progress Note ---
Subjective Date of Service: Dec 13, 2018 Physician Name Manjinder Marley Attending Physician Ean Joyce MD Current Medications Medications (Trade) Dose Ordered Sig/Cristofer Route PRN Reason Start Time Stop Time Status Last Admin Dose Admin Acetaminophen (Tylenol) 650 mg Q4H PRN ORAL fever 12/03/18 21:45 01/02/19 21:44 Al Hydroxide/Mg Hydroxide (Mylanta II) 30 ml Q6H PRN ORAL dyspepsia 12/03/18 21:45 01/02/19 21:44 Dextrose (Dextrose 50%) 25 ml Q30M PRN IV Hypoglycemia 12/03/18 21:45 01/02/19 21:44 Dextrose (Dextrose 50%) 50 ml Q30M PRN IV Hypoglycemia 12/03/18 21:45 01/02/19 21:44 Dextrose/ Electrolytes 1,000 ml @ 75 mls/hr [id number] IV 12/10/18 19:00 01/09/19 18:59 Diphenhydramine HCl (Benadryl) 25 mg Q6H PRN ORAL Itching/Pruritis 12/03/18 21:45 01/02/19 21:44 Heparin Sodium (Porcine) (Heparin 5000 units/ml) 5,000 units EVERY 12 HOURS SUBQ 12/04/18 09:00 01/03/19 08:59 Levetiracetam 100 ml @ 400 mls/hr Q12HR IVPB 12/04/18 21:00 01/03/19 20:59 12/04/18 20:31 Lorazepam (Ativan 2mg/ml 1ml) 1 mg Q4H PRN IM agitation 12/08/18 23:30 12/15/18 23:29 12/09/18 01:39 Metoclopramide HCl (Reglan) 10 mg Q4H PRN IVP servere nausea 12/03/18 21:45 01/02/19 21:44 Metoprolol Tartrate (Lopressor) 25 mg Q12HR ORAL 12/04/18 21:00 01/03/19 20:59 Nitroglycerin (Ntg) 0.4 mg Q5M X 3 DOSES PRN SL Prn Chest Pain 12/03/18 21:45 01/02/19 21:44 Ondansetron HCl (Zofran) 4 mg Q6H PRN IVP Nausea & Vomiting 12/03/18 21:45 01/02/19 21:44 Pantoprazole (Protonix) 40 mg DAILY IV 12/04/18 09:00 01/03/19 08:59 12/04/18 09:17 Polyethylene Glycol (Miralax) 17 gm HSPRN PRN ORAL Constipation 12/03/18 21:45 01/02/19 21:44 Promethazine HCl 25 mg/Sodium Chloride 56 ml @ 110 mls/hr Q6H PRN IV Refractory N/V 12/03/18 21:45 01/02/19 21:44 Allergies: Coded Allergies: DIVALPROEX SODIUM (Verified Allergy, Unknown, 06/01/18) PENICILLINS (Unverified Allergy, Unknown, 11/06/18) Tolerates cephalosporins ROS Limited/Unobtainable: No Constitutional: Reports: no symptoms HEENT: Reports: no symptoms Cardiovascular: Reports: no symptoms Respiratory: Reports: no symptoms Gastrointestinal/Abdominal: Reports: no symptoms Genitourinary: Reports: no symptoms Neurologic/Psychiatric: Reports: no symptoms Subjective 58 YO M admitted with G-tube malunction. Cover for Int med-Dr Joyce. Refusing meds Objective Last Vital Signs Date Time Temp Pulse Resp B/P (MAP) Pulse Ox O2 Delivery O2 Flow Rate FiO2 12/13/18 12:00 97.2 68 17 110/65 (80) 100 12/13/18 09:00 Room Air Laboratory Tests Test 12/13/18 05:00 White Blood Count 5.3 K/UL (4.8-10.8) Red Blood Count 3.74 M/UL (4.70-6.10) L Hemoglobin 11.6 G/DL (14.2-18.0) L Hematocrit 33.9 % (42.0-52.0) L Mean Corpuscular Volume 91 FL (80-99) Mean Corpuscular Hemoglobin 30.9 PG (27.0-31.0) Mean Corpuscular Hemoglobin Concent 34.1 G/DL (32.0-36.0) Red Cell Distribution Width 12.5 % (11.6-14.8) Platelet Count 148 K/UL (150-450) L Mean Platelet Volume 9.9 FL (6.5-10.1) Neutrophils (%) (Auto) 64.3 % (45.0-75.0) Lymphocytes (%) (Auto) 23.9 % (20.0-45.0) Monocytes (%) (Auto) 8.6 % (1.0-10.0) Eosinophils (%) (Auto) 2.7 % (0.0-3.0) Basophils (%) (Auto) 0.5 % (0.0-2.0) Sodium Level 139 MMOL/L (136-145) Potassium Level 2.8 MMOL/L (3.5-5.1) L Chloride Level 100 MMOL/L (98-107) Carbon Dioxide Level 26 MMOL/L (21-32) Anion Gap 13 mmol/L (5-15) Blood Urea Nitrogen 9 mg/dL (7-18) Creatinine 0.5 MG/DL (0.55-1.30) L Estimat Glomerular Filtration Rate > 60 mL/min (>60) Glucose Level 93 MG/DL (74-106) Calcium Level 9.2 MG/DL (8.5-10.1) Intake and Output 12/12/18 12/13/18 19:00 07:00 Intake Total 720 ml 2280 ml Output Total 275 ml 425 ml Balance 445 ml 1855 ml Intake Oral 720 ml 480 ml Other 1800 ml Output Urine Total 275 ml 425 ml # Voids 1 # Bowel Movements 1 Objective Objective GENERAL: The patient is awake, opens his eyes, cachectic with malnutrition, less agitated, and combative. HEAD AND NECK: Pupils equal and reactive to light. Anicteric. NECK: Supple. No JVD. LUNGS: poor air entry. No wheeze or rales. Poor inspiratory effort. HEART: S1 and S2. Distant heart sounds. No murmurs or gallops. ABDOMEN: Soft, not distended not tender, old G-tube site closed., EXTREMITIES: No cyanosis or clubbing. left AKA with intact stump, right heel ulceration with muscle atrophy in bilateral lower extremities. NEUROLOGIC: Cranial nerves II through XII grossly intact. The patient is moving all the extremities spontaneously. Assessment/Plan Assessment/Plan Assessment/Plan Assessment/Plan Assessment/Plan ASSESSMENT: 1. G-tube malfunctioning with dislodge. 2. Dysphagia, status post feeding tube placement. 3. Hypertension. 4. Diabetes, type 2. 5. Alzheimer dementia. 6. History of CVA. 7. ATN / acute kidney injury. 8. Acute toxic metabolic encephalopathy. 9. Severe protein-calorie malnutrition with cachexia. 10. Status post left BKA. 11. Hypokalemia-replace K+ PLAN: 1. In medical floor. 2. We will follow up with Dr. Sanchez from Pulmonary/Critical Care, from General Surgery, and Dr. Mcneil from Gastroenterology. 3. Code status is DNR/DNI. 4. DVT prophylaxis, heparin subcutaneous. 5. no plan for PEG placement soon-see GI note. 6. Monitor laboratory. 7. Defer PEG, follow up bioethics and ST evaluation. 8. Discharge planning 9. Continue D5 1/2 NS + 20 meq kcl/L 10. refusing meds Manjinder Marley MD Dec 13, 2018 17:38
--- NOTE | 2018-12-13 19:52 | NUR ---
NURSE NOTES: Received pt from JULIET Espinoza. Pt is awake and alert. Oriented to self and location and time. Pt on room air, no s/sx of respiratory distress, breathing even and unlabored. PT has no iv access and refused, MD Dr richard is aware. pt has ferreira cath in place is running well. All needs attended, bed is locked and is in the lowest position, bed alarm is on. Repositioned patient. call light within easy reach. will continue to monitor. Going to bed patient food as requested as he said he did not receive as requested earlier.
--- NOTE | 2018-12-13 19:52 | NUR ---
HAND-OFF: Report given to JULIET STOUT.
[2018-12-13 20:00] VITALS: BP 102/61
--- NOTE | 2018-12-13 22:49 | General Progress Note ---
Assessment/Plan Problem List: (1) Schizoaffective disorder ICD Codes: F25.9 - Schizoaffective disorder, unspecified SNOMED: 75656895 Assessment/Plan Haldol dec 25mg IM the pt lacks capacity to make decisions Subjective Neurologic/Psychiatric: Reports: anxiety Allergies: Coded Allergies: DIVALPROEX SODIUM (Verified Allergy, Unknown, 06/01/18) PENICILLINS (Unverified Allergy, Unknown, 11/06/18) Tolerates cephalosporins Subjective the pt is disorganized and confused the pt has waxing and waning Objective Last 24 Hour Vital Signs Date Time Temp Pulse Resp B/P (MAP) Pulse Ox O2 Delivery O2 Flow Rate FiO2 12/13/18 21:00 81 102/61 12/13/18 21:00 Room Air 12/13/18 20:00 81 16 102/61 (75) 12/13/18 16:00 97.3 97 17 87/64 (72) 96 12/13/18 12:00 97.2 68 17 110/65 (80) 100 12/13/18 11:45 68 109/66 12/13/18 09:00 Room Air 12/13/18 08:00 97.2 68 17 109/66 (80) 98 12/13/18 04:00 97.6 58 16 113/61 (78) 98 12/13/18 00:00 97.6 82 16 130/67 (88) 96 Intake and Output 12/12/18 12/13/18 19:00 07:00 Intake Total 720 ml 2280 ml Output Total 275 ml 425 ml Balance 445 ml 1855 ml Intake Oral 720 ml 480 ml Other 1800 ml Output Urine Total 275 ml 425 ml # Voids 1 # Bowel Movements 1 Laboratory Tests 12/13/18 05:00: White Blood Count 5.3, Red Blood Count 3.74L, Hemoglobin 11.6L, Hematocrit 33.9L , Mean Corpuscular Volume 91, Mean Corpuscular Hemoglobin 30.9, Mean Corpuscular Hemoglobin Concent 34.1, Red Cell Distribution Width 12.5, Platelet Count 148L, Mean Platelet Volume 9.9, Neutrophils (%) (Auto) 64.3, Lymphocytes ( %) (Auto) 23.9, Monocytes (%) (Auto) 8.6, Eosinophils (%) (Auto) 2.7, Basophils (%) (Auto) 0.5, Sodium Level 139, Potassium Level 2.8L, Chloride Level 100, Carbon Dioxide Level 26, Anion Gap 13, Blood Urea Nitrogen 9, Creatinine 0.5L, Estimat Glomerular Filtration Rate > 60, Glucose Level 93, Calcium Level 9.2 Height (Feet): 5 Height (Inches): 6.00 Weight (Pounds): 117 General Appearance: alert, confused, agitated Katherine Orozco MD Dec 13, 2018 22:49
[2018-12-14] VITALS: BP 118/68
[2018-12-14] MEDS: D5 1/2NS w/KCl 20mEq 1,000 ML IV SCH ×2 (03:00→16:20)
[2018-12-14 04:00] VITALS: BP 95/60
--- NOTE | 2018-12-14 07:40 | NUR ---
NURSE NOTES: Received patient on bed, awake. No IV access, MD aware. Patient refused AM labs and also refused to have an IV started on him. Risks versus benefits explained. Bed in low and locked position, call light in reach. No signs of respiratory distress or pain. Room board updated, will continue to monitor.
--- NOTE | 2018-12-14 07:44 | NUR ---
HAND-OFF: Report given to JULIET Read.
[2018-12-14 08:00] VITALS: BP 92/59
--- NOTE | 2018-12-14 08:35 | General Progress Note ---
Assessment/Plan Problem List: (1) Hematuria ICD Codes: R31.9 - Hematuria, unspecified SNOMED: 42474363 (2) Severe malnutrition ICD Codes: E43 - Unspecified severe protein-calorie malnutrition SNOMED: 14740709 (3) Diabetes mellitus type 2, insulin dependent ICD Codes: E11.9 - Type 2 diabetes mellitus without complications; Z79.4 - long-term (current) use of insulin SNOMED: 714049389 (4) Schizoaffective disorder ICD Codes: F25.9 - Schizoaffective disorder, unspecified SNOMED: 95952798 (5) HTN (hypertension) ICD Codes: I10 - Essential (primary) hypertension SNOMED: 63289177 Assessment/Plan POLST reviewed noted with no artificial feeding. patient refusing all care, brother wants to respect patients wishes refusing to try to eat or drink recommend hospice care No plans for PEG placement. advance diet dc planning Subjective ROS Limited/Unobtainable: No Allergies: Coded Allergies: DIVALPROEX SODIUM (Verified Allergy, Unknown, 06/01/18) PENICILLINS (Unverified Allergy, Unknown, 11/06/18) Tolerates cephalosporins Objective Last 24 Hour Vital Signs Date Time Temp Pulse Resp B/P (MAP) Pulse Ox O2 Delivery O2 Flow Rate FiO2 12/14/18 04:00 96 18 95/60 (72) 12/14/18 00:00 98.6 72 18 118/68 (85) 94 12/13/18 21:00 81 102/61 12/13/18 21:00 Room Air 12/13/18 20:00 81 16 102/61 (75) 12/13/18 16:00 97.3 97 17 87/64 (72) 96 12/13/18 12:00 97.2 68 17 110/65 (80) 100 12/13/18 11:45 68 109/66 12/13/18 09:00 Room Air Intake and Output 12/13/18 12/14/18 19:00 07:00 Intake Total 360 ml 2160 ml Output Total 450 ml 450 ml Balance -90 ml 1710 ml Intake Oral 360 ml 360 ml Other 1800 ml Output Urine Total 450 ml 450 ml # Voids 1 # Bowel Movements 1 Height (Feet): 5 Height (Inches): 6.00 Weight (Pounds): 117 General Appearance: no apparent distress EENT: normal ENT inspection Neck: supple Cardiovascular: normal rate Respiratory/Chest: decreased breath sounds Abdomen: normal bowel sounds, non tender, soft Extremities: non-tender Louis Mcneil MD Dec 14, 2018 08:35
--- NOTE | 2018-12-14 09:00 | NUR ---
NURSE NOTES: Patient refused scheduled 0900 medications. Risk versus benefits explained.
[2018-12-14] MEDS: Pantoprazole Inj IV SCH (09:51)
[2018-12-14] MEDS: levETIRAcetam 500mg/NS100ml 100 ML IVPB SCH ×2 (09:51→20:16)
[2018-12-14] MEDS: Metoprolol 25mg tab ORAL SCH ×2 (09:51→20:16)
[2018-12-14] MEDS: Heparin 5000 units/ml inj SUBQ SCH ×2 (09:52→20:16)
[2018-12-14 11:10] LABS: BASOPHILS % (AUTO) 0.4 % (0.0-2.0); EOSINOPHILS % (AUTO) 0.9 % (0.0-3.0); HEMOGLOBIN 11.2 G/DL (14.2-18.0); LYMPHOCYTES % (AUTO) 20.1 % (20.0-45.0); MEAN CORPUSCULAR VOLUME 89 FL (80-99); MONOCYTES % (AUTO) 9.4 % (1.0-10.0); NEUTROPHILS % (AUTO) 69.3 % (45.0-75.0); PLATELET COUNT 153 K/UL (150-450); RED BLOOD COUNT 3.72 M/UL (4.70-6.10); RED CELL DISTRIBUTION WIDTH 12.3 % (11.6-14.8); WHITE BLOOD COUNT 6.3 K/UL (4.8-10.8)
[2018-12-14 11:16] LABS: ANION GAP 10 mmol/L (5-15); BLOOD UREA NITROGEN 14 mg/dL (7-18); CARBON DIOXIDE 27 MMOL/L (21-32); CHLORIDE 104 MMOL/L (98-107); CREATININE 0.5 MG/DL (0.55-1.30); SODIUM 141 MMOL/L (136-145)
[2018-12-14 12:00] VITALS: BP 105/70
--- NOTE | 2018-12-14 15:27 | NUR ---
[facility] ORDINARY SEAMANPHYSICAL CHEMIST SI:HYPOKALEMIA VS: BP 92/59, P 72, T 97.6, RR 18, SpO2 94 RBC 3.72, Hgb 11.2, Hct 33.0, K 3.0, CR 0.5 IS: IVF D5KCL @ 75ML/HR K-DUR PO KEPPRA IV MED/SURG STATUS PLACEMENT PENDING
--- NOTE | 2018-12-14 17:10 | Surgery Progress Note ---
Surgery Progress Note Subjective Additional Comments no acute events. stable. comfortable. Objective Last 24 Hour Vital Signs Date Time Temp Pulse Resp B/P (MAP) Pulse Ox O2 Delivery O2 Flow Rate FiO2 12/14/18 12:00 97.6 89 20 105/70 (82) 98 12/14/18 09:00 Room Air 12/14/18 08:00 97.6 86 18 92/59 (70) 98 12/14/18 04:00 96 18 95/60 (72) 12/14/18 00:00 98.6 72 18 118/68 (85) 94 12/13/18 21:00 81 102/61 12/13/18 21:00 Room Air 12/13/18 20:00 81 16 102/61 (75) I&O Intake and Output 12/13/18 12/14/18 19:00 07:00 Intake Total 360 ml 2160 ml Output Total 450 ml 450 ml Balance -90 ml 1710 ml Intake Oral 360 ml 360 ml Other 1800 ml Output Urine Total 450 ml 450 ml # Voids 1 # Bowel Movements 1 Dressing: other Wound: other Drains: other Cardiovascular: RSR Respiratory: decreased breath sounds Abdomen: soft, non-tender, non-distended Extremities: no tenderness, no cyanosis Laboratory Tests Test 12/14/18 10:45 White Blood Count 6.3 K/UL (4.8-10.8) Red Blood Count 3.72 M/UL (4.70-6.10) L Hemoglobin 11.2 G/DL (14.2-18.0) L Hematocrit 33.0 % (42.0-52.0) L Mean Corpuscular Volume 89 FL (80-99) Mean Corpuscular Hemoglobin 30.1 PG (27.0-31.0) Mean Corpuscular Hemoglobin Concent 34.0 G/DL (32.0-36.0) Red Cell Distribution Width 12.3 % (11.6-14.8) Platelet Count 153 K/UL (150-450) Mean Platelet Volume 9.7 FL (6.5-10.1) Neutrophils (%) (Auto) 69.3 % (45.0-75.0) Lymphocytes (%) (Auto) 20.1 % (20.0-45.0) Monocytes (%) (Auto) 9.4 % (1.0-10.0) Eosinophils (%) (Auto) 0.9 % (0.0-3.0) Basophils (%) (Auto) 0.4 % (0.0-2.0) Sodium Level 141 MMOL/L (136-145) Potassium Level 3.0 MMOL/L (3.5-5.1) L Chloride Level 104 MMOL/L (98-107) Carbon Dioxide Level 27 MMOL/L (21-32) Anion Gap 10 mmol/L (5-15) Blood Urea Nitrogen 14 mg/dL (7-18) Creatinine 0.5 MG/DL (0.55-1.30) L Estimat Glomerular Filtration Rate > 60 mL/min (>60) Glucose Level 129 MG/DL (74-106) H Calcium Level 9.0 MG/DL (8.5-10.1) Plan Problems: (1) Malfunction of gastrostomy tube Assessment & Plan: Patient presents with dislodged gastric feeding tube. Prior site of tube near closed. As per gastrology no patient's prior records demonstrate no artificial feeding. PT HAS BEEN REFUSING NURSING CARE AND PO TRIALS. PER RN TELEPHONE TRIAGE, SPOKE TO PT AND PT AGREED PO TRIALS. PT SEEN AT BEDSIDE IN PM. ALERT, ATTEMPTED PO TRIALS AND ORAL CARE. PT REFUSED BY SHAKING HIS HEAD AND LOOKING AWAY EVEN GIVEN MAX ENCOURAGEMENT. RN, MICHAEL BHARDWAJ, ALSO AT BEDSIDE TO ENCOURAGEMENT PT FOR PO TRIALS. HOWEVER, PT REFUSED. UNABLE TO FULLY ASSESS PT'S SWALLOWING FUNCTION. PER PT AND FAMILY WISHES, NO ARTIFICIAL FEEDING, INCLUDING TUBE FEEDING. IF PO IS GIVEN FOR QUALITY OF LIFE COMFORT FEEDING, CONSIDER LIQUIFIED PUREED, LIKE NECTAR THICK SOUP CONSISTENCY WITH NECTAR THICK LIQUIDS WITH STRICT ASPIRATION PRECAUTIONS WITH 1TO1 FEEDING. IV fluids refusing care plans d/c planning cont with wound instructions upon dc Shiv Horvath Dec 14, 2018 17:10
--- NOTE | 2018-12-14 19:31 | NUR ---
HAND-OFF: Report given to JULIET Katz.
--- NOTE | 2018-12-14 19:36 | Internal Med Progress Note ---
Subjective Date of Service: Dec 14, 2018 Physician Name Manjinder Marley Attending Physician Ean Joyce MD Current Medications Medications (Trade) Dose Ordered Sig/Cristofer Route PRN Reason Start Time Stop Time Status Last Admin Dose Admin Acetaminophen (Tylenol) 650 mg Q4H PRN ORAL fever 12/03/18 21:45 01/02/19 21:44 Al Hydroxide/Mg Hydroxide (Mylanta II) 30 ml Q6H PRN ORAL dyspepsia 12/03/18 21:45 01/02/19 21:44 Dextrose (Dextrose 50%) 25 ml Q30M PRN IV Hypoglycemia 12/03/18 21:45 01/02/19 21:44 Dextrose (Dextrose 50%) 50 ml Q30M PRN IV Hypoglycemia 12/03/18 21:45 01/02/19 21:44 Dextrose/ Electrolytes 1,000 ml @ 75 mls/hr [id number] IV 12/10/18 19:00 01/09/19 18:59 Diphenhydramine HCl (Benadryl) 25 mg Q6H PRN ORAL Itching/Pruritis 12/03/18 21:45 01/02/19 21:44 Heparin Sodium (Porcine) (Heparin 5000 units/ml) 5,000 units EVERY 12 HOURS SUBQ 12/04/18 09:00 01/03/19 08:59 Levetiracetam 100 ml @ 400 mls/hr Q12HR IVPB 12/04/18 21:00 01/03/19 20:59 12/04/18 20:31 Lorazepam (Ativan 2mg/ml 1ml) 1 mg Q4H PRN IM agitation 12/08/18 23:30 12/15/18 23:29 12/09/18 01:39 Metoclopramide HCl (Reglan) 10 mg Q4H PRN IVP servere nausea 12/03/18 21:45 01/02/19 21:44 Metoprolol Tartrate (Lopressor) 25 mg Q12HR ORAL 12/04/18 21:00 01/03/19 20:59 Nitroglycerin (Ntg) 0.4 mg Q5M X 3 DOSES PRN SL Prn Chest Pain 12/03/18 21:45 01/02/19 21:44 Ondansetron HCl (Zofran) 4 mg Q6H PRN IVP Nausea & Vomiting 12/03/18 21:45 01/02/19 21:44 Pantoprazole (Protonix) 40 mg DAILY IV 12/04/18 09:00 01/03/19 08:59 12/04/18 09:17 Polyethylene Glycol (Miralax) 17 gm HSPRN PRN ORAL Constipation 12/03/18 21:45 01/02/19 21:44 Promethazine HCl 25 mg/Sodium Chloride 56 ml @ 110 mls/hr Q6H PRN IV Refractory N/V 12/03/18 21:45 01/02/19 21:44 Allergies: Coded Allergies: DIVALPROEX SODIUM (Verified Allergy, Unknown, 06/01/18) PENICILLINS (Unverified Allergy, Unknown, 11/06/18) Tolerates cephalosporins ROS Limited/Unobtainable: Yes Subjective 58 YO M admitted with G-tube malunction. Cover for Int med-Dr Joyce. Refusing meds Objective Last Vital Signs Date Time Temp Pulse Resp B/P (MAP) Pulse Ox O2 Delivery O2 Flow Rate FiO2 12/14/18 12:00 97.6 89 20 105/70 (82) 98 12/14/18 09:00 Room Air Laboratory Tests Test 12/14/18 10:45 White Blood Count 6.3 K/UL (4.8-10.8) Red Blood Count 3.72 M/UL (4.70-6.10) L Hemoglobin 11.2 G/DL (14.2-18.0) L Hematocrit 33.0 % (42.0-52.0) L Mean Corpuscular Volume 89 FL (80-99) Mean Corpuscular Hemoglobin 30.1 PG (27.0-31.0) Mean Corpuscular Hemoglobin Concent 34.0 G/DL (32.0-36.0) Red Cell Distribution Width 12.3 % (11.6-14.8) Platelet Count 153 K/UL (150-450) Mean Platelet Volume 9.7 FL (6.5-10.1) Neutrophils (%) (Auto) 69.3 % (45.0-75.0) Lymphocytes (%) (Auto) 20.1 % (20.0-45.0) Monocytes (%) (Auto) 9.4 % (1.0-10.0) Eosinophils (%) (Auto) 0.9 % (0.0-3.0) Basophils (%) (Auto) 0.4 % (0.0-2.0) Sodium Level 141 MMOL/L (136-145) Potassium Level 3.0 MMOL/L (3.5-5.1) L Chloride Level 104 MMOL/L (98-107) Carbon Dioxide Level 27 MMOL/L (21-32) Anion Gap 10 mmol/L (5-15) Blood Urea Nitrogen 14 mg/dL (7-18) Creatinine 0.5 MG/DL (0.55-1.30) L Estimat Glomerular Filtration Rate > 60 mL/min (>60) Glucose Level 129 MG/DL (74-106) H Calcium Level 9.0 MG/DL (8.5-10.1) Intake and Output 12/13/18 12/14/18 19:00 07:00 Intake Total 360 ml 2160 ml Output Total 450 ml 450 ml Balance -90 ml 1710 ml Intake Oral 360 ml 360 ml Other 1800 ml Output Urine Total 450 ml 450 ml # Voids 1 # Bowel Movements 1 Objective Objective GENERAL: The patient is awake, opens his eyes, cachectic with malnutrition, less agitated, and combative. HEAD AND NECK: Pupils equal and reactive to light. Anicteric. NECK: Supple. No JVD. LUNGS: poor air entry. No wheeze or rales. Poor inspiratory effort. HEART: S1 and S2. Distant heart sounds. No murmurs or gallops. ABDOMEN: Soft, not distended not tender, old G-tube site closed., EXTREMITIES: No cyanosis or clubbing. left AKA with intact stump, right heel ulceration with muscle atrophy in bilateral lower extremities. NEUROLOGIC: Cranial nerves II through XII grossly intact. The patient is moving all the extremities spontaneously. Assessment/Plan Assessment/Plan Assessment/Plan Assessment/Plan Assessment/Plan ASSESSMENT: 1. G-tube malfunctioning with dislodge. 2. Dysphagia, status post feeding tube placement. 3. Hypertension. 4. Diabetes, type 2. 5. Alzheimer dementia. 6. History of CVA. 7. ATN / acute kidney injury. 8. Acute toxic metabolic encephalopathy. 9. Severe protein-calorie malnutrition with cachexia. 10. Status post left BKA. 11. Hypokalemia-replace K+ PLAN: 1. In medical floor. 2. We will follow up with Dr. Sanchez from Pulmonary/Critical Care, from General Surgery, and Dr. Mcneil from Gastroenterology. 3. Code status is DNR/DNI. 4. DVT prophylaxis, heparin subcutaneous. 5. no plan for PEG placement soon-see GI note. 6. Monitor laboratory. 7. Defer PEG, follow up bioethics and ST evaluation. 8. Discharge planning 9. Continue D5 1/2 NS + 20 meq kcl/L 10. refusing meds Manjinder Marley MD Dec 14, 2018 19:36
--- NOTE | 2018-12-14 19:37 | NUR ---
NURSE NOTES: Received patient in bed, awake. No IV access. No s/s distress or pain noted. Vargas in place. Bed in lowest position, call light within reach, bed alarm on. Will continue to monitor.
--- NOTE | 2018-12-14 20:40 | NUR ---
NURSE NOTES: Patient refused vital signs, accu check, medications. Nurse explained risks and benefits, patient still refused shaking his head and moving his arms away from nurse. Patient also refused to answer nurse's questions and refused for nurse to assess him.
--- NOTE | 2018-12-14 23:37 | General Progress Note ---
Assessment/Plan Problem List: (1) Schizoaffective disorder ICD Codes: F25.9 - Schizoaffective disorder, unspecified SNOMED: 16048758 Assessment/Plan Haldol dec 25mg IM the pt lacks capacity to make decisions Subjective Neurologic/Psychiatric: Reports: anxiety, depressed, emotional problems Allergies: Coded Allergies: DIVALPROEX SODIUM (Verified Allergy, Unknown, 06/01/18) PENICILLINS (Unverified Allergy, Unknown, 11/06/18) Tolerates cephalosporins Subjective the pt is disorganized and confused the pt has waxing and waning Objective Last 24 Hour Vital Signs Date Time Temp Pulse Resp B/P (MAP) Pulse Ox O2 Delivery O2 Flow Rate FiO2 12/14/18 23:35 Room Air 12/14/18 12:00 97.6 89 20 105/70 (82) 98 12/14/18 09:00 Room Air 12/14/18 08:00 97.6 86 18 92/59 (70) 98 12/14/18 04:00 96 18 95/60 (72) 12/14/18 00:00 98.6 72 18 118/68 (85) 94 Intake and Output 12/13/18 12/14/18 19:00 07:00 Intake Total 360 ml 2160 ml Output Total 450 ml 450 ml Balance -90 ml 1710 ml Intake Oral 360 ml 360 ml Other 1800 ml Output Urine Total 450 ml 450 ml # Voids 1 # Bowel Movements 1 Laboratory Tests 12/14/18 10:45: White Blood Count 6.3, Red Blood Count 3.72L, Hemoglobin 11.2L, Hematocrit 33.0L , Mean Corpuscular Volume 89, Mean Corpuscular Hemoglobin 30.1, Mean Corpuscular Hemoglobin Concent 34.0, Red Cell Distribution Width 12.3, Platelet Count 153, Mean Platelet Volume 9.7, Neutrophils (%) (Auto) 69.3, Lymphocytes (% ) (Auto) 20.1, Monocytes (%) (Auto) 9.4, Eosinophils (%) (Auto) 0.9, Basophils ( %) (Auto) 0.4, Sodium Level 141, Potassium Level 3.0L, Chloride Level 104, Carbon Dioxide Level 27, Anion Gap 10, Blood Urea Nitrogen 14, Creatinine 0.5L, Estimat Glomerular Filtration Rate > 60, Glucose Level 129H, Calcium Level 9.0 Height (Feet): 5 Height (Inches): 6.00 Weight (Pounds): 117 General Appearance: alert, cachetic Katherine Orozco MD Dec 14, 2018 23:37
[2018-12-15] MEDS: D5 1/2NS w/KCl 20mEq 1,000 ML IV SCH ×2 (04:19→17:58)
--- NOTE | 2018-12-15 06:35 | NUR ---
NURSE NOTES: PATIENT CLEANED WITH PATIENT RESISTING THROUGHOUT PROCEDURE. PATIENT REMAINS UNCOOPERATIVE AND REFUSING CARE.
--- NOTE | 2018-12-15 07:23 | NUR ---
HAND-OFF: Report given to FRANK LUNA LVN.
--- NOTE | 2018-12-15 08:08 | NUR ---
NURSE NOTES: Received patient in bed, awake. flat affect. No IV access. No acute resp distress or pain noted. Vargas inplace and draining well. HOB elevated for aspiration precaution. Bed in lowest position, siderails are up x3 and padded for seizure precautions. call light within reach, bed alarm on. Will continue to monitor.
--- NOTE | 2018-12-15 08:32 | General Progress Note ---
Assessment/Plan Problem List: (1) Hematuria ICD Codes: R31.9 - Hematuria, unspecified SNOMED: 94515142 (2) Severe malnutrition ICD Codes: E43 - Unspecified severe protein-calorie malnutrition SNOMED: 38686668 (3) Diabetes mellitus type 2, insulin dependent ICD Codes: E11.9 - Type 2 diabetes mellitus without complications; Z79.4 - prison (current) use of insulin SNOMED: 447944132 (4) Schizoaffective disorder ICD Codes: F25.9 - Schizoaffective disorder, unspecified SNOMED: 58724925 (5) HTN (hypertension) ICD Codes: I10 - Essential (primary) hypertension SNOMED: 50865147 Assessment/Plan POLST reviewed noted with no artificial feeding. patient refusing all care, brother wants to respect patients wishes refusing to try to eat or drink recommend hospice care No plans for PEG placement. advance diet dc planning Subjective ROS Limited/Unobtainable: No Allergies: Coded Allergies: DIVALPROEX SODIUM (Verified Allergy, Unknown, 06/01/18) PENICILLINS (Unverified Allergy, Unknown, 11/06/18) Tolerates cephalosporins Objective Last 24 Hour Vital Signs Date Time Temp Pulse Resp B/P (MAP) Pulse Ox O2 Delivery O2 Flow Rate FiO2 12/14/18 23:35 Room Air 12/14/18 12:00 97.6 89 20 105/70 (82) 98 12/14/18 09:00 Room Air Intake and Output 12/14/18 12/15/18 19:00 07:00 Intake Total 900 ml 0 ml Output Total 950 ml 250 ml Balance -50 ml -250 ml Intake Oral 900 ml 0 ml Output Urine Total 950 ml 250 ml # Bowel Movements 1 Laboratory Tests 12/14/18 10:45: White Blood Count 6.3, Red Blood Count 3.72L, Hemoglobin 11.2L, Hematocrit 33.0L , Mean Corpuscular Volume 89, Mean Corpuscular Hemoglobin 30.1, Mean Corpuscular Hemoglobin Concent 34.0, Red Cell Distribution Width 12.3, Platelet Count 153, Mean Platelet Volume 9.7, Neutrophils (%) (Auto) 69.3, Lymphocytes (% ) (Auto) 20.1, Monocytes (%) (Auto) 9.4, Eosinophils (%) (Auto) 0.9, Basophils ( %) (Auto) 0.4, Sodium Level 141, Potassium Level 3.0L, Chloride Level 104, Carbon Dioxide Level 27, Anion Gap 10, Blood Urea Nitrogen 14, Creatinine 0.5L, Estimat Glomerular Filtration Rate > 60, Glucose Level 129H, Calcium Level 9.0 Height (Feet): 5 Height (Inches): 6.00 Weight (Pounds): 117 General Appearance: no apparent distress EENT: normal ENT inspection Neck: supple Cardiovascular: normal rate Respiratory/Chest: lungs clear Abdomen: normal bowel sounds, non tender, soft Extremities: non-tender Louis Mcneil MD Dec 15, 2018 08:32
[2018-12-15] MEDS: Pantoprazole Inj IV SCH (09:00)
[2018-12-15] MEDS: levETIRAcetam 500mg/NS100ml 100 ML IVPB SCH (09:00)
[2018-12-15] MEDS: Metoprolol 25mg tab ORAL SCH ×2 (09:00→21:00)
[2018-12-15] MEDS: Heparin 5000 units/ml inj SUBQ SCH ×2 (09:00→21:00)
--- NOTE | 2018-12-15 10:30 | NUR ---
NURSE NOTES: patient appeared noncompliant with medication regimen. wound care and ADL's. patient appeared impulsive. had explained the importance and indications of hospitalization and remained noncompliant. Will cont to monitor.
--- NOTE | 2018-12-15 10:51 | NUR ---
NURSE NOTES: Made Dr. Joyce aware regarding patient being noncompliant and constantly refusing IV reinsertion. Had history of pulling out IV access. consulted Dr Joyce to possibly convert keppra IVPB and protonix IVP to po. awaiting for response. will cont to monitor.
[2018-12-15 12:39] VITALS: BP 103/61
--- NOTE | 2018-12-15 12:59 | NUR ---
CASE MANAGEMENT: REVIEW SI: MALFUNCTIONING / DISLODGED G-TUBE . MALNUTRITION PATIENT REFUSE NEW G-TUBE PLACEMENT T 97.2 HR 70 RR 18 BP 103/61 SAT 99% ROOM AIR K+ 3.0 IS: D5 1/2 NS w/KCl 20mEq @75ML/HR PROTONIX PO QD MECH SOFT PO DIET 1:1 FEED/ASSIST MED/SURG STATUS DCP: PATIENT IS FROM [facility]
[2018-12-15] MEDS ORDERED: levETIRAcetam 500mg/5ml Liquid NG SCH (13:00)
--- NOTE | 2018-12-15 13:47 | Pulmonology Progress Note ---
Assessment/Plan Problems: (1) Severe malnutrition (2) Malfunction of gastrostomy tube (3) Diabetes mellitus type 2, insulin dependent (4) Schizoaffective disorder (5) History of left above knee amputation Assessment/Plan asking for turkey sandwich pt and his family refusing PEG placement will send him back to his long term will start on liquid seizure medication, Keppra and prn IM ativan All medications and treatment were reviewed., Subjective ROS Limited/Unobtainable: No Constitutional: Reports: no symptoms HEENT: Repors: no symptoms Allergies: Coded Allergies: DIVALPROEX SODIUM (Verified Allergy, Unknown, 06/01/18) PENICILLINS (Unverified Allergy, Unknown, 11/06/18) Tolerates cephalosporins Objective Last 24 Hour Vital Signs Date Time Temp Pulse Resp B/P (MAP) Pulse Ox O2 Delivery O2 Flow Rate FiO2 12/15/18 12:39 97.2 70 18 103/61 (75) 99 12/15/18 09:00 Room Air 12/14/18 23:35 Room Air Intake and Output 12/14/18 12/15/18 18:59 06:59 Intake Total 900 ml 0 ml Output Total 950 ml 250 ml Balance -50 ml -250 ml Intake Oral 900 ml 0 ml Output Urine Total 950 ml 250 ml # Bowel Movements 1 Objective General Appearance: WD/WN Respiratory/Chest: chest wall non-tender, lungs clear Cardiovascular: normal peripheral pulses, regular rhythm Abdomen: normal bowel sounds Genitourinary: normal external genitalia Skin: no rash Current Medications Medications (Trade) Dose Ordered Sig/Cristofer Route PRN Reason Start Time Stop Time Status Last Admin Dose Admin Acetaminophen (Tylenol) 650 mg Q4H PRN ORAL fever 12/03/18 21:45 01/02/19 21:44 Al Hydroxide/Mg Hydroxide (Mylanta II) 30 ml Q6H PRN ORAL dyspepsia 12/03/18 21:45 01/02/19 21:44 Dextrose (Dextrose 50%) 25 ml Q30M PRN IV Hypoglycemia 12/03/18 21:45 01/02/19 21:44 Dextrose (Dextrose 50%) 50 ml Q30M PRN IV Hypoglycemia 12/03/18 21:45 01/02/19 21:44 Dextrose/ Electrolytes 1,000 ml @ 75 mls/hr [id number] IV 12/10/18 19:00 01/09/19 18:59 Diphenhydramine HCl (Benadryl) 25 mg Q6H PRN ORAL Itching/Pruritis 12/03/18 21:45 01/02/19 21:44 Heparin Sodium (Porcine) (Heparin 5000 units/ml) 5,000 units EVERY 12 HOURS SUBQ 12/04/18 09:00 01/03/19 08:59 Levetiracetam (Keppra) 500 mg ONCE NG 12/15/18 13:00 12/15/18 14:00 Levetiracetam (Keppra) 500 mg Q12HR NG 12/15/18 21:00 01/14/19 20:59 Lorazepam (Ativan 2mg/ml 1ml) 1 mg Q4H PRN IM agitation 12/08/18 23:30 12/15/18 23:29 12/09/18 01:39 Metoclopramide HCl (Reglan) 10 mg Q4H PRN IVP servere nausea 12/03/18 21:45 01/02/19 21:44 Metoprolol Tartrate (Lopressor) 25 mg Q12HR ORAL 12/04/18 21:00 01/03/19 20:59 Nitroglycerin (Ntg) 0.4 mg Q5M X 3 DOSES PRN SL Prn Chest Pain 12/03/18 21:45 01/02/19 21:44 Ondansetron HCl (Zofran) 4 mg Q6H PRN IVP Nausea & Vomiting 12/03/18 21:45 01/02/19 21:44 Pantoprazole (Protonix) 40 mg DAILY ORAL 12/16/18 09:00 01/15/19 08:59 Pantoprazole (Protonix) 40 mg ONCE ORAL 12/15/18 13:00 12/15/18 14:00 Polyethylene Glycol (Miralax) 17 gm HSPRN PRN ORAL Constipation 12/03/18 21:45 01/02/19 21:44 Promethazine HCl 25 mg/Sodium Chloride 56 ml @ 110 mls/hr Q6H PRN IV Refractory N/V 12/03/18 21:45 01/02/19 21:44 Dony Sanchez MD Dec 15, 2018 13:47
--- NOTE | 2018-12-15 16:13 | Internal Med Progress Note ---
Subjective Date of Service: Dec 15, 2018 Physician Name Manjinder Marley Attending Physician Ean Joyce MD Current Medications Medications (Trade) Dose Ordered Sig/Cristofer Route PRN Reason Start Time Stop Time Status Last Admin Dose Admin Acetaminophen (Tylenol) 650 mg Q4H PRN ORAL fever 12/03/18 21:45 01/02/19 21:44 Al Hydroxide/Mg Hydroxide (Mylanta II) 30 ml Q6H PRN ORAL dyspepsia 12/03/18 21:45 01/02/19 21:44 Dextrose (Dextrose 50%) 25 ml Q30M PRN IV Hypoglycemia 12/03/18 21:45 01/02/19 21:44 Dextrose (Dextrose 50%) 50 ml Q30M PRN IV Hypoglycemia 12/03/18 21:45 01/02/19 21:44 Dextrose/ Electrolytes 1,000 ml @ 75 mls/hr [id number] IV 12/10/18 19:00 01/09/19 18:59 Diphenhydramine HCl (Benadryl) 25 mg Q6H PRN ORAL Itching/Pruritis 12/03/18 21:45 01/02/19 21:44 Heparin Sodium (Porcine) (Heparin 5000 units/ml) 5,000 units EVERY 12 HOURS SUBQ 12/04/18 09:00 01/03/19 08:59 Levetiracetam (Keppra) 500 mg Q12HR NG 12/15/18 21:00 01/14/19 20:59 Lorazepam (Ativan 2mg/ml 1ml) 1 mg Q4H PRN IM agitation 12/08/18 23:30 12/15/18 23:29 12/09/18 01:39 Metoclopramide HCl (Reglan) 10 mg Q4H PRN IVP servere nausea 12/03/18 21:45 01/02/19 21:44 Metoprolol Tartrate (Lopressor) 25 mg Q12HR ORAL 12/04/18 21:00 01/03/19 20:59 Nitroglycerin (Ntg) 0.4 mg Q5M X 3 DOSES PRN SL Prn Chest Pain 12/03/18 21:45 01/02/19 21:44 Ondansetron HCl (Zofran) 4 mg Q6H PRN IVP Nausea & Vomiting 12/03/18 21:45 01/02/19 21:44 Pantoprazole (Protonix) 40 mg DAILY ORAL 12/16/18 09:00 01/15/19 08:59 Polyethylene Glycol (Miralax) 17 gm HSPRN PRN ORAL Constipation 12/03/18 21:45 01/02/19 21:44 Promethazine HCl 25 mg/Sodium Chloride 56 ml @ 110 mls/hr Q6H PRN IV Refractory N/V 12/03/18 21:45 01/02/19 21:44 Allergies: Coded Allergies: DIVALPROEX SODIUM (Verified Allergy, Unknown, 06/01/18) PENICILLINS (Unverified Allergy, Unknown, 11/06/18) Tolerates cephalosporins ROS Limited/Unobtainable: No Constitutional: Reports: no symptoms HEENT: Reports: no symptoms Cardiovascular: Reports: no symptoms Respiratory: Reports: no symptoms Gastrointestinal/Abdominal: Reports: no symptoms Genitourinary: Reports: no symptoms Neurologic/Psychiatric: Reports: no symptoms Subjective 58 YO M admitted with G-tube malunction. Cover for Int med-Dr Joyce. Refusing meds Objective Last Vital Signs Date Time Temp Pulse Resp B/P (MAP) Pulse Ox O2 Delivery O2 Flow Rate FiO2 12/15/18 12:39 97.2 70 18 103/61 (75) 99 12/15/18 09:00 Room Air Intake and Output 12/14/18 12/15/18 18:59 06:59 Intake Total 900 ml 0 ml Output Total 950 ml 250 ml Balance -50 ml -250 ml Intake Oral 900 ml 0 ml Output Urine Total 950 ml 250 ml # Bowel Movements 1 Objective Objective GENERAL: The patient is awake, opens his eyes, cachectic with malnutrition, less agitated, and combative. HEAD AND NECK: Pupils equal and reactive to light. Anicteric. NECK: Supple. No JVD. LUNGS: poor air entry. No wheeze or rales. Poor inspiratory effort. HEART: S1 and S2. Distant heart sounds. No murmurs or gallops. ABDOMEN: Soft, not distended not tender, old G-tube site closed., EXTREMITIES: No cyanosis or clubbing. left AKA with intact stump, right heel ulceration with muscle atrophy in bilateral lower extremities. NEUROLOGIC: Cranial nerves II through XII grossly intact. The patient is moving all the extremities spontaneously. Assessment/Plan Assessment/Plan Assessment/Plan Assessment/Plan Assessment/Plan ASSESSMENT: 1. G-tube malfunctioning with dislodge. 2. Dysphagia, status post feeding tube placement. 3. Hypertension. 4. Diabetes, type 2. 5. Alzheimer dementia. 6. History of CVA. 7. ATN / acute kidney injury. 8. Acute toxic metabolic encephalopathy. 9. Severe protein-calorie malnutrition with cachexia. 10. Status post left BKA. 11. Hypokalemia-replace K+ PLAN: 1. In medical floor. 2. We will follow up with Dr. Sanchez from Pulmonary/Critical Care, from General Surgery, and Dr. Mcneil from Gastroenterology. 3. Code status is DNR/DNI. 4. DVT prophylaxis, heparin subcutaneous. 5. no plan for PEG placement soon-see GI note. 6. Monitor laboratory. 7. Defer PEG, follow up bioethics and ST evaluation. 8. Discharge planning 9. Continue D5 1/2 NS + 20 meq kcl/L 10. refusing meds Manjinder Marley MD Dec 15, 2018 16:13
--- NOTE | 2018-12-15 16:55 | Surgery Progress Note ---
Surgery Progress Note Subjective Symptoms: other Additional Comments unchanged. no acute events. Objective Last 24 Hour Vital Signs Date Time Temp Pulse Resp B/P (MAP) Pulse Ox O2 Delivery O2 Flow Rate FiO2 12/15/18 12:39 97.2 70 18 103/61 (75) 99 12/15/18 09:00 Room Air 12/14/18 23:35 Room Air I&O Intake and Output 12/14/18 12/15/18 18:59 06:59 Intake Total 900 ml 0 ml Output Total 950 ml 250 ml Balance -50 ml -250 ml Intake Oral 900 ml 0 ml Output Urine Total 950 ml 250 ml # Bowel Movements 1 Dressing: other Wound: other Drains: other Cardiovascular: RSR Respiratory: decreased breath sounds Abdomen: soft, present bowel sounds, non-distended Extremities: other Plan Problems: (1) Malfunction of gastrostomy tube Assessment & Plan: Patient presents with dislodged gastric feeding tube. Prior site of tube near closed. As per gastrology no patient's prior records demonstrate no artificial feeding. PT HAS BEEN REFUSING NURSING CARE AND PO TRIALS. PER POST TRONIC MACHINE OPERATOR, SPOKE TO PT AND PT AGREED PO TRIALS. PT SEEN AT BEDSIDE IN PM. ALERT, ATTEMPTED PO TRIALS AND ORAL CARE. PT REFUSED BY SHAKING HIS HEAD AND LOOKING AWAY EVEN GIVEN MAX ENCOURAGEMENT. RN, MICHAEL BHARDWAJ, ALSO AT BEDSIDE TO ENCOURAGEMENT PT FOR PO TRIALS. HOWEVER, PT REFUSED. UNABLE TO FULLY ASSESS PT'S SWALLOWING FUNCTION. PER PT AND FAMILY WISHES, NO ARTIFICIAL FEEDING, INCLUDING TUBE FEEDING. IF PO IS GIVEN FOR QUALITY OF LIFE COMFORT FEEDING, CONSIDER LIQUIFIED PUREED, LIKE NECTAR THICK SOUP CONSISTENCY WITH NECTAR THICK LIQUIDS WITH STRICT ASPIRATION PRECAUTIONS WITH 1TO1 FEEDING. IV fluids refusing care plans d/c planning cont with wound instructions upon dc Shiv Horvath Dec 15, 2018 16:55
--- NOTE | 2018-12-15 16:59 | NUR ---
NURSE NOTES: PATIENT STARTED TO BE COMPULSIVE AND THREW STUFF INCLUDING WATER PITCHER ON THE FLOOR. DOES NOT WANT TO COMPLY WITH BEDSIDE CARE. DR MCCORMICK MADE AWARE OF THE BEHAVIOR OF THE PATIENT. WILL CONT TO MONITOR.
--- NOTE | 2018-12-15 19:13 | NUR ---
HAND-OFF: Report given to LIAT.
[2018-12-15 20:00] VITALS: BP 113/61
[2018-12-15] MEDS: levETIRAcetam 500mg/5ml Liquid NG SCH (21:00)
--- NOTE | 2018-12-15 22:36 | General Progress Note ---
Assessment/Plan Problem List: (1) Schizoaffective disorder ICD Codes: F25.9 - Schizoaffective disorder, unspecified SNOMED: 49995110 Assessment/Plan Haldol dec 25mg IM the pt lacks capacity to make decisions Subjective Neurologic/Psychiatric: Reports: anxiety, depressed Allergies: Coded Allergies: DIVALPROEX SODIUM (Verified Allergy, Unknown, 06/01/18) PENICILLINS (Unverified Allergy, Unknown, 11/06/18) Tolerates cephalosporins Subjective the pt is disorganized and confused the pt has waxing and waning Objective Last 24 Hour Vital Signs Date Time Temp Pulse Resp B/P (MAP) Pulse Ox O2 Delivery O2 Flow Rate FiO2 12/15/18 21:00 73 113/61 12/15/18 20:00 97.8 73 20 113/61 (78) 100 12/15/18 12:39 97.2 70 18 103/61 (75) 99 12/15/18 09:00 Room Air 12/14/18 23:35 Room Air Intake and Output 12/14/18 12/15/18 19:00 07:00 Intake Total 900 ml 0 ml Output Total 950 ml 250 ml Balance -50 ml -250 ml Intake Oral 900 ml 0 ml Output Urine Total 950 ml 250 ml # Bowel Movements 1 Height (Feet): 5 Height (Inches): 6.00 Weight (Pounds): 117 Katherine Orozco MD Dec 15, 2018 22:36
[2018-12-16] VITALS: BP 107/62
[2018-12-16 04:00] VITALS: BP 155/95
--- NOTE | 2018-12-16 07:25 | NUR ---
HAND-OFF: Report given to FRANK VALDES.
--- NOTE | 2018-12-16 08:02 | General Progress Note ---
Assessment/Plan Problem List: (1) Hematuria ICD Codes: R31.9 - Hematuria, unspecified SNOMED: 70133976 (2) Severe malnutrition ICD Codes: E43 - Unspecified severe protein-calorie malnutrition SNOMED: 09637378 (3) Diabetes mellitus type 2, insulin dependent ICD Codes: E11.9 - Type 2 diabetes mellitus without complications; Z79.4 - [facility] (current) use of insulin SNOMED: 622367221 (4) Schizoaffective disorder ICD Codes: F25.9 - Schizoaffective disorder, unspecified SNOMED: 47123214 (5) HTN (hypertension) ICD Codes: I10 - Essential (primary) hypertension SNOMED: 16180657 Assessment/Plan POLST reviewed noted with no artificial feeding. patient refusing all care, brother wants to respect patients wishes refusing to try to eat or drink recommend hospice care No plans for PEG placement. advance diet dc planning Subjective ROS Limited/Unobtainable: No Allergies: Coded Allergies: DIVALPROEX SODIUM (Verified Allergy, Unknown, 06/01/18) PENICILLINS (Unverified Allergy, Unknown, 11/06/18) Tolerates cephalosporins Objective Last 24 Hour Vital Signs Date Time Temp Pulse Resp B/P (MAP) Pulse Ox O2 Delivery O2 Flow Rate FiO2 12/16/18 04:00 97.6 84 20 155/95 (115) 96 12/16/18 00:00 96.5 71 20 107/62 (77) 98 12/15/18 21:00 73 113/61 12/15/18 21:00 Room Air 12/15/18 20:00 97.8 73 20 113/61 (78) 100 12/15/18 12:39 97.2 70 18 103/61 (75) 99 12/15/18 09:00 Room Air Intake and Output 12/15/18 12/16/18 19:00 07:00 Intake Total 0 ml Output Total 500 ml 150 ml Balance -500 ml -150 ml Intake Oral 0 ml Output Urine Total 500 ml 150 ml # Bowel Movements 1 1 Height (Feet): 5 Height (Inches): 6.00 Weight (Pounds): 117 General Appearance: alert EENT: normal ENT inspection Neck: supple Cardiovascular: normal rate Respiratory/Chest: lungs clear Abdomen: normal bowel sounds, non tender, soft Extremities: non-tender Vosoghi,Louis MD Dec 16, 2018 08:02
[2018-12-16] MEDS: D5 1/2NS w/KCl 20mEq 1,000 ML IV SCH ×2 (08:20→21:40)
--- NOTE | 2018-12-16 08:30 | NUR ---
NURSE NOTES: Received patient in bed, awake. combative and disrobbed. Found hosp gown, pillows and wound drsg gauze on the floor. No IV access. No acute resp distress or pain noted. Offered water and food and patient constantly nodding and refused to drink or eat. refused for Vital signs to be taken. Vargas inplace and draining well. HOB elevated for aspiration precaution. Bed in lowest position, siderails are up x3 and padded for seizure precautions. call light within reach, bed alarm on. Will continue to monitor.
[2018-12-16] MEDS: levETIRAcetam 500mg/5ml Liquid NG SCH ×2 (09:00→20:44)
[2018-12-16] MEDS: Metoprolol 25mg tab ORAL SCH ×2 (09:00→20:44)
[2018-12-16] MEDS: Heparin 5000 units/ml inj SUBQ SCH ×2 (09:00→20:43)
--- NOTE | 2018-12-16 12:00 | NUR ---
NURSE NOTES: patient continues to be noncompliant with all areas of cares such as , medication regimen, food intake and bld sugar monitoring, bedbath. appeared compulsive and combative. Explained the indications and importance of getting better and remained refused. kept removing hosp gown and tossing it to the floor though f/c is inplace and intact. will cont to moniitor.
--- NOTE | 2018-12-16 12:55 | Pulmonology Progress Note ---
Assessment/Plan Problems: (1) Severe malnutrition (2) Malfunction of gastrostomy tube (3) Diabetes mellitus type 2, insulin dependent (4) Schizoaffective disorder (5) History of left above knee amputation Assessment/Plan asking for turkey sandwich pt and his family refusing PEG placement will send him back to his long term will start on liquid seizure medication, Keppra and prn IM ativan All medications and treatment were reviewed., Subjective ROS Limited/Unobtainable: No Constitutional: Reports: no symptoms HEENT: Repors: no symptoms Respiratory: Reports: no symptoms Allergies: Coded Allergies: DIVALPROEX SODIUM (Verified Allergy, Unknown, 06/01/18) PENICILLINS (Unverified Allergy, Unknown, 11/06/18) Tolerates cephalosporins Objective Last 24 Hour Vital Signs Date Time Temp Pulse Resp B/P (MAP) Pulse Ox O2 Delivery O2 Flow Rate FiO2 12/16/18 09:00 Room Air 12/16/18 04:00 97.6 84 20 155/95 (115) 96 12/16/18 00:00 96.5 71 20 107/62 (77) 98 12/15/18 21:00 73 113/61 12/15/18 21:00 Room Air 12/15/18 20:00 97.8 73 20 113/61 (78) 100 Intake and Output 12/15/18 12/16/18 19:00 07:00 Intake Total 0 ml Output Total 500 ml 150 ml Balance -500 ml -150 ml Intake Oral 0 ml Output Urine Total 500 ml 150 ml # Bowel Movements 1 1 Objective General Appearance: WD/WN Respiratory/Chest: chest wall non-tender, lungs clear Cardiovascular: normal peripheral pulses, regular rhythm Abdomen: normal bowel sounds Genitourinary: normal external genitalia Skin: no rash Current Medications Medications (Trade) Dose Ordered Sig/Cristofer Route PRN Reason Start Time Stop Time Status Last Admin Dose Admin Acetaminophen (Tylenol) 650 mg Q4H PRN ORAL fever 12/03/18 21:45 01/02/19 21:44 Al Hydroxide/Mg Hydroxide (Mylanta II) 30 ml Q6H PRN ORAL dyspepsia 12/03/18 21:45 01/02/19 21:44 Dextrose (Dextrose 50%) 25 ml Q30M PRN IV Hypoglycemia 12/03/18 21:45 01/02/19 21:44 Dextrose (Dextrose 50%) 50 ml Q30M PRN IV Hypoglycemia 12/03/18 21:45 01/02/19 21:44 Dextrose/ Electrolytes 1,000 ml @ 75 mls/hr [id number] IV 12/10/18 19:00 01/09/19 18:59 Diphenhydramine HCl (Benadryl) 25 mg Q6H PRN ORAL Itching/Pruritis 12/03/18 21:45 01/02/19 21:44 Heparin Sodium (Porcine) (Heparin 5000 units/ml) 5,000 units EVERY 12 HOURS SUBQ 12/04/18 09:00 01/03/19 08:59 Levetiracetam (Keppra) 500 mg Q12HR NG 12/15/18 21:00 01/14/19 20:59 Metoclopramide HCl (Reglan) 10 mg Q4H PRN IVP servere nausea 12/03/18 21:45 01/02/19 21:44 Metoprolol Tartrate (Lopressor) 25 mg Q12HR ORAL 12/04/18 21:00 01/03/19 20:59 Nitroglycerin (Ntg) 0.4 mg Q5M X 3 DOSES PRN SL Prn Chest Pain 12/03/18 21:45 01/02/19 21:44 Ondansetron HCl (Zofran) 4 mg Q6H PRN IVP Nausea & Vomiting 12/03/18 21:45 01/02/19 21:44 Pantoprazole (Protonix) 40 mg DAILY ORAL 12/16/18 09:00 01/15/19 08:59 Polyethylene Glycol (Miralax) 17 gm HSPRN PRN ORAL Constipation 12/03/18 21:45 01/02/19 21:44 Promethazine HCl 25 mg/Sodium Chloride 56 ml @ 110 mls/hr Q6H PRN IV Refractory N/V 12/03/18 21:45 01/02/19 21:44 Dony Sanchez MD Dec 16, 2018 12:55
--- NOTE | 2018-12-16 14:22 | Internal Med Progress Note ---
Subjective Date of Service: Dec 16, 2018 Physician Name AyakaManjinder Attending Physician Ean Joyce MD Current Medications Medications (Trade) Dose Ordered Sig/Cristofer Route PRN Reason Start Time Stop Time Status Last Admin Dose Admin Acetaminophen (Tylenol) 650 mg Q4H PRN ORAL fever 12/03/18 21:45 01/02/19 21:44 Al Hydroxide/Mg Hydroxide (Mylanta II) 30 ml Q6H PRN ORAL dyspepsia 12/03/18 21:45 01/02/19 21:44 Dextrose (Dextrose 50%) 25 ml Q30M PRN IV Hypoglycemia 12/03/18 21:45 01/02/19 21:44 Dextrose (Dextrose 50%) 50 ml Q30M PRN IV Hypoglycemia 12/03/18 21:45 01/02/19 21:44 Dextrose/ Electrolytes 1,000 ml @ 75 mls/hr [id number] IV 12/10/18 19:00 01/09/19 18:59 Diphenhydramine HCl (Benadryl) 25 mg Q6H PRN ORAL Itching/Pruritis 12/03/18 21:45 01/02/19 21:44 Heparin Sodium (Porcine) (Heparin 5000 units/ml) 5,000 units EVERY 12 HOURS SUBQ 12/04/18 09:00 01/03/19 08:59 Levetiracetam (Keppra) 500 mg Q12HR NG 12/15/18 21:00 01/14/19 20:59 Metoclopramide HCl (Reglan) 10 mg Q4H PRN IVP servere nausea 12/03/18 21:45 01/02/19 21:44 Metoprolol Tartrate (Lopressor) 25 mg Q12HR ORAL 12/04/18 21:00 01/03/19 20:59 Nitroglycerin (Ntg) 0.4 mg Q5M X 3 DOSES PRN SL Prn Chest Pain 12/03/18 21:45 01/02/19 21:44 Ondansetron HCl (Zofran) 4 mg Q6H PRN IVP Nausea & Vomiting 12/03/18 21:45 01/02/19 21:44 Pantoprazole (Protonix) 40 mg DAILY ORAL 12/16/18 09:00 01/15/19 08:59 Polyethylene Glycol (Miralax) 17 gm HSPRN PRN ORAL Constipation 12/03/18 21:45 01/02/19 21:44 Promethazine HCl 25 mg/Sodium Chloride 56 ml @ 110 mls/hr Q6H PRN IV Refractory N/V 12/03/18 21:45 01/02/19 21:44 Allergies: Coded Allergies: DIVALPROEX SODIUM (Verified Allergy, Unknown, 06/01/18) PENICILLINS (Unverified Allergy, Unknown, 11/06/18) Tolerates cephalosporins ROS Limited/Unobtainable: Yes Subjective 58 YO M admitted with G-tube malunction. Cover for Int med-Dr Joyce. Refusing meds Objective Last Vital Signs Date Time Temp Pulse Resp B/P (MAP) Pulse Ox O2 Delivery O2 Flow Rate FiO2 12/16/18 09:00 Room Air 12/16/18 04:00 97.6 84 20 155/95 (115) 96 Intake and Output 12/15/18 12/16/18 19:00 07:00 Intake Total 0 ml Output Total 500 ml 150 ml Balance -500 ml -150 ml Intake Oral 0 ml Output Urine Total 500 ml 150 ml # Bowel Movements 1 1 Objective Objective GENERAL: The patient is awake, opens his eyes, cachectic with malnutrition, less agitated, and combative. HEAD AND NECK: Pupils equal and reactive to light. Anicteric. NECK: Supple. No JVD. LUNGS: poor air entry. No wheeze or rales. Poor inspiratory effort. HEART: S1 and S2. Distant heart sounds. No murmurs or gallops. ABDOMEN: Soft, not distended not tender, old G-tube site closed., EXTREMITIES: No cyanosis or clubbing. left AKA with intact stump, right heel ulceration with muscle atrophy in bilateral lower extremities. NEUROLOGIC: Cranial nerves II through XII grossly intact. The patient is moving all the extremities spontaneously. Assessment/Plan Assessment/Plan Assessment/Plan Assessment/Plan Assessment/Plan ASSESSMENT: 1. G-tube malfunctioning with dislodge. 2. Dysphagia, status post feeding tube placement. 3. Hypertension. 4. Diabetes, type 2. 5. Alzheimer dementia. 6. History of CVA. 7. ATN / acute kidney injury. 8. Acute toxic metabolic encephalopathy. 9. Severe protein-calorie malnutrition with cachexia. 10. Status post left BKA. 11. Hypokalemia-replace K+ PLAN: 1. In medical floor. 2. We will follow up with Dr. Sanchez from Pulmonary/Critical Care, from General Surgery, and Dr. Mcneil from Gastroenterology. 3. Code status is DNR/DNI. 4. DVT prophylaxis, heparin subcutaneous. 5. no plan for PEG placement soon-see GI note. 6. Monitor laboratory. 7. Defer PEG, follow up bioethics and ST evaluation. 8. Discharge planning 9. Continue D5 1/2 NS + 20 meq kcl/L 10. refusing meds Manjinder Marley MD Dec 16, 2018 14:22
--- NOTE | 2018-12-16 14:24 | Surgery Progress Note ---
Surgery Progress Note Subjective Additional Comments resting comfortable. does not want to be bothered Objective Last 24 Hour Vital Signs Date Time Temp Pulse Resp B/P (MAP) Pulse Ox O2 Delivery O2 Flow Rate FiO2 12/16/18 09:00 Room Air 12/16/18 04:00 97.6 84 20 155/95 (115) 96 12/16/18 00:00 96.5 71 20 107/62 (77) 98 12/15/18 21:00 73 113/61 12/15/18 21:00 Room Air 12/15/18 20:00 97.8 73 20 113/61 (78) 100 I&O Intake and Output 12/15/18 12/16/18 19:00 07:00 Intake Total 0 ml Output Total 500 ml 150 ml Balance -500 ml -150 ml Intake Oral 0 ml Output Urine Total 500 ml 150 ml # Bowel Movements 1 1 Dressing: other Wound: other Drains: other Cardiovascular: RSR Respiratory: clear Abdomen: soft, present bowel sounds, non-distended Extremities: no cyanosis Plan Problems: (1) Malfunction of gastrostomy tube Assessment & Plan: Patient presents with dislodged gastric feeding tube. Prior site of tube near closed. As per gastrology no patient's prior records demonstrate no artificial feeding. PT HAS BEEN REFUSING NURSING CARE AND PO TRIALS. PER METAL ROOM DENTAL TECHNICIAN, SPOKE TO PT AND PT AGREED PO TRIALS. PT SEEN AT BEDSIDE IN PM. ALERT, ATTEMPTED PO TRIALS AND ORAL CARE. PT REFUSED BY SHAKING HIS HEAD AND LOOKING AWAY EVEN GIVEN MAX ENCOURAGEMENT. RN, MICHAEL BHARDWAJ, ALSO AT BEDSIDE TO ENCOURAGEMENT PT FOR PO TRIALS. HOWEVER, PT REFUSED. UNABLE TO FULLY ASSESS PT'S SWALLOWING FUNCTION. PER PT AND FAMILY WISHES, NO ARTIFICIAL FEEDING, INCLUDING TUBE FEEDING. IF PO IS GIVEN FOR QUALITY OF LIFE COMFORT FEEDING, CONSIDER LIQUIFIED PUREED, LIKE NECTAR THICK SOUP CONSISTENCY WITH NECTAR THICK LIQUIDS WITH STRICT ASPIRATION PRECAUTIONS WITH 1TO1 FEEDING. IV fluids refusing care plans d/c planning cont with wound instructions upon dc Shiv Horvath Dec 16, 2018 14:24
[2018-12-16 18:23] VITALS: BP 118/58
--- NOTE | 2018-12-16 19:29 | NUR ---
NURSE NOTES: Received patient awake in bed, able to verbalize needs, no c/o pain at this time. No IV access. Vargas catheter noted. Fall and safety precautions taken. History of non-compliance noted.
[2018-12-16 20:00] VITALS: BP 102/64
--- NOTE | 2018-12-16 20:00 | NUR ---
CASE MANAGEMENT: REVIEW 12/16/2018 SI:DEHYDRATION. WEAKNESS. T 98.9 HR 83 RR 18 B/P 118/58 SATS 99% ON RA NO LABS TODAY IS:IVF @ 75 mL/HR LOPRESSOR NG Q12H KEPPRA NG Q12H MED/SURG STATUS PLAN OF CARE: IVF WOUND CARE
--- NOTE | 2018-12-16 22:50 | General Progress Note ---
Assessment/Plan Problem List: (1) Schizoaffective disorder ICD Codes: F25.9 - Schizoaffective disorder, unspecified SNOMED: 44018962 Assessment/Plan Haldol dec 25mg IM the pt lacks capacity to make decisions Subjective Neurologic/Psychiatric: Reports: anxiety, depressed, emotional problems Allergies: Coded Allergies: DIVALPROEX SODIUM (Verified Allergy, Unknown, 06/01/18) PENICILLINS (Unverified Allergy, Unknown, 11/06/18) Tolerates cephalosporins Subjective the pt is disorganized and confused the pt has waxing and waning Objective Last 24 Hour Vital Signs Date Time Temp Pulse Resp B/P (MAP) Pulse Ox O2 Delivery O2 Flow Rate FiO2 12/16/18 22:14 Room Air 12/16/18 20:44 83 118/58 12/16/18 20:00 97.1 90 20 102/64 (77) 99 12/16/18 18:23 98.9 83 18 118/58 (78) 99 12/16/18 09:00 Room Air 12/16/18 04:00 97.6 84 20 155/95 (115) 96 12/16/18 00:00 96.5 71 20 107/62 (77) 98 Intake and Output 12/15/18 12/16/18 18:59 06:59 Intake Total 0 ml Output Total 500 ml 150 ml Balance -500 ml -150 ml Intake Oral 0 ml Output Urine Total 500 ml 150 ml # Bowel Movements 1 1 Height (Feet): 5 Height (Inches): 6.00 Weight (Pounds): 117 Katherine Orozco MD Dec 16, 2018 22:50
[2018-12-17 04:00] VITALS: BP 100/64
--- NOTE | 2018-12-17 07:05 | NUR ---
HAND-OFF: Report given to JULIET Mesa.
--- NOTE | 2018-12-17 08:17 | NUR ---
NURSE NOTES: Patient is alert and oriented to name. Patient has no reports of discomfort at the moment. Patient has ferreira. Ferreira is secured and draining. Side rails are up X2, bed is locked, and in lowest position. Will continue to monitor.
--- NOTE | 2018-12-17 08:45 | NUR ---
INSPECTOR PACKER GLASS CONTAINERCLINICAL SALES CONSULTANT SI: DEHYDRATION . WEAKNESS VS: BP 118/58, P 83, T 97.1, RR 20, SpO2 98 IS:PROTONIX 40mg KEPPRA 500mg NG D5/ELECTROLYTES x1L IV LOPRESSOR 25mg HEPARIN SUBQ MED/SURG STATUS
[2018-12-17] MEDS: Heparin 5000 units/ml inj SUBQ SCH ×2 (09:00→21:00)
[2018-12-17] MEDS: Metoprolol 25mg tab ORAL SCH ×2 (09:00→20:59)
[2018-12-17] MEDS: levETIRAcetam 500mg/5ml Liquid NG SCH ×2 (09:00→20:59)
--- NOTE | 2018-12-17 10:38 | GI Progress Note ---
Assessment/Plan Problems: (1) Severe malnutrition ICD Codes: E43 - Unspecified severe protein-calorie malnutrition SNOMED: 85022132 Status: stable Status Narrative Discussed with Dr. Mcneil Assessment/Plan POLST reviewed noted with no artificial feeding. patient refusing all care, brother wants to respect patients wishes recommend hospice care No plans for PEG placement. advance diet, push PO dc planning The patient was seen and examined at bedside and all new and available data was reviewed in the patients chart. I agree with the above findings, impression and plan. (Patient seen earlier today. Signature stamp does not reflect patient encounter time.). - Louis Mcneil MD Subjective Subjective Patient refused breakfast, stated he wanted a turkey sandwich Objective Last 24 Hour Vital Signs Date Time Temp Pulse Resp B/P (MAP) Pulse Ox O2 Delivery O2 Flow Rate FiO2 12/17/18 08:30 Room Air 12/17/18 04:00 98.0 84 20 100/64 (76) 98 12/16/18 22:14 Room Air 12/16/18 20:44 83 118/58 12/16/18 20:00 97.1 90 20 102/64 (77) 99 12/16/18 18:23 98.9 83 18 118/58 (78) 99 Intake and Output 12/16/18 12/17/18 19:00 07:00 Output Total 400 ml Balance -400 ml Output Urine Total 400 ml # Bowel Movements 1 1 Height (Feet): 5 Height (Inches): 6.00 Weight (Pounds): 117 General Appearance: WD/WN, no apparent distress, alert, other - Periods of agitati Cardiovascular: normal rate Respiratory/Chest: normal breath sounds, no respiratory distress Abdominal Exam: normal bowel sounds, non tender, soft Extremities: normal range of motion, non-tender Finn El CERTIFIED LEGAL SECRETARY SPECIALIST Dec 17, 2018 10:38
[2018-12-17] MEDS: D5 1/2NS w/KCl 20mEq 1,000 ML IV SCH (11:00)
--- NOTE | 2018-12-17 11:34 | NUR ---
NURSE NOTES: Patient was belligerent, patient threw breakfast tray on floor. Patient swung hands at RN. Patient refused AM medications.
--- NOTE | 2018-12-17 11:36 | NUR ---
NURSE NOTES: Diet advanced per order to advance as tolerated. Discussed with GI ASSISTANT BOILER OPERATOR.
--- NOTE | 2018-12-17 11:37 | NUR ---
HAND-OFF: Report given to JULIET Meza.
--- NOTE | 2018-12-17 12:06 | Pulmonology Progress Note ---
Assessment/Plan Problems: (1) Severe malnutrition (2) Malfunction of gastrostomy tube (3) Diabetes mellitus type 2, insulin dependent (4) Schizoaffective disorder (5) History of left above knee amputation Assessment/Plan no new complains pt and his family refusing PEG placement will send him back to his [place] [facility] will start on liquid seizure medication, Keppra and prn IM ativan All medications and treatment were reviewed., Subjective ROS Limited/Unobtainable: No Constitutional: Reports: no symptoms Allergies: Coded Allergies: DIVALPROEX SODIUM (Verified Allergy, Unknown, 06/01/18) PENICILLINS (Unverified Allergy, Unknown, 11/06/18) Tolerates cephalosporins Objective Last 24 Hour Vital Signs Date Time Temp Pulse Resp B/P (MAP) Pulse Ox O2 Delivery O2 Flow Rate FiO2 12/17/18 08:30 Room Air 12/17/18 04:00 98.0 84 20 100/64 (76) 98 12/16/18 22:14 Room Air 12/16/18 20:44 83 118/58 12/16/18 20:00 97.1 90 20 102/64 (77) 99 12/16/18 18:23 98.9 83 18 118/58 (78) 99 Intake and Output 12/16/18 12/17/18 19:00 07:00 Output Total 400 ml Balance -400 ml Output Urine Total 400 ml # Bowel Movements 1 1 Objective General Appearance: WD/WN Respiratory/Chest: chest wall non-tender, lungs clear Cardiovascular: normal peripheral pulses, regular rhythm Abdomen: normal bowel sounds Genitourinary: normal external genitalia Skin: no rash Current Medications Medications (Trade) Dose Ordered Sig/Cristofer Route PRN Reason Start Time Stop Time Status Last Admin Dose Admin Acetaminophen (Tylenol) 650 mg Q4H PRN ORAL fever 12/03/18 21:45 01/02/19 21:44 Al Hydroxide/Mg Hydroxide (Mylanta II) 30 ml Q6H PRN ORAL dyspepsia 12/03/18 21:45 01/02/19 21:44 Dextrose (Dextrose 50%) 25 ml Q30M PRN IV Hypoglycemia 12/03/18 21:45 01/02/19 21:44 Dextrose (Dextrose 50%) 50 ml Q30M PRN IV Hypoglycemia 12/03/18 21:45 01/02/19 21:44 Dextrose/ Electrolytes 1,000 ml @ 75 mls/hr [id number] IV 12/10/18 19:00 01/09/19 18:59 Diphenhydramine HCl (Benadryl) 25 mg Q6H PRN ORAL Itching/Pruritis 12/03/18 21:45 01/02/19 21:44 Heparin Sodium (Porcine) (Heparin 5000 units/ml) 5,000 units EVERY 12 HOURS SUBQ 12/04/18 09:00 01/03/19 08:59 Levetiracetam (Keppra) 500 mg Q12HR NG 12/15/18 21:00 01/14/19 20:59 12/16/18 20:44 Metoclopramide HCl (Reglan) 10 mg Q4H PRN IVP servere nausea 12/03/18 21:45 01/02/19 21:44 Metoprolol Tartrate (Lopressor) 25 mg Q12HR ORAL 12/04/18 21:00 01/03/19 20:59 12/16/18 20:44 Nitroglycerin (Ntg) 0.4 mg Q5M X 3 DOSES PRN SL Prn Chest Pain 12/03/18 21:45 01/02/19 21:44 Ondansetron HCl (Zofran) 4 mg Q6H PRN IVP Nausea & Vomiting 12/03/18 21:45 01/02/19 21:44 Pantoprazole (Protonix) 40 mg DAILY ORAL 12/16/18 09:00 01/15/19 08:59 Polyethylene Glycol (Miralax) 17 gm HSPRN PRN ORAL Constipation 12/03/18 21:45 01/02/19 21:44 Promethazine HCl 25 mg/Sodium Chloride 56 ml @ 110 mls/hr Q6H PRN IV Refractory N/V 12/03/18 21:45 01/02/19 21:44 Dony Sanchez MD Dec 17, 2018 12:06
--- NOTE | 2018-12-17 12:09 | NUR ---
RD ASSESSMENT & RECOMMENDATIONS SEE CARE ACTIVITY FOR COMPLETE ASSESSMENT DAILY ESTIMATED NEEDS: Needs based on wt loss, underweight/ 49.6kg 30-40 kcals/kg 1188-7382 total kcals 1-1.5 g protein/kg 50-75 g total protein 25-30 mL/kg 6853-5775 total fluid mLs NUTRITION DIAGNOSIS: *Swallowing difficulty r/t dysphagia as evidenced by h/o PEG dep, POLST now indicates no TF, on [facility] soft chopped texture diet, refusing most meals. *Increased kcal and protein needs r/t underweight status, wt loss, wound healing as evidenced by pt is 63% IBW, w/ generalized severe wasting, possible recent significant wt loss of 10 lbs/8.4% wt loss in 1 month, admitted w/ multiple wounds, including DTI @ sacrum. CURRENT DIET: Now [facility] MED regular texture PO DIET RECOMMENDATIONS: LIBERALIZED REGULAR/ texture per HIDE TRIMMER ADDITIONAL RECOMMENDATIONS: 1) Calibrated bedscale wt, weekly wts- recent wt loss, underweight 2) Monitor POC- comfort measures, no TF at this time 3) Wound healing- MVI x 1, Vit C 500mg QD, Demetri 1pkt BID : pt refusing all meds at this time 4) Ensure Enlive TID w/ meals if pt receptive 5) Encourage PO intake - refusing most meals
--- NOTE | 2018-12-17 14:00 | Surgery Progress Note ---
Surgery Progress Note Subjective Additional Comments no acute events. stable. comfortable. wants a turkey sandwich for dinner Objective Last 24 Hour Vital Signs Date Time Temp Pulse Resp B/P (MAP) Pulse Ox O2 Delivery O2 Flow Rate FiO2 12/17/18 08:30 Room Air 12/17/18 04:00 98.0 84 20 100/64 (76) 98 12/16/18 22:14 Room Air 12/16/18 20:44 83 118/58 12/16/18 20:00 97.1 90 20 102/64 (77) 99 12/16/18 18:23 98.9 83 18 118/58 (78) 99 I&O Intake and Output 12/16/18 12/17/18 19:00 07:00 Intake Total 140 ml Output Total 400 ml 300 ml Balance -400 ml -160 ml Intake Oral 140 ml Output Urine Total 400 ml 300 ml # Bowel Movements 1 1 Dressing: other Wound: other Drains: other Cardiovascular: RSR Respiratory: decreased breath sounds Abdomen: soft, present bowel sounds, non-distended Extremities: no tenderness, no cyanosis Plan Problems: (1) Malfunction of gastrostomy tube Assessment & Plan: Patient presents with dislodged gastric feeding tube. Prior site of tube near closed. As per gastrology no patient's prior records demonstrate no artificial feeding. PT HAS BEEN REFUSING NURSING CARE AND PO TRIALS. PER CUSTOMER CARE TEAM COACH, SPOKE TO PT AND PT AGREED PO TRIALS. PT SEEN AT BEDSIDE IN PM. ALERT, ATTEMPTED PO TRIALS AND ORAL CARE. PT REFUSED BY SHAKING HIS HEAD AND LOOKING AWAY EVEN GIVEN MAX ENCOURAGEMENT. RN, MICHAEL BHARDWAJ, ALSO AT BEDSIDE TO ENCOURAGEMENT PT FOR PO TRIALS. HOWEVER, PT REFUSED. UNABLE TO FULLY ASSESS PT'S SWALLOWING FUNCTION. PER PT AND FAMILY WISHES, NO ARTIFICIAL FEEDING, INCLUDING TUBE FEEDING. IF PO IS GIVEN FOR QUALITY OF LIFE COMFORT FEEDING, CONSIDER LIQUIFIED PUREED, LIKE NECTAR THICK SOUP CONSISTENCY WITH NECTAR THICK LIQUIDS WITH STRICT ASPIRATION PRECAUTIONS WITH 1TO1 FEEDING. IV fluids refusing care plans d/c planning cont with wound instructions upon dc Shiv Horvath Dec 17, 2018 14:00
--- NOTE | 2018-12-17 17:00 | NUR ---
NURSE NOTES: Receive report from Susana,patient alert,patient refusing dinner,only wants to drink juice and water,refusing accuchecks-,vitals sign.
--- NOTE | 2018-12-17 18:10 | Internal Med Progress Note ---
Subjective Date of Service: Dec 17, 2018 Physician Name Manjinder Marley Attending Physician Ean Joyce MD Current Medications Medications (Trade) Dose Ordered Sig/Cristofer Route PRN Reason Start Time Stop Time Status Last Admin Dose Admin Acetaminophen (Tylenol) 650 mg Q4H PRN ORAL fever 12/03/18 21:45 01/02/19 21:44 Al Hydroxide/Mg Hydroxide (Mylanta II) 30 ml Q6H PRN ORAL dyspepsia 12/03/18 21:45 01/02/19 21:44 Dextrose (Dextrose 50%) 25 ml Q30M PRN IV Hypoglycemia 12/03/18 21:45 01/02/19 21:44 Dextrose (Dextrose 50%) 50 ml Q30M PRN IV Hypoglycemia 12/03/18 21:45 01/02/19 21:44 Dextrose/ Electrolytes 1,000 ml @ 75 mls/hr [id number] IV 12/10/18 19:00 01/09/19 18:59 Diphenhydramine HCl (Benadryl) 25 mg Q6H PRN ORAL Itching/Pruritis 12/03/18 21:45 01/02/19 21:44 Heparin Sodium (Porcine) (Heparin 5000 units/ml) 5,000 units EVERY 12 HOURS SUBQ 12/04/18 09:00 01/03/19 08:59 Levetiracetam (Keppra) 500 mg Q12HR NG 12/15/18 21:00 01/14/19 20:59 12/16/18 20:44 Metoclopramide HCl (Reglan) 10 mg Q4H PRN IVP servere nausea 12/03/18 21:45 01/02/19 21:44 Metoprolol Tartrate (Lopressor) 25 mg Q12HR ORAL 12/04/18 21:00 01/03/19 20:59 12/16/18 20:44 Nitroglycerin (Ntg) 0.4 mg Q5M X 3 DOSES PRN SL Prn Chest Pain 12/03/18 21:45 01/02/19 21:44 Ondansetron HCl (Zofran) 4 mg Q6H PRN IVP Nausea & Vomiting 12/03/18 21:45 01/02/19 21:44 Pantoprazole (Protonix) 40 mg DAILY ORAL 12/16/18 09:00 01/15/19 08:59 Polyethylene Glycol (Miralax) 17 gm HSPRN PRN ORAL Constipation 12/03/18 21:45 01/02/19 21:44 Promethazine HCl 25 mg/Sodium Chloride 56 ml @ 110 mls/hr Q6H PRN IV Refractory N/V 12/03/18 21:45 01/02/19 21:44 Allergies: Coded Allergies: DIVALPROEX SODIUM (Verified Allergy, Unknown, 06/01/18) PENICILLINS (Unverified Allergy, Unknown, 11/06/18) Tolerates cephalosporins ROS Limited/Unobtainable: Yes Subjective 58 YO M admitted with G-tube malunction. Cover for Int med-Dr Joyce. Refusing meds Objective Last Vital Signs Date Time Temp Pulse Resp B/P (MAP) Pulse Ox O2 Delivery O2 Flow Rate FiO2 12/17/18 08:30 Room Air 12/17/18 04:00 98.0 84 20 100/64 (76) 98 Intake and Output 12/16/18 12/17/18 19:00 07:00 Intake Total 140 ml Output Total 400 ml 300 ml Balance -400 ml -160 ml Intake Oral 140 ml Output Urine Total 400 ml 300 ml # Bowel Movements 1 1 Objective Objective GENERAL: The patient is awake, opens his eyes, cachectic with malnutrition, less agitated, and combative. HEAD AND NECK: Pupils equal and reactive to light. Anicteric. NECK: Supple. No JVD. LUNGS: poor air entry. No wheeze or rales. Poor inspiratory effort. HEART: S1 and S2. Distant heart sounds. No murmurs or gallops. ABDOMEN: Soft, not distended not tender, old G-tube site closed., EXTREMITIES: No cyanosis or clubbing. left AKA with intact stump, right heel ulceration with muscle atrophy in bilateral lower extremities. NEUROLOGIC: Cranial nerves II through XII grossly intact. The patient is moving all the extremities spontaneously. Assessment/Plan Assessment/Plan Assessment/Plan Assessment/Plan Assessment/Plan ASSESSMENT: 1. G-tube malfunctioning with dislodge. 2. Dysphagia, status post feeding tube placement. 3. Hypertension. 4. Diabetes, type 2. 5. Alzheimer dementia. 6. History of CVA. 7. ATN / acute kidney injury. 8. Acute toxic metabolic encephalopathy. 9. Severe protein-calorie malnutrition with cachexia. 10. Status post left BKA. 11. Hypokalemia-replace K+ PLAN: 1. In medical floor. 2. We will follow up with Dr. Sanchez from Pulmonary/Critical Care, from General Surgery, and Dr. Mcneil from Gastroenterology. 3. Code status is DNR/DNI. 4. DVT prophylaxis, heparin subcutaneous. 5. no plan for PEG placement soon-see GI note. 6. Monitor laboratory. 7. Defer PEG, follow up bioethics and ST evaluation. 8. Discharge planning 9. Continue D5 1/2 NS + 20 meq kcl/L 10. refusing meds Manjinder Marley MD Dec 17, 2018 18:10
--- NOTE | 2018-12-17 19:30 | NUR ---
NURSE NOTES: Patient in bed, no complaints of pain, not in acute respiratory distress. Instructed the use of call light. Call light and needs in reach. Bed in lowest position, lock engaged and alarm on. Will continue to monitor.
--- NOTE | 2018-12-17 19:44 | NUR ---
HAND-OFF: Report given to Bernardo CHUNG.
--- NOTE | 2018-12-17 21:00 | NUR ---
NURSE NOTES: Patient refused meds, vital signs and IV insertion.
--- NOTE | 2018-12-17 23:18 | General Progress Note ---
Assessment/Plan Problem List: (1) Schizoaffective disorder ICD Codes: F25.9 - Schizoaffective disorder, unspecified SNOMED: [id number] Assessment/Plan Haldol dec 25mg IM the pt lacks capacity to make decisions Subjective Neurologic/Psychiatric: Reports: anxiety, depressed, emotional problems Allergies: Coded Allergies: DIVALPROEX SODIUM (Verified Allergy, Unknown, 06/01/18) PENICILLINS (Unverified Allergy, Unknown, 11/06/18) Tolerates cephalosporins Objective Last 24 Hour Vital Signs Date Time Temp Pulse Resp B/P (MAP) Pulse Ox O2 Delivery O2 Flow Rate FiO2 12/17/18 08:30 Room Air 12/17/18 04:00 98.0 84 20 100/64 (76) 98 Intake and Output 12/16/18 12/17/18 18:59 06:59 Intake Total 140 ml Output Total 400 ml 300 ml Balance -400 ml -160 ml Intake Oral 140 ml Output Urine Total 400 ml 300 ml # Bowel Movements 1 1 Height (Feet): 5 Height (Inches): 6.00 Weight (Pounds): 117 General Appearance: alert, cachetic Katherine Orozco MD Dec 17, 2018 23:18
[2018-12-18] MEDS: D5 1/2NS w/KCl 20mEq 1,000 ML IV SCH ×2 (00:20→10:17)
--- NOTE | 2018-12-18 05:59 | NUR ---
NURSE NOTES: Pt is rested in bed. Pressure injury noted on pt's right elbow. RN attempted to reposition and wound care but pt was being combative towards RN. Was able to placed a pillow under right elbow to prevent further pressure. Kept patient dry and warm. Will continue to monitor.
--- NOTE | 2018-12-18 07:25 | NUR ---
HAND-OFF: Report given to JULIET Diaz.
--- NOTE | 2018-12-18 07:34 | NUR ---
NURSE NOTES: Patient is awake and alert,patient refusing breakfast, offer juice,water patient refusing ,ferreira catheter is in place and draining megan color urine.Will attempt later regarding breakfast.
[2018-12-18] MEDS: Metoprolol 25mg tab ORAL SCH ×2 (09:00→10:17)
[2018-12-18] MEDS: levETIRAcetam 500mg/5ml Liquid NG SCH ×2 (09:00→10:17)
[2018-12-18] MEDS: Heparin 5000 units/ml inj SUBQ SCH ×2 (09:00→10:18)
--- NOTE | 2018-12-18 10:11 | NUR ---
NURSE NOTES: Patient able to tolerate a sandwich and juice,but will not take medication as ordered.
--- NOTE | 2018-12-18 11:21 | GI Progress Note ---
Assessment/Plan Problems: (1) Severe malnutrition ICD Codes: E43 - Unspecified severe protein-calorie malnutrition SNOMED: 35508577 Status: unchanged Status Narrative Discussed with Dr. Mcneil Assessment/Plan POLST reviewed noted with no artificial feeding. patient refusing all care, brother wants to respect patients wishes recommend hospice care No plans for PEG placement. advance diet, push PO dc planning The patient was seen and examined at bedside and all new and available data was reviewed in the patients chart. I agree with the above findings, impression and plan. (Patient seen earlier today. Signature stamp does not reflect patient encounter time.). - Louis Mcneil MD Subjective Gastrointestinal/Abdominal: Reports: no symptoms Subjective Patient refused breakfast, stated he wanted a turkey sandwich Objective Last 24 Hour Vital Signs Date Time Temp Pulse Resp B/P (MAP) Pulse Ox O2 Delivery O2 Flow Rate FiO2 12/18/18 10:23 Room Air 12/17/18 21:00 Room Air Intake and Output 12/17/18 12/18/18 19:00 07:00 Intake Total 600 ml Output Total 300 ml 350 ml Balance 300 ml -350 ml Intake Oral 600 ml Output Urine Total 300 ml 350 ml # Voids 1 Height (Feet): 5 Height (Inches): 6.00 Weight (Pounds): 117 General Appearance: WD/WN, no apparent distress, alert, thin Cardiovascular: normal rate Respiratory/Chest: normal breath sounds, no respiratory distress Abdominal Exam: normal bowel sounds, non tender, soft Extremities: non-tender Finn El TUG BOAT ENGINEER Dec 18, 2018 11:21
[2018-12-18 12:11] VITALS: BP 95/54
--- NOTE | 2018-12-18 12:33 | Surgery Progress Note ---
Surgery Progress Note Subjective Additional Comments no acute events. comfortable. stable Objective Last 24 Hour Vital Signs Date Time Temp Pulse Resp B/P (MAP) Pulse Ox O2 Delivery O2 Flow Rate FiO2 12/18/18 12:11 97.3 85 18 95/54 (68) 95 12/18/18 10:23 Room Air 12/17/18 21:00 Room Air I&O Intake and Output 12/17/18 12/18/18 19:00 07:00 Intake Total 600 ml Output Total 300 ml 350 ml Balance 300 ml -350 ml Intake Oral 600 ml Output Urine Total 300 ml 350 ml # Voids 1 Dressing: dry Wound: clean Drains: none Cardiovascular: RSR Respiratory: clear Abdomen: soft, flat, non-tender, non-distended Extremities: no tenderness, no cyanosis Plan Problems: (1) Malfunction of gastrostomy tube Assessment & Plan: Patient presents with dislodged gastric feeding tube. Prior site of tube near closed. As per gastrology no patient's prior records demonstrate no artificial feeding. Pending placement. Asking for more food. Exam unchanged IV fluids refusing care plans d/c planning cont with wound instructions upon dc Shiv Horvath Dec 18, 2018 12:33
--- NOTE | 2018-12-18 13:13 | NUR ---
HUMAN RESOURCES HR GENERALISTBUTTERMILK DRIER OPERATOR SI: DEHYDRATION . WEAKNESS VS: BP 95/54, P 85, T 97.3, RR 18, SpO2 95 IS:HEPARIN SUBQ LOPRESSOR 25mg D5/ELECTROLYTES x1L IV KEPPRA 500mg NG PROTONIX 40mg MED/SURG STATUS
--- NOTE | 2018-12-18 13:31 | Pulmonology Progress Note ---
Assessment/Plan Problems: (1) Severe malnutrition (2) Malfunction of gastrostomy tube (3) Diabetes mellitus type 2, insulin dependent (4) Schizoaffective disorder (5) History of left above knee amputation Assessment/Plan no new complains pt and his family refusing PEG placement will send him back to his alf will start on liquid seizure medication, Keppra and prn IM ativan All medications and treatment were reviewed., d/w shelter case manager of the [facility]. They are looking for a bed as well. Subjective ROS Limited/Unobtainable: No Constitutional: Reports: no symptoms HEENT: Repors: no symptoms Allergies: Coded Allergies: DIVALPROEX SODIUM (Verified Allergy, Unknown, 06/01/18) PENICILLINS (Unverified Allergy, Unknown, 11/06/18) Tolerates cephalosporins Objective Last 24 Hour Vital Signs Date Time Temp Pulse Resp B/P (MAP) Pulse Ox O2 Delivery O2 Flow Rate FiO2 12/18/18 12:11 97.3 85 18 95/54 (68) 95 12/18/18 10:23 Room Air 12/17/18 21:00 Room Air Intake and Output 12/17/18 12/18/18 19:00 07:00 Intake Total 600 ml Output Total 300 ml 350 ml Balance 300 ml -350 ml Intake Oral 600 ml Output Urine Total 300 ml 350 ml # Voids 1 Objective General Appearance: WD/WN Respiratory/Chest: chest wall non-tender, lungs clear Cardiovascular: normal peripheral pulses, regular rhythm Abdomen: normal bowel sounds Genitourinary: normal external genitalia Skin: no rash Current Medications Medications (Trade) Dose Ordered Sig/Cristofer Route PRN Reason Start Time Stop Time Status Last Admin Dose Admin Acetaminophen (Tylenol) 650 mg Q4H PRN ORAL fever 12/03/18 21:45 01/02/19 21:44 Al Hydroxide/Mg Hydroxide (Mylanta II) 30 ml Q6H PRN ORAL dyspepsia 12/03/18 21:45 01/02/19 21:44 Dextrose (Dextrose 50%) 25 ml Q30M PRN IV Hypoglycemia 12/03/18 21:45 01/02/19 21:44 Dextrose (Dextrose 50%) 50 ml Q30M PRN IV Hypoglycemia 12/03/18 21:45 01/02/19 21:44 Dextrose/ Electrolytes 1,000 ml @ 75 mls/hr [id number] IV 12/10/18 19:00 01/09/19 18:59 Diphenhydramine HCl (Benadryl) 25 mg Q6H PRN ORAL Itching/Pruritis 12/03/18 21:45 01/02/19 21:44 Heparin Sodium (Porcine) (Heparin 5000 units/ml) 5,000 units EVERY 12 HOURS SUBQ 12/04/18 09:00 01/03/19 08:59 Levetiracetam (Keppra) 500 mg Q12HR NG 12/15/18 21:00 01/14/19 20:59 12/16/18 20:44 Metoclopramide HCl (Reglan) 10 mg Q4H PRN IVP servere nausea 12/03/18 21:45 01/02/19 21:44 Metoprolol Tartrate (Lopressor) 25 mg Q12HR ORAL 12/04/18 21:00 01/03/19 20:59 12/16/18 20:44 Nitroglycerin (Ntg) 0.4 mg Q5M X 3 DOSES PRN SL Prn Chest Pain 12/03/18 21:45 01/02/19 21:44 Ondansetron HCl (Zofran) 4 mg Q6H PRN IVP Nausea & Vomiting 12/03/18 21:45 01/02/19 21:44 Pantoprazole (Protonix) 40 mg DAILY ORAL 12/16/18 09:00 01/15/19 08:59 Polyethylene Glycol (Miralax) 17 gm HSPRN PRN ORAL Constipation 12/03/18 21:45 01/02/19 21:44 Promethazine HCl 25 mg/Sodium Chloride 56 ml @ 110 mls/hr Q6H PRN IV Refractory N/V 12/03/18 21:45 01/02/19 21:44 Dony Sanchez MD Dec 18, 2018 13:31
--- NOTE | 2018-12-18 15:46 | NUR ---
*-* INSURANCE *-* REVIEWS FAXED TO: [id number] NCM: MARIS Sanchez P- [phone] F- [phone]....
[2018-12-18 16:26] VITALS: BP 102/56
--- NOTE | 2018-12-18 17:14 | Internal Med Progress Note ---
Subjective Date of Service: Dec 18, 2018 Physician Name Manjinder Marley Attending Physician Ean Joyce MD Current Medications Medications (Trade) Dose Ordered Sig/Cristofer Route PRN Reason Start Time Stop Time Status Last Admin Dose Admin Acetaminophen (Tylenol) 650 mg Q4H PRN ORAL fever 12/03/18 21:45 01/02/19 21:44 Al Hydroxide/Mg Hydroxide (Mylanta II) 30 ml Q6H PRN ORAL dyspepsia 12/03/18 21:45 01/02/19 21:44 Dextrose (Dextrose 50%) 25 ml Q30M PRN IV Hypoglycemia 12/03/18 21:45 01/02/19 21:44 Dextrose (Dextrose 50%) 50 ml Q30M PRN IV Hypoglycemia 12/03/18 21:45 01/02/19 21:44 Dextrose/ Electrolytes 1,000 ml @ 75 mls/hr [id number] IV 12/10/18 19:00 01/09/19 18:59 Diphenhydramine HCl (Benadryl) 25 mg Q6H PRN ORAL Itching/Pruritis 12/03/18 21:45 01/02/19 21:44 Heparin Sodium (Porcine) (Heparin 5000 units/ml) 5,000 units EVERY 12 HOURS SUBQ 12/04/18 09:00 01/03/19 08:59 Levetiracetam (Keppra) 500 mg Q12HR NG 12/15/18 21:00 01/14/19 20:59 12/16/18 20:44 Metoclopramide HCl (Reglan) 10 mg Q4H PRN IVP servere nausea 12/03/18 21:45 01/02/19 21:44 Metoprolol Tartrate (Lopressor) 25 mg Q12HR ORAL 12/04/18 21:00 01/03/19 20:59 12/16/18 20:44 Nitroglycerin (Ntg) 0.4 mg Q5M X 3 DOSES PRN SL Prn Chest Pain 12/03/18 21:45 01/02/19 21:44 Ondansetron HCl (Zofran) 4 mg Q6H PRN IVP Nausea & Vomiting 12/03/18 21:45 01/02/19 21:44 Pantoprazole (Protonix) 40 mg DAILY ORAL 12/16/18 09:00 01/15/19 08:59 Polyethylene Glycol (Miralax) 17 gm HSPRN PRN ORAL Constipation 12/03/18 21:45 01/02/19 21:44 Promethazine HCl 25 mg/Sodium Chloride 56 ml @ 110 mls/hr Q6H PRN IV Refractory N/V 12/03/18 21:45 01/02/19 21:44 Allergies: Coded Allergies: DIVALPROEX SODIUM (Verified Allergy, Unknown, 06/01/18) PENICILLINS (Unverified Allergy, Unknown, 11/06/18) Tolerates cephalosporins ROS Limited/Unobtainable: No Constitutional: Reports: no symptoms HEENT: Reports: no symptoms Cardiovascular: Reports: no symptoms Respiratory: Reports: no symptoms Gastrointestinal/Abdominal: Reports: no symptoms Genitourinary: Reports: no symptoms Neurologic/Psychiatric: Reports: no symptoms Subjective 58 YO M admitted with G-tube malunction. Cover for Int med-Dr Joyce. Refusing meds and labs Objective Last Vital Signs Date Time Temp Pulse Resp B/P (MAP) Pulse Ox O2 Delivery O2 Flow Rate FiO2 12/18/18 16:26 98.0 82 18 102/56 (71) 95 12/18/18 10:23 Room Air Intake and Output 12/17/18 12/18/18 19:00 07:00 Intake Total 600 ml Output Total 300 ml 350 ml Balance 300 ml -350 ml Intake Oral 600 ml Output Urine Total 300 ml 350 ml # Voids 1 Objective Objective GENERAL: The patient is awake, opens his eyes, cachectic with malnutrition, less agitated, and combative. HEAD AND NECK: Pupils equal and reactive to light. Anicteric. NECK: Supple. No JVD. LUNGS: poor air entry. No wheeze or rales. Poor inspiratory effort. HEART: S1 and S2. Distant heart sounds. No murmurs or gallops. ABDOMEN: Soft, not distended not tender, old G-tube site closed., EXTREMITIES: No cyanosis or clubbing. left AKA with intact stump, right heel ulceration with muscle atrophy in bilateral lower extremities. NEUROLOGIC: Cranial nerves II through XII grossly intact. The patient is moving all the extremities spontaneously. Assessment/Plan Assessment/Plan Assessment/Plan Assessment/Plan Assessment/Plan ASSESSMENT: 1. G-tube malfunctioning with dislodge. 2. Dysphagia, status post feeding tube placement. 3. Hypertension. 4. Diabetes, type 2. 5. Alzheimer dementia. 6. History of CVA. 7. ATN / acute kidney injury. 8. Acute toxic metabolic encephalopathy. 9. Severe protein-calorie malnutrition with cachexia. 10. Status post left BKA. 11. Hypokalemia-replace K+ PLAN: 1. In medical floor. 2. We will follow up with Dr. Sanchez from Pulmonary/Critical Care, from General Surgery, and Dr. Mcneil from Gastroenterology. 3. Code status is DNR/DNI. 4. DVT prophylaxis, heparin subcutaneous. 5. no plan for PEG placement soon-see GI note. 6. Monitor laboratory. 7. Defer PEG, follow up bioethics and ST evaluation. 8. Discharge planning 9. Continue D5 1/2 NS + 20 meq kcl/L 10. refusing meds and labs Manjinder Marley MD Dec 18, 2018 17:14
--- NOTE | 2018-12-18 18:08 | NUR ---
NURSE NOTES: Skin care given,turned and position ,linen changed,patient more cooperative today,patient took in moreBed alarm on,call light within reach. fluids and food today.
--- NOTE | 2018-12-18 19:14 | NUR ---
HAND-OFF: Report given to SUSAN CHUNG.
--- NOTE | 2018-12-18 19:57 | NUR ---
NURSE NOTES: Received report from JULIET Diaz. Patient A&Ox1. On room air, no signs of distress or labored breathing. NO IV access, MD aware. Vargas intact, patent, and draining urine. Bed in lowest position with call light in reach. Will continue with plan of care.
--- NOTE | 2018-12-18 20:09 | General Progress Note ---
Assessment/Plan Problem List: (1) Schizoaffective disorder ICD Codes: F25.9 - Schizoaffective disorder, unspecified SNOMED: 28330505 Status: stable Assessment/Plan Haldol dec 25mg IM the pt lacks capacity to make decisions Subjective Neurologic/Psychiatric: Reports: anxiety, depressed, emotional problems Allergies: Coded Allergies: DIVALPROEX SODIUM (Verified Allergy, Unknown, 06/01/18) PENICILLINS (Unverified Allergy, Unknown, 11/06/18) Tolerates cephalosporins Objective Last 24 Hour Vital Signs Date Time Temp Pulse Resp B/P (MAP) Pulse Ox O2 Delivery O2 Flow Rate FiO2 12/18/18 16:26 98.0 82 18 102/56 (71) 95 12/18/18 12:11 97.3 85 18 95/54 (68) 95 12/18/18 10:23 Room Air 12/17/18 21:00 Room Air Intake and Output 12/17/18 12/18/18 19:00 07:00 Intake Total 600 ml Output Total 300 ml 350 ml Balance 300 ml -350 ml Intake Oral 600 ml Output Urine Total 300 ml 350 ml # Voids 1 Height (Feet): 5 Height (Inches): 6.00 Weight (Pounds): 117 General Appearance: WD/WN, no apparent distress, alert Katherine Orozco MD Dec 18, 2018 20:09
--- NOTE | 2018-12-18 21:20 | NUR ---
pt refused bath Addendum: 12/18/18 at 2121 by CONSUELO SINGER RN RN Amended: Links added.
[2018-12-19] MEDS: D5 1/2NS w/KCl 20mEq 1,000 ML IV SCH (03:00)
--- NOTE | 2018-12-19 07:34 | NUR ---
NURSE NOTES: Patient alert x1, on room air, no sign of distress and shortness of breath; no sign of chest pain; ferreira in place draines yellow urine; NO IV MD aware; bed at lowest position, side rails padded; breaks engaged; will keep monitoring.
--- NOTE | 2018-12-19 07:47 | NUR ---
HAND-OFF: Report given to JULIET Dunlap.
[2018-12-19 08:00] VITALS: BP 90/55
--- NOTE | 2018-12-19 08:23 | NUR ---
NURSE NOTES:WOUND CARE FOLLOW-UP NOTES:Sacral area resolved .Skin is pink and intact. R heel blister reabsorbed -dry (L)1cm x (W)1cm . L BKA stump without evidence of skin breakdown . No new skin concerns noted.
[2018-12-19] MEDS: Metoprolol 25mg tab ORAL SCH (08:57)
[2018-12-19] MEDS: levETIRAcetam 500mg/5ml Liquid NG SCH (08:57)
[2018-12-19] MEDS: Heparin 5000 units/ml inj SUBQ SCH (08:58)
--- NOTE | 2018-12-19 11:41 | GI Progress Note ---
Assessment/Plan Problems: (1) Severe malnutrition ICD Codes: E43 - Unspecified severe protein-calorie malnutrition SNOMED: 34338951 Status: doing well, stable Status Narrative Discussed with Dr. Mcneil. Assessment/Plan POLST reviewed noted with no artificial feeding. recommend hospice care No plans for PEG placement. advance diet, push PO strict aspiration precautions dc planning The patient was seen and examined at bedside and all new and available data was reviewed in the patients chart. I agree with the above findings, impression and plan. (Patient seen earlier today. Signature stamp does not reflect patient encounter time.). - Louis Mcneil MD Subjective Subjective Patient refused breakfast, stated he wanted a turkey sandwich Objective Last 24 Hour Vital Signs Date Time Temp Pulse Resp B/P (MAP) Pulse Ox O2 Delivery O2 Flow Rate FiO2 12/19/18 09:00 Room Air 12/19/18 08:00 98.4 78 19 90/55 (67) 97 12/18/18 21:00 Room Air 12/18/18 16:26 98.0 82 18 102/56 (71) 95 12/18/18 12:11 97.3 85 18 95/54 (68) 95 Intake and Output 12/18/18 12/19/18 19:00 07:00 Intake Total 1110 ml Output Total 600 ml 1150 ml Balance 510 ml -1150 ml Intake Oral 1110 ml Output Urine Total 600 ml 1150 ml # Bowel Movements 1 Height (Feet): 5 Height (Inches): 6.00 Weight (Pounds): 126 General Appearance: WD/WN, no apparent distress, alert Cardiovascular: normal rate Respiratory/Chest: normal breath sounds, no respiratory distress Abdominal Exam: normal bowel sounds, non tender, soft Extremities: normal range of motion, non-tender Finn El ULTRASONIC SOLDERER Dec 19, 2018 11:41
--- NOTE | 2018-12-19 11:42 | NUR ---
MICROFILM TECHNICIAN NOTES PT ACCEPTED BACK TO [facility]. SNF. ROOM 8C. CM TO SET UP TRANSPORTATION.
--- NOTE | 2018-12-19 11:51 | NUR ---
*-* DISCHARGE PLANNING *-* PATIENT IS DISCHARGED TO: [facility] ROOM# 8-C SKILLED T:[phone] FOR NURSE TO NURSE REPORT [facility] HAS BEEN ARRANGED FOR DIRECTOR PROFESSIONAL SERVICES AT [address] [id number]
--- NOTE | 2018-12-19 11:52 | NUR ---
NURSE NOTES: Patient refused blood glucose check and also patient refused to take mooring medications.
[2018-12-19 12:00] VITALS: BP 101/52
--- NOTE | 2018-12-19 12:47 | Pulmonology Progress Note ---
Assessment/Plan Problems: (1) Severe malnutrition (2) Malfunction of gastrostomy tube (3) Diabetes mellitus type 2, insulin dependent (4) Schizoaffective disorder (5) History of left above knee amputation Assessment/Plan no new complains pt and his family refusing PEG placement will send him back to his [place] [facility] will start on liquid seizure medication, Keppra and prn IM ativan All medications and treatment were reviewed., d/w high risk case manager of the [facility]. They are looking for a bed as well. Subjective ROS Limited/Unobtainable: No Constitutional: Reports: no symptoms HEENT: Repors: no symptoms Respiratory: Reports: no symptoms Allergies: Coded Allergies: DIVALPROEX SODIUM (Verified Allergy, Unknown, 06/01/18) PENICILLINS (Unverified Allergy, Unknown, 11/06/18) Tolerates cephalosporins Objective Last 24 Hour Vital Signs Date Time Temp Pulse Resp B/P (MAP) Pulse Ox O2 Delivery O2 Flow Rate FiO2 12/19/18 12:00 98.4 73 20 101/52 (68) 95 12/19/18 09:00 Room Air 12/19/18 08:00 98.4 78 19 90/55 (67) 97 12/18/18 21:00 Room Air 12/18/18 16:26 98.0 82 18 102/56 (71) 95 Intake and Output 12/18/18 12/19/18 19:00 07:00 Intake Total 1110 ml Output Total 600 ml 1150 ml Balance 510 ml -1150 ml Intake Oral 1110 ml Output Urine Total 600 ml 1150 ml # Bowel Movements 1 Objective General Appearance: WD/WN Respiratory/Chest: chest wall non-tender, lungs clear Cardiovascular: normal peripheral pulses, regular rhythm Abdomen: normal bowel sounds Genitourinary: normal external genitalia Skin: no rash Current Medications Medications (Trade) Dose Ordered Sig/Cristofer Route PRN Reason Start Time Stop Time Status Last Admin Dose Admin Acetaminophen (Tylenol) 650 mg Q4H PRN ORAL fever 12/03/18 21:45 01/02/19 21:44 Al Hydroxide/Mg Hydroxide (Mylanta II) 30 ml Q6H PRN ORAL dyspepsia 12/03/18 21:45 01/02/19 21:44 Dextrose (Dextrose 50%) 25 ml Q30M PRN IV Hypoglycemia 12/03/18 21:45 01/02/19 21:44 Dextrose (Dextrose 50%) 50 ml Q30M PRN IV Hypoglycemia 12/03/18 21:45 01/02/19 21:44 Dextrose/ Electrolytes 1,000 ml @ 75 mls/hr [id number] IV 12/10/18 19:00 01/09/19 18:59 Diphenhydramine HCl (Benadryl) 25 mg Q6H PRN ORAL Itching/Pruritis 12/03/18 21:45 01/02/19 21:44 Heparin Sodium (Porcine) (Heparin 5000 units/ml) 5,000 units EVERY 12 HOURS SUBQ 12/04/18 09:00 01/03/19 08:59 Levetiracetam (Keppra) 500 mg Q12HR NG 12/15/18 21:00 01/14/19 20:59 12/16/18 20:44 Metoclopramide HCl (Reglan) 10 mg Q4H PRN IVP servere nausea 12/03/18 21:45 01/02/19 21:44 Metoprolol Tartrate (Lopressor) 25 mg Q12HR ORAL 12/04/18 21:00 01/03/19 20:59 12/16/18 20:44 Nitroglycerin (Ntg) 0.4 mg Q5M X 3 DOSES PRN SL Prn Chest Pain 12/03/18 21:45 01/02/19 21:44 Ondansetron HCl (Zofran) 4 mg Q6H PRN IVP Nausea & Vomiting 12/03/18 21:45 01/02/19 21:44 Pantoprazole (Protonix) 40 mg DAILY ORAL 12/16/18 09:00 01/15/19 08:59 Polyethylene Glycol (Miralax) 17 gm HSPRN PRN ORAL Constipation 12/03/18 21:45 01/02/19 21:44 Promethazine HCl 25 mg/Sodium Chloride 56 ml @ 110 mls/hr Q6H PRN IV Refractory N/V 12/03/18 21:45 01/02/19 21:44 Dony Sanchez MD Dec 19, 2018 12:47
--- NOTE | 2018-12-19 13:15 | NUR ---
NURSE NOTES: I tried to call x2 to [facility] to give report on patient, no body is answering the phone. Will keep trying.
--- NOTE | 2018-12-19 13:27 | NUR ---
NURSE NOTES: [facility]
--- NOTE | 2018-12-19 14:28 | NUR ---
NURSE NOTES: Patient discharged around 1330, left the floor by jess accompanied by two ambulance personnel. Wound care provided and pictures taken before discharge and down loaded. Name tag removed. Report give to [place] at [facility]. Vitals are stable. Patient doesn't have any belongings.
--- NOTE | 2018-12-19 18:41 | Internal Med Progress Note ---
Subjective Date of Service: Dec 19, 2018 Physician Name Manjinder Marley Attending Physician Ean Joyce MD Allergies: Coded Allergies: DIVALPROEX SODIUM (Verified Allergy, Unknown, 06/01/18) PENICILLINS (Unverified Allergy, Unknown, 11/06/18) Tolerates cephalosporins ROS Limited/Unobtainable: No Constitutional: Reports: no symptoms HEENT: Reports: no symptoms Cardiovascular: Reports: no symptoms Respiratory: Reports: no symptoms Gastrointestinal/Abdominal: Reports: no symptoms Genitourinary: Reports: no symptoms Neurologic/Psychiatric: Reports: no symptoms Subjective 58 YO M admitted with G-tube malunction. Cover for Int med-Dr Joyce. Refusing meds and labs Objective Last Vital Signs Date Time Temp Pulse Resp B/P (MAP) Pulse Ox O2 Delivery O2 Flow Rate FiO2 12/19/18 12:00 98.4 73 20 101/52 (68) 95 12/19/18 09:00 Room Air Intake and Output 12/18/18 12/19/18 19:00 07:00 Intake Total 1110 ml Output Total 600 ml 1150 ml Balance 510 ml -1150 ml Intake Oral 1110 ml Output Urine Total 600 ml 1150 ml # Bowel Movements 1 Objective Objective GENERAL: The patient is awake, opens his eyes, cachectic with malnutrition, less agitated, and combative. HEAD AND NECK: Pupils equal and reactive to light. Anicteric. NECK: Supple. No JVD. LUNGS: poor air entry. No wheeze or rales. Poor inspiratory effort. HEART: S1 and S2. Distant heart sounds. No murmurs or gallops. ABDOMEN: Soft, not distended not tender, old G-tube site closed., EXTREMITIES: No cyanosis or clubbing. left AKA with intact stump, right heel ulceration with muscle atrophy in bilateral lower extremities. NEUROLOGIC: Cranial nerves II through XII grossly intact. The patient is moving all the extremities spontaneously. Assessment/Plan Assessment/Plan Assessment/Plan Assessment/Plan Assessment/Plan ASSESSMENT: 1. G-tube malfunctioning with dislodge. 2. Dysphagia, status post feeding tube placement. 3. Hypertension. 4. Diabetes, type 2. 5. Alzheimer dementia. 6. History of CVA. 7. ATN / acute kidney injury. 8. Acute toxic metabolic encephalopathy. 9. Severe protein-calorie malnutrition with cachexia. 10. Status post left BKA. 11. Hypokalemia-replace K+ PLAN: 1. In medical floor. 2. We will follow up with Dr. Sanchez from Pulmonary/Critical Care, from General Surgery, and Dr. Mcneil from Gastroenterology. 3. Code status is DNR/DNI. 4. DVT prophylaxis, heparin subcutaneous. 5. no plan for PEG placement soon-see GI note. 6. Monitor laboratory. 7. Defer PEG, follow up bioethics and ST evaluation. 8. Discharge planning 9. Continue D5 1/2 NS + 20 meq kcl/L 10. refusing meds and labs 11. Discharge to [facility] today Manjinder Marley MD Dec 19, 2018 18:41
--- NOTE | 2018-12-19 21:17 | General Progress Note ---
Assessment/Plan Problem List: (1) Schizoaffective disorder ICD Codes: F25.9 - Schizoaffective disorder, unspecified SNOMED: 83298960 Assessment/Plan Haldol dec 25mg IM the pt lacks capacity to make decisions Subjective Neurologic/Psychiatric: Reports: anxiety, depressed, emotional problems Allergies: Coded Allergies: DIVALPROEX SODIUM (Verified Allergy, Unknown, 06/01/18) PENICILLINS (Unverified Allergy, Unknown, 11/06/18) Tolerates cephalosporins Objective Last 24 Hour Vital Signs Date Time Temp Pulse Resp B/P (MAP) Pulse Ox O2 Delivery O2 Flow Rate FiO2 12/19/18 12:00 98.4 73 20 101/52 (68) 95 12/19/18 09:00 Room Air 12/19/18 08:00 98.4 78 19 90/55 (67) 97 Intake and Output 12/18/18 12/19/18 19:00 07:00 Intake Total 1110 ml Output Total 600 ml 1150 ml Balance 510 ml -1150 ml Intake Oral 1110 ml Output Urine Total 600 ml 1150 ml # Bowel Movements 1 Height (Feet): 5 Height (Inches): 6.00 Weight (Pounds): 126 General Appearance: WD/WN, no apparent distress, alert Katherine Orozco MD Dec 19, 2018 21:17
--- NOTE | 2018-12-20 12:18 | Discharge Summary ---
Discharge Summary Discharge Summary _ DATE OF ADMISSION: 12/03/2018 DATE OF DISCHARGE: 12/19/2018 ADMITTING MD: Dr. Ean Joyce DISCHARGED BY: Dr. Dony Sanchez CONSULTANTS: Dr. Dony Mcneil [facility] COURSE: Patient is a 58-year-old gentleman with past medical history significant for prior history of CVA, Alzheimer's dementia with cognitive impairment, seizure disorder, aphasia, hypertension, diabetes type 2, status post PEG placement, who presented from the hospital from nursing facility after PEG tube was dislodged. The patient required feeding and medication. Patient himself had underlying dementia and was very combative. CODE STATUS DNR/DNI. On evaluation at ED, blood work showed WBC of 14, hemoglobin and hematocrit were stable. Sodium was elevated to 156, chloride 113. BUN 72, creatinine 1.1. He was given IV hydration. He was then admitted for evaluation of malfunctioning G-tube, dehydration and weakness. GI was consulted. Patient was placed on n.p.o. He was given IV fluids. POLST stated no artificial feeding. Recommended bioethics and speech therapy evaluation. Social service was contacted. Bioethics consult not required. Patient's family and patient refused PEG placement. Unable to do swallow evaluation as patient would not follow directions, unable to assess patient's swallowing function. Surgery was consulted. Patient's G-tube site was inspected and noted to be near completely closed. She was also noted to have wounds upon admission. Patient had right buttock /sacral decubitus ulcer stage 3. He was given wound care. He was placed on APM/MEEK mattress with frequent repositioning and offloading. Psychiatric evaluation was done. Patient was noncompliant and refusing care. He was diagnosed with schizoaffective disorder. He was evaluated to lack the capacity to make medical decisions. He was given Haldol IM prn. Electrolytes were corrected. He was eventually discharged back to snf. FINAL DIAGNOSES: G-tube malfunction with dislodgment Dysphagia, status post feeding tube Hypertension Diabetes mellitus type 2 Alzheimer's dementia History of CVA Acute kidney injury with ATN Acute toxic metabolic encephalopathy Severe protein calorie malnutrition with cachexia status post left BKA Hypokalemia Schizoaffective disorder Hypertension Multiple decubitus ulcer present on admission DISPOSITION: [facility] was [facility] DISCHARGE MEDICATIONS: Refer to Discharge Medication List. I have been assigned to complete a discharge summary on this account, I was not involved with the patient's management. Ruth Ann Kathleen NP Dec 20, 2018 12:18
== END 2018-12-19 14:04 | DRG 252 ==
LOC: EDBD 20:48 → EMR 21:26 → EDBEDREQ 21:49 → 4E 22:54 → EDBEDREQ 23:11 → 4E 12-04 01:19
DX: K94.23 Gastrostomy malfunction (principal); N17.0 Acute kidney failure with tubular necrosis; E43 Unspecified severe protein-calorie malnutrition; G92 Toxic encephalopathy; L89.153 Pressure ulcer of sacral region, stage 3; G30.9 Alzheimer's disease, unspecified; R13.10 Dysphagia, unspecified; F01.50 Vascular dementia, unspecified severity, without behavioral disturbance, psychotic disturbance, mood disturbance, and anxiety; F02.80 Dementia in other diseases classified elsewhere, unspecified severity, without behavioral disturbance, psychotic disturbance, mood disturbance, and anxiety; E86.0 Dehydration; Y83.3 Surgical operation with formation of external stoma as the cause of abnormal reaction of the patient, or of later complication, without mention of misadventure at the time of the procedure; I10 Essential (primary) hypertension; E11.9 Type 2 diabetes mellitus without complications; Z89.512 Acquired absence of left leg below knee; I69.320 Aphasia following cerebral infarction; Z88.0 Allergy status to penicillin; Z88.8 Allergy status to other drugs, medicaments and biological substances; G40.909 Epilepsy, unspecified, not intractable, without status epilepticus; Z66 Do not resuscitate; Z91.15 Patient's noncompliance with renal dialysis; F25.9 Schizoaffective disorder, unspecified; Z79.4 Long term (current) use of insulin; E87.6 Hypokalemia; R31.9 Hematuria, unspecified; Z68.1 Body mass index [BMI] 19.9 or less, adult
CPT/HCPCS: 36415; 76700; 80048; 80053; 81003; 82248; 82962; 85007; 85025; 87081; 87086; 87181; 96360; 99285